=== PATIENT | male | born 1945 | race Caucasian/White ===

== ENCOUNTER 2021-10-07 08:59 | Outpatient (CLI) | payer MEDICARE, BC, SELFPAY | END 2021-10-07 09:00 | disposition home or self-care (01) | PROVIDERS: PCP Family Medicine; Visit Provider Nurse Practitioner Family | DX: I89.0 Lymphedema, not elsewhere classified (principal); I87.2 Venous insufficiency (chronic) (peripheral); L97.812 Non-pressure chronic ulcer of other part of right lower leg with fat layer exposed | CPT/HCPCS: 97597; 97598 ==

== ENCOUNTER 2021-10-12 11:20 | Inpatient (IN) | payer MEDICARE, BC, SELFPAY ==
[2021-10-12] VITALS (26 sets, daily range): BP systolic 94–127; BP diastolic 51–90; PULSE 60–156; RESP 20–31; TEMP 36.2–36.9; O2SAT 87–97; BMI 40.8; BMI 42.2
--- NOTE | 2021-10-12 11:59 | ED.NURSE ---
patient denies having left wrist pain, jaw, or chest pain like did before. stated is pain free now. did EKG and started a saline lock in the RAC #20. able to draw the labs at that time also ([id number])running a ED POC Trop with results pending. Dr. Landaverde is in talking with patient and who is at the bedside.
--- NOTE | 2021-10-12 12:01 | CRLHL7_ITS ---
For Patients: As a result of the Century Cures Act, medical imaging exams and procedure reports are released immediately into your electronic medical record. You may view this report before your referring provider. If you have questions, please contact your health care provider. INDICATION: Chest pain TECHNIQUE: Chest 1 view. COMPARISON: 01/14/2018 FINDINGS: Cardiovascular and mediastinum: Heart size and vasculature are normal in caliber and appearance. Mediastinum is within normal limits. Lungs and pleural space: Lungs are clear. No sign of infiltrate or mass. No sign of pleural effusion. No pneumothorax. Bones and soft tissues: No significant findings. IMPRESSION: Unremarkable chest. Dictated by Stoney Carroll MD @ 10/12/2021 12:57:54 PM Dictated by: Stoney Carroll MD @ 10/12/2021 12:57:59 (Electronically Signed)
--- NOTE | 2021-10-12 12:04 | ED.GENADULT ---
HPI - General Adult General Time Seen by Provider: 12:03 Date Seen: 10/12/21 Chief complaint: Chest Pain Stated complaint: Headache, numb left arm Time Seen by Provider: 10/12/21 11:43 Source: patient and family Mode of arrival: ambulatory Limitations: no limitations History of Present Illness HPI narrative: Patient is a 75-year-old white male who has been attending the wound care clinic for a nonhealing ulcer in his leg, he has got poor peripheral perfusion, stasis changes in his legs, and is scheduled to see vascular workup at a tertiary care center presents with onset of chest discomfort this morning that lasted about half an hour he had some left arm symptoms and pain, he also had a headache. His reports he had a stroke in the past. He sees Dr. Christoph [facility] for primary care. He has no chest pain currently, but he is noted to be in atrial fib with rapid ventricular rate of 136 beats per minute he appears to have an AFib flutter pattern by my reading of his EKG with variable ventricular response. He denies headache further at this point, he does take baby aspirin daily, he denies shortness of breath diet denies diaphoresis, denies sweating denies as I mentioned continuation of any chest pain. He presents to ER with his ambulatory for evaluation Related Data Home Medications Medication Instructions Recorded Confirmed albuterol sulfate 90 mcg/actuation INHALATION 10/12/21 aerosol inhaler atorvastatin 40 mg tablet mg 10/12/21 furosemide 20 mg tablet mg 10/12/21 potassium chloride 20 mEq meq PO 10/12/21 tablet,extended release Allergies Allergy/AdvReac Type Severity Reaction Status Date / Time codeine Allergy Mild Verified 10/12/21 11:39 Penicillins Allergy Rash Verified 10/12/21 11:39 dust Allergy Mild Uncoded 10/12/21 11:39 Review of Systems Status of ROS: Reports: 10 or more systems reviewed and unremarkable except as noted in History and below [facility] Medical History (Updated 10/12/21 @ 12:40 by Tanya Baldwin RN) Cellulitis Chronic respiratory failure COPD (chronic obstructive pulmonary disease) CVA (cerebral vascular accident) Lung nodule Obesity Obstructive sleep apnea Pneumonia Venous stasis dermatitis of both lower extremities Venous stasis ulcer Social History Smoking Status: Current every day smoker What tobacco products do you use: cigarettes Smoking packs per day: 15 Smoking cigarettes per day: 300.0 Years smoked: 60 Smoking pack-years: 900.00 Do you use any of these nicotine containing products: None Second hand tobacco smoke exposure: No How often do you have a drink containing alcohol: 4 or more times a week How many standard drinks containing alcohol do you have on a typical day: 3 or 4 How often do you have six or more drinks on one occasion: Daily or almost daily AUDIT-C Alcohol total score: 9 Non-prescribed substance use: marijuana (any form) Non-prescribed substance use details: pot occassionally service: Yes Exam Narrative: Exam Narrative: Objective: Patient is alert orient x3 HEENT is unremarkable no facial asymmetry, neck supple Chest is clear Heart irregular regular rhythm this tachycardic 2/6 systolic ejection murmur Abdomen is obese benign nontender Extremities show stasis changes in the legs Peripheral perfusion is poor in the lower extremities Marc delayed cap refill , neurologic exam is nonfocal. Skin as mentioned stasis changes in the lower extremities, did not examine his ulcer Const: Vital Signs, click to edit/add: Vital Signs - 24 hr 10/12/21 11:26 10/12/21 11:55 10/12/21 12:00 Temperature 98.4 F Pulse Rate [Right Radial] 136 H 134 H 134 H Respiratory Rate 26 H 26 H 31 H Blood Pressure [Ri ght Upper Arm] 95/64 102/71 103/65 Pulse Oximetry 92 92 93 10/12/21 12:15 10/12/21 12:30 Temperature Pulse Rate [Right Radial] 135 H 135 H Respiratory Rate 21 Blood Pressure [Ri ght Upper Arm] 103/65 103/66 Pulse Oximetry 93 94 Course Course Hospital Course: Patient has slightly low blood pressure 95/64, I think slowing his heart rate might actually help his perfusion and his blood pressure. Will try adenosine 6 mg 1st depending on clinical response would give him diltiazem IV. Will give some IV fluids, check labs, check troponin. He did have a episode of chest pain earlier today. Addendum: The patient will get IV diltiazem bolus and then drip to control his rate, subQ Lovenox. Discussed with hospitalist will follow in hospital on diltiazem drip and control rate trying to get an echocardiogram serial cardiac troponins Vital Signs Vital signs: Initial Vital Signs Temperature 98.4 F 10/12/21 11:26 Temperature Source Temporal Artery Scan 10/12/21 11:26 Pulse Rate 136 H 10/12/21 11:26 Pulse Rhythm 10/12/21 11:26 Pulse Strength 0+ Absent 10/12/21 11:26 Respiratory Rate 26 H 10/12/21 11:26 Blood Pressure 95/64 10/12/21 11:26 Blood Pressure Mean 74 10/12/21 11:26 Blood Pressure Position Sitting 10/12/21 11:26 Pulse Oximetry 92 10/12/21 11:26 Oxygen Delivery Method 10/12/21 11:26 Vital Signs Temperature 98.4 F 10/12/21 11:26 Pulse Rate 136 H 10/12/21 11:26 Respiratory Rate 26 H 10/12/21 11:26 Blood Pressure 95/64 10/12/21 11:26 Pulse Oximetry 92 10/12/21 11:26 Temperature 98.4 F 10/12/21 11:26 Pulse Rate 135 H 10/12/21 12:30 Respiratory Rate 21 10/12/21 12:30 Blood Pressure 103/66 10/12/21 12:30 Pulse Oximetry 94 10/12/21 12:30 Medical Decision Making MDM Narrative Medical decision making narrative: The patient presents with chest pain left arm symptoms and atrial fibrillation/flutter. He said it could have some demand ischemia, but will slow his heart rate, see how he progresses, check his troponins. Addendum: The patient got adenosine 6 mg IV and went into a 2-1 a flutter there was no marked change in his heart rhythm still remained at a ventricular rate 135. His followup EKG by my read shows the ventricular rate 135 with 2-1 a flutter. The patient will get diltiazem, will not give him a bolus that is consistent with his weight will do more of an ideal body weight at about 25 mg IV, then start an IV diltiazem drip to continue to control his rate. When his CT scan is negative he may benefit from medic coagulation. He did report having had a stroke before, and that is why repeat a CT given his headache this morning. He does have peripheral vascular disease, he has had a stroke and with his chest pain this morning in AFib he certainly could have coronary artery disease. Will see how his rate is controlled on the diltiazem bolus and drip, disposition planning at that time. Lab Data Labs: Lab Results 10/12/21 10/12/21 10/12/21 Range/Units 11:54 11:54 11:54 WBC 6.36 (4.50-11.00) K/uL RBC 3.80 L (4.30-5.90) m/uL Hgb 12.5 L (13.5-17.5) gm/dL Hct 37.9 (37.0-53.0) % MCV 100 (80-100) fL MCH 33 (26-34) pg MCHC 33 (32-36) gm/dL RDW Coeff of Alejandra 16.8 H (11.5-15.5) % Plt Count 193 (140-440) K/uL Neut % (Auto) 48.6 (42.0-72.0) % Lymph % (Auto) 35.8 (20-44) % [place] % (Auto) 12.4 H (0.0-11.0) % Eos % (Auto) 1.3 (0.0-7.0) % Baso % (Auto) 0.6 (0.0-3.0) % Neut # (Auto) 3.09 (1.7-7.0) K/uL Lymph # (Auto) 2.28 (0.90-2.90) K/uL [place] # (Auto) 0.80 (0.00-0.90) K/UL Eos # (Auto) 0.08 (0.00-0.50) K/uL Baso # (Auto) 0.04 (0.00-0.30) K/uL Abs Immat Gran (auto) 0.08 (0.00-0.30) K/uL Diff Slide Review Acceptable Review (Acceptable) INR 0.99 (0.91-1.10) Sodium 139 (135-149) mmol/L Potassium 4.0 (3.6-5.1) mmol/L Chloride 106 (96-114) mmol/L Carbon Dioxide 27 (20-32) mmol/L BUN 13 (7-30) mg/dL Creatinine 0.9 (0.5-1.5) mg/dL Estimated Creat Clear 72.13 Glucose 134 H (60-115) mg/dL Calcium 9.1 (8.4-10.6) mg/dL Total Bilirubin (0.1-1.5) mg/dL Direct Bilirubin (0.0-0.5) mg/dL AST (12-35) U/L ALT (4-50) U/L Alkaline Phosphatase (40-150) U/L C-Reactive Protein 1.0 (0.5-1.0) mg/dL Total Protein (6.0-8.3) g/dL Albumin (3.3-5.0) g/dL SARS-CoV-2 (PCR) (Negative) 10/12/21 10/12/21 Range/Units 11:54 12:02 WBC (4.50-11.00) K/uL RBC (4.30-5.90) m/uL Hgb (13.5-17.5) gm/dL Hct (37.0-53.0) % MCV (80-100) fL MCH (26-34) pg MCHC (32-36) gm/dL RDW Coeff of Alejandra (11.5-15.5) % Plt Count (140-440) K/uL Neut % (Auto) (42.0-72.0) % Lymph % (Auto) (20-44) % [place] % (Auto) (0.0-11.0) % Eos % (Auto) (0.0-7.0) % Baso % (Auto) (0.0-3.0) % Neut # (Auto) (1.7-7.0) K/uL Lymph # (Auto) (0.90-2.90) K/uL [place] # (Auto) (0.00-0.90) K/UL Eos # (Auto) (0.00-0.50) K/uL Baso # (Auto) (0.00-0.30) K/uL Abs Immat Gran (auto) (0.00-0.30) K/uL Diff Slide Review (Acceptable) INR (0.91-1.10) Sodium (135-149) mmol/L Potassium (3.6-5.1) mmol/L Chloride (96-114) mmol/L Carbon Dioxide (20-32) mmol/L BUN (7-30) mg/dL Creatinine (0.5-1.5) mg/dL Estimated Creat Clear Glucose (60-115) mg/dL Calcium (8.4-10.6) mg/dL Total Bilirubin 0.6 (0.1-1.5) mg/dL Direct Bilirubin 0.3 (0.0-0.5) mg/dL AST 27 (12-35) U/L ALT 25 (4-50) U/L Alkaline Phosphatase 128 (40-150) U/L C-Reactive Protein (0.5-1.0) mg/dL Total Protein 6.8 (6.0-8.3) g/dL Albumin 3.8 (3.3-5.0) g/dL SARS-CoV-2 (PCR) Negative SARS-CoV-2 (Negative) Critical Care Time Critical Care Time Critical Care Time: Yes Attestation: The patient required my highest level preparedness to intervene emergently and I personally spent this critical care time directly and personally managing the patient. This critical care time included: Obtaining a history; Examining the patient; Pulse oximetry; Ordering and reviewing of studies; Arranging urgent treatment with development of a management plan; Evaluation of patients response to treatment; Frequent reassessment discussions with other providers. This critical care time was performed to assess and manage the high probability of imminent life-threatening deterioration that could result in multiorgan failure. It was exclusive of separate billable procedures and treating other patients and teaching time. Total Critical Care Time in Minutes: 80 Discharge Plan Discharge Clinical Impression: Atrial fibrillation and flutter, Chest pain Patient Disposition: Admitted As Inpatient Condition: Stable
[2021-10-12 12:20] LABS: Basophils Absolute Auto 0.04 K/uL (0.00-0.30); Basophils Percent Auto 0.6 % (0.0-3.0); Eosinophils Absolute Auto 0.08 K/uL (0.00-0.50); Eosinophils Percent Auto 1.3 % (0.0-7.0); Hematocrit 37.9 % (37.0-53.0); Hemoglobin* 12.5 gm/dL (13.5-17.5); Immature Granulocytes Abs Auto 0.08 K/uL (0.00-0.30); Lymphocytes Absolute Auto 2.28 K/uL (0.90-2.90); Lymphocytes Percent Auto 35.8 % (20-44); Mean Corpuscular HGB Conc 33 gm/dL (32-36); Mean Corpuscular Hemoglobin 33 pg (26-34); Mean Corpuscular Volume 100 fL (80-100); Monocytes Percent Auto 12.4 % (0.0-11.0); Neutrophils Absolute Auto 3.09 K/uL (1.7-7.0); Neutrophils Percent Auto 48.6 % (42.0-72.0); Platelet Count* 193 K/uL (140-440); RDW Coefficient of Variation % 16.8 % (11.5-15.5); White Blood Count* 6.36 K/uL (4.50-11.00)
[2021-10-12] MEDS: ADENOSINE 6 MG/2ML INJ IVP (12:25)
[2021-10-12] MEDS: ASPIRIN 81 MG TAB.CHEW 324 MG PO (12:25)
[2021-10-12] MEDS: 0.9 % SODIUM CHLORIDE 500 ML 500 ML IV ×2 (12:26→13:54)
[2021-10-12 12:27] LABS: Slide Review Reflex Yes
--- NOTE | 2021-10-12 12:29 | ED.NURSE ---
Given adenosine 6 mg ivp with no change in the heart rate, remained at 136. patient is wanting a change in position as has a bad back. repeated a second EKG and given to . Portable CXR done in the room
[2021-10-12 12:34] LABS: Chloride* 106 mmol/L (96-114)
[2021-10-12 12:35] LABS: Sodium* 139 mmol/L (135-149)
[2021-10-12 12:36] LABS: Albumin* 3.8 g/dL (3.3-5.0)
[2021-10-12 12:37] LABS: Creatinine* 0.9 mg/dL (0.5-1.5); Est. Creatinine Clearance* 72.13; Estimated Glomerular Filt Rate 89.07
[2021-10-12 12:38] LABS: Blood Urea Nitrogen* 13 mg/dL (7-30); Carbon Dioxide* 27 mmol/L (20-32)
[2021-10-12 12:39] LABS: Alkaline Phosphatase* 128 U/L (40-150); Aspartate Amino Transferase* 27 U/L (12-35); Bilirubin Direct* 0.3 mg/dL (0.0-0.5); Bilirubin Total* 0.6 mg/dL (0.1-1.5); Calcium* 9.1 mg/dL (8.4-10.6); Glucose* 134 mg/dL (60-115); Total Protein* 6.8 g/dL (6.0-8.3)
[2021-10-12 12:40] LABS: Alanine Aminotransferase* 25 U/L (4-50)
[2021-10-12 12:41] LABS: INR 0.99 (0.91-1.10); Prothrombin Time 13.5 Seconds
[2021-10-12 12:47] LABS: Slide Review Acceptable Review (Acceptable)
--- NOTE | 2021-10-12 12:56 | ED.NURSE ---
Unable to tolerate the ct and returned as patient was unable to lay flat. Informed Dr. Landaverde of this and may need to give medication for this issue.
[2021-10-12 13:07] LABS: SARS PCR* Negative SARS-CoV-2 (Negative)
[2021-10-12] MEDS: dilTIAZem 5 MG/ML inj 25 MG IVP (13:14)
--- NOTE | 2021-10-12 13:25 | ED.NURSE ---
Per MD, administer Lovenox 120 mg. - not 125 mg.
[2021-10-12 13:28] LABS: Troponin, Point-of-Care* 0.03 ng/ml (0.01-0.04)
[2021-10-12 13:33] LABS: Troponin I* < 0.01 ng/mL (0.01-0.04)
[2021-10-12] MEDS: ENOXAPARIN 120 MG/0.8 ML INJ 125 MG SUBCUT (13:37)
[2021-10-12] MEDS: dilTIAZem HCL 125 MG in 0.9 % SODIUM CHLORIDE 100 ml 100 ML IVPB (13:37)
--- NOTE | 2021-10-12 14:00 | ED.NURSE ---
Pt requesting food. Okayed with MD. Durbin ordered.
--- NOTE | 2021-10-12 15:10 | P.IMHP_ITS ---
Hospitalist- H&P: HPI History of Present Illness Time Seen by Provider: 15:10 Date Seen: 10/12/21 Chief complaint: Headache, numb left arm Narrative: Andrew Shields is a 75 year old male with past medical history noted below including COPD, BRITNEY (on CPAP), active tobacco use (1ppd), peripheral vascular disease presenting for evaluation of headache and dizziness. He endorsed palpitations earlier today along with headache and dizziness. He denied chest pain, chest pressure, fever and cough. He endorses chronic lower extremity edema. He follows with wound care for lower extremity wounds. He presented to ED where he was noted to be in Afib w/RVR. He was started on diltiazem, given IVF, aspirin, lovenox and admitted for further evaluation. Review of Systems Status of ROS: Reports: 10 or more systems reviewed and unremarkable except as noted in History and below [facility] Medical History Cellulitis Chronic respiratory failure COPD (chronic obstructive pulmonary disease) CVA (cerebral vascular accident) Lung nodule Obesity Obstructive sleep apnea Pneumonia Venous stasis dermatitis of both lower extremities Venous stasis ulcer Social History Highest level of school completed/degree received: 12th grade, no diploma Smoking Status: Current every day smoker What tobacco products do you use: cigarettes Smoking packs per day: 1 Smoking cigarettes per day: 20.0 Years smoked: 60 Smoking pack-years: 60.00 Do you use any of these nicotine containing products: None Second hand tobacco smoke exposure: No How often do you have a drink containing alcohol: 4 or more times a week Alcohol type: hard liquor How many standard drinks containing alcohol do you have on a typical day: 3 or 4 How often do you have six or more drinks on one occasion: Daily or almost daily AUDIT-C Alcohol total score: 9 Non-prescribed substance use: marijuana (any form) Non-prescribed substance use details: pot occassionally Caffeine: Yes Gender Identity: male service: Yes Meds Home Medications and Allergies Home Medications Medication Instructions Recorded Confirmed Type acetaminophen 500 mg capsule 500 - 1,000 mg PO Q6H PRN 10/12/21 10/12/21 History albuterol sulfate 90 mcg/actuation 2 puff INHALATION QID PRN 10/12/21 10/12/21 History aerosol inhaler aspirin 81 mg chewable tablet 81 mg PO DAILY 10/12/21 10/12/21 History atenolol 25 mg tablet 25 mg PO DAILY 10/12/21 10/12/21 History atorvastatin 40 mg tablet 40 mg PO HS 10/12/21 10/12/21 History fluticasone fur. 100 mcg-umeclid 1 inh INHALATION DAILY 10/12/21 10/12/21 History 62.5 mcg-vilant 25 mcg inhalat.powder (Trelegy Ellipta) furosemide 20 mg tablet 20 mg PO BID@09,16 10/12/21 10/12/21 History omega 6-bdi-cua-fish oil 1,000 mg 1 cap PO DAILY 10/12/21 10/12/21 History (120 mg-180 mg) capsule (Fish Oil) potassium chloride 20 mEq 20 meq PO BIDWM 10/12/21 10/12/21 History tablet,extended release tramadol 50 mg tablet 50 mg PO Q12H PRN 10/12/21 10/12/21 History Allergies Allergy/AdvReac Type Severity Reaction Status Date / Time codeine Allergy Mild Verified 10/12/21 11:39 Penicillins Allergy Rash Verified 10/12/21 11:39 dust Allergy Mild Uncoded 10/12/21 11:39 Exam Narrative: Exam Narrative: Skin: venous stasis/purpura of extremities chronic venous ulcer right lower extremity Ext: 2+ bilateral lower extremity edema Const: Vital Signs, click to edit/add: Vital Signs - 24 hr 10/12/21 11:26 10/12/21 11:55 10/12/21 12:00 Temperature 98.4 F Pulse Rate [Right Radial] 136 H 134 H 134 H Respiratory Rate 26 H 26 H 31 H Blood Pressure [Ri ght Upper Arm] 95/64 102/71 103/65 Pulse Oximetry 92 92 93 10/12/21 12:15 10/12/21 12:30 10/12/21 12:54 Temperature Pulse Rate [Right Radial] 135 H 135 H 133 H Respiratory Rate 21 24 Blood Pressure [Ri ght Upper Arm] 103/65 103/66 117/78 Pulse Oximetry 93 94 94 10/12/21 13:00 10/12/21 13:30 10/12/21 13:49 Temperature Pulse Rate [Right Radial] 135 H 135 H 133 H Respiratory Rate 26 H 24 24 Blood Pressure [Ri ght Upper Arm] 111/90 H 94/70 114/78 Pulse Oximetry 94 93 94 10/12/21 14:00 10/12/21 14:10 10/12/21 14:20 Temperature 98.4 F Pulse Rate [Right Radial] 136 H 136 H 156 H Respiratory Rate 24 22 24 Blood Pressure [Ri ght Upper Arm] 117/78 105/81 122/77 Pulse Oximetry 97 95 90 10/12/21 14:30 10/12/21 14:40 Temperature Pulse Rate [Right Radial] 135 H 151 H Respiratory Rate 26 H Blood Pressure [Ri ght Upper Arm] 127/77 112/84 Pulse Oximetry 94 95 Common normals: no apparent distress and oriented x3 General appearance: cooperative HENMT: Common normals: normocephalic Head and scalp: normocephalic Eye: Common normals: EOMs intact bilaterally Neck & C-Spine: Common normals: supple Chest: Common normals: inspection of chest normal Resp: Common normals: clear to auscultation bilaterally Auscultation: clear to auscultation bilaterally Cardio: Other: Tachycardic; IRIR GI: Common normals: soft to palpation and non-tender Palpation: soft Neuro: Common normals: oriented x3 and CN's II-XII intact bilaterally Speech: speech normal Psych: Other: poor insight Hospitalist - H&P: Result Labs Labs: Short CBC 10/12/21 Range/Units 11:54 WBC 6.36 (4.50-11.00) K/uL Hgb 12.5 L (13.5-17.5) gm/dL Hct 37.9 (37.0-53.0) % Plt Count 193 (140-440) K/uL BMP 10/12/21 11:54 Sodium 139 Potassium 4.0 Chloride 106 Carbon Dioxide 27 BUN 13 Creatinine 0.9 Glucose 134 H Calcium 9.1 Cardiac Enzymes 10/12/21 Range/Units 11:54 Troponin I < 0.01 L (0.01-0.04) ng/mL Liver Function 10/12/21 Range/Units 11:54 Total Bilirubin 0.6 (0.1-1.5) mg/dL Direct Bilirubin 0.3 (0.0-0.5) mg/dL AST 27 (12-35) U/L ALT 25 (4-50) U/L Alkaline Phosphatase 128 (40-150) U/L Albumin 3.8 (3.3-5.0) g/dL Assessment and Plan Assessment and plan (1) Atrial fibrillation and flutter: Status: Acute Plan Assessment: Andrew Shields is a 75 year old male with past medical history noted below including COPD, BRITNEY (on CPAP), active tobacco use (1ppd), peripheral vascular disease presenting for evaluation of headache and dizziness. He endorsed palpitations earlier today along with headache and dizziness. He denied chest pain, chest pressure, fever and cough. He endorses chronic lower extremity edema. He follows with wound care for lower extremity wounds. He presented to ED where he was noted to be in Afib w/RVR. He was started on diltiazem, given IVF, aspirin, lovenox and admitted for further evaluation. 1. Afib/flutter with RVR 2. Hx of COPD 3. Hx of severe peripheral vascular disease 4. Hx of Depression 5. Hx of Fatty liver 6. Hx of ischemic cva 7. Hx of chronic back pain 8. Hx of chronic tremor; on atenolol 9. Active tobacco use disorder 10. Hx of BRITNEY 11. Hx of venous stasis/chronic lower extremity wound; follows with wound clinic 12. Rule out CHF Plan -admit to inpatient -echo -tele -IV lasix -scheduled duonebs -tobacco cessation counseling; nicotin patch -start PO metoprolol -prn IV metoprolol -start eliquis tomorrow; given lovenox in the ED -check TSh, BNP, BMP, CBC; follow/replace electrolytes Code-full DVT ppx-on lovenox; then eliquis
[2021-10-12] MEDS: FUROSEMIDE 10 MG/ML inj 20 MG IV ×2 (16:34→21:10)
[2021-10-12] MEDS: IPRAT-ALBUT 0.5-2.5 MG/3 ML NEB 1 NEB IH ×2 (16:35→21:10)
[2021-10-12] MEDS: NICOTINE 21 MG PATCH 1 PATCH TRANSDERMA (16:35)
[2021-10-12] MEDS: LORazepam 2 MG/ML inj 0.5 MG IVP (16:38)
[2021-10-12] MEDS: POTASSIUM CHLORIDE 10 MEQ CAPSULE ER 20 MEQ PO (17:08)
[2021-10-12] MEDS: METOPROLOL TARTRATE 25 MG TABLET PO ×2 (17:08→21:10)
--- NOTE | 2021-10-12 19:33 | PC.NURSE ---
End of shift. pt was admitted to room cc3 from ED via w/c, unit pt. tele is on, Dilt drip @ 15 and 02 0n @ 2L nc. he was A-fib with RVR. when doing admission VS, noticed he was in a regular rate. md was notified, and EKG was done with NSR. drips was turned to 10 then 5 then off per md. Pt is still sob at times. @l NC on pt. he has a Bipap/CPAP he bleeds o2 in to it. he is up with SBA to the BR. he is eating, drinking and voiding. he has a chronic ulcer on his right lower leg that he has a Mepilex dressing on and he sees the wound clinic for this. Pt has said he is leaving 30 times since his admission. he had a stroke 3 years ago and has a bad left hip and back. he usually sleeps in the recliner. he has a nicotine path on his right upper arm. he smokes approx 1 pack a day. he has hard alcohol 3-4 a day he says usually 3-4 finger of vodka in each drink. he has not gone thur withdrawals. Echo was done and md has been updated. he has +3 pitting edema in his lower legs. leg have caty status changes.
[2021-10-12] MEDS: ATORVASTATIN CALCIUM 40 MG TABLET PO (21:09)
[2021-10-13 03:00] VITALS: BP 139/69; O2SAT 93
[2021-10-13 03:30] VITALS: O2SAT 93
--- NOTE | 2021-10-13 06:08 | PC.NURSE ---
Pt pleasant and cooperative. He slept well for 3hrs once his CPAP was brought in by family. He is up with SBA and his walker that family brought in. He did get up during the noc and took a walk aroung the unit. TELE remained showing NSR. VSS. He cont to want to go home today.
[2021-10-13 07:14] LABS: Basophils Absolute Auto 0.05 K/uL (0.00-0.30); Basophils Percent Auto 0.7 % (0.0-3.0); Eosinophils Absolute Auto 0.07 K/uL (0.00-0.50); Eosinophils Percent Auto 0.9 % (0.0-7.0); Hematocrit 34.2 % (37.0-53.0); Immature Granulocytes Abs Auto 0.08 K/uL (0.00-0.30); Lymphocytes Absolute Auto 2.32 K/uL (0.90-2.90); Mean Corpuscular HGB Conc 32 gm/dL (32-36); Mean Corpuscular Hemoglobin 32 pg (26-34); Mean Corpuscular Volume 101 fL (80-100); Monocytes Percent Auto 14.3 % (0.0-11.0); Neutrophils Absolute Auto 3.89 K/uL (1.7-7.0); Platelet Count* 163 K/uL (140-440); RDW Coefficient of Variation % 16.9 % (11.5-15.5); Red Blood Count 3.39 m/uL (4.30-5.90); White Blood Count* 7.48 K/uL (4.50-11.00)
[2021-10-13 07:17] LABS: Slide Review Reflex No
[2021-10-13 07:29] VITALS: PULSE 65
[2021-10-13 07:35] LABS: Magnesium* 1.8 mg/dL (1.5-2.6)
[2021-10-13 08:43] VITALS: BP 112/57; PULSE 70; RESP 20; TEMP 36.1; O2SAT 90; O2SAT 93
[2021-10-13] MEDS: METOPROLOL TARTRATE 25 MG TABLET PO (09:32)
[2021-10-13] MEDS: APIXABAN 5 MG TABLET PO (09:33)
[2021-10-13] MEDS: POTASSIUM CHLORIDE 10 MEQ CAPSULE ER 20 MEQ PO (09:33)
[2021-10-13] MEDS: FUROSEMIDE 10 MG/ML inj 20 MG IV (09:34)
[2021-10-13] MEDS: ASPIRIN 81 MG TAB.CHEW PO (09:34)
[2021-10-13] MEDS: IPRAT-ALBUT 0.5-2.5 MG/3 ML NEB 1 NEB IH (09:37)
[2021-10-13 10:07] VITALS: PULSE 70; RESP 20
[2021-10-13 11:04] VITALS: BP 111/56; PULSE 84; RESP 20; TEMP 36.2; O2SAT 90
--- NOTE | 2021-10-13 14:00 | PC.NURSE ---
Discharge. pt has been pleasant at times. he is alert. he has chronic back and left hip pain and did not want anything for it. tele was NSR and it was d/c. he was made floor pt. cpap was on when pt was napping. he has been on RA all day. SL was d/c intact. he is up with sba, walker and GB. he had a shower. PT worked with him. he is eating, drinking and voiding. ? he has a chronic ulcer on his right lower leg that he has a Mepilex dressing on and he sees the wound clinic for this.?? he usually sleeps in the recliner.? he has a nicotine patch on pt said he took it off in the shower. ? he has +3 pitting edema in his lower legs.? leg have caty status changes.?went over discharge packet with pt, went over medication, appt, instructions and education. pt went over and signed personal belonging sheet. he got a w.c ride to his car and was helped in to his car. all belongings and paperwork where sent with pt.
--- NOTE | 2021-10-17 11:53 | PM.DS1 ---
DS: Providers Provider Time Seen by Provider: 10:00 Date Seen: 10/13/21 Date of admission: 10/12/21 14:44 Primary care physician: Marcio Gonzalez MD Admitting Clinician: MD Jose Medina MD Consults: 10/12/21 14:57 Consult to Physical Therapy [CONS] Routine Comment: Reason(s) for PT Consult:: Balance Assessment Any Restrictions?:: No Restrictions Attending Physician on discharge: Jose Turcios MD Date of Discharge: 10/13/21 DS: Diagnosis Discharge Diagnosis (1) Paroxysmal atrial fibrillation with rapid ventricular response: Status: Acute (2) Atrial fibrillation and flutter: Status: Acute (3) COPD (chronic obstructive pulmonary disease): Status: Acute (4) Chronic respiratory failure: Status: Acute (5) Chest pain: Status: Acute (6) Obstructive sleep apnea: Status: Acute (7) Obesity: Status: Acute (8) Lung nodule: Status: Acute (9) Venous stasis dermatitis of both lower extremities: Status: Acute (10) Venous stasis ulcer: Status: Acute DS: Summary Hospital Course Hospital Course: 75-year-old man with known advanced lung disease including COPD, obstructive sleep apnea, tobacco use, chronic hypoxemic respiratory failure, presented with increased dyspnea and chest discomfort and found to have atrial fib with RVR. Adenosine administered in the emergency department without affect. Started on diltiazem. Admitted to the hospital. In a relatively short period of time he converted back to normal sinus rhythm. Remained in a normal sinus rhythm throughout the remainder of hospital stay. No ischemic changes by telemetry, EKG, or biochemical testing. Echocardiogram revealed normal appearing atria. Normal ejection fraction. Also on presentation patient was started on anticoagulation. Given that this is the 1st time that we have documented atrial fibrillation and he converted back to sinus rhythm in a relatively short period of time, the decision was made to not continue him on anticoagulation at the time of discharge. We did recommend that he have continuous monitoring of his heart rhythm. We were unable to arrange for him to have a Zio patch applied. Thus I did arrange for 48 hours of Holter monitoring and follow-up with his primary care of care physician for decision about additional testing and referral to Cardiology. Discussed with patient and family measures he can take to try to avoid recurrence of paroxysmal atrial fibrillation. Included in discussion I specifically admonished him to decrease his consumption of alcohol considerably. Answered his questions and his family's questions to their satisfaction. Patient was not very receptive to the discussion about means of decreasing his risk for recurrence of paroxysmal atrial fib with RVR. He acted put out and angry that we are discussing this. Time spent discussing smoking cessation with patient: 3 to 10 minutes Status at Discharge Cognitive/behavioral status at discharge: Awake, alert, oriented to self, place, time, situation. Somewhat hard of hearing. Not receptive to discussion about means of lowering his risk for recurrent paroxysmal atrial fibrillation with RVR, specifically with discussion about decreasing his alcohol consumption. Functional status at discharge: independent ambulation Overall status at discharge: patient is back to baseline Time Spent with Patient Time attestation: Total time spent providing and/or coordinating discharge services: Time spent: Greater than 30 minutes Exam Narrative: Exam Narrative: Lungs with the chronic wheezing, not new. Scattered rhonchi that clear with coughing, not new. No rales. Barrel-shaped chest. Heart tones with regular rhythm, normal S1-S2. Abdomen is obese with active bowel sounds, soft, nontender. Extremities with trace edema pretibially bilaterally. Independent in transfer, station, and gait. Skin is warm, dry, intact. Const: Documenting provider has reviewed patient's vital signs: yes Discharge Plan Discharge Disposition: Home, Self-Care Date of Admission: 10/12/21 14:44 Attending Provider on Discharge: Jose Turcios Primary Care Provider: Marcio Gonzalez Condition: Stable Anticipated Discharge Date/Time: 10/13/21 13:00 Discharge Medications: New atenolol 25 mg tablet 25 mg PO BID Qty: 60 2RF Continued atorvastatin 40 mg tablet 40 mg PO HS 0RF Label Comments: TAKE 1 TABLET BY MOUTH EVERY DAY AT BEDTIME furosemide 20 mg tablet 20 mg PO BID@09,16 0RF Label Comments: TAKE 1 TABLET BY MOUTH TWICE A DAY albuterol sulfate 90 mcg/actuation HFA aerosol inhaler 2 puff INHALATION QID PRN (Reason: shortness of breath or wheezing) 0RF Label Comments: INHALE 2 PUFFS 4 TIMES DAILY IF NEEDED FOR SHORTNESS OF BREATH 1ST CHOICE OR WHEEZING 2ND CHOICE potassium chloride 20 mEq tablet extended release 20 meq PO BIDWM 0RF Label Comments: TAKE 1 TABLET BY MOUTH TWICE A DAY WITH MEALS tramadol 50 mg tablet 50 mg PO Q12H PRN (Reason: pain) 0RF Label Comments: takes prior to dressing change Trelegy Ellipta 100-62.5-25 mcg blister with device 1 inh INHALATION DAILY 0RF aspirin 81 mg tablet,chewable 81 mg PO DAILY 0RF omega 1-dgl-zdk-fish oil [Fish Oil] 1,000 mg (120 mg-180 mg) capsule 1 cap PO DAILY 0RF acetaminophen 500 mg capsule 500 - 1,000 mg PO Q6H PRN0RF Discontinued atenolol 25 mg tablet 25 mg PO DAILY 0RF Label Comments: TAKE 1 TABLET BY MOUTH EVERY DAY Discharge Orders: Discharge Order (Routine); Ordered 10/13/21 Ordered By: Jose Turcios Patient Education: Atenolol (By mouth), A-fib (Atrial Fibrillation) (GEN) Activity Restrictions/Additional Instructions: 1. Holter monitor, 48 hours, results to Dr. Marcio Gonzalez, [facility], [place], [place]. 2. Avoid tobacco smoke exposure of any kind. Activity Level: Activity as Tolerated Discharge Diet: Heart Healthy (2 gm sodium, low fat) Diet Detail: 1. Minimal alcohol consumption at the most, preferably no alcohol consumption, to minimize risk of complications, including heart rhythm problems. Follow Up Appointments: Marcio Gonzalez MD [Primary Care Provider] - 10/21/21 11:15 am (Consider Zio Patch for heart rhythm monitoring) Forms: MyHealth Info Instructions
[2021-10-18 12:41] LABS: Chloride* 108 mmol/L (96-114); Potassium* 4.5 mmol/L (3.6-5.1); Sodium* 139 mmol/L (135-149)
[2021-10-18 12:44] LABS: Blood Urea Nitrogen* 14 mg/dL (7-30); Calcium* 8.5 mg/dL (8.4-10.6); Carbon Dioxide* 21 mmol/L (20-32); Creatinine* 0.9 mg/dL (0.5-1.5); Est. Creatinine Clearance* 72.13; Estimated Glomerular Filt Rate 89.07; Glucose* 100 mg/dL (60-115)
== END 2021-10-13 13:35 | disposition home or self-care (01) | DRG 309 ==
LOC: ED 13:13 → MEDSURG 14:45
PROVIDERS: Admitting Provider Hospitalist; Emergency Provider Family Medicine; PCP Family Medicine; Visit Provider Hospitalist
DX: I48.0 Paroxysmal atrial fibrillation (principal); J96.11 Chronic respiratory failure with hypoxia; L97.819 Non-pressure chronic ulcer of other part of right lower leg with unspecified severity; I48.92 Unspecified atrial flutter; R07.9 Chest pain, unspecified; J44.9 Chronic obstructive pulmonary disease, unspecified; G47.33 Obstructive sleep apnea (adult) (pediatric); E66.9 Obesity, unspecified; F17.210 Nicotine dependence, cigarettes, uncomplicated; I73.9 Peripheral vascular disease, unspecified; F32.A Depression, unspecified; R91.1 Solitary pulmonary nodule; I87.2 Venous insufficiency (chronic) (peripheral)
CPT/HCPCS: 36415; 71045; 80048; 80076; 83735; 84443; 84484; 85025; 85610; 86140; 87635; 93005; 93225; 93226; 93306; 94640; 97116; 97161; 97530; 99285; 99291; A9270; J0153; J1650; J1940; J2060; J3490; J7120; S4990

== ENCOUNTER 2021-10-14 08:57 | Outpatient (CLI) | payer MEDICARE, BC, SELFPAY | END 2021-10-14 08:58 | disposition home or self-care (01) | LOC: WOUND 08:58 | PROVIDERS: PCP Family Medicine; Visit Provider Physician Assistant Surgical | DX: I70.232 Atherosclerosis of native arteries of right leg with ulceration of calf (principal); L97.812 Non-pressure chronic ulcer of other part of right lower leg with fat layer exposed; I87.2 Venous insufficiency (chronic) (peripheral); I89.0 Lymphedema, not elsewhere classified | CPT/HCPCS: 97597; 97598 ==

== ENCOUNTER 2021-10-28 09:32 | Outpatient (CLI) | payer MEDICARE, BC, SELFPAY | END 2021-10-28 09:33 | disposition home or self-care (01) | LOC: WOUND 09:33 | PROVIDERS: PCP Family Medicine; Visit Provider Physician Assistant Surgical | DX: I70.232 Atherosclerosis of native arteries of right leg with ulceration of calf (principal); I87.2 Venous insufficiency (chronic) (peripheral); I89.0 Lymphedema, not elsewhere classified; L97.911 Non-pressure chronic ulcer of unspecified part of right lower leg limited to breakdown of skin | CPT/HCPCS: 99213 ==

== ENCOUNTER 2022-05-03 09:28 | Outpatient (CLI) | payer MEDICARE, BC, SELFPAY | END 2022-05-03 09:29 | disposition home or self-care (01) | LOC: WOUND 09:29 | PROVIDERS: PCP Family Medicine; Visit Provider Surgery | DX: I70.232 Atherosclerosis of native arteries of right leg with ulceration of calf (principal); L97.211 Non-pressure chronic ulcer of right calf limited to breakdown of skin | CPT/HCPCS: 97597; 97598; 99213 ==

== ENCOUNTER 2022-05-10 09:33 | Outpatient (CLI) | payer MEDICARE, BC, SELFPAY | END 2022-05-10 09:34 | disposition home or self-care (01) | LOC: WOUND 09:34 | PROVIDERS: PCP Family Medicine; Visit Provider Surgery | DX: I70.232 Atherosclerosis of native arteries of right leg with ulceration of calf (principal); L97.212 Non-pressure chronic ulcer of right calf with fat layer exposed | CPT/HCPCS: 99213 ==

== ENCOUNTER 2022-05-17 09:35 | Outpatient (CLI) | payer MEDICARE, BC, SELFPAY | END 2022-05-17 09:36 | disposition home or self-care (01) | LOC: WOUND 09:35 | PROVIDERS: PCP Family Medicine; Visit Provider Physician Assistant Surgical | DX: I70.232 Atherosclerosis of native arteries of right leg with ulceration of calf (principal); L97.211 Non-pressure chronic ulcer of right calf limited to breakdown of skin; I73.9 Peripheral vascular disease, unspecified | CPT/HCPCS: 99212 ==

== ENCOUNTER 2022-10-19 08:02 | Outpatient (CLI) | payer MEDICARE, BC, SELFPAY | END 2022-10-19 08:03 | disposition home or self-care (01) | PROVIDERS: PCP Family Medicine; Visit Provider Nurse Practitioner Family | DX: I87.311 Chronic venous hypertension (idiopathic) with ulcer of right lower extremity (principal); L97.212 Non-pressure chronic ulcer of right calf with fat layer exposed; I89.0 Lymphedema, not elsewhere classified; Z72.0 Tobacco use | CPT/HCPCS: 11042; 99213 ==

== ENCOUNTER 2022-10-26 08:33 | Outpatient (CLI) | payer MEDICARE, BC, SELFPAY | END 2022-10-26 08:34 | disposition home or self-care (01) | LOC: WOUND 08:33 | PROVIDERS: PCP Family Medicine; Visit Provider Nurse Practitioner Family | DX: I87.311 Chronic venous hypertension (idiopathic) with ulcer of right lower extremity (principal); L97.212 Non-pressure chronic ulcer of right calf with fat layer exposed; I89.0 Lymphedema, not elsewhere classified; Z72.0 Tobacco use | CPT/HCPCS: 11042; 11045 ==

== ENCOUNTER 2022-11-02 10:02 | Outpatient (CLI) | payer MEDICARE, BC, SELFPAY | END 2022-11-02 10:03 | disposition home or self-care (01) | LOC: WOUND 10:02 | PROVIDERS: PCP Family Medicine; Visit Provider Nurse Practitioner Family | DX: I87.311 Chronic venous hypertension (idiopathic) with ulcer of right lower extremity (principal); L97.212 Non-pressure chronic ulcer of right calf with fat layer exposed; I89.0 Lymphedema, not elsewhere classified | CPT/HCPCS: 11042 ==

== ENCOUNTER 2022-11-08 10:14 | Outpatient (CLI) | payer MEDICARE, BC, SELFPAY | END 2022-11-08 10:15 | disposition home or self-care (01) | LOC: AMB 11-11 20:24 | PROVIDERS: PCP Family Medicine; Visit Provider Family Medicine | DX: I49.9 Cardiac arrhythmia, unspecified (principal); R06.09 Other forms of dyspnea | CPT/HCPCS: A0425; A0429 ==

== ENCOUNTER 2022-11-08 10:42 | Inpatient (IN) | payer MEDICARE, BC, SELFPAY ==
[2022-11-08] VITALS (53 sets, daily range): BP systolic 84–120; BP diastolic 54–81; PULSE 138–146; RESP 18–22; TEMP 36.8–37.1; O2SAT 83–96; BMI 39.8; BMI 39.9
--- NOTE | 2022-11-08 11:15 | ED_ITS ---
HPI - Arrhythmia/Palpitations General Chief Complaint: Arrhythmia/Palpitations Stated Complaint: COPD Time Seen by Provider: 11/08/22 10:54 History of Present Illness HPI narrative: This 76-year-old male came in for a lung scan today and was noted to have increased heart rate and was sent here for further evaluation. He does have a history of paroxysmal atrial fibrillation. He arrives with atrial flutter and heart rate at 144 beats per minute. He states that he overslept this morning and did not take his medications. His medication list does include baby aspirin, Plavix, and atenolol among other medications. He states that he does not have any chest pain, shortness of breath, nausea, vomiting, lightheadedness. He was not aware that his heart was going fast. He thinks that this may have started this morning. He states that he does everything wrong in that he smokes and drinks alcohol. Related Data Home Medications Medication Instructions Recorded Confirmed acetaminophen 500 mg capsule 500 - 1,000 mg PO Q6H PRN 10/12/21 11/08/22 albuterol sulfate 90 mcg/actuation 2 puff inhalation QID PRN 10/12/21 11/08/22 aerosol inhaler shortness of breath or wheezing aspirin 81 mg chewable tablet 81 mg PO DAILY 10/12/21 11/08/22 atorvastatin 40 mg tablet 40 mg PO HS 10/12/21 11/08/22 fluticasone fur. 100 mcg-umeclid 1 inh inhalation DAILY 10/12/21 10/12/21 62.5 mcg-vilant 25 mcg inhalat.powder (Trelegy Ellipta) furosemide 20 mg tablet 20 mg PO BID@09,16 10/12/21 11/08/22 omega 1-jzt-esn-fish oil 1,000 mg 1 cap PO DAILY 10/12/21 10/12/21 (120 mg-180 mg) capsule (Fish Oil) potassium chloride 20 mEq 20 meq PO BIDWM 10/12/21 11/08/22 tablet,extended release tramadol 50 mg tablet 50 mg PO Q12H PRN pain 10/12/21 11/08/22 Previous Rx's Medication Instructions Recorded atenolol 25 mg tablet 25 mg PO BID #60 tabs 10/13/21 Allergies Allergy/AdvReac Type Severity Reaction Status Date / Time codeine Allergy Mild Verified 10/12/21 11:39 Penicillins Allergy Rash Verified 10/12/21 11:39 dust Allergy Mild Uncoded 10/12/21 11:39 Review of Systems Status of ROS: Reports: 10 or more systems reviewed and unremarkable except as noted in History and below Narrative: Constitutional: No fevers, no weight gain or loss. Eyes: No discharge. No vision changes. HENT: No congestion, no sore throat, no ear pain. Cardiovascular: No chest pain, no palpitations. Respiratory: No shortness of breath, no wheezes, no cough. Gastrointestinal: No abdominal pain, no vomiting, no diarrhea. Genitourinary: No dysuria, no hematuria. Musculoskeletal: Normal range of motion. Chronic back pain. Skin: No rashes, no pruritis. Chronic wound in his right leg that he goes to the wound clinic for treatment. Neurological: No dizziness, weakness, sensory change, speech change. Endo/Heme/Allergies: No bruising or bleeding. No polydipsia. Pysch: no suicidality, no anxiety, no insomnia. All other systems reviewed and are negative. [facility] Medical History (Updated 11/08/22 @ 14:25 by Bobby Butt MD) Venous stasis ulcer ?I83.009 - Varicose veins of unspecified lower extremity with ulcer of unspecified site (ICD-10) ?L97.909 - Non-pressure chronic ulcer of unspecified part of unspecified lower leg with unspecified severity (ICD-10) Cellulitis ?L03.90 - Cellulitis, unspecified (ICD-10) Venous stasis dermatitis of both lower extremities ?I87.2 - Venous insufficiency (chronic) (peripheral) (ICD-10) CVA (cerebral vascular accident) ?I63.9 - Cerebral infarction, unspecified (ICD-10) Obesity ?E66.9 - Obesity, unspecified (ICD-10) Obstructive sleep apnea ?G47.33 - Obstructive sleep apnea (adult) (pediatric) (ICD-10) Lung nodule ?R91.1 - Solitary pulmonary nodule (ICD-10) Chronic respiratory failure ?J96.10 - Chronic respiratory failure, unspecified whether with hypoxia or hypercapnia (ICD-10) Pneumonia ?J18.9 - Pneumonia, unspecified organism (ICD-10) COPD (chronic obstructive pulmonary disease) ?J44.9 - Chronic obstructive pulmonary disease, unspecified (ICD-10) Social History Highest level of school completed/degree received: 12th grade, no diploma Smoking Status: Current every day smoker What tobacco products do you use: cigarettes Smoking packs per day: 1 Smoking cigarettes per day: 20.0 Years smoked: 60 Smoking pack-years: 60.00 Do you use any of these nicotine containing products: None Second hand tobacco smoke exposure: No How often do you have a drink containing alcohol: 4 or more times a week Alcohol type: hard liquor How many standard drinks containing alcohol do you have on a typical day: 3 or 4 How often do you have six or more drinks on one occasion: Daily or almost daily AUDIT-C Alcohol total score: 9 Non-prescribed substance use: marijuana (any form) Non-prescribed substance use details: pot occassionally Caffeine: Yes Gender Identity: male service: Yes Exam Narrative: Exam Narrative: Constitutional: Well-developed, well-nourished, no acute distress. HEENT: Normocephalic, atraumatic. Neck: Normal range of motion. Nontender. Supple. Heart: Tachycardia. Intact distal pulses. Lungs: Clear to auscultation. No chest discomfort. No wheezes, rhonchi, or rales. Abdomen: Normal bowel sounds. Nontender. No rebound tenderness. Genitalia: Deferred. Back: No midline tenderness. Normal range of motion. Extremities: Normal range of motion. Pedal edema. He is wearing compression stockings. Skin: Intact. No rash. Warm. No erythema or pallor. Neurologic: No altered sensation. No weakness. Alert and oriented. Psychiatric: No suicidality. No anxiety or depression. No insomnia. Nursing notes and vitals signs are reviewed. Const: Vital Signs, click to edit/add: Vital Signs - 24 hr 11/08/22 10:57 11/08/22 11:00 11/08/22 11:00 Temperature 98.8 F Pulse Rate Pulse Rate [Left P ulse Oximeter] 144 H 144 H Respiratory Rate 20 22 Blood Pressure Blood Pressure [Ri ght Upper Arm] 114/79 120/74 Pulse Oximetry 96 90 83 L Oxygen Delivery Me thod Room Air Nasal Cannula Room Air Oxygen Flow Rate 3 11/08/22 11:33 11/08/22 11:34 11/08/22 11:46 Temperature Pulse Rate 144 H 144 H 146 H Pulse Rate [Left P ulse Oximeter] Respiratory Rate Blood Pressure 97/75 101/66 Blood Pressure [Ri ght Upper Arm] Pulse Oximetry 90 91 86 L Oxygen Delivery Me thod Oxygen Flow Rate 11/08/22 11:47 11/08/22 11:55 11/08/22 12:00 Temperature Pulse Rate 144 H 145 H 144 H Pulse Rate [Left P ulse Oximeter] Respiratory Rate Blood Pressure 109/69 Blood Pressure [Ri ght Upper Arm] Pulse Oximetry 91 91 91 Oxygen Delivery Me thod Oxygen Flow Rate 11/08/22 12:01 11/08/22 12:02 11/08/22 12:30 Temperature Pulse Rate 144 H 143 H 143 H Pulse Rate [Left P ulse Oximeter] Respiratory Rate Blood Pressure 106/80 Blood Pressure [Ri ght Upper Arm] Pulse Oximetry 91 91 92 Oxygen Delivery Me thod Oxygen Flow Rate 11/08/22 12:31 11/08/22 12:32 11/08/22 13:00 Temperature Pulse Rate 143 H 143 H 143 H Pulse Rate [Left P ulse Oximeter] Respiratory Rate Blood Pressure 105/65 Blood Pressure [Ri ght Upper Arm] Pulse Oximetry 91 91 93 Oxygen Delivery Me thod Oxygen Flow Rate 11/08/22 13:01 11/08/22 13:02 11/08/22 13:30 Temperature Pulse Rate 143 H 142 H 142 H Pulse Rate [Left P ulse Oximeter] Respiratory Rate Blood Pressure 97/65 Blood Pressure [Ri ght Upper Arm] Pulse Oximetry 93 94 93 Oxygen Delivery Me thod Oxygen Flow Rate 11/08/22 13:31 11/08/22 13:32 11/08/22 14:00 Temperature Pulse Rate 142 H 143 H 142 H Pulse Rate [Left P ulse Oximeter] Respiratory Rate Blood Pressure 96/67 Blood Pressure [Ri ght Upper Arm] Pulse Oximetry 93 95 90 Oxygen Delivery Me thod Oxygen Flow Rate 11/08/22 14:01 Temperature Pulse Rate 143 H Pulse Rate [Left P ulse Oximeter] Respiratory Rate Blood Pressure 96/69 Blood Pressure [Ri ght Upper Arm] Pulse Oximetry 90 Oxygen Delivery Me thod Oxygen Flow Rate Course Vital Signs Vital signs: Initial Vital Signs Temperature 98.8 F 11/08/22 10:57 Temperature Source Temporal Artery Scan 11/08/22 10:57 Pulse Rate 144 H 11/08/22 10:57 Respiratory Rate 20 11/08/22 10:57 Blood Pressure 114/79 11/08/22 10:57 Blood Pressure Mean 90 11/08/22 10:57 Blood Pressure Position Sitting 11/08/22 10:57 Pulse Oximetry 96 11/08/22 10:57 Oxygen Delivery Method Room Air 11/08/22 10:57 Vital Signs Temperature 98.8 F 11/08/22 10:57 Pulse Rate 144 H 11/08/22 10:57 Respiratory Rate 20 11/08/22 10:57 Blood Pressure 114/79 11/08/22 10:57 Pulse Oximetry 96 11/08/22 10:57 Oxygen Delivery Method Room Air 11/08/22 10:57 Temperature 98.8 F 11/08/22 10:57 Pulse Rate 143 H 11/08/22 14:01 Respiratory Rate 22 11/08/22 11:00 Blood Pressure 96/69 11/08/22 14:01 Pulse Oximetry 90 11/08/22 14:01 Oxygen Delivery Method Room Air 11/08/22 11:00 Oxygen Flow Rate 3 11/08/22 11:00 MDM - Arrhythmia/Palpitations MDM Narrative Medical decision making narrative: This patient comes in with atrial flutter and rapid ventricular response. His heart rate is at 144 beats per minute. He denies having any symptoms related to his heart rate and rhythm. He states that he did not take his medicines this morning which include atenolol 25 mg. An IV was established where he received 20 mg of diltiazem along side of 500 mL of normal saline. He did have some drop in his blood pressure but is heart rate continued at 144 beats per minute. He was then given his atenolol tablet. This was 25 mg. This did not significantly reduce his heart rate either. The patient is unsure when his symptoms began so he is not a good candidate for cardioversion. I did give him a tablet of Eliquis 10 mg. He typically takes baby aspirin and Plavix. I spoke with the hospitalist control panel operator, Dr. Kendrick, who stated that he should come into the hospital and agrees to admit him. Actually Dr. Turcios is the admitting physician. Lab results returned with reassuring findings. His troponin is in normal range and his magnesium also is normal. He does have a slight anemia. Lab Data Labs: Lab Results 11/08/22 Range/Units 11:15 WBC 7.64 (4.50-11.00) K/uL RBC 3.42 L (4.30-5.90) m/uL Hgb 11.2 L (13.5-17.5) gm/dL Hct 35.0 L (37.0-53.0) % MCV 102 H (80-100) fL MCH 33 (26-34) pg MCHC 32 (32-36) gm/dL RDW Coeff of Alejandra 15.9 H (11.5-15.5) % Plt Count 148 (140-440) K/uL Neut % (Auto) 59.8 (42.0-72.0) % Lymph % (Auto) 16.9 L (20-44) % [place] % (Auto) 16.8 H (0.0-11.0) % Eos % (Auto) 1.4 (0.0-7.0) % Baso % (Auto) 1.6 (0.0-3.0) % Neut # (Auto) 4.57 (1.7-7.0) K/uL Lymph # (Auto) 1.30 (0.90-2.90) K/uL [place] # (Auto) 1.30 H (0.00-0.90) K/UL Eos # (Auto) 0.11 (0.00-0.50) K/uL Baso # (Auto) 0.12 (0.00-0.30) K/uL Abs Immat Gran (auto) 0.27 (0.00-0.30) K/uL Imm/Tot Granulo (auto) 3.5 % Diff Slide Review Acceptable Review (Acceptable) Sodium 138 (135-149) mmol/L Potassium 4.0 (3.6-5.1) mmol/L Chloride 103 (96-114) mmol/L Carbon Dioxide 29 (20-32) mmol/L BUN 17 (7-30) mg/dL Creatinine 1.1 (0.5-1.5) mg/dL Estimated Creat Clear 66.42 Estimated GFR 70 ml/min Glucose 123 H (60-115) mg/dL Calcium 8.7 (8.4-10.6) mg/dL Magnesium 1.6 (1.5-2.6) mg/dL POC Troponin I 0.01 (0.01-0.04) ng/ml ECG Data Attestation: I personally reviewed and interpreted this ECG as follows: Interpretation: Atrial flutter with 2-1 av conduction. Rate is 144 beats per minute. Incomplete left bundle branch block. Discharge Plan Discharge Clinical Impression: Paroxysmal atrial fibrillation with rapid ventricular response Patient Disposition: Admitted As Inpatient Condition: Unchanged Prescriptions: No Action atorvastatin 40 mg tablet 40 mg PO HS Patient Comments: TAKE 1 TABLET BY MOUTH EVERY DAY AT BEDTIME furosemide 20 mg tablet 20 mg PO BID@,16 Patient Comments: TAKE 1 TABLET BY MOUTH TWICE A DAY albuterol sulfate 90 mcg/actuation HFA aerosol inhaler 2 puff INHALATION QID PRN (Reason: shortness of breath or wheezing) Patient Comments: INHALE 2 PUFFS 4 TIMES DAILY IF NEEDED FOR SHORTNESS OF BREATH 1ST CHOICE OR WHEEZING 2ND CHOICE potassium chloride 20 mEq tablet extended release 20 meq PO BIDWM Patient Comments: TAKE 1 TABLET BY MOUTH TWICE A DAY WITH MEALS tramadol 50 mg tablet 50 mg PO Q12H PRN (Reason: pain) Patient Comments: takes prior to dressing change Trelegy Ellipta 100-62.5-25 mcg blister with device 1 inh INHALATION DAILY aspirin 81 mg tablet,chewable 81 mg PO DAILY omega 8-uko-unp-fish oil [Fish Oil] 1,000 mg (120 mg-180 mg) capsule 1 cap PO DAILY acetaminophen 500 mg capsule 500 - 1,000 mg PO Q6H PRN atenolol 25 mg tablet 25 mg PO BID Qty: 60 2RF Follow Up/Referrals: Marcio Gonzalez MD [Primary Care Provider] -
[2022-11-08 11:43] LABS: Basophils Absolute Auto 0.12 K/uL (0.00-0.30); Basophils Percent Auto 1.6 % (0.0-3.0); Eosinophils Absolute Auto 0.11 K/uL (0.00-0.50); Eosinophils Percent Auto 1.4 % (0.0-7.0); Hemoglobin* 11.2 gm/dL (13.5-17.5); Immature Granulocytes Abs Auto 0.27 K/uL (0.00-0.30); Immature Granulocytes Pct Auto 3.5 %; Lymphocytes Percent Auto 16.9 % (20-44); Mean Corpuscular HGB Conc 32 gm/dL (32-36); Mean Corpuscular Hemoglobin 33 pg (26-34); Mean Corpuscular Volume 102 fL (80-100); Monocytes Percent Auto 16.8 % (0.0-11.0); Neutrophils Absolute Auto 4.57 K/uL (1.7-7.0); Neutrophils Percent Auto 59.8 % (42.0-72.0); Platelet Count* 148 K/uL (140-440); RDW Coefficient of Variation % 15.9 % (11.5-15.5); Red Blood Count 3.42 m/uL (4.30-5.90); White Blood Count* 7.64 K/uL (4.50-11.00)
[2022-11-08] MEDS: dilTIAZem 5 MG/ML inj 20 MG IVP (11:46)
[2022-11-08] MEDS: 0.9 % SODIUM CHLORIDE 500 ML 500 ML IV (11:46)
[2022-11-08 11:53] LABS: Chloride* 103 mmol/L (96-114); Sodium* 138 mmol/L (135-149)
[2022-11-08 11:56] LABS: Creatinine* 1.1 mg/dL (0.5-1.5); Est. Creatinine Clearance* 66.42; Estimated Glomerular Filt Rate 70 ml/min
[2022-11-08 11:57] LABS: Blood Urea Nitrogen* 17 mg/dL (7-30); Calcium* 8.7 mg/dL (8.4-10.6); Carbon Dioxide* 29 mmol/L (20-32); Glucose* 123 mg/dL (60-115)
[2022-11-08 12:07] LABS: Troponin, Point-of-Care* 0.01 ng/ml (0.01-0.04)
[2022-11-08 12:12] LABS: Magnesium* 1.6 mg/dL (1.5-2.6)
[2022-11-08 12:20] LABS: Slide Review Acceptable Review (Acceptable); Slide Review Reflex Yes
[2022-11-08] MEDS: TRAMADOL HCL 50 MG TABLET PO ×2 (12:29→22:41)
[2022-11-08] MEDS: APIXABAN 5 MG TABLET 10 MG PO (12:34)
[2022-11-08] MEDS: atenoloL 25 MG TABLET PO ×2 (12:34→21:03)
--- NOTE | 2022-11-08 12:35 | ED.NURSE ---
pt c/o chronic back pain. can't lay in bed. sitting on edge of bed. recliner brought into room. pt resting in that, tramadol given.
--- NOTE | 2022-11-08 14:54 | ED.NURSE ---
dr. bledsoe in seeing pt
--- NOTE | 2022-11-08 15:04 | ED.NURSE ---
report given to zulema PAYNE, pt will transfer to CCU1 when dr. bledsoe done seeing pt.
[2022-11-08] MEDS: dilTIAZem 5 MG/ML inj 10 MG IVP (16:25)
[2022-11-08] MEDS: DIGOXIN 250 MCG TABLET PO (16:26)
[2022-11-08] MEDS: FUROSEMIDE 20 MG TABLET PO (16:26)
[2022-11-08] MEDS: SODIUM CHLORIDE 0.9 % (FLUSH) 10 ML SYRINGE 5 ML IVF ×4 (16:26→22:35)
[2022-11-08] MEDS: dilTIAZem HCL 125 MG in 0.9 % SODIUM CHLORIDE 100 ml 100 ML IVPB (17:16)
--- NOTE | 2022-11-08 17:32 | PM.IMHP1 ---
Hospitalist- H&P: MADHURI History of Present Illness Time Seen by Provider: 15:00 Date Seen: 11/08/22 Chief complaint: COPD Narrative: Andrew Shields is a 76 year old man who was in his usual state of health this morning when he went to the clinic for a wellness appointment. He tells me he was running late for his clinic appointment so he rushed. He had his usual dyspnea with exertion in consequence of his being rushed and trying to hurry. Seemed to resolve as it normally does. No other associated symptoms. In the process of initiating their assessment in the clinic for his wellness exam they notice that his heart rate was in the 140s. He had no symptoms in association with this. They performed a rhythm assessment and determined he was in a flutter with RVR. They performed an electrocardiogram and demonstrated atrial flutter with a 2-1 AV conduction again with rate of about 144. No ischemic changes. At this juncture they recommended he come to the hospital emergency department for further assessment stabilization and thus he presented to the [facility] Department. Had a very similar presentation 1 year ago. To his knowledge he has not had a recurrence of the atrial flutter with RVR since 1 year ago. He was totally unaware that he had a recurrence of this and denies any change in his awareness of his body, no change in symptoms, no change in physical limitations, except for when he was told today that he was in this heart rhythm with this rapid rate. Review of Systems Status of ROS: Reports: 10 or more systems reviewed and unremarkable except as noted in History and below Narrative: Lives with his in their home. Continues to smoke at least 1 pack of cigarettes per day. Longstanding smoker with advanced COPD. Continues to drink at least 2, if not more, servings of vodka daily. Denies alcohol withdrawal. states that he has never off of alcohol enough to know if he would have alcohol withdrawal. Not physically active. Spends most of his time in his home and does not leave the home much. While at home he spends much of his time in his recliner. Denies chest heaviness, pressure, tightness, or pain. Denies palpitations or chest fluttering. He has no idea how long he has been in this rhythm and rate. Has known history of paroxysmal atrial fibrillation. Tells me he has baseline dyspnea with exertion. Denies dyspnea at rest. Denies cough. On the 1 hand he denies paroxysmal nocturnal dyspnea or orthopnea. On the other hand he tells me he sleeps in a recliner chair in his home and has done so for years. Has chronic bilateral lower extremity edema. Denies fevers, rigors, diaphoresis. Denies any recent trauma or injury. No recent major travel. No recent illness. Denies diarrhea or constipation. Denies dysuria, urgency, frequency, hematuria. Denies blood loss of any sort. No focal motor neurologic deficits. [facility] Medical History (Updated 11/08/22 @ 18:21 by Jose Turcios MD) Alcohol use disorder ?F10.90 - Alcohol use, unspecified, uncomplicated (ICD-10) Aneurysm of right internal iliac artery ?I72.3 - Aneurysm of iliac artery (ICD-10) Recurrent major depressive disorder ?F33.9 - Major depressive disorder, recurrent, unspecified (ICD-10) Hepatic steatosis ?K76.0 - Fatty (change of) liver, not elsewhere classified (ICD-10) Chronic left-sided low back pain ?M54.50 - Low back pain, unspecified (ICD-10) ?G89.29 - Other chronic pain (ICD-10) Erectile dysfunction ?N52.9 - Male erectile dysfunction, unspecified (ICD-10) Degenerative joint disease (DJD) of lumbar spine ?M47.816 - Spondylosis without myelopathy or radiculopathy, lumbar region (ICD-10) Adenomatous colon polyp ?D12.6 - Benign neoplasm of colon, unspecified (ICD-10) Chronic heart failure with preserved ejection fraction (HFpEF) ?I50.32 - Chronic diastolic (congestive) heart failure (ICD-10) Tobacco abuse disorder ?Z72.0 - Tobacco use (ICD-10) Paroxysmal atrial fibrillation with rapid ventricular response ?I48.0 - Paroxysmal atrial fibrillation (ICD-10) Venous stasis ulcer ?I83.009 - Varicose veins of unspecified lower extremity with ulcer of unspecified site (ICD-10) ?L97.909 - Non-pressure chronic ulcer of unspecified part of unspecified lower leg with unspecified severity (ICD-10) Venous stasis dermatitis of both lower extremities ?I87.2 - Venous insufficiency (chronic) (peripheral) (ICD-10) Obesity ?E66.9 - Obesity, unspecified (ICD-10) Lung nodule ?R91.1 - Solitary pulmonary nodule (ICD-10) Chest pain ?R07.9 - Chest pain, unspecified (ICD-10) Cellulitis ?L03.90 - Cellulitis, unspecified (ICD-10) CVA (cerebral vascular accident) ?I63.9 - Cerebral infarction, unspecified (ICD-10) Obstructive sleep apnea ?G47.33 - Obstructive sleep apnea (adult) (pediatric) (ICD-10) Chronic respiratory failure ?J96.10 - Chronic respiratory failure, unspecified whether with hypoxia or hypercapnia (ICD-10) Pneumonia ?J18.9 - Pneumonia, unspecified organism (ICD-10) COPD (chronic obstructive pulmonary disease) ?J44.9 - Chronic obstructive pulmonary disease, unspecified (ICD-10) Surgical History (Updated 11/08/22 @ 18:01 by Jose Turcios MD) Status post left knee replacement ?Z96.652 - Presence of left artificial knee joint (ICD-10) Status post right knee replacement ?Z96.651 - Presence of right artificial knee joint (ICD-10) History of colonoscopy ?Z98.890 - Other specified postprocedural states (ICD-10) Family History (Updated 11/08/22 @ 18:08 by Jose Turcios MD) Sister Breast cancer Brain cancer Father Skin cancer Brother Heart disease Mother Heart disease Other Diabetes Social History (Updated 11/08/22 @ 18:06 by Jose Turcios MD) Narrative: . Lives with . Continues to smoke a minimum 1 pack per day of cigarettes. At least a 60 pack-year history of smoking. Drinks a minimal of 2-3 servings of vodka daily. Denies alcohol withdrawal symptoms. Denies any other street or recreational drugs. Does not want to be kept alive as a vegetable. On 11/08/2022 he tells me he wants a DNR DNI resuscitation status, which is and son support. Primary care physician is Dr. Marcio Gonzalez. What is your current living situation?: I presently have a place to live Problems where you live: no known problems Problems where you live details: N/A In the past 12 months, utilities in danger of being shut off: no In the past 12 mos, have been you worried that your food would run out before you had money to buy more?: never true In the past 12 mos, the food you bought just didn't last and you didn't have money to buy more?: never true Highest level of school completed/degree received: 12th grade, no diploma Smoking Status: Current every day smoker What tobacco products do you use: cigarettes Smoking packs per day: 1 Smoking cigarettes per day: 20.0 Years smoked: 60 Smoking pack-years: 60.00 Do you use any of these nicotine containing products: None Second hand tobacco smoke exposure: No How often do you have a drink containing alcohol: 4 or more times a week Alcohol type: hard liquor Alcohol type details: 2-3 drinks/day How many standard drinks containing alcohol do you have on a typical day: 3 or 4 How often do you have six or more drinks on one occasion: Daily or almost daily AUDIT-C Alcohol total score: 9 Non-prescribed substance use: denies use Non-prescribed substance use details: pot occassionally Caffeine: Yes How often does anyone, including family, friends and others, physically hurt you: never How often does anyone, including family, friends and others, insult or talk down to you: never How often does anyone, including family, friends and others, threaten you with harm: never How often does anyone, including family, friends and others, scream or curse at you: never Gender Identity: male service: Yes Meds Home Medications and Allergies Home Medications Medication Instructions Recorded Confirmed Type acetaminophen 500 mg capsule 500 - 1,000 mg PO Q6H PRN 10/12/21 11/08/22 History albuterol sulfate 90 mcg/actuation 2 puff inhalation QID PRN 10/12/21 11/08/22 History aerosol inhaler shortness of breath or wheezing aspirin 81 mg chewable tablet 81 mg PO DAILY 10/12/21 11/08/22 History atorvastatin 40 mg tablet 40 mg PO HS 10/12/21 11/08/22 History fluticasone fur. 100 mcg-umeclid 1 inh inhalation DAILY 10/12/21 11/08/22 History 62.5 mcg-vilant 25 mcg inhalat.powder (Trelegy Ellipta) furosemide 20 mg tablet 20 mg PO BID@09,16 07/06/22 08/02/23 History omega 0-ixn-jft-fish oil 1,000 mg 1 cap PO DAILY 10/12/21 11/08/22 History (120 mg-180 mg) capsule (Fish Oil) potassium chloride 20 mEq 20 meq PO BIDWM 10/12/21 11/08/22 History tablet,extended release tramadol 50 mg tablet 50 mg PO Q12H PRN pain 10/12/21 11/08/22 History clopidogrel 75 mg tablet 75 mg PO DAILY 11/08/22 11/08/22 History Allergies Allergy/AdvReac Type Severity Reaction Status Date / Time codeine Allergy Mild Verified 10/12/21 11:39 Penicillins Allergy Rash Verified 10/12/21 11:39 dust Allergy Mild Uncoded 10/12/21 11:39 Exam Narrative: Exam Narrative: I examine him in the emergency department as he is laying in a semi recumbent position on examining table. Appears comfortable at rest in no acute distress. Pasty colored skin. No jaundice, cyanosis. Alert and oriented to self, place, time, and seemingly to situation as well. Does not seem all that concerned about his a flutter with RVR but indicates he is willing to remain in the hospital for now. Minimally hard of hearing. Vision grossly normal. Gruff disposition, nevertheless his friendly, articulate, cooperative. Tachypnea at rest with respirations of 20 to 24. Has oxygen on at 2 liters/minute maintaining saturations 88-92% at rest. Tympanic membranes are normal. Midline nasal septum. Mallampati class 4 airway. No icterus or conjunctival injection. Pupils equally round and reactive to light and accommodation. Extraocular muscles are intact. Full neck. Midline trachea. Neck supple. Sitting upright he has no JVD or inducible hepatojugular reflux. No carotid bruits. No head and neck lymphadenopathy. Scattered rhonchi with minimal expiratory wheezes on auscultation of his lungs. Prolonged expiratory phase. No rales. Does not take deep breaths. No CVA tenderness. Heart tones tachycardic, regular rhythm, without obvious murmur, gallop, or rub. PMI is not laterally displaced. Abdomen is obese with active bowel sounds, soft, nontender. Pitting edema bilateral lower extremities. Has dressing on his legs it due to venous stasis ulcer for which he is being assessed and treated in the [facility]. No focal motor neurologic deficits. Const: Vital Signs, click to edit/add: Vital Signs - 24 hr 11/08/22 10:57 11/08/22 11:00 11/08/22 11:00 Temperature 98.8 F Pulse Rate Pulse Rate [Left A pical] Pulse Rate [Left P ulse Oximeter] 144 H 144 H Respiratory Rate 20 22 Blood Pressure Blood Pressure [Le ft Arm] Blood Pressure [Ri ght Upper Arm] 114/79 120/74 Pulse Oximetry 96 90 83 L Oxygen Delivery Me thod Room Air Nasal Cannula Room Air Oxygen Flow Rate 3 11/08/22 11:33 11/08/22 11:34 11/08/22 11:46 Temperature Pulse Rate 144 H 144 H 146 H Pulse Rate [Left A pical] Pulse Rate [Left P ulse Oximeter] Respiratory Rate Blood Pressure 97/75 101/66 Blood Pressure [Le ft Arm] Blood Pressure [Ri ght Upper Arm] Pulse Oximetry 90 91 86 L Oxygen Delivery Me thod Oxygen Flow Rate 11/08/22 11:47 11/08/22 11:55 11/08/22 12:00 Temperature Pulse Rate 144 H 145 H 144 H Pulse Rate [Left A pical] Pulse Rate [Left P ulse Oximeter] Respiratory Rate Blood Pressure 109/69 Blood Pressure [Le ft Arm] Blood Pressure [Ri ght Upper Arm] Pulse Oximetry 91 91 91 Oxygen Delivery Me thod Oxygen Flow Rate 11/08/22 12:01 11/08/22 12:02 11/08/22 12:30 Temperature Pulse Rate 144 H 143 H 143 H Pulse Rate [Left A pical] Pulse Rate [Left P ulse Oximeter] Respiratory Rate Blood Pressure 106/80 Blood Pressure [Le ft Arm] Blood Pressure [Ri ght Upper Arm] Pulse Oximetry 91 91 92 Oxygen Delivery Me thod Oxygen Flow Rate 11/08/22 12:31 11/08/22 12:32 11/08/22 13:00 Temperature Pulse Rate 143 H 143 H 143 H Pulse Rate [Left A pical] Pulse Rate [Left P ulse Oximeter] Respiratory Rate Blood Pressure 105/65 Blood Pressure [Le ft Arm] Blood Pressure [Ri ght Upper Arm] Pulse Oximetry 91 91 93 Oxygen Delivery Me thod Oxygen Flow Rate 11/08/22 13:01 11/08/22 13:02 11/08/22 13:30 Temperature Pulse Rate 143 H 142 H 142 H Pulse Rate [Left A pical] Pulse Rate [Left P ulse Oximeter] Respiratory Rate Blood Pressure 97/65 Blood Pressure [Le ft Arm] Blood Pressure [Ri ght Upper Arm] Pulse Oximetry 93 94 93 Oxygen Delivery Me thod Oxygen Flow Rate 11/08/22 13:31 11/08/22 13:32 11/08/22 14:00 Temperature Pulse Rate 142 H 143 H 142 H Pulse Rate [Left A pical] Pulse Rate [Left P ulse Oximeter] Respiratory Rate Blood Pressure 96/67 Blood Pressure [Le ft Arm] Blood Pressure [Ri ght Upper Arm] Pulse Oximetry 93 95 90 Oxygen Delivery Me thod Oxygen Flow Rate 11/08/22 14:01 11/08/22 14:02 11/08/22 14:30 Temperature Pulse Rate 143 H 142 H 143 H Pulse Rate [Left A pical] Pulse Rate [Left P ulse Oximeter] Respiratory Rate Blood Pressure 96/69 Blood Pressure [Le ft Arm] Blood Pressure [Ri ght Upper Arm] Pulse Oximetry 90 90 89 Oxygen Delivery Me thod Oxygen Flow Rate 11/08/22 14:31 11/08/22 16:24 11/08/22 16:24 Temperature 98.2 F Pulse Rate 143 H Pulse Rate [Left A pical] 143 H 143 H Pulse Rate [Left P ulse Oximeter] Respiratory Rate 20 Blood Pressure 96/67 Blood Pressure [Le ft Arm] 95/66 94/69 Blood Pressure [Ri ght Upper Arm] Pulse Oximetry 90 91 Oxygen Delivery Me thod Nasal Cannula Oxygen Flow Rate 3 11/08/22 16:26 Temperature Pulse Rate 143 H Pulse Rate [Left A pical] Pulse Rate [Left P ulse Oximeter] Respiratory Rate Blood Pressure Blood Pressure [Le ft Arm] Blood Pressure [Ri ght Upper Arm] Pulse Oximetry Oxygen Delivery Me thod Oxygen Flow Rate Hospitalist - H&P: Result Labs Labs: Short CBC 11/08/22 Range/Units 11:15 WBC 7.64 (4.50-11.00) K/uL Hgb 11.2 L (13.5-17.5) gm/dL Hct 35.0 L (37.0-53.0) % Plt Count 148 (140-440) K/uL BMP 11/08/22 11:15 Sodium 138 Potassium 4.0 Chloride 103 Carbon Dioxide 29 BUN 17 Creatinine 1.1 Glucose 123 H Calcium 8.7 ECG Attestation: I personally reviewed and interpreted this ECG as follows: ECG interpretation date: 11/08/22 ECG interpretation time: 13:00 Prior ECG tracings: available for review Interpretation: Atrial flutter with 2-[address] segment depression inferiorly. Assessment and Plan Assessment and plan (1) Paroxysmal atrial fibrillation with rapid ventricular response: Problem comment: Hospitalized for the same in October of 2021. Status: Acute (2) Atrial fibrillation and flutter: Problem comment: Last hospitalized for AFib and a flutter with RVR in October of 2021. Status: Acute (3) Atrial flutter with rapid ventricular response: Problem comment: To November 2022 with 2:1 AV conduction Status: Acute (4) Acute on chronic respiratory failure with hypoxemia: Status: Acute (5) Chronic respiratory failure: Problem comment: Hypoxic Status: Acute (6) COPD (chronic obstructive pulmonary disease): Problem comment: Advanced. Refuses quit smoking. Status: Acute (7) Obstructive sleep apnea: Problem comment: Uses CPAP at home. Status: Acute (8) Tobacco abuse disorder: Problem comment: Currently smokes a minimum of 1 pack per day. Pre contemplative about quitting. Greater than 60 pack-year history. Status: Acute (9) Alcohol use disorder: Problem comment: Drinks alcoholic beverages daily, minimal of 2 servings of vodka daily, not infrequently 3-4 servings per day. Status: Acute Plan 1. Admit to critical care. Initiate diltiazem IV drip and intermittent metoprolol IV to try to lower heart rate and maintain mean arterial pressure greater than 70 mmHg. Will also initiate scheduled digoxin, 250 mcg single dose today than 125 mcg daily thereafter. 2. Serial troponin I's. Telemetry. Serial ECGs. Recheck echocardiogram, last checked 1 year ago. I am concerned that he may be developing a tachycardia induced cardiomyopathy given his paucity of symptoms with this presentation, we have no idea when this rate and rhythm was started. Clearly not a candidate for elective cardioversion at this juncture. 3. Initiate apixaban 5 mg p.o. b.i.d.. Consider cardioversion only after he has been appropriately anticoagulated for a minimum of 30 days. Consider additional cardiology consultation including for possible ablation therapy. 4. Oxygen supplementation. Continue with current treatments for COPD. Consider additional treatments if warranted. 5. Nicotine supplementation. Patient agreeable to start patch. 6. Will initiate CIWA monitoring and lorazepam therapy as warranted. 7. Continue with other supportive efforts. 8. Answered patient's questions as well as his 's and son's questions to their satisfaction. 9. They are all agreeable with above stated plans and recommendations.
[2022-11-08] MEDS: POTASSIUM CHLORIDE 10 MEQ CAPSULE ER 20 MEQ PO (18:12)
[2022-11-08 19:35] LABS: Troponin I* 0.02 ng/mL (0.01-0.04)
[2022-11-08] MEDS: NICOTINE 21 MG PATCH 1 PATCH TRANSDERMA (19:51)
[2022-11-08] MEDS: MAGNESIUM IV 4 GM/100 ML PIGGYBACK IVPB (20:44)
[2022-11-08] MEDS: ATORVASTATIN CALCIUM 40 MG TABLET PO (21:02)
[2022-11-08] MEDS: THIAMINE 100 MG TABLET PO (21:02)
[2022-11-08] MEDS: METOPROLOL TARTRATE 1 MG/ML inj 2.5 MG IVP ×2 (22:11→22:35)
--- NOTE | 2022-11-08 23:24 | PC.NURSE ---
Addendum entered by Isa Galaviz RN 11/08/22 23:37: Diltiazem drip titrated up to 15 mg/hr, see eMAR and frequent vital signs. Original Note: End of Shift: Patient admitted to U1. Heart rate 135-145. IV push Diltiazem given and Diltiazem drip started. Heart rate continues to be in the 130s-140s, PRN Metoprolol given, MD updated. 1-2L NC to keep O2 sats greater than 87%. Patient up to bathroom with 1 assist and walker. Tolerating regular diet with no nausea. CIWA 4. Dressing to chronic right leg wound C/D/I, per patient dressing is due to be changed tomorrow. PRN Ultram x1 for chronic pain.
[2022-11-09] VITALS (27 sets, daily range): BP systolic 93–115; BP diastolic 57–78; PULSE 71–144; RESP 18–22; TEMP 36.4–36.9; O2SAT 86–95; BMI 39.8
[2022-11-09] MEDS: dilTIAZem HCL 125 MG in 0.9 % SODIUM CHLORIDE 100 ml 100 ML 15 MG IVPB (02:45)
[2022-11-09] MEDS: METOPROLOL TARTRATE 1 MG/ML inj 5 MG IVP (04:16)
--- NOTE | 2022-11-09 05:51 | P.DS_ITS ---
DS: Providers Provider Date of admission: 11/08/22 15:31 Primary care physician: Marcio Gonzalez MD Admitting Clinician: Jose Turcios MD Consults: 11/08/22 15:36 Consult to Nutrition [CONS] Routine Comment: Reason for consult:: Miscellaneous Comment: alcohol use disorder... Consult to Physical Therapy [CONS] Routine Comment: Reason(s) for PT Consult:: Evaluate and Treat Any Restrictions?:: No Restrictions Consult to Respiratory Therapy [CONS] Routine Comment: Reason(s) for RT Consult:: Consult Comment: severe COPD, ? smoking cessation, ? pulm rehab 11/08/22 15:38 Consult to Occupational Therapy [CONS] Routine Comment: Reason(s) for OT Consult:: Evaluate and Treat Any Restrictions?:: No Restrictions Attending Physician on discharge: Jose Turcios MD DS: Summary Time Spent with Patient Time attestation: Total time spent providing and/or coordinating discharge services: Exam Const: Vital Signs, click to edit/add: Vital Signs - 24 hr 11/08/22 10:57 11/08/22 11:00 11/08/22 11:00 Temperature 98.8 F Pulse Rate Pulse Rate [Left A pical] Pulse Rate [Left P ulse Oximeter] 144 H 144 H Respiratory Rate 20 22 Blood Pressure Blood Pressure [Le ft Arm] Blood Pressure [Ri ght Upper Arm] 114/79 120/74 Pulse Oximetry 96 90 83 L Oxygen Delivery Me thod Room Air Nasal Cannula Room Air Oxygen Flow Rate 3 11/08/22 11:33 11/08/22 11:34 11/08/22 11:46 Temperature Pulse Rate 144 H 144 H 146 H Pulse Rate [Left A pical] Pulse Rate [Left P ulse Oximeter] Respiratory Rate Blood Pressure 97/75 101/66 Blood Pressure [Le ft Arm] Blood Pressure [Ri ght Upper Arm] Pulse Oximetry 90 91 86 L Oxygen Delivery Me thod Oxygen Flow Rate 11/08/22 11:47 11/08/22 11:55 11/08/22 12:00 Temperature Pulse Rate 144 H 145 H 144 H Pulse Rate [Left A pical] Pulse Rate [Left P ulse Oximeter] Respiratory Rate Blood Pressure 109/69 Blood Pressure [Le ft Arm] Blood Pressure [Ri ght Upper Arm] Pulse Oximetry 91 91 91 Oxygen Delivery Me thod Oxygen Flow Rate 11/08/22 12:01 11/08/22 12:02 11/08/22 12:30 Temperature Pulse Rate 144 H 143 H 143 H Pulse Rate [Left A pical] Pulse Rate [Left P ulse Oximeter] Respiratory Rate Blood Pressure 106/80 Blood Pressure [Le ft Arm] Blood Pressure [Ri ght Upper Arm] Pulse Oximetry 91 91 92 Oxygen Delivery Me thod Oxygen Flow Rate 11/08/22 12:31 11/08/22 12:32 11/08/22 13:00 Temperature Pulse Rate 143 H 143 H 143 H Pulse Rate [Left A pical] Pulse Rate [Left P ulse Oximeter] Respiratory Rate Blood Pressure 105/65 Blood Pressure [Le ft Arm] Blood Pressure [Ri ght Upper Arm] Pulse Oximetry 91 91 93 Oxygen Delivery Me thod Oxygen Flow Rate 11/08/22 13:01 11/08/22 13:02 11/08/22 13:30 Temperature Pulse Rate 143 H 142 H 142 H Pulse Rate [Left A pical] Pulse Rate [Left P ulse Oximeter] Respiratory Rate Blood Pressure 97/65 Blood Pressure [Le ft Arm] Blood Pressure [Ri ght Upper Arm] Pulse Oximetry 93 94 93 Oxygen Delivery Me thod Oxygen Flow Rate 11/08/22 13:31 11/08/22 13:32 11/08/22 14:00 Temperature Pulse Rate 142 H 143 H 142 H Pulse Rate [Left A pical] Pulse Rate [Left P ulse Oximeter] Respiratory Rate Blood Pressure 96/67 Blood Pressure [Le ft Arm] Blood Pressure [Ri ght Upper Arm] Pulse Oximetry 93 95 90 Oxygen Delivery Me thod Oxygen Flow Rate 11/08/22 14:01 11/08/22 14:02 11/08/22 14:30 Temperature Pulse Rate 143 H 142 H 143 H Pulse Rate [Left A pical] Pulse Rate [Left P ulse Oximeter] Respiratory Rate Blood Pressure 96/69 Blood Pressure [Le ft Arm] Blood Pressure [Ri ght Upper Arm] Pulse Oximetry 90 90 89 Oxygen Delivery Me thod Oxygen Flow Rate 11/08/22 14:31 11/08/22 15:31 11/08/22 16:24 Temperature Pulse Rate 143 H 144 H Pulse Rate [Left A pical] 143 H Pulse Rate [Left P ulse Oximeter] Respiratory Rate Blood Pressure 96/67 Blood Pressure [Le ft Arm] 95/66 Blood Pressure [Ri ght Upper Arm] Pulse Oximetry 90 Oxygen Delivery Me thod Oxygen Flow Rate 11/08/22 16:24 11/08/22 16:24 11/08/22 16:26 Temperature 98.2 F Pulse Rate 143 H Pulse Rate [Left A pical] 143 H Pulse Rate [Left P ulse Oximeter] Respiratory Rate 20 20 Blood Pressure Blood Pressure [Le ft Arm] 94/69 Blood Pressure [Ri ght Upper Arm] Pulse Oximetry 91 91 Oxygen Delivery Me thod Nasal Cannula Nasal Cannula Oxygen Flow Rate 3 2 11/08/22 17:10 11/08/22 17:20 11/08/22 17:30 Temperature Pulse Rate Pulse Rate [Left A pical] 144 H 144 H 141 H Pulse Rate [Left P ulse Oximeter] Respiratory Rate Blood Pressure Blood Pressure [Le ft Arm] 105/66 91/70 100/68 Blood Pressure [Ri ght Upper Arm] Pulse Oximetry Oxygen Delivery Me thod Oxygen Flow Rate 11/08/22 17:40 11/08/22 17:50 11/08/22 18:00 Temperature Pulse Rate Pulse Rate [Left A pical] 144 H 144 H 144 H Pulse Rate [Left P ulse Oximeter] Respiratory Rate Blood Pressure Blood Pressure [Le ft Arm] 100/72 104/66 103/77 Blood Pressure [Ri ght Upper Arm] Pulse Oximetry Oxygen Delivery Me thod Oxygen Flow Rate 11/08/22 18:10 11/08/22 18:20 11/08/22 18:30 Temperature Pulse Rate Pulse Rate [Left A pical] 144 H 140 H 140 H Pulse Rate [Left P ulse Oximeter] Respiratory Rate Blood Pressure Blood Pressure [Le ft Arm] 109/79 114/57 L 100/78 Blood Pressure [Ri ght Upper Arm] Pulse Oximetry Oxygen Delivery Me thod Oxygen Flow Rate 11/08/22 18:40 11/08/22 19:00 11/08/22 19:00 Temperature 98.5 F 98.5 F Pulse Rate Pulse Rate [Left A pical] 138 H 146 H 146 H Pulse Rate [Left P ulse Oximeter] Respiratory Rate 20 20 Blood Pressure Blood Pressure [Le ft Arm] 93/67 84/67 L 84/76 L Blood Pressure [Ri ght Upper Arm] Pulse Oximetry 92 92 Oxygen Delivery Me thod Nasal Cannula Nasal Cannula Oxygen Flow Rate 2 1 11/08/22 19:30 11/08/22 20:00 11/08/22 20:15 Temperature Pulse Rate Pulse Rate [Left A pical] 144 H 144 H 144 H Pulse Rate [Left P ulse Oximeter] Respiratory Rate 20 Blood Pressure Blood Pressure [Le ft Arm] 101/68 120/74 112/76 Blood Pressure [Ri ght Upper Arm] Pulse Oximetry 89 Oxygen Delivery Me thod Nasal Cannula Oxygen Flow Rate 1 11/08/22 20:30 11/08/22 20:45 11/08/22 21:00 Temperature Pulse Rate Pulse Rate [Left A pical] 144 H 139 H 141 H Pulse Rate [Left P ulse Oximeter] Respiratory Rate 20 Blood Pressure Blood Pressure [Le ft Arm] 101/81 109/78 94/76 Blood Pressure [Ri ght Upper Arm] Pulse Oximetry 89 Oxygen Delivery Me thod Nasal Cannula Oxygen Flow Rate 1 11/08/22 21:00 11/08/22 21:15 11/08/22 21:28 Temperature Pulse Rate Pulse Rate [Left A pical] 141 H 144 H 144 H Pulse Rate [Left P ulse Oximeter] Respiratory Rate Blood Pressure Blood Pressure [Le ft Arm] 94/76 108/61 108/61 Blood Pressure [Ri ght Upper Arm] Pulse Oximetry Oxygen Delivery Me thod Oxygen Flow Rate 11/08/22 21:45 11/08/22 22:00 11/08/22 22:15 Temperature Pulse Rate Pulse Rate [Left A pical] 138 H 141 H 141 H Pulse Rate [Left P ulse Oximeter] Respiratory Rate 22 Blood Pressure Blood Pressure [Le ft Arm] 98/65 104/54 L 106/74 Blood Pressure [Ri ght Upper Arm] Pulse Oximetry 89 Oxygen Delivery Me thod Nasal Cannula Oxygen Flow Rate 2 11/08/22 22:30 11/08/22 22:45 11/08/22 23:31 Temperature Pulse Rate Pulse Rate [Left A pical] 141 H 141 H Pulse Rate [Left P ulse Oximeter] Respiratory Rate 18 Blood Pressure Blood Pressure [Le ft Arm] 113/65 109/71 Blood Pressure [Ri ght Upper Arm] Pulse Oximetry 87 L Oxygen Delivery Me thod CPAP Oxygen Flow Rate 3 11/08/22 23:32 11/09/22 00:00 11/09/22 00:58 Temperature 98.5 F Pulse Rate 71 Pulse Rate [Left A pical] 141 H 138 H Pulse Rate [Left P ulse Oximeter] Respiratory Rate 18 18 Blood Pressure Blood Pressure [Le ft Arm] 104/72 115/78 Blood Pressure [Ri ght Upper Arm] Pulse Oximetry 87 L 86 L Oxygen Delivery Me thod CPAP CPAP Oxygen Flow Rate 3 3 11/09/22 01:00 11/09/22 01:06 11/09/22 01:37 Temperature 98.5 F Pulse Rate Pulse Rate [Left A pical] 71 82 138 H Pulse Rate [Left P ulse Oximeter] Respiratory Rate 18 Blood Pressure Blood Pressure [Le ft Arm] 96/62 94/65 Blood Pressure [Ri ght Upper Arm] Pulse Oximetry 86 L Oxygen Delivery Me thod CPAP Oxygen Flow Rate 1 11/09/22 02:35 11/09/22 03:07 11/09/22 04:00 Temperature Pulse Rate Pulse Rate [Left A pical] 141 H 138 H 140 H Pulse Rate [Left P ulse Oximeter] Respiratory Rate Blood Pressure Blood Pressure [Le ft Arm] 97/67 94/66 95/66 Blood Pressure [Ri ght Upper Arm] Pulse Oximetry Oxygen Delivery Me thod Oxygen Flow Rate 11/09/22 05:19 11/09/22 05:20 11/09/22 05:20 Temperature 98.5 F Pulse Rate 138 H Pulse Rate [Left A pical] 138 H 138 H Pulse Rate [Left P ulse Oximeter] Respiratory Rate 18 Blood Pressure Blood Pressure [Le ft Arm] 97/67 97/67 Blood Pressure [Ri ght Upper Arm] Pulse Oximetry 86 L Oxygen Delivery Me thod CPAP Oxygen Flow Rate 1 DS: Data Data Completed and Pending Labs on day of discharge: Labs from last 24 hours 11/08/22 11/08/22 18:59 11:15 WBC 7.64 RBC 3.42 L Hgb 11.2 L Hct 35.0 L MCV 102 H MCH 33 MCHC 32 RDW Coeff of Alejandra 15.9 H Plt Count 148 Neut % (Auto) 59.8 Lymph % (Auto) 16.9 L [place] % (Auto) 16.8 H Eos % (Auto) 1.4 Baso % (Auto) 1.6 Neut # (Auto) 4.57 Lymph # (Auto) 1.30 [place] # (Auto) 1.30 H Eos # (Auto) 0.11 Baso # (Auto) 0.12 Abs Immat Gran (auto) 0.27 Imm/Tot Granulo (auto) 3.5 Diff Slide Review Acceptable Review Sodium 138 Potassium 4.0 Chloride 103 Carbon Dioxide 29 BUN 17 Creatinine 1.1 Estimated Creat Clear 66.42 Estimated GFR 70 Glucose 123 H Calcium 8.7 Magnesium 1.6 Troponin I 0.02 POC Troponin I 0.01 Discharge Plan Discharge Date of Admission: 11/08/22 15:31 Attending Physician on Admission: Jose Turcios Primary Care Provider: Marcio Gonzalez Condition: Unchanged Discharge Medications: No Action atorvastatin 40 mg tablet 40 mg PO HS Patient Comments: TAKE 1 TABLET BY MOUTH EVERY DAY AT BEDTIME furosemide 20 mg tablet 20 mg PO BID@,16 Patient Comments: TAKE 1 TABLET BY MOUTH TWICE A DAY albuterol sulfate 90 mcg/actuation HFA aerosol inhaler 2 puff INHALATION QID PRN (Reason: shortness of breath or wheezing) Patient Comments: INHALE 2 PUFFS 4 TIMES DAILY IF NEEDED FOR SHORTNESS OF BREATH 1ST CHOICE OR WHEEZING 2ND CHOICE potassium chloride 20 mEq tablet extended release 20 meq PO BIDWM Patient Comments: TAKE 1 TABLET BY MOUTH TWICE A DAY WITH MEALS tramadol 50 mg tablet 50 mg PO Q12H PRN (Reason: pain) Patient Comments: takes prior to dressing change Trelegy Ellipta 100-62.5-25 mcg blister with device 1 inh INHALATION DAILY aspirin 81 mg tablet,chewable 81 mg PO DAILY omega [id number] oil [Fish Oil] 1,000 mg (120 mg-180 mg) capsule 1 cap PO DAILY acetaminophen 500 mg capsule 500 - 1,000 mg PO Q6H PRN atenolol 25 mg tablet 25 mg PO BID Qty: 60 2RF clopidogrel 75 mg tablet 75 mg PO DAILY Follow Up Appointments: Marcio Gonzalez MD [Primary Care Provider] -
--- NOTE | 2022-11-09 06:28 | PC.NURSE ---
: Pt tele has been a flutter 138-142, it did come down to 70s variable rate for about 20 minutes after 0100, but has since been 138-142, diltiazem drip 15-20mg/hr with metoprolol q6h prn given, bp remains 9x/6x, pt asymptomatic, up to br with sba and cane, sob noted which he states is normal with his smoking, was on cpap 1lpm oxygen 86-88%, room air 80% initially but had tcdb up to 86-88%.
[2022-11-09 06:48] LABS: HCO3 VBG 30 mmol/L (21-28); Lactate* 1.5 mmol/L (0.5-1.9); PCO2 VBG 51 mmHG (40-50); PO2 VBG 25.4 mmHG (25-47); pH VBG 7.375 (7.32-7.43)
[2022-11-09 06:52] LABS: Hematocrit 33.6 % (37.0-53.0); Hemoglobin* 10.7 gm/dL (13.5-17.5); Mean Corpuscular HGB Conc 32 gm/dL (32-36); Mean Corpuscular Hemoglobin 33 pg (26-34); Mean Corpuscular Volume 104 fL (80-100); Platelet Count* 155 K/uL (140-440); Red Blood Count 3.24 m/uL (4.30-5.90); White Blood Count* 7.62 K/uL (4.50-11.00)
[2022-11-09] MEDS: DIGOXIN 250 MCG TABLET 500 MCG PO (06:56)
[2022-11-09] MEDS: METOPROLOL TARTRATE 50 MG TABLET PO ×2 (06:57→20:24)
[2022-11-09 06:58] LABS: Slide Review Reflex No
[2022-11-09 07:09] LABS: Chloride* 102 mmol/L (96-114)
[2022-11-09 07:10] LABS: Sodium* 137 mmol/L (135-149)
[2022-11-09 07:12] LABS: Est. Creatinine Clearance* 73.07; Estimated Glomerular Filt Rate 78 ml/min
[2022-11-09 07:13] LABS: Blood Urea Nitrogen* 16 mg/dL (7-30); Carbon Dioxide* 31 mmol/L (20-32)
[2022-11-09 07:14] LABS: Calcium* 8.5 mg/dL (8.4-10.6); Glucose* 121 mg/dL (60-115); Magnesium* 2.5 mg/dL (1.5-2.6); Phosphorus* 3.4 mg/dL (2.5-4.5)
[2022-11-09 07:16] LABS: C Reactive Protein* 3.3 mg/dL (0.5-1.0)
[2022-11-09 07:25] LABS: NT Pro B Type NatriureticPept* 2160 pg/mL; Troponin I* 0.02 ng/mL (0.01-0.04)
[2022-11-09] MEDS: APIXABAN 5 MG TABLET PO ×2 (08:42→20:24)
[2022-11-09] MEDS: TRAMADOL HCL 50 MG TABLET PO (08:42)
[2022-11-09] MEDS: FUROSEMIDE 20 MG TABLET PO ×2 (08:43→16:15)
[2022-11-09] MEDS: FOLIC ACID 1 MG TABLET PO (08:43)
[2022-11-09] MEDS: POTASSIUM CHLORIDE 10 MEQ CAPSULE ER 20 MEQ PO ×2 (08:43→18:37)
[2022-11-09] MEDS: SODIUM CHLORIDE 0.9 % (FLUSH) 10 ML SYRINGE 5 ML IVF ×2 (08:55→20:26)
[2022-11-09] MEDS: ALBUTEROL INHALER 2 PUFF IH (08:55)
--- NOTE | 2022-11-09 10:31 | PM.IMPN1 ---
Progress Note: A&P Assessment and plan (1) Atrial flutter with rapid ventricular response: Problem details: Rate control with metoprolol and digoxin. Second episode. With history of stroke start anticoagulation as well. Status: Acute (2) Acute on chronic respiratory failure with hypoxemia: Problem details: May have mild heart failure. Trial of diuretic. Treat COPD. Status: Acute (3) Alcohol use disorder: Problem details: Drinks alcoholic beverages daily, minimal of 2 servings of vodka daily, not infrequently 3-4 servings per day. Patient reports no problems with alcohol withdrawal and he also indicates he a intention to quit drinking. Status: Acute (4) Tobacco abuse disorder: Problem details: Currently smokes a minimum of 1 pack per day. Pre contemplative about quitting. Greater than 60 pack-year history. Status: Acute (5) Obstructive sleep apnea: Problem details: Uses CPAP at home. Status: Acute (6) Chronic respiratory failure: Problem details: Hypoxic Status: Acute (7) COPD (chronic obstructive pulmonary disease): Problem details: Advanced. Refuses quit smoking. Status: Acute (8) CVA (cerebral vascular accident): Problem details: 11/09/2018 presented with word-finding difficulties. Also affected dominant right upper extremity with difficulty writing. Now with atrial fibrillation and atrial flutter is at high risk for recurrent stroke so needs anticoagulation Status: Acute Plan Continue in hospital for rate control and management of hypoxia and heart failure. Obtain echo. If echocardiogram shows reduced ejection fraction would benefit from transfer for NAKUL and cardioversion. 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 Patient reports that he has had longstanding dyspnea but has not reported any change in his dyspnea recently. He does report he has had a cold for the last 2 weeks with some cough and congestion but no fever. He has not had any chest pain he is not aware of his heart beating fast or irregular. He has not had any syncope or lightheadedness. In the emergency department he is found to be in and atrial flutter with rapid ventricular response. He has had this problem in the past. A year ago he had this and spontaneously converted back to sinus rhythm. He has not been on anticoagulation. He does take clopidogrel and aspirin for previous history of stroke. He is on atorvastatin 40 mg daily as well. He takes atenolol 25 mg b.i.d.. Since admission he was given IV diltiazem and also started on digoxin because his blood pressure was relatively low with his rapid heart rate. He is now rate controlled with a 4-1 block of atrial flutter and heart rate in the low 70s. He reports having no new symptoms today. Exam Narrative: Exam Narrative: He is alert and appears in no distress. He is oriented to his circumstances. Respirations with occasional coarse expiratory crackles. No wheezing. Somewhat decreased breath sounds in all lung jacome. Cardiovascular: S1, S2, relatively regular rhythm. Initially tachycardic and now rate controlled. Abdomen: Bowel sounds active. Abdomen is soft without tenderness. Extremities with marked chronic venous stasis skin changes. Mild lower extremity edema. Large chronic ulcer on the lateral right leg without obvious infection Const: Vital Signs, click to edit/add: Vital Signs - 24 hr 11/08/22 10:57 11/08/22 11:00 11/08/22 11:00 Temperature 98.8 F Pulse Rate Pulse Rate [Left A pical] Pulse Rate [Left P ulse Oximeter] 144 H 144 H Respiratory Rate 20 22 Blood Pressure Blood Pressure [Le ft Arm] Blood Pressure [Ri ght Upper Arm] 114/79 120/74 Pulse Oximetry 96 90 83 L Oxygen Delivery Me thod Room Air Nasal Cannula Room Air Oxygen Flow Rate 3 11/08/22 11:33 11/08/22 11:34 11/08/22 11:46 Temperature Pulse Rate 144 H 144 H 146 H Pulse Rate [Left A pical] Pulse Rate [Left P ulse Oximeter] Respiratory Rate Blood Pressure 97/75 101/66 Blood Pressure [Le ft Arm] Blood Pressure [Ri ght Upper Arm] Pulse Oximetry 90 91 86 L Oxygen Delivery Me thod Oxygen Flow Rate 11/08/22 11:47 11/08/22 11:55 11/08/22 12:00 Temperature Pulse Rate 144 H 145 H 144 H Pulse Rate [Left A pical] Pulse Rate [Left P ulse Oximeter] Respiratory Rate Blood Pressure 109/69 Blood Pressure [Le ft Arm] Blood Pressure [Ri ght Upper Arm] Pulse Oximetry 91 91 91 Oxygen Delivery Me thod Oxygen Flow Rate 11/08/22 12:01 11/08/22 12:02 11/08/22 12:30 Temperature Pulse Rate 144 H 143 H 143 H Pulse Rate [Left A pical] Pulse Rate [Left P ulse Oximeter] Respiratory Rate Blood Pressure 106/80 Blood Pressure [Le ft Arm] Blood Pressure [Ri ght Upper Arm] Pulse Oximetry 91 91 92 Oxygen Delivery Me thod Oxygen Flow Rate 11/08/22 12:31 11/08/22 12:32 11/08/22 13:00 Temperature Pulse Rate 143 H 143 H 143 H Pulse Rate [Left A pical] Pulse Rate [Left P ulse Oximeter] Respiratory Rate Blood Pressure 105/65 Blood Pressure [Le ft Arm] Blood Pressure [Ri ght Upper Arm] Pulse Oximetry 91 91 93 Oxygen Delivery Me thod Oxygen Flow Rate 11/08/22 13:01 11/08/22 13:02 11/08/22 13:30 Temperature Pulse Rate 143 H 142 H 142 H Pulse Rate [Left A pical] Pulse Rate [Left P ulse Oximeter] Respiratory Rate Blood Pressure 97/65 Blood Pressure [Le ft Arm] Blood Pressure [Ri ght Upper Arm] Pulse Oximetry 93 94 93 Oxygen Delivery Me thod Oxygen Flow Rate 11/08/22 13:31 11/08/22 13:32 11/08/22 14:00 Temperature Pulse Rate 142 H 143 H 142 H Pulse Rate [Left A pical] Pulse Rate [Left P ulse Oximeter] Respiratory Rate Blood Pressure 96/67 Blood Pressure [Le ft Arm] Blood Pressure [Ri ght Upper Arm] Pulse Oximetry 93 95 90 Oxygen Delivery Me thod Oxygen Flow Rate 11/08/22 14:01 11/08/22 14:02 11/08/22 14:30 Temperature Pulse Rate 143 H 142 H 143 H Pulse Rate [Left A pical] Pulse Rate [Left P ulse Oximeter] Respiratory Rate Blood Pressure 96/69 Blood Pressure [Le ft Arm] Blood Pressure [Ri ght Upper Arm] Pulse Oximetry 90 90 89 Oxygen Delivery Me thod Oxygen Flow Rate 11/08/22 14:31 11/08/22 15:31 11/08/22 16:24 Temperature Pulse Rate 143 H 144 H Pulse Rate [Left A pical] 143 H Pulse Rate [Left P ulse Oximeter] Respiratory Rate Blood Pressure 96/67 Blood Pressure [Le ft Arm] 95/66 Blood Pressure [Ri ght Upper Arm] Pulse Oximetry 90 Oxygen Delivery Me thod Oxygen Flow Rate 11/08/22 16:24 11/08/22 16:24 11/08/22 16:26 Temperature 98.2 F Pulse Rate 143 H Pulse Rate [Left A pical] 143 H Pulse Rate [Left P ulse Oximeter] Respiratory Rate 20 20 Blood Pressure Blood Pressure [Le ft Arm] 94/69 Blood Pressure [Ri ght Upper Arm] Pulse Oximetry 91 91 Oxygen Delivery Me thod Nasal Cannula Nasal Cannula Oxygen Flow Rate 3 2 11/08/22 17:10 11/08/22 17:20 11/08/22 17:30 Temperature Pulse Rate Pulse Rate [Left A pical] 144 H 144 H 141 H Pulse Rate [Left P ulse Oximeter] Respiratory Rate Blood Pressure Blood Pressure [Le ft Arm] 105/66 91/70 100/68 Blood Pressure [Ri ght Upper Arm] Pulse Oximetry Oxygen Delivery Me thod Oxygen Flow Rate 11/08/22 17:40 11/08/22 17:50 11/08/22 18:00 Temperature Pulse Rate Pulse Rate [Left A pical] 144 H 144 H 144 H Pulse Rate [Left P ulse Oximeter] Respiratory Rate Blood Pressure Blood Pressure [Le ft Arm] 100/72 104/66 103/77 Blood Pressure [Ri ght Upper Arm] Pulse Oximetry Oxygen Delivery Me thod Oxygen Flow Rate 11/08/22 18:10 11/08/22 18:20 11/08/22 18:30 Temperature Pulse Rate Pulse Rate [Left A pical] 144 H 140 H 140 H Pulse Rate [Left P ulse Oximeter] Respiratory Rate Blood Pressure Blood Pressure [Le ft Arm] 109/79 114/57 L 100/78 Blood Pressure [Ri ght Upper Arm] Pulse Oximetry Oxygen Delivery Me thod Oxygen Flow Rate 11/08/22 18:40 11/08/22 19:00 11/08/22 19:00 Temperature 98.5 F 98.5 F Pulse Rate Pulse Rate [Left A pical] 138 H 146 H 146 H Pulse Rate [Left P ulse Oximeter] Respiratory Rate 20 20 Blood Pressure Blood Pressure [Le ft Arm] 93/67 84/67 L 84/76 L Blood Pressure [Ri ght Upper Arm] Pulse Oximetry 92 92 Oxygen Delivery Me thod Nasal Cannula Nasal Cannula Oxygen Flow Rate 2 1 11/08/22 19:30 11/08/22 20:00 11/08/22 20:15 Temperature Pulse Rate Pulse Rate [Left A pical] 144 H 144 H 144 H Pulse Rate [Left P ulse Oximeter] Respiratory Rate 20 Blood Pressure Blood Pressure [Le ft Arm] 101/68 120/74 112/76 Blood Pressure [Ri ght Upper Arm] Pulse Oximetry 89 Oxygen Delivery Me thod Nasal Cannula Oxygen Flow Rate 1 11/08/22 20:30 11/08/22 20:45 11/08/22 21:00 Temperature Pulse Rate Pulse Rate [Left A pical] 144 H 139 H 141 H Pulse Rate [Left P ulse Oximeter] Respiratory Rate 20 Blood Pressure Blood Pressure [Le ft Arm] 101/81 109/78 94/76 Blood Pressure [Ri ght Upper Arm] Pulse Oximetry 89 Oxygen Delivery Me thod Nasal Cannula Oxygen Flow Rate 1 11/08/22 21:00 11/08/22 21:15 11/08/22 21:28 Temperature Pulse Rate Pulse Rate [Left A pical] 141 H 144 H 144 H Pulse Rate [Left P ulse Oximeter] Respiratory Rate Blood Pressure Blood Pressure [Le ft Arm] 94/76 108/61 108/61 Blood Pressure [Ri ght Upper Arm] Pulse Oximetry Oxygen Delivery Me thod Oxygen Flow Rate 11/08/22 21:45 11/08/22 22:00 11/08/22 22:15 Temperature Pulse Rate Pulse Rate [Left A pical] 138 H 141 H 141 H Pulse Rate [Left P ulse Oximeter] Respiratory Rate 22 Blood Pressure Blood Pressure [Le ft Arm] 98/65 104/54 L 106/74 Blood Pressure [Ri ght Upper Arm] Pulse Oximetry 89 Oxygen Delivery Me thod Nasal Cannula Oxygen Flow Rate 2 11/08/22 22:30 11/08/22 22:45 11/08/22 23:31 Temperature Pulse Rate Pulse Rate [Left A pical] 141 H 141 H Pulse Rate [Left P ulse Oximeter] Respiratory Rate 18 Blood Pressure Blood Pressure [Le ft Arm] 113/65 109/71 Blood Pressure [Ri ght Upper Arm] Pulse Oximetry 87 L Oxygen Delivery Me thod CPAP Oxygen Flow Rate 3 11/08/22 23:32 11/09/22 00:00 11/09/22 00:58 Temperature 98.5 F Pulse Rate 71 Pulse Rate [Left A pical] 141 H 138 H Pulse Rate [Left P ulse Oximeter] Respiratory Rate 18 18 Blood Pressure Blood Pressure [Le ft Arm] 104/72 115/78 Blood Pressure [Ri ght Upper Arm] Pulse Oximetry 87 L 86 L Oxygen Delivery Me thod CPAP CPAP Oxygen Flow Rate 3 3 11/09/22 01:00 11/09/22 01:06 11/09/22 01:37 Temperature 98.5 F Pulse Rate Pulse Rate [Left A pical] 71 82 138 H Pulse Rate [Left P ulse Oximeter] Respiratory Rate 18 Blood Pressure Blood Pressure [Le ft Arm] 96/62 94/65 Blood Pressure [Ri ght Upper Arm] Pulse Oximetry 86 L Oxygen Delivery Me thod CPAP Oxygen Flow Rate 1 11/09/22 02:35 11/09/22 03:07 11/09/22 04:00 Temperature Pulse Rate Pulse Rate [Left A pical] 141 H 138 H 140 H Pulse Rate [Left P ulse Oximeter] Respiratory Rate Blood Pressure Blood Pressure [Le ft Arm] 97/67 94/66 95/66 Blood Pressure [Ri ght Upper Arm] Pulse Oximetry Oxygen Delivery Me thod Oxygen Flow Rate 11/09/22 05:19 11/09/22 05:20 11/09/22 05:20 Temperature 98.5 F Pulse Rate 138 H Pulse Rate [Left A pical] 138 H 138 H Pulse Rate [Left P ulse Oximeter] Respiratory Rate 18 Blood Pressure Blood Pressure [Le ft Arm] 97/67 97/67 Blood Pressure [Ri ght Upper Arm] Pulse Oximetry 86 L Oxygen Delivery Me thod CPAP Oxygen Flow Rate 1 11/09/22 06:01 11/09/22 06:56 11/09/22 07:00 Temperature 97.9 F Pulse Rate 138 H Pulse Rate [Left A pical] 141 H 138 H Pulse Rate [Left P ulse Oximeter] Respiratory Rate 20 Blood Pressure Blood Pressure [Le ft Arm] 97/69 93/67 Blood Pressure [Ri ght Upper Arm] Pulse Oximetry 88 Oxygen Delivery Me thod Nasal Cannula Oxygen Flow Rate 2 11/09/22 07:12 11/09/22 07:58 11/09/22 08:00 Temperature Pulse Rate 141 H Pulse Rate [Left A pical] 138 H Pulse Rate [Left P ulse Oximeter] Respiratory Rate 20 22 Blood Pressure Blood Pressure [Le ft Arm] 96/70 Blood Pressure [Ri ght Upper Arm] Pulse Oximetry 88 88 Oxygen Delivery Me thod Nasal Cannula Nasal Cannula Oxygen Flow Rate 2 2 11/09/22 09:00 11/09/22 09:00 11/09/22 10:06 Temperature 97.9 F Pulse Rate Pulse Rate [Left A pical] 72 72 72 Pulse Rate [Left P ulse Oximeter] Respiratory Rate 20 20 Blood Pressure Blood Pressure [Le ft Arm] 105/62 105/63 Blood Pressure [Ri ght Upper Arm] Pulse Oximetry 95 88 Oxygen Delivery Me thod Nasal Cannula Nasal Cannula Oxygen Flow Rate 1 1 Documenting provider has reviewed patient's vital signs: yes Labs Labs: Laboratory Results - last 24 hr 11/08/22 11/08/22 11/09/22 11:15 18:59 06:30 WBC 7.64 7.62 RBC 3.42 L 3.24 L Hgb 11.2 L 10.7 L Hct 35.0 L 33.6 L MCV 102 H 104 H MCH 33 33 MCHC 32 32 RDW Coeff of Alejandra 15.9 H Plt Count 148 155 Neut % (Auto) 59.8 Lymph % (Auto) 16.9 L [place] % (Auto) 16.8 H Eos % (Auto) 1.4 Baso % (Auto) 1.6 Neut # (Auto) 4.57 Lymph # (Auto) 1.30 [place] # (Auto) 1.30 H Eos # (Auto) 0.11 Baso # (Auto) 0.12 Abs Immat Gran (auto) 0.27 Imm/Tot Granulo (auto) 3.5 Diff Slide Review Acceptable Review VBG pH 7.375 VBG pCO2 51 H VBG pO2 25.4 VBG HCO3 30 H Sodium 138 137 Potassium 4.0 4.0 Chloride 103 102 Carbon Dioxide 29 31 BUN 17 16 Creatinine 1.1 1.0 Estimated Creat Clear 66.42 73.07 Estimated GFR 70 78 Glucose 123 H 121 H Lactate 1.5 Calcium 8.7 8.5 Phosphorus 3.4 Magnesium 1.6 2.5 Troponin I 0.02 0.02 C-Reactive Protein 3.3 H NT-Pro-B Natriuret Pep 2160 POC Troponin I 0.01
[2022-11-09] MEDS: FUROSEMIDE 10 MG/ML inj 20 MG IVP (10:53)
[2022-11-09] MEDS: Fluticasone-Umeclidin-Vilanter [Trelegy Ellipta] 100-62.5-25 mcg IH (11:05)
[2022-11-09] MEDS: ACETAMINOPHEN 325 MG TABLET 650 MG PO ×2 (11:41→18:37)
[2022-11-09] MEDS: DIGOXIN 250 MCG TABLET PO (11:43)
[2022-11-09] MEDS: METOPROLOL TARTRATE 25 MG TABLET PO ×2 (16:15→23:52)
[2022-11-09] MEDS: dilTIAZem 120 MG CAP.ER.24H PO (17:00)
--- NOTE | 2022-11-09 18:28 | PC.NURSE ---
Shift Summary: Patient pleasant and cooperative. Up with SBA, gait belt and walker. HR 140s this morning however resolved around 0830, Dilt drip has since been discontinued. Vitals have been stable today up until this afternoon following Echo. HR now 140s and Dr. Turcios updated, given PRN metoprolol and MD ordered dose of PO Diltiazem. Per dressing on right calf changed following orders from wound clinic.
[2022-11-09] MEDS: NICOTINE 21 MG PATCH 1 PATCH TRANSDERMA (18:37)
[2022-11-09] MEDS: THIAMINE 100 MG TABLET PO (18:37)
[2022-11-09] MEDS: ATORVASTATIN CALCIUM 40 MG TABLET PO (20:24)
[2022-11-10 03:00] VITALS: BP 106/79; PULSE 144; RESP 20; TEMP 36.6; O2SAT 89
[2022-11-10 06:39] LABS: Chloride* 103 mmol/L (96-114)
[2022-11-10 06:40] LABS: Potassium* 3.8 mmol/L (3.6-5.1); Sodium* 139 mmol/L (135-149)
[2022-11-10 06:42] LABS: Est. Creatinine Clearance* 73.07; Estimated Glomerular Filt Rate 78 ml/min
[2022-11-10 06:43] LABS: Blood Urea Nitrogen* 16 mg/dL (7-30); Calcium* 8.8 mg/dL (8.4-10.6); Carbon Dioxide* 32 mmol/L (20-32); Glucose* 149 mg/dL (60-115)
[2022-11-10 06:44] LABS: Basophils Absolute Auto 0.06 K/uL (0.00-0.30); Basophils Percent Auto 0.9 % (0.0-3.0); Eosinophils Absolute Auto 0.06 K/uL (0.00-0.50); Eosinophils Percent Auto 0.9 % (0.0-7.0); Hematocrit 34.3 % (37.0-53.0); Hemoglobin* 10.9 gm/dL (13.5-17.5); Immature Granulocytes Abs Auto 0.09 K/uL (0.00-0.30); Immature Granulocytes Pct Auto 1.4 %; Lymphocytes Absolute Auto 1.43 K/uL (0.90-2.90); Lymphocytes Percent Auto 22.6 % (20-44); Mean Corpuscular HGB Conc 32 gm/dL (32-36); Mean Corpuscular Hemoglobin 33 pg (26-34); Mean Corpuscular Volume 103 fL (80-100); Monocytes Percent Auto 18.3 % (0.0-11.0); Neutrophils Absolute Auto 3.54 K/uL (1.7-7.0); Neutrophils Percent Auto 55.9 % (42.0-72.0); Platelet Count* 160 K/uL (140-440); RDW Coefficient of Variation % 16.2 % (11.5-15.5); Red Blood Count 3.34 m/uL (4.30-5.90); White Blood Count* 6.34 K/uL (4.50-11.00)
[2022-11-10 06:47] LABS: Slide Review Reflex Yes
--- NOTE | 2022-11-10 06:50 | PC.NURSE ---
END OF SHIFT NOTE: PT PLEASANT AND COOPERATIVE. A&Ox3 WITH SLIGHT CONFUSION UPON BEING WOKE UP. DENIES CP, SOB, N/V. AMBULATES WITH 4WW OR CANE AND SBA. VSS; BP 100'S/70'S, HR 138-144. PRN METOPROLOL ADMINISTERED WITH NO EFFECT; AFEBRILE. PT ON 2.5L OXYGEN BLED INTO CPAP NOC. PT SLEEPS IN RECLINER. CALL LIGHT WITHIN PT?S REACH.?TELE READS AFLUTTER. PT HAS CHRONIC HAND TREMORS; CIWA'S SCORES 0.
[2022-11-10 07:00] VITALS: BP 109/76; PULSE 144; RESP 20; RESP 22; TEMP 36.6; O2SAT 86
[2022-11-10 07:30] VITALS: PULSE 144
[2022-11-10] MEDS: DIGOXIN 250 MCG TABLET 500 MCG PO (07:30)
[2022-11-10 08:25] LABS: Slide Review Acceptable Review (Acceptable)
[2022-11-10] MEDS: POTASSIUM CHLORIDE 10 MEQ CAPSULE ER 20 MEQ PO (08:26)
[2022-11-10] MEDS: dilTIAZem 120 MG CAP.ER.24H PO (08:29)
[2022-11-10] MEDS: FOLIC ACID 1 MG TABLET PO (08:29)
[2022-11-10] MEDS: Fluticasone-Umeclidin-Vilanter [Trelegy Ellipta] 100-62.5-25 mcg IH (08:29)
[2022-11-10] MEDS: METOPROLOL TARTRATE 50 MG TABLET PO (08:29)
[2022-11-10] MEDS: FUROSEMIDE 20 MG TABLET PO (08:29)
[2022-11-10] MEDS: APIXABAN 5 MG TABLET PO (08:29)
[2022-11-10] MEDS: SODIUM CHLORIDE 0.9 % (FLUSH) 10 ML SYRINGE 5 ML IVF (08:32)
--- NOTE | 2022-11-10 10:55 | P.DS_ITS ---
DS: Providers Provider Date Seen: 11/10/22 Date of admission: 11/08/22 15:31 Primary care physician: Marcio Gonzalez MD Admitting Clinician: Jose Turcios MD Attending Physician on discharge: Russ Kendrick MD Date of Discharge: 11/10/22 DS: Diagnosis Discharge Diagnosis (1) Atrial flutter with rapid ventricular response: Status: Acute Problem details: During hospitalization patient had IV then oral diltiazem, metoprolol and digoxin. Digoxin was used because patient had relatively low blood pressure. Despite this he continued to have episodes of atrial flutter with RVR with heart rate in the low 140s. He was encouraged to stay in the hospital another day to optimize his rate control but he is anxious to go home. Echocardiogram was obtained and shows preserved ejection fraction. 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 (2) Acute on chronic respiratory failure with hypoxemia: Status: Acute Problem details: Hypoxia on admission. Now better on room air. Did receive some extra diuresis during his hospital stay for volume overload (3) Alcohol use disorder: Status: Acute Problem details: Drinks alcoholic beverages daily, minimal of 2 servings of vodka daily, not infrequently 3-4 servings per day. He was advised to stop drinking due to the toxic effects of alcohol on his heart and heart rhythm and he reports he intends to be abstinent from alcohol. (4) COPD (chronic obstructive pulmonary disease): Status: Acute Problem details: Advanced. Refuses quit smoking. (5) Chronic respiratory failure: Status: Acute Problem details: Hypoxic (6) Obstructive sleep apnea: Status: Acute Problem details: Uses CPAP at home. (7) CVA (cerebral vascular accident): Status: Acute Problem details: 11/09/2018 presented with word-finding difficulties. Also affected dominant right upper extremity with difficulty writing. Now with atrial fibrillation and atrial flutter is at high risk for recurrent stroke so needs anticoagulation. DS: Summary Hospital Course Hospital Course: 76-year-old male admitted to the hospital for tachycardia. Patient reported no new symptoms prior to admission. He was at a routine clinic visit when he was found to have a heart rate in the 140s. This was determined to be atrial flutter with 2-1 block. At time admission he was felt to have mild heart failure exacerbation as well. He was hypoxic at the time. He was started on diltiazem IV. He has and switched over to metoprolol with digoxin. He had some problems with low blood pressure on admission and so digoxin was used for rate control. Rate control led to atrial flutter with a 4-1 block and her heart rate in the low 70s. But intermittently he would go back to a 2-1 block with heart rate in the 140s. He was asymptomatic with this. Diltiazem orally was added and with a combination of digoxin, metoprolol, diltiazem he was able to maintain heart rate control at rest. Patient was very anxious to go home. I had requested that he stay 1 more day so weak and optimize his heart rate management in light of his blood pressure issues. He indicated that he would prefer to go home. I have asked him to obtain a blood pressure cuff and monitor his blood pressure and pulse twice a day at home, record the readings and bring them to his doctor to help titrate medications for heart rate and blood pressure control Status at Discharge Functional status at discharge: uses cane/walker Overall status at discharge: patient is progressing back to baseline Time Spent with Patient Time attestation: Total time spent providing and/or coordinating discharge services: Time spent: Greater than 30 minutes (45 minutes) Exam Narrative: Exam Narrative: He is alert and appears in no distress. Respirations are clear to auscultation. He has diminished breath sounds but no wheezing. Cardiovascular: S1, S2, regular rate and rhythm. Abdomen is soft without tenderness. Abdomen is soft without tenderness. Const: Vital Signs, click to edit/add: Vital Signs - 24 hr 11/09/22 11:00 11/09/22 11:00 11/09/22 11:00 Temperature 98.2 F 98.2 F Pulse Rate 73 Pulse Rate [Left A pical] 72 72 Respiratory Rate 22 22 Blood Pressure [Le ft Arm] 111/60 111/60 Pulse Oximetry 88 88 Oxygen Delivery Me thod Nasal Cannula Nasal Cannula Oxygen Flow Rate 1 1 11/09/22 11:43 11/09/22 15:00 11/09/22 15:03 Temperature 98.2 F Pulse Rate 73 73 Pulse Rate [Left A pical] 73 Respiratory Rate 22 Blood Pressure [Le ft Arm] 105/57 L Pulse Oximetry 90 Oxygen Delivery Me thod Nasal Cannula Oxygen Flow Rate 1 11/09/22 15:12 11/09/22 15:14 11/09/22 16:16 Temperature 98.2 F Pulse Rate Pulse Rate [Left A pical] 73 141 H Respiratory Rate 22 22 Blood Pressure [Le ft Arm] 105/57 L 96/70 Pulse Oximetry 88 90 Oxygen Delivery Me thod Nasal Cannula Nasal Cannula Oxygen Flow Rate 1 1 11/09/22 19:00 11/09/22 19:00 11/09/22 23:35 Temperature 98.4 F 98.4 F Pulse Rate 141 H Pulse Rate [Left A pical] 144 H 144 H Respiratory Rate 20 20 Blood Pressure [Le ft Arm] 95/58 L 95/58 L Pulse Oximetry 90 90 Oxygen Delivery Me thod Nasal Cannula Nasal Cannula Oxygen Flow Rate 1 1 11/09/22 23:35 11/09/22 23:35 11/09/22 23:35 Temperature 97.5 F L Pulse Rate Pulse Rate [Left A pical] 141 H 141 H Respiratory Rate 22 22 20 Blood Pressure [Le ft Arm] 109/78 Pulse Oximetry 88 90 Oxygen Delivery Me thod Nasal Cannula CPAP Nasal Cannula Oxygen Flow Rate 2.5 1 11/10/22 03:00 11/10/22 07:00 11/10/22 07:00 Temperature 97.8 F 97.8 F Pulse Rate Pulse Rate [Left A pical] 144 H 144 H 144 H Respiratory Rate 20 22 22 Blood Pressure [Le ft Arm] 106/79 109/76 Pulse Oximetry 89 86 L Oxygen Delivery Me thod CPAP CPAP Oxygen Flow Rate 2.5 2.5 11/10/22 07:00 11/10/22 07:00 11/10/22 07:30 Temperature Pulse Rate 144 H 144 H Pulse Rate [Left A pical] Respiratory Rate 20 Blood Pressure [Le ft Arm] Pulse Oximetry 86 L Oxygen Delivery Me thod CPAP Oxygen Flow Rate 2.5 Documenting provider has reviewed patient's vital signs: yes DS: Data Data Completed and Pending Labs on day of discharge: Labs from last 24 hours 11/10/22 05:59 WBC 6.34 RBC 3.34 L Hgb 10.9 L Hct 34.3 L MCV 103 H MCH 33 MCHC 32 RDW Coeff of Alejandra 16.2 H Plt Count 160 Neut % (Auto) 55.9 Lymph % (Auto) 22.6 Cass % (Auto) 18.3 H Eos % (Auto) 0.9 Baso % (Auto) 0.9 Neut # (Auto) 3.54 Lymph # (Auto) 1.43 Cass # (Auto) 1.20 H Eos # (Auto) 0.06 Baso # (Auto) 0.06 Abs Immat Gran (auto) 0.09 Imm/Tot Granulo (auto) 1.4 Diff Slide Review Acceptable Review Sodium 139 Potassium 3.8 Chloride 103 Carbon Dioxide 32 BUN 16 Creatinine 1.0 Estimated Creat Clear 73.07 Estimated GFR 78 Glucose 149 H Calcium 8.8 Discharge Plan Discharge Disposition: Home, Self-Care Date of Admission: 11/08/22 15:31 Attending Physician on Admission: Jose Turcios Attending Provider on Discharge: Pee Kendrick Primary Care Provider: Marcio Gonzalez Condition: Unchanged Anticipated Discharge Date/Time: 11/10/22 10:30 Discharge Medications: New metoprolol tartrate 50 mg Tablet 50 mg PO BID Qty: 60 0RF Eliquis 5 mg Tablet 5 mg PO BID Qty: 60 0RF digoxin 250 mcg (0.25 mg) tablet 250 mcg PO DAILY Qty: 30 0RF diltiazem HCl [DILT-XR] 180 mg capsule,ext.rel 24h degradable 180 mg PO DAILY Qty: 30 0RF magnesium oxide 400 mg magnesium capsule 400 mg PO DAILY Qty: 30 0RF Continued atorvastatin 40 mg tablet 40 mg PO HS Patient Comments: TAKE 1 TABLET BY MOUTH EVERY DAY AT BEDTIME furosemide 20 mg tablet 20 mg PO BID@,16 Patient Comments: TAKE 1 TABLET BY MOUTH TWICE A DAY albuterol sulfate 90 mcg/actuation HFA aerosol inhaler 2 puff INHALATION QID PRN (Reason: shortness of breath or wheezing) Patient Comments: INHALE 2 PUFFS 4 TIMES DAILY IF NEEDED FOR SHORTNESS OF BREATH 1ST CHOICE OR WHEEZING 2ND CHOICE potassium chloride 20 mEq tablet extended release 20 meq PO BIDWM Patient Comments: TAKE 1 TABLET BY MOUTH TWICE A DAY WITH MEALS tramadol 50 mg tablet 50 mg PO Q12H PRN (Reason: pain) Patient Comments: takes prior to dressing change Trelegy Ellipta 100-62.5-25 mcg blister with device 1 inh INHALATION DAILY omega 8-eqn-fov-fish oil [Fish Oil] 1,000 mg (120 mg-180 mg) capsule 1 cap PO DAILY acetaminophen 500 mg capsule 500 - 1,000 mg PO Q6H PRN Discontinued aspirin 81 mg tablet,chewable 81 mg PO DAILY atenolol 25 mg tablet 25 mg PO BID Qty: 60 2RF clopidogrel 75 mg tablet 75 mg PO DAILY Discharge Orders: Discharge Order (Routine); Ordered 11/10/22 Ordered By: Pee Kendrick Additional Instructions: Obtain a blood pressure cuff. Measure your blood pressure and pulse twice a day and record the readings on a piece of paper to take to your doctor. You can check your blood pressure and pulse if you do not feel well. The goal is for your resting pulse is to be less than 100 and your resting blood pressure to be above 90/60. Avoid alcohol as it causes heart problems including heart rhythm problems. Activity Level: Activity as Tolerated Discharge Diet: Heart Healthy (2 gm sodium, low fat) Follow Up Appointments: Marcio Gonzalez MD [Primary Care Provider] - None (Follow-up in 3-4 days.) Espinoza Price MD [Referring] - 11/13/22 1:45 pm ([facility] for follow-up.) Forms: [employer] Info Instructions Hospital Course: 76-year-old male admitted to the hospital for tachycardia. Patient reported no new symptoms prior to admission. He was at a routine clinic visit when he was found to have a heart rate in the 140s. This was determined to be atrial flutter with 2-1 block. At time admission he was felt to have mild heart failure exacerbation as well. He was hypoxic at the time. He was started on diltiazem IV. He has and switched over to metoprolol with digoxin. He had some problems with low blood pressure on admission and so digoxin was used for rate control. Rate control led to atrial flutter with a 4-1 block and her heart rate in the low 70s. But intermittently he would go back to a 2-1 block with heart rate in the 140s. He was asymptomatic with this. Diltiazem orally was added an d with a combination of digoxin, metoprolol, diltiazem he was able to maintain heart rate control at rest. Patient was very anxious to go home. I had requested that he stay 1 more day so weak and optimize his heart rate management in light of his blood pressure issues. He indicated that he would prefer to go home. I have asked him to obtain a blood pressure cuff and monitor his blood pressure and pulse twice a day at home, record the readings and bring them to his doctor to help titrate medications for heart rate and blood pressure control
--- NOTE | 2022-11-10 13:55 | PC.NURSE ---
Discharge: Patient discharged at 1306 to home with . Education given on how to use BP cuff to monitor pulse and BP prior to taking metoprolol. Patient was alert and oriented x4, VSS, on RA. IV removed intact, discharge instructions signed and patient verbalized understanding of instructions. Belongings sheet signed.
== END 2022-11-10 13:06 | disposition home or self-care (01) | DRG 308 ==
LOC: ED 14:25 → MEDSURG 15:10
PROVIDERS: Family Medicine; Admitting Provider Internal Medicine; Emergency Provider Emergency Medicine Emergency Medical Services; PCP Family Medicine; Visit Provider Internal Medicine
DX: I48.92 Unspecified atrial flutter (principal); I50.33 Acute on chronic diastolic (congestive) heart failure; J96.21 Acute and chronic respiratory failure with hypoxia; I87.331 Chronic venous hypertension (idiopathic) with ulcer and inflammation of right lower extremity; L97.212 Non-pressure chronic ulcer of right calf with fat layer exposed; I48.0 Paroxysmal atrial fibrillation; G47.33 Obstructive sleep apnea (adult) (pediatric); E66.9 Obesity, unspecified; J44.9 Chronic obstructive pulmonary disease, unspecified; Z79.01 Long term (current) use of anticoagulants; I44.7 Left bundle-branch block, unspecified; I72.3 Aneurysm of iliac artery; F10.10 Alcohol abuse, uncomplicated; K76.0 Fatty (change of) liver, not elsewhere classified; F17.210 Nicotine dependence, cigarettes, uncomplicated; Z86.73 Personal history of transient ischemic attack (TIA), and cerebral infarction without residual deficits; I77.819 Aortic ectasia, unspecified site; I87.2 Venous insufficiency (chronic) (peripheral); Z68.39 Body mass index [BMI] 39.0-39.9, adult
CPT/HCPCS: 36415; 80048; 82803; 83605; 83735; 83880; 84100; 84484; 85025; 85027; 86140; 93005; 93306; 94664; 97110; 97116; 97161; 97165; 97530; 99285; A9270; J1940; J3475; J3490; J7120; S4990

== ENCOUNTER 2022-11-16 10:03 | Outpatient (CLI) | payer MEDICARE, BC, SELFPAY | END 2022-11-16 10:04 | disposition home or self-care (01) | LOC: WOUND 10:03 | PROVIDERS: PCP Family Medicine; Visit Provider Nurse Practitioner Family | DX: I87.311 Chronic venous hypertension (idiopathic) with ulcer of right lower extremity (principal); L97.212 Non-pressure chronic ulcer of right calf with fat layer exposed; I89.0 Lymphedema, not elsewhere classified; Z72.0 Tobacco use | CPT/HCPCS: 97597 ==

== ENCOUNTER 2022-11-23 09:57 | Outpatient (CLI) | payer MEDICARE, BC, SELFPAY | END 2022-11-23 09:58 | disposition home or self-care (01) | LOC: WOUND 09:57 | PROVIDERS: PCP Family Medicine; Visit Provider Nurse Practitioner Family | DX: I87.311 Chronic venous hypertension (idiopathic) with ulcer of right lower extremity (principal); L97.212 Non-pressure chronic ulcer of right calf with fat layer exposed; I89.0 Lymphedema, not elsewhere classified; Z72.0 Tobacco use | CPT/HCPCS: 11042 ==

== ENCOUNTER 2022-11-30 10:27 | Outpatient (CLI) | payer MEDICARE, BC, SELFPAY | END 2022-11-30 10:28 | disposition home or self-care (01) | LOC: WOUND 10:27 | PROVIDERS: PCP Family Medicine; Visit Provider Nurse Practitioner Family | DX: I87.311 Chronic venous hypertension (idiopathic) with ulcer of right lower extremity (principal); L97.212 Non-pressure chronic ulcer of right calf with fat layer exposed; I89.0 Lymphedema, not elsewhere classified; Z72.0 Tobacco use | CPT/HCPCS: 11042 ==

== ENCOUNTER 2022-12-07 10:29 | Outpatient (CLI) | payer MEDICARE, BC, SELFPAY | END 2022-12-07 10:30 | disposition home or self-care (01) | LOC: WOUND 10:29 | PROVIDERS: PCP Family Medicine; Visit Provider Nurse Practitioner Family | DX: I87.311 Chronic venous hypertension (idiopathic) with ulcer of right lower extremity (principal); L97.212 Non-pressure chronic ulcer of right calf with fat layer exposed | CPT/HCPCS: 11042 ==

== ENCOUNTER 2022-12-21 10:29 | Outpatient (CLI) | payer MEDICARE, BC, SELFPAY | END 2022-12-21 10:30 | disposition home or self-care (01) | LOC: WOUND 10:29 | PROVIDERS: PCP Family Medicine; Visit Provider Nurse Practitioner Family | DX: I87.311 Chronic venous hypertension (idiopathic) with ulcer of right lower extremity (principal); L97.212 Non-pressure chronic ulcer of right calf with fat layer exposed; I89.0 Lymphedema, not elsewhere classified; Z72.0 Tobacco use | CPT/HCPCS: 11042 ==

== ENCOUNTER 2023-01-04 09:31 | Outpatient (CLI) | payer MEDICARE, BC, SELFPAY | END 2023-01-04 09:32 | disposition home or self-care (01) | LOC: WOUND 09:32 | PROVIDERS: PCP Family Medicine; Visit Provider Nurse Practitioner Family | DX: I87.311 Chronic venous hypertension (idiopathic) with ulcer of right lower extremity (principal); L97.212 Non-pressure chronic ulcer of right calf with fat layer exposed; I89.0 Lymphedema, not elsewhere classified | CPT/HCPCS: 11042 ==

== ENCOUNTER 2023-01-18 10:31 | Outpatient (CLI) | payer MEDICARE, BC, SELFPAY | END 2023-01-18 10:32 | disposition home or self-care (01) | LOC: WOUND 10:32 | PROVIDERS: PCP Family Medicine; Visit Provider Nurse Practitioner Family | DX: I87.311 Chronic venous hypertension (idiopathic) with ulcer of right lower extremity (principal); L97.212 Non-pressure chronic ulcer of right calf with fat layer exposed; I89.0 Lymphedema, not elsewhere classified | CPT/HCPCS: 11042 ==

== ENCOUNTER 2023-01-31 10:16 | Day surgery (SDC) | payer MEDICARE, BC, SELFPAY ==
[2023-01-31] VITALS (14 sets, daily range): BP systolic 109–129; BP diastolic 45–61; PULSE 46–49; RESP 12–16; TEMP 36.5–36.9; O2SAT 88–93; BMI 40.4
[2023-01-31] MEDS: TETRACAINE 0.5% OPHTH 1 DROP EYE-LEFT (10:43)
[2023-01-31] MEDS: KETOROLAC OPHTH 0.5% 1 DROP EYE-LEFT ×3 (10:49→11:10)
[2023-01-31] MEDS: SODIUM CHLORIDE 0.9 % (FLUSH) 10 ML SYRINGE IVF (11:19)
[2023-01-31] MEDS: TETRACAINE 0.5% OPHTH 2 DROP EYE-LEFT (11:51)
[2023-01-31] MEDS: BALANCED SALT IRRIG SOLN 15 ML EYE-LEFT (12:01)
[2023-01-31] MEDS: BRIMONIDINE TARTRATE 0.2% OPHTH 1 DROP EYE-LEFT (12:14)
--- NOTE | 2023-01-31 12:19 | PM.PROC ---
Procedure Note Date Seen: 01/31/[address] [facility] bill your pro fee for this procedure?: No Pre-op diagnosis: combined form o f cataract left eye Procedure: kpe with pc iol os Procedure Description: NAME OF PROCEDURE Kelman phacoemulsification, left eye, with posterior chamber lens implant. PREOPERATIVE DIAGNOSIS Nuclear sclerotic cortical combined cataract, left eye. POSTOPERATIVE DIAGNOSIS Nuclear sclerotic cortical combined cataract, left eye. INDICATIONS FOR PROCEDURE The patient has noted that his vision in the left eye is failing. Severity 7/10. Unable to correct with glasses/contact lenses; has disabling night glare when driving, difficulty reading. Because of this, the patient elected to proceed with surgical repair. I have explained the risks, benefits, alternative treatments to the patient including possible loss of the eye under correction, over correction, need for more surgery. The patient understands, accepts, and elects to proceed with surgical repair. PROCEDURE The left eye was dilated with a combination 1% Mydriacyl, 2.5% phenylephrine with topical Ocufen and Vigamox applied to the corneal surface. The patient was brought to the main operating room where under general anesthesia, after pausing to identify the correct patient, correct intraoperative lens, power disease zB OO 21.0 diopters, the left eye was prepped and draped in usual sterile fashion for intraocular surgery. A lid speculum was placed and a paracentesis created at 6 o'clock. The chamber was filled with OVD and entered temporally with a keratome. A continuous tear capsulotomy was performed. The nucleus was hydrodissected and emulsified with local anesthetic and emulsified in a chop technique in the capsular bag. Residual cortex was cleaned. The capsule was clear. At this point, ZCBOO 21.0 diopter posterior chamber lens implant was injected into the capsular bag and was well centered. Residual OVD was cleaned from behind the implant from the capsular bag. The incision hydrated and noted to be leak free. Topical Alphagan, pilocarpine, and Vigamox were applied to the corneal surface and the patient returned to recovery in good condition having tolerated the procedure well. CONDITION ON DISCHARGE Satisfactory.
--- NOTE | 2023-01-31 12:23 | W.ANESCHARGE ---
Anesthesia Charges Start Date/Time Anesthesia Start Date: 01/31/23 Anesthesia Start Time: 11:46 Stop Date/Time Anesthesia Stop Date: 01/31/23 Anesthesia Stop Time: 12:23 Summary Extremes of Age - Over 70 or under 1: [employer]
--- NOTE | 2023-01-31 12:49 | W.ANESCHARGE ---
Anesthesia Charges Start Date/Time Anesthesia Start Date: 01/31/23 Anesthesia Start Time: 11:46 Stop Date/Time Anesthesia Stop Date: 01/31/23 Anesthesia Stop Time: 12:23 Summary Extremes of Age - Over 70 or under 1: MDA
--- NOTE | 2023-01-31 13:57 | SUR.PHASEII ---
pt had 400cc LR fluids wasted. used 600 cc
== END 2023-01-31 13:58 | disposition home or self-care (01) ==
PROVIDERS: PCP Family Medicine; Visit Provider Ophthalmology
PROC: (CPT 66984; principal; 2023-01-31 11:30)
DX: H25.812 Combined forms of age-related cataract, left eye (principal)
CPT/HCPCS: 66984; 00142; 99100; A9270; J1120; J2250; J2704; J3010; S0020; V2632

== ENCOUNTER 2023-02-08 10:25 | Outpatient (CLI) | payer MEDICARE, BC, SELFPAY | END 2023-02-08 10:26 | disposition home or self-care (01) | LOC: WOUND 10:25 | PROVIDERS: PCP Family Medicine; Visit Provider Nurse Practitioner Family | DX: I87.311 Chronic venous hypertension (idiopathic) with ulcer of right lower extremity (principal); L97.212 Non-pressure chronic ulcer of right calf with fat layer exposed | CPT/HCPCS: 97597 ==

== ENCOUNTER 2023-03-15 10:04 | Outpatient (CLI) | payer MEDICARE, BC, SELFPAY | END 2023-03-15 10:05 | disposition home or self-care (01) | LOC: WOUND 10:04 | PROVIDERS: PCP Family Medicine; Visit Provider Nurse Practitioner Family | DX: I87.311 Chronic venous hypertension (idiopathic) with ulcer of right lower extremity (principal); L97.212 Non-pressure chronic ulcer of right calf with fat layer exposed; I89.0 Lymphedema, not elsewhere classified | CPT/HCPCS: 11042 ==

== ENCOUNTER 2023-03-29 10:29 | Outpatient (CLI) | payer MEDICARE, BC, SELFPAY | END 2023-03-29 10:30 | disposition home or self-care (01) | LOC: WOUND 10:30 | PROVIDERS: PCP Family Medicine; Visit Provider Nurse Practitioner Family | DX: I87.311 Chronic venous hypertension (idiopathic) with ulcer of right lower extremity (principal); L97.212 Non-pressure chronic ulcer of right calf with fat layer exposed | CPT/HCPCS: 97597 ==

== ENCOUNTER 2023-04-12 10:00 | Outpatient (CLI) | payer MEDICARE, BC, SELFPAY | END 2023-04-12 10:01 | disposition home or self-care (01) | LOC: WOUND 10:01 | PROVIDERS: PCP Family Medicine; Visit Provider Family Medicine | DX: I87.311 Chronic venous hypertension (idiopathic) with ulcer of right lower extremity (principal); L97.212 Non-pressure chronic ulcer of right calf with fat layer exposed; I89.0 Lymphedema, not elsewhere classified | CPT/HCPCS: 11042 ==

== ENCOUNTER 2023-04-26 09:56 | Outpatient (CLI) | payer MEDICARE, BC, SELFPAY ==
--- OUTSIDE RECORDS SUMMARY | 2023-04-26 09:58 | XMS_ITS | Clinical Summary ---
Author Name Unknown Organization [facility] Address [place], [place] [address] Care Team Providers Care House Wrecker Name Role Phone Marcio Gonzalez MD Primary Care Provider [phone] Allergies Active Allergy Reactions Criticality Noted Date Comments Codeine Other - Describe In Comment Field Medium 07/04/2006 doesn't tolerate Oxycodone Hallucinations High 02/13/2022 Penicillins Rash Medium 07/04/2006 Medications Medication Sig Dispensed Refills Start Date End Date Status acetaminophen (TYLENOL) 325 mg tablet Take 2 Tablets (650 mg) by mouth every 6 hours. Max acetaminophen dose: 4000mg in 24 hrs. 0 2 Active albuterol HFA (PRO-AIR; VENTOLIN; PROVENTIL) 90 mcg/actuation inhalerIndications :Other emphysema (HC) Inhale 2 Puffs by mouth every 4 hours if needed for Shortness of Breath 1st choice or Wheezing 2nd choice. 18 Each 5 3 Active potassium chloride (KLOR-CON) 20 mEq extended-release tablet (part/cryst)Indica tions:Edema of right lower extremity Take 1 Tablet (20 mEq) by mouth two times daily with meals. 180 Tablet 3 3 Active furosemide (LASIX) 20 mg tabletIndications: Edema of right lower extremity Take 1 Tablet (20 mg) by mouth two times daily. 180 Tablet 3 3 Active atorvastatin (LIPITOR) 40 mg tabletIndications: Other hyperlipidemia Take 1 Tablet (40 mg) by mouth at bedtime. 90 Tablet 3 3 Active fluticasone rpz-vbmfjhhvoarv-r ilanterol (Trelegy Ellipta) 100-62.5-25 mcg inhalerIndications :Panlobular emphysema (HC) Inhale 1 Puff by mouth once daily. 180 Each 1 3 Active acetic acid 0.25% 0.25 % irrigation APPLY 5 MINUTE SOAK TO WOUND EVERY OTHER DAY AND NEEDED FOLLOWING WOUND CARE ORDERS. 0 3 Active ammonium lactate 12% topical (LACHYDRIN) 12 % lotion APPLY TO LEGS AND FEET ONCE DAILY. 0 3 Active dilTIAZem (DILACOR XR; DILTIA XT) 180 mg Extended-Release capsuleIndications :Paroxysmal atrial fibrillation (HC) Take 1 Capsule (180 mg) by mouth once daily. 90 Capsule 2 3 Active apixaban (ELIQUIS) 5 mg tabletIndications: Paroxysmal atrial fibrillation (HC) Take 1 Tablet (5 mg) by mouth two times daily. 180 Tablet 2 3 Active metoprolol tartrate (LOPRESSOR) 50 mg tabletIndications: Paroxysmal atrial fibrillation (HC) Take 1 Tablet (50 mg) by mouth two times daily. 180 Tablet 2 3 Active magnesium oxide (MAG-OX 400) 400 mg tabletIndications: Low magnesium level TAKE 1 TABLET BY MOUTH EVERY DAY 90 Tablet 1 3 Active BiPapIndications:O bstructive sleep apnea bPAP machine for home use at pressure: I: 14 E: 10 cmw , Heated humidifier x 1 q 5 yr, Humidifier chamber x 1 q 6 mo, Full face mask x1 q 3mos, with cushion x 1 q mo, Heated tubing x 1 q 3 mo, Headgear x 1 q 6 mo, Filters: Disposable x 2 q mo non-disposable filters x1 q 6mo, Length of Need: 99 months, Frequency of use: Daily 1 Each 11 3 Active mirtazapine (REMERON) 7.5 mg tabletIndications: Chronic insomnia Take 1 Tablet (7.5 mg) by mouth at bedtime. Please take at 7PM 90 Tablet 2 3 Active traMADoL (ULTRAM) 50 mg tabletIndications: Right leg pain TAKE 1 TABLET BY MOUTH DAILY NEEDED FOR WOUND PAIN OR BACK PAIN 30 Tablet 0 4 Active traMADoL (ULTRAM) 50 mg tabletIndications: Right leg pain TAKE 1 TABLET BY MOUTH DAILY NEEDED FOR WOUND PAIN OR BACK PAIN 30 Tablet 0 3 024 Discontinued Active Problems Problem Noted Date Diagnosed Date Venous stasis ulcer of other part of lower leg with other ulcer severity with varicose veins, unspecified laterality 10/26/2022 Chronic respiratory failure with hypoxia 023 Paroxysmal atrial fibrillation 10/26/2022 Right leg pain due to wound 05/08/2022 Overview: Tramadol and Gabapentin are to treat neuropathic pain associated with leg wound. He is limited to 20 Tramadol pills per month and he and his agreed to this on 05/08/2022. His wounds take about 3 months to heal and they have been treating this wound for a month at the wound clinic. Aneurysm of right internal iliac artery 02/14/20 22 Depression, recurrent 08/08/2021 Acute ischemic stroke 11/18/2018 Overview: Date of stroke was 11/09/18 Word Finding Difficulties Recommended [place] [facility]. Speech therapy, OT, and PHYSICAL THERAPY It was recommended he stay on Plavix for 90 days and aspirin 81 mg for life. Morbid obesity with BMI of 40.0-44.9, adult 09/07 Fatty liver 09/23/2018 Lung nodule 05/02/2018 Overview: Due for a follow up CT of lung in 10/[address] of lung in 10/2021 was negative for any lung nodules so follow up will be a low dose CT for lung cancer screening given he continues to smoke. Marcio Gonzalez MD signed electronically .................... 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 07/07/2009 09/21/2010 Overview: INR Goal Range: 1.8 - 2.5 Encounters Date Type Department Care Team Description 04/20/2023 Refill [facility] [address] [place] [address] Marcio Gonzalez MD Refill Request (Tramadol) 03/28/2023 Telephone [facility] [place] [address] [place] [phone] Dave Maya MD Medication Management 03/27/2023 2:40 PM OFFICE MAIL CLERK Orders Only [facility] [address] [place] [address] Lab, [facility]; Outside Order (Graciela Watts/) 03/27/2023 Travel 03/27/2023 Orders Only [facility] [address] [place] [address] Marcio Gonzalez MD Outside Order (Ordered by Graciela Watts) 03/27/2023 Telephone [facility] [address] [place] [address] Marcio Gonzalez MD Questions (Dr. Graciela Giron wants to discuss patients eye issues and request labwork) 03/20/2023 Refill [facility] [address] [place] [address] Marcio Gonzalez MD Refill Request (Tramadol) 02/27/2023 10:00 AM OFFICE MAIL CLERK Office Visit [facility] [address] [place] [phone] Dave Maya MD CV General Cardiology Est (3 MO F/U /DX: Paroxysmal atrial fibrillation (HC) [I48.0] ///PCP: Marcio Gonzalez MD/) 02/27/2023 Travel 02/18/2023 Refill [facility] [address] [place] [address] Marcio Gonzalez MD Refill Request (Tramadol) 02/02/2023 Refill [facility] [address] [place] [address] Marcio Gonzalez MD Refill Request (Atorvastatin) 01/31/2023 Orders Only [facility] Scanner 1 scan: (1-Ord) [facility] WITH POSTERIOR CHAMBER LENS IMPLANT, 01/31/2023 01/24/2023 Telephone [facility] [address] [place] [address] Dorian Draper MD Refill Request (mirtazapine (REMERON) 7.5 mg tablet /) from Last 3 Months Immunizations Name Administration Dates Next Due COVID-19 Vaccine Spikevax (M oderna 50mcg/0.5mL) 12YO+ [id number] Formula PF 01/17/2023 COVID-19 vaccine ([employer] 30mcg/0.3mL) P F, MDV 06/22/2020,06/01/2020 Influenza, High-dose Inactivated 06/06/2019,12/09 Influenza, High-dose Quadrivalent Inactivated ,02/04/2020 Influenza, IIV3 (Age >=3 years) 06/05/2013,03/16 Influenza, Inactivated AIIV4 (Age 65+ Years) Preserv Free 01/17/2023,02/22/2021 Influenza, Inactivated IIV3 (Age 65+ Years) Preserv Free 12/07/2017,12/13/2016 Pneumococcal Poly,23-Valent (Pneumovax) 06/05/19 14,03/14/2000 Pneumococcal conj 13-Valent (Prevnar 13) 016 Td (Age >=7 Years) 05/22/1996 Tdap 03/16/2008,07/04/2006 Family History Medical History Relation Name Comments Heart Disease Brother 2 CABG at age 72 Cancer Father facial cancer a t 82. Heart Disease Mother at age 86; ali ve at 98 in 2010 Diabetes Other none Cancer Sister 3 brain; age 69 Cancer-breast Sister 4 Relation Name Status Comments Brother 1 Alive Brother 2 Father Mother Other Sister 1 Sister 2 Alive Sister 3 Sister 4 Social History Tobacco Use Types Packs/Day Years Used Date Smoking Tobacco: Every Day Cigarettes 1 60 Smokeless Tobacco: Never Tobacco Cessation:Ready to Q uit: No; Counseling Given: No Alcohol Use Standard Drinks/Week Comments Yes 0 (1 standard drink = 0.6 oz pur e alcohol) 2 beers a day PHQ-2 Answer Date Recorded PHQ-2 TOTAL SCORE 0 11/08/2022 Social Connections Answer Date Recorded Frequency of Communication with Friends and Fami ly Not on file 08/22/2022 Alcohol Use Answer Date Recorded How often do you have a drink containing alcohol ? 4 10/25/2022 How many drinks containing a lcohol do you have on a typical day when you are drinking? 1 10/25/2022 How often do you have five or more drinks on one occasion? 0 10/25/2022 Financial Resource Strain Answer Date R ecorded Difficulty of Paying Living Expenses 3 08/08/2021 Difficulty of Paying Living Expenses Not on file 08/08/2021 Food Insecurity Answer Date Recorded Worried About Running Out of Food in the Last Ye ar 1 08/08/2021 Transportation Needs Answer Date Record ed Lack of Transportation (Medical) 1 08/08/2021 Housing Stability Answer Date Recorded Unable to Pay for Housing in the Last Year 1 08/08/2021 Sex and Gender Information Value Date Recorded Sex Assigned at Not on file Gender Identity Not on file Sexual Orientation Not on file Obstetrics History Last Filed Vital Signs Vital Sign Reading Time Taken Comments Blood Pressure 143/68 02/27/2023 10:01 AM OFFICE MAIL CLERK Pulse 50 02/27/2023 10:01 AM OFFICE MAIL CLERK Temperature 36.7 ??C (98.1 ??F) 01/17/2023 10:35 AM C DT Respiratory Rate 24 11/13/2022 2:01 PM CDT Oxygen Saturation 85% 02/27/2023 10:01 AM OFFICE MAIL CLERK Inhaled Oxygen Concentration - - Weight 132 kg (291 lb) 02/27/2023 10:01 AM OFFICE MAIL CLERK Height 185.4 cm (6' 1) 02/27/2023 10:01 AM OFFICE MAIL CLERK Body Mass Index 38.39 02/27/2023 10:01 AM OFFICE MAIL CLERK Plan of Treatment Upcoming Encounters Date Type Department Care Team (Late st Contact Info) Description 05/02/2023 9:00 AM OFFICE MAIL CLERK Appointment [facility] [address] [place] [address] 05/02/2023 11:00 AM OFFICE MAIL CLERK Office Visit [facility] [address] [place] [phone] Ricarda Bautista MD [address] [place] [address] 05/22/2023 10:00 AM OFFICE MAIL CLERK Office Visit [facility] [place] [address] [facility] [address] [place] [phone] Dave Maya MD [address] [facility] [address] [place] [address] Health Maintenance Due Date Last Done Comments Zoster (shingles) series for age 50+ (1 of 2) 12/15/1995 Tetanus booster 03/16/2018 03/16/2008, 06/08, 05/22/[address] (for lung CA) ag e 50-80 11/01/2022 11/01/2021, 04/23/2018 Medicare Wellness for age 65+ 11/08/2023, 02/22/2021, 10/29/2019, Additional history exists Depression screening for age 12+ 11/10/2023 11/09/2022, 11/08/2022, 02/22/2021, Additional history exists BMI (ht and wt on same day) for age 18+ 02/28/2024 02/27/2023, 01/17/2023, 12/28/2022, Additional history exists Tdap Completed 03/16/2008, 07/04/2006 Pneumococcal series for age 65+ Completed 05/19/2015, 06/05/2013, 03/14/2000 Hepatitis C screening for ag e 18-79 Completed 02/08/2022 COVID-19 vaccine series Completed 01/18/20, 01/10/2022, 08/23/2021, Additional history exists Influenza for age 65+ Completed 01/17/2023 , 01/10/2022, 02/22/2021, Additional history exists Medical Devices Implanted Type Area Web Development Intern Device Identifier Shelf Expiration Date Model / Serial / Lot Tissue Pericardium 0.8x8cm Phot[employer]ix Bovine - [id number] Implanted:Qty: 1 on 02/13/2022 by Kael Hernandez MD at [facility] Cv Implants Right: Groin [employer] 02/27/2022 PFP 0.8X8 / / [id number] Stent Aaa [id number] Excluder Ibc - [id number] Implanted:Qty: 1 on 02/13/2022 by Kael Hernandez MD at [facility] Right: Iliac Artery [employer] 2024 [id number] / [id number] / Stent Aaa [id number] Excluder Iic - [id number] Implanted:Qty: 1 on 02/13/2022 by Kael Hernandez MD at [facility] Right: Iliac Artery [employer] 04/20/2024 [id number] / [id number] / Procedures Procedure Name Priority Date/Time Associated Diagnosis Comments C-REACTIVE PROTEIN Routine 03/27/2023 3: 07 PM OFFICE MAIL CLERK Giant cell arteritis (HC) SEDIMENTATION RATE Routine 03/27/2023 3: 07 PM OFFICE MAIL CLERK Giant cell arteritis (HC) MAGNESIUM Routine 03/27/2023 3:07 PM OFFICE MAIL CLERK Low magnesium level BASIC METABOLIC PANEL Routine 03/27/2023 3:07 PM OFFICE MAIL CLERK Edema of right lower extremity SCAN-OPERATIVE/PROCEDU RE REPORT 01/31/2023 12:00 AM CDT from Last 3 Months Results * SEDIMENTATION RATE (03/27/2023 3:07 PM OFFICE MAIL CLERK) SEDIMENTATION RATE 15 <20 mm/hr 2022 10:18 PM OFFICE MAIL CLERK [facility] Blood BLOOD SPECIMEN / Unknown Venipuncture / Unknown 03/27/2023 3:07 PM OFFICE MAIL CLERK 03/27/2023 3:08 PM OFFICE MAIL CLERK Marcio Gonzalez MD HEMATOLOGY Performing Organization Address City/[facility]/ZIP Co de Phone Number [facility] [address] [place] [address], * (ABNORMAL) C-REACTIVE PROTEIN (03/27/2023 3:07 PM OFFICE MAIL CLERK) C-REACTIVE PROTEIN 1.0(H) <0.5 mg/dL 03/27/2023 9:11 PM OFFICE MAIL CLERK [facility] Blood BLOOD SPECIMEN / Unknown Venipuncture / Unknown 03/27/2023 3:07 PM OFFICE MAIL CLERK 03/27/2023 3:08 PM OFFICE MAIL CLERK Marcio Gonzalez MD CHEMISTRY Performing Organization Address City/[facility] Co de Phone Number [facility] [address] [place] [address], * MAGNESIUM (03/27/2023 3:07 PM OFFICE MAIL CLERK) MAGNESIUM 2.0 1.6 - 2.4 mg/dL 03/27/2023 9:11 PM OFFICE MAIL CLERK [facility] Blood BLOOD SPECIMEN / Unknown Venipuncture / Unknown 03/27/2023 3:07 PM OFFICE MAIL CLERK 03/27/2023 3:08 PM OFFICE MAIL CLERK Marcio Gonzalez MD CHEMISTRY Performing Organization Address City/[facility]/ZIP Co de Phone Number [facility] [address] [place] [address], * (ABNORMAL) BASIC METABOLIC PANEL (03/27/2023 3:07 PM OFFICE MAIL CLERK) SODIUM 139 136 - 145 mmol/L 03/27/2023 9:11 PM OFFICE MAIL CLERK [facility] POTASSIUM 4.4 3.5 - 5.1 mmol/L 03/27/2023 9:11 PM [facility] CHLORIDE 103 98 - 107 mmol/L 03/27/2023 9:11 PM [facility] CO2,TOTAL 29 22 - 29 mmol/L 03/27/2023 9:11 PM [facility] ANION GAP 7 5 - 18 03/27/2023 9:11 PM [facility] GLUCOSE 108(H) 70 - 99 mg/dL 03/27/2023 9:11 PM [facility] CALCIUM 8.8 8.8 - 10.2 mg/dL 03/27/2023 9:11 PM [facility] BUN 13 8 - 23 mg/dL 03/27/2023 9:11 PM [facility] CREATININE 0.97 0.70 - 1.20 mg/dL 03/27/2023 9:11 PM [facility] BUN/CREAT RATIO 13 10 - 20 3 9:11 PM [facility] eGFR 80(L) >90 mL/min/1.7 3m2 03/27/2023 9:11 PM [facility] Comment:As of 2021, eG FR is calculated by the CKD-EPI creatinine equation without race adjustment. ??eGFR can be influenced by muscle mass, exercise, and diet. ??The reported eGFR is an estimation only and is only applicable if the renal function is stable. Blood BLOOD SPECIMEN / Unknown Venipuncture / Unknown 03/27/2023 3:07 PM OFFICE MAIL CLERK 03/27/2023 3:08 PM OFFICE MAIL CLERK Marcio Gonzalez MD [facility] [address] [place] [address], * SCAN-OPERATIVE/PROCEDURE REPORT (01/31/2023 12:00 AM CDT) Scanner OTHER from Last 3 Months Advance Directives Documents on File Type Date Recorded Patient Commercial Artist Lettering Expl anation Treatment Guidelines 02/11/2022 Latest Code Status on File Code Status Date Activated Date Inactivated Comments Full Code 02/13/2022 1:00 PM 02/14/2022 5:39 PM Question Answer Comments Code Status Discussion: Reviewed Preferences Code Status History Code Status Date Activated Date Inactivated Comments Full Code 02/13/2022 6:05 AM 02/13/2022 12:59 PM Question Answer Comments Code Status Discussion: Unable to Assess Preferences, Provider to review later Care Teams House Wrecker Relationship Specialty Start Date End Date Marcio Gonzalez MD [address] [place] [address] PCP - General Family Practice 12/20/15
== END 2023-04-26 09:57 | disposition home or self-care (01) ==
PROVIDERS: PCP Family Medicine; Visit Provider Nurse Practitioner Family
DX: I87.311 Chronic venous hypertension (idiopathic) with ulcer of right lower extremity (principal); L97.212 Non-pressure chronic ulcer of right calf with fat layer exposed
CPT/HCPCS: 97597

== ENCOUNTER 2023-05-10 10:02 | Outpatient (CLI) | payer MEDICARE, BC, SELFPAY ==
--- OUTSIDE RECORDS SUMMARY | 2023-05-10 10:04 | XMS_ITS | Clinical Summary ---
Author Name Unknown Organization [facility] Address [place], [place] [address] Care Team Providers Care Sales And Marketing Director Name Role Phone Marcio Gonzalez MD Primary Care Provider [phone]- [phone] Allergies Active Allergy Reactions Criticality Noted Date [...] bedtime. 90 Tablet 3 3 Active fluticasone gvj-ndqinkclphvl-l ilanterol (Trelegy Ellipta) 100-62.5-25 mcg inhalerIndications :Panlobular [...] BACK PAIN 30 Tablet 0 4 Active aspirin chewable 81 mg chewable tablet Chew 81 mg by mouth once daily with a meal. 0 Active traMADoL (ULTRAM) 50 mg tabletIndications: Right [...] Word Finding Difficulties Recommended follow up at [facility]. 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 [place] [id number] [place] [address] Dave Maya MD Medication Management 03/27/2023 2:40 PM SENIOR CONTRACT SPECIALIST Orders Only [facility] [address] [place] [address] Lab, [facility]; Outside Order (Graciela Watts/) 03/27/2023 Travel 03/27/2023 Orders Only [facility] [address] [place] [address] Marcio Gonzalez MD Outside Order (Ordered by Graciela Watts) 03/27/2023 Telephone [facility] [address] [place] [address] Marcio Gonzalez MD Questions (Dr. Graciela Giron wants to discuss patients eye issues and request labwork) 03/20/2023 Refill [facility] [address] [place] [address] Marcio Gonzalez MD Refill Request (Tramadol) 02/27/2023 10:00 AM SENIOR CONTRACT SPECIALIST Office Visit [facility] [place] [address] [place] [phone] Dave Maya MD CV General Cardiology Est (3 MO F/U /DX: Paroxysmal atrial fibrillation (HC) [I48.0] ///PCP: Marcio Gonzalez MD/) 02/27/2023 Travel 02/18/2023 Refill [facility] [address] [place] [address] Marcio Gonzalez MD Refill Request (Tramadol) from Last 3 Months Immunizations Name Administration Dates Next Due COVID-19 Vaccine Spikevax (M oderna 50mcg/0.5mL) 12YO+ [id number] Formula PF 01/17/2023 COVID-19 vaccine ([employer] 30mcg/0.3mL) P F, MDV 06/22/2020,06/01/2020 Influenza, High-dose [...] Sign Reading Time Taken Comments Blood Pressure 118/54 05/02/2023 10:57 AM SENIOR CONTRACT SPECIALIST Pulse 57 05/02/2023 10:57 AM SENIOR CONTRACT SPECIALIST Temperature 36.7 ??C (98.1 ??F) 01/17/2023 1 0:35 AM CDT Respiratory Rate 18 05/02/2023 10:5 7 AM SENIOR CONTRACT SPECIALIST Oxygen Saturation 91% 05/02/2023 10: 57 AM SENIOR CONTRACT SPECIALIST Inhaled Oxygen Concentration - - Weight 130.7 kg (288 lb 1.6 oz) 024 10:57 AM SENIOR CONTRACT SPECIALIST Height 185.4 cm (6' 1) 02/27/2023 10:0 1 AM SENIOR CONTRACT SPECIALIST Body Mass Index 38.01 02/27/2023 10:01 AM SENIOR CONTRACT SPECIALIST Plan of Treatment Upcoming Encounters Date Type Department Care Team (Late st Contact Info) Description 05/22/2023 10:00 AM SENIOR CONTRACT SPECIALIST Office Visit [facility] [place] [address] [place] [phone] Dave Maya MD [address] [facility] [address] [place] [address] Health Maintenance Due Date Last Done Comments [...] 18-79 Completed 02/08/2022 COVID-19 vaccine series Completed 01/18/20 23, 01/10/2022, 08/23/2021, Additional history exists Influenza for age 65+ Completed 01/17/2023 , 01/10/2022, 02/22/2021, Additional history exists Medical Devices Implanted Type Area Hot Tar Roofer Device Identifier Shelf Expiration Date Model / Serial / Lot Tissue Pericardium 0.8x8cm [employer] - [id number] Implanted:Qty: 1 on 02/13/2022 by Kael Hernandez MD at [facility] Cv Implants Right: Groin [employer] 02/27/2022 PFP 0.8X8 / / [id number] Stent Aaa [id number] Excluder [facility] - [id number] Implanted:Qty: 1 on 02/13/2022 by Kael Hernandez MD at [facility] Right: Iliac Artery [employer] 2024 [id number] / [id number] / Stent Aaa [id number] Excluder [facility] - [id number] Implanted:Qty: 1 on 02/13/2022 by Kael Hernandez MD at [facility] Right: Iliac Artery [employer] 04/20/2024 [id number] / [id number] / Procedures Procedure Name Priority Date/Time Associated Diagnosis Comments CT ANGIO ABDOMEN PELVIS Routine 05/02/2023 9:29 AM SENIOR CONTRACT SPECIALIST 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) C-REACTIVE PROTEIN Routine 03/27/2023 3: 07 PM SENIOR CONTRACT SPECIALIST Giant cell arteritis (HC) SEDIMENTATION RATE Routine 03/27/2023 3: 07 PM SENIOR CONTRACT SPECIALIST Giant cell arteritis (HC) MAGNESIUM Routine 03/27/2023 3:07 PM SENIOR CONTRACT SPECIALIST Low magnesium level BASIC METABOLIC PANEL Routine 03/27/2023 3:07 PM SENIOR CONTRACT SPECIALIST Edema of right lower extremity from Last 3 Months Results * CT ANGIO ABDOMEN PELVIS (05/02/2023 9:29 AM SENIOR CONTRACT SPECIALIST) Anatomical Region Laterality Modality Abdomen, Pelvis Computed Tomogra phy 05/04/2023 11:3 0 AM SENIOR CONTRACT SPECIALIST Impressions 05/04/2023 11:30 AM SENIOR CONTRACT SPECIALIST 1. Reduced size of the left internal iliac artery aneurysm sac status post endovascular repair, without evidence of type 2 endoleak. 2. Chronic non-CV findings as above including AVN left hip, with degenerative changes and collapse of the femoral acetabular surface with femoral head depression. Please note that all CT scans at this facility use dose modulation, iterative reconstruction, and/or weight-based dosing when appropriate to reduce radiation dose to as low as reasonably achievable. Dictated by Nahid Parr MD @ 05/04/2023 10:43:12 AM (Electronically Signed) Narrative 05/04/2023 11:30 AM SENIOR CONTRACT SPECIALIST For Patients: ??As a result of the Cures Act, medical imaging exams and procedure reports are released immediately into your electronic medical record. ??You may view this report before your referring provider. ??If you have questions, please contact your health care provider. INDICATION: Aneurysm of right iliac artery. COMPARISON: 04/05/2022. TECHNIQUE: CT of the abdomen and pelvis without and with contrast. FINDINGS: The patient is status post endovascular repair of a right internal iliac artery aneurysm within iliac branch endograft, coiling of the anterior division, and stent grafting into the posterior division/gluteal artery. The aneurysm sac measures approximately 4.4 cm in maximum dimension, decreased from 5 cm previously. No arterial phase exam obtained. No type 2 endoleak seen. Atherosclerotic changes. 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 Small liver cyst in segment . Mildly prominent hepatic veins and mild hypertrophy of the left hepatic lobe. No splenomegaly. No suspicious pancreatic abnormality. No gallbladder distention. No intra or extrahepatic biliary ductal dilatation. The adrenal glands appear unremarkable. Moderate diffuse urinary bladder distention. Moderate prostate enlargement. Postoperative changes right groin without fluid collection. No dilated loops of bowel. No suspicious adenopathy in the abdomen or pelvis. The IVC, renal veins, portal veins, hepatic veins, splenic veins appear patent. Iliac veins inadequately opacified but appear patent. End-stage degenerative changes left hip with AVN. Degenerative changes in the spine. No evidence of hydronephrosis. ?? Procedure Note Nahid Parr MD - 05/04/2023 For Patients: As a result of the Cures Act, medical imagingexams and procedure reports are released immediately into your electronicmedical record. You may view this report before your referring provider.If you have questions, please contact your health care provider. INDICATION: Aneurysm of right iliac artery. COMPARISON: 04/05/2022. TECHNIQUE: CT of the abdomen and pelvis without and with contrast. FINDINGS: The patient is status post endovascular repair of a right internal iliacartery aneurysm within iliac branch endograft, coiling of the anteriordivision, and stent grafting into the posterior division/gluteal artery.The aneurysm sac measures approximately 4.4 cm in maximum dimension,decreased from 5 cm previously. No arterial phase exam obtained. No type 2endoleak seen. Atherosclerotic changes. Chronic appearing collapse of theright middle lobe, potentially due to chronic mucoid impaction of theright middle lobe airways stable since at least 11/01/2021, but onlypartially visualized. Small liver cyst in segment . Mildly prominent hepatic veins and mildhypertrophy of the left hepatic lobe. No splenomegaly. No suspiciouspancreatic abnormality. No gallbladder distention. No intra orextrahepatic biliary ductal dilatation. The adrenal glands appearunremarkable. Moderate diffuse urinary bladder distention. Moderateprostate enlargement. Postoperative changes right groin without fluidcollection. No dilated loops of bowel. No suspicious adenopathy in theabdomen or pelvis. The IVC, renal veins, portal veins, hepatic veins,splenic veins appear patent. Iliac veins inadequately opacified but appearpatent. End-stage degenerative changes left hip with AVN. Degenerativechanges in the spine. No evidence of hydronephrosis. IMPRESSION: 1. Reduced size of the left internal iliac artery aneurysm sac status postendovascular repair, without evidence of type 2 endoleak. 2. Chronic non-CV findings as above including AVN left hip, withdegenerative changes and collapse of the femoral acetabular surface withfemoral head depression. Please note that all CT scans at this facility use dose modulation,iterative reconstruction, and/or weight-based dosing when appropriate toreduce radiation dose to as low as reasonably achievable. Dictated by Nahid Parr MD @ 05/04/2023 10:43:12 AM (Electronically Signed) Kael Hernandez MD CT * SEDIMENTATION RATE (03/27/2023 3:07 PM SENIOR CONTRACT SPECIALIST) SEDIMENTATION RATE 15 <20 mm/hr 2022 10:18 PM SENIOR CONTRACT SPECIALIST [facility] Blood BLOOD SPECIMEN / Unknown Venipuncture / Unknown 03/27/2023 3:07 PM SENIOR CONTRACT SPECIALIST 03/27/2023 3:08 PM SENIOR CONTRACT SPECIALIST Marcio Gonzalez MD HEMATOLOGY Performing Organization Address [facility]/ZIP Co de Phone Number [facility] [address] [place] [address], * (ABNORMAL) C-REACTIVE PROTEIN (03/27/2023 3:07 PM SENIOR CONTRACT SPECIALIST) C-REACTIVE PROTEIN 1.0(H) <0.5 mg/dL 03/27/2023 9:11 PM SENIOR CONTRACT SPECIALIST [facility] Blood BLOOD SPECIMEN / Unknown Venipuncture / Unknown 03/27/2023 3:07 PM SENIOR CONTRACT SPECIALIST 03/27/2023 3:08 PM SENIOR CONTRACT SPECIALIST Marcio Gonzalez MD CHEMISTRY Performing Organization Address [facility] Co de Phone Number [facility] [address] [place] [address], [place] * MAGNESIUM (03/27/2023 3:07 PM SENIOR CONTRACT SPECIALIST) MAGNESIUM 2.0 1.6 - 2.4 mg/dL 03/27/2023 9:11 PM SENIOR CONTRACT SPECIALIST [facility] Blood BLOOD SPECIMEN / Unknown Venipuncture / Unknown 03/27/2023 3:07 PM SENIOR CONTRACT SPECIALIST 03/27/2023 3:08 PM SENIOR CONTRACT SPECIALIST Marcio Gonzalez MD CHEMISTRY Performing Organization Address [facility] Co de Phone Number [facility] [address] [place] [address], [place] * (ABNORMAL) BASIC METABOLIC PANEL (03/27/2023 3:07 PM SENIOR CONTRACT SPECIALIST) SODIUM 139 136 - 145 mmol/L 03/27/2023 9:11 PM SENIOR CONTRACT SPECIALIST [facility] POTASSIUM 4.4 3.5 - 5.1 mmol/L 03/27/2023 9:11 PM [facility] CHLORIDE 103 98 - 107 mmol/L 03/27/2023 9:11 PM [facility] CO2,TOTAL 29 22 - 29 mmol/L 03/27/2023 9:11 PM [facility] ANION GAP 7 5 - 18 03/27/2023 9:11 PM [facility] GLUCOSE 108(H) 70 - 99 mg/dL 03/27/2023 9:11 PM [facility] CALCIUM 8.8 8.8 - 10.2 mg/dL 03/27/2023 9:11 PM [facility] BUN 13 8 - 23 mg/dL 03/27/2023 9:11 PM [facility] CREATININE 0.97 0.70 - 1.20 mg/dL 03/27/2023 9:11 PM [facility] BUN/CREAT RATIO 13 10 - 20 9:11 PM [facility] eGFR 80(L) >90 mL/min/1.7 3m2 03/27/2023 9:11 PM [facility] Comment:As of 2021, eG FR is calculated by the CKD-EPI creatinine equation without race adjustment. ??eGFR can be influenced by muscle mass, exercise, and diet. ??The reported eGFR is an estimation only and is only applicable if the renal function is stable. Blood BLOOD SPECIMEN / Unknown Venipuncture / Unknown 03/27/2023 3:07 PM SENIOR CONTRACT SPECIALIST 03/27/2023 3:08 PM SENIOR CONTRACT SPECIALIST Marcio Gonzalez MD CHEMISTRY [facility] [address] [place] [address], from Last 3 Months Advance Directives Documents on File Type Date Recorded Patient Director [employer] Expl anation Treatment Guidelines 02/11/2022 Latest Code [...] Preferences, Provider to review later Care Teams Sales And Marketing Director Relationship Specialty Start Date End Date Marcio Gonzalez MD [address] [place] [address] PCP - General Family Practice 12/20/15
== END 2023-05-10 10:03 | disposition home or self-care (01) ==
LOC: WOUND 10:02
PROVIDERS: PCP Family Medicine; Visit Provider Nurse Practitioner Family
DX: I87.311 Chronic venous hypertension (idiopathic) with ulcer of right lower extremity (principal); L97.212 Non-pressure chronic ulcer of right calf with fat layer exposed; I89.0 Lymphedema, not elsewhere classified
CPT/HCPCS: 97602; G0463

== ENCOUNTER 2023-05-24 09:56 | Outpatient (CLI) | payer MEDICARE, BC, SELFPAY ==
--- OUTSIDE RECORDS SUMMARY | 2023-05-24 09:59 | XMS_ITS | Clinical Summary ---
Author Name Unknown Organization [facility] Address [place], [place] [address] Care Team Providers Care Fruit Tester Name Role Phone Marcio Gonzalez MD Primary Care Provider [phone] Allergies Active Allergy Reactions Criticality Noted Date Comments Codeine Other - Describe In Comment Field Medium 07/04/2006 doesn't tolerate Oxycodone Hallucinations High 02/13/2022 Penicillins Rash Medium 07/04/2006 Medications Medication Sig Dispensed Refills Start Date End Date Status acetaminophen (TYLENOL) 325 mg tablet Take 2 Tablets (650 mg) by mouth every 6 hours. Max acetaminophen dose: 4000mg in 24 hrs. 0 02/15/20 22 Active albuterol HFA (PRO-AIR; VENTOLIN; PROVENTIL) 90 mcg/actuation inhalerIndications :Other emphysema (HC) Inhale 2 Puffs by mouth every 4 hours if needed for Shortness of Breath 1st choice or Wheezing 2nd choice. 18 Each 5 11/09/19 23 Active potassium chloride (KLOR-CON) 20 mEq extended-release tablet (part/cryst)Indica tions:Edema of right lower extremity Take 1 Tablet (20 mEq) by mouth two times daily with meals. 180 Tablet 3 11/09/19 23 Active furosemide (LASIX) 20 mg tabletIndications: Edema of right lower extremity Take 1 Tablet (20 mg) by mouth two times daily. 180 Tablet 3 11/09/19 23 Active atorvastatin (LIPITOR) 40 mg tabletIndications: Other hyperlipidemia Take 1 Tablet (40 mg) by mouth at bedtime. 90 Tablet 3 11/09/19 23 Active fluticasone cag-dwpybxctcnnh-g ilanterol (Trelegy Ellipta) 100-62.5-25 mcg inhalerIndications :Panlobular emphysema (HC) Inhale 1 Puff by mouth once daily. 180 Each 1 11/09/19 23 Active acetic acid 0.25% 0.25 % irrigation APPLY 5 MINUTE SOAK TO WOUND EVERY OTHER DAY AND NEEDED FOLLOWING WOUND CARE ORDERS. 0 10/20/19 23 Active ammonium lactate 12% topical (LACHYDRIN) 12 % lotion APPLY TO LEGS AND FEET ONCE DAILY. 0 10/20/19 23 Active dilTIAZem (DILACOR XR; DILTIA XT) 180 mg Extended-Release capsuleIndications :Paroxysmal atrial fibrillation (HC) Take 1 Capsule (180 mg) by mouth once daily. 90 Capsule 2 11/28/19 23 Active apixaban (ELIQUIS) 5 mg tabletIndications: Paroxysmal atrial fibrillation (HC) Take 1 Tablet (5 mg) by mouth two times daily. 180 Tablet 2 11/28/19 23 Active magnesium oxide (MAG-OX 400) 400 mg tabletIndications: Low magnesium level TAKE 1 TABLET BY MOUTH EVERY DAY 90 Tablet 1 12/12/19 23 Active BiPapIndications:O bstructive sleep apnea bPAP machine [...] Frequency of use: Daily 1 Each 11 12/29/19 23 Active mirtazapine (REMERON) 7.5 mg tabletIndications: Chronic insomnia Take 1 Tablet (7.5 mg) by mouth at bedtime. Please take at 7PM 90 Tablet 2 01/25/20 23 Active aspirin chewable 81 mg chewable tablet Chew 81 mg by mouth once daily with a meal. 0 Active traMADoL (ULTRAM) 50 mg tabletIndications: Right leg pain TAKE 1 TABLET BY MOUTH DAILY NEEDED FOR WOUND PAIN OR BACK PAIN 30 Tablet 0 05/18/19 24 Active metoprolol tartrate (LOPRESSOR) 50 mg tabletIndications: Paroxysmal atrial fibrillation (HC) Take 1 Tablet (50 mg) by mouth two times daily. 180 Tablet 2 11/28/19 23 024 Discontinued(*M ed complete/Regime n complete/Level of care change) traMADoL (ULTRAM) 50 mg tabletIndications: Right leg pain TAKE 1 TABLET BY MOUTH DAILY NEEDED FOR WOUND PAIN OR BACK PAIN 30 Tablet 0 04/20/19 24 024 Discontinued Active Problems Problem Noted Date [...] Word Finding Difficulties Recommended follow up at [facility] [place] [place] St[facility]. Speech therapy, OT, and PHYSICAL [...] Problem Noted Date Diagnosed Date Resolved Date [facility] (current) use of anticoagulants 07/07/2009 09/21/2010 Overview: INR Goal Range: 1.8 - 2.5 Encounters Date Type Department Care Team Description 05/22/2023 10:00 AM QUALITY LEAD Office Visit [facility] [address] [place] [address] Dave Maya MD CV General Cardiology Est (3 mo f/u per Dr Maya /DX:I48.0 (ICD-10-CM) - Paroxysmal atrial fibrillation (HC) //PCP: Marcio Gonzalez MD/) 05/22/2023 Travel 05/18/2023 Refill [facility] [address] [place] [address] Marcio Gonzalez MD Refill Request (Tramadol) 05/02/2023 11:00 AM QUALITY LEAD Office Visit [facility] [address] [place] [address] Ricarda Bautista MD Follow Up (Yearly; Aneurysm of right internal iliac artery) 05/02/2023 8:52 AM QUALITY LEAD - 05/02/2023 11:59 PM QUALITY LEAD Hospital Encounter [facility] [address] [place] [address] Kael Hernandez MD 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) 05/02/2023 Travel 04/20/2023 Refill [facility] [address] [place] [address] Marcio Gonzalez MD Refill Request (Tramadol) 03/28/2023 Telephone [facility] [address] [place] [address] Dave Maya MD Medication Management 03/27/2023 2:40 PM QUALITY LEAD Orders Only [facility] [address] [facility] [id number] [place], [place] [facility]; Outside Order (Graciela Watts/) 03/27/2023 Travel 03/27/2023 Orders Only [facility] [address] [facility] [id number] Marcio Gonzalez MD Outside Order (Ordered by Graciela Watts) 03/27/2023 Telephone [facility] [address] [facility] [address] Marcio Gonzalez MD Questions (Dr. Graciela Giron wants to discuss patients eye issues and request labwork) 03/20/2023 Refill [facility] [address] [facility] [address] Marcio Gonzalez MD Refill Request (Tramadol) 02/27/2023 10:00 AM QUALITY LEAD Office Visit [facility] [address] [place] [address] Dave Maya MD CV General Cardiology Est (3 MO F/U /DX: Paroxysmal atrial fibrillation (HC) [I48.0] ///PCP: Marcio Gonzalez MD/) 02/27/2023 Travel from Last 3 Months Immunizations Name Administration Dates Next Due COVID-19 Vaccine Spikevax (M oderna 50mcg/0.5mL) 12YO+ [id number] Formula PF 01/17/2023 COVID-19 vaccine (Pfizer-BioNTech 30mcg/0.3mL) Yousuf Krishna MDV 06/22/2020,06/01/2020 Influenza, High-dose Inactivated 06/06/2019,12/09 Influenza, [...] age 86; ali ve at 89 in 2009 Diabetes Other none Cancer Sister 3 brain; age 69 Cancer-breast Sister 4 Relation Name Status Comments Brother 1 Alive Brother 2 Father Mother Other Sister 1 Sister 2 Alive Sister 3 Sister 4 Social History Tobacco Use Types Packs/Day Years Used Date Smoking Tobacco: Every Day Cigarettes 1 60 Smokeless Tobacco: Never Tobacco Cessation:Ready to Q uit: Not Asked; Counseling Given: Not Answered Comments:1.5 ppd 05/22/23 Alcohol Use Standard Drinks/Week Comments Yes 0 [...] Sign Reading Time Taken Comments Blood Pressure 115/58 05/22/2023 9:53 AM QUALITY LEAD Pulse 63 05/22/2023 9:53 AM QUALITY LEAD Temperature 36.7 ??C (98.1 ??F) 01/17/2023 10:35 AM C DT Respiratory Rate 18 05/02/2023 10:57 AM QUALITY LEAD Oxygen Saturation 86% 05/22/2023 9:53 AM QUALITY LEAD Inhaled Oxygen Concentration - - Weight 132 kg (291 lb) 05/22/2023 9:53 AM QUALITY LEAD Height 185.4 cm (6' 1) 05/22/2023 9:53 AM QUALITY LEAD Body Mass Index 38.39 05/22/2023 9:53 AM QUALITY LEAD Plan of Treatment Health Maintenance Due Date Last Done Comments Zoster (shingles) series for age 50+ (1 of 2) 12/15/1995 Tetanus booster 03/16/2018 03/16/2008, 06/08, 05/22/[address] (for lung CA) ag e 50-80 11/01/2022 11/01/2021, 04/23/2018 Medicare Wellness for age 65+ 11/09/2023, 02/22/2021, 10/29/2019, Additional history exists Depression screening for age 12+ 11/10/2023 11/09/2022, 11/08/2022, 02/22/2021, Additional history exists BMI (ht and wt on same day) for age 18+ 05/22/2024 05/22/2023, 02/27/2023, 01/17/2023, Additional history exists Tdap Completed 03/16/2008, 07/04/2006 Pneumococcal series for age 65+ Completed 05/19/2015, 06/05/2013, 03/14/2000 Hepatitis C screening for ag e 18-79 Completed 02/08/2022 COVID-19 vaccine series Completed 01/18/20, 01/10/2022, 08/23/2021, Additional history exists Influenza for age 65+ Completed 01/17/2023 , 01/10/2022, 02/22/2021, Additional history exists Medical Devices Implanted Type Area Embalmer/Funeral Director Device Identifier Shelf Expiration Date Model / Serial / Lot Tissue Pericardium 0.8x8cm [employer] Bovine - [id number] Implanted:Qty: 1 on 02/13/2022 by Kael Hernandez MD at [facility] Cv Implants Right: Groin [employer] 02/27/2022 PFP 0.8X8 / / [id number] Stent Aaa [id number] Excluder Ibc - [id number] Implanted:Qty: 1 on 02/13/2022 by Kael Hernandez MD at [facility] Right: Iliac Artery [employer] 2024 [id number] / [id number] / Stent Aaa [id number] Excluder Iic - [id number] Implanted:Qty: 1 on 02/13/2022 by Kael Hernandez MD at [facility] Right: Iliac Artery [employer] 04/20/2024 [id number] / [id number] / Procedures Procedure Name Priority Date/Time Associated Diagnosis Comments CT ANGIO ABDOMEN PELVIS Routine 05/02/2023 9:29 AM QUALITY LEAD 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 Reduced size of the left internal [...] AM (Electronically Signed) Narrative 05/04/2023 11:30 AM QUALITY LEAD For Patients: ??As a result of the [...] For Patients: As a result of the 21st Century Cures Act, medical imagingexams and procedure reports [...] CT * SEDIMENTATION RATE (03/27/2023 3:07 PM QUALITY LEAD) SEDIMENTATION RATE 15 <20 mm/hr 2022 10:18 PM QUALITY LEAD [facility] Blood BLOOD SPECIMEN / Unknown Venipuncture / Unknown 03/27/2023 3:07 PM QUALITY LEAD 03/27/2023 3:08 PM QUALITY LEAD Marcio Gonzalez MD HEMATOLOGY Performing Organization Address City/[facility]/ZIP Co de Phone Number [facility] [address] [place] [address], * (ABNORMAL) C-REACTIVE PROTEIN (03/27/2023 3:07 PM QUALITY LEAD) Pathologist [facility] C-REACTIVE PROTEIN 1.0(H) <0.5 mg/dL 03/27/2023 9:11 PM QUALITY LEAD [facility] Blood BLOOD SPECIMEN / Unknown Venipuncture / Unknown 03/27/2023 3:07 PM QUALITY LEAD 03/27/2023 3:08 PM QUALITY LEAD Marcio Gonzalez MD CHEMISTRY Performing Organization Address City/[facility] Co de Phone Number [facility] [address] [place] [address], * MAGNESIUM (03/27/2023 3:07 PM QUALITY LEAD) MAGNESIUM 2.0 1.6 - 2.4 mg/dL 03/27/2023 9:11 PM QUALITY LEAD [facility] Blood BLOOD SPECIMEN / Unknown Venipuncture / Unknown 03/27/2023 3:07 PM QUALITY LEAD 03/27/2023 3:08 PM QUALITY LEAD Marcio Gonzalez MD CHEMISTRY Performing Organization Address City/[facility] Co de Phone Number [facility] [address] [place] [address], * (ABNORMAL) BASIC METABOLIC PANEL (03/27/2023 3:07 PM QUALITY LEAD) SODIUM 139 136 - 145 mmol/L 03/27/2023 9:11 PM QUALITY LEAD [facility] POTASSIUM 4.4 3.5 - 5.1 mmol/L 03/27/2023 9:11 PM [facility] CHLORIDE 103 98 - 107 mmol/L 03/27/2023 9:11 PM [facility] CO2,TOTAL 29 22 - 29 mmol/L 03/27/2023 9:11 PM QUALITY LEAD [facility] ANION GAP 7 5 - 18 03/27/2023 9:11 PM QUALITY LEAD [facility] GLUCOSE 108(H) 70 - 99 mg/dL 03/27/2023 9:11 PM QUALITY LEAD [facility] CALCIUM 8.8 8.8 - 10.2 mg/dL 03/27/2023 9:11 PM [facility] BUN 13 8 - 23 mg/dL 03/27/2023 9:11 PM [facility] CREATININE 0.97 0.70 - 1.20 mg/dL 03/27/2023 9:11 PM [facility] BUN/CREAT RATIO 13 10 - 20 9:11 PM [facility] eGFR 80(L) >90 mL/min/1.7 3m2 03/27/2023 9:11 PM [facility] Comment:As of 2021, eG FR is calculated by the CKD-EPI creatinine equation without race adjustment. ??eGFR can be influenced by muscle mass, exercise, and diet. ??The reported eGFR is an estimation only and is only applicable if the renal function is stable. Blood BLOOD SPECIMEN / Unknown Venipuncture / Unknown 03/27/2023 3:07 PM QUALITY LEAD 03/27/2023 3:08 PM QUALITY LEAD Marcio Gonzalez MD [facility] [address] [place] [address], [place] from Last 3 Months Advance Directives Documents on File Type Date Recorded Patient Dental Patient Coordinator Expl anation Treatment Guidelines 02/11/2022 Latest Code [...] Preferences, Provider to review later Care Teams Fruit Tester Relationship Specialty Start Date End Date Marc[place] Gonzalez [place] [address] PCP - General Family Practice 12/20/15
== END 2023-05-24 09:57 | disposition home or self-care (01) ==
LOC: WOUND 09:56
PROVIDERS: PCP Family Medicine; Visit Provider Family Medicine
DX: I87.311 Chronic venous hypertension (idiopathic) with ulcer of right lower extremity (principal); L97.212 Non-pressure chronic ulcer of right calf with fat layer exposed; Z72.0 Tobacco use
CPT/HCPCS: 11042

== ENCOUNTER 2023-06-07 09:56 | Outpatient (CLI) | payer MEDICARE, BC, SELFPAY | END 2023-06-07 09:57 | disposition home or self-care (01) | LOC: WOUND 09:56 | PROVIDERS: PCP Family Medicine; Visit Provider Family Medicine | DX: I87.311 Chronic venous hypertension (idiopathic) with ulcer of right lower extremity (principal); L97.212 Non-pressure chronic ulcer of right calf with fat layer exposed; I89.0 Lymphedema, not elsewhere classified; Z72.0 Tobacco use | CPT/HCPCS: 11042 ==

== ENCOUNTER 2023-06-21 09:56 | Outpatient (CLI) | payer MEDICARE, BC, SELFPAY | END 2023-06-21 09:57 | disposition home or self-care (01) | LOC: WOUND 09:56 | PROVIDERS: PCP Family Medicine; Visit Provider Nurse Practitioner Family | DX: I87.311 Chronic venous hypertension (idiopathic) with ulcer of right lower extremity (principal); L97.212 Non-pressure chronic ulcer of right calf with fat layer exposed; I89.0 Lymphedema, not elsewhere classified | CPT/HCPCS: 97597 ==

== ENCOUNTER 2023-07-05 09:54 | Outpatient (CLI) | payer MEDICARE, BC, SELFPAY | END 2023-07-05 09:55 | disposition home or self-care (01) | LOC: WOUND 09:54 | PROVIDERS: PCP Family Medicine; Visit Provider Physician Assistant | DX: I87.311 Chronic venous hypertension (idiopathic) with ulcer of right lower extremity (principal); L97.212 Non-pressure chronic ulcer of right calf with fat layer exposed; I89.0 Lymphedema, not elsewhere classified; Z72.0 Tobacco use | CPT/HCPCS: 11042 ==

== ENCOUNTER 2023-07-19 09:58 | Outpatient (CLI) | payer MEDICARE, BC, SELFPAY ==
--- OUTSIDE RECORDS SUMMARY | 2023-07-19 10:01 | XMS_ITS | Clinical Summary ---
Author Name Unknown Organization [facility] Address [place], [place] [address] Care Team Providers Care Geothermal Electrical Engineer Name Role Phone Marcio Gonzalez MD Primary Care Provider [phone] Allergies Active Allergy Reactions Criticality Noted Date Comments Codeine Other - Describe In Comment Field Medium 07/04/2006 doesn't tolerate Oxycodone Hallucinations High 02/13/2022 Penicillins Rash Medium 07/04/2006 Medications Medication Sig Dispensed Refills Start Date End Date Status acetaminophen (TYLENOL) 325 mg tablet Take 2 Tablets (650 mg) by mouth every 6 hours. Max acetaminophen dose: 4000mg in 24 hrs. 0 02/14/2022 Active albuterol HFA (PRO-AIR; VENTOLIN; PROVENTIL) 90 mcg/actuation inhalerIndications:O ther emphysema (HC) Inhale 2 Puffs by mouth every 4 hours if needed for Shortness of Breath 1st choice or Wheezing 2nd choice. 18 Each 5 11/08/2022 Active potassium chloride (KLOR-CON) 20 mEq extended-release tablet (part/cryst)Indicati ons:Edema of right lower extremity Take 1 Tablet (20 mEq) by mouth two times daily with meals. 180 Tablet 3 11/08/2022 Active furosemide (LASIX) 20 mg tabletIndications:Ed rosa elena of right lower extremity Take 1 Tablet (20 mg) by mouth two times daily. 180 Tablet 3 11/08/2022 Active atorvastatin (LIPITOR) 40 mg tabletIndications:Ot her hyperlipidemia Take 1 Tablet (40 mg) by mouth at bedtime. 90 Tablet 3 11/08/2022 Active fluticasone uty-slnyscfrvqny-wpt anterol (Trelegy Ellipta) 100-62.5-25 mcg inhalerIndications:P anlobular emphysema (HC) Inhale 1 Puff by mouth once daily. 180 Each 1 11/08/2022 Active acetic acid 0.25% 0.25 % irrigation APPLY 5 MINUTE SOAK TO WOUND EVERY OTHER DAY AND NEEDED FOLLOWING WOUND CARE ORDERS. 10/19/2022 Active ammonium lactate 12% topical (LACHYDRIN) 12 % lotion APPLY TO LEGS AND FEET ONCE DAILY. 10/19/2022 Active apixaban (ELIQUIS) 5 mg tabletIndications:Pa roxysmal atrial fibrillation (HC) Take 1 Tablet (5 mg) by mouth two times daily. 180 Tablet 2 11/27/2022 Active magnesium oxide (MAG-OX 400) 400 mg tabletIndications:Lo w magnesium level TAKE 1 TABLET BY MOUTH EVERY DAY 90 Tablet 1 12/11/2022 Active BiPapIndications:Obs tructive sleep apnea bPAP machine for home use [...] Frequency of use: Daily 1 Each 11 12/28/2022 Active mirtazapine (REMERON) 7.5 mg tabletIndications:Ch ronic insomnia Take 1 Tablet (7.5 mg) by mouth at bedtime. Please take at 7PM 90 Tablet 2 01/24/2023 Active aspirin chewable 81 mg chewable tablet Chew 81 mg by mouth once daily with a meal. Active traMADoL (ULTRAM) 50 mg tabletIndications:Ri ght leg pain TAKE 1 TABLET BY MOUTH DAILY NEEDED FOR WOUND PAIN OR BACK PAIN 30 Tablet 06/18/2023 Active dilTIAZem (DILACOR XR; DILTIA XT) 180 mg Extended-Release capsuleIndications:P aroxysmal atrial fibrillation (HC) Take 1 Capsule (180 mg) by mouth once daily. 90 Capsule 06/19/2023 Active Active Problems Problem Noted Date Diagnosed Date [...] Word Finding Difficulties Recommended follow up at [facility] St[facility]. Speech therapy, OT, and PHYSICAL [...] Problem Noted Date Diagnosed Date Resolved Date long-term (current) use of anticoagulants 07/07/2009 09/21/2010 Overview: INR Goal Range: 1.8 - 2.5 Encounters Date Type Department Care Team Description 06/19/2023 Telephone [facility] [address] [facility] [address] [place] [phone] Dave Maya MD Refill Request (Diltiazem/) 06/17/2023 Telephone [facility] [address] [place] [address] Marcio Gonzalez MD Refill Request (Tramadol) 05/22/2023 10:00 AM MAINFRAME ARCHITECT Office Visit [facility] [address] [facility] [address] [place] [phone] Dave Maya MD CV General Cardiology Est (3 mo f/u per Dr Maya /DX:I48.0 (ICD-10-CM) - Paroxysmal atrial fibrillation (HC) //PCP: Marcio Gonzalez MD/) 05/22/2023 Travel 05/18/2023 Refill [facility] [address] [place] [address] Marcio Gonzalez MD Refill Request (Tramadol) 05/02/2023 11:00 AM MAINFRAME ARCHITECT Office Visit [facility] [address] [place] [phone] Ricarda Bautista MD Follow Up (Yearly; Aneurysm of right internal iliac artery) 05/02/2023 8:52 AM MAINFRAME ARCHITECT - 05/02/2023 11:59 PM MAINFRAME ARCHITECT Hospital Encounter [facility] [address] [place] [address] Kael Hernandez MD 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) 05/02/2023 Travel 04/20/2023 Refill [facility] [address] [place] [address] Marcio Gonzalez MD Refill Request (Tramadol) from Last 3 Months Immunizations Name Administration Dates Next Due COVID-19 Vaccine Spikevax (M oderna 50mcg/0.5mL) 12YO+ [id number] Formula PF 01/17/2023 COVID-19 vaccine (Kisstixx 30mcg/0.3mL) P F, MDV 06/22/2020,06/01/2020 Influenza, High-dose [...] Comments Blood Pressure 115/58 05/22/2023 9:53 AM MAINFRAME ARCHITECT Pulse 63 05/22/2023 9:53 AM MAINFRAME ARCHITECT Temperature 36.7 ??C (98.1 ??F) 01/17/2023 10:35 AM C DT Respiratory Rate 18 05/02/2023 10:57 AM MAINFRAME ARCHITECT Oxygen Saturation 86% 05/22/2023 9:53 AM MAINFRAME ARCHITECT Inhaled Oxygen Concentration - - Weight 132 kg (291 lb) 05/22/2023 9:53 AM MAINFRAME ARCHITECT Height 185.4 cm (6' 1) 05/22/2023 9:53 AM MAINFRAME ARCHITECT Body Mass Index 38.39 05/22/2023 9:53 AM MAINFRAME ARCHITECT Plan of Treatment Upcoming Encounters Date Type Department Care Team (Late st Contact Info) Description 07/27/2023 10:30 AM CDT Office Visit [facility] [address] [place] [address] Marcio Gonzalez MD [address] [place] [address] Health Maintenance Due Date Last Done Comments Zoster (shingles) series for age 50+ (1 of 2) 12/15/1995 Tetanus booster 03/16/2018 03/16/2008, 06/08, 05/22/[address] (for lung CA) ag e 50-80 11/01/2022 11/01/2021, 04/23/2018 Medicare Wellness for age 65+ 11/09/2023, 02/22/2021, 10/29/2019, Additional history exists Depression screening for age 12+ 11/10/2023 11/09/2022, 11/08/2022, 02/22/2021, Additional history exists Influenza for age 65+ 12/09/2023 01/17/2023 , 01/10/2022, 02/22/2021, Additional history exists BMI (ht and wt on same day) for age 18+ 05/22/2024 05/22/2023, 02/27/2023, 01/17/2023, Additional history exists Tdap Completed 03/16/2008, 07/04/2006 Pneumococcal series for age 65+ Completed 05/19/2015, 06/05/2013, 03/14/2000 Hepatitis C screening for ag e 18-79 Completed 02/08/2022 COVID-19 vaccine series Completed 01/18/20, 01/10/2022, 08/23/2021, Additional history exists Medical Devices Implanted Type Area Coastal Tug Mate Device Identifier Shelf Expiration Date Model / Serial / Lot Tissue Pericardium 0.8x8cm Phot[employer]ix Bovine - [id number] Implanted:Qty: 1 on 02/13/2022 by Kael Hernandez MD at [facility] Cv Implants Right: Groin [employer] 02/27/2022 PFP 0.8X8 / / [id number] Stent Aaa [id number] Excluder Ibc - [id number] Implanted:Qty: 1 on 02/13/2022 by Kael Hernandez MD at [facility] Right: Iliac Artery [employer] 2024 [id number] / [id number] / Stent Aaa [id number] Excluder Iic - [id number] Implanted:Qty: 1 on 02/13/2022 by Kael Hernandez MD at [facility] Right: Iliac Artery [employer] 04/20/2024 [id number] / [id number] / Procedures Procedure Name Priority Date/Time Associated Diagnosis Comments CT ANGIO ABDOMEN PELVIS Routine 05/02/2023 9:29 AM MAINFRAME ARCHITECT 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) ANTI HCV Routine 02/08/2022 11:20 AM CDT Need for hepatitis C screening test CT CHEST SCREENING LOW DOSE WO CONTRAST Routine 11/01/2021 2:40 PM CDT Encounter for screening for malignant neoplasm of lung in current smoker with 30 pack year history or greater Personal history of nicotine dependence from Last 3 Months or Most Recently Relevant to Health Maintenance Results * CT ANGIO ABDOMEN PELVIS (05/02/2023 9:29 AM MAINFRAME ARCHITECT) Anatomical Region Laterality Modality Abdomen, Pelvis Computed Tomogra phy 05/04/2023 11:3 0 AM MAINFRAME ARCHITECT Impressions 05/04/2023 11:30 AM MAINFRAME ARCHITECT 1. Reduced size of the left internal [...] AM (Electronically Signed) Narrative 05/04/2023 11:30 AM MAINFRAME ARCHITECT For Patients: ??As a result of the [...] (Electronically Signed) Kael Hernandez MD CT * ANTI HCV (02/08/2022 11:20 AM CDT) HEPATITIS C ANTIBODY Non-React mandie Non-React mandie 02/09/2022 2:56 PM CDT [facility] Comment:Antibodies to HCV no t detected; does not exclude the possibility of exposure to HCV. Blood BLOOD SPECIMEN / Unknown Venipuncture / Unknown 02/08/2022 11:20 AM CDT 02/08/2022 11:27 AM CDT Marcio Gonzalez MD SEND OUTS [facility] [address] [place] [address], * CT CHEST SCREENING LOW DOSE WO CONTRAST (11/01/2021 2:40 PM CDT) Anatomical Region Laterality Modality Computed Tomogra phy Impressions 11/02/2021 9:43 AM CDT 1. No significant lung nodules. 2. There is segmental progressive of volume loss in the medial segment right middle lobe which is likely of a chronic infectious or inflammatory nature. Stable lingular scarring. 3. Coronary artery small calcified plaques and mitral anulus calcification. Lung-RADS Category 1: Negative Management: LD CT chest 12 months. Please note that all CT scans at this facility use dose modulation, iterative reconstruction and/or weight-based dosing when appropriate to reduce radiation dose to as low as reasonably achievable. ?? Dictated by: Gamaliel Linares MD @11/02/2021 8:56:18 AM [email or web address] Narrative 11/02/2021 9:43 AM CDT For Patients: As a result of the Century Cures Act, medical imaging exams and procedure reports are released immediately into your electronic medical record. ??You may view this report before your referring provider. ?? If you have questions, please contact your health care provider. CT CHEST SCREENING LOW-DOSE WITHOUT CONTRAST, 11/01/2021 INDICATION: Lung cancer screening. TECHNIQUE: ?? Low-dose chest CT. COMPARISON: 04/23/2018. FINDINGS: Lung Nodules: No new suspicious lung nodules. No discrete lung nodules. Miscellaneous Lungs and Pleura: Wedge-shaped area of segmental volume loss right middle lobe medial segment. No pleural effusions. Linear scarring in the lingula. Mediastinum and Coronary Arteries: No change. There small coronary plaques in the LAD. No adenopathy. Calcification in the mitral anulus. Upper Abdomen: Unremarkable with calcified plaque in the abdominal aorta. Skeletal: No new suspicious abnormalities. Janae Ny NP CT from Last 3 Months or Most Recently Relevant to Health Maintenance Advance Directives Documents on File Type Date Recorded Patient Twisting Operator Expl anation Treatment Guidelines 02/11/2022 * Full Code (Latest Code Status on File) Date Activated Date Inactivated Comments 02/13/2022 1:00 PM 02/14/2022 5:39 PM Question Answer Comments Code Status Discussion: Reviewed Preferences * Full Code Date Activated Date Inactivated Comments 02/13/2022 6:05 AM 02/13/2022 12:59 PM Question Answer Comments Code Status Discussion: Unable to Assess Preferences, Provider to review later Care Teams Geothermal Electrical Engineer Relationship Specialty Start Date End Date [place] [address] PCP - General Family Practice 12/20/15
== END 2023-07-19 09:59 | disposition home or self-care (01) ==
LOC: WOUND 09:59
PROVIDERS: PCP Family Medicine; Visit Provider Nurse Practitioner Family
DX: I87.311 Chronic venous hypertension (idiopathic) with ulcer of right lower extremity (principal); L97.218 Non-pressure chronic ulcer of right calf with other specified severity; I89.0 Lymphedema, not elsewhere classified
CPT/HCPCS: 97602; G0463

== ENCOUNTER 2023-07-30 22:13 | Inpatient (IN) | payer MEDICARE, BC, SELFPAY ==
[2023-07-30 22:20] VITALS: BP 115/68; PULSE 80; RESP 24; TEMP 37.1; O2SAT 89
[2023-07-30] MEDS: IPRAT-ALBUT 0.5-2.5 MG/3 ML NEB 1 NEB IH (23:00)
[2023-07-30 23:02] VITALS: RESP 20
--- NOTE | 2023-07-30 23:05 | XR_ITS ---
Patient: HORACIO ALONSO Facility:?[facility] Patient ID:?[id number] Site Patient ID:?[id number]. Site :?[id number] Study:?XRay-Chest -07/30/2023 11:27:29 PM Ordering Physician:RENÉ Final Report: INDICATION: Shortness of breath. TECHNIQUE: Chest 1 view. COMPARISON: 10/12/2021. FINDINGS: Lines and tubes: None. Cardiovascular and mediastinum: Heart size and vasculature are normal in caliber and appearance. Lungs and pleural spaces: Bibasilar atelectasis. Superimposed patchy airspace opacity in the right lung base. No pleural effusion or pneumothorax. Bones and soft tissues: Unremarkable for age. IMPRESSION: Bibasilar atelectasis with superimposed patchy airspace opacity in the right lung, compatible with pneumonia in the correct clinical setting. Recommend follow-up imaging to resolution after appropriate treatment. Dictated by Ky Pierre MD @ 07/30/2023 11:51:28 PM Signed by:?Ky Pierre MD @07/30/2023 11:51:28 PM (Electronic Signature)
--- NOTE | 2023-07-30 23:09 | ED.WEAKNESS ---
HPI - Weakness General Time Seen by Provider: 22:45 Date Seen: 07/30/23 Chief complaint: Weakness Stated complaint: weakness Time Seen by Provider: 07/30/23 22:51 Source: patient, family and EMS Mode of arrival: ambulatory Limitations: no limitations History of Present Illness HPI Narrative: Patient is a 77-year-old male with a past medical history of COPD, obstructive sleep apnea, chronic respiratory failure, atrial fib/flutter with rapid ventricular response on chronic anticoagulation with Eliquis, CVA, CHF, venous stasis of bilateral lower extremities,, alcohol use disorder who presents the emergency department from home by EMS for evaluation of generalized weakness. Patient reports generalized weakness. reports that they were up early today around 5:30 a.m. and spent the day at [facility] for multiple appointments for his eye. reports they finally got home around 1700 this evening and since that time he has been very weak, fatigued, and dozing off. states that he does typically take a nap during the day today he did not nap. This evening when trying to move from a chair to his recliner where he sleeps patient was very weak, and unable to walk. Patient did slide down to the o[place] and was not able to get up. Patient did not hit his head, no loss of consciousness. Patient denies any recent illnesses however notes fever tonight. Denies any recent cough or cold-like symptoms. Patient denies any chest pain, shortness of breath, abdominal pain, nausea, vomiting, diarrhea. Patient denies any dysuria, hematuria, back pain. No lower extremity edema or calf tenderness. Patient does normally wear CPAP at bedtime and during naps. Patient typically does not wear oxygen during the day however his oxygen saturations are usually between 88-92%. Related Data Home Medications Medication Instructions Recorded Confirmed acetaminophen 500 mg capsule 500 - 1,000 mg PO Q6H PRN 10/12/21 01/31/23 albuterol sulfate 90 mcg/actuation 2 puff inhalation QID PRN 10/12/21 01/31/23 aerosol inhaler shortness of breath or wheezing atorvastatin 40 mg tablet 40 mg PO HS 10/12/21 01/31/23 fluticasone fur. 100 mcg-umeclid 1 inh inhalation DAILY 10/12/21 01/31/23 62.5 mcg-vilant 25 mcg inhalat.powder (Trelegy Ellipta) furosemide 20 mg tablet 20 mg PO BID@09,16 10/12/21 01/31/23 potassium chloride 20 mEq 20 meq PO BIDWM 10/12/21 01/31/23 tablet,extended release tramadol 50 mg tablet 50 mg PO Q12H PRN pain 10/12/21 01/31/23 Previous Rx's Medication Instructions Recorded apixaban 5 mg tablet (Eliquis) 5 mg PO BID #60 tabs 11/10/22 digoxin 250 mcg (0.25 mg) tablet 250 mcg PO DAILY #30 tabs 11/10/22 diltiazem HCl 180 mg 180 mg PO DAILY #30 caps 11/10/22 capsule,extended release 24 hr, controlled (DILT-XR) magnesium oxide 400 mg PO DAILY #30 caps 11/10/22 metoprolol tartrate 50 mg tablet 50 mg PO BID #60 tabs 11/10/22 Allergies Allergy/AdvReac Type Severity Reaction Status Date / Time codeine Allergy Mild Verified 10/12/21 11:39 oxycodone Allergy Hallucinati Verified 01/29/23 12:33 ng Penicillins Allergy Rash Verified 10/12/21 11:39 dust Allergy Mild Uncoded 10/12/21 11:39 Review of Systems Narrative: General: No fevers or chills, +generalized we Skin: No rash or diaphoresis Ears/Nose/Throat: No rhinorrhea or nasal congestion Respiratory: No cough or shortness of breath Cardiovascular: No chest pain or palpitations Gastrointestinal: No abdominal pain, nausea, vomiting, or diarrhea Genitourinary: No urinary frequency, hematuria, or dysuria Musculoskeletal: No arthralgias or myalgias Neurologic: No numbness or focal weakness Hematologic/Lymphatic/Immunologic: No leg swelling, no easy bruising/bleeding Endocrine: No polyuria/polydipsia [facility] Medical History (Updated 07/31/23 @ 01:11 by Yesy Carlos MD) Atrial fibrillation and flutter ?I48.91 - Unspecified atrial fibrillation (ICD-10) ?I48.92 - Unspecified atrial flutter (ICD-10) Alcohol use disorder ?F10.90 - Alcohol use, unspecified, uncomplicated (ICD-10) Aneurysm of right internal iliac artery ?I72.3 - Aneurysm of iliac artery (ICD-10) Recurrent major depressive disorder ?F33.9 - Major depressive disorder, recurrent, unspecified (ICD-10) Hepatic steatosis ?K76.0 - Fatty (change of) liver, not elsewhere classified (ICD-10) Chronic left-sided low back pain ?M54.50 - Low back pain, unspecified (ICD-10) ?G89.29 - Other chronic pain (ICD-10) Erectile dysfunction ?N52.9 - Male erectile dysfunction, unspecified (ICD-10) Degenerative joint disease (DJD) of lumbar spine ?M47.816 - Spondylosis without myelopathy or radiculopathy, lumbar region (ICD-10) Adenomatous colon polyp ?D12.6 - Benign neoplasm of colon, unspecified (ICD-10) Chronic heart failure with preserved ejection fraction (HFpEF) ?I50.32 - Chronic diastolic (congestive) heart failure (ICD-10) Tobacco abuse disorder ?Z72.0 - Tobacco use (ICD-10) Venous stasis ulcer ?I83.009 - Varicose veins of unspecified lower extremity with ulcer of unspecified site (ICD-10) ?L97.909 - Non-pressure chronic ulcer of unspecified part of unspecified lower leg with unspecified severity (ICD-10) Venous stasis dermatitis of both lower extremities ?I87.2 - Venous insufficiency (chronic) (peripheral) (ICD-10) Obesity ?E66.9 - Obesity, unspecified (ICD-10) Lung nodule ?R91.1 - Solitary pulmonary nodule (ICD-10) Chest pain ?R07.9 - Chest pain, unspecified (ICD-10) Cellulitis ?L03.90 - Cellulitis, unspecified (ICD-10) CVA (cerebral vascular accident) ?I63.9 - Cerebral infarction, unspecified (ICD-10) Obstructive sleep apnea ?G47.33 - Obstructive sleep apnea (adult) (pediatric) (ICD-10) Chronic respiratory failure ?J96.10 - Chronic respiratory failure, unspecified whether with hypoxia or hypercapnia (ICD-10) Pneumonia ?J18.9 - Pneumonia, unspecified organism (ICD-10) COPD (chronic obstructive pulmonary disease) ?J44.9 - Chronic obstructive pulmonary disease, unspecified (ICD-10) Surgical History (Updated 11/08/22 @ 18:01 by Jose Turcios MD) Status post left knee replacement ?Z96.652 - Presence of left artificial knee joint (ICD-10) Status post right knee replacement ?Z96.651 - Presence of right artificial knee joint (ICD-10) History of colonoscopy ?Z98.890 - Other specified postprocedural states (ICD-10) Family History (Updated 11/08/22 @ 18:08 by Jose Turcios MD) Sister Breast cancer Brain cancer Father Skin cancer Brother Heart disease Mother Heart disease Other Diabetes Social History (Updated 11/08/22 @ 18:06 by Jose Turcios MD) Narrative: . Lives with . Continues to smoke a minimum 1 pack per day of cigarettes. At least a 60 pack-year history of smoking. Drinks a minimal of 2-3 servings of vodka daily. Denies alcohol withdrawal symptoms. Denies any other street or recreational drugs. Does not want to be kept alive as a vegetable. On 11/08/2022 he tells me he wants a DNR DNI resuscitation status, which is and son support. Primary care physician is Dr. Marcio Gonzalez. What is your current living situation?: I presently have a place to live Problems where you live: no known problems Problems where you live details: N/A In the past 12 months, utilities in danger of being shut off: no In past 12 months, lack of transportation kept you from medical appts, meetings, work, or getting things needed for daily living: no In the past 12 mos, have been you worried that your food would run out before you had money to buy more?: never true In the past 12 mos, the food you bought just didn't last and you didn't have money to buy more?: never true Highest level of school completed/degree received: 12th grade, no diploma Smoking Status: Current every day smoker What tobacco products do you use: cigarettes Smoking packs per day: 1 Smoking cigarettes per day: 20.0 Years smoked: 60 Smoking pack-years: 60.00 Do you use any of these nicotine containing products: None Second hand tobacco smoke exposure: No How often do you have a drink containing alcohol: 4 or more times a week Alcohol type: hard liquor Alcohol type details: 2-3 drinks/day How many standard drinks containing alcohol do you have on a typical day: 3 or 4 How often do you have six or more drinks on one occasion: Daily or almost daily AUDIT-C Alcohol total score: 9 Non-prescribed substance use: marijuana (any form) Non-prescribed substance use details: pot occassionally Caffeine: Yes How often does anyone, including family, friends and others, physically hurt you: never How often does anyone, including family, friends and others, insult or talk down to you: never How often does anyone, including family, friends and others, threaten you with harm: never How often does anyone, including family, friends and others, scream or curse at you: never Gender Identity: male service: Yes Exam Narrative: Exam Narrative: General: Afebrile, appears weak, mild distress HEENT: Normocephalic, atraumatic, conjunctiva normal. MMM Neck: non-tender, supple Cardio: regular rate. regular rhythm Resp: Normal work of breathing, no respiratory distress, lungs with coarse breath sounds throughout Chest/Back: no visual signs of trauma, no CVA tenderness Abdomen: soft, non distension, no tenderness, no peritoneal signs Neuro: alert and fully oriented. CN II-XII grossly intact. Grossly normal strength and sensation in all extremities. MSK: no deformities. Normal range of motion, b/l lower extremities with chronic venous stasis Integumentary/Skin: no rash visualized, normal color Psych: normal affect, normal behavior Const: Vital Signs, click to edit/add: Vital Signs - 24 hr 07/30/23 22:20 07/30/23 23:02 Temperature 98.8 F Pulse Rate [Pulse Oximeter] 80 Respiratory Rate 24 20 Blood Pressure [Le ft Upper Arm] 115/68 Pulse Oximetry 89 Oxygen Delivery Me thod OxyMask Oxygen Flow Rate 5 Course Course ED Course: Patient is a 77-year-old male with a past medical history of COPD, obstructive sleep apnea, chronic respiratory failure, atrial fib/flutter with rapid ventricular response on chronic anticoagulation with Eliquis, CVA, CHF, venous stasis of bilateral lower extremities,, alcohol use disorder who presents the emergency department from home by EMS for evaluation of generalized weakness. Upon arrival patient appears ill, weak, nontoxic appearing, afebrile, no distress. Patient hypoxic upon arrival however improvement of oxygen saturations once placed on 5 L OxyMask. Per patient normally wears CPAP during naps and at bedtime. Patient has normal oxygen saturation 88-92% on room air. Differential diagnosis includes but is not limited to infectious (pneumonia versus UTI) versus sepsis versus CHF exacerbation versus pleural effusion versus ACS among others. Upon arrival patient was placed on cardiac monitoring, EKG performed. I reviewed EKG which demonstrates normal sinus rhythm with a ventricular rate of 93 beats per minute, normal axis, QTC 445, with no acute ischemic change. Patient currently denies any chest pain, shortness of breath. Lungs with coarse breath sounds bilaterally. Patient was treated with DuoNeb upon arrival to the ED. I reviewed comprehensive labs which are remarkable for leukocytosis with white blood cell count 14.36, hemoglobin 10.4, initial VBG with a pH is 7.38, pCO2 of 51.3, lactic 1.0. No acute metabolic or electrolyte abnormality, creatinine 1, no transaminitis. Viral testing negative for flu, COVID, RSV. I personally reviewed and interpreted CXR which demonstrates patchy airspace opacity in right lung. Given patients coarse breath sounds, leukocytosis, hypoxia, concern for pneumonia. I discussed results with patient will treat with ceftriaxone, doxycycline. I Reviewed urinalysis which demonstrates cloudy brown appearance with protein, blood, nitrate and leukocyte esterase positive. Patient on antibiotics for pneumonia, will continue to follow up urine culture the and adjust antibiotics if needed. On re-evaluation patient continues to be resting comfortably, sleeping, no distress. I discussed results with patient, and given patient's generalized weakness, fatigue, pneumonia, and hypoxia will plan on admission. I discussed patient management with the hospitalist team who agrees with the plan. FINDINGS: Lines and tubes: None. Cardiovascular and mediastinum: Heart size and vasculature are normal in caliber and appearance. Lungs and pleural spaces: Bibasilar atelectasis. Superimposed patchy airspace opacity in the right lung base. No pleural effusion or pneumothorax. Bones and soft tissues: Unremarkable for age. IMPRESSION: Bibasilar atelectasis with superimposed patchy airspace opacity in the right lung, compatible with pneumonia in the correct clinical setting. Recommend follow-up imaging to resolution after appropriate treatment. Vital Signs Vital signs: Initial Vital Signs Temperature 98.8 F 07/30/23 22:20 Temperature Source Temporal Artery Scan 07/30/23 22:20 Pulse Rate 80 07/30/23 22:20 Pulse Rhythm Regular 07/30/23 22:20 Respiratory Rate 07/30/23 22:20 Blood Pressure 115/68 07/30/23 22:20 Blood Pressure Mean 83 07/30/23 22:20 Blood Pressure Position Supine 07/30/23 22:20 Pulse Oximetry 89 07/30/23 22:20 Oxygen Delivery Method OxyMask 07/30/23 22:20 Oxygen Flow Rate 5 07/30/23 22:20 Vital Signs Temperature 98.8 F 07/30/23 22:20 Pulse Rate 80 07/30/23 22:20 Respiratory Rate 24 07/30/23 22:20 Blood Pressure 115/68 07/30/23 22:20 Pulse Oximetry 89 07/30/23 22:20 Oxygen Delivery Method OxyMask 07/30/23 22:20 Oxygen Flow Rate 5 07/30/23 22:20 Temperature 98.8 F 07/30/23 22:20 Pulse Rate 80 07/30/23 22:20 Respiratory Rate 20 07/30/23 23:02 Blood Pressure 115/68 07/30/23 22:20 Pulse Oximetry 89 07/30/23 22:20 Oxygen Delivery Method OxyMask 07/30/23 22:20 Oxygen Flow Rate 5 07/30/23 22:20 Medications Administered Medications: Generic Name Dose Route Start Last Admin Trade Name Kayleen PRN Reason Stop Dose Admin Albuterol/Ipratropium 1 neb 07/31/23 00:15 07/30/23 23:00 Iprat-Albut 0.5-2.5 Mg/3 Ml Neb IH 07/31/23 00:16 1 neb ONCE ONE Administration Doxycycline Hyclate 100 mg 07/31/23 09:00 07/31/23 00:49 Doxycycline Hyclate 100 Mg PO 100 mg BID BROOKE Administration Ceftriaxone Sodium 1 gm/ 100 mls @ 200 mls/hr 07/31/23 00:17 07/31/23 00:48 Sodium Chloride IVPB 07/31/23 00:18 200 mls/hr ONCE ONE Administration MDM - Weakness Lab Data Labs: Lab Results 07/30/23 07/30/23 07/30/23 Range/Units 22:21 23:04 23:44 WBC 14.36 H (4.50-11.00) K/uL RBC 3.36 L (4.30-5.90) m/uL Hgb 10.4 L (13.5-17.5) gm/dL Hct 32.7 L (37.0-53.0) % MCV 97 (80-100) fL MCH 31 (26-34) pg MCHC 32 (32-36) gm/dL RDW Coeff of Alejandra 15.3 (11.5-15.5) % Plt Count 193 (140-440) K/uL Neut % (Auto) 74.5 H (42.0-72.0) % Lymph % (Auto) 10.9 L (20-44) % [place] % (Auto) 11.8 H (0.0-11.0) % Eos % (Auto) 0.3 (0.0-7.0) % Baso % (Auto) 0.7 (0.0-3.0) % Neut # (Auto) 10.70 H (1.7-7.0) K/uL Lymph # (Auto) 1.60 (0.90-2.90) K/uL [place] # (Auto) 1.70 H (0.00-0.90) K/UL Eos # (Auto) 0.00 (0.00-0.50) K/uL Baso # (Auto) 0.10 (0.00-0.30) K/uL Abs Immat Gran (auto) 0.30 (0.00-0.30) K/uL Imm/Tot Granulo (auto) 1.8 % VBG pH 7.38 (7.32-7.43) VBG pCO2 51 H (40-50) mmHG VBG pO2 61.5 H (25-47) mmHG VBG HCO3 31 H (21-28) mmol/L Sodium 137 (135-149) mmol/L Potassium 4.4 (3.6-5.1) mmol/L Chloride 104 (96-114) mmol/L Carbon Dioxide 30 (20-32) mmol/L Anion Gap 3 L (7-15) mEq/L BUN 19 (7-30) mg/dL Creatinine 1.0 (0.5-1.5) mg/dL Estimated GFR 78 ml/min Glucose 139 H (60-115) mg/dL Lactate 1.0 (0.5-1.9) mmol/L Calcium 8.5 (8.4-10.6) mg/dL Total Bilirubin 0.7 (0.1-1.5) mg/dL AST 23 (12-35) U/L ALT 14 (4-50) U/L Alkaline Phosphatase 113 (40-150) U/L Troponin I 0.02 (0.01-0.04) ng/mL NT-Pro-B Natriuret Pep 418 pg/mL Total Protein 8.0 (6.0-8.3) g/dL Albumin 4.0 (3.3-5.0) g/dL Urine Color Brown A (Yellow) Urine Appearance Cloudy A (Clear) Urine pH 5.5 (5.0-8.5) Ur Specific [place] 1.025 (1.000-1.030) Urine Protein 3+ A (Negative) Urine Glucose (UA) Negative (Negative) Urine Ketones Negative (Negative) Urine Blood 1+ A (Negative) Urine Nitrite Positive A (Negative) Urine Bilirubin Negative (Negative) Urine Urobilinogen 0.2 (0.2-1.0) Ur Leukocyte Esterase 1+ A (Negative) Urine RBC 0-2 (0-2) Urine WBC 2-5 (0-5) Ur Squamous Epith Cells Few (None-Few) Urine Bacteria Moderate A (None) SARS-CoV-2 (PCR) Negative SARS-CoV-2 (Negative) Influenza Type A (PCR) Negative PCR FLU A (Negative) Influenza Type B (PCR) Negative PCR FLU B (Negative) RSV (PCR) Negative PCR RSV (Negative) Discharge Plan Discharge Clinical Impression: Weakness, Acute on chronic respiratory failure with hypoxemia, Pneumonia Patient Disposition: Admitted As Inpatient
--- OUTSIDE RECORDS SUMMARY | 2023-07-30 23:24 | XMS_ITS | Clinical Summary ---
Author Name Unknown Organization [facility] Address [address] [place] [address] Care Team Providers Care Motor Vehicle Examiner Name Role Phone Unavailable Primary Care Provider Unavailabl e Source Comments Patient records contain information from all sites at [facility]. For routine questions regarding patient records, call [phone] during business hours, M-F 8:00 AM - 5:00 PM Central Time. Record requests for emergency care only can be directed to [phone] at any time.[facility] Allergies Active Allergy Reactions Criticality Noted Date Comments Codeine GI intolerance Medium 07/04/2006 rash doesn't ??tolerate Hydrocodone-Acetaminop hen Hallucinations 10/18/2011 Mold Other (see comments) 09/03/2014 Breathing Morphine GI intolerance 10/16/2011 ineffective for pain control Oxycodone Hallucinations High 02/13/2022 Penicillins Rash Medium 07/04/2006 Medications Medication Sig Dispensed Refills Start Date End Date Status traMADoL (ULTRAM) 50 mg tablet Take 50 mg by mouth daily. 07/27/2023 Active acetaminophen (TYLENOL) 325 mg tablet Take 650 mg by mouth every 6 (six) hours. 02/14/2022 Active acetic acid 0.25 % irrigation (sterile) Apply 1 Application topically daily. 10/19/2022 Active albuterol 90 mcg/actuation inhaler Inhale 2 puffs every 4 (four) hours as needed. 11/08/2022 Active ammonium lactate (LAC-HYDRIN) 12 % lotion Apply 1 Application topically daily. Active Eliquis 5 mg tablet Take 5 mg by mouth 2 (two) times a day. Active aspirin 81 mg chewable tablet Chew 81 mg daily. Ac tive atorvastatin (LIPITOR) 40 mg tablet Take 40 mg by mouth at bedtime. Active brimonidine (ALPHAGAN) 0.2 % ophthalmic solution Administer 1 drop into both eyes 2 (two) times a day. Active Trelegy Ellipta 100-62.5-25 mcg inhaler 1 puff daily. Active furosemide (LASIX) 20 mg tablet Take 20 mg by mouth 2 (two) times a day. Active latanoprost (XALATAN) 0.005 % ophthalmic solution Administer 1 drop into both eyes at bedtime. 07/07/2023 Active predniSONE (DELTASONE) 20 mg tablet Take 3 tablets (60 mg total) by mouth daily. 90 tablet 07/30/2023 08/29/2023 Active Hospital, Clinic, or Other Facility Administered Medication Ordered Dose Route Frequency Start Date End Date Status sodium chloride 0.9 % injection 10 mL 10 mL IV As needed 07/25/2023 Active fluorescein 100 mg/mL (10 %) injection 500 mg (AK-FLUOR/FLUORESCEIN) 500 mg IV Once in imaging 07/25/2023 Active Active Problems Problem Noted Date Diagnosed Date Arteritis Temporal 07/30/2023 Encounters Date Type Department Care Team Description 07/30/2023 3:20 PM CDT Ancillary Procedure Department of Ophthalmology Arrived 07/30/2023 3:15 PM CDT Comprehensive Visit Department of Ophthalmology in [place], [place] [address] [place] [phone] Red Gallego M.D. Ischemia Retina (Primary Dx); Arteritis Temporal (HCC); Glaucoma Neovascular; Intraocular Lens Implant Status Post; Occlusion Carotid Artery Left 07/30/2023 2:10 PM CDT Ancillary Procedure Department of Ophthalmology in [place], [place] [address] [place] [phone] Red Gallego M.D. 07/30/2023 1:25 PM CDT Ancillary Procedure Department of Ophthalmology Arrived 07/30/2023 12:00 PM CDT Ancillary Procedure Department of Ophthalmology in [place], [place] [address] [place] [phone] Red Gallego M.D. Neuropathy Optic 07/30/2023 11:15 AM CDT Ancillary Procedure Department of Ophthalmology in [place], [place] [address] [place] [phone] Red Gallego M.D. Neuropathy Optic 07/30/2023 10:45 AM CDT Ancillary Procedure Department of Ophthalmology Arrived 07/30/2023 9:40 AM CDT Ancillary Procedure Department of Ophthalmology Arrived 07/30/2023 9:30 AM CDT Ancillary Procedure Department of Ophthalmology in [place], [place] [address] [place] [phone] Red Gallego M.D. Neuropathy Optic 07/30/2023 7:50 AM CDT Hospital Encounter Department of Laboratory Medicine and Pathology, [facility] in [place], [place] [address] [place] [phone] Red Gallego M.D. Loss Visual; Defect Visual Field 07/30/2023 Clinical Communication Department of Ophthalmology in [address] [phone] Provider, Unknown Appt Request 07/30/2023 Ancillary Procedure Department of Ophthalmology Arrived 07/30/2023 Episode Changes Department of Ophthalmology in [place], [place] [address] [place] [phone] Giana Mancilla 07/29/2023 1:27 PM CDT - 07/29/2023 11:59 PM CDT [facility] [place] [place] [address] [place] [phone] Red Gallego M.D. Loss Visual Discharge Disposition: Home or Self Care 07/25/2023 Orders Only Department of Ophthalmology in [address] [phone] Red Gallego M.D. Loss Visual (Primary Dx); Defect Visual Field 07/25/2023 Clinical Communication Department of Ophthalmology in [address] [phone] Red Gallego M.D. Appt Request 07/24/2023 2:40 PM CDT - 07/24/2023 11:59 PM CDT [facility] [place] [place] [address] [place] [phone] Red Gallego M.D. Neuropathy Optic Discharge Disposition: Home or Self Care 07/03/2023 Orders Only Department of Ophthalmology in [place], [place] [address] [place] [address] Red Gallego M.D. 05/18/2023 Clinical Communication Department of Ophthalmology in [place], [place] [address] [place] [address] Red Gallego M.D. Pre-visit Testing Orders from Last 3 Months Social History Tobacco Use Types Packs/Day Years Used Date Smoking Tobacco: Unknown [facility] Utilities Answer Date Recorded In the past 12 months has th e electric, gas, oil, or water company threatened to shut off services in your home? No 07/25/2023 Exercise Vital Sign Answer Date Recorde d On average, how many days pe r week do you engage in moderate to strenuous exercise (like a brisk walk)? 1 day 07/25/2023 On average, how many minutes do you engage in exercise at this level? 20 min 07/25/2023 Hunger Vital Sign Answer Date Recorded Within the past 12 months, y ou worried that your food would run out before you got the money to buy more. Never true 07/25/19 24 Within the past 12 months, t he food you bought just didn't last and you didn't have money to get more. Never true 07/25/2023 PRAPARE - Transportation Answer Date Re corded In the past 12 months, has l ack of transportation kept you from medical appointments or from getting medications? No 07/25/2023 In the past 12 months, has l ack of transportation kept you from meetings, work, or from getting things needed for daily living? Patient declined 07/25/2023 Nutrition Answer Date Recorded Nutrition: EVOO Fat Source Unknown 07/24 On average, how many serving s of fruits and vegetables do you eat per day (serving size is equal to 1 cup or approximately the size of a tennis ball)? 3-5 07/25/2023 Dental Answer Date Recorded Dental: Regular Dentist No 07/25/19 Employment Answer Date Recorded Employment status Retired 07/25/2023 Housing Stability Answer Date Recorded What is your living situation today? I have [facility] place to live 07/25/2023 Sex and Gender Information Value Date Recorded Sex Assigned at Male 07/25/2023 8:23 PM CDT Gender Identity Male 07/25/2023 8:23 PM CDT Sexual Orientation Straight 07/25/2023 8: 23 PM CDT Last Filed Vital Signs Vital Sign Reading Time Taken Comments Blood Pressure 121/75 10/26/2011 7:39 AM CDT NIBP - Value from [employer]. Pulse 68 07/24/2023 4:11 PM CDT Temperature - - Respiratory Rate 16 07/24/2023 4:11 PM CDT Oxygen Saturation 93% 07/24/2023 4:1 1 PM CDT Inhaled Oxygen Concentration - - Weight 118 kg (261 lb 3.9 oz) 10/23/2011 9:02 AM CDT Height 189 cm (6' 2.41) 10/23/2011 9:0 2 AM CDT Body Mass Index 33.17 10/23/2011 9:02 AM CDT Plan of Treatment Upcoming Encounters Date Type Department Care Team (Late st Contact Info) Description 08/03/2023 Hospital Encounter [facility] [address] [place] [phone] Andi Harmon M.D., D.D.S. [address] [place] [address] Scheduled Procedures Name Priority Associated Diagnoses Date/Ti me BIOPSY ARTERY TEMPORAL Arteritis Temporal (HCC) Health Maintenance Due Date Last Done Comments Hepatitis C Screening 1945 Zoster Vaccines (1 of 2) 12/15/1995 DTaP,Tdap,and Td Vaccines (3 - Td or Tdap) 03/16/2018 03/16/2008, 07/04/2006 Depression Screening (Annual PHQ-2) 04/09/2023 Fall Risk Screen (Annual) 04/09/2023 COVID-19 Vaccine (2022-2 4 season) 2023 01/17/2023, 01/10/2022, 08/23/2021, Additional history exists Potassium Level 03/27/2024 03/27/2023, 11/2021, 02/13/2022, Additional history exists Sodium Level 03/27/2024 03/27/2023, 11/2021, 02/13/2022, Additional history exists Creatinine Level (Kidney Fun ction Test) 07/29/2024 07/30/2023, 03/27/2023, 02/14/2022, Additional history exists Pneumococcal vaccine (65+ years) Completed 05/19/2015, 06/05/2013, 03/14/2000 Abdominal Aortic Aneurysm (A AA) Screen Discontinued 07/30/2018, 01/11/2016 Influenza Vaccine Completed 01/17/2023, , 02/22/2021, Additional history exists Medical Devices Implanted Type Area Clinical Care Manager Device Identifier Shelf Expiration Date Model / Serial / Lot J J Sig Patella Oval 41 - [id number] [id number] Implanted:Qty: 1 on 10/23/2011 Knee Implant Other/Legacy - See Implant Description [employer] Description:Device Manufactu rer - [employer]. Body Location - Other. Left. Device Status Text - [id number] [id number]. Depuy-Insert Stabilized Sz 5 12.5mm - Briones [id number] Implanted:Qty: 1 on 10/23/2011 Knee Implant Other/Legacy - See Implant Description [employer] Description:Device Manufactu rer - [employer]. Body Location - Other. Left. Device Status Text - [id number] [id number]. Depuy-Tib Tray Mod Cement Cocr Sz5 - Briones [id number] Implanted:Qty: 1 on 10/23/2011 Knee Implant Other/Legacy - See Implant Description [employer] Description:Device Manufactu rer - [employer]. Body Location - Other. Left. Device Status Text - [id number] [id number]. Sigma Post Stab.W Lug Fem Sz 6 Lt - Briones [id number] Implanted:Qty: 1 on 10/23/2011 Knee Implant Other/Legacy - See Implant Description [employer] Description:Device Manufactu rer - [employer]. Body Location - Other. Left. Device Status Text - KNEE [id number]. Cement Bone Large - Briones [id number] Implanted:Qty: 2 on 10/23/2011 Misc Other [place] Description:Device Manufactu rer - Beverly Amarilis.. Device Status Text - [id number]. Procedures Procedure Name Priority Date/Time Associated Diagnosis Comments OPHTHALMOLOGY IMAGE EXAM Routine 07/30/2023 3:20 PM CDT OPTICAL COHERENCE TOMOGRAPHY (OCT) - OPTIC NERVE - OU - BOTH EYES Routine 07/30/2023 1:36 PM CDT Neuropathy Optic OPHTHALMOLOGY IMAGE EXAM Routine 07/30/2023 1:25 PM CDT FUNDUS PHOTOS - OU - BOTH EYES Routine 07/30/2023 12:42 PM CDT Neuropathy Optic OPHTHALMOLOGY IMAGE EXAM Routine 07/30/2023 10:45 AM CDT AUTOMATED VF - EXTENDED - OU - BOTH EYES Routine 07/30/2023 10:04 AM CDT Neuropathy Optic OPHTHALMOLOGY IMAGE EXAM Routine 07/30/2023 9:40 AM CDT CBC WITH DIFFERENTIAL, B Routine 07/30/2023 8:13 AM CDT Loss Visual Defect Visual Field C-REACTIVE PROTEIN (CRP), S/P Routine 07/30/2023 8:13 AM CDT Loss Visual SEDIMENTATION RATE, B Routine 07/30/2023 8:13 AM CDT Loss Visual CREATININE WITH EGFR, S/P Routine 07/30/2023 8:13 AM CDT Loss Visual OPHTHALMOLOGY IMAGE EXAM Routine 07/30/2023 12:[address] HEAD NECK ANGIOGRAM WITH IV CONTRAST RAD - Routine (most inpatients and all outpatients) 07/29/2023 2:33 PM CDT Loss Visual MR EXAMINATION NOT PERFORMED RAD - Routine (most inpatients and all outpatients) 07/24/2023 4:10 PM CDT Neuropathy Optic MR EXAMINATION NOT PERFORMED RAD - Routine (most inpatients and all outpatients) 07/24/2023 4:10 PM CDT Neuropathy Optic EXTI BASIC METABOLIC PANEL, S/P Routine 03/27/2023 3:07 PM ANIMAL CRUELTY INVESTIGATOR CT ABDOMEN PELVIS WITH IV CONTRAST RAD - Routine (most inpatients and all outpatients) 07/30/2018 11:17 AM CDT from Last 3 Months or Most Recently Relevant to Health Maintenance Results * Optical Coherence Tomography (OCT)-Ophthalmology Image Exam (07/30/2023 3:20 PM CDT) Only the most recent of5 resultswithin the time period is included. 07/30/2023 3:16 PM CDT Narrative IIMS - 07/30/2023 3:20 PM CDT This order has been created and auto-finalized to support the import of images acquired without order. The clinical documentation to support these images can be found on the encounter that produced images. Provider Not In System IMG NON RAD IMAGI NG PROCEDURES Performing Organization Address [facility] Co de Phone Number IICA NA * Optical Coherence Tomography - Optic Nerve - OU - Both Eyes (07/30/2023 1:36 PM CDT) Narrative OPHTHALMOLOGY IMAGING EXAM - 07/30/2023 1:41 PM CDT OCT device used was [employer] . Notes MJC - Patient would not allow us to complete exam. Managed to get most scans done on the right eye. No left eye scans. The interpretation report for this test can be found in the Testing section of the chart note dated 07/30/2023 Red Gallego M.D. OPHTH TOMOGRAPHY Performing Organization Address [facility]/ZIP Co de Phone Number OPHTHALMOLOGY IMAGING EXAM * Fundus Photos - OU - Both Eyes (07/30/2023 12:42 PM CDT) Narrative OPHTHALMOLOGY IMAGING EXAM - 07/30/2023 1:16 PM CDT Right Eye Fundus photo type obtained is Color. Left Eye Fundus photo type obtained is Color. Notes The interpretation report for this test can be found in the Testing section of the chart note dated 07/30/2023 Rde Gallego M.D. OPHTH PHOTOGRAPHY Performing Organization Address [facility] de Phone Number OPHTHALMOLOGY IMAGING EXAM * Automated VF - Extended - OU - Both Eyes (07/30/2023 10:04 AM CDT) Narrative OPHTHALMOLOGY IMAGING EXAM - 07/30/2023 11:43 AM CDT Right Eye Automated visual field device used was [employer]iss. Strategy was ELIER. Threshold was 24-2. Eyelid was untaped. Left Eye Eyelid was untaped. Notes Patient struggled to stay in place and keep eye open during testing. He refused to test the left and said it's a waste of time'. I tried to talk him into doing the Castro on the left eye, but he refused and said he had a headache and did not want anymore testing The interpretation report for this test can be found in the Testing section of the chart note dated 07/30/2023 Red Gallego M.D. OPHTH VISUAL FIEL D Performing Organization Address [facility] de Phone Number OPHTHALMOLOGY IMAGING EXAM * (ABNORMAL) Sedimentation Rate (07/30/2023 8:13 AM CDT) Sedimentation Rate, B 42(H) 3 - 28 mm/h 07/30/2023 10:11 AM CDT DTL Blood (Blood, Venous) 07/30/2023 8:13 AM CDT 07/30/2023 8:41 AM CDT Red Gallego M.D. LAB BLOOD ADD-ON Performing Organization Address [facility] Co de Phone Number [facility] [address] [place], [place] [address] DTL [address] [address] * (ABNORMAL) CBC with Differential, Blood (07/30/2023 8:13 AM CDT) Hemoglobin 10.9(L) 13.2 - 16.6 g/dL 07/30/2023 9:29 AM CDT DTL Hematocrit 35.0(L) 38.3 - 48.6 % 07/30/2023 9:29 AM CDT DTL Erythrocytes 3.54(L) 4.35 - 5.65 x10(12)/L 07/30/2023 9:29 AM CDT DTL MCV 98.9(H) 78.2 - 97.9 fL 07/30/2023 9:29 AM CDT DTL RBC Distrib Width 15.4(H) 11.8 - 14.5 % 07/30/2023 9:29 AM CDT DTL Platelet Count 207 135 - 317 x10(9)/L 07/30/2023 9:29 AM CDT DTL Leukocytes 12.8(H) 3.4 - 9.6 x10(9)/L 07/30/2023 9:29 AM CDT DTL Neutrophils 8.92(H) 1.56 - 6.45 x10(9)/L 07/30/2023 9:29 AM CDT DHPM Lymphocytes 2.02 0.95 - 3.07 x10(9)/L 07/30/2023 9:29 AM CDT DTL Monocytes 1.60(H) 0.26 - 0.81 x10(9)/L 07/30/2023 9:29 AM CDT DTL Eosinophils 0.14 0.03 - 0.48 x10(9)/L 07/30/2023 9:29 AM CDT DTL Basophils 0.07 0.01 - 0.08 x10(9)/L 07/30/2023 9:29 AM CDT DTL Blood (Blood, Venous) 07/30/2023 8:13 AM CDT 07/30/2023 8:41 AM CDT Red Gallego M.D. LAB BLOOD ADD-ON [facility] [address] [place] [address], [facility] [address] [place] [address] [facility] [address] [place] [address] * (ABNORMAL) CRP (C-Reactive Protein) (07/30/2023 8:13 AM CDT) C-Reactive Protein (CRP), S 33.6(H) <5.0 mg/L 07/30/2023 9:14 AM CDT DTL Blood (Blood, Venous) 07/30/2023 8:13 AM CDT 07/30/2023 8:52 AM CDT Red Gallego M.D. LAB BLOOD ADD-ON Performing Organization Address [facility]/ZIP Co de Phone Number [facility] [address] [place] [address], [facility] [address] [place] [address] * Creatinine with Estimated GFR (07/30/2023 8:13 AM CDT) Pathologist [facility] Creatinine 1.15 0.74 - 1.35 mg/dL 07/30/2023 9:14 AM CDT DTL Estimated GFR (eGFR) 66 >=60 mL/min/BSA 07/30/2023 9:14 AM CDT DTL Comment: Estimated GFR calculated using the 2020 CKD_EPI creatinine equation. Blood (Blood, Venous) 07/30/2023 8:13 AM CDT 07/30/2023 8:52 AM CDT Red Gallego M.D. LAB BLOOD ADD-ON [facility] [address] [place] [address], [facility] [address] [place] [address] * CT Head Neck Angiogram with IV Contrast (07/29/2023 2:33 PM CDT) Anatomical Region Laterality Modality Head and Neck, Neuroradiolog y RST LOS, Neuroradiology NOLVIA PERDOMO, Neuroradiology KYLIE LOS N/A Computed Tomography, Compute d Tomography 07/29/2023 2:33 PM CDT Impressions 07/30/2023 10:32 AM CDT 1. 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 The left internal carotid artery is reconstituted intracranially at the level of the cavernous segment, where there is multifocal moderate stenosis. 2. 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 Narrative 07/30/2023 10:32 AM CDT EXAM: CT HEAD NECK ANGIOGRAM WITH IV CONTRAST Including 3D image post-processing with or without AI assistance. COMPARISON: None FINDINGS: Common origin of the brachiocephalic and left common carotid arteries, an anatomic variant. Multifocal atherosclerotic changes including calcifications. On the left, partially calcified atherosclerotic plaque causes occlusion of the left internal carotid artery, just distal to its origin. On the right, partially calcified atherosclerotic plaque at the carotid bulb does not cause significant proximal ICA stenosis. Tortuosity of the mid cervical right ICA. Patent codominant vertebral arteries, with the right slightly larger than the left. Intracranially, atherosclerotic changes at both carotid siphons, including calcifications. The left internal carotid artery is reconstituted in the cavernous segment where there is moderate multifocal narrowing. Fusiform prominence of the left greater than right A2 segments, distal left A1 segment, and perhaps the anterior communicating artery, with robust right A1 segment and hypoplastic proximal left A1 segment. No convincing aneurysm here or elsewhere. Widely patent basilar artery with both vertebral arteries contributing to it. Hypoplastic/not visualized bilateral intracranial aneurysm posterior communicating arteries. Inflammatory changes in the paranasal sinuses, greatest in the right maxillary sinuses, where they include mucosal thickening, frothy secretions, and osteitis, the latter reflecting chronic sinusitis. Focal defect in the posterior aspect of the inferior wall of the maxillary sinus/maxillary alveolus, may reflect an antral oral fistula. Procedure Note Gaetano Lin M.D. - 07/30/2023 EXAM: CT HEAD NECK ANGIOGRAM WITH IV CONTRAST Including 3D image post-processing with or without AI assistance. COMPARISON: None FINDINGS: Common origin of the brachiocephalic and left common carotidarteries, an anatomic variant. Multifocal atherosclerotic changesincluding calcifications. On the left, partially calcified atheroscleroticplaque causes occlusion of the left internal carotid artery, just distal to its origin. On the right,partially calcified atherosclerotic plaque at the carotid bulb does notcause significant proximal ICA stenosis. Tortuosity of the mid cervicalright ICA. Patent codominant vertebral arteries, with the right slightly larger than the left. Intracranially, atherosclerotic changes at both carotid siphons, includingcalcifications. The left internal carotid artery is reconstituted in thecavernous segment where there is moderate multifocal narrowing. Fusiformprominence of the left greater than right A2 segments, distal left A1 segment, and perhaps the anteriorcommunicating artery, with robust right A1 segment and hypoplasticproximal left A1 segment. No convincing aneurysm here or elsewhere. Widely patent basilar artery with both vertebral arteries contributing toit. Hypoplastic/not visualized bilateral intracranial aneurysm posteriorcommunicating arteries. Inflammatory changes in the paranasal sinuses, greatest in the rightmaxillary sinuses, where they include mucosal thickening, frothysecretions, and osteitis, the latter reflecting chronic sinusitis. Focaldefect in the posterior aspect of the inferior wall of the maxillary sinus/maxillary alveolus, may reflect an antral oralfistula. IMPRESSION: 1. Chronic occlusion of the left internal carotid artery, just distal toits origin. The left internal carotid artery is reconstitutedintracranially at the level of the cavernous segment, where there ismultifocal moderate stenosis. 2. 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 Red LOGAN CT PROCEDURES * MR Examination Not Performed (07/24/2023 4:10 PM CDT) Only the most recent of2 resultswithin the time period is included. Anatomical Region Laterality Modality N/A Magnetic Resonan ce Impressions 07/24/2023 5:53 PM CDT MRI exam not performed due to patient discomfort and claustrophobia. Narrative 07/24/2023 5:53 PM CDT EXAM: ??MR EXAMINATION NOT PERFORMED, MR EXAMINATION NOT PERFORMED Procedure Note Randal Gage M.D. - 07/24/2023 EXAM: MR EXAMINATION NOT PERFORMED, MR EXAMINATION NOT PERFORMED IMPRESSION: MRI exam not performed due to patient discomfort and claustrophobia. Red Gallego M.D. IMG MRI PROCEDURE S from Last 3 Months or Most Recently Relevant to Health Maintenance
--- OUTSIDE RECORDS SUMMARY | 2023-07-30 23:24 | XMS_ITS | Encounter Summary ---
Author Name Unknown Organization [facility] Address [address] [place] [address] Care Team Providers Care Natural Resource Economist Name Role Phone Unavailable Primary Care Provider Unavailabl e Encounter Details Date Type Department Care Team (Late st Contact Info) Description 07/30/2023 1:25 PM CDT Ancillary Procedure Department of Ophthalmology Arrived Social History Tobacco Use Types Packs/Day Years Used Date Smoking Tobacco: Unknown [facility] Utilities Answer Date Recorded In the past 12 months has th e electric, gas, oil, or water [employer] threatened to shut off services in your [...] Date Recorded Dental: Regular Dentist No 07/25/19 24 Employment Answer Date Recorded Employment status Retired 07/25/2023 Housing Stability Answer Date Recorded What is your living situation today? I have a [facility] place to live 07/25/2023 Sex and Gender Information Value Date Recorded Sex Assigned at Male 07/25/2023 8:23 PM CDT Gender Identity Male 07/25/2023 8:23 PM CDT Sexual Orientation Straight 07/25/2023 8: 23 PM CDT documented as of this encounter Plan of Treatment Upcoming Encounters Date Type Department Care Team (Late st Contact Info) Description 08/03/2023 Hospital Encounter [facility] OR [address] [place] [address] Andi Harmon M.D., D.D.S. [address] [place] [address] Scheduled Procedures Name Priority Associated Diagnoses Date/Ti me BIOPSY ARTERY TEMPORAL Arteritis Temporal (HCC) documented as of this encounter Procedures Procedure Name Priority Date/Time Associated Diagnosis Comments OPHTHALMOLOGY IMAGE EXAM Routine 07/30/2023 1:25 PM CDT documented in this encounter Results * Optical Coherence Tomography (OCT)-Ophthalmology Image Exam (07/30/2023 1:25 PM CDT) 07/30/2023 1:21 PM CDT Narrative IIMS - 07/30/2023 1:35 PM CDT This order has been created and auto-finalized to support the import of images acquired without order. The clinical documentation to support these images can be found on the encounter that produced images. Provider Not In System IMG NON RAD IMAGI NG PROCEDURES IIMS NA documented in this encounter Visit Diagnoses Not on filedocumented in this encounter
--- OUTSIDE RECORDS SUMMARY | 2023-07-30 23:24 | XMS_ITS | Encounter Summary ---
Author Name Unknown Organization [facility] Address [address] [place] [address] Care Team Providers Care Staff Radiation Therapist Name Role Phone Unavailable Primary Care Provider Unavailabl e Encounter Details Date Type Department Care Team (Late st Contact Info) Description 07/30/2023 Ancillary Procedure Department of Ophthalmology Arrived Social History Tobacco Use Types Packs/Day Years Used Date Smoking Tobacco: Unknown [facility] Utilities Answer Date Recorded In the [...] your living situation today? I have a [facility] place to live 07/25/2023 Sex and Gender Information Value Date Recorded Sex Assigned at Male 07/25/2023 8:23 PM CDT Gender Identity Male 07/25/2023 8:23 PM CDT Sexual Orientation Straight 07/25/2023 8: 23 PM CDT documented as of this encounter Plan of Treatment Upcoming Encounters Date Type Department Care Team (Late st Contact Info) Description 08/03/2023 Hospital Encounter [facility] MAIN OR [address] [place] [address] Andi Harmon M.D., D.D.S. [address] [place] [address] Scheduled Procedures Name Priority Associated Diagnoses Date/Ti me BIOPSY ARTERY TEMPORAL Arteritis Temporal (HCC) documented as of this encounter Procedures Procedure Name Priority Date/Time Associated Diagnosis Comments OPHTHALMOLOGY IMAGE EXAM Routine 07/30/2023 12:00 AM CDT documented in this encounter Results * Eyes Color-Ophthalmology Image Exam (07/30/2023 12:00 AM CDT) Narrative IIMS - 07/30/2023 12:43 PM CDT This order has been created [...]
--- OUTSIDE RECORDS SUMMARY | 2023-07-30 23:24 | XMS_ITS ---
Author Name Unknown Organization [facility] Address [address] [place] [address] Care Team Providers Care Senior Climate Advisor Name Role Phone Unavailable Unavailable Unavailable Surgery Details Not on file Complications Check Surgery Details section. Procedure Estimated Blood Loss Check Surgery Details section. Procedure Findings Check Surgery Details section. Procedure Specimens Taken Check Surgery Details section.
--- OUTSIDE RECORDS SUMMARY | 2023-07-30 23:24 | XMS_ITS | Encounter Summary ---
Author Name Unknown Organization [facility] Address [address] [place] [address] Care Team Providers Care Oil Burner Repairer Name Role Phone Unavailable Primary Care Provider Unavailabl e Reason for Visit * Reason Onset Date Comments Appt Request 07/30/2023 Encounter Details Date Type Department Care Team (Latest Contact Info) Description 07/30/2023 Clinical Communication Department of Ophthalmology in [place], [place] [address] [place] [address] Provider, Unknown Appt Request Social History Tobacco Use Types Packs/Day Years Used Date Smoking Tobacco: Unknown [facility] Utilities Answer Date Recorded In [...] your living situation today? I have a [facility] place to live 07/25/2023 Sex and Gender Information Value Date Recorded Sex Assigned at Male 07/25/2023 8:23 PM CDT Gender Identity Male 07/25/2023 8:23 PM CDT Sexual Orientation Straight 07/25/2023 8: 23 PM CDT documented as of this encounter Plan of Treatment Upcoming Encounters Date Type Department Care Team (Late st Contact Info) Description 08/03/2023 Hospital Encounter [facility] MAIN OR [address] [place] [address] Andi Harmon M.D., D.D.S. [address] [place] [address] Scheduled Procedures Name Priority Associated Diagnoses Date/Ti me BIOPSY ARTERY TEMPORAL Arteritis Temporal (HCC) documented as of this encounter Visit Diagnoses Not on filedocumented in this encounter
--- OUTSIDE RECORDS SUMMARY | 2023-07-30 23:24 | XMS_ITS | Referral Summary ---
Author Name Unknown Organization [facility] Address [address] [place] [address] Care Team Providers Care Protector Plate Attacher Name Role Phone Unavailable Primary Care Provider Unavailabl e Source Comments Patient records contain information from all sites at [facility]. For routine questions regarding patient records, call [phone] during business hours, M-F 8:00 AM - 5:00 PM Central Time. Record requests for emergency care only can be directed to [phone] at any time.[facility] Encounters Date Type Department Care Team Description 07/30/2023 3:20 PM CDT Ancillary Procedure Department of Ophthalmology Arrived 07/30/2023 Clinical Communication Department of Ophthalmology in [place], [place] [address] [place] [address] Provider, Unknown Appt Request 07/30/2023 1:25 PM CDT Ancillary Procedure Department of Ophthalmology Arrived 07/30/2023 Ancillary Procedure Department of Ophthalmology Arrived 07/30/2023 Episode Changes Department of Ophthalmology in [place], [place] [address] [place] [address] Giana Mancilla 07/30/2023 10:45 AM CDT Ancillary Procedure Department of Ophthalmology Arrived 07/30/2023 9:40 AM CDT Ancillary Procedure Department of Ophthalmology Arrived 07/30/2023 7:50 AM CDT Hospital Encounter Department of Laboratory Medicine and Pathology, [facility], in [place], [place] [address] [place] [address] Red Gallego M.D. Loss Visual; Defect Visual Field 07/30/2023 2:10 PM CDT Ancillary Procedure Department of Ophthalmology in [place], [place] [address] [place] [phone] Red Gallego M.D. 07/30/2023 12:00 PM CDT Ancillary Procedure Department of Ophthalmology in [place], [place] [address] [place] [phone] Red Gallego M.D. Neuropathy Optic 07/30/2023 9:30 AM CDT Ancillary Procedure Department of Ophthalmology in [place], [place] [address] [place] [phone] Red Gallego M.D. Neuropathy Optic 07/30/2023 11:15 AM CDT Ancillary Procedure Department of Ophthalmology in [place], [place] [address] [place] [phone] Red Gallego M.D. Neuropathy Optic 07/30/2023 3:15 PM CDT Comprehensive Visit Department of Ophthalmology in [place], [place] [address] [place] [phone] Red Gallego M.D. Ischemia Retina (Primary Dx); Arteritis Temporal (HCC); Glaucoma Neovascular; Intraocular Lens Implant Status Post; Occlusion Carotid Artery Left 07/29/2023 1:27 PM CDT - 07/29/2023 11:59 PM CDT [facility] [place] [place] [address] [place] [phone] Red Gallego M.D. Loss Visual Discharge Disposition: Home or Self Care 07/25/2023 Orders Only Department of Ophthalmology in [address] [address] Red Gallego M.D. Loss Visual (Primary Dx); Defect Visual Field 07/25/2023 Clinical Communication Department of Ophthalmology in [address] [address] Red Gallego M.D. Appt Request 07/24/2023 2:40 PM CDT - 07/24/2023 11:59 PM CDT [facility] [place] [place] [address] [place] [phone] Red Gallego M.D. Neuropathy Optic Discharge Disposition: Home or Self Care 07/03/2023 Orders Only Department of Ophthalmology in [place], [place] [address] [place] [address] Red Gallego M.D. 05/18/2023 Clinical Communication Department of Ophthalmology in [place], [place] [address] [place] [address] Red Gallego M.D. Pre-visit Testing Orders from Last 3 Months Allergies Active Allergy Reactions Criticality Noted Date [...] Noted Date Diagnosed Date Arteritis Temporal 07/30/2023 Social History Tobacco Use Types Packs/Day Years Used Date Smoking Tobacco: Unknown [facility] Utilities Answer Date Recorded In the past 12 months has th e [employer], gas, oil, or water company threatened to [...] money to buy more. Never true 07/25/19 Within the past 12 months, t he [...] your living situation today? I have a [facility] place to live 07/25/2023 Sex and [...] Hospital Encounter [facility] MAIN OR [address] [place] [phone] Andi Harmon M.D., D.D.S. [address] [place] [address] Scheduled Procedures Name Priority Associated Diagnoses Date/Ti me BIOPSY ARTERY TEMPORAL Arteritis Temporal (HCC) Medical Devices Implanted Type Area Delivery Motorcycle Driver Device Identifier Shelf Expiration Date Model / Serial / Lot J J Sig Patella Oval 41 - Briones [id number] Implanted:Qty: 1 on 10/23/2011 Knee Implant Other/Legacy - See Implant Description [employer] Description:Device Manufactu rer - [employer]. Body Location - Other. Left. Device Status Text - [id number] [id number]. Depuy-Insert Stabilized Sz 5 12.5mm - Briones [id number] Implanted:Qty: 1 on 10/23/2011 Knee Implant Other/Legacy - See Implant Description [employer] Description:Device Manufactu rer - [employer]. Body Location - Other. Left. Device Status Text - [id number] [id number]. Depuy-Tib Tray Mod Cement Cocr Sz5 - Briones [id number] Implanted:Qty: 1 on 10/23/2011 Knee Implant Other/Legacy - See Implant Description [employer] Description:Device Manufactu rer - [employer]. Body Location - Other. Left. Device Status Text - [id number] [id number]. Sigma Post Stab.W Lug Fem Sz 6 Lt - Briones [id number] Implanted:Qty: 1 on 10/23/2011 Knee Implant Other/Legacy - See Implant Description [employer] Description:Device Manufactu rer - [employer]. Body Location - Other. Left. Device Status Text - [id number] [id number]. Cement Bone Large - Briones [id number] Implanted:Qty: 2 on 10/23/2011 Misc Other [place] Description:Device Manufactu rer - Beverly Amarilis.. Device [...] METABOLIC PANEL, S/P Routine 03/27/2023 3:[address] ABDOMEN PELVIS WITH IV CONTRAST RAD [...] NON RAD IMAGI NG PROCEDURES IIMS NA * Optical Coherence Tomography - Optic Nerve - OU - Both Eyes (07/30/2023 1:36 PM CDT) Narrative OPHTHALMOLOGY IMAGING EXAM - 07/30/2023 1:41 PM CDT OCT device used was [employer]rus . Notes [facility] - Patient would not allow us to complete exam. Managed to get most scans done on the right eye. No left eye scans. The interpretation report for this test can be found in the Testing section of the chart note dated 07/30/2023 Red Gallego M.D. OPHTH TOMOGRAPHY Performing Organization Address [facility]/[place] de Phone Number OPHTHALMOLOGY IMAGING EXAM * [...] note dated 07/30/2023 Red Gallego M.D. OPHTH PHOTOGRAPHY Performing Organization Address [facility] de Phone Number OPHTHALMOLOGY IMAGING EXAM * [...] Red Gallego M.D. OPHTH VISUAL FIEL D OPHTHALMOLOGY IMAGING EXAM * (ABNORMAL) Sedimentation Rate (07/30/2023 8:13 AM CDT) [facility] Sedimentation Rate, B 42(H) 3 - 28 mm/h 07/30/2023 10:11 AM CDT DTL Blood (Blood, Venous) 07/30/2023 8:13 AM CDT 07/30/2023 8:41 AM CDT Red Gallego M.D. LAB BLOOD ADD-ON Performing Organization Address City/[facility]/ZIP Co de Phone Number [facility] [address] [place], [place] [phone] [place] [address] [facility] [address] [place] [address] * (ABNORMAL) CBC with Differential, Blood (07/30/2023 8:13 AM CDT) [facility] Hemoglobin 10.9(L) 13.2 - 16.6 g/dL 07/30/2023 [...] M.D. LAB BLOOD ADD-ON Performing Organization Address City/[facility] Co de Phone Number [facility] [address] [place] [address] * (ABNORMAL) CRP (C-Reactive Protein) (07/30/2023 8:13 AM CDT) [facility] C-Reactive Protein (CRP), S 33.6(H) <5.0 mg/L 07/30/2023 9:14 AM CDT DTL Blood (Blood, Venous) 07/30/2023 8:13 AM CDT 07/30/2023 8:52 AM CDT Red Gallego M.D. LAB BLOOD ADD-ON Performing Organization Address City/[facility]/ZIP Co de Phone Number [facility] [address] [place] [address] * Creatinine with Estimated GFR (07/30/2023 8:13 AM CDT) [facility] Creatinine 1.15 0.74 - 1.35 mg/dL 07/30/2023 9:14 AM CDT DTL Estimated GFR (eGFR) 66 >=60 mL/min/BSA 07/30/2023 9:14 AM CDT DTL Comment: Estimated GFR calculated using the 2020 CKD_EPI creatinine equation. Blood (Blood, Venous) 07/30/2023 8:13 AM CDT 07/30/2023 8:52 AM CDT Red Gallego M.D. LAB BLOOD ADD-ON [facility] [address] [place] [address], [place] DTL [facility] [address] [place] [address] * CT Head Neck Angiogram with IV Contrast (07/29/2023 2:33 PM CDT) Anatomical Region Laterality Modality Head and Neck, Neuroradiolog y RST LOS, Neuroradiology ARKassandra [facility], Neuroradiology [facility] N/A Computed Tomography, Compute d Tomography 07/29/2023 [...] right maxillary sinusitis, active on chronic. Red Gallego M.D. IMG CT PROCEDURES * MR Examination Not Performed [...]
--- OUTSIDE RECORDS SUMMARY | 2023-07-30 23:24 | XMS_ITS | Encounter Summary ---
Author Name Unknown Organization [facility] Address [address] [place] [address] Care Team Providers Care Electrician Third Name Role Phone Unavailable Primary Care Provider Unavailabl e Encounter Details Date Type Department Care Team (Late st Contact Info) Description 07/30/2023 3:20 PM CDT Ancillary Procedure Department of Ophthalmology Arrived Social History Tobacco Use Types Packs/Day Years Used Date Smoking Tobacco: Unknown [facility] Utilities Answer Date Recorded In the past 12 months has th e electric, gas, oil, or water [employer] threatened to shut off services in your [...] Encounter [facility] MAIN OR [address] [place] [address] Andi Harmon M.D., D.D.S. [address] [place] [address] Scheduled Procedures Name Priority Associated Diagnoses Date/Ti me BIOPSY ARTERY TEMPORAL Arteritis Temporal (HCC) documented as of this encounter Procedures Procedure Name Priority Date/Time Associated Diagnosis Comments OPHTHALMOLOGY IMAGE EXAM Routine 07/30/2023 3:20 PM CDT documented in this encounter Results * Optical Coherence Tomography (OCT)-Ophthalmology Image Exam (07/30/2023 3:20 PM CDT) 07/30/2023 3:16 PM CDT Narrative IIMS - [...]
--- OUTSIDE RECORDS SUMMARY | 2023-07-30 23:25 | XMS_ITS | Encounter Summary ---
Author Name Unknown Organization [facility] Address [address] [place] [address] Care Team Providers Care Equipment Operator/Laborer Name Role Phone Unavailable Primary Care Provider Unavailabl e Reason for Visit * Reason Onset Date Comments Pre-visit Testing Orders 05/18/2023 Encounter Details Date Type Department Care Team (Latest Contact Info) Description 05/18/2023 Clinical Communication Department of Ophthalmology in [place], [place] [address] [place] [address] Red Gallego M.D. [address] [place] [address] Pre-visit Testing Orders Social History Tobacco Use Types Packs/Day Years Used Date Smoking Tobacco: Unknown Nutrition Answer Date Recorded Nutrition: EVOO Fat Source Unknown 06/16 Nutrition: Servings of Fruits/Vegetables per Day Not on file 06/16/2020 Dental Answer Date Recorded Dental: Regular Dentist Unknown 06/17/19 21 Sex and Gender Information Value Date Recorded Sex Assigned at Male 07/25/2023 8:23 PM CDT Gender Identity Male 07/25/2023 8:23 PM CDT Sexual Orientation Straight 07/25/2023 8: 23 PM CDT documented as of this encounter Miscellaneous Notes * Addendum Note - Mitesh Jacobs, C.O.A. - 07/04/2023 3:53 PM CDTAddended by: MITESH JACOBS on: 07/04/2023 03:53 PM Modules accepted: Orders * Telephone Encounter - Mitesh Jacobs C.O.A. - 07/04/2023 3:53 PM CDT Orders placed documented in this encounter Plan of Treatment Upcoming Encounters Date Type Department Care Team (Late st Contact Info) Description 08/03/2023 Hospital Encounter [facility] MAIN OR [address] [place] [phone] Andi Harmon M.D., D.D.S. [address] [place] [address] Scheduled Procedures Name Priority Associated Diagnoses Date/Ti me BIOPSY ARTERY TEMPORAL Arteritis Temporal (HCC) documented as of this encounter Results * Optical Coherence Tomography - Optic Nerve - OU - Both Eyes (07/30/2023 1:36 PM CDT) Narrative OPHTHALMOLOGY IMAGING EXAM - 07/30/2023 1:41 PM CDT OCT device used was [employer]rus . Notes [facility] - Patient would not allow us to complete exam. Managed to get most scans done on the right eye. No left eye scans. The interpretation report for this test can be found in the Testing section of the chart note dated 07/30/2023 Red Gallego M.D. OPHTH TOMOGRAPHY OPHTHALMOLOGY IMAGING EXAM * Fundus Photos - [...] Gallego M.D. OPHTH PHOTOGRAPHY Performing Organization Address [facility] de Phone Number OPHTHALMOLOGY IMAGING EXAM * [...] chart note dated 07/30/2023 Red Gallego M.D. 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
--- OUTSIDE RECORDS SUMMARY | 2023-07-30 23:25 | XMS_ITS | Encounter Summary ---
Author Name Unknown Organization [facility] Address [address] [place] [address] Care Team Providers Care Roofing Superintendent Name Role Phone Unavailable Primary Care Provider Unavailabl e Reason for Referral * MRI/CAT/PET Scan (Routine) - Closed Specialty Diagnoses / Procedures Referred By Avelinaac alan Referred To Contact Radiology Diagnoses Loss Visual Procedures CT Head Neck Angiogram with IV Contrast Red Gallego M.D. [address] [place] [address] [facility] Referral ID Status Reason Start Date Expiration Date Visits Re quested Visits Authorized [id number] Closed 07/25/2023 07/24/2024 1 1 Reason for Visit * MRI/CAT/PET Scan (Routine) - Closed Specialty Diagnoses / Procedures Referred By Janeth phillips Referred To Contact Radiology Diagnoses Loss Visual Procedures CT Head Neck Angiogram with IV Contrast Red Gallego M.D. [address] [place] [address] [facility] Referral ID Status Reason Start Date Expiration Date Visits Re quested Visits Authorized [id number] Closed 07/25/2023 07/24/2024 1 1 Encounter Details Date Type Department Care Team (Latest Contact Info) Description 07/29/2023 1:27 PM CDT - 07/29/2023 11:59 PM CDT Hospital Encounter Department of Radiology, [facility], in [place], [place] [address] [place] [address] Red Gallego M.D. [address] [place] [address] Loss Visual Discharge Disposition: Home or Self Care Social History Tobacco Use Types Packs/Day Years Used Date Smoking Tobacco: Unknown [facility] Utilities Answer Date Recorded In the past 12 months has e electric, gas, oil, or water company [...] your living situation today? I have a [facility] place to live 07/25/2023 Sex and Gender Information Value Date Recorded Sex Assigned at Male 07/25/2023 8:23 PM CDT Gender Identity Male 07/25/2023 8:23 PM CDT Sexual Orientation Straight 07/25/2023 8: 23 PM CDT documented as of this encounter Medications at Time of Discharge Medication Sig Dispensed Refills Start Date End Date acetaminophen (TYLENOL) 325 mg tablet Take 650 mg by mouth every 6 (six) hours. 02/14/2022 acetic acid 0.25 % irrigation (sterile) Apply 1 Application topically daily. 10/19/2022 albuterol 90 mcg/actuation inhaler Inhale 2 puffs every 4 (four) hours as needed. 11/08/2022 latanoprost (XALATAN) 0.005 % ophthalmic solution Administer 1 drop into both eyes at bedtime. 07/07/2023 traMADoL (ULTRAM) 50 mg tablet Take 50 mg by mouth daily. 07/27/2023 documented as of this encounter Plan of Treatment Upcoming Encounters Date Type Department Care Team (Late st Contact Info) Description 08/03/2023 Hospital Encounter [facility] [address] [place] [address] Andi Harmon M.D., D.D.S. [address] [place] [address] Scheduled Procedures Name Priority Associated Diagnoses Date/Ti me BIOPSY ARTERY TEMPORAL Arteritis Temporal (HCC) documented as of this encounter Procedures Procedure Name Priority Date/Time Associated Diagnosis Comments CT HEAD NECK ANGIOGRAM WITH IV CONTRAST RAD - Routine (most inpatients and all outpatients) 07/29/2023 2:33 PM CDT Loss Visual documented in this encounter Results * CT Head Neck Angiogram with IV Contrast (07/29/2023 2:33 PM CDT) Anatomical Region Laterality Modality Head and Neck, Neuroradiolog y RST LOS, Neuroradiology [facility] LOS, Neuroradiology [place] N/A Computed Tomography, Compute d Tomography [...] active on chronic. Red LOGAN CT PROCEDURES documented in this encounter Visit Diagnoses Diagnosis Loss Visual documented in this encounter Administered Medications Inactive Administered Medications - up to 3 most recent administrations Medication Order MAR Action Action Date Dose Rate Site iohexoL 350 mg iodine/mL solution 1-200 mL (OMNIPAQUE) 1-200 mL, intravenous, Once in imaging, contrast, Starting on 07/29/23 at 1331, For 1 dose, Imaging Protocol Orders, Dose per Radiant Medication Guidelines Given 07/29/2023 2:10 PM CDT 98 mL sodium chloride (PF) 0.9 % injection 1-100 mL 1-100 mL, intravenous, Once, On 07/29/23 at 1400, For 1 dose, Imaging Protocol Orders, Dose per Radiant Medication Guidelines Given 07/29/2023 2:10 PM CDT 35 mL documented in this encounter
--- OUTSIDE RECORDS SUMMARY | 2023-07-30 23:25 | XMS_ITS | Encounter Summary ---
Author Name Unknown Organization [facility] Address [address] [place] [address] Care Team Providers Care Access Consultant Name Role Phone Unavailable Primary Care Provider Unavailabl e Encounter Details Date Type Department Care Team (Late st Contact Info) Description 07/30/2023 9:40 AM CDT Ancillary Procedure Department of Ophthalmology Arrived Social History Tobacco Use Types Packs/Day Years Used Date Smoking Tobacco: Unknown [facility] Utilities Answer Date Recorded In the past 12 months has th e electric, gas, oil, or water [employer] threatened to shut off services in your [...] Encounter RST [facility] MAIN OR [address] [place] [address] Andi Harmon M.D., D.D.S. [address] [place] [address] Scheduled Procedures Name Priority Associated Diagnoses Date/Ti me BIOPSY ARTERY TEMPORAL Arteritis Temporal (HCC) documented as of this encounter Procedures Procedure Name Priority Date/Time Associated Diagnosis Comments OPHTHALMOLOGY IMAGE EXAM Routine 07/30/2023 9:40 AM CDT documented in this encounter Results * Visual Al (VF)-Ophthalmology Image Exam (07/30/2023 9:40 AM CDT) 07/30/2023 9:40 AM CDT Narrative IIMS - 07/30/2023 9:58 AM CDT This order has been created and [...]
--- OUTSIDE RECORDS SUMMARY | 2023-07-30 23:25 | XMS_ITS | Encounter Summary ---
Author Name Unknown Organization [facility] Address [address] [place] [address] Care Team Providers Care Steam Gigger Name Role Phone Unavailable Primary Care Provider Unavailabl e Encounter Details Date Type Department Care Team (Late st Contact Info) Description 07/30/2023 10:45 AM CDT Ancillary Procedure Department of Ophthalmology Arrived Social History Tobacco Use Types Packs/Day Years Used Date Smoking Tobacco: Unknown [facility] Utilities Answer Date Recorded In the past 12 months has th e electric, gas, oil, or water [employer] threatened to shut off services in your [...] Encounter [facility] [place] [address] [place] [address] Andi Harmon M.D., D.D.S. [address] [place] [address] Scheduled Procedures Name Priority Associated Diagnoses Date/Ti me BIOPSY ARTERY TEMPORAL Arteritis Temporal (HCC) documented as of this encounter Procedures Procedure Name Priority Date/Time Associated Diagnosis Comments OPHTHALMOLOGY IMAGE EXAM Routine 07/30/2023 10:45 AM CDT documented in this encounter Results * Eyes 508-Ophthalmology Image Exam (07/30/2023 10:45 AM CDT) 07/30/2023 10:4 3 AM CDT Narrative IIMS - 07/30/2023 10:50 AM CDT This order has been created [...]
--- OUTSIDE RECORDS SUMMARY | 2023-07-30 23:25 | XMS_ITS | Encounter Summary ---
Author Name Unknown Organization [facility] Address [address] [place] [address] Care Team Providers Care Hat Mender Name Role Phone Unavailable Primary Care Provider Unavailabl e Reason for Visit * Reason Onset Date Comments Appt Request 07/25/2023 Encounter Details Date Type Department Care Team (Latest Contact Info) Description 07/25/2023 Clinical Communication Department of Ophthalmology in [place], [place] [address] [place] [address] Red Gallego M.D. [address] [place] [phone] Appt Request Social History Tobacco Use Types Packs/Day Years Used Date Smoking Tobacco: Unknown [facility] Utilities Answer Date Recorded In the past [...] your living situation today? I have a [facility] place to live 07/25/2023 Sex and [...] Encounter [facility] [address] [place] [address] Andi Harmon M.D., D.D.S. [address] [place] [address] Scheduled Procedures Name Priority Associated Diagnoses Date/Ti me BIOPSY ARTERY TEMPORAL Arteritis Temporal (HCC) documented as of this encounter Visit Diagnoses Not on filedocumented in this encounter
--- OUTSIDE RECORDS SUMMARY | 2023-07-30 23:25 | XMS_ITS | Encounter Summary ---
Author Name Unknown Organization [facility] Address [address] [place] [address] Care Team Providers Care Cnc Service Engineer Name Role Phone Unavailable Primary Care Provider Unavailabl e Encounter Details Date Type Department Care Team (Latest Contact Info) Description 07/30/2023 12:00 PM CDT Ancillary Procedure Department of Ophthalmology in [place], [place] [address] [place] [address] Red Gallego M.D. [address] [place] [address] Neuropathy Optic Social History Tobacco Use Types Packs/Day Years Used Date Smoking Tobacco: Unknown [facility] Utilities Answer Date Recorded In the [...] your living situation today? I have a [facility] place to live 07/25/2023 Sex and Gender Information Value Date Recorded Sex Assigned at Male 07/25/2023 8:23 PM CDT Gender Identity Male 07/25/2023 8:23 PM CDT Sexual Orientation Straight 07/25/2023 8: 23 PM CDT documented as of this encounter Plan of Treatment Upcoming Encounters Date Type Department Care Team (Late st Contact Info) Description 08/03/2023 Hospital Encounter [facility] OR [address] [place] [phone] Andi Harmon M.D., D.D.S. [address] [place] [phone] Scheduled Procedures Name Priority Associated Diagnoses Date/Ti me BIOPSY ARTERY TEMPORAL Arteritis Temporal (HCC) documented as of this encounter Procedures Procedure Name Priority Date/Time Associated Diagnosis Comments OPTICAL COHERENCE TOMOGRAPHY (OCT) - OPTIC NERVE - OU - BOTH EYES Routine 07/30/2023 1:36 PM CDT Neuropathy Optic documented in this encounter Results * Optical [...] Gallego M.D. OPHTH TOMOGRAPHY OPHTHALMOLOGY IMAGING EXAM documented in this encounter Visit Diagnoses Diagnosis Neuropathy Optic Arteritis Temporal (HCC)- Primary documented in this encounter
--- OUTSIDE RECORDS SUMMARY | 2023-07-30 23:25 | XMS_ITS | Encounter Summary ---
Author Name Unknown Organization [facility] Address [address] [place] [address] Care Team Providers Care Information Resources Director Name Role Phone Unavailable Primary Care Provider Unavailabl e Encounter Details Date Type Department Care Team (Latest Contact Info) Description 07/30/2023 7:50 AM CDT Hospital Encounter Department of Laboratory Medicine and Pathology, [facility], in [place], [place] [address] [place] [address] Red Gallego M.D. [address] [place] [address] Loss Visual; Defect Visual Field Social History Tobacco Use Types Packs/Day Years Used Date Smoking Tobacco: Unknown [facility] Utilities Answer Date Recorded In the [...] your living situation today? I have a [facility] place to live 07/25/2023 Sex and Gender Information Value Date Recorded Sex Assigned at Male 07/25/2023 8:23 PM CDT Gender Identity Male 07/25/2023 8:23 PM CDT Sexual Orientation Straight 07/25/2023 8: 23 PM CDT documented as of this encounter Plan of Treatment Upcoming Encounters Date Type Department Care Team (Late st Contact Info) Description 08/03/2023 Hospital Encounter RST [facility] MAIN OR [address] [place] [address] Andi Harmon M.D., D.D.S. [address] [place] [address] Scheduled Procedures Name Priority Associated Diagnoses Date/Ti me BIOPSY ARTERY TEMPORAL Arteritis Temporal (HCC) documented as of this encounter Procedures Procedure Name Priority Date/Time Associated Diagnosis Comments SEDIMENTATION RATE, B Routine 07/30/2023 8:13 AM CDT Loss Visual CBC WITH DIFFERENTIAL, B Routine 07/30/2023 8:13 AM CDT Loss Visual Defect Visual Field C-REACTIVE PROTEIN (CRP), S/P Routine 07/30/2023 8:13 AM CDT Loss Visual CREATININE WITH EGFR, S/P Routine 07/30/2023 8:13 AM CDT Loss Visual documented in this encounter Results * (ABNORMAL) CBC with Differential, Blood (07/30/2023 [...] CDT Red Gallego M.D. LAB BLOOD ADD-ON [facility] [address] [place] [address], [facility] [address] [place] [address] [facility] [address] [place] [address] * (ABNORMAL) CRP (C-Reactive Protein) (07/30/2023 8:13 AM CDT) C-Reactive Protein (CRP), S 33.6(H) <5.0 mg/L 07/30/2023 9:14 AM CDT DTL Blood (Blood, Venous) 07/30/2023 8:13 AM CDT 07/30/2023 8:52 AM CDT Red Gallego M.D. LAB BLOOD ADD-ON Performing Organization Address City/[facility]/ZIP Co de Phone Number [facility] [address] [place] [address], [facility] [address] [place] [address] * (ABNORMAL) Sedimentation Rate (07/30/2023 8:13 AM CDT) Sedimentation Rate, B 42(H) 3 - 28 mm/h 07/30/2023 10:11 AM CDT DTL Blood (Blood, Venous) 07/30/2023 8:13 AM CDT 07/30/2023 8:41 AM CDT Red Gallego M.D. LAB BLOOD ADD-ON [facility] [address] [place], [place] [address] [address] [place] [address] * Creatinine with Estimated GFR (07/30/2023 8:13 AM CDT) Creatinine 1.15 0.74 - 1.35 mg/dL 07/30/2023 9:14 AM CDT DTL Estimated GFR (eGFR) 66 >=60 mL/min/BSA 07/30/2023 9:14 AM CDT DTL Comment: Estimated GFR calculated using the 2020 CKD_EPI creatinine equation. Blood (Blood, Venous) 07/30/2023 8:13 AM CDT 07/30/2023 8:52 AM CDT Red Gallego M.D. LAB BLOOD ADD-ON [place] [address] [place] [address], [facility] DTL Formerly named [facility] [address] [place] [address] documented in this encounter Visit Diagnoses Diagnosis Loss Visual Defect Visual Field Arteritis Temporal (HCC)- Primary documented in this encounter
--- OUTSIDE RECORDS SUMMARY | 2023-07-30 23:25 | XMS_ITS | Encounter Summary ---
Author Name Unknown Organization [facility] Address [address] [place] [address] Care Team Providers Care Claims Consultant Name Role Phone Unavailable Primary Care Provider Unavailabl e Encounter Details Date Type Department Care Team (Late st Contact Info) Description 07/30/2023 Episode Changes Department of Ophthalmology in [place], [place] [address] [place] [address] Giana Mancilla Social History Tobacco Use Types Packs/Day Years Used Date Smoking Tobacco: Unknown [facility] Utilities Answer Date Recorded In the past [...] your living situation today? I have a [facility] place to live 07/25/2023 Sex and Gender Information Value Date Recorded Sex Assigned at Male 07/25/2023 8:23 PM CDT Gender Identity Male 07/25/2023 8:23 PM CDT Sexual Orientation Straight 07/25/2023 8: 23 PM CDT documented as of this encounter Plan of Treatment Upcoming Encounters Date Type Department Care Team (Late st Contact Info) Description 08/03/2023 [facility] [address] [place] [address] Andi Harmon M.D., D.D.S. [address] [place] [address] Scheduled Procedures Name Priority Associated Diagnoses Date/Ti me BIOPSY ARTERY TEMPORAL Arteritis Temporal (HCC) documented as of this encounter Visit Diagnoses Not on filedocumented in this encounter
--- OUTSIDE RECORDS SUMMARY | 2023-07-30 23:25 | XMS_ITS | Clinical Summary ---
Author Name Unknown Organization [email or web address] Address [place], [place] [address] Care Team Providers Care Care Services Manager Name Role Phone Marcio Gonzalez MD Primary Care Provider [phone] Allergies Active Allergy Reactions Criticality Noted Date [...] albuterol HFA (PRO-AIR; VENTOLIN; PROVENTIL) 90 mcg/actuation inhalerIndications: Other emphysema (HC) Inhale 2 Puffs by mouth every 4 hours if needed for Shortness of Breath 1st choice or Wheezing 2nd choice. 18 Each 5 3 Active potassium chloride (KLOR-CON) 20 mEq extended-release tablet (part/cryst)Indicat ions:Edema of right lower extremity Take 1 Tablet (20 mEq) by mouth two times daily with meals. 180 Tablet 3 3 Active furosemide (LASIX) 20 mg tabletIndications:E jeannie of right lower extremity Take 1 Tablet (20 mg) by mouth two times daily. 180 Tablet 3 3 Active atorvastatin (LIPITOR) 40 mg tabletIndications:O ther hyperlipidemia Take 1 Tablet (40 mg) by mouth at bedtime. 90 Tablet 3 3 Active fluticasone xzp-xbpibllpdlyx-kr lanterol (Trelegy Ellipta) 100-62.5-25 mcg inhalerIndications: Panlobular emphysema (HC) Inhale 1 Puff by mouth once daily. 180 Each 1 3 Active acetic acid 0.25% 0.25 % irrigation APPLY 5 MINUTE SOAK TO WOUND EVERY OTHER DAY AND NEEDED FOLLOWING WOUND CARE ORDERS. 3 Active ammonium lactate 12% topical (LACHYDRIN) 12 % lotion APPLY TO LEGS AND FEET ONCE DAILY. 3 Active apixaban (ELIQUIS) 5 mg tabletIndications:P aroxysmal atrial fibrillation (HC) Take 1 Tablet (5 mg) by mouth two times daily. 180 Tablet 2 3 Active magnesium oxide (MAG-OX 400) 400 mg tabletIndications:L ow magnesium level TAKE 1 TABLET BY MOUTH EVERY DAY 90 Tablet 1 3 Active BiPapIndications:Ob structive sleep apnea bPAP machine for home use [...] 11 3 Active mirtazapine (REMERON) 7.5 mg tabletIndications:C hronic insomnia Take 1 Tablet (7.5 mg) by mouth at bedtime. Please take at 7PM 90 Tablet 2 3 Active aspirin chewable 81 mg chewable tablet Chew 81 mg by mouth once daily with a meal. Active dilTIAZem (DILACOR XR; DILTIA XT) 180 mg Extended-Release capsuleIndications: Paroxysmal atrial fibrillation (HC) Take 1 Capsule (180 mg) by mouth once daily. 90 Capsule 4 Active brimonidine (ALPHAGAN) 0.2 % ophthalmic solution Place 1 Drop into left eye two times daily. Active traMADoL (ULTRAM) 50 mg tabletIndications:R ight leg pain TAKE 1 TABLET BY MOUTH DAILY NEEDED FOR WOUND PAIN OR BACK PAIN 30 Tablet 1 4 Active traMADoL (ULTRAM) 50 mg tabletIndications:R ight leg pain TAKE 1 TABLET BY MOUTH DAILY NEEDED FOR WOUND PAIN OR BACK PAIN 30 Tablet 4 07/27/19 24 Discontinu ed(Reorder (E-cancel not sent)) Active Problems Problem Noted Date Diagnosed Date History of stroke 07/27/2023 Overview: left MCA territory ischemic stroke, pmh of HLD, tobacco use, morbid obesity, COPD, BRITNEY and chronic back pain who is following up in stroke clinic today. He had presented [place] [facility] [place] with difficulty finding words and was found to have left frontal and temporal lobe ischemic stroke. CTA showed complete occlusion of left ICA with reconstitution at carotid siphon which was thought to be chronic and left A2 segment moderate stenosis. Stroke etiology was thought to be atheroembolic. HgbA1c was 6.3, LDL was 74. TTE showed normal EF, no WMA, no PFO and left atrial enlargement. Venous stasis ulcer of other part of [...] Word Finding Difficulties Recommended follow up at [facility]. Speech therapy, OT, and PHYSICAL [...] DDD (degenerative disc disease), lumbar 05/19/19 16 Overview: He has chronic low back pain due to this. 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 07/07/2009 09/21/2010 Overview: INR Goal Range: 1.8 - 2.5 Encounters Date Type Department Care Team Description 07/27/2023 10:30 AM CDT Office Visit [facility] [address] [place] [address] Marcio Gonzalez MD Medication Management (Tramadol follow up//Spouse has questions about atenolol - not a current medication) 07/27/2023 Travel 06/19/2023 Telephone [facility] [address] [place] [phone] Dave Maya MD Refill Request (Diltiazem/) 06/17/2023 Telephone [facility] [address] [place] [address] Marcio Gonzalez MD Refill Request (Tramadol) 05/22/2023 10:00 AM EXTRACTOR PULLER Office Visit [facility] [address] [place] [phone] Dave Maya MD CV General Cardiology Est (3 mo f/u per Dr Maya /DX:I48.0 (ICD-10-CM) - Paroxysmal atrial fibrillation (HC) //PCP: Marcio Gonzalez MD/) 05/22/2023 Travel 05/18/2023 Refill [facility] [address] [place] [address] Marcio Gonzalez MD Refill Request (Tramadol) 05/02/2023 11:00 AM EXTRACTOR PULLER Office Visit [facility] [address] [place] [address] Ricarda Bautista MD Follow Up (Yearly; Aneurysm of right internal iliac artery) 05/02/2023 8:52 AM EXTRACTOR PULLER - 05/02/2023 11:59 PM EXTRACTOR PULLER Hospital Encounter [facility] [address] [place] [address] Kael Hernandez MD 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) 05/02/2023 Travel from Last 3 Months Immunizations Name Administration Dates Next Due COVID-19 Vaccine Spikevax (M oderna 50mcg/0.5mL) 12YO+ [id number] Formula PF 01/17/2023 COVID-19 vaccine (Qualgenix-BioNTech 30mcg/0.3mL) P F, MDV 06/22/2020,06/01/2020 Influenza, High-dose [...] Date Smoking Tobacco: Every Day Cigarettes 1 60.3 Started: 1963 Smokeless Tobacco: Never Tobacco Cessation:Ready to Q uit: No; Counseling Given: No Comments:1.5 ppd 05/22/23 Alcohol Use Standard Drinks/Week Comments Yes 14 (1 standard drink = 0.6 oz pu re alcohol) 2 beers a day PHQ-2 Answer Date Recorded PHQ-2 TOTAL SCORE 0 11/08/2022 Social Connections Answer Date Recorded Frequency of Communication with Friends and Fami ly 0 07/27/2023 Alcohol Use Answer Date Recorded How often do you have a drink containing alcohol ? 4 07/27/2023 How many drinks containing a lcohol do you have on a typical day when you are drinking? 0 07/27/2023 How often do you have five or more drinks on one occasion? 0 07/27/2023 Financial Resource Strain Answer Date R ecorded Difficulty of Paying Living Expenses 3 07/27/2023 Difficulty of Paying Living Expenses Not on file 07/27/2023 Food Insecurity Answer Date Recorded Worried About Running Out of Food in the Last Ye ar 1 07/27/2023 Transportation Needs Answer Date Record ed Lack of Transportation (Medical) 1 07/27/2023 Housing Stability Answer Date Recorded Unable to Pay for Housing in the Last Year 1 07/27/2023 Sex and Gender Information Value Date Recorded Sex Assigned at Not on file Gender Identity Not on file Sexual Orientation Not on file Obstetrics History Last Filed Vital Signs Vital Sign Reading Time Taken Comments Blood Pressure 131/76 07/27/2023 10:38 AM CDT Pulse 97 07/27/2023 10:38 AM CDT Temperature 37 ??C (98.6 ??F) 07/27/2023 10: 38 AM CDT Respiratory Rate 18 05/02/2023 10:5 7 AM EXTRACTOR PULLER Oxygen Saturation 93% 07/27/2023 10: 38 AM CDT Inhaled Oxygen Concentration - - Weight 134.9 kg (297 lb 4.8 oz) 024 10:38 AM CDT Height 185.4 cm (6' 1) 05/22/2023 9:53 AM EXTRACTOR PULLER Body Mass Index 39.22 05/22/2023 9:53 AM EXTRACTOR PULLER Plan of Treatment Health Maintenance Due Date [...] history exists Medical Devices Implanted Type Area Outreach Rep Device Identifier Shelf Expiration Date Model / Serial / Lot Tissue Pericardium 0.8x8cm [employer] Bovine - [id number] Implanted:Qty: 1 on 02/13/2022 by Kael Hernandez MD at [facility] Cv Implants Right: Groin [employer] 02/27/2022 PFP 0.8X8 / / [id number] Stent Aaa [id number] Excluder Ibc - [id number] Implanted:Qty: 1 on 02/13/2022 by Kael Hernandez MD at [facility] Right: Iliac Artery [employer] 2024 [id number] / [id number] / Stent Aaa [id number] Excluder Iic - [id number] Implanted:Qty: 1 on 02/13/2022 by Kael Hernandez MD at [facility] Right: Iliac Artery [employer] 04/20/2024 [id number] / [id number] / Procedures Procedure Name Priority Date/Time Associated Diagnosis Comments CT ANGIO ABDOMEN PELVIS Routine 05/02/2023 9:29 AM EXTRACTOR PULLER 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 Reduced size of the left internal [...] AM (Electronically Signed) Narrative 05/04/2023 11:30 AM EXTRACTOR PULLER For Patients: ??As a result of the [...] mandie Non-React mandie 02/09/2022 2:56 PM CDT [facility] Comment:Antibodies to HCV no t detected; does not exclude the possibility of exposure to HCV. Blood BLOOD SPECIMEN / Unknown Venipuncture / Unknown 02/08/2022 11:20 AM CDT 02/08/2022 11:27 AM CDT Marcio Gonzalez MD SEND OUTS [facility] [address] [place] [address], [place] * CT CHEST SCREENING LOW DOSE WO [...] @11/02/2021 8:56:18 AM Pediatric and Body Radiology [email or web address] Narrative 11/02/2021 9:43 AM CDT For Patients: [...] aorta. Skeletal: No new suspicious abnormalities. Janae Johnsonkaleigh GAMING FLOOR SUPERVISOR CT from Last 3 Months or Most Recently Relevant to Health Maintenance Advance Directives Documents on File Type Date Recorded Patient Radio Station Manager Expl anation Treatment Guidelines 02/11/2022 * Full Code (Latest Code Status on File) Date Activated Date Inactivated Comments 02/13/2022 1:00 PM 02/14/2022 5:39 PM Question Answer Comments Code Status Discussion: Reviewed Preferences * Full Code Date Activated Date Inactivated Comments 02/13/2022 6:05 AM 02/13/2022 12:59 PM Question Answer Comments Code Status Discussion: Unable to Assess Preferences, Provider to review later Care Teams Care Services Manager Relationship Specialty Start Date End Date Marcio Gonzalez MD [address] [place] [address] PCP - General Family Practice 12/20/15
--- OUTSIDE RECORDS SUMMARY | 2023-07-30 23:25 | XMS_ITS | Encounter Summary ---
Author Name Unknown Organization [facility] Address [address] [place] [address] Care Team Providers Care Plate Finisher Name Role Phone Unavailable Primary Care Provider Unavailabl e Encounter Details Date Type Department Care Team (Latest Contact Info) Description 07/30/2023 11:15 AM CDT Ancillary Procedure Department of Ophthalmology in [place], [place] [address] [place] [address] Red Gallego M.D. [address] [place] [address] Neuropathy Optic Social History Tobacco Use Types Packs/Day Years Used Date Smoking Tobacco: Unknown [facility] Utilities Answer Date Recorded In the past [...] your living situation today? I have a [facility] place to live 07/25/2023 Sex and Gender Information Value Date Recorded Sex Assigned at Male 07/25/2023 8:23 PM CDT Gender Identity Male 07/25/2023 8:23 PM CDT Sexual Orientation Straight 07/25/2023 8: 23 PM CDT documented as of this encounter Plan of Treatment Upcoming Encounters Date Type Department Care Team (Late st Contact Info) Description 08/03/2023 Hospital Encounter [facility] MAIN OR [address] [place] [phone] Andi Harmon M.D., D.D.S. [address] [place] [phone] Scheduled Procedures Name Priority Associated Diagnoses Date/Ti me BIOPSY ARTERY TEMPORAL Arteritis Temporal (HCC) documented as of this encounter Procedures Procedure Name Priority Date/Time Associated Diagnosis Comments FUNDUS PHOTOS - OU - BOTH EYES Routine 07/30/2023 12:42 PM CDT Neuropathy Optic documented in this encounter Results * Fundus Photos - OU - Both Eyes (07/30/2023 12:42 PM CDT) Narrative OPHTHALMOLOGY IMAGING EXAM - 07/30/2023 1:16 PM CDT Right Eye Fundus photo type obtained is Color. Left Eye Fundus photo type obtained is Color. Notes The interpretation report for this test can be found in the Testing section of the chart note dated 07/30/2023 Red Gallego M.D. OPHTH PHOTOGRAPHY OPHTHALMOLOGY IMAGING EXAM documented in this encounter Visit Diagnoses Diagnosis Neuropathy Optic Arteritis Temporal (HCC)- Primary documented in this encounter
--- OUTSIDE RECORDS SUMMARY | 2023-07-30 23:25 | XMS_ITS | Encounter Summary ---
Author Name Unknown Organization [facility] Address [address] [place] [address] Care Team Providers Care Mangle Roller Name Role Phone Unavailable Primary Care Provider Unavailabl e Encounter Details Date Type Department Care Team (Latest Contact Info) Description 07/30/2023 9:30 AM CDT Ancillary Procedure Department of Ophthalmology in [place], [place] [address] [place] [address] Red Gallego M.D. [address] [place] [address] Neuropathy Optic Social History Tobacco Use Types Packs/Day Years Used Date Smoking Tobacco: Unknown [facility] Utilities Answer Date Recorded In the [...] your living situation today? [facility] 07/25/2023 Sex and Gender Information Value Date Recorded Sex Assigned at Male 07/25/2023 8:23 PM CDT Gender Identity Male 07/25/2023 8:23 PM CDT Sexual Orientation Straight 07/25/2023 8: 23 PM CDT documented as of this encounter Plan of Treatment Upcoming Encounters Date Type Department Care Team (Late st Contact Info) Description 08/03/2023 Hospital Encounter [facility] [address] [place] [phone] Andi Harmon M.D., D.D.S. [address] [place] [phone] Scheduled Procedures Name Priority Associated Diagnoses Date/Ti me BIOPSY ARTERY TEMPORAL Arteritis Temporal (HCC) documented as of this encounter Procedures Procedure Name Priority Date/Time Associated Diagnosis Comments AUTOMATED VF - EXTENDED - OU - BOTH EYES Routine 07/30/2023 10:04 AM CDT Neuropathy Optic documented in this encounter Results * Automated VF - Extended - OU - Both Eyes (07/30/2023 10:04 AM CDT) Narrative OPHTHALMOLOGY IMAGING EXAM - 07/30/2023 11:43 AM CDT Right Eye Automated visual field device used was Zeiss. Strategy was ELEIR. Threshold was 24-2. Eyelid was untaped. Left [...] dated 07/30/2023 Red Gallego M.D. OPH VISUAL AMPARO [facility] Organization Address City/State/ZIP Co de Phone Number OPHTHALMOLOGY IMAGING EXAM documented in this encounter Visit Diagnoses Diagnosis Neuropathy Optic Arteritis Temporal (HCC)- Primary documented in this encounter
--- OUTSIDE RECORDS SUMMARY | 2023-07-30 23:25 | XMS_ITS | Encounter Summary ---
Author Name Unknown Organization [facility] Address [address] [place] [address] Care Team Providers Care Utility Porter Name Role Phone Unavailable Primary Care Provider Unavailabl e Reason for Visit * MRI/CAT/PET Scan (Routine) - Closed Specialty Diagnoses / Procedures Referred By Janeth t Referred To Contact Radiology Diagnoses Neuropathy Optic Procedures MR Examination Not Performed MR Orbits without and with IV Contrast Red Gallego M.D. [address] [place] [address] [facility] Referral ID Status Reason Start Date Expiration Date Visits Re quested Visits Authorized [id number] Closed 07/04/2023 07/03/2024 1 1 Encounter Details Date Type Department Care Team (Latest Contact Info) Description 07/24/2023 2:40 PM CDT - 07/24/2023 11:59 PM CDT Hospital Encounter Department of Radiology, [facility] in [place], [place] [address] [place] [address] Red Gallego M.D. [address] [place] [phone] Neuropathy Optic Discharge Disposition: Home or Self Care Social History Tobacco Use Types Packs/Day Years Used Date Smoking Tobacco: Unknown [facility] Utilities Answer Date Recorded In the [...] PM CDT documented as of this encounter Last Filed Vital Signs Vital Sign Reading Time Taken Comments Blood Pressure - - Pulse 68 07/24/2023 4:11 PM CDT Temperature - - Respiratory Rate 16 07/24/2023 4:11 PM CDT Oxygen Saturation 93% 07/24/2023 4:11 PM CDT Inhaled Oxygen Concentration - - Weight - - Height - - Body Mass Index - - documented in this encounter Medications at Time of Discharge [...] drop into both eyes at bedtime. 07/07/2023 documented as of this encounter Nursing Notes * Tosha Cao R.N. - 07/24/2023 3:45 PM CDT Radiology Minimal Sedation Screening (Ativan) Is the patient 18 and older: YES if yes, continue. If no, did Radiologists approve administration and was verbal consent obtained from parents? Able to take oral meds? YES if yes, continue. Does the patient have a responsible adult accompanying them? YES - If yes: Name of accompanying adult John and pt's son Phone number of accompanying adult wait in [facility] Does patient have an allergy to lorazepam or other benzodiazepines? NO If no, continue. Does patient have active respiratory issues? YES If no, continue.COPD controlled If yes notify radiologist for direction prior to continuing. Has the patient taken any other benzodiazepines, antidepressants, or sedating medications today? NOIf no, continue. If yes, ask how long they have been taking the medication(s) and notify radiologist for direction prior to continuing. Does patient have a hx of narrow angle glaucoma or gaging or choking? NO If no, continue. If yes notify radiologist for direction prior to continuing. Is patient scheduled for a MR proctogram or neuro functional MR? NO If no, continue. Is the patient scheduled for a MR guided breast biopsy? NO - if yes, obtain consent prior to administration. Is patient or ? NO If no, continue. Does patient have other appointments today that may require attention to detail or informed consent? NO If no, continue. If yes, call other area to determine if administration is ???ok?? . * Mati Reyes R.N. - 07/24/2023 3:45 PM CDT HR 64, SpO2 94 % RA, RR 16, A+O x 3, pt OK to leave department to family in waiting room. Will escort out documented in this encounter Plan of Treatment Upcoming Encounters Date Type Department Care Team (Late st Contact Info) Description 08/03/2023 Hospital Encounter [facility] [address] [place] [phone] Andi Harmon M.D., D.D.S. [address] [place] [address] Scheduled Procedures Name Priority Associated Diagnoses Date/Ti me BIOPSY ARTERY TEMPORAL Arteritis Temporal (HCC) documented as of this encounter Procedures Procedure Name Priority Date/Time Associated Diagnosis Comments MR EXAMINATION NOT PERFORMED RAD - Routine (most inpatients and all outpatients) 07/24/2023 4:10 PM CDT Neuropathy Optic MR EXAMINATION NOT PERFORMED RAD - Routine (most inpatients and all outpatients) 07/24/2023 4:10 PM CDT Neuropathy Optic documented in this encounter Results * MR Examination Not Performed (07/24/2023 4:10 PM CDT) Anatomical Region Laterality Modality N/A Magnetic Resonan [...] due to patient discomfort and claustrophobia. Red LOGAN MRI PROCEDURE S * MR Examination Not Performed (07/24/2023 4:10 PM CDT) Anatomical Region Laterality Modality N/A Magnetic Resonan [...] due to patient discomfort and claustrophobia. Red LOGAN MRI PROCEDURE S documented in this encounter Visit Diagnoses Diagnosis Neuropathy Optic documented in this encounter Administered Medications Inactive Administered Medications - up to 3 most recent administrations Medication Order MAR Action Action Date Dose Rate Site LORazepam tablet 0.5 mg (ATIVAN) 0.5 mg, sublingual, As needed, anxiety, Starting on Sun07/24/23 at 1457, For 4 doses, Imaging Protocol Orders, 1 mg by mouth once as needed for anxiety related to radiology study. May administer 0.5 mg dose if patient prefers. May repeat every 15 minutes if anxiety persists (2 mg maximum dose). Given 07/24/2023 3:17 PM CDT 1 mg documented in this encounter
--- OUTSIDE RECORDS SUMMARY | 2023-07-30 23:25 | XMS_ITS | Encounter Summary ---
Author Name Unknown Organization [facility] Address [address] [place] [address] Care Team Providers Care Disintegrator Feeder Name Role Phone Unavailable Primary Care Provider Unavailabl e Reason for Referral * Outpatient (Routine) - Authorized Specialty Diagnoses / Procedures Referred By Janeth phill[place] Referred To Contact Ophthalmology Diagnoses Ischemia Retina Glaucoma Neovascular Red Gallego M.D. [address] [place] [address] [facility] Referral ID Status Reason Start Date Expiration Date V isits Requested Visits Authorized [id number] Authorized 07/30/2023 01/28/2025 1 1 Scheduling Instructions Please try to schedule within 1-2 weeks * Outpatient (Routine) - Authorized Specialty Diagnoses / Procedures Referred By Janeth phill[place] Referred To Contact Diagnoses Arteritis Temporal (HCC) Ischemia Retina Glaucoma Neovascular Procedures OMS Temporal artery biopsy Red Gallego M.D. [address] [place] [address] [facility] Referral ID Status Reason Start Date Expiration Date V isits Requested Visits Authorized [id number] Authorized 07/30/2023 07/29/2024 1 1 Reason for Visit * Reason Comments Decreased Visual Acuity * Appointment Request (Routine) - Closed Specialty Diagnoses / Procedures Referred By Contac t Referred To Contact Ophthalmology Diagnoses Neuropathy Optic Ischemic Graciela Giron O.D. [address], [place] [address] Referral ID Status Reason Start Date Expiration Date Visits Re quested Visits Authorized [id number] Closed 04/27/2023 04/26/2024 1 1 Encounter Details Date Type Department Care Team (Latest Contact Info) Description 07/30/2023 3:15 PM CDT Comprehensive Visit Department of Ophthalmology in [place], [place] [address] [place] [phone] Red Gallego M.D. [address] [place] [phone] Ischemia Retina (Primary Dx); Arteritis Temporal (HCC); Glaucoma Neovascular; Intraocular Lens Implant Status Post; Occlusion Carotid Artery Left Social History Tobacco Use Types Packs/Day Years Used Date Smoking Tobacco: Unknown [facility] Utilities Answer Date Recorded In the past 12 months has [employer], gas, oil, or water [email or web address] threatened to shut off services in your [...] living situation today? I have a [facility] place to live 07/25/2023 Sex and Gender Information Value Date Recorded Sex Assigned at Male 07/25/2023 8:23 PM CDT Gender Identity Male 07/25/2023 8:23 PM CDT Sexual Orientation Straight 07/25/2023 8: 23 PM CDT documented as of this encounter Progress Notes * Red Gallego M.D. - 07/30/2023 3:15 PM CDT Images from the original note were not included. ASSESSMENT / PLAN #1 Ocular ischemic syndrome, left eye #2 Neovascular glaucoma, left eye #3 Left ICA occlusion #4 Pseudophakia, both eyes (Right: Feb-2018; Left: Jan-2022) Testing 07/30/2023: Mcmahan visual field: Right: 02/23 fixation losses, 22% false pos, 15% false neg, temporal and inferior depression Left: patient refused testing OCT: Right: rNFL thinning (sup and inf quadrant), GCC thinning (sparing superonasal) Left: rNFL thinning (poor nerve registration); patient refused additional testing Fundus photo: Right: sharp disc margins, mild nerve pallor, mild arteriolar tortuosity Left: sharp disc margins, general nerve pallor, macular dot hemorrhages, arteriolar attenuation including intermittent dropout of superotemporal arcade Overall Impression 07/30/2023: The patient was referred for evaluation in the context of vision loss in the left eye. The exam today showed central acuity of 20/25 right eye and count fingers left eye with 14/14 colorplates right eye and 0/14 left eye and a left rAPD. The anterior segment examination was notable for neovascularization of the iris and angle with hemorrhage in the angle in the left eye. The dilatedfundus exam showed trace pallor without edema of the right optic nerve; the left optic nerve showedmoderate pallor without edema. Scattered dot hemorrhages were present in the macula in the left eyeand there was significant left arterial attenuation with drop out of the superotemporal arcade. Visual field testing was unreliable in the right eye and showed temporal and inferior depression; the patient refused visual field testing on his left eye. OCT showed rNFL thinning with ganglion cell thinning in the right eye; the left eye showed rNFL thinning with poor nerve registration (the patient refused additional images). The patient reported having left eye and periorbital pain starting in late March 2023. At this time the left eye vision also started to worsen. The vision gradually progressed to its current levelwhich the patient indicates has been present for 1-2 months. MRI brain/orbits was attempted 07/24/2023 but the patient was not able to lie still to complete the exam. A CT/CTA head and neck 07/29/2023 showed left ICA occlusion (has been present at least since December 2021). The patient's history and exam is concerning for left ocular ischemic syndrome with a secondary neovascular glaucoma. While the time course of his symptoms would not clearly match with GCA, he did have a mildly elevated CRP outside 03/27/2023 and an elevated CRP and ESR today, which necessitates further evaluation. We will request a temporal artery biopsy with [facility] as the patient would not be able to tolerate the procedure with local sedation only. We will also start prednisone as below until biopsy results are available. If GCA is ruled out, I am concerned that with the patient's history of left ICA occlusion that his collateral circulation may be failing, leading to the symptomatic ocular ischemic syndrome. The patient follows with a vascular surgeon locally and we will forward our records from today to see if they can evaluate him for any medical/surgical options to optimize his vasculopathy. With the neovascular glaucoma, we will request retina evaluation to see if laser or anti-VEGF therapy is indicated. The patient was planned for additional retina imaging today with OCT and fluorescein angiogram, but he refused these tests. We discussed the importance of this testing and I am hopeful he will remain agreeable when he returns for retina evaluation. Plan 07/30/2023: Continue drops (latanoprost QHS OU, brimonidine 2x/day left eye) Start 60mg PO prednisone (continue until TAB result available) Referral for TAB with [facility] Retina referral (ocular ischemic syndrome with neovascular glaucoma) Will send records to patient's vascular specialist HPI The patient was referred by Graciela Giron O.D. who saw the patient 04/23/2023. At this time the patient reported having terrible headaches around his left eye along with his leftnostril running. Notes indicate he initially presented 03/27/2023 with complaints of decreased vision and pain in the left eye. Visual acuity is 20/30 right eye and 20/200+2 (pinhole 20/70) left eye with normal pupils. IOP was 16/19. Mild macular RPE changes were documented in each eye with few scattered MAs in the left eye. The optic nerve on the right was described as pink with distinct margins; the left was reported as ' slight pallor, inferior notching, no edema or hemes'. OCT nerve reportedly showed bilateral rNFL and ganglion cell thinning stable from previous. Visual jacome were reported showing a general reduction in the right with a dense superior arc and beginning of inferior arc in the left eye. Overall was thought this was consistent with open- angle glaucoma in the plan was toreassess in 3 months. Neuro-Ophthalmology evaluation was planned. ESR and CRP were checked and reportedly negative. The patient was seen again 07/23/2023 and reported worse vision in the left eye. Central acuity was20/25-1 right eye and light perception left eye with a left rAPD. IOP was 19/27. In the left eye the posterior exam was now reported showing mild dot blot hemes in the periphery with severe dot blot heme in the posterior pole including a boat shaped hemorrhage inferior; severe arterial attenuation w as documented. The left optic nerve was reported as showing 'superior notching, slight pallor, no edema or hemes, question of collateral vessel nasal'. He was started on brimonidine 2x/day OS (in addition to continuing latanoprost QHS OU). MRI brain/orbit 07/24/2023 was not able to be completed due to patient being unable to lie still despite oral sedation. Today the patient reports that he started to have pain above the left eye in late March-2022. Around this same time he started to notice the left eye vision was more blurred. He thinks the pain over the left eye has improved over the last few months. He thinks the vision has been at its present level for a few months. It affects the whole visual field. The right eye has seemed normal to this point. He does not recall any transient vision loss or diplopia leading up to his symptoms. He reports headaches described as the pain he feels around the left eye. 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 He takes Eliquis for Afib. He does not recall stopping it for any procedures. He denies other eye history; he is taking latanoprost QHS OU and brimonidine 2x/day left eye. He denies history of diabetes. Lab testin03/27/23 outside: Negative/WNL: ESR (15) Positive: CRP (1.0mg/dL) 07/30/23: Negative/WNL: Cr, platelets (207) Positive: CRP (33.6 mg/L), ESR (42) Carotid US 12/13/21 outside: IMPRESSION: 1. Based on the ICA velocities, ICA/CCA ratio, and 2D images there is plaque causing <50% stenosis in the right internal carotid artery and there is total occlusion in the left internal carotid artery. 2. Normal antegrade flow within bilateral vertebral arteries. 3. Multiphasic flow within bilateral subclavian arteries. MRI brain/orbit 07/24/23: Not performed - patient unable to lie still. CT/CTA head neck 07/29/23: IMPRESSION: 1. 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 The left internal carotid artery is reconstituted intracranially at the level of the cavernous segment, where there is multifocal moderate stenosis. 2. 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 Outside testin03/27/23: 04/23/23: documented in this encounter Plan of Treatment Upcoming Encounters Date Type Department Care Team (Late st Contact Info) Description 08/03/2023 Hospital Encounter [facility] [address] [place] [phone] Andi Harmon M.D., D.D.S. [address] [place] [address] Scheduled Orders Name Type Priority Associated Diagnoses Orde r Schedule OMS Temporal artery biopsy Procedures Routine Arteritis Temporal (HCC) Ischemia Retina Glaucoma Neovascular Expected: 07/30/2023, Expires: 10/28/2024 Scheduled Procedures Name Priority Associated Diagnoses Date/Ti me BIOPSY ARTERY TEMPORAL Arteritis Temporal (HCC) Scheduled Referrals Name Type Priority Associated Diagnoses Order Schedule Ophthalmology - Retina consult (clinic) Outpatient Referral Routine Ischemia Retina Glaucoma Neovascular Expected: 07/30/2023, Expires: 10/28/2024 documented as of this encounter Visit Diagnoses Diagnosis Ischemia Retina- Primary Arteritis Temporal (HCC) Glaucoma Neovascular Intraocular Lens Implant Status Post Occlusion Carotid Artery Left Arteritis Temporal (HCC)- Primary documented in this encounter
--- OUTSIDE RECORDS SUMMARY | 2023-07-30 23:25 | XMS_ITS | Encounter Summary ---
Author Name Unknown Organization [facility] Address [address] [place] [address] Care Team Providers Care Brazer Production Line Name Role Phone Unavailable Primary Care Provider Unavailabl e Reason for Referral * MRI/CAT/PET Scan (Routine) - Authorized Specialty Diagnoses / Procedures Referred By Contac t Referred To Contact Radiology Diagnoses Loss Visual Procedures CT Head with IV Contrast Red Gallego M.D. [address] [place] [address] [facility] Referral ID Status Reason Start Date Expiration Date V isits Requested Visits Authorized [id number] Authorized 07/25/2023 07/24/2024 1 1 * MRI/CAT/PET Scan (Routine) - Closed Specialty Diagnoses / Procedures Referred By Janeth phillips Referred To Contact Radiology Diagnoses Loss Visual Procedures CT Head Neck Angiogram with IV Contrast Red Gallego M.D. [address] [place] [address] [facility] Referral ID Status Reason Start Date Expiration Date Visits Re quested Visits Authorized [id number] Closed 07/25/2023 07/24/2024 1 1 Encounter Details Date Type Department Care Team (Late st Contact Info) Description 07/25/2023 Orders Only Department of Ophthalmology in [place], [place] [address] [place] [address] Red Gallego M.D. [address] [place] [address] Loss Visual (Primary Dx); Defect Visual Field Social History Tobacco Use Types Packs/Day Years Used Date Smoking Tobacco: Unknown [facility] Utilities Answer Date Recorded In the [...] your living situation today? I have a [facility] place to live 07/25/2023 Sex and Gender Information Value Date Recorded Sex Assigned at Male 07/25/2023 8:23 PM CDT Gender Identity Male 07/25/2023 8:23 PM CDT Sexual Orientation Straight 07/25/2023 8: 23 PM CDT documented as of this encounter Plan of Treatment Upcoming Encounters Date Type Department Care Team (Late st Contact Info) Description 08/03/2023 Hospital Encounter [facility] [address] [place] [phone] Andi Harmon M.D., D.D.S. [address] [place] [address] Scheduled Orders Name Type Priority Associated Diagnoses Orde r Schedule CT Head with IV Contrast Imaging RAD - Routine (most inpatients and all outpatients) Loss Visual Expected: 07/25/2023, Expires: 10/23/2024 Scheduled Procedures Name Priority Associated Diagnoses Date/Ti me BIOPSY ARTERY TEMPORAL Arteritis Temporal (HCC) documented as of this encounter Results * (ABNORMAL) CBC with [...] Red Gallego M.D. LAB BLOOD ADD-ON [facility] [address] [place] [address], [facility] [address] [place], [place] [phone] [place] [address] [address] [place] [address] * (ABNORMAL) CRP (C-Reactive Protein) (07/30/2023 8:13 AM CDT) C-Reactive Protein (CRP), S 33.6(H) <5.0 mg/L 07/30/2023 9:14 AM CDT DTL Blood (Blood, Venous) 07/30/2023 8:13 AM CDT 07/30/2023 8:52 AM CDT Red Gallego M.D. LAB BLOOD ADD-ON [facility] [address] [place], [place] [phone] [place] [address] [address] [place] [address] * (ABNORMAL) Sedimentation Rate (07/30/2023 8:13 AM CDT) Sedimentation Rate, B 42(H) 3 - 28 mm/h 07/30/2023 10:11 AM CDT DTL Blood (Blood, Venous) 07/30/2023 8:13 AM CDT 07/30/2023 8:41 AM CDT Red Gallego M.D. LAB BLOOD ADD-ON Performing Organization Address City/State/[facility] Co de Phone Number [facility] [address] [place] [address], [facility] [address] [place] [address] * Creatinine with Estimated GFR (07/30/2023 8:13 AM CDT) Creatinine 1.15 0.74 - 1.35 mg/dL 07/30/2023 9:14 AM CDT DTL Estimated GFR (eGFR) 66 >=60 mL/min/BSA 07/30/2023 9:14 AM CDT DTL Comment: Estimated GFR calculated using the 2020 CKD_EPI creatinine equation. Blood (Blood, Venous) 07/30/2023 8:13 AM CDT 07/30/2023 8:52 AM CDT Red Gallego M.D. LAB BLOOD ADD-ON Performing Organization Address City/[facility]/ZIP Co de Phone Number [facility] [address] [place] [address], [facility] [address] [place] [address] * CT Head Neck Angiogram with IV Contrast (07/29/2023 2:33 PM CDT) Anatomical Region Laterality Modality Head and Neck, Neuroradiolog y RST LOS, Neuroradiology ARZ LOS, Neuroradiology FL LOS N/A Computed Tomography, Compute d Tomography [...] in this encounter Visit Diagnoses Diagnosis Loss Visual- Primary Defect Visual Field Loss Visual documented in this encounter
--- OUTSIDE RECORDS SUMMARY | 2023-07-30 23:25 | XMS_ITS | Encounter Summary ---
Author Name Unknown Organization [facility] Address [address] [place] [address] Care Team Providers Care Manager Field Investigations Name Role Phone Unavailable Primary Care Provider Unavailabl e Encounter Details Date Type Department Care Team (Late st Contact Info) Description 07/30/2023 2:10 PM CDT Ancillary Procedure Department of Ophthalmology in [place], [place] [address] [place] [phone] Red Gallego M.D. [address] [place] [phone] Social History Tobacco Use Types Packs/Day Years Used Date Smoking Tobacco: Unknown [facility] Utilities Answer Date Recorded In the [...] your living situation today? I have a [facility] place to live 07/25/2023 Sex and Gender Information Value Date Recorded Sex Assigned at Male 07/25/2023 8:23 PM CDT Gender Identity Male 07/25/2023 8:23 PM CDT Sexual Orientation Straight 07/25/2023 8: 23 PM CDT documented as of this encounter Plan of Treatment Upcoming Encounters Date Type Department Care Team (Late st Contact Info) Description 08/03/2023 Hospital Encounter [facility] [address] [place] [phone] Andi Harmon M.D., D.D.S. [address] [place] [address] Scheduled Procedures Name Priority Associated Diagnoses Date/Ti me BIOPSY ARTERY TEMPORAL Arteritis Temporal (HCC) documented as of this encounter Visit Diagnoses Not on filedocumented in this encounter
--- OUTSIDE RECORDS SUMMARY | 2023-07-30 23:25 | XMS_ITS | Encounter Summary ---
Author Name Unknown Organization [facility] Address [address] [place] [id number] Care Team Providers Care Weather Strip Installer Name Role Phone Unavailable Primary Care Provider Unavailabl e Encounter Details Date Type Department Care Team (Late Contact Info) Description 07/03/2023 Orders Only Department of Ophthalmology in [place], [place] [address] [place] [phone] Red Gallego M.D. [address] [place] [phone] Social History Tobacco Use Types Packs/Day Years [...] Encounters Date Type Department Care Team (Late Contact Info) Description 08/03/2023 Hospital Encounter [facility] [address] [place] [phone] Andi Harmon M.D., D.D.S. [address] [place] [phone] Scheduled Procedures Name Priority Associated Diagnoses Date/Ti me BIOPSY ARTERY TEMPORAL Arteritis Temporal (HCC) documented as of this encounter Visit Diagnoses Not on filedocumented in this encounter
[2023-07-30 23:27] LABS: Basophils Percent Auto 0.7 % (0.0-3.0); Eosinophils Percent Auto 0.3 % (0.0-7.0); Hematocrit 32.7 % (37.0-53.0); Hemoglobin* 10.4 gm/dL (13.5-17.5); Immature Granulocytes Pct Auto 1.8 %; Lymphocytes Percent Auto 10.9 % (20-44); Mean Corpuscular HGB Conc 32 gm/dL (32-36); Mean Corpuscular Hemoglobin 31 pg (26-34); Mean Corpuscular Volume 97 fL (80-100); Monocytes Percent Auto 11.8 % (0.0-11.0); Neutrophils Percent Auto 74.5 % (42.0-72.0); Platelet Count* 193 K/uL (140-440); RDW Coefficient of Variation % 15.3 % (11.5-15.5); Red Blood Count 3.36 m/uL (4.30-5.90); White Blood Count* 14.36 K/uL (4.50-11.00)
[2023-07-30 23:28] LABS: PCR FLU A Negative PCR FLU A (Negative); PCR FLU B Negative PCR FLU B (Negative); PCR RSV Negative PCR RSV (Negative); SARS PCR* Negative SARS-CoV-2 (Negative)
[2023-07-30 23:29] LABS: Chloride* 104 mmol/L (96-114); Sodium* 137 mmol/L (135-149)
[2023-07-30 23:30] LABS: Potassium* 4.4 mmol/L (3.6-5.1)
--- NOTE | 2023-07-30 23:30 | PC.NURSE ---
pt up at bedside to use urinal. sba, pt able to stand independently. oxygen sats down to 80% while up and RR30s, once back in bed pt returned to baseline.
[2023-07-30 23:32] LABS: Alanine Aminotransferase* 14 U/L (4-50); Alkaline Phosphatase* 113 U/L (40-150); Anion Gap 3 mEq/L (7-15); Aspartate Amino Transferase* 23 U/L (12-35); Bilirubin Total* 0.7 mg/dL (0.1-1.5); Blood Urea Nitrogen* 19 mg/dL (7-30); Carbon Dioxide* 30 mmol/L (20-32); Estimated Glomerular Filt Rate 78 ml/min; Glucose* 139 mg/dL (60-115)
[2023-07-30 23:33] LABS: Calcium* 8.5 mg/dL (8.4-10.6)
--- NOTE | 2023-07-30 23:36 | PC.NURSE ---
Duoneb started at 2310. Pt awake, talking with and falling asleep intermittently.
[2023-07-30 23:37] LABS: Slide Review Reflex No
[2023-07-30 23:44] LABS: Troponin I* 0.02 ng/mL (0.01-0.04)
[2023-07-30 23:46] LABS: NT Pro B Type NatriureticPept* 418 pg/mL
[2023-07-30 23:49] LABS: HCO3 VBG 31 mmol/L (21-28); PCO2 VBG 51 mmHG (40-50); PO2 VBG 61.5 mmHG (25-47); pH VBG 7.38 (7.32-7.43)
[2023-07-30 23:58] LABS: Appearance Urine Cloudy (Clear); Bilirubin Urine Negative (Negative); Blood Urine 1+ (Negative); Color Urine Brown (Yellow); Glucose Urine Negative (Negative); Ketones Urine Negative (Negative); Leukocyte Esterase Urine 1+ (Negative); Nitrite Urine Positive (Negative); Protein Urine 3+ (Negative); Specific Gravity Urine 1.025 (1.000-1.030); Urobilinogen Urine 0.2 (0.2-1.0); pH Urine 5.5 (5.0-8.5)
[2023-07-31] VITALS (12 sets, daily range): BP systolic 118–136; BP diastolic 49–66; PULSE 75–83; RESP 18–24; TEMP 36.6–37.5; O2SAT 88–95; BMI 36.5; BMI 36.3
[2023-07-31 00:07] LABS: Bacteria Urine Moderate; RBC Urine 0-2 (0-2); Squamous Epithelial Cell Urine Few (None-Few)
[2023-07-31] MEDS: cefTRIAXone 1 GM in 0.9 % SODIUM CHLORIDE Mini-bag 100 ML IVPB (00:48)
[2023-07-31] MEDS: DOXYCYCLINE HYCLATE 100 MG PO ×2 (00:49→21:48)
--- NOTE | 2023-07-31 03:04 | W.PM.TELEH&P ---
Telehealth- H&P: HPI History of Present Illness Date Seen: 07/31/23 Chief complaint: weakness Narrative: Andrew Shields is seen as an Interactive Telehealth visit. Andrew Shields is a 77 year old male who presented to the emergency room with increased weakness and shortness of breath. Gen has a significant past medical history of atrial fibrillation currently anticoagulated on Eliquis, depression, chronic low back pain, tobacco abuse, obesity, peripheral vascular disease with chronic lower extremity stasis ulcerations, COPD and obstructive sleep apnea on home CPAP. Gen states that he spent most of the day in [place] as he was there to have his vision checked. Apparently he had some cataract surgery and continues to have some difficulty with his vision. He is somewhat poor most of the history is achieved through the emergency room provider. Apparently, over the last few days Gen has been having some increased weakness. I believe his called the ambulance today as he was unable to get up and do his ADLs. Gen seems to be a somewhat poor historian, but denies any recent cough or cold type symptoms. He denies any fever or chills. Upon presentation the emergency room, he was noted to be quite hypoxic with low oxygen saturations in the 70s. He was also noted to have a leukocytosis and possible infiltrate noted on chest x-ray. He does admit to continuing to smoke at least 24 cigarettes/day. He does go to wound clinic regularly to tend to his bilateral lower extremity stasis ulcer wounds. With his increased demand for oxygen supplementation with his acute hypoxic respiratory failure, he is currently being admitted to the medical service for further evaluation and treatment. Review of Systems Status of ROS: Reports: 10 or more systems reviewed and unremarkable except as noted in History and below [facility] Medical History (Updated 07/31/23 @ 03:21 by Gregory Encarnacion MD) Atrial fibrillation and flutter ?I48.91 - Unspecified atrial fibrillation (ICD-10) ?I48.92 - Unspecified atrial flutter (ICD-10) Alcohol use disorder ?F10.90 - Alcohol use, unspecified, uncomplicated (ICD-10) Aneurysm of right internal iliac artery ?I72.3 - Aneurysm of iliac artery (ICD-10) Recurrent major depressive disorder ?F33.9 - Major depressive disorder, recurrent, unspecified (ICD-10) Hepatic steatosis ?K76.0 - Fatty (change of) liver, not elsewhere classified (ICD-10) Chronic left-sided low back pain ?M54.50 - Low back pain, unspecified (ICD-10) ?G89.29 - Other chronic pain (ICD-10) Erectile dysfunction ?N52.9 - Male erectile dysfunction, unspecified (ICD-10) Degenerative joint disease (DJD) of lumbar spine ?M47.816 - Spondylosis without myelopathy or radiculopathy, lumbar region (ICD-10) Adenomatous colon polyp ?D12.6 - Benign neoplasm of colon, unspecified (ICD-10) Chronic heart failure with preserved ejection fraction (HFpEF) ?I50.32 - Chronic diastolic (congestive) heart failure (ICD-10) Tobacco abuse disorder ?Z72.0 - Tobacco use (ICD-10) Venous stasis ulcer ?I83.009 - Varicose veins of unspecified lower extremity with ulcer of unspecified site (ICD-10) ?L97.909 - Non-pressure chronic ulcer of unspecified part of unspecified lower leg with unspecified severity (ICD-10) Venous stasis dermatitis of both lower extremities ?I87.2 - Venous insufficiency (chronic) (peripheral) (ICD-10) Obesity ?E66.9 - Obesity, unspecified (ICD-10) Lung nodule ?R91.1 - Solitary pulmonary nodule (ICD-10) Chest pain ?R07.9 - Chest pain, unspecified (ICD-10) Cellulitis ?L03.90 - Cellulitis, unspecified (ICD-10) CVA (cerebral vascular accident) ?I63.9 - Cerebral infarction, unspecified (ICD-10) Obstructive sleep apnea ?G47.33 - Obstructive sleep apnea (adult) (pediatric) (ICD-10) Chronic respiratory failure ?J96.10 - Chronic respiratory failure, unspecified whether with hypoxia or hypercapnia (ICD-10) Pneumonia ?J18.9 - Pneumonia, unspecified organism (ICD-10) COPD (chronic obstructive pulmonary disease) ?J44.9 - Chronic obstructive pulmonary disease, unspecified (ICD-10) Surgical History Status post left knee replacement ?Z96.652 - Presence of left artificial knee joint (ICD-10) Status post right knee replacement ?Z96.651 - Presence of right artificial knee joint (ICD-10) History of colonoscopy ?Z98.890 - Other specified postprocedural states (ICD-10) Family History Sister Breast cancer Brain cancer Father Skin cancer Brother Heart disease Mother Heart disease Other Diabetes Social History Narrative: . Lives with . Continues to smoke a minimum 1 pack per day of cigarettes. At least a 60 pack-year history of smoking. Drinks a minimal of 2-3 servings of vodka daily. Denies alcohol withdrawal symptoms. Denies any other street or recreational drugs. Does not want to be kept alive as a vegetable. On 11/08/2022 he tells me he wants a DNR DNI resuscitation status, which is and son support. Primary care physician is Dr. Marcio Gonzalez. What is your current living situation?: I presently have a place to live Problems where you live: no known problems Problems where you live details: N/A In the past 12 months, utilities in danger of being shut off: no In past 12 months, lack of transportation kept you from medical appts, meetings, work, or getting things needed for daily living: no In the past 12 mos, have been you worried that your food would run out before you had money to buy more?: never true In the past 12 mos, the food you bought just didn't last and you didn't have money to buy more?: never true Highest level of school completed/degree received: 12th grade, no diploma Smoking Status: Current every day smoker What tobacco products do you use: cigarettes Smoking packs per day: 1 Smoking cigarettes per day: 20.0 Years smoked: 60 Smoking pack-years: 60.00 Do you use any of these nicotine containing products: None Second hand tobacco smoke exposure: No How often do you have a drink containing alcohol: 4 or more times a week Alcohol type: hard liquor Alcohol type details: 2-3 drinks/day How many standard drinks containing alcohol do you have on a typical day: 3 or 4 How often do you have six or more drinks on one occasion: Daily or almost daily AUDIT-C Alcohol total score: 9 Non-prescribed substance use: marijuana (any form) Non-prescribed substance use details: pot occassionally Caffeine: Yes How often does anyone, including family, friends and others, physically hurt you: never How often does anyone, including family, friends and others, insult or talk down to you: never How often does anyone, including family, friends and others, threaten you with harm: never How often does anyone, including family, friends and others, scream or curse at you: never Gender Identity: male service: Yes Meds Home Medications and Allergies Home Medications Medication Instructions Recorded Confirmed Type acetaminophen 500 mg capsule 500 - 1,000 mg PO Q6H PRN 10/12/21 01/31/23 History albuterol sulfate 90 mcg/actuation 2 puff inhalation QID PRN 10/12/21 01/31/23 History aerosol inhaler shortness of breath or wheezing atorvastatin 40 mg tablet 40 mg PO HS 10/12/21 01/31/23 History fluticasone fur. 100 mcg-umeclid 1 inh inhalation DAILY 10/12/21 01/31/23 History 62.5 mcg-vilant 25 mcg inhalat.powder (Trelegy Ellipta) furosemide 20 mg tablet 20 mg PO BID@09,16 10/12/21 01/31/23 History potassium chloride 20 mEq 20 meq PO BIDWM 10/12/21 01/31/23 History tablet,extended release tramadol 50 mg tablet 50 mg PO Q12H PRN pain 10/12/21 01/31/23 History Allergies Allergy/AdvReac Type Severity Reaction Status Date / Time codeine Allergy Mild Verified 10/12/21 11:39 oxycodone Allergy Hallucinati Verified 01/29/23 12:33 ng Penicillins Allergy Rash Verified 10/12/21 11:39 dust Allergy Mild Uncoded 10/12/21 11:39 Exam Narrative Exam Narrative: GENERAL: vital signs reviewed, well developed and nourished, in no distress HEENT: pupils are round and reactive to light. Right pupil is slightly larger than the left which I believe is chronic. extraocular movements are grossly within normal limits and oral mucosa is moist. NECK: Supple without lymphadenopathy or thyromegaly according to nursing staff examination observation HEART: Irregularly irregular rate and rhythm consistent with atrial fibrillation with a controlled ventricular response LUNGS: Decreased breath sounds at the bases with wheezes noted throughout ABDOMEN: Observation from nurse assisted exam, abdomen appears soft, nontender, and nondistended with Positive bowel sounds noted. Obesity is noted EXTREMITIES: Strength and sensation is observed to be grossly within normal limits in the upper and lower extremities. No focal strength deficit is observed. He does have chronic bilateral stasis ulcerations which currently are dressed and do not look to be acutely infected. Minimal drainage is noted. SKIN: Observed warm and dry with color normal NEURO: Alert, awake and oriented ?3. Answers all questions appropriately. No focal neuro deficits are noted. PSYCH: Affect constricted. Const Vital Signs, click to edit/add: Vital Signs - 24 hr 07/30/23 22:20 07/30/23 23:02 07/31/23 01:23 Temperature 98.8 F 97.8 F Pulse Rate [Pulse Oximeter] 80 75 Pulse Rate [Right Pulse Oximeter] Respiratory Rate 24 20 24 Blood Pressure [Left Upper Arm] 115/68 119/62 Blood Pressure [Right Arm] Pulse Oximetry 89 92 Oxygen Delivery Method OxyMask OxyMask Oxygen Flow Rate 5 6 07/31/23 01:57 Temperature 97.8 F Pulse Rate [Pulse Oximeter] Pulse Rate [Right Pulse Oximeter] 80 Respiratory Rate 18 Blood Pressure [Left Upper Arm] Blood Pressure [Right Arm] 118/63 Pulse Oximetry 91 Oxygen Delivery Method OxyMask Oxygen Flow Rate 4 Documenting provider has reviewed patient's vital signs: yes Hospitalist - H&P: Result Labs Labs: Short CBC 07/30/23 Range/Units 22:21 WBC 14.36 H (4.50-11.00) K/uL Hgb 10.4 L (13.5-17.5) gm/dL Hct 32.7 L (37.0-53.0) % Plt Count 193 (140-440) K/uL BMP 07/30/23 22:21 Sodium 137 Potassium 4.4 Chloride 104 Carbon Dioxide 30 BUN 19 Creatinine 1.0 Glucose 139 H Calcium 8.5 Cardiac Enzymes 07/30/23 Range/Units 22:21 Troponin I 0.02 (0.01-0.04) ng/mL Liver Function 07/30/23 Range/Units 22:21 Total Bilirubin 0.7 (0.1-1.5) mg/dL AST 23 (12-35) U/L ALT 14 (4-50) U/L Alkaline Phosphatase 113 (40-150) U/L Albumin 4.0 (3.3-5.0) g/dL Urine 07/30/23 Range/Units 23:44 Urine Color Brown A (Yellow) Urine Appearance Cloudy A (Clear) Urine pH 5.5 (5.0-8.5) Ur Specific [facility] 1.025 (1.000-1.030) Urine Protein 3+ A (Negative) Urine Glucose (UA) Negative (Negative) Imaging Chest x-ray: Attestation: I have reviewed the pertinent imaging results. Assessment and Plan Assessment and plan (1) Pneumonia: Status: Acute (2) Acute hypoxemic respiratory failure: Status: Acute Plan Assessment: 1. Weakness with shortness of breath 2. Acute hypoxic respiratory failure requiring oxygen supplementation 3. Leukocytosis and hypoxia consistent with acute community-acquired pneumonia resulting in #1 and #2 above 4. Generalized weakness and deconditioning most likely from #2 and #3 above 5. Ongoing tobacco abuse 6. COPD 7. Obesity with obstructive sleep apnea 8. History of alcohol use disorder 9. Chronic anemia currently at baseline with no sign of acute active bleeding?likely due to chronic disease 10. Chronic atrial fibrillation anticoagulated on Eliquis 11. Recurrent major depressive disorder currently at baseline 12. Bilateral lower extremity stasis ulcers with no sign of acute active infection Plan: At this time, Gen is currently being admitted to the medical service with acute hypoxic respiratory failure. We will continue to supply supplementation as needed to maintain adequate oxygen saturations. It does appear that with his leukocytosis and possible abnormal chest x-ray that he does have signs and symptoms of acute community-acquired pneumonia and I will treat with continued IV Rocephin and oral doxycycline. Will continue to watch his respiratory status closely and hopefully with the IV antibiotics his respiratory status will quickly improve. I will ask for physical therapy and Occupational Therapy to see Gen for evaluation and treatment of his significant weakness and deconditioning with his acute illness. I have counseled him to consider smoking cessation with his COPD and current respiratory status. I will follow-up on chemistries and hematology labs for the a.m. Will ask pharmacy to reconcile his home medications for reinitiation in the a.m. as needed. I have discussed this plan with Gen and he is agreeable to proceed. Will continue to follow closely from medical standpoint. I have discussed CODE STATUS with Gen and he does wish to be a full code. This will be ordered in his chart. Telehealth: Statement Statement Telehealth Visit: Today's History and Physical is provided via interactive telehealth by Gregory Encarnacion MD.? Patient is located at [facility].? Provider is located at [facility].? Nursing staff assisted with the patient's exam. The visit being done today meets criteria for a telehealth visit and the patient or patient?s parent/guardian is aware the visit is a telehealth visit. Camera Start Time: 02:37 Camera End Time: 02:53
[2023-07-31 06:16] LABS: Basophils Percent Auto 0.7 % (0.0-3.0); Eosinophils Percent Auto 0.2 % (0.0-7.0); Hematocrit 32.9 % (37.0-53.0); Hemoglobin* 10.3 gm/dL (13.5-17.5); Immature Granulocytes Pct Auto 1.7 %; Lymphocytes Percent Auto 11.5 % (20-44); Mean Corpuscular HGB Conc 31 gm/dL (32-36); Mean Corpuscular Hemoglobin 31 pg (26-34); Mean Corpuscular Volume 99 fL (80-100); Monocytes Percent Auto 14.7 % (0.0-11.0); Neutrophils Percent Auto 71.2 % (42.0-72.0); Platelet Count* 183 K/uL (140-440); RDW Coefficient of Variation % 15.4 % (11.5-15.5); Red Blood Count 3.32 m/uL (4.30-5.90); White Blood Count* 14.61 K/uL (4.50-11.00)
[2023-07-31 06:22] LABS: Slide Review Reflex No
--- NOTE | 2023-07-31 06:22 | PC.NURSE ---
Patient admitted to floor at 0135. Oriented x 2, confusion to date and time. Patient sleepy this shift but rouses to verbal stimuli. Patient declining medications and oxygen, adjusto writer operator educated on risks vs benefits of medications and oxygen. Patient allowing oxygen and continuous pulse ox. Lung sounds with inspiratory and expiratory wheezing throughout. Per patient he does not use oxygen at home but does use a CPAP at HS. Right lateral ankle dressing intact, no drainage noted. BLE [place] in appearance with non pitting edema.
[2023-07-31] MEDS: ALBUTEROL SULFATE 2.5 MG/3 ML VIAL.NEB NEB ×5 (06:32→21:54)
[2023-07-31 06:35] LABS: Chloride* 106 mmol/L (96-114); Sodium* 139 mmol/L (135-149)
[2023-07-31] MEDS: TRAMADOL HCL 50 MG TABLET PO ×2 (06:35→19:52)
[2023-07-31 06:38] LABS: Anion Gap 2 mEq/L (7-15); Blood Urea Nitrogen* 18 mg/dL (7-30); Calcium* 8.4 mg/dL (8.4-10.6); Carbon Dioxide* 31 mmol/L (20-32); Creatinine* 0.8 mg/dL (0.5-1.5); Est. Creatinine Clearance* 73.94; Estimated Glomerular Filt Rate 91 ml/min; Glucose* 120 mg/dL (60-115)
[2023-07-31 07:45] LABS: HCO3 VBG 33 mmol/L (21-28); PCO2 VBG 59 mmHG (40-50); PO2 VBG 54.2 mmHG (25-47); pH VBG 7.355 (7.32-7.43)
[2023-07-31] MEDS: APIXABAN 5 MG TABLET PO ×2 (09:53→21:48)
[2023-07-31] MEDS: dilTIAZem 180 MG CAP (CD) PO (09:53)
[2023-07-31] MEDS: FUROSEMIDE 20 MG TABLET PO ×2 (09:53→15:30)
[2023-07-31] MEDS: SODIUM CHLORIDE 0.9 % (FLUSH) 10 ML SYRINGE 5 ML IVF ×2 (09:54→21:49)
[2023-07-31] MEDS: cefTRIAXone 2 GM in 0.9 % SODIUM CHLORIDE Mini-bag 100 ML IVPB (13:08)
[2023-07-31] MEDS: ACETIC ACID 1,000 ML IRR 0.25% 1 APPLIC IRRIGATION (15:18)
--- NOTE | 2023-07-31 15:20 | PM.IMHP1 ---
Hospitalist- H&P: HPI History of Present Illness Date Seen: 07/31/23 Chief complaint: weakness Narrative: Andrew Shields is a 77 year old male [facility] Medical History (Updated 07/31/23 @ 03:21 by Gregory Encarnacion MD) Atrial fibrillation and flutter ?I48.91 - Unspecified atrial fibrillation (ICD-10) ?I48.92 - Unspecified atrial flutter (ICD-10) Alcohol use disorder ?F10.90 - Alcohol use, unspecified, uncomplicated (ICD-10) Aneurysm of right internal iliac artery ?I72.3 - Aneurysm of iliac artery (ICD-10) Recurrent major depressive disorder ?F33.9 - Major depressive disorder, recurrent, unspecified (ICD-10) Hepatic steatosis ?K76.0 - Fatty (change of) liver, not elsewhere classified (ICD-10) Chronic left-sided low back pain ?M54.50 - Low back pain, unspecified (ICD-10) ?G89.29 - Other chronic pain (ICD-10) Erectile dysfunction ?N52.9 - Male erectile dysfunction, unspecified (ICD-10) Degenerative joint disease (DJD) of lumbar spine ?M47.816 - Spondylosis without myelopathy or radiculopathy, lumbar region (ICD-10) Adenomatous colon polyp ?D12.6 - Benign neoplasm of colon, unspecified (ICD-10) Chronic heart failure with preserved ejection fraction (HFpEF) ?I50.32 - Chronic diastolic (congestive) heart failure (ICD-10) Tobacco abuse disorder ?Z72.0 - Tobacco use (ICD-10) Venous stasis ulcer ?I83.009 - Varicose veins of unspecified lower extremity with ulcer of unspecified site (ICD-10) ?L97.909 - Non-pressure chronic ulcer of unspecified part of unspecified lower leg with unspecified severity (ICD-10) Venous stasis dermatitis of both lower extremities ?I87.2 - Venous insufficiency (chronic) (peripheral) (ICD-10) Obesity ?E66.9 - Obesity, unspecified (ICD-10) Lung nodule ?R91.1 - Solitary pulmonary nodule (ICD-10) Chest pain ?R07.9 - Chest pain, unspecified (ICD-10) Cellulitis ?L03.90 - Cellulitis, unspecified (ICD-10) CVA (cerebral vascular accident) ?I63.9 - Cerebral infarction, unspecified (ICD-10) Obstructive sleep apnea ?G47.33 - Obstructive sleep apnea (adult) (pediatric) (ICD-10) Chronic respiratory failure ?J96.10 - Chronic respiratory failure, unspecified whether with hypoxia or hypercapnia (ICD-10) Pneumonia ?J18.9 - Pneumonia, unspecified organism (ICD-10) COPD (chronic obstructive pulmonary disease) ?J44.9 - Chronic obstructive pulmonary disease, unspecified (ICD-10) Surgical History Status post left knee replacement ?Z96.652 - Presence of left artificial knee joint (ICD-10) Status post right knee replacement ?Z96.651 - Presence of right artificial knee joint (ICD-10) History of colonoscopy ?Z98.890 - Other specified postprocedural states (ICD-10) Family History Sister Breast cancer Brain cancer Father Skin cancer Brother Heart disease Mother Heart disease Other Diabetes Social History Narrative: . Lives with . Continues to smoke a minimum 1 pack per day of cigarettes. At least a 60 pack-year history of smoking. Drinks a minimal of 2-3 servings of vodka daily. Denies alcohol withdrawal symptoms. Denies any other street or recreational drugs. Does not want to be kept alive as a vegetable. On 11/08/2022 he tells me he wants a DNR DNI resuscitation status, which is and son support. Primary care physician is Dr. Marcio Gonzalez. What is your current living situation?: I presently have a place to live Problems where you live: no known problems Problems where you live details: NA In the past 12 months, utilities in danger of being shut off: no In past 12 months, lack of transportation kept you from medical appts, meetings, work, or getting things needed for daily living: no In the past 12 mos, have been you worried that your food would run out before you had money to buy more?: never true In the past 12 mos, the food you bought just didn't last and you didn't have money to buy more?: never true Highest level of school completed/degree received: 12th grade, no diploma Smoking Status: Current every day smoker What tobacco products do you use: cigarettes Smoking packs per day: 1 Smoking cigarettes per day: 20.0 Years smoked: 60 Smoking pack-years: 60.00 Do you use any of these nicotine containing products: None Second hand tobacco smoke exposure: No How often do you have a drink containing alcohol: 4 or more times a week Alcohol type: beer Alcohol type details: 2-3 drinks/day How many standard drinks containing alcohol do you have on a typical day: 1 or 2 How often do you have six or more drinks on one occasion: Never AUDIT-C Alcohol total score: 4 Non-prescribed substance use: denies use Non-prescribed substance use details: pot occassionally Caffeine: Yes How often does anyone, including family, friends and others, physically hurt you: never How often does anyone, including family, friends and others, insult or talk down to you: never How often does anyone, including family, friends and others, threaten you with harm: never How often does anyone, including family, friends and others, scream or curse at you: never Gender Identity: male service: Yes Meds Home Medications and Allergies Home Medications Medication Instructions Recorded Confirmed Type acetaminophen 500 mg capsule 500 - 1,000 mg PO Q6H PRN 10/12/21 07/31/23 History atorvastatin 40 mg tablet 40 mg PO HS 10/12/21 07/31/23 History fluticasone fur. 100 mcg-umeclid 1 inh inhalation DAILY 10/12/21 07/31/23 History 62.5 mcg-vilant 25 mcg inhalat.powder (Trelegy Ellipta) furosemide 20 mg tablet 20 mg PO BID@09,16 10/12/21 07/31/23 History tramadol 50 mg tablet 50 mg PO Q12H PRN pain 10/12/21 07/31/23 History aspirin 81 mg tablet,delayed 81 mg PO HS 07/31/23 07/31/23 History release (Adult Low Dose Aspirin) brimonidine 0.2 % eye drops 1 drp ophthalmic (eye-left) BID 07/31/23 07/31/23 History latanoprost 0.005 % eye drops 1 drp ophthalmic (eye) QPM 07/31/23 07/31/23 History mirtazapine 7.5 mg tablet 7.5 mg PO QPM 07/31/23 07/31/23 History potassium chloride 20 mEq 20 meq PO BID 07/31/23 07/31/23 History tablet,extended release(part/cryst) (Robor-Con M) Allergies Allergy/AdvReac Type Severity Reaction Status Date / Time codeine Allergy Mild Verified 10/12/21 11:39 oxycodone Allergy Hallucinati Verified 01/29/23 12:33 ng Penicillins Allergy Rash Verified 10/12/21 11:39 dust Allergy Mild Uncoded 10/12/21 11:39 Exam Const: Vital Signs, click to edit/add: Vital Signs - 24 hr 07/30/23 22:20 07/30/23 23:02 07/31/23 01:23 Temperature 98.8 F 97.8 F Pulse Rate [Pulse Oximeter] 80 75 Pulse Rate [Right Pulse Oximeter] Respiratory Rate 24 20 24 Blood Pressure [Le ft Upper Arm] 115/68 119/62 Blood Pressure [Ri ght Arm] Pulse Oximetry 89 92 Oxygen Delivery Me thod OxyMask OxyMask Oxygen Flow Rate 5 6 07/31/23 01:57 07/31/23 01:57 07/31/23 02:59 Temperature 97.8 F Pulse Rate [Pulse Oximeter] Pulse Rate [Right Pulse Oximeter] 80 Respiratory Rate 18 18 Blood Pressure [Le ft Upper Arm] Blood Pressure [Ri ght Arm] 118/63 Pulse Oximetry 91 89 89 Oxygen Delivery Me thod OxyMask Nasal Cannula Oxygen Flow Rate 4 5 07/31/23 03:00 07/31/23 07:49 07/31/23 07:50 Temperature 98.5 F 99.5 F Pulse Rate [Pulse Oximeter] Pulse Rate [Right Pulse Oximeter] 77 80 Respiratory Rate 22 20 20 Blood Pressure [Le ft Upper Arm] Blood Pressure [Ri ght Arm] 124/64 136/66 Pulse Oximetry 88 95 95 Oxygen Delivery Me thod Nasal Cannula OxyMask OxyMask Oxygen Flow Rate 5 4 4 07/31/23 11:53 07/31/23 15:05 Temperature 98.7 F 98.9 F Pulse Rate [Pulse Oximeter] Pulse Rate [Right Pulse Oximeter] 83 78 Respiratory Rate 20 18 Blood Pressure [Le ft Upper Arm] Blood Pressure [Ri ght Arm] 125/61 126/58 L Pulse Oximetry 91 91 Oxygen Delivery Me thod OxyMask OxyMask Oxygen Flow Rate 4 4 Hospitalist - H&P: Result Labs Labs: Short CBC 07/30/23 07/31/23 Range/Units 22:21 05:45 WBC 14.36 H 14.61 H (4.50-11.00) K/uL Hgb 10.4 L 10.3 L (13.5-17.5) gm/dL Hct 32.7 L 32.9 L (37.0-53.0) % Plt Count 193 183 (140-440) K/uL BMP 07/30/23 07/31/23 22:21 05:45 Sodium 137 139 Potassium 4.4 4.0 Chloride 104 106 Carbon Dioxide 30 31 BUN 19 18 Creatinine 1.0 0.8 Glucose 139 H 120 H Calcium 8.5 8.4 Cardiac Enzymes 07/30/23 Range/Units 22:21 Troponin I 0.02 (0.01-0.04) ng/mL Liver Function 07/30/23 Range/Units 22:21 Total Bilirubin 0.7 (0.1-1.5) mg/dL AST 23 (12-35) U/L ALT 14 (4-50) U/L Alkaline Phosphatase 113 (40-150) U/L Albumin 4.0 (3.3-5.0) g/dL Urine 07/30/23 Range/Units 23:44 Urine Color Brown A (Yellow) Urine Appearance Cloudy A (Clear) Urine pH 5.5 (5.0-8.5) Ur Specific [place] 1.025 (1.000-1.030) Urine Protein 3+ A (Negative) Urine Glucose (UA) Negative (Negative)
--- NOTE | 2023-07-31 15:21 | P.IMPN_ITS ---
Progress Note: A&P Assessment and plan (1) Acute hypoxemic respiratory failure: Problem details: - I suspect he has acute on chronic hypoxic respiratory failure and with the pneumonia it is quite exacerbated Status: Acute (2) Pneumonia: Problem details: - continue with ceftriaxone IV and doxycycline orally Status: Acute (3) Weakness: Problem details: - treat the pneumonia. - work with physical and occupational therapy Status: Acute (4) Acute on chronic respiratory failure with hypoxemia: Problem details: - Hypoxia on admission. Likely multifactorial from underlying COPD, pneumonia, and heart failure Status: Acute (5) Tobacco abuse disorder: Problem details: Currently smokes a minimum of 1 pack per day. Pre contemplative about quitting. Greater than 60 pack-year history. Status: Acute (6) COPD (chronic obstructive pulmonary disease): Problem details: Advanced. Refuses quit smoking. Consider COPD exacerbation treatment if condition is not improving. Status: Acute (7) Obstructive sleep apnea: Problem details: Uses CPAP at home. Asked to bring in his CPAP machine, which she agreed to do. Status: Acute (8) Alcohol use disorder: Problem details: Drinks alcoholic beverages daily, minimal of 2 servings of vodka daily, not infrequently 3-4 servings per day. He was advised to stop drinking due to the toxic effects of alcohol on his heart and heart rhythm and he reports he intends to be abstinent from alcohol. Status: Acute (9) Chronic heart failure with preserved ejection fraction (HFpEF): Problem details: - Transthoracic echocardiogram 10/12/2021: Normal LV size, moderate LVH, normal systolic function, EF 63%. Mild bi-atrial enlargement. Sclerotic aortic valve without stenosis or regurgitation. Borderline dilated ascending aorta with maximal diameter of 3.8 cm. Borderline dilated aortic sinus with maximal diameter of 4 cm. - continue with usual dose of diuretic, furosemide 20 mg twice daily, for now. Consider increasing dose. Status: Acute (10) Venous stasis dermatitis of both lower extremities: Problem details: - Chronic. - continue with wound care orders Status: Acute Plan 1. Reviewed impression with patient and his son. 2. Answered their questions. 3. They are agreeable to above stated plans and recommendations Time Spent With Patient Total time spent: 45 minutes Subjective Date Seen: 07/31/23 Interval history: Hospital day 1. History of present illness: ?...77 year old male who presented to the emergency room with increased weakness and shortness of breath. Gen has a significant past medical history of atrial fibrillation currently anticoagulated on Eliquis, depression, chronic low back pain, tobacco abuse, obesity, peripheral vascular disease with chronic lower extremity stasis ulcerations, COPD and obstructive sleep apnea on home CPAP. Gen states that he spent most of the day in [place] as he was there to have his vision checked. Apparently he had some cataract surgery and continues to have some difficulty with his vision. He is somewhat poor most of the history is achieved through the emergency room provider. Apparently, over the last few days Gen has been having some increased weakness. I believe his called the ambulance today as he was unable to get up and do his ADLs. Gen seems to be a somewhat poor historian, but denies any recent cough or cold type symptoms. He denies any fever or chills. Upon presentation the emergency room, he was noted to be quite hypoxic with low oxygen saturations in the 70s. He was also noted to have a leukocytosis and possible infiltrate noted on chest x-ray. He does admit to continuing to smoke at least 24 cigarettes/day. He does go to wound clinic regularly to tend to his bilateral lower extremity stasis ulcer wou nds. With his increased demand for oxygen supplementation with his acute hypoxic respiratory failure, he is currently being admitted to the medical service for further evaluation and treatment. As I visit him later in the morning he indicates his breathing feels improved. Is requiring oxygen supplementation with 4-6 liters/minute via nasal cannula continuously to maintain oxygen saturations greater than or equal to 85%. Cough is persistent. Denies fevers, rigors, diaphoresis. Denies chest pain, heaviness, pressure, or tightness. Denies syncope or near-syncope. Denies chest palpitations or fluttering. Exam Narrative: Exam Narrative: Examine him in his hospital room. Appears comfortable. No acute distress. Oxygen at 4 liters/minute via nasal cannula continuously. Saturations 86%. Vision and hearing are adequate. Lungs with scattered rhonchi and wheezing. Heart tones with normal S1-S2. Abdomen with active bowel sounds, soft, nontender. Extremities with chronic edema, stasis dermatitis, dressing over wound. Const: Vital Signs, click to edit/add: Vital Signs - 24 hr 07/30/23 22:20 07/30/23 23:02 07/31/23 01:23 Temperature 98.8 F 97.8 F Pulse Rate [Pulse Oximeter] 80 75 Pulse Rate [Right Pulse Oximeter] Respiratory Rate 24 20 24 Blood Pressure [Le ft Upper Arm] 115/68 119/62 Blood Pressure [Ri ght Arm] Pulse Oximetry 89 92 Oxygen Delivery Me thod OxyMask OxyMask Oxygen Flow Rate 5 6 07/31/23 01:57 07/31/23 01:57 07/31/23 02:59 Temperature 97.8 F Pulse Rate [Pulse Oximeter] Pulse Rate [Right Pulse Oximeter] 80 Respiratory Rate 18 18 Blood Pressure [Le ft Upper Arm] Blood Pressure [Ri ght Arm] 118/63 Pulse Oximetry 91 89 89 Oxygen Delivery Me thod OxyMask Nasal Cannula Oxygen Flow Rate 4 5 07/31/23 03:00 07/31/23 07:49 07/31/23 07:50 Temperature 98.5 F 99.5 F Pulse Rate [Pulse Oximeter] Pulse Rate [Right Pulse Oximeter] 77 80 Respiratory Rate 22 20 20 Blood Pressure [Le ft Upper Arm] Blood Pressure [Ri ght Arm] 124/64 136/66 Pulse Oximetry 88 95 95 Oxygen Delivery Me thod Nasal Cannula OxyMask OxyMask Oxygen Flow Rate 5 4 4 07/31/23 11:53 07/31/23 15:05 Temperature 98.7 F 98.9 F Pulse Rate [Pulse Oximeter] Pulse Rate [Right Pulse Oximeter] 83 78 Respiratory Rate 20 18 Blood Pressure [Le ft Upper Arm] Blood Pressure [Ri ght Arm] 125/61 126/58 L Pulse Oximetry 91 91 Oxygen Delivery Me thod OxyMask OxyMask Oxygen Flow Rate 4 4 Labs Labs: Laboratory Results - last 24 hr 07/30/23 07/30/23 07/30/23 22:21 23:04 23:44 WBC 14.36 H RBC 3.36 L Hgb 10.4 L Hct 32.7 L MCV 97 MCH 31 MCHC 32 RDW Coeff of Alejandra 15.3 Plt Count 193 Neut % (Auto) 74.5 H Lymph % (Auto) 10.9 L [place] % (Auto) 11.8 H Eos % (Auto) 0.3 Baso % (Auto) 0.7 Neut # (Auto) 10.70 H Lymph # (Auto) 1.60 [place] # (Auto) 1.70 H Eos # (Auto) 0.00 Baso # (Auto) 0.10 Abs Immat Gran (auto) 0.30 Imm/Tot Granulo (auto) 1.8 VBG pH 7.38 VBG pCO2 51 H VBG pO2 61.5 H VBG HCO3 31 H Sodium 137 Potassium 4.4 Chloride 104 Carbon Dioxide 30 Anion Gap 3 L BUN 19 Creatinine 1.0 Estimated Creat Clear Estimated GFR 78 Glucose 139 H Lactate 1.0 Calcium 8.5 Total Bilirubin 0.7 AST 23 ALT 14 Alkaline Phosphatase 113 Troponin I 0.02 NT-Pro-B Natriuret Pep 418 Total Protein 8.0 Albumin 4.0 Urine Color Brown A Urine Appearance Cloudy A Urine pH 5.5 Ur Specific [place] 1.025 Urine Protein 3+ A Urine Glucose (UA) Negative Urine Ketones Negative Urine Blood 1+ A Urine Nitrite Positive A Urine Bilirubin Negative Urine Urobilinogen 0.2 Ur Leukocyte Esterase 1+ A Urine RBC 0-2 Urine WBC 2-5 Ur Squamous Epith Cells Few Urine Bacteria Moderate A SARS-CoV-2 (PCR) Negative SARS-CoV-2 Influenza Type A (PCR) Negative PCR FLU A Influenza Type B (PCR) Negative PCR FLU B RSV (PCR) Negative PCR RSV 07/31/23 07/31/23 05:45 07:40 WBC 14.61 H RBC 3.32 L Hgb 10.3 L Hct 32.9 L MCV 99 MCH 31 MCHC 31 L RDW Coeff of Alejandra 15.4 Plt Count 183 Neut % (Auto) 71.2 Lymph % (Auto) 11.5 L [place] % (Auto) 14.7 H Eos % (Auto) 0.2 Baso % (Auto) 0.7 Neut # (Auto) 10.40 H Lymph # (Auto) 1.70 [place] # (Auto) 2.10 H Eos # (Auto) 0.00 Baso # (Auto) 0.10 Abs Immat Gran (auto) 0.20 Imm/Tot Granulo (auto) 1.7 VBG pH 7.355 VBG pCO2 59 H VBG pO2 54.2 H VBG HCO3 33 H Sodium 139 Potassium 4.0 Chloride 106 Carbon Dioxide 31 Anion Gap 2 L BUN 18 Creatinine 0.8 Estimated Creat Clear 73.94 Estimated GFR 91 Glucose 120 H Lactate Calcium 8.4 Total Bilirubin AST ALT Alkaline Phosphatase Troponin I NT-Pro-B Natriuret Pep Total Protein Albumin Urine Color Urine Appearance Urine pH Ur Specific [place] Urine Protein Urine Glucose (UA) Urine Ketones Urine Blood Urine Nitrite Urine Bilirubin Urine Urobilinogen Ur Leukocyte Esterase Urine RBC Urine WBC Ur Squamous Epith Cells Urine Bacteria SARS-CoV-2 (PCR) Influenza Type A (PCR) Influenza Type B (PCR) RSV (PCR)
--- NOTE | 2023-07-31 19:24 | PC.NURSE ---
Pt alert and oriented. Pt had no complaints of a pain. Pt?s saturation goal is 85-90% per MD; maintained with 3-5 Liter?s via oxymask. Wound care completed around 15 with RN and business planning analyst. Per business planning analyst if Pt is still admitted on 08/01/22 staff are to consult with Shyann ALMARAZ from wound care as that is the Pt?s next appointment. Pt is an assist of 1-2 with walker and gait belt.?
--- NOTE | 2023-07-31 20:50 | PC.NURSE ---
Home CPAP brought in by . I have looked at the machine and it is intact and clean.
[2023-07-31] MEDS: BRIMONIDINE TARTRATE 0.2% OPHTH 1 DROP EYE-LEFT (21:48)
[2023-07-31] MEDS: LATANOPROST 0.005% OPHTH 1 DROP EYE-BOTH (21:48)
[2023-08-01] VITALS (7 sets, daily range): BP systolic 119–135; BP diastolic 54–63; PULSE 66–79; RESP 18–24; TEMP 36.6–36.8; O2SAT 87–92
[2023-08-01] MEDS: cefTRIAXone 2 GM in 0.9 % SODIUM CHLORIDE Mini-bag 100 ML IVPB ×2 (00:44→20:31)
[2023-08-01] MEDS: ALBUTEROL SULFATE 2.5 MG/3 ML VIAL.NEB NEB ×4 (06:00→22:59)
--- NOTE | 2023-08-01 06:34 | PC.NURSE ---
[id number]: Patient irritated and resistant to cares, frequently using foul language toward staff. A1/walker/GB. SOB w/activity. 4 Lt NC while awake and CPAP w/4-6 Lt overnight to maintain O2>85%. Afebrile. Patient expressed not wanting to be awakened during noc. Nurse honored patients wishes checking in frequently, monitoring continuos pulse ox and respirations.
[2023-08-01] MEDS: FUROSEMIDE 20 MG TABLET PO ×2 (08:48→16:17)
[2023-08-01] MEDS: APIXABAN 5 MG TABLET PO ×2 (08:48→20:31)
[2023-08-01] MEDS: dilTIAZem 180 MG CAP (CD) PO (08:48)
[2023-08-01] MEDS: DOXYCYCLINE HYCLATE 100 MG PO ×2 (08:48→20:31)
[2023-08-01] MEDS: SODIUM CHLORIDE 0.9 % (FLUSH) 10 ML SYRINGE 5 ML IVF ×2 (08:49→20:33)
[2023-08-01] MEDS: Fluticasone-Umeclidin-Vilanter [Trelegy Ellipta] 100-62.5-25 mcg IH (08:49)
[2023-08-01] MEDS: BRIMONIDINE TARTRATE 0.2% OPHTH 1 DROP EYE-LEFT ×2 (08:50→20:31)
[2023-08-01] MEDS: TRAMADOL HCL 50 MG TABLET PO ×2 (08:54→22:59)
[2023-08-01 09:20] LABS: HCO3 VBG 35 mmol/L (21-28); PCO2 VBG 60 mmHG (40-50); pH VBG 7.368 (7.32-7.43)
[2023-08-01 09:21] LABS: Hematocrit 31.7 % (37.0-53.0); Hemoglobin* 9.8 gm/dL (13.5-17.5); Mean Corpuscular HGB Conc 31 gm/dL (32-36); Mean Corpuscular Hemoglobin 31 pg (26-34); Mean Corpuscular Volume 100 fL (80-100); Platelet Count* 165 K/uL (140-440); Red Blood Count 3.18 m/uL (4.30-5.90); Slide Review Reflex No; White Blood Count* 10.08 K/uL (4.50-11.00)
--- NOTE | 2023-08-01 09:34 | RESP.RT ---
Patient spo2 81% on room air, 15 lpm oxymizer to keep spo2 86-88% with activity. Patient states he has a home oxygen concentrator. He uses his cpap frequently during the day and night. Updated RN and MD.
[2023-08-01 09:36] LABS: Albumin* 3.8 g/dL (3.3-5.0); Chloride* 103 mmol/L (96-114); Potassium* 4.2 mmol/L (3.6-5.1); Sodium* 141 mmol/L (135-149)
[2023-08-01 09:38] LABS: Creatinine* 0.9 mg/dL (0.5-1.5); Est. Creatinine Clearance* 73.94; Estimated Glomerular Filt Rate 88 ml/min
[2023-08-01 09:39] LABS: Anion Gap 3 mEq/L (7-15); Blood Urea Nitrogen* 17 mg/dL (7-30); Carbon Dioxide* 35 mmol/L (20-32); Glucose* 119 mg/dL (60-115); Phosphorus* 3.2 mg/dL (2.5-4.5)
[2023-08-01 09:40] LABS: Calcium* 8.6 mg/dL (8.4-10.6)
[2023-08-01 09:42] LABS: C Reactive Protein* 7.6 mg/dL (0.5-1.0)
--- NOTE | 2023-08-01 15:09 | PM.IMPN1 ---
Progress Note: A&P Assessment and plan (1) Acute hypoxemic respiratory failure: Problem details: - I suspect he has acute on chronic hypoxic respiratory failure and with the pneumonia it is quite exacerbated - working with respiratory therapy to consider various options for home oxygen prescription when the time does come for him to be able to safely leave the hospital. Status: Acute (2) Pneumonia: Problem details: - continue with ceftriaxone IV and doxycycline orally Status: Acute (3) Weakness: Problem details: - treat the pneumonia. - work with physical and occupational therapy Status: Acute (4) Acute on chronic respiratory failure with hypoxemia: Problem details: - Hypoxia on admission. Likely multifactorial from underlying COPD, pneumonia, and heart failure Status: Acute (5) Tobacco abuse disorder: Problem details: Currently smokes a minimum of 1 pack per day. Pre contemplative about quitting. Greater than 60 pack-year history. Status: Acute (6) COPD (chronic obstructive pulmonary disease): Problem details: Advanced. Refuses quit smoking. Consider COPD exacerbation treatment if condition is not improving. Status: Acute (7) Obstructive sleep apnea: Problem details: Uses CPAP at home. Asked to bring in his CPAP machine, which she agreed to do. Status: Acute (8) Alcohol use disorder: Problem details: Drinks alcoholic beverages daily, minimal of 2 servings of vodka daily, not infrequently 3-4 servings per day. He was advised to stop drinking due to the toxic effects of alcohol on his heart and heart rhythm and he reports he intends to be abstinent from alcohol. Status: Acute (9) Chronic heart failure with preserved ejection fraction (HFpEF): Problem details: - Transthoracic echocardiogram 10/12/2021: Normal LV size, moderate LVH, normal systolic function, EF 63%. Mild bi-atrial enlargement. Sclerotic aortic valve without stenosis or regurgitation. Borderline dilated ascending aorta with maximal diameter of 3.8 cm. Borderline dilated aortic sinus with maximal diameter of 4 cm. - continue with usual dose of diuretic, furosemide 20 mg twice daily, for now. Consider increasing dose. Status: Acute (10) Venous stasis dermatitis of both lower extremities: Problem details: - Chronic. 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 Status: Acute Plan 1. Visited with the patient. 2. Visited with his . 3. Continue with current efforts. 4. will try to obtain information about his CPAP prescription and oxygen prescription and provide that information to us. 5. Continue to work with respiratory therapy. Time Spent With Patient Total time spent: 50 min Subjective Date Seen: 08/01/23 Interval history: Hospital day to. History of present illness: ?...77 year old male who presented to the emergency room with increased weakness and shortness of breath. Gen has a significant past medical history of atrial fibrillation currently anticoagulated on Eliquis, depression, chronic low back pain, tobacco abuse, obesity, peripheral vascular disease with chronic lower extremity stasis ulcerations, COPD and obstructive sleep apnea on home CPAP. Gen states that he spent most of the day in [place] as he was there to have his vision checked. Apparently he had some cataract surgery and continues to have some difficulty with his vision. He is somewhat poor most of the history is achieved through the emergency room provider. Apparently, over the last few days Gen has been having some increased weakness. I believe his called the ambulance today as he was unable to get up and do his ADLs. Gen seems to be a somewhat poor historian, but denies any recent cough or cold type symptoms. He denies any fever or chills. Upon presentation the emergency room, he was noted to be quite hypoxic with low oxygen saturations in the 70s. He was also noted to have a leukocytosis and possible infiltrate noted on chest x-ray. He does admit to continuing to smoke at least 24 cigarettes/day. He does go to wound clinic regularly to tend to his bilateral lower extremity stasis ulcer wounds. With his increased demand for oxygen supplementation with his acute hypoxic respiratory failure, he is currently being admitted to the medical service for further evaluation and treatment. Patient continues to require half the amount of oxygen supplementation. This morning he is on his CPAP with oxygen bleed in at 5 liters/minute to maintain oxygen saturations of 85% or greater. We take him off of the CPAP and oxygen and within a minute his saturations dropped to 80%. In order to stabilize his oxygen saturations at 85% or higher we placed him on a non-rebreather mask with oxygen supplementation at 15 liters/minute via nasal cannula continuously. He expresses desire to leave the hospital as soon as possible. He makes statements such as he had just wants to go outside for a little bit and maybe smoke a cigarette. Cough is less productive although still present. On the 1 hand he denies dyspnea on the other he certainly has tachypnea. Exam Narrative: Exam Narrative: Examined in his room. Appears to be in no acute distress. Vision and hearing are adequate. Alert and oriented to self, place, time, and in part to situation. Neck is full. Midline trachea. No head neck lymphadenopathy. Lungs with less rhonchi and wheezing. Dije-bw-zxscviyo rales right base. No CVA tenderness. Chest wall excursions are full. Heart tones with chaotic rhythm, normal S1-S2. No obvious murmur, gallop, rub. Extremities with trace edema bilaterally. Moves all 4 extremities. No focal motor neurologic deficit. Const: Vital Signs, click to edit/add: Vital Signs - 24 hr 07/31/23 15:45 07/31/23 19:56 07/31/23 21:56 Temperature 98.9 F 98.9 F Pulse Rate [Right Pulse Oximeter] 79 77 Respiratory Rate 18 22 20 Blood Pressure [Ri ght Arm] 126/49 L 133/64 Pulse Oximetry 91 90 90 Oxygen Delivery Me thod OxyMask Nasal Cannula Nasal Cannula Oxygen Flow Rate 4 4.0 4.0 07/31/23 23:00 08/01/23 01:58 08/01/23 03:00 Temperature Pulse Rate [Right Pulse Oximeter] 66 Respiratory Rate 20 20 Blood Pressure [Ri ght Arm] Pulse Oximetry 90 87 L 87 L Oxygen Delivery Me thod CPAP CPAP Oxygen Flow Rate 4.0 4.0 08/01/23 08:45 08/01/23 08:45 08/01/23 11:32 Temperature 98.1 F 97.9 F Pulse Rate [Right Pulse Oximeter] 73 79 Respiratory Rate 20 20 18 Blood Pressure [Ri ght Arm] 121/57 L 119/54 L Pulse Oximetry 90 90 92 Oxygen Delivery Me thod CPAP CPAP Nasal Cannula Oxygen Flow Rate Labs Labs: Laboratory Results - last 24 hr 08/01/23 09:12 WBC 10.08 RBC 3.18 L Hgb 9.8 L Hct 31.7 L MCV 100 MCH 31 MCHC 31 L Plt Count 165 VBG pH 7.368 VBG pCO2 60 H VBG pO2 35.0 VBG HCO3 35 H Sodium 141 Potassium 4.2 Chloride 103 Carbon Dioxide 35 H Anion Gap 3 L BUN 17 Creatinine 0.9 Estimated Creat Clear 73.94 Estimated GFR 88 Glucose 119 H Calcium 8.6 Phosphorus 3.2 C-Reactive Protein 7.6 H Albumin 3.8
[2023-08-01] MEDS: MIRTAZAPINE 15 MG TABLET 7.5 MG PO (19:45)
[2023-08-01] MEDS: LATANOPROST 0.005% OPHTH 1 DROP EYE-BOTH (20:31)
[2023-08-02 02:00] VITALS: O2SAT 89
[2023-08-02 02:50] VITALS: BP 115/57; PULSE 72; RESP 22; TEMP 36.8; O2SAT 89
[2023-08-02] MEDS: ACETAMINOPHEN 500 MG TABLET 1000 MG PO (06:16)
[2023-08-02] MEDS: ALBUTEROL SULFATE 2.5 MG/3 ML VIAL.NEB NEB ×2 (06:16→11:06)
[2023-08-02 06:36] LABS: HCO3 VBG 35 mmol/L (21-28); PO2 VBG 41.6 mmHG (25-47); pH VBG 7.364 (7.32-7.43)
--- NOTE | 2023-08-02 06:36 | PC.NURSE ---
End of shift report [id number]:Patient cooperative with cares, did refuse 2 nebulizer treatments. O2 bleed into CPAP at 5L overnight and sats maintained between 87-91%, at 0300 patient up in chair and Oxymizer mask placed on at 5L and patient continued to maintain sats >87% throughout the night. Intermittent cough, denies coughing up any sputum. Continues with inspiratory and expiratory wheezing and coarse crackles in the bases. Up with stand by assist with walker. present at beside at HS and information given regarding home CPAP company, [employer] with Dr. Gonzalez signing orders for settings. Information given to charge nurse.
[2023-08-02 06:41] LABS: PCO2 VBG 61 mmHG (40-50)
[2023-08-02 06:47] LABS: Hemoglobin* 9.3 gm/dL (13.5-17.5)
[2023-08-02 07:57] VITALS: BP 123/60; PULSE 73; RESP 16; TEMP 37.2; O2SAT 87
[2023-08-02] MEDS: DOXYCYCLINE HYCLATE 100 MG PO (09:08)
[2023-08-02] MEDS: dilTIAZem 180 MG CAP (CD) PO (09:08)
[2023-08-02] MEDS: FUROSEMIDE 20 MG TABLET PO ×2 (09:09→16:31)
[2023-08-02] MEDS: BRIMONIDINE TARTRATE 0.2% OPHTH 1 DROP EYE-LEFT (09:09)
[2023-08-02] MEDS: APIXABAN 5 MG TABLET PO (09:09)
[2023-08-02] MEDS: Fluticasone-Umeclidin-Vilanter [Trelegy Ellipta] 100-62.5-25 mcg IH (09:09)
[2023-08-02] MEDS: SODIUM CHLORIDE 0.9 % (FLUSH) 10 ML SYRINGE 5 ML IVF (09:11)
[2023-08-02 11:03] VITALS: BP 127/57; PULSE 69; RESP 24; TEMP 36.9; O2SAT 88
--- NOTE | 2023-08-02 12:53 | PM.WSCN ---
Date of Consult Consult date: 08/02/23 Requesting Physician: Hospitalist Primary Care Provider: Marcio Gonzalez MD Consult Narrative Reason for consult: wound center patient admitted with chronic RLE VLU Narrative: Andrew Shields is a 77 year old male known to Wound Services currently hospitalized undergoing treatment of pneumonia. Plan for patient to discharge today home on oxygen. Patient has chronic venous ulceration to right lower extremity lateral aspect. Wound has improved over time. Patient had a fall prior to his hospitalization for pneumonia, nursing concern that trauma to the wound may have occurred. Patient was scheduled in the wound center today for his wound care f/u. Review of Systems Status of ROS: Reports: 6 or more systems reviewed and unremarkable except as noted in History and below [facility] Medical History (Updated 08/02/23 @ 13:59 by Fatuma Tamez [facility]) Acute on chronic respiratory failure with hypoxia and hypercapnia ?J96.21 - Acute and chronic respiratory failure with hypoxia (ICD-10) ?J96.22 - Acute and chronic respiratory failure with hypercapnia (ICD-10) Venous stasis dermatitis of both lower extremities ?I87.2 - Venous insufficiency (chronic) (peripheral) (ICD-10) Atrial fibrillation and flutter ?I48.91 - Unspecified atrial fibrillation (ICD-10) ?I48.92 - Unspecified atrial flutter (ICD-10) Alcohol use disorder ?F10.90 - Alcohol use, unspecified, uncomplicated (ICD-10) Aneurysm of right internal iliac artery ?I72.3 - Aneurysm of iliac artery (ICD-10) Recurrent major depressive disorder ?F33.9 - Major depressive disorder, recurrent, unspecified (ICD-10) Hepatic steatosis ?K76.0 - Fatty (change of) liver, not elsewhere classified (ICD-10) Chronic left-sided low back pain ?M54.50 - Low back pain, unspecified (ICD-10) ?G89.29 - Other chronic pain (ICD-10) Erectile dysfunction ?N52.9 - Male erectile dysfunction, unspecified (ICD-10) Degenerative joint disease (DJD) of lumbar spine ?M47.816 - Spondylosis without myelopathy or radiculopathy, lumbar region (ICD-10) Adenomatous colon polyp ?D12.6 - Benign neoplasm of colon, unspecified (ICD-10) Chronic heart failure with preserved ejection fraction (HFpEF) ?I50.32 - Chronic diastolic (congestive) heart failure (ICD-10) Tobacco abuse disorder ?Z72.0 - Tobacco use (ICD-10) Venous stasis ulcer ?I83.009 - Varicose veins of unspecified lower extremity with ulcer of unspecified site (ICD-10) ?L97.909 - Non-pressure chronic ulcer of unspecified part of unspecified lower leg with unspecified severity (ICD-10) Obesity ?E66.9 - Obesity, unspecified (ICD-10) Lung nodule ?R91.1 - Solitary pulmonary nodule (ICD-10) Chest pain ?R07.9 - Chest pain, unspecified (ICD-10) Cellulitis ?L03.90 - Cellulitis, unspecified (ICD-10) CVA (cerebral vascular accident) ?I63.9 - Cerebral infarction, unspecified (ICD-10) Obstructive sleep apnea ?G47.33 - Obstructive sleep apnea (adult) (pediatric) (ICD-10) Chronic respiratory failure ?J96.10 - Chronic respiratory failure, unspecified whether with hypoxia or hypercapnia (ICD-10) Pneumonia ?J18.9 - Pneumonia, unspecified organism (ICD-10) COPD (chronic obstructive pulmonary disease) ?J44.9 - Chronic obstructive pulmonary disease, unspecified (ICD-10) Surgical History Status post left knee replacement ?Z96.652 - Presence of left artificial knee joint (ICD-10) Status post right knee replacement ?Z96.651 - Presence of right artificial knee joint (ICD-10) History of colonoscopy ?Z98.890 - Other specified postprocedural states (ICD-10) Family History Sister Breast cancer Brain cancer Father Skin cancer Brother Heart disease Mother Heart disease Other Diabetes Social History Narrative: . Lives with . Continues to smoke a minimum 1 pack per day of cigarettes. At least a 60 pack-year history of smoking. Drinks a minimal of 2-3 servings of vodka daily. Denies alcohol withdrawal symptoms. Denies any other street or recreational drugs. Does not want to be kept alive as a vegetable. On 11/08/2022 he tells me he wants a DNR DNI resuscitation status, which is and son support. Primary care physician is Dr. Marcio Gonzalez. What is your current living situation?: I presently have a place to live Problems where you live: no known problems Problems where you live details: NA In the past 12 months, utilities in danger of being shut off: no In past 12 months, lack of transportation kept you from medical appts, meetings, work, or getting things needed for daily living: no In the past 12 mos, have been you worried that your food would run out before you had money to buy more?: never true In the past 12 mos, the food you bought just didn't last and you didn't have money to buy more?: never true Highest level of school completed/degree received: 12th grade, no diploma Smoking Status: Current every day smoker What tobacco products do you use: cigarettes Smoking packs per day: 1 Smoking cigarettes per day: 20.0 Years smoked: 60 Smoking pack-years: 60.00 Do you use any of these nicotine containing products: None Second hand tobacco smoke exposure: No How often do you have a drink containing alcohol: 4 or more times a week Alcohol type: beer Alcohol type details: 2-3 drinks/day How many standard drinks containing alcohol do you have on a typical day: 1 or 2 How often do you have six or more drinks on one occasion: Never AUDIT-C Alcohol total score: 4 Non-prescribed substance use: denies use Non-prescribed substance use details: pot occassionally Caffeine: Yes How often does anyone, including family, friends and others, physically hurt you: never How often does anyone, including family, friends and others, insult or talk down to you: never How often does anyone, including family, friends and others, threaten you with harm: never How often does anyone, including family, friends and others, scream or curse at you: never Gender Identity: male service: Yes Meds Home Medications and Allergies Home Medications Medication Instructions Recorded Confirmed Type acetaminophen 500 mg capsule 500 - 1,000 mg PO Q6H PRN 10/12/21 07/31/23 History atorvastatin 40 mg tablet 40 mg PO HS 10/12/21 07/31/23 History fluticasone fur. 100 mcg-umeclid 1 inh inhalation DAILY 10/12/21 07/31/23 History 62.5 mcg-vilant 25 mcg inhalat.powder (Trelegy Ellipta) furosemide 20 mg tablet 20 mg PO BID@09,16 10/12/21 07/31/23 History tramadol 50 mg tablet 50 mg PO Q12H PRN pain 10/12/21 07/31/23 History aspirin 81 mg tablet,delayed 81 mg PO HS 07/31/23 07/31/23 History release (Adult Low Dose Aspirin) brimonidine 0.2 % eye drops 1 drp ophthalmic (eye-left) BID 07/31/23 07/31/23 History latanoprost 0.005 % eye drops 1 drp ophthalmic (eye) QPM 07/31/23 07/31/23 History mirtazapine 7.5 mg tablet 7.5 mg PO QPM 07/31/23 07/31/23 History potassium chloride 20 mEq 20 meq PO BID 07/31/23 07/31/23 History tablet,extended release(part/cryst) (Klor-Con M) Allergies Allergy/AdvReac Type Severity Reaction Status Date / Time codeine Allergy Mild Verified 10/12/21 11:39 oxycodone Allergy Hallucinati Verified 01/29/23 12:33 ng Penicillins Allergy Rash Verified 10/12/21 11:39 dust Allergy Mild Uncoded 10/12/21 11:39 Exam Narrative: Exam Narrative: General: NAD, alert Pulmonary: Symmetrical rise, on nasal cannula BLE: Cutaneous manifestations consistent with chronic venous insufficiency. 2+ edema bilaterally. RLE venous ulcer: 0.6X0.8X0.2cm, 75% granulation, 25% biofilm & sough, small serosang drainage, lucila-wound WNL Psych: normal affect Const: Vital Signs, click to edit/add: Vital Signs - 24 hr 08/01/23 16:13 08/01/23 16:13 08/01/23 19:00 Temperature 98.3 F 98.2 F Pulse Rate [Right Pulse Oximeter] 75 79 Respiratory Rate 20 24 Blood Pressure [Ri ght Arm] 135/57 L 131/54 L Pulse Oximetry 91 91 91 Oxygen Delivery Me thod CPAP CPAP CPAP Oxygen Flow Rate 5 08/01/23 23:00 08/01/23 23:00 08/01/23 23:00 Temperature 98.1 F Pulse Rate [Right Pulse Oximeter] 75 75 Respiratory Rate 18 18 18 Blood Pressure [Ri ght Arm] 126/63 Pulse Oximetry 89 89 Oxygen Delivery Me thod CPAP CPAP Oxygen Flow Rate 5 5 08/02/23 02:00 08/02/23 02:50 08/02/23 07:57 Temperature 98.3 F Pulse Rate [Right Pulse Oximeter] 72 73 Respiratory Rate 22 16 Blood Pressure [Ri ght Arm] 115/57 L Pulse Oximetry 89 89 Oxygen Delivery Me thod Oxygen Flow Rate 5 08/02/23 07:57 08/02/23 07:57 08/02/23 11:03 Temperature 99 F 98.5 F Pulse Rate [Right Pulse Oximeter] 73 69 Respiratory Rate 16 16 24 Blood Pressure [Ri ght Arm] 123/60 127/57 L Pulse Oximetry 87 L 87 L 88 Oxygen Delivery Me thod Oxygen Flow Rate 5 5 5 Documenting provider has reviewed patient's vital signs: yes Labs Labs: Short CBC 08/02/23 Range/Units 06:06 Hgb 9.3 L (13.5-17.5) gm/dL Assessment and Plan Assessment and plan (1) Non-pressure chronic ulcer of right calf with fat layer exposed: Status: Acute (2) Venous stasis dermatitis of both lower extremities: Problem comment: - Chronic. - continue with wound care orders Status: Acute (3) Venous insufficiency (chronic) (peripheral): Status: Acute Plan stable chronic wound. cleansed and dressed by this financial writer with Iodosorb and border foam. at bed, updated on wound care orders at home to resume as previously ordered by the wound center. Next wound center appt. 08/16/23 @1000am Total Time Spent Total Time Spent: 35
[2023-08-02] MEDS: ACETIC ACID 1,000 ML IRR 0.25% 1 APPLIC IRRIGATION (13:45)
--- NOTE | 2023-08-02 14:10 | P.DS_ITS ---
DS: Providers Provider Date Seen: 08/02/23 Date of admission: 07/31/23 02:47 Primary care physician: Marcio Gonzalez MD Admitting Clinician: Yesy Carlos MD Consults: 07/31/23 02:57 Consult to Physical Therapy [CONS] Routine Comment: Reason(s) for PT Consult:: Evaluate and Treat Any Restrictions?:: No Restrictions 07/31/23 03:00 Consult to Occupational Therapy [CONS] Routine Comment: Reason(s) for OT Consult:: Evaluate and Treat Any Restrictions?:: No Restrictions Attending Physician on discharge: Jose Turcios MD Date of Discharge: 08/02/23 DS: Diagnosis Discharge Diagnosis (1) Pneumonia: Status: Acute Problem details: - continue with ceftriaxone IV and doxycycline orally (2) Acute hypoxemic respiratory failure: Status: Acute Problem details: - I suspect he has acute on chronic hypoxic respiratory failure and with the pneumonia it is quite exacerbated - working with respiratory therapy to consider various options for home oxygen prescription when the time does come for him to be able to safely leave the hospital. (3) Acute on chronic respiratory failure with hypoxia and hypercapnia: Status: Acute (4) COPD (chronic obstructive pulmonary disease): Status: Acute Problem details: Advanced. Refuses quit smoking. Consider COPD exacerbation treatment if condition is not improving. (5) Tobacco abuse disorder: Status: Acute Problem details: Currently smokes a minimum of 1 pack per day. Pre contemplative about quitting. Greater than 60 pack-year history. (6) Acute on chronic respiratory failure with hypoxemia: Status: Acute Problem details: - Hypoxia on admission. Likely multifactorial from underlying COPD, pneumonia, and heart failure (7) Chronic heart failure with preserved ejection fraction (HFpEF): Status: Acute Problem details: - Transthoracic echocardiogram 10/12/2021: Normal LV size, moderate LVH, normal systolic function, EF 63%. Mild bi-atrial enlargement. Sclerotic aortic valve without stenosis or regurgitation. Borderline dilated ascending aorta with maximal diameter of 3.8 cm. Borderline dilated aortic sinus with maximal diameter of 4 cm. - continue with usual dose of diuretic, furosemide 20 mg twice daily, for now. Consider increasing dose. (8) Venous stasis dermatitis of both lower extremities: Status: Acute Problem details: - Chronic. - continue with wound care orders (9) Hypothalamic disinhibition syndrome: Status: Acute Problem details: - notes that after his stroke he lost all filters and speaks his mind, sometimes in a not so kind way. (10) Weakness: Status: Acute Problem details: - treat the pneumonia. - work with physical and occupational therapy (11) Alcohol use disorder: Status: Acute Problem details: Drinks alcoholic beverages daily, minimal of 2 servings of vodka daily, not infrequently 3-4 servings per day. He was advised to stop drinking due to the toxic effects of alcohol on his heart and heart rhythm and he reports he intends to be abstinent from alcohol. (12) Obstructive sleep apnea: Status: Acute Problem details: - Uses home BiPap 20/01. Works with sleep specialist. Has order for 24 hour oxygen supplementation 4 LPM, including bleed-in to BiPap when utilizing BiPap. (13) Non-pressure chronic ulcer of right calf with fat layer exposed: Status: Acute (14) Venous insufficiency (chronic) (peripheral): Status: Acute DS: Summary Hospital Course Hospital Course: History of present illness: ?...77 year old male who presented to the emergency room with increased weakness and shortness of breath. Gen has a significant past medical history of atrial fibrillation currently anticoagulated on Eliquis, depression, chronic low back pain, tobacco abuse, obesity, peripheral vascular disease with chronic lower extremity stasis ulcerations, COPD and obstructive sleep apnea on home CPAP. Gen states that he spent most of the day in [place] as he was there to have his vision checked. Apparently he had some cataract surgery and continues to have some difficulty with his vision. He is somewhat poor most of the history is achieved through the emergency room provider. Apparently, over the last few days Gen has been having some increased weakness. I believe his called the ambulance today as he was unable to get up and do his ADLs. Gen seems to be a somewhat poor historian, but denies any recent cough or cold type symptoms. He denies any fever or chills. Upon presentation the emergency room, he was noted to be quite hypoxic with low oxygen saturations in the 70s. He was also noted to have a leukocytosis and possible infiltrate noted on chest x- ray. He does admit to continuing to smoke at least 24 cigarettes/day. He does go to wound clinic regularly to tend to his bilateral lower extremity stasis ulcer wounds. With his increased demand for oxygen supplementation with his acute hypoxic respiratory failure, he is currently being admitted to the medical service for further evaluation and treatment. Patient continues to require continue oxygen supplementation, either bleed-in to BiPAP or via nasal cannula to maintain oxygen saturations greater than or equal to 85% at rest. Initially he made it very clear he is not willing to use oxygen at home. During the course of a family conference today articulated that he will adhere to the recommendation to utilizes oxygen as prescribed 24 hours daily, 4 liters/minute either via nasal cannula or bleed in to BiPAP. His cough is seemingly back to baseline according to him. Nonproductive. Dry and hacky. Has dyspnea with exertion which is not new. He indicates he is ready to be discharged home. Held a family care conference today prior to discharge with patient, , son, Zoltan, granddaughter, Alysa, and daughter, Janae, who was present via phone. Care conference lasted 15 minutes. Patient agreeable to 24 hour per day use of oxygen safely including no more smoking and no smoking in the home or in the car when he is present with use of his oxygen. Family agreeable to support him in this. Time Spent with Patient Time attestation: Total time spent providing and/or coordinating discharge services: Exam Narrative: Exam Narrative: Examined in his room. Appears to be in no acute distress. Vision and hearing are adequate. Alert and oriented to self, place, time, and in part to situation. Neck is full. Midline trachea. No head neck lymphadenopathy. Lungs with less rhonchi and wheezing. Aohy-tm-tpcgidtw rales right base. No CVA tenderness. Chest wall excursions are full. Heart tones with chaotic rhythm, normal S1-S2. No obvious murmur, gallop, rub. Extremities with trace edema bilaterally. Moves all 4 extremities. No focal motor neurologic deficit. Continues to exhibit disinhibition, which he has had since a prior stroke Const: Vital Signs, click to edit/add: Vital Signs - 24 hr 08/01/23 16:13 08/01/23 16:13 08/01/23 19:00 Temperature 98.3 F 98.2 F Pulse Rate [Right Pulse Oximeter] 75 79 Respiratory Rate 20 24 Blood Pressure [Ri ght Arm] 135/57 L 131/54 L Pulse Oximetry 91 91 91 Oxygen Delivery Me thod CPAP CPAP CPAP Oxygen Flow Rate 5 08/01/23 23:00 08/01/23 23:00 08/01/23 23:00 Temperature 98.1 F Pulse Rate [Right Pulse Oximeter] 75 75 Respiratory Rate 18 18 18 Blood Pressure [Ri ght Arm] 126/63 Pulse Oximetry 89 89 Oxygen Delivery Me thod CPAP CPAP Oxygen Flow Rate 5 5 08/02/23 02:00 08/02/23 02:50 08/02/23 07:57 Temperature 98.3 F Pulse Rate [Right Pulse Oximeter] 72 73 Respiratory Rate 22 16 Blood Pressure [Ri ght Arm] 115/57 L Pulse Oximetry 89 89 Oxygen Delivery Me thod Oxygen Flow Rate 5 08/02/23 07:57 08/02/23 07:57 08/02/23 11:03 Temperature 99 F 98.5 F Pulse Rate [Right Pulse Oximeter] 73 69 Respiratory Rate 16 16 24 Blood Pressure [Ri ght Arm] 123/60 127/57 L Pulse Oximetry 87 L 87 L 88 Oxygen Delivery Me thod Oxygen Flow Rate 5 5 5 DS: Data Data Completed and Pending Completed studies during hospitalization: Procedures Introduction of Other Therapeutic Substance into Respiratory Tract, Via Natural or Artificial Opening (11/08/22) Labs on day of discharge: Labs from last 24 hours 08/02/23 06:06 Hgb 9.3 L VBG pH 7.364 VBG pCO2 61 H* VBG pO2 41.6 VBG HCO3 35 H Discharge Plan Discharge Disposition: Home, Self-Care Date of Admission: 07/31/23 02:47 Attending Provider on Discharge: Jose Turcios Primary Care Provider: Marcio Gonzalez Condition: Improved Anticipated Discharge Date/Time: 08/02/23 13:00 Discharge Medications: New albuterol sulfate [Ventolin HFA] 90 mcg/actuation Hfa Aerosol Inhaler 2 puff inhalation QID PRN (Reason: shortness of breath or wheezing) 30 Days Qty: 1 1RF doxycycline hyclate 100 mg Tablet 100 mg PO BID 2 Days Qty: 4 0RF cefpodoxime 200 mg tablet 200 mg PO BID Qty: 10 0RF Rx Instructions: must administer with a meal/food Continued potassium chloride [Klor-Con M20] 20 mEq tablet,ER particles/crystals 20 meq PO BID brimonidine 0.2 % drops 1 drp ophthalmic (eye-left) BID mirtazapine 7.5 mg tablet 7.5 mg PO QPM latanoprost 0.005 % drops 1 drp ophthalmic (eye) QPM aspirin [Adult Low Dose Aspirin] 81 mg tablet,delayed release (DR/EC) 81 mg PO HS atorvastatin 40 mg tablet 40 mg PO HS Patient Comments: TAKE 1 TABLET BY MOUTH EVERY DAY AT BEDTIME furosemide 20 mg tablet 20 mg PO BID@09,16 Patient Comments: TAKE 1 TABLET BY MOUTH TWICE A DAY tramadol 50 mg tablet 50 mg PO Q12H PRN (Reason: pain) Patient Comments: takes prior to dressing change Trelegy Ellipta 100-62.5-25 mcg blister with device 1 inh INHALATION DAILY acetaminophen 500 mg capsule 500 - 1,000 mg PO Q6H PRN Eliquis 5 mg Tablet 5 mg PO BID Qty: 60 0RF diltiazem HCl [DILT-XR] 180 mg capsule,ext.rel 24h degradable 180 mg PO DAILY Qty: 30 0RF magnesium oxide 400 mg magnesium capsule 400 mg PO DAILY Qty: 30 0RF Discharge Orders: Discharge Order (Routine); Ordered 08/02/23 Ordered By: Jose Turcios Patient Education: Doxycycline (By mouth), Albuterol (By mouth), Cefpodoxime Proxetil (By mouth), Sleep Apnea (GEN), How to Stop Smoking (DC), Using Oxygen at Home (DC), Hypoxia (ED), Alcohol Use Disorder (DC), Chronic Respiratory Failure (GEN), Acute Respiratory Failure (GEN) Additional Instructions: 1. Oxygen 4 liters per minute continuously, either via nasal canula or bleed-in to BiPap machine, inside your house, outside your house, while traveling, and so forth; 2. 100% smoking cessation. Also no one else is to smoke in your house or car while you are in the house and car; 3. Minimize alcohol consumption, maximum of 1 drink per day; 4. Continue to work with your sleep doctor; 5. Continue to work with your lung doctor; 6. Continue to work with you primary care doctor; 7. Continue to work with your ingredient specialist. Activity Level: Activity as Tolerated Discharge Diet: 2 gm Sodium Follow Up Appointments: Marcio Gonzalez MD [Primary Care Provider] - Fabienne Dumont DO [Staff Physician] - 08/08/23 2:00 pm ([facility] for follow up. Dr. Gonzalez was not available ) Forms: [employer] Info Instructions
[2023-08-02 14:39] VITALS: BP 131/60; PULSE 73; RESP 26; TEMP 37.5; O2SAT 88
[2023-08-02 14:51] VITALS: O2SAT 75; O2SAT 80; O2SAT 90
--- NOTE | 2023-08-02 17:01 | PC.NURSE ---
Discharge Note: Patient calm, cooperative, and pleasant. Patient vitally stable, lung sounds clear but diminished, BS active. Patient tolerated regular diet, urinating, but no BM this shift, patient up in chair all shift. Patient standby assist/walker. Patient reported no pain. IV removed, catheter intact. Patient was on 5L oxymizer, but was later changed to 4L NC. BOTTLE BLOWER performed wound care, right lateral leg mepilex c/d/i. Patient was given discharge teaching, patient had no further questions to ask. Patient left the floor by wheelchair with spouse at [phone].
== END 2023-08-02 16:39 | disposition home or self-care (01) | DRG 193 ==
LOC: ED 07-31 01:11 → MEDSURG 07-31 01:32
PROVIDERS: Internal Medicine; Admitting Provider Internal Medicine; Emergency Provider Family Medicine; PCP Family Medicine; Visit Provider Emergency Medicine
DX: J18.9 Pneumonia, unspecified organism (principal); J96.21 Acute and chronic respiratory failure with hypoxia; J96.22 Acute and chronic respiratory failure with hypercapnia; J44.0 Chronic obstructive pulmonary disease with (acute) lower respiratory infection; I50.32 Chronic diastolic (congestive) heart failure; L97.212 Non-pressure chronic ulcer of right calf with fat layer exposed; F33.9 Major depressive disorder, recurrent, unspecified; I48.92 Unspecified atrial flutter; I48.20 Chronic atrial fibrillation, unspecified; J44.1 Chronic obstructive pulmonary disease with (acute) exacerbation; I11.0 Hypertensive heart disease with heart failure; I87.2 Venous insufficiency (chronic) (peripheral); Z79.01 Long term (current) use of anticoagulants; E66.9 Obesity, unspecified; G47.33 Obstructive sleep apnea (adult) (pediatric); F17.210 Nicotine dependence, cigarettes, uncomplicated; F10.10 Alcohol abuse, uncomplicated; E23.3 Hypothalamic dysfunction, not elsewhere classified
CPT/HCPCS: 36415; 71045; 80048; 80053; 80069; 81001; 82803; 83605; 83880; 84484; 85018; 85025; 85027; 86140; 87086; 87186; 87631; 94640; 94761; 97110; 97116; 97162; 97165; 97535; 99285; A9270; J0696

== ENCOUNTER 2023-08-16 09:57 | Outpatient (CLI) | payer MEDICARE, BC, SELFPAY ==
--- OUTSIDE RECORDS SUMMARY | 2023-08-16 09:59 | XMS_ITS | Clinical Summary ---
Author Name Unknown Organization [facility] Address [address] [place] [address] Care Team Providers Care Rug Cleaner Hand Name Role Phone Unavailable Primary Care Provider Unavailabl e Source Comments Patient records contain information from all sites at [facility]. For routine questions regarding patient records, call [phone] during business hours, M-F 8:00 AM - 5:00 PM Central Time. Record requests for emergency care only can be directed to [phone] at any time.[facility] Allergies Active Allergy Reactions Criticality Noted Date [...] Encounters Date Type Department Care Team Description 08/01/2023 Clinical Communication Division of oven worker in [place], [place] [address] [place] [phone] Prescheduling, Provider 07/31/2023 Clinical Communication Department of Ophthalmology in [place], [place] [address] [place] [phone] Rachel Collins M.D., Ph.D. 07/30/2023 3:20 PM CDT Ancillary Procedure Department of Ophthalmology 07/30/2023 3:15 PM CDT Comprehensive Visit Department of Ophthalmology in [place], [place] [address] [place] [phone] Red Gallego M.D. Ischemia Retina (Primary Dx); Arteritis Temporal (HCC); Glaucoma Neovascular; Intraocular Lens Implant Status Post; Occlusion Carotid Artery Left 07/30/2023 2:10 PM CDT Ancillary Procedure Department of Ophthalmology in [place], [place] [address] [place] [phone] Red Gallego M.D. 07/30/2023 1:25 PM CDT Ancillary Procedure Department of Ophthalmology 07/30/2023 12:00 PM CDT Ancillary Procedure Department of Ophthalmology in [place], [place] [address] [place] [phone] Red Gallego M.D. Neuropathy Optic 07/30/2023 11:15 AM CDT Ancillary Procedure Department of Ophthalmology in [place], [place] [address] [place] [phone] Red Gallego M.D. Neuropathy Optic 07/30/2023 10:45 AM CDT Ancillary Procedure Department of Ophthalmology 07/30/2023 9:40 AM CDT Ancillary Procedure Department of Ophthalmology 07/30/2023 9:30 AM CDT Ancillary Procedure Department of Ophthalmology in [place], [place] [address] [place] [phone] Red Gallego M.D. Neuropathy Optic 07/30/2023 7:50 AM CDT - 07/30/2023 11:59 PM CDT Hospital Encounter Department of Laboratory Medicine and Pathology, [facility] in [place], [place] [address] [place] [phone] Red Gallego M.D. Loss Visual; Defect Visual Field Discharge Disposition: Home or Self Care 07/30/2023 Clinical Communication Department of Ophthalmology in [address] [phone] Provider, Unknown Appt Request 07/30/2023 Ancillary Procedure Department of Ophthalmology 07/30/2023 Episode Changes Department of Ophthalmology in [place], [place] [address] [place] [phone] Giana Mancilla 07/29/2023 1:27 PM CDT - 07/29/2023 11:59 PM CDT Hospital Encounter Department of Radiology, [facility], in [place], [place] [address] [place] [phone] Red Gallego M.D. Loss Visual Discharge Disposition: Home or Self Care 07/25/2023 Orders Only Department of Ophthalmology in [place], [place] [address] [place] [phone] Red Gallego M.D. Loss Visual (Primary Dx); Defect Visual Field 07/25/2023 Clinical Communication Department of Ophthalmology in [place], [place] [address] [place] [phone] Red Gallego M.D. Appt Request 07/24/2023 2:40 PM CDT - 07/24/2023 11:59 PM CDT Hospital Encounter Department of Radiology, [facility] in [place], [place] [address] [place] [address] Red Gallego M.D. Neuropathy Optic Discharge Disposition: Home or Self Care 07/03/2023 Orders Only Department of Ophthalmology in [place], [place] [address] [place] [address] Red Gallego M.D. 05/18/2023 Clinical Communication Department of Ophthalmology in [place], [place] [address] [place] [phone] Red Gallego M.D. Pre-visit Testing Orders from Last 3 Months Social History Tobacco Use Types Packs/Day Years Used Date Smoking Tobacco: Unknown [facility] Utilities Answer Date Recorded In the past 12 months has [facility] electric, gas, oil, or water [employer] threatened to shut off services in your [...] your living situation today? I have a [facility] place to live 07/25/2023 Sex and [...] 10/23/2011 9:02 AM CDT Plan of Treatment Health Maintenance Due Date [...] history exists Medical Devices Implanted Type Area Mushroom Grower Device Identifier Shelf Expiration Date Model / Serial / Lot J J Sig Patella Oval 41 - [id number] [id number] Implanted:Qty: 1 on 10/23/2011 Knee Implant Other/Legacy - See Implant Description [employer] Description:Device Manufactu rer - [employer]. Body Location - Other. Left. Device Status Text - [id number] [id number]. Depuy-Insert Stabilized Sz 5 12.5mm - Briones [id number] Implanted:Qty: 1 on 10/23/2011 Knee Implant Other/Legacy - See Implant Description [employer] Description:Device Manufactu rer - [employer]. Body Location - Other. Left. Device Status Text - [id number] [id number]. Depuy-Tib Tray Mod Cement Cocr Sz5 - Briones [id number] Implanted:Qty: 1 on 10/23/2011 Knee Implant Other/Legacy - See Implant Description [employer] Description:Device Manufactu rer - [employer]. Body Location - Other. Left. Device Status Text - KNEE [id number]. Sigma Post Stab.W Lug Fem Sz 6 Lt - [id number] [id number] Implanted:Qty: 1 on 10/23/2011 Knee Implant Other/Legacy - See Implant Description [employer] Description:Device Manufactu rer - [employer]. Body Location - Other. Left. Device Status Text - KNEE [id number]. Cement Bone Large - Briones [id number] Implanted:Qty: 2 on 10/23/2011 Misc Other [place] Description:Device Manufactu rer - [place] [employer].. Device Status Text - [id number]. Procedures [...] METABOLIC PANEL, S/P Routine 03/27/2023 3:07 PM [address] CT ABDOMEN PELVIS WITH IV CONTRAST RAD [...] RAD IMAGI NG PROCEDURES Performing Organization Address [facility]/ZIP Co de Phone Number IIMS NA * Optical Coherence Tomography - [...] Gallego M.D. OPHTH TOMOGRAPHY Performing Organization Address City/[facility]/ZIP Co de Phone Number OPHTHALMOLOGY IMAGING EXAM [...] Gallego M.D. OPHTH PHOTOGRAPHY Performing Organization Address [facility] de Phone Number OPHTHALMOLOGY IMAGING EXAM * [...] OPHTH VISUAL FIEL D Performing Organization Address [facility] de Phone Number OPHTHALMOLOGY IMAGING EXAM * (ABNORMAL) Sedimentation Rate (07/30/2023 8:13 AM CDT) Sedimentation Rate, B 42(H) 3 - 28 mm/h 07/30/2023 10:11 AM CDT DTL Blood (Blood, Venous) 07/30/2023 8:13 AM CDT 07/30/2023 8:41 AM CDT Red Gallego M.D. LAB BLOOD ADD-ON Performing Organization Address [facility] de Phone Number [facility] [address] [place] [address], [facility] DTL [facility] [address] [address] * (ABNORMAL) CBC with Differential, Blood (07/30/2023 [...] CDT Red Gallego M.D. LAB BLOOD ADD-ON [facility] [address] [place] [address], [facility] [address] [place] [address] [facility] [address] [place] [address] * (ABNORMAL) CRP (C-Reactive Protein) (07/30/2023 8:13 AM CDT) C-Reactive Protein (CRP), S 33.6(H) <5.0 mg/L 07/30/2023 9:14 AM CDT DTL Blood (Blood, Venous) 07/30/2023 8:13 AM CDT 07/30/2023 8:52 AM CDT Red Gallego M.D. LAB BLOOD ADD-ON Performing Organization Address [facility] Co de Phone Number [facility] [address] [place] [address], [facility] [address] [place] [address] * Creatinine with Estimated GFR (07/30/2023 8:13 AM CDT) Creatinine 1.15 0.74 - 1.35 mg/dL 07/30/2023 9:14 AM CDT DTL Estimated GFR (eGFR) 66 >=60 mL/min/BSA 07/30/2023 9:14 AM CDT DTL Comment: Estimated GFR calculated using the 2020 CKD_EPI creatinine equation. Blood (Blood, Venous) 07/30/2023 8:13 AM CDT 07/30/2023 8:52 AM CDT Red Gallego M.D. LAB BLOOD ADD-ON Performing Organization Address City/[facility]/ZIP Co de Phone Number [facility] [address] [place] [address], [facility] [address] [place] [address] * CT Head Neck Angiogram with IV [...] sinusitis, active on chronic. Red Gallego M.D. [facility] CT PROCEDURES * MR Examination Not Performed [...]
--- OUTSIDE RECORDS SUMMARY | 2023-08-16 09:59 | XMS_ITS | Encounter Summary ---
Author Name Unknown Organization [facility] Address [address] [place] [address] Care Team Providers Care Photographic Machine Operator Name Role Phone Unavailable Primary Care Provider Unavailabl e Encounter Details Date Type Department Care Team (Late st Contact Info) Description 07/30/2023 Ancillary Procedure Department of Ophthalmology Social History Tobacco Use Types Packs/Day Years Used Date Smoking Tobacco: Unknown [facility] Utilities Answer Date Recorded In the past 12 months has th e electric, gas, oil, or water [employer] threatened to shut off services in your [...] living situation today? I have a [facility] place to live 07/25/2023 Sex and Gender Information Value Date Recorded Sex Assigned at Male 07/25/2023 8:23 PM CDT Gender Identity Male 07/25/2023 8:23 PM CDT Sexual Orientation Straight 07/25/2023 8: 23 PM CDT documented as of this encounter Plan of Treatment Not on file documented as of this encounter Procedures Procedure [...]
--- OUTSIDE RECORDS SUMMARY | 2023-08-16 09:59 | XMS_ITS | Referral Summary ---
Author Name Unknown Organization [facility] Address [address] [place] [address] Care Team Providers Care Layboy Operator Name Role Phone Unavailable Primary Care Provider Unavailabl e Source Comments Patient records contain information from all sites at [facility]. For routine questions regarding patient records, call [phone] during business hours, M-F 8:00 AM - 5:00 PM Central Time. Record requests for emergency care only can be directed to [phone] at any time.[facility] Encounters Date Type Department Care Team Description 08/01/2023 Clinical Communication Division of schedule planning manager in [place], [place] [address] [place] [address] Prescheduling, Provider 07/31/2023 Clinical Communication Department of Ophthalmology in [place], [place] [address] [place] [phone] Rachel Collins M.D., Ph.D. 07/30/2023 3:20 PM CDT Ancillary Procedure Department of Ophthalmology 07/30/2023 Clinical Communication Department of Ophthalmology in [place], [place] [address] [place] [address] Provider, Unknown Appt Request 07/30/2023 1:25 PM CDT Ancillary Procedure Department of Ophthalmology 07/30/2023 Ancillary Procedure Department of Ophthalmology 07/30/2023 Episode Changes Department of Ophthalmology in [place], [place] [address] [place] [address] Giana Mancilla 07/30/2023 10:45 AM CDT Ancillary Procedure Department of Ophthalmology 07/30/2023 9:40 AM CDT Ancillary Procedure Department of Ophthalmology 07/30/2023 7:50 AM CDT - 07/30/2023 11:59 PM CDT Hospital Encounter Department of Laboratory Medicine and Pathology, [facility], in [place], [place] [address] [place] [phone] Red Gallego M.D. Loss Visual; Defect Visual Field Discharge Disposition: Home or Self Care 07/30/2023 2:10 PM CDT Ancillary Procedure Department of Ophthalmology in [place], [place] [address] [place] [phone] Red Gallego M.D. 07/30/2023 12:00 PM CDT Ancillary Procedure Department of Ophthalmology in [place], [place] [address] [place] [phone] Red Gallego M.D. Neuropathy Optic 07/30/2023 9:30 AM CDT Ancillary Procedure Department of Ophthalmology in [place], [place] [address] [place] [phone] Red Gallego M.D. Neuropathy Optic 07/30/2023 11:15 AM CDT Ancillary Procedure Department of Ophthalmology in [place], [place] [address] [place] [address] Red Gallego M.D. Neuropathy Optic 07/30/2023 3:15 PM CDT Comprehensive Visit Department of Ophthalmology in [place], [place] [address] [place] [phone] Red Gallego M.D. Ischemia Retina (Primary Dx); Arteritis Temporal (HCC); Glaucoma Neovascular; Intraocular Lens Implant Status Post; Occlusion Carotid Artery Left 07/29/2023 1:27 PM CDT - 07/29/2023 11:59 PM CDT Hospital Encounter Department of Radiology, [facility], in [place], [place] [address] [place] [phone] Red Gallego M.D. Loss Visual Discharge Disposition: Home or Self Care 07/25/2023 Orders Only Department of Ophthalmology in [place], [place] [address] [place] [address] Red Gallego M.D. Loss Visual (Primary Dx); Defect Visual Field 07/25/2023 Clinical Communication Department of Ophthalmology in [place], [place] [address] [place] [address] Red Gallego M.D. Appt Request 07/24/2023 2:40 PM CDT - 07/24/2023 11:59 PM CDT Hospital Encounter Department of Radiology, [facility] in [place], [place] [address] [place] [address] Red Gallego M.D. Neuropathy Optic Discharge Disposition: Home or Self Care 07/03/2023 Orders Only Department of Ophthalmology in [place], [place] [address] [place] [address] Red Gallego M.D. 05/18/2023 Clinical Communication Department of Ophthalmology in [place], [place] [address] [place] [address] Red Gallego M.D. Pre-visit Testing Orders from [...] Packs/Day Years Used Date Smoking Tobacco: Unknown [facility] Utilities Answer Date Recorded In the past 12 months has e [employer], gas, oil, or water [employer] threatened to shut off services in your [...] your living situation today? I have a [facility] place to live 07/25/2023 Sex and [...] 10/23/2011 9:02 AM CDT Plan of Treatment Not on file Medical Devices Implanted Type Area Ssis Architect Device Identifier Shelf Expiration Date Model / Serial / Lot J J Sig Patella Oval 41 - [id number] [id number] Implanted:Qty: 1 on 10/23/2011 Knee Implant Other/Legacy - See Implant Description [employer] Description:Device Manufactu rer - [employer]. Body Location - Other. Left. Device Status Text - [id number] [id number]. Depuy-Insert Stabilized Sz 5 12.5mm - Briones [id number] Implanted:Qty: 1 on 10/23/2011 Knee Implant Other/Legacy - See Implant Description [employer] Description:Device Manufactu rer - [employer]. Body Location - Other. Left. Device Status Text - [id number] [id number]. Depuy-Tib Tray Mod Cement Cocr Sz5 - Briones [id number] Implanted:Qty: 1 on 10/23/2011 Knee Implant Other/Legacy - See Implant Description [employer] Description:Device Manufactu rer - [employer]. Body Location - Other. Left. Device Status Text - [id number] [id number]. Sigma Post Stab.W Lug Fem Sz 6 Lt - Briones [id number] Implanted:Qty: 1 on 10/23/2011 Knee Implant Other/Legacy - See Implant Description [employer] Description:Device Manufactu rer - [employer]. Body Location - Other. Left. Device Status Text - [id number] [id number]. Cement Bone Large - Briones [id number] Implanted:Qty: 2 on 10/23/2011 Misc Other [place] Description:Device Manufactu rer - [employer].. Device Status Text - [id number]. Procedures [...] METABOLIC PANEL, S/P Routine 03/27/2023 3:07 PM RAIL MAINTENANCE WORKER CT ABDOMEN PELVIS WITH IV CONTRAST RAD [...] OCT device used was Cirrus . Notes [facility] - Patient would not allow us to complete exam. Managed to get most scans done on the right eye. No left eye scans. The interpretation report for this test can be found in the Testing section of the chart note dated 07/30/2023 Red Gallego M.D. OPHTH TOMOGRAPHY Performing Organization Address [facility] de Phone Number OPHTHALMOLOGY IMAGING EXAM [...] Gallego M.D. OPHTH PHOTOGRAPHY Performing Organization Address [facility] de Phone Number OPHTHALMOLOGY IMAGING EXAM [...] (ABNORMAL) Sedimentation Rate (07/30/2023 8:13 AM CDT) [facility] Sedimentation Rate, B 42(H) 3 - 28 mm/h 07/30/2023 10:11 AM CDT DTL Blood (Blood, Venous) 07/30/2023 8:13 AM CDT 07/30/2023 8:41 AM CDT Red Gallego M.D. LAB BLOOD ADD-ON Performing Organization Address City/[facility]/ZIP Co de Phone Number [facility] [address] [place] [address], [facility] 200 [place] [address] * (ABNORMAL) CBC with Differential, Blood (07/30/2023 8:13 AM CDT) [facility] Hemoglobin 10.9(L) 13.2 - 16.6 g/dL 07/30/2023 [...] M.D. LAB BLOOD ADD-ON Performing Organization Address City/[facility]/ZIP Co de Phone Number [facility] [address] 200 [place] [address] * (ABNORMAL) CRP (C-Reactive Protein) (07/30/2023 8:13 AM CDT) [facility] C-Reactive Protein (CRP), S 33.6(H) <5.0 mg/L 07/30/2023 9:14 AM CDT DTL Blood (Blood, Venous) 07/30/2023 8:13 AM CDT 07/30/2023 8:52 AM CDT Red Gallego M.D. LAB BLOOD ADD-ON [facility] 200 [place] [address] * Creatinine with Estimated GFR (07/30/2023 8:13 AM CDT) [facility] Creatinine 1.15 0.74 - 1.35 mg/dL 07/30/2023 9:14 AM CDT DTL Estimated GFR (eGFR) 66 >=60 mL/min/BSA 07/30/2023 9:14 AM CDT DTL Comment: Estimated GFR calculated using the 2020 CKD_EPI creatinine equation. Blood (Blood, Venous) 07/30/2023 8:13 AM CDT 07/30/2023 8:52 AM CDT Red Gallego M.D. LAB BLOOD ADD-ON [facility] [address] [place] [address], [place] DTL [facility] [address] [place] [address] * CT Head Neck Angiogram with IV Contrast (07/29/2023 2:33 PM CDT) Anatomical Region Laterality Modality Head and Neck, Neuroradiolog y RST LOS, Neuroradiology ARKassandra LOS, Neuroradiology FL LOS N/A Computed Tomography, [...]
--- OUTSIDE RECORDS SUMMARY | 2023-08-16 09:59 | XMS_ITS | Encounter Summary ---
Author Name Unknown Organization [facility] Address [address] [place] [address] Care Team Providers Care Shredding Floor Equipment Operator Name Role Phone Unavailable Primary Care Provider Unavailabl e Encounter Details Date Type Department Care Team (Late st Contact Info) Description 07/30/2023 Episode Changes Department of Ophthalmology in [place], [place] [address] [place] [address] Giana Mancilla Social History Tobacco Use Types Packs/Day Years Used Date Smoking Tobacco: Unknown [facility] Utilities Answer Date Recorded In the past [...] your living situation today? I have a [facility] place to live 07/25/2023 Sex and Gender Information Value Date Recorded Sex Assigned at Male 07/25/2023 8:23 PM CDT Gender Identity Male 07/25/2023 8:23 PM CDT Sexual Orientation Straight 07/25/2023 8: 23 PM CDT documented as of this encounter Plan of Treatment Not on file documented as of this encounter Visit Diagnoses Not on filedocumented in this encounter
--- OUTSIDE RECORDS SUMMARY | 2023-08-16 09:59 | XMS_ITS | Encounter Summary ---
Author Name Unknown Organization [facility] Address [address] [place] [address] Care Team Providers Care Technical Support Associate Name Role Phone Unavailable Primary Care Provider Unavailabl e Encounter Details Date Type Department Care Team (Late st Contact Info) Description 07/30/2023 1:25 PM CDT Ancillary Procedure Department of Ophthalmology Social History Tobacco Use Types Packs/Day Years Used Date Smoking Tobacco: Unknown [facility] Utilities Answer Date Recorded In the past 12 months has th e electric, gas, oil, or water [employer] threatened to shut off services in your [...] your living situation today? I have a [facility] place to live 07/25/2023 Sex and [...]
--- OUTSIDE RECORDS SUMMARY | 2023-08-16 09:59 | XMS_ITS | Encounter Summary ---
Author Name Unknown Organization [facility] Address [address] [place] [address] Care Team Providers Care Advertising Sales Representative Name Role Phone Unavailable Primary Care Provider Unavailabl e Encounter Details Date Type Department Care Team (Latest Contact Info) Description 07/31/2023 Clinical Communication Department of Ophthalmology in [place], [place] [address] [place] [address] Rachel Collins M.D., Ph.D. [address] [place] [phone] Social History Tobacco Use Types Packs/Day Years Used Date Smoking Tobacco: Unknown [facility] Utilities Answer Date Recorded In the past 12 months has th electric, gas, oil, or water company threatened [...] your living situation today? I have a [facility] place to live 07/25/2023 Sex [...]
--- OUTSIDE RECORDS SUMMARY | 2023-08-16 09:59 | XMS_ITS | Encounter Summary ---
Author Name Unknown Organization [facility] Address [address] [place] [address] Care Team Providers Care Lawn Mower Name Role Phone Unavailable Primary Care Provider Unavailabl e Reason for Visit * Reason Onset Date Comments Appt Request 07/30/2023 Encounter Details Date Type Department Care Team (Latest Contact Info) Description 07/30/2023 Clinical Communication Department of Ophthalmology in [place], [place] [address] [place] [address] Provider, Unknown Appt Request Social History Tobacco Use Types Packs/Day Years Used Date Smoking Tobacco: Unknown [facility] Utilities Answer Date Recorded In [...] your living situation today? I have a [facility] place to live 07/25/2023 Sex and [...]
--- OUTSIDE RECORDS SUMMARY | 2023-08-16 09:59 | XMS_ITS | Encounter Summary ---
Author Name Unknown Organization [facility] Address [address] [place] [address] Care Team Providers Care Contact Centre Supervisor Name Role Phone Unavailable Primary Care Provider Unavailabl e Encounter Details Date Type Department Care Team (Late st Contact Info) Description 08/01/2023 Clinical Communication Division of mercury cell cleaner in [place], [place] [address] [place] [address] Prescheduling, Provider Social History Tobacco Use Types Packs/Day Years Used Date Smoking Tobacco: Unknown [facility] Utilities Answer Date Recorded In the past [...] your living situation today? I have a [facility] place to live 07/25/2023 Sex and [...]
--- OUTSIDE RECORDS SUMMARY | 2023-08-16 09:59 | XMS_ITS | Encounter Summary ---
Author Name Unknown Organization [facility] Address [address] [place] [address] Care Team Providers Care Emergency Worker Name Role Phone Unavailable Primary Care Provider Unavailabl e Encounter Details Date Type Department Care Team (Late st Contact Info) Description 07/30/2023 3:20 PM CDT Ancillary Procedure Department of Ophthalmology Social History Tobacco Use Types Packs/Day Years Used Date Smoking Tobacco: Unknown [facility] Utilities Answer Date Recorded In the past 12 months has th e electric, gas, oil, or water [employer] threatened to shut off services in your [...] your living situation today? I have a [facility] place to live 07/25/2023 Sex and [...]
--- OUTSIDE RECORDS SUMMARY | 2023-08-16 09:59 | XMS_ITS ---
Author Name Unknown Organization [facility] Address [address] [place] [address] Care Team Providers Care Tying In Machine Operator Name Role Phone Unavailable Unavailable Unavailable Surgery Details Not on file Complications Check Surgery Details section. Procedure Estimated Blood Loss Check Surgery Details section. Procedure Findings Check Surgery Details section. Procedure Specimens Taken Check Surgery Details section.
--- OUTSIDE RECORDS SUMMARY | 2023-08-16 10:00 | XMS_ITS | Encounter Summary ---
Author Name Unknown Organization [facility] Address [address] [place] [address] Care Team Providers Care Nut Threader Name Role Phone Unavailable Primary Care Provider Unavailabl e Reason for Referral * MRI/CAT/PET Scan (Routine) - Authorized Specialty Diagnoses / Procedures Referred By Contac t Referred To Contact Radiology Diagnoses Loss Visual Procedures CT Head with IV Contrast Red Gallego M.D. [address] [place] [address] [facility] Referral ID Status Reason Start Date Expiration Date V isits Requested Visits Authorized [id number] Authorized 07/25/2023 07/24/2024 1 1 * MRI/CAT/PET Scan (Routine) - Closed Specialty Diagnoses / Procedures Referred By Janeth phillips Referred To Contact Radiology Diagnoses Loss Visual Procedures CT Head Neck Angiogram with IV Contrast Red Gallego M.D. [address] [place] [address] [facility] Referral ID Status Reason Start Date Expiration Date Visits Re quested Visits Authorized [id number] Closed 07/25/2023 07/24/2024 1 1 Encounter Details Date Type Department Care Team (Late st Contact Info) Description 07/25/2023 Orders Only Department of Ophthalmology in [place], [place] [address] [place] [address] Red Gallego M.D. [address] [place] [address] Loss Visual (Primary Dx); Defect Visual Field Social History Tobacco Use Types Packs/Day Years Used Date Smoking Tobacco: Unknown [facility] Utilities Answer Date Recorded In the [...] your living situation today? I have a [facility] place to live 07/25/2023 Sex and Gender Information Value Date Recorded Sex Assigned at Male 07/25/2023 8:23 PM CDT Gender Identity Male 07/25/2023 8:23 PM CDT Sexual Orientation Straight 07/25/2023 8: 23 PM CDT documented as of this encounter Plan of Treatment Scheduled Orders Name Type Priority Associated Diagnoses Orde r Schedule CT Head with IV Contrast Imaging RAD - Routine (most inpatients and all outpatients) Loss Visual Expected: 07/25/2023, Expires: 10/23/2024 documented as of this encounter Results * [...] 8:13 AM CDT 07/30/2023 8:41 AM CDT Narrative Authorizing Provider Result Celina Gallego M.D. LAB BLOOD ADD-ON [facility] [address] [place] [address], [facility] [address] [place] [address] [facility] [address] [place] [address] * (ABNORMAL) CRP (C-Reactive Protein) (07/30/2023 8:13 AM CDT) C-Reactive Protein (CRP), S 33.6(H) <5.0 mg/L 07/30/2023 9:14 AM CDT DTL Blood (Blood, Venous) 07/30/2023 8:13 AM CDT 07/30/2023 8:52 AM CDT Red Gallego M.D. LAB BLOOD ADD-ON Performing Organization Address City/[facility]/ZIP Co de Phone Number [facility] [address] [place] [address], [facility] [address] [place] [address] * (ABNORMAL) Sedimentation Rate (07/30/2023 8:13 AM CDT) Sedimentation Rate, B 42(H) 3 - 28 mm/h 07/30/2023 10:11 AM CDT DTL Blood (Blood, Venous) 07/30/2023 8:13 AM CDT 07/30/2023 8:41 AM CDT Narrative Authorizing Provider Result Celina Gallego M.D. LAB BLOOD ADD-ON [facility] [address] [place] [address], [facility] [address] [place] [address] * Creatinine with Estimated GFR (07/30/2023 8:13 AM CDT) Creatinine 1.15 0.74 - 1.35 mg/dL 07/30/2023 9:14 AM CDT DTL Estimated GFR (eGFR) 66 >=60 mL/min/BSA 07/30/2023 9:14 AM CDT DTL Comment: Estimated GFR calculated using the 2020 CKD_EPI creatinine equation. Blood (Blood, Venous) 07/30/2023 8:13 AM CDT 07/30/2023 8:52 AM CDT Red Gallego M.D. LAB BLOOD ADD-ON [facility] [address] [place] [address], [facility] [address] [place] [address] * CT Head Neck Angiogram with IV Contrast (07/29/2023 2:33 PM CDT) Anatomical Region Laterality Modality Head and Neck, Neuroradiolog y RST LOS, Neuroradiology ARZ LOS, Neuroradiology FLA LOS N/A Computed Tomography, Compute d Tomography [...]
--- OUTSIDE RECORDS SUMMARY | 2023-08-16 10:00 | XMS_ITS | Encounter Summary ---
Author Name Unknown Organization [facility] Address [address] [place] [address] Care Team Providers Care Guest Relations Associate Name Role Phone Unavailable Primary Care Provider Unavailabl e Encounter Details Date Type Department Care Team (Latest Contact Info) Description 07/30/2023 11:15 AM CDT Ancillary Procedure Department of Ophthalmology in [place], [place] [address] [place] [address] Red Gallego M.D. [address] [place] [address] Neuropathy Optic Social History Tobacco Use Types Packs/Day Years Used Date Smoking Tobacco: Unknown [facility] Utilities Answer Date Recorded In the [...]
--- OUTSIDE RECORDS SUMMARY | 2023-08-16 10:00 | XMS_ITS | Encounter Summary ---
Author Name Unknown Organization [facility] Address [address] [place] [address] Care Team Providers Care Assistant Associate Full Professor Name Role Phone Unavailable Primary Care Provider Unavailabl e Reason for Visit * Reason Onset Date Comments Pre-visit Testing Orders 05/18/2023 Encounter Details Date Type Department Care Team (Latest Contact Info) Description 05/18/2023 Clinical Communication Department of Ophthalmology in [place], [place] [address] [place] [address] Red Gallego M.D. [address] [place] [address] Pre-visit Testing Orders Social History Tobacco Use [...] documented in this encounter Plan of Treatment Not on file documented as of this encounter Results * Optical Coherence Tomography - Optic Nerve - OU - Both Eyes (07/30/2023 1:36 PM CDT) Narrative OPHTHALMOLOGY IMAGING EXAM - 07/30/2023 1:41 PM CDT OCT device used was [employer] . Notes [facility] - Patient would not allow us to complete exam. Managed to get most scans done on the right eye. No left eye scans. The interpretation report for this test can be found in the Testing section of the chart note dated 07/30/2023 Red Gallego M.D. OPHTH TOMOGRAPHY Performing Organization Address [facility] de Phone Number OPHTHALMOLOGY IMAGING [...] Gallego M.D. OPHTH PHOTOGRAPHY Performing Organization Address [facility] Co de Phone Number OPHTHALMOLOGY IMAGING EXAM [...] dated 07/30/2023 Red Gallego M.D. 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
--- OUTSIDE RECORDS SUMMARY | 2023-08-16 10:00 | XMS_ITS | Encounter Summary ---
Author Name Unknown Organization [facility] Address [address] [place] [address] Care Team Providers Care Wharfinger Chief Name Role Phone Unavailable Primary Care Provider Unavailabl e Encounter Details Date Type Department Care Team (Latest Contact Info) Description 07/30/2023 12:00 PM CDT Ancillary Procedure Department of Ophthalmology in [place], [place] [address] [place] [address] Red Gallego M.D. [address] [place] [address] Neuropathy Optic Social History Tobacco Use Types Packs/Day Years Used Date Smoking Tobacco: Unknown [facility] Utilities Answer Date Recorded In the [...] OCT device used was Cirrus . Notes [facility] - Patient would not allow us to [...]
--- OUTSIDE RECORDS SUMMARY | 2023-08-16 10:00 | XMS_ITS | Encounter Summary ---
Author Name Unknown Organization [facility] Address [address] [place] [address] Care Team Providers Care Shirt Folding Machine Operator Name Role Phone Unavailable Primary Care Provider Unavailabl e Reason for Visit * Reason Onset Date Comments Appt Request 07/25/2023 Encounter Details Date Type Department Care Team (Latest Contact Info) Description 07/25/2023 Clinical Communication Department of Ophthalmology in [place], [place] [address] [place] [address] Red Gallego M.D. [address] [place] [phone] Appt Request Social History Tobacco Use Types Packs/Day Years Used Date Smoking Tobacco: Unknown [facility] Utilities Answer Date Recorded In [...] your living situation today? I have a [facility] place to live 07/25/2023 Sex [...]
--- OUTSIDE RECORDS SUMMARY | 2023-08-16 10:00 | XMS_ITS | Encounter Summary ---
Author Name Unknown Organization [facility] Address [address] [place] [address] Care Team Providers Care Shaper Hand Name Role Phone Unavailable Primary Care Provider Unavailabl e Reason for Referral * Outpatient (Routine) - Authorized Specialty Diagnoses / Procedures Referred By Janeth phillips Referred To Contact Ophthalmology Diagnoses Ischemia Retina Glaucoma Neovascular Red Gallego M.D. 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 [address] [place] [address] [facility] Referral ID Status Reason Start Date Expiration Date V isits Requested Visits Authorized [id number] Authorized 07/30/2023 07/29/2024 1 1 Reason for Visit * Reason Comments Decreased Visual Acuity * Appointment Request (Routine) - Closed Specialty Diagnoses / Procedures Referred By Contac t Referred To Contact Ophthalmology Diagnoses Neuropathy Optic Ischemic Graciela Giron O.D. [address], [place] [address] Referral ID Status Reason Start Date Expiration Date Visits Re quested Visits Authorized [id number] Closed 04/27/2023 04/26/2024 1 1 Encounter Details Date Type Department Care Team (Latest Contact Info) Description 07/30/2023 3:15 PM CDT Comprehensive Visit Department of Ophthalmology in [place], [place] [address] [place] [phone] Red Gallego M.D. [address] [place] [phone] Ischemia Retina (Primary Dx); Arteritis Temporal (HCC); Glaucoma Neovascular; Intraocular Lens Implant Status Post; Occlusion Carotid Artery Left Social History Tobacco Use Types Packs/Day Years Used Date Smoking Tobacco: Unknown [facility] Utilities Answer Date Recorded In the past 12 months has [employer], gas, oil, or water [email or web address] threatened to shut off services in your [...] living situation today? 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 He was diagnosed with pneumonia; there was reportedly some evidence of UTI as well. This is the likely reason his ESR and CRP were elevated 07/29. In the setting of acute infection elevating his inflammatory markers we can defer steroid initiation until deemed safe from his treating doctors. I still think a temporal artery biopsy should be obtained out of an abundance of caution. I asked the patient/ to reschedule the visit with [facility] for biopsy when they know when the patient will be out ofthe hospital. 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
--- OUTSIDE RECORDS SUMMARY | 2023-08-16 10:00 | XMS_ITS | Encounter Summary ---
Author Name Unknown Organization [facility] Address [address] [place] [address] Care Team Providers Care Gear Inspector Name Role Phone Unavailable Primary Care Provider Unavailabl e Reason for Visit * MRI/CAT/PET Scan (Routine) - Closed Specialty Diagnoses / Procedures Referred By Janeth t Referred To Contact Radiology Diagnoses Neuropathy Optic Procedures MR Examination Not Performed MR Orbits without and with IV Contrast Red Gallego M.D. [address] [place] [address] [facility] Referral ID Status Reason Start Date Expiration Date Visits Re quested Visits Authorized [id number] Closed 07/04/2023 07/03/2024 1 1 Encounter Details Date Type Department Care Team (Latest Contact Info) Description 07/24/2023 2:40 PM CDT - 07/24/2023 11:59 PM CDT Hospital Encounter Department of Radiology, [facility] in [place], [place] [address] [place] [address] Red Gallego M.D. [address] [place] [phone] Neuropathy Optic Discharge Disposition: Home or Self Care Social History Tobacco Use Types Packs/Day Years Used Date Smoking Tobacco: Unknown [facility] Utilities Answer Date Recorded In [...] your living situation today? I have a [facility] place to live 07/25/2023 Sex and [...] Phone number of accompanying adult wait in [facility] Does patient have an allergy [...] patient discomfort and claustrophobia. Red Gallego M.D. Sujey MRI PROCEDURE S * MR Examination Not [...]
--- OUTSIDE RECORDS SUMMARY | 2023-08-16 10:00 | XMS_ITS | Clinical Summary ---
Author Name Unknown Organization [facility] Address [place], [place] [address] Care Team Providers Care Accuracy Expert Name Role Phone Marcio Gonzalez MD Primary Care Provider [phone] Allergies Active Allergy Reactions Criticality Noted Date [...] bedtime. 90 Tablet 3 11/09/19 23 Active acetic acid 0.25% 0.25 % irrigation APPLY 5 MINUTE SOAK TO WOUND EVERY OTHER DAY AND NEEDED FOLLOWING WOUND CARE ORDERS. 10/20/19 23 Active ammonium lactate 12% topical (LACHYDRIN) 12 % lotion APPLY TO LEGS AND FEET ONCE DAILY. 10/20/19 23 Active apixaban (ELIQUIS) 5 mg tabletIndications: [...] mg) by mouth once daily. 90 Capsule 06/19/19 24 Active brimonidine (ALPHAGAN) 0.2 % ophthalmic solution Place 1 Drop into left eye two times daily. Active traMADoL (ULTRAM) 50 mg tabletIndications: Right leg pain TAKE 1 TABLET BY MOUTH DAILY NEEDED FOR WOUND PAIN OR BACK PAIN 30 Tablet 1 07/27/19 24 Active fluticasone crj-pegevjizmnem-n ilanterol (Trelegy Ellipta) 100-62.5-25 mcg inhalerIndications :Panlobular emphysema (HC) INHALE 1 PUFF BY MOUTH EVERY DAY 180 Each 08/11/19 24 Active fluticasone nqc-npirkjpcrlns-m ilanterol (Trelegy Ellipta) 100-62.5-25 mcg inhalerIndications :Panlobular emphysema (HC) Inhale 1 Puff by mouth once daily. 180 Each 1 11/09/19 23 024 Discontinued traMADoL (ULTRAM) 50 mg tabletIndications: Right leg pain TAKE 1 TABLET BY MOUTH DAILY NEEDED FOR WOUND PAIN OR BACK PAIN 30 Tablet 06/18/19 24 024 Discontinued(Re order (E-cancel not sent)) Active Problems Problem Noted Date Diagnosed Date History of stroke 07/27/2023 Overview: left MCA territory ischemic stroke, pmh of HLD, tobacco use, morbid obesity, COPD, BRITNEY and chronic back pain who is following up in stroke clinic today. He had presented to [facility]2018 with difficulty finding words and [...] Word Finding Difficulties Recommended follow up at [facility] Stroke [facility]. Speech therapy, OT, and PHYSICAL [...] Problem Noted Date Diagnosed Date Resolved Date detention (current) use of anticoagulants 07/07/2009 09/21/2010 Overview: INR Goal Range: 1.8 - 2.5 Encounters Date Type Department Care Team Description 08/10/2023 Refill [facility] [address] [place] [address] Marcio Gonzalez MD Refill Request (Trelegy Ellipta) 08/08/2023 2:00 PM CDT Office Visit [facility] [address] [place] [address] Marcio Gonzalez MD Hospital F/U (Pneumonia /[facility] 07/29 - 08/01/Patient reports doing better) 08/08/2023 Travel 07/30/2023 Orders Only [facility] Scanner 1 scan: [facility]-Ord[facility] PORT[facility], 07/30/2023 07/27/2023 10:30 AM CDT Office Visit [facility] [address] [place] [address] Marcio Gonzalez MD Medication Management (Tramadol follow up//Spouse has questions about atenolol - not a current medication) 07/27/2023 Travel 06/19/2023 Telephone [facility] [address] [facility] [address] [place] [phone] Dave Maya MD Refill Request (Diltiazem/) 06/17/2023 Telephone [facility] [address] [place] [address] Marcio Gonzalez MD Refill Request (Tramadol) 05/22/2023 10:00 AM RAILWAY SWITCHMAN Office Visit [facility] [address] [phone] Dave Maya MD CV General Cardiology Est (3 mo f/u per Dr Maya /DX:I48.0 (ICD-10-CM) - Paroxysmal atrial fibrillation (HC) //PCP: Marcio Gonzalez MD/) 05/22/2023 Travel 05/18/2023 Refill [facility] [address] [place] [address] Marcio Gonzalez MD Refill Request (Tramadol) from Last 3 Months Immunizations Name Administration Dates Next Due COVID-19 Vaccine Spikevax (M oderna 50mcg/0.5mL) 12YO+ [id number] Formula PF 01/17/2023 COVID-19 vaccine (Pfizer-BioNTech 30mcg/0.3mL) P FMDV 06/22/2020,06/01/2020 Influenza, High-dose Inactivated 06/06/2019,12/09 Influenza, High-dose [...] Types Packs/Day Years Used Date Smoking Tobacco: Former Cigarettes 1 60.3 1 964 - 07/30/2023 Smokeless Tobacco: Never Tobacco Cessation:Counseling Given: Not Answered Comments:1.5 ppd 05/22/23 Alcohol [...] Sign Reading Time Taken Comments Blood Pressure 112/65 08/08/2023 2:12 PM CDT Pulse 78 08/08/2023 2:12 PM CDT Temperature 37 ??C (98.6 ??F) 07/27/2023 10: 38 AM CDT Respiratory Rate 18 05/02/2023 10:5 7 AM RAILWAY SWITCHMAN Oxygen Saturation 92% 08/08/2023 2:12 PM CDT Inhaled Oxygen Concentration - - Weight 134.9 kg (297 lb 4.8 oz) 024 10:38 AM CDT Height 185.4 cm (6' 1) 05/22/2023 9:53 AM RAILWAY SWITCHMAN Body Mass Index 39.22 05/22/2023 9:53 AM RAILWAY SWITCHMAN Plan of Treatment Health Maintenance Due Date [...] history exists Medical Devices Implanted Type Area Freight Associate Device Identifier Shelf Expiration Date Model / Serial / Lot Tissue Pericardium 0.8x8cm [employer] Bovine - [id number] Implanted:Qty: 1 on 02/13/2022 by Kael Hernandez MD at [facility] Cv Implants Right: Groin [employer] 02/27/2022 PFP 0.8X8 / / [id number] Stent Aaa [id number] Excluder Ibc - [id number] Implanted:Qty: 1 on 02/13/2022 by Kael Hernandez MD at [facility] Right: Iliac Artery [employer] 2024 [id number] / [id number] / Stent Aaa [id number] Excluder Iic - [id number] Implanted:Qty: 1 on 02/13/2022 by Kael Hernandez MD at [facility] Right: Iliac Artery [employer] 04/20/2024 [id number] / [id number] / Procedures Procedure Name Priority Date/Time Associated Diagnosis Comments SCAN-RADIOLOGY REPORT 07/30/2023 12:00 AM CDT ANTI HCV Routine 02/08/2022 11:20 AM CDT Need for hepatitis C screening test CT CHEST SCREENING LOW DOSE WO CONTRAST Routine 11/01/2021 2:40 PM CDT Encounter for screening for malignant neoplasm of lung in current smoker with 30 pack year history or greater Personal history of nicotine dependence from Last 3 Months or Most Recently Relevant to Health Maintenance Results * SCAN-RADIOLOGY REPORT (07/30/2023 12:00 AM CDT) Anatomical Region Laterality Modality Other Scanner OTHER * ANTI HCV (02/08/2022 11:20 AM CDT) HEPATITIS C ANTIBODY Non-React mandie Non-React mandie 02/09/2022 2:56 PM CDT [facility] Comment:Antibodies to HCV no t detected; does not exclude the possibility of exposure to HCV. Blood BLOOD SPECIMEN / Unknown Venipuncture / Unknown 02/08/2022 11:20 AM CDT 02/08/2022 11:27 AM CDT Marcio Gonzalez MD SEND OUTS [facility] [address] [place] [address], [place] * CT CHEST SCREENING LOW DOSE [...] @11/02/2021 8:56:18 AM Pediatric and Body Radiology [email or web address] Narrative 11/02/2021 9:43 AM CDT For Patients: [...] Skeletal: No new suspicious abnormalities. Janae Ny STRESS TEST TECHNICIAN CT from Last 3 Months or Most Recently Relevant to Health Maintenance Advance Directives Documents on File Type Date Recorded Patient Salvage Winder Expl anation Treatment Guidelines 02/11/2022 * Full Code (Latest Code Status on File) Date Activated Date Inactivated Comments 02/13/2022 1:00 PM 02/14/2022 5:39 PM Question Answer Comments Code Status Discussion: Reviewed Preferences * Full Code Date Activated Date Inactivated Comments 02/13/2022 6:05 AM 02/13/2022 12:59 PM Question Answer Comments Code Status Discussion: Unable to Assess Preferences, Provider to review later Care Teams Accuracy Expert Relationship Specialty Start Date End Date [place] [address] PCP - General Family Practice 12/20/15
--- OUTSIDE RECORDS SUMMARY | 2023-08-16 10:00 | XMS_ITS | Encounter Summary ---
Author Name Unknown Organization [facility] Address [address] [place] [address] Care Team Providers Care Hand I Thermal Cutter Name Role Phone Unavailable Primary Care Provider Unavailabl e Encounter Details Date Type Department Care Team (Late st Contact Info) Description 07/30/2023 2:10 PM CDT Ancillary Procedure Department of Ophthalmology in [place], [place] [address] [place] [address] Red Gallego M.D. [address] [place] [address] Social History Tobacco Use Types Packs/Day Years Used Date Smoking Tobacco: Unknown [facility] Utilities Answer Date Recorded In the [...] your living situation today? I have a [facility] place to live 07/25/2023 Sex and [...]
--- OUTSIDE RECORDS SUMMARY | 2023-08-16 10:00 | XMS_ITS | Encounter Summary ---
Author Name Unknown Organization [facility] Address [address] [place] [address] Care Team Providers Care Driver Manager Name Role Phone Unavailable Primary Care Provider Unavailabl e Encounter Details Date Type Department Care Team (Latest Contact Info) Description 07/30/2023 9:30 AM CDT Ancillary Procedure Department of Ophthalmology in [place], [place] [address] [place] [address] Red Gallego M.D. [address] [place] [address] Neuropathy Optic Social History Tobacco Use Types [...] your living situation today? I have a [facility] place to live 07/25/2023 Sex and [...] dated 07/30/2023 Red Gallego M.D. OPHTH VISUAL FIELMER D OPHTHALMOLOGY IMAGING EXAM documented in this encounter Visit Diagnoses Diagnosis Neuropathy Optic documented in this encounter
--- OUTSIDE RECORDS SUMMARY | 2023-08-16 10:00 | XMS_ITS | Encounter Summary ---
Author Name Unknown Organization [facility] Address [address] [place] [address] Care Team Providers Care Medical Driver Name Role Phone Unavailable Primary Care Provider Unavailabl e Reason for Referral * MRI/CAT/PET Scan (Routine) - Closed Specialty Diagnoses / Procedures Referred By Avelinaac alan Referred To Contact Radiology Diagnoses Loss Visual Procedures CT Head Neck Angiogram with IV Contrast Red Gallego M.D. [address] [place] [address] [facility] Referral ID Status Reason Start Date Expiration Date Visits Re quested Visits Authorized [id number] Closed 07/25/2023 07/24/2024 1 1 Reason for Visit * MRI/CAT/PET Scan (Routine) - Closed Specialty Diagnoses / Procedures Referred By Janeth phillips Referred To Contact Radiology Diagnoses Loss Visual Procedures CT Head Neck Angiogram with IV Contrast Red Gallego M.D. [address] [place] [address] [facility] Referral ID Status Reason Start Date Expiration Date Visits Re quested Visits Authorized [id number] Closed 07/25/2023 07/24/2024 1 1 Encounter Details Date Type Department Care Team (Latest Contact Info) Description 07/29/2023 1:27 PM CDT - 07/29/2023 11:59 PM CDT Hospital Encounter Department of Radiology, [facility], in [place], [place] [address] [place] [address] Red Gallego M.D. [address] [place] [address] Loss Visual Discharge Disposition: Home or Self Care Social History Tobacco Use Types Packs/Day Years Used Date Smoking Tobacco: Unknown [facility] Utilities Answer Date Recorded In [...] your living situation today? I have a [facility] place to live 07/25/2023 [...]
--- OUTSIDE RECORDS SUMMARY | 2023-08-16 10:00 | XMS_ITS | Encounter Summary ---
Author Name Unknown Organization [facility] Address [address] [place] [address] Care Team Providers Care Deliverer Pharmacy Name Role Phone Unavailable Primary Care Provider Unavailabl e Encounter Details Date Type Department Care Team (Late st Contact Info) Description 07/30/2023 10:45 AM CDT Ancillary Procedure Department of Ophthalmology Social History Tobacco Use Types Packs/Day Years Used Date Smoking Tobacco: Unknown [facility] Utilities Answer Date Recorded In the past 12 months has th e electric, gas, oil, or water [employer] threatened to shut off services in your [...] living situation today? I have a [facility] place to live 07/25/2023 Sex and Gender [...]
--- OUTSIDE RECORDS SUMMARY | 2023-08-16 10:00 | XMS_ITS | Encounter Summary ---
Author Name Unknown Organization [facility] Address [address] [place] [address] Care Team Providers Care Pediatric Clinical Nurse Specialist Name Role Phone Unavailable Primary Care Provider Unavailabl e Encounter Details Date Type Department Care Team (Late st Contact Info) Description 07/30/2023 9:40 AM CDT Ancillary Procedure Department of Ophthalmology Social History Tobacco Use Types Packs/Day Years Used Date Smoking Tobacco: Unknown [facility] Utilities Answer Date Recorded In the past 12 months has th e electric, gas, oil, or water [employer] threatened to shut off services in your [...] your living situation today? I have a [facility] place to live 07/25/2023 Sex and [...]
--- OUTSIDE RECORDS SUMMARY | 2023-08-16 10:00 | XMS_ITS | Encounter Summary ---
Author Name Unknown Organization [facility] Address [address] [place] [address] Care Team Providers Care Heat Seal Operator Name Role Phone Unavailable Primary Care Provider Unavailabl e Encounter Details Date Type Department Care Team (Latest Contact Info) Description 07/30/2023 7:50 AM CDT - 07/30/2023 11:59 PM CDT Hospital Encounter Department of Laboratory Medicine and Pathology, [facility], in [place], [place] [address] [place] [address] Red Gallego M.D. [address] [place] [address] Loss Visual; Defect Visual Field Discharge Disposition: Home or Self Care Social History Tobacco Use Types Packs/Day Years Used Date Smoking Tobacco: Unknown [facility] Utilities Answer Date Recorded In the past 12 months has [facility] electric, gas, oil, or water company threatened [...] every 4 (four) hours as needed. 11/08/2022 ammonium lactate (LAC-HYDRIN) 12 % lotion Apply 1 Application topically daily. aspirin 81 mg chewable tablet Chew 81 mg daily. atorvastatin (LIPITOR) 40 mg tablet Take 40 mg by mouth at bedtime. brimonidine (ALPHAGAN) 0.2 % ophthalmic solution Administer 1 drop into both eyes 2 (two) times a day. Eliquis 5 mg tablet Take 5 mg by mouth 2 (two) times a day. furosemide (LASIX) 20 mg tablet Take 20 mg by mouth 2 (two) times a day. latanoprost (XALATAN) 0.005 % ophthalmic solution Administer 1 drop into both eyes at bedtime. 07/07/2023 predniSONE (DELTASONE) 20 mg tablet Take 3 tablets (60 mg total) by mouth daily. 90 tablet 07/30/2023 08/29/2023 traMADoL (ULTRAM) 50 mg tablet Take 50 mg by mouth daily. 07/27/2023 Trelegy Ellipta 100-62.5-25 mcg inhaler 1 puff daily. documented as of this encounter Plan of [...] M.D. LAB BLOOD ADD-ON Performing Organization Address City/[facility]/ZIP Co de Phone Number [facility] [address] [facility] [address] [place] [address] * (ABNORMAL) CRP (C-Reactive Protein) (07/30/2023 8:13 AM CDT) C-Reactive Protein (CRP), S 33.6(H) <5.0 mg/L 07/30/2023 9:14 AM CDT DTL Blood (Blood, Venous) 07/30/2023 8:13 AM CDT 07/30/2023 8:52 AM CDT Rde Gallego M.D. LAB BLOOD ADD-ON [facility] [address] [facility] [address] [place] [address] * (ABNORMAL) Sedimentation Rate (07/30/2023 8:13 AM CDT) Sedimentation Rate, B 42(H) 3 - 28 mm/h 07/30/2023 10:11 AM CDT DTL Blood (Blood, Venous) 07/30/2023 8:13 AM CDT 07/30/2023 8:41 AM CDT Red Gallego M.D. LAB BLOOD ADD-ON Performing Organization Address City/[facility] Co de Phone Number [facility] [address] [place] [address], [facility] [address] [place] [address] * Creatinine with Estimated GFR (07/30/2023 8:13 AM CDT) Creatinine 1.15 0.74 - 1.35 mg/dL 07/30/2023 9:14 AM CDT DTL Estimated GFR (eGFR) 66 >=60 mL/min/BSA 07/30/2023 9:14 AM CDT DTL Comment: Estimated GFR calculated using the 2020 CKD_EPI creatinine equation. Blood (Blood, Venous) 07/30/2023 8:13 AM CDT 07/30/2023 8:52 AM CDT Red Gallego M.D. LAB BLOOD ADD-ON Performing Organization Address City/[facility]/ZIP Co de Phone Number [facility] [address] [place] [address], [facility] [address] [place] [address] documented in this encounter Visit Diagnoses Diagnosis Loss Visual Defect Visual Field documented in this encounter
--- OUTSIDE RECORDS SUMMARY | 2023-08-16 10:00 | XMS_ITS | Encounter Summary ---
Author Name Unknown Organization [facility] Address [address] [place] [address] Care Team Providers Care Drying Machine Operator Name Role Phone Unavailable Primary Care Provider Unavailabl e Encounter Details Date Type Department Care Team (Late st Contact Info) Description 07/03/2023 Orders Only Department of Ophthalmology in [place], [place] [address] [place] [address] Red Gallego M.D. [address] [place] [phone] Social History Tobacco Use Types Packs/Day Years Used Date Smoking Tobacco: Unknown [facility] Utilities Answer Date Recorded In the past 12 months has [facility] electric, gas, oil, or water company [...] your living situation today? I have a [facility] place to live 07/25/2023 Sex and [...]
== END 2023-08-16 09:58 | disposition home or self-care (01) ==
LOC: WOUND 09:57
PROVIDERS: PCP Family Medicine; Visit Provider Nurse Practitioner Family
DX: I87.311 Chronic venous hypertension (idiopathic) with ulcer of right lower extremity (principal); L97.212 Non-pressure chronic ulcer of right calf with fat layer exposed; I89.0 Lymphedema, not elsewhere classified; Z72.0 Tobacco use
CPT/HCPCS: 11042

== ENCOUNTER 2023-08-30 09:52 | Outpatient (CLI) | payer MEDICARE, BC, SELFPAY ==
--- OUTSIDE RECORDS SUMMARY | 2023-08-30 10:01 | XMS_ITS | Encounter Summary ---
Author Organization [facility] Address [address] [place] [address] Care Team Providers Care Councilperson Name Role Phone Unavailable Primary Care Provider Unavailabl e Encounter Details Date Type Department Care Team (Late st Contact Info) Description 07/30/2023 Episode Changes Department of Ophthalmology in [place], [place] [address] [place] [address] Giana Mancilla Social History Tobacco Use Types Packs/Day Years Used Date Smoking Tobacco: Unknown [facility] Utilities Answer Date Recorded In [...] your living situation today? I have a [facility] place to live 07/25/2023 Sex [...]
--- OUTSIDE RECORDS SUMMARY | 2023-08-30 10:01 | XMS_ITS | Encounter Summary ---
Author Organization [facility] Address [address] [place] [address] Care Team Providers Care Youth Leader Name Role Phone Unavailable Primary Care Provider Unavailabl e Encounter Details Date Type Department Care Team (Late st Contact Info) Description 07/30/2023 Ancillary Procedure Department of Ophthalmology Social History Tobacco Use Types Packs/Day Years Used Date Smoking Tobacco: Unknown [facility] Utilities Answer Date Recorded In [...]
--- OUTSIDE RECORDS SUMMARY | 2023-08-30 10:01 | XMS_ITS | Encounter Summary ---
Author Organization [facility] Address [address] [place] [address] Care Team Providers Care Yard Spotter Name Role Phone Unavailable Primary Care Provider Unavailabl e Encounter Details Date Type Department Care Team (Late st Contact Info) Description 08/01/2023 Clinical Communication Division of roof mechanic in [place], [place] [address] [place] [address] Prescheduling, Provider Social History Tobacco Use Types Packs/Day Years Used Date Smoking Tobacco: Unknown [facility] Utilities Answer Date Recorded In the past 12 months has [facility], gas, oil, or water [employer] threatened to shut off services in your [...] your living situation today? I have a [facility] place to live 07/25/2023 Sex and [...]
--- OUTSIDE RECORDS SUMMARY | 2023-08-30 10:01 | XMS_ITS | Clinical Summary ---
Author Organization [facility] Address [address] [place] [address] Care Team Providers Care Tool Lathe Operator Name Role Phone Unavailable Primary Care Provider Unavailabl e Source Comments Patient records contain information from all sites at [facility]. For routine questions regarding patient records, call [phone] during business hours, M-F 8:00 AM - 5:00 PM Central Time. Record requests for emergency care only can be directed to [phone] at any time.[facility] Allergies Active Allergy Reactions Criticality Noted Date [...] total) by mouth daily. 90 tablet 07/30/2023 Discontinued Hospital, Clinic, or Other Facility Administered Medication [...] Team Description 08/01/2023 Clinical Communication Division of potato inspector in [address] [address] Prescheduling, Provider 07/31/2023 Clinical Communication Department of Ophthalmology in [place], [place] [address] [place] [phone] Rachel Collins M.D., Ph.D. 07/30/2023 3:20 PM CDT Ancillary Procedure Department of Ophthalmology 07/30/2023 3:15 PM CDT Comprehensive Visit Department of Ophthalmology in [place], [place] [address] [place] [phone] Red Gallego M.D. Ischemia Retina (Primary Dx); Arteritis Temporal (HCC); Glaucoma Neovascular; Intraocular Lens Implant Status Post; Occlusion Carotid Artery Left 07/30/2023 2:10 PM CDT Ancillary Procedure Department of Ophthalmology in [place], [place] [address] [place] [phone] Red Gallego M.D. 07/30/2023 1:25 PM CDT Ancillary Procedure Department of Ophthalmology 07/30/2023 12:00 PM CDT Ancillary Procedure Department of Ophthalmology in [place], [place] [address] [place] [address] Red Gallego M.D. Neuropathy Optic 07/30/2023 11:15 AM CDT Ancillary Procedure Department of Ophthalmology in [place], [place] [address] [place] [address] Red Gallego M.D. Neuropathy Optic 07/30/2023 10:45 AM CDT Ancillary Procedure Department of Ophthalmology 07/30/2023 9:40 AM CDT Ancillary Procedure Department of Ophthalmology 07/30/2023 9:30 AM CDT Ancillary Procedure Department of Ophthalmology in [place], [place] [address] [place] [phone] Red Gallego M.D. Neuropathy Optic 07/30/2023 7:50 AM CDT - 07/30/2023 11:59 PM CDT Hospital Encounter Department of Laboratory Medicine and Pathology, [facility] in [place], [place] [address] [place] [phone] Red Gallego M.D. Loss Visual; Defect Visual Field Discharge Disposition: Home or Self Care 07/30/2023 Clinical Communication Department of Ophthalmology in [address] [address] Provider, Unknown Appt Request 07/30/2023 Ancillary Procedure Department of Ophthalmology 07/30/2023 Episode Changes Department of Ophthalmology in [place], [place] [address] [place] [phone] Giana Mancilla 07/29/2023 1:27 PM CDT - 07/29/2023 11:59 PM CDT Hospital Encounter Department of Radiology, [facility] in [place], [place] [address] [place] [phone] Red Gallego M.D. Loss Visual Discharge Disposition: Home or Self Care 07/25/2023 Orders Only Department of Ophthalmology in [place], [place] [address] [place] [phone] Red Gallego M.D. Loss Visual (Primary Dx); Defect Visual Field 07/25/2023 Clinical Communication Department of Ophthalmology in [place], [place] [address] [place] [address] Red Gallego M.D. Appt Request 07/24/2023 2:40 PM CDT - 07/24/2023 11:59 PM CDT Hospital Encounter Department of Radiology, [facility] in [place], [place] [address] [place] [address] Red Gallego M.D. Neuropathy Optic Discharge Disposition: Home or Self Care 07/03/2023 Orders Only Department of Ophthalmology in [place], [place] [address] [place] [address] Red Gallego M.D. from Last 3 Months Social History Tobacco Use Types Packs/Day Years Used Date Smoking Tobacco: Unknown [facility] Utilities Answer Date Recorded In the past 12 months has [employer], gas, oil, or water [employer] threatened to shut off services in your [...] your living situation today? I have a [facility] place to live 07/25/2023 Sex [...] Fall Risk Screen (Annual) 04/09/2023 COVID-19 Vaccine (7 2022-2 4 season) 2023 01/17/2023, 01/10/2022, 08/23/2021, Additional history exists Potassium Level 03/27/2024 03/27/2023, 0 11/2021, 02/13/2022, Additional history exists Sodium Level 03/27/2024 03/27/2023, 0 11/2021, 02/13/2022, Additional history exists Creatinine Level (Kidney Fun ction Test) 07/29/2024 07/30/2023, 03/27/2023, 02/14/2022, Additional history exists Pneumococcal vaccine (65+ years) Completed 05/19/2015, 06/05/2013, 03/14/2000 Abdominal Aortic Aneurysm (A AA) Screen Discontinued 07/30/2018, 01/11/2016 Influenza Vaccine Completed 01/17/2023, , 02/22/2021, Additional history exists Medical Devices Implanted Type Area Tooth Inspector Device Identifier Shelf Expiration Date Model / Serial / Lot J J Sig Patella Oval 41 - [id number] [id number] Implanted:Qty: 1 on 10/23/2011 Knee Implant Other/Legacy - See Implant Description [employer] Description:Device Manufactu rer - [employer]. Body Location - Other. Left. Device Status Text - [id number] [id number]. Depuy-Insert Stabilized Sz 5 12.5mm - Briones [id number] Implanted:Qty: 1 on 10/23/2011 Knee Implant Other/Legacy - See Implant Description [employer] Description:Device Manufactu rer - [employer] J [employer]. Body Location - Other. Left. Device Status Text - KNEE [id number]. Depuy-Tib Tray Mod Cement Cocr Sz5 - Briones [id number] Implanted:Qty: 1 on 10/23/2011 Knee Implant Other/Legacy - See Implant Description [employer] Description:Device Manufactu rer - J [employer] J [employer]. Body Location - Other. Left. Device Status Text - KNEE [id number]. Sigma Post Stab.W Lug Fem Sz 6 Lt - Briones [id number] Implanted:Qty: 1 on 10/23/2011 Knee Implant Other/Legacy - See Implant Description [employer] Description:Device Manufactu rer - [employer]. Body Location - Other. Left. Device Status Text - KNEE [id number]. Cement Bone Large - Briones [id number] Implanted:Qty: 2 on 10/23/2011 Misc Other [place] Description:Device Manufactu rer - [place] Amarilis.. Device [...] METABOLIC PANEL, S/P Routine 03/27/2023 3:[address] ABDOMEN PELVIS WITH IV CONTRAST RAD [...] RAD IMAGI NG PROCEDURES Performing Organization Address [facility] de Phone Number IIMS NA * Optical [...] Gallego M.D. OPHTH TOMOGRAPHY Performing Organization Address [facility] Co de Phone Number OPHTHALMOLOGY [...] Gallego M.D. OPHTH PHOTOGRAPHY Performing Organization Address [facility] de Phone Number OPHTHALMOLOGY [...] OPHTH VISUAL FIEL D Performing Organization Address [facility] de Phone Number OPHTHALMOLOGY IMAGING EXAM * (ABNORMAL) Sedimentation Rate (07/30/2023 8:13 AM CDT) Sedimentation Rate, B 42(H) 3 - 28 mm/h 07/30/2023 10:11 AM CDT DTL Blood (Blood, Venous) 07/30/2023 8:13 AM CDT 07/30/2023 8:41 AM CDT Red Gallego M.D. LAB BLOOD ADD-ON Performing Organization Address [facility] Co de Phone Number [facility] [address] [place] [address], [facility] [address] [place] [address] * (ABNORMAL) CBC with Differential, Blood (07/30/2023 [...] CDT Red Gallego M.D. LAB BLOOD ADD-ON [facility] [address] [place] [address], [facility] DTL [facility] [address] [place] [address] [facility] [address] [place] [address] * (ABNORMAL) CRP (C-Reactive Protein) (07/30/2023 8:13 AM CDT) C-Reactive Protein (CRP), S 33.6(H) <5.0 mg/L 07/30/2023 9:14 AM CDT DTL Blood (Blood, Venous) 07/30/2023 8:13 AM CDT 07/30/2023 8:52 AM CDT Red Gallego M.D. LAB BLOOD ADD-ON [facility] [address] [place] [address], [facility] [address] [place] [address] * Creatinine with Estimated GFR (07/30/2023 8:13 AM CDT) Pathologist [facility] Creatinine 1.15 0.74 - 1.35 mg/dL 07/30/2023 9:14 AM CDT DTL Estimated GFR (eGFR) 66 >=60 mL/min/BSA 07/30/2023 9:14 AM CDT DTL Comment: Estimated GFR calculated using the 2020 CKD_EPI creatinine equation. Blood (Blood, Venous) 07/30/2023 8:13 AM CDT 07/30/2023 8:52 AM CDT Red Gallego M.D. LAB BLOOD ADD-ON [facility] [address] [place] [address], [facility] [address] [place] [address] * CT Head Neck Angiogram with IV [...]
--- OUTSIDE RECORDS SUMMARY | 2023-08-30 10:01 | XMS_ITS | Encounter Summary ---
Author Organization [facility] Address [address] [place] [address] Care Team Providers Care Telephoto Engineer Name Role Phone Unavailable Primary Care Provider Unavailabl e Encounter Details Date Type Department Care Team (Latest Contact Info) Description 07/30/2023 9:30 AM CDT Ancillary Procedure Department of Ophthalmology in [place], [place] [address] [place] [address] Red Gallego M.D. [address] [place] [phone] Neuropathy Optic Social History Tobacco Use Types Packs/Day Years Used Date Smoking Tobacco: Unknown [facility] Utilities Answer Date Recorded In the past [...] chart note dated 07/30/2023 Red Gallego M.D. OPHUDAY RIOS FIEL D OPHTHALMOLOGY IMAGING EXAM documented in this encounter Visit Diagnoses Diagnosis Neuropathy Optic documented in this encounter
--- OUTSIDE RECORDS SUMMARY | 2023-08-30 10:01 | XMS_ITS | Encounter Summary ---
Author Organization [facility] Address [address] [place] [address] Care Team Providers Care Reel Repairer Name Role Phone Unavailable Primary Care Provider Unavailabl e Encounter Details Date Type Department Care Team (Late st Contact Info) Description 07/30/2023 10:45 AM CDT Ancillary Procedure Department of Ophthalmology Social History Tobacco Use Types Packs/Day Years Used Date Smoking Tobacco: Unknown [facility] Utilities Answer Date Recorded In the past 12 months has th e [employer], gas, oil, or water [employer] threatened to shut off services in your [...] living situation today? I have a [facility] place to live 07/25/2023 Sex [...]
--- OUTSIDE RECORDS SUMMARY | 2023-08-30 10:01 | XMS_ITS ---
Author Organization [facility] Address [address] [place] [address] Care Team Providers Care Procedures Nurse Name Role Phone Unavailable Unavailable Unavailable Surgery Details Not on file Complications Check Surgery Details section. Procedure Estimated Blood Loss Check Surgery Details section. Procedure Findings Check Surgery Details section. Procedure Specimens Taken Check Surgery Details section.
--- OUTSIDE RECORDS SUMMARY | 2023-08-30 10:01 | XMS_ITS | Referral Summary ---
Author Organization [facility] Address [address] [place] [address] Care Team Providers Care Biodiesel Plant Manager Name Role Phone Unavailable Primary Care Provider Unavailabl e Source Comments Patient records contain information from all sites at [facility]. For routine questions regarding patient records, call [phone] during business hours, M-F 8:00 AM - 5:00 PM Central Time. Record requests for emergency care only can be directed to [phone] at any time.[facility] Encounters Date Type Department Care Team Description 08/01/2023 Clinical Communication Division of oil heater installer in [place], [place] [address] [place] [address] Prescheduling, Provider 07/31/2023 Clinical Communication Department of Ophthalmology in [place], [place] [address] [place] [address] Rachel Collins M.D., Ph.D. 07/30/2023 3:20 PM CDT Ancillary Procedure Department of Ophthalmology 07/30/2023 Clinical Communication Department of Ophthalmology in [place], [place] [address] [place] [phone] Provider, Unknown Appt Request 07/30/2023 1:25 PM CDT Ancillary Procedure Department of Ophthalmology 07/30/2023 Ancillary Procedure Department of Ophthalmology 07/30/2023 Episode Changes Department of Ophthalmology in [place], [place] [address] [place] [address] Giana Mancilla 07/30/2023 10:45 AM CDT Ancillary Procedure Department of Ophthalmology 07/30/2023 9:40 AM CDT Ancillary Procedure Department of Ophthalmology 07/30/2023 7:50 AM CDT - 07/30/2023 11:59 PM CDT Hospital Encounter Department of Laboratory Medicine and Pathology, [facility], in [place], [place] [address] [place] [address] Red Gallego M.D. Loss Visual; Defect Visual Field Discharge Disposition: Home or Self Care 07/30/2023 2:10 PM CDT Ancillary Procedure Department of Ophthalmology in [place], [place] [address] [place] [phone] Red Gallego M.D. 07/30/2023 12:00 PM CDT Ancillary Procedure Department of Ophthalmology in [place], [place] [address] [place] [phone] Red Gallego M.D. Neuropathy Optic 07/30/2023 9:30 AM CDT Ancillary Procedure Department of Ophthalmology in [place], [place] [address] [place] [address] Red Gallego M.D. Neuropathy Optic 07/30/2023 11:15 AM CDT Ancillary Procedure Department of Ophthalmology in [place], [place] [address] [place] [address] Red Gallego M.D. Neuropathy Optic 07/30/2023 3:15 PM CDT Comprehensive Visit Department of Ophthalmology in [place], [place] [address] [place] [address] Red Gallego M.D. Ischemia Retina (Primary Dx); Arteritis Temporal (HCC); Glaucoma Neovascular; Intraocular Lens Implant Status Post; Occlusion Carotid Artery Left 07/29/2023 1:27 PM CDT - 07/29/2023 11:59 PM CDT Hospital Encounter Department of Radiology, [facility], in [place], [place] [address] [place] [phone] Red Gallego M.D. Loss Visual Discharge Disposition: Home or Self Care 07/25/2023 Orders Only Department of Ophthalmology in [place], [place] [address] [place] [address] Red Gallego M.D. Loss Visual (Primary Dx); Defect Visual Field 07/25/2023 Clinical Communication Department of Ophthalmology in [place], [place] [address] [place] [address] Red Gallego M.D. Appt Request 07/24/2023 2:40 PM CDT - 07/24/2023 11:59 PM CDT Hospital Encounter Department of Radiology, [facility] in [place], [place] [address] [place] [address] Red Gallego M.D. Neuropathy Optic Discharge Disposition: Home or Self Care 07/03/2023 Orders Only Department of Ophthalmology in [place], [place] [address] [place] [address] Red Gallego M.D. from Last 3 Months Allergies Active Allergy [...] Packs/Day Years Used Date Smoking Tobacco: Unknown [facility] Utilities Answer Date Recorded In the past 12 months has [employer], [employer], or water [employer] threatened to shut off services in your [...] living situation today? I have a [facility] place to live 07/25/2023 Sex and [...] on file Medical Devices Implanted Type Area Eligibility Counselor Device Identifier Shelf Expiration Date Model / Serial / Lot J J Sig Patella Oval 41 - Briones [id number] Implanted:Qty: 1 on 10/23/2011 Knee Implant Other/Legacy - See Implant Description [employer] Description:Device Manufactu rer - [employer]. Body Location - Other. Left. Device Status Text - [id number] [id number]. Depuy-Insert Stabilized Sz 5 12.5mm - Briones [id number] Implanted:Qty: 1 on 10/23/2011 Knee Implant Other/Legacy - See Implant Description [employer] Description:Device Manufactu rer - J [employer] J [employer]. Body Location - Other. Left. Device Status Text - KNEE [id number]. Depuy-Tib Tray Mod Cement Cocr Sz5 - Briones [id number] Implanted:Qty: 1 on 10/23/2011 Knee Implant Other/Legacy - See Implant Description [employer] Description:Device Manufactu rer - J [employer] J [employer]o. Body Location - Other. Left. Device Status Text - [id number] [id number]. Sigma Post Stab.W Lug Fem Sz 6 Lt - Briones [id number] Implanted:Qty: 1 on 10/23/2011 Knee Implant Other/Legacy - See Implant Description [employer] Description:Device Manufactu rer - [employer]. Body Location - Other. Left. Device Status Text - [id number] [id number]. Cement Bone Large - Briones [id number] Implanted:Qty: 2 on 10/23/2011 Misc Other [place] Description:Device Manufactu rer - [place] Am[employer]ilis.. Device Status Text - [id number]. Procedures [...] METABOLIC PANEL, S/P Routine 03/27/2023 3:[address] ABDOMEN PELVIS WITH IV CONTRAST RAD [...] OCT device used was [employer] . Notes [facility] - Patient would not allow us to complete exam. Managed to get most scans done on the right eye. No left eye scans. The interpretation report for this test can be found in the Testing section of the chart note dated 07/30/2023 Red Gallego M.D. OPHTH TOMOGRAPHY Performing Organization Address [facility] de Phone Number OPHTHALMOLOGY IMAGING EXAM * [...] Gallego M.D. OPHTH PHOTOGRAPHY Performing Organization Address [facility] de Phone Number OPHTHALMOLOGY IMAGING EXAM [...] OPHTH VISUAL FIEL D Performing Organization Address [facility] de Phone Number OPHTHALMOLOGY IMAGING EXAM * (ABNORMAL) Sedimentation Rate (07/30/2023 8:13 AM CDT) Sedimentation Rate, B 42(H) 3 - 28 mm/h 07/30/2023 10:11 AM CDT DTL Blood (Blood, Venous) 07/30/2023 8:13 AM CDT 07/30/2023 8:41 AM CDT Red Gallego M.D. LAB BLOOD ADD-ON [facility] [address] [place] [address], [facility] DTL [facility] [address] [place] [address] * (ABNORMAL) CBC with Differential, Blood (07/30/2023 8:13 AM CDT) Pathologist [facility] Hemoglobin 10.9(L) 13.2 - 16.6 g/dL 07/30/2023 [...] M.D. LAB BLOOD ADD-ON Performing Organization Address City/[facility] Co de Phone Number [facility] [address] [place], [place] [phone] [place] [address] [address] [place], [place] [phone] [place] [address] [address] [place] [address] * (ABNORMAL) CRP (C-Reactive Protein) (07/30/2023 8:13 AM CDT) C-Reactive Protein (CRP), S 33.6(H) <5.0 mg/L 07/30/2023 9:14 AM CDT DTL Blood (Blood, Venous) 07/30/2023 8:13 AM CDT 07/30/2023 8:52 AM CDT Red Gallego M.D. LAB BLOOD ADD-ON Performing Organization Address City/[facility]/ZIP Co de Phone Number [facility] [address] [place], [place] [address] [address] [place] [address] * Creatinine with Estimated GFR (07/30/2023 8:13 AM CDT) Creatinine 1.15 0.74 - 1.35 mg/dL 07/30/2023 9:14 AM CDT DTL Estimated GFR (eGFR) 66 >=60 mL/min/BSA 07/30/2023 9:14 AM CDT DTL Comment: Estimated GFR calculated using the 2021 CKD_EPI creatinine equation. Blood (Blood, Venous) 07/30/2023 8:13 AM CDT 07/30/2023 8:52 AM CDT Red Gallego M.D. LAB BLOOD ADD-ON [facility] [address] [place] [address], [facility] [address] [place] [address] * CT Head Neck Angiogram with IV [...] right maxillary sinusitis, active on chronic. Red D Chodnicki M.D. IMG CT PROCEDURES * MR Examination [...]
--- OUTSIDE RECORDS SUMMARY | 2023-08-30 10:01 | XMS_ITS | Encounter Summary ---
Author Organization [facility] Address [address] [place] [address] Care Team Providers Care Roller Skates Assembler Name Role Phone Unavailable Primary Care Provider Unavailabl e Encounter Details Date Type Department Care Team (Late st Contact Info) Description 07/30/2023 2:10 PM CDT Ancillary Procedure Department of Ophthalmology in [place], [place] [address] [place] [address] Red Gallego M.D. [address] [place] [phone] Social History Tobacco Use Types Packs/Day Years Used Date Smoking Tobacco: Unknown [facility] Utilities Answer Date Recorded In the past [...] your living situation today? [facility] place [facility] live 07/25/2023 Sex and [...]
--- OUTSIDE RECORDS SUMMARY | 2023-08-30 10:01 | XMS_ITS | Encounter Summary ---
Author Organization [facility] Address [address] [place] [address] Care Team Providers Care Dry House Attendant Name Role Phone Unavailable Primary Care Provider Unavailabl e Encounter Details Date Type Department Care Team (Late st Contact Info) Description 07/30/2023 3:20 PM CDT Ancillary Procedure Department of Ophthalmology Social History Tobacco Use Types Packs/Day Years Used Date Smoking Tobacco: Unknown [facility] Utilities Answer Date Recorded In the past 12 months has th e [employer], gas, oil, or water [email or web address] threatened to shut off services in your [...]
--- OUTSIDE RECORDS SUMMARY | 2023-08-30 10:01 | XMS_ITS | Encounter Summary ---
Author Organization [facility] Address [address] [place] [address] Care Team Providers Care Dungeon Master Name Role Phone Unavailable Primary Care Provider Unavailabl e Encounter Details Date Type Department Care Team (Late st Contact Info) Description 07/30/2023 9:40 AM CDT Ancillary Procedure Department of Ophthalmology Social History Tobacco Use Types Packs/Day Years Used Date Smoking Tobacco: Unknown [facility] Utilities Answer Date Recorded In the past 12 months has th e [employer], gas, oil, or water [employer] threatened to shut off services in your [...] living situation today? I have a [facility] place to live 07/25/2023 Sex and [...]
--- OUTSIDE RECORDS SUMMARY | 2023-08-30 10:01 | XMS_ITS | Encounter Summary ---
Author Organization [facility] Address [address] [place] [address] Care Team Providers Care Food And Beverage Manager Name Role Phone Unavailable Primary Care Provider Unavailabl e Reason for Visit * Reason Onset Date Comments Appt Request 07/30/2023 Encounter Details Date Type Department Care Team (Latest Contact Info) Description 07/30/2023 Clinical Communication Department of Ophthalmology in [place], [place] [address] [place] [address] Provider, Unknown Appt Request Social History Tobacco Use Types Packs/Day Years Used Date Smoking Tobacco: Unknown [facility] Utilities Answer Date Recorded In the [...] your living situation today? [facility] 07/25/2023 Sex [...]
--- OUTSIDE RECORDS SUMMARY | 2023-08-30 10:01 | XMS_ITS | Encounter Summary ---
Author Organization [facility] Address [address] [place] [address] Care Team Providers Care Leaf Coverer Name Role Phone Unavailable Primary Care Provider Unavailabl e Encounter Details Date Type Department Care Team (Latest Contact Info) Description 07/31/2023 Clinical Communication Department of Ophthalmology in [place], [place] [address] [place] [address] Rachel Collins M.D., Ph.D. [address] [place] [phone] Social History Tobacco Use Types Packs/Day Years Used Date Smoking Tobacco: Unknown [facility] Utilities Answer Date Recorded In the past 12 months has [facility] electric, gas, oil, or water company [...] your living situation today? I have a [facility] place to live 07/25/2023 Sex [...]
--- OUTSIDE RECORDS SUMMARY | 2023-08-30 10:01 | XMS_ITS | Encounter Summary ---
Author Organization [facility] Address [address] [place] [address] Care Team Providers Care Sharepoint Designer Developer Name Role Phone Unavailable Primary Care Provider Unavailabl e Encounter Details Date Type Department Care Team (Late st Contact Info) Description 07/30/2023 1:25 PM CDT Ancillary Procedure Department of Ophthalmology Social History Tobacco Use Types Packs/Day Years Used Date Smoking Tobacco: Unknown [facility] Utilities Answer Date Recorded In the past 12 months has th e [employer], gas, oil, or water [employer] threatened to shut off services in your [...] living situation today? I have a [facility] place to live 07/25/2023 Sex [...]
--- OUTSIDE RECORDS SUMMARY | 2023-08-30 10:01 | XMS_ITS | Encounter Summary ---
Author Organization [facility] Address [address] [place] [address] Care Team Providers Care .Net Architect Name Role Phone Unavailable Primary Care Provider Unavailabl e Encounter Details Date Type Department Care Team (Latest Contact Info) Description 07/30/2023 7:50 AM CDT - 07/30/2023 11:59 PM CDT Hospital Encounter Department of Laboratory Medicine and Pathology, [facility], in [place], [place] [address] [place] [address] Red Gallego M.D. [address] [place] [address] Loss Visual; Defect Visual Field Discharge Disposition: Home or Self Care Social History Tobacco Use Types Packs/Day Years Used Date Smoking Tobacco: Unknown [facility] Utilities Answer Date Recorded In the past 12 months has [facility] electric, gas, oil, or water company threatened [...] Ellipta 100-62.5-25 mcg inhaler 1 puff daily. predniSONE (DELTASONE) 20 mg tablet Take 3 tablets (60 mg total) by mouth daily. 90 tablet 07/30/2023 08/17/2023 documented as of this encounter Plan of [...] [facility]/ZIP Co de Phone Number [facility] [address] [facility] 200 [place], [place] [phone] [place] [address] [address] [place] [address] * (ABNORMAL) CRP (C-Reactive Protein) (07/30/2023 8:13 AM CDT) C-Reactive Protein (CRP), S 33.6(H) <5.0 mg/L 07/30/2023 9:14 AM CDT DTL Blood (Blood, Venous) 07/30/2023 8:13 AM CDT 07/30/2023 8:52 AM CDT Red Gallego M.D. LAB BLOOD ADD-ON Performing Organization Address City/[facility]/ZIP Co de Phone Number [facility] [address] [facility] 200 [place] [address] * (ABNORMAL) Sedimentation Rate (07/30/2023 8:13 AM CDT) Sedimentation Rate, B 42(H) 3 - 28 mm/h 07/30/2023 10:11 AM CDT DTL Blood (Blood, Venous) 07/30/2023 8:13 AM CDT 07/30/2023 8:41 AM CDT Red Gallego M.D. LAB BLOOD ADD-ON Performing Organization Address City/[facility]/ZIP Co de Phone Number [facility] 200 [place] [address], [facility]ly [facility] 200 [place] [address] * Creatinine with Estimated GFR (07/30/2023 8:13 [...] [facility]/ZIP Co de Phone Number [facility] 200 [place] [address], [facility] DTFormerly [facility] 200 [place] [address] documented in this encounter Visit Diagnoses Diagnosis Loss Visual Defect Visual Field documented in this encounter
--- OUTSIDE RECORDS SUMMARY | 2023-08-30 10:01 | XMS_ITS | Encounter Summary ---
Author Organization [facility] Address [address] [place] [address] Care Team Providers Care Senior Systems Software Engineer Name Role Phone Unavailable Primary Care Provider Unavailabl e Encounter Details Date Type Department Care Team (Latest Contact Info) Description 07/30/2023 12:00 PM CDT Ancillary Procedure Department of Ophthalmology in [place], [place] [address] [place] [address] Red Gallego M.D. [address] [place] [phone] Neuropathy Optic Social History Tobacco Use Types Packs/Day Years Used Date Smoking Tobacco: Unknown [facility] Utilities Answer Date Recorded In [...] your living situation today? I have a [facility] place to live 07/25/2023 Sex and Gender [...] OCT device used was [employer] . Notes [facility] - Patient would not allow us [...]
--- OUTSIDE RECORDS SUMMARY | 2023-08-30 10:02 | XMS_ITS | Encounter Summary ---
Author Organization [facility] Address [address] [place] [address] Care Team Providers Care Beauty Shop Manager Name Role Phone Unavailable Primary Care Provider Unavailabl e Reason for Referral * MRI/CAT/PET Scan (Routine) - Closed Specialty Diagnoses / Procedures Referred By Janeth phillips Referred To Contact Radiology Diagnoses Loss Visual Procedures CT Head Neck Angiogram with IV Contrast Red Gallego M.D. [address] [place] [phone] [facility] Referral ID Status Reason Start Date Expiration Date Visits Re quested Visits Authorized [id number] Closed 07/25/2023 07/24/2024 1 1 Reason for Visit * MRI/CAT/PET Scan (Routine) - Closed Specialty Diagnoses / Procedures Referred By Janeth phillips Referred To Contact Radiology Diagnoses Loss Visual Procedures CT Head Neck Angiogram with IV Contrast Red Gallego M.D. 200 [place] [address] [facility] Referral ID Status Reason Start Date Expiration Date Visits Re quested Visits Authorized [id number] Closed 07/25/2023 07/24/2024 1 1 Encounter Details Date Type Department Care Team (Latest Contact Info) Description 07/29/2023 1:27 PM CDT - 07/29/2023 11:59 PM CDT Hospital Encounter Department of Radiology, [facility], in [place], [place] [address] [place] [address] Red Gallego M.D. [address] [place] [address] Loss Visual Discharge Disposition: Home or Self Care Social History Tobacco Use Types Packs/Day Years Used Date Smoking Tobacco: Unknown [facility] Utilities Answer Date Recorded In the past [...] your living situation today? I have a [facility] place to live 07/25/2023 Sex and [...]
--- OUTSIDE RECORDS SUMMARY | 2023-08-30 10:02 | XMS_ITS | Encounter Summary ---
Author Organization [facility] Address [address] [place] [address] Care Team Providers Care Security Assessor Name Role Phone Unavailable Primary Care Provider Unavailabl e Encounter Details Date Type Department Care Team (Latest Contact Info) Description 07/30/2023 11:15 AM CDT Ancillary Procedure Department of Ophthalmology in [place], [place] [address] [place] [address] Red Gallego M.D. [address] [place] [phone] Neuropathy Optic Social History Tobacco Use Types [...] your living situation today? I have a [facility] place to live 07/25/2023 Sex [...]
--- OUTSIDE RECORDS SUMMARY | 2023-08-30 10:02 | XMS_ITS | Clinical Summary ---
Author Organization [employer] [facility] Address [place], [place] [address] Care Team Providers Care Manager Organizational Name Role Phone Marcio Gonzalez MD Primary Care Provider [phone] Allergies Active Allergy Reactions Criticality Noted Date [...] at bedtime. 90 Tablet 3 3 Active acetic acid 0.25% 0.25 % irrigation APPLY 5 MINUTE SOAK TO WOUND EVERY OTHER DAY AND NEEDED FOLLOWING WOUND CARE ORDERS. 3 Active ammonium lactate 12% topical (LACHYDRIN) 12 % lotion APPLY TO LEGS AND FEET ONCE DAILY. 3 Active apixaban (ELIQUIS) 5 mg tabletIndications: [...] BACK PAIN 30 Tablet 1 4 Active fluticasone rjk-aukvoudnssrm-r ilanterol (Trelegy Ellipta) 100-62.5-25 mcg inhalerIndications :Panlobular emphysema (HC) INHALE 1 PUFF BY MOUTH EVERY DAY 180 Each 4 Active fluticasone znw-iujiiiuscqza-e ilanterol (Trelegy Ellipta) 100-62.5-25 mcg inhalerIndications :Panlobular emphysema (HC) Inhale 1 Puff by mouth once daily. 180 Each 1 3 024 Discontinued Active Problems Problem Noted Date Diagnosed Date History of stroke 07/27/2023 Overview: left MCA territory ischemic stroke, pmh of HLD, tobacco use, morbid obesity, COPD, BRITNEY and chronic back pain who is following up in stroke clinic today. He [place] [facility] [place] with difficulty finding words and [...] Word Finding Difficulties Recommended follow up at [facility] [place]. Speech therapy, [...] Problem Noted Date Diagnosed Date Resolved Date meterman (current) use of anticoagulants 07/07/2009 09/21/2010 Overview: INR Goal Range: 1.8 - 2.5 Encounters Date Type Department Care Team Description 08/10/2023 Refill [facility] [address] [place] [address] Marcio Gonzalez MD Refill Request (Trelegy Ellipta) 08/08/2023 2:00 PM CDT Office Visit [facility] [address] [place] [address] [address] Marcio Gonzalez MD Hospital F/U (Pneumonia /[facility] 07/29 - 08/01/Patient reports doing better) 08/08/2023 Travel 07/30/2023 Orders Only [facility] Scanner 1 scan: (1-Ord) POP, XR CHEST 1V PORTABLE, 07/30/2023 07/27/2023 10:30 AM CDT Office Visit [facility] [address] [place] [address] [address] Marcio Gonzalez MD Medication Management (Tramadol follow up//Spouse has questions about atenolol - not a current medication) 07/27/2023 Travel 06/19/2023 Telephone [facility] [address] [place] [address] Dave Maya MD Refill Request (Diltiazem/) 06/17/2023 Telephone [facility] [address] [place] [address] Marcio Gonzalez MD Refill Request (Tramadol) from Last 3 Months Immunizations Name Administration Dates Next Due COVID-19 Vaccine Spikevax (M oderna 50mcg/0.5mL) 12YO+ [id number] Formula PF 01/17/2023 COVID-19 vaccine (Pfizer-BioNTech 30mcg/0.3mL) P F, MDV 06/22/2020,06/01/2020 Influenza, High-dose [...] Respiratory Rate 18 05/02/2023 10:5 7 AM TRAVEL MANAGER Oxygen Saturation 92% 08/08/2023 2:12 PM CDT Inhaled Oxygen Concentration - - Weight 134.9 kg (297 lb 4.8 oz) 024 10:38 AM CDT Height 185.4 cm (6' 1) 05/22/2023 9:53 AM TRAVEL MANAGER Body Mass Index 39.22 05/22/2023 9:53 AM TRAVEL MANAGER Plan of Treatment Health Maintenance Due Date [...] history exists Medical Devices Implanted Type Area Home Health Clinician Device Identifier Shelf Expiration Date Model / Serial / Lot Tissue Pericardium 0.8x8cm Phot[employer]ix Bovine - [id number] Implanted:Qty: 1 on 02/13/2022 by Kael Hernandez MD at [facility] Cv Implants Right: Groin [employer] 02/27/2022 PFP 0.8X8 / / [id number] Stent Aaa [id number] Excluder Ibc - [id number] Implanted:Qty: 1 on 02/13/2022 by Kael Hernandez MD at [facility] Right: Iliac Artery [employer] 2024 [id number] / [id number] / Stent Aaa [id number] Excluder Iic - [id number] Implanted:Qty: 1 on 02/13/2022 by Kael Hernandez MD at [facility] Right: Iliac Artery [employer] 04/20/2024 [id number] / [id number] / Procedures Procedure Name Priority Date/Time Associated [...] mandie Non-React mandie 02/09/2022 2:56 PM CDT [facility] Comment:Antibodies to HCV no t detected; does not exclude the possibility of exposure to HCV. Blood BLOOD SPECIMEN / Unknown Venipuncture / Unknown 02/08/2022 11:20 AM CDT 02/08/2022 11:27 AM CDT Marcio Gonzalez MD SEND OUTS [facility] [address] [place] [address], * CT CHEST SCREENING LOW DOSE WO [...] @11/02/2021 8:56:18 AM Pediatric and Body Radiology [email or web address] Narrative 11/02/2021 9:43 AM CDT For Patients: [...] Documents on File Type Date Recorded Patient Scrummaster Expl anation Treatment Guidelines 02/11/2022 * Full Code (Latest Code Status on File) Date Activated Date Inactivated Comments 02/13/2022 1:00 PM 02/14/2022 5:39 PM Question Answer Comments Code Status Discussion: Reviewed Preferences * Full Code Date Activated Date Inactivated Comments 02/13/2022 6:05 AM 02/13/2022 12:59 PM Question Answer Comments Code Status Discussion: Unable to Assess Preferences, Provider to review later Care Teams Manager Organizational Relationship Specialty Start Date End Date Marcio Gonzalez MD [address] [place] [address] PCP - General Family Practice 12/20/15
--- OUTSIDE RECORDS SUMMARY | 2023-08-30 10:02 | XMS_ITS | Encounter Summary ---
Author Organization [facility] Address [address] [place] [address] Care Team Providers Care Sterilisation Technician Name Role Phone Unavailable Primary Care Provider Unavailabl e Reason for Visit * MRI/CAT/PET Scan (Routine) - Closed Specialty Diagnoses / Procedures Referred By Janeth t Referred To Contact Radiology Diagnoses Neuropathy Optic Procedures MR Examination Not Performed MR Orbits without and with IV Contrast Red Gallego M.D. [address] [place] [phone] [facility] Referral ID Status Reason Start Date Expiration Date Visits Re quested Visits Authorized [id number] Closed 07/04/2023 07/03/2024 1 1 Encounter Details Date Type Department Care Team (Latest Contact Info) Description 07/24/2023 2:40 PM CDT - 07/24/2023 11:59 PM CDT Hospital Encounter Department of Radiology, [facility] in [place], [place] [address] [place] [address] Red Gallego M.D. [address] [place] [phone] Neuropathy Optic Discharge Disposition: Home or Self Care Social History Tobacco Use Types Packs/Day Years Used Date Smoking Tobacco: Unknown [facility] Utilities Answer Date Recorded In the [...] Phone number of accompanying adult wait in [facility] Does patient have an allergy to lorazepam [...] patient discomfort and claustrophobia. Red Gallego M.D. [facility] MRI PROCEDURE S * MR Examination Not [...]
--- OUTSIDE RECORDS SUMMARY | 2023-08-30 10:02 | XMS_ITS | Encounter Summary ---
Author Organization [facility] Address [address] [place] [address] Care Team Providers Care Materials Analyst Name Role Phone Unavailable Primary Care Provider Unavailabl e Reason for Visit * Reason Onset Date Comments Pre-visit Testing Orders 05/18/2023 Encounter Details Date Type Department Care Team (Latest Contact Info) Description 05/18/2023 Clinical Communication Department of Ophthalmology in [place], [place] [address] [place] [address] Red Gallego M.D. [address] [place] [address] Pre-visit Testing Orders Social History Tobacco Use [...] 1:41 PM CDT OCT device used was [employer] . Notes [facility] - Patient would not allow us to complete exam. Managed to get most scans done on the right eye. No left eye scans. The interpretation report for this test can be found in the Testing section of the chart note dated 07/30/2023 Red Gallego M.D. OPHTH TOMOGRAPHY Performing Organization Address [facility] de Phone Number OPHTHALMOLOGY IMAGING [...] Gallego M.D. OPHTH PHOTOGRAPHY Performing Organization Address [facility] Co de Phone Number OPHTHALMOLOGY IMAGING EXAM * Automated VF - Extended - OU - Both Eyes (07/30/2023 10:04 AM CDT) [facility] OPHTHALMOLOGY IMAGING EXAM - 07/30/2023 11:43 AM [...] Red Gallego M.D. 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
--- OUTSIDE RECORDS SUMMARY | 2023-08-30 10:02 | XMS_ITS | Encounter Summary ---
Author Organization [facility] Address [address] [place] [address] Care Team Providers Care Advertising Clerk Name Role Phone Unavailable Primary Care Provider Unavailabl e Encounter Details Date Type Department Care Team (Late st Contact Info) Description 07/03/2023 Orders Only Department of Ophthalmology in [place], [place] [address] [place] [address] Red Gallego M.D. [address] [place] [phone] Social History Tobacco Use Types Packs/Day Years Used Date Smoking Tobacco: Unknown [facility] Utilities Answer Date Recorded In the past 12 months has [facility] electric, gas, oil, or water [...] your living situation today? I have a [facility] place to live 07/25/2023 Sex and [...]
--- OUTSIDE RECORDS SUMMARY | 2023-08-30 10:02 | XMS_ITS | Encounter Summary ---
Author Organization [facility] Address [address] [place] [address] Care Team Providers Care Traffic Analysis Technician Name Role Phone Unavailable Primary Care Provider Unavailabl e Reason for Referral * Outpatient (Routine) - Authorized Specialty Diagnoses / Procedures Referred By Janeth phillips Referred To Contact Ophthalmology Diagnoses Ischemia Retina Glaucoma Neovascular Jerica Gallego M.D. [address] [place] [address] [facility] Referral ID Status Reason Start Date Expiration Date V isits Requested Visits Authorized [id number] Authorized 07/30/2023 01/28/2025 1 1 Scheduling Instructions Please try to schedule within 1-2 weeks Reason for Visit * Reason Comments Decreased Visual Acuity * Appointment Request (Routine) - Closed Specialty Diagnoses / Procedures Referred By Janeth phillips Referred To Contact Ophthalmology Diagnoses Neuropathy Optic Ischemic Graciela Giron O.D. [address], [place] [address] Referral ID Status Reason Start Date Expiration Date Visits Re quested Visits Authorized [id number] Closed 04/27/2023 04/26/2024 1 1 Encounter Details Date Type Department Care Team (Latest Contact Info) Description 07/30/2023 3:15 PM CDT Comprehensive Visit Department of Ophthalmology in [place], [place] [address] [place] [phone] Jerica Gallego M.D. [address] [place] [address] Ischemia Retina (Primary Dx); Arteritis Temporal (HCC); Glaucoma Neovascular; Intraocular Lens Implant Status Post; Occlusion Carotid Artery Left Social History Tobacco Use Types Packs/Day Years Used Date Smoking Tobacco: Unknown [facility] Utilities Answer Date Recorded In the [...] your living situation today? I have a [facility] place to live 07/25/2023 Sex and Gender Information Value Date Recorded Sex Assigned at Male 07/25/2023 8:23 PM CDT Gender Identity Male 07/25/2023 8:23 PM CDT Sexual Orientation Straight 07/25/2023 8: 23 PM CDT documented as of this encounter Progress Notes * Jerica Gallego M.D. 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 Addendum 08/17/2023: Case reviewed with neuro-radiology. Overall thought that there was no anterograde blood flow to theleft ophthalmic artery. 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 Discussing with neuro-ophth service, GCA would be very unlikely. The elevated inflammatory markers were driving the recommendation for temporal artery biopsy. With the alternate explanation for elevated ESR/CRP with hispneumonia, I recommended not starting steroids and canceling the TAB. Called patient/ to discuss. 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 I also recommended evaluation with a vascular specialist. Records were previously forwarded to his local vascular surgeon and the patient will inquire if they can see him for his present condition. If not, I asked them to let me know and we can refer him for vascular evaluation here. HPI The patient was referred by Graciela [...] Outside testin03/27/23: 04/23/23: documented in this encounter Miscellaneous Notes * Addendum Note - Jerica Gallego M.D. 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
--- OUTSIDE RECORDS SUMMARY | 2023-08-30 10:02 | XMS_ITS | Encounter Summary ---
Author Organization [facility] Address [address] [place] [address] Care Team Providers Care Meeting Facilitator Name Role Phone Unavailable Primary Care Provider Unavailabl e Reason for Visit * Reason Onset Date Comments Appt Request 07/25/2023 Encounter Details Date Type Department Care Team (Latest Contact Info) Description 07/25/2023 Clinical Communication Department of Ophthalmology in [place], [place] [address] [place] [address] Red Gallego M.D. [address] [place] [phone] Appt Request Social History Tobacco Use Types Packs/Day Years Used Date Smoking Tobacco: Unknown [facility] Utilities Answer Date Recorded In [...] your living situation today? I have a [facility] place to live 07/25/2023 Sex [...]
--- OUTSIDE RECORDS SUMMARY | 2023-08-30 10:02 | XMS_ITS | Encounter Summary ---
Author Organization [facility] Address [address] [place] [address] Care Team Providers Care German Instructor Name Role Phone Unavailable Primary Care Provider Unavailabl e Reason for Referral * MRI/CAT/PET Scan (Routine) - Closed Specialty Diagnoses / Procedures Referred By Janeth t Referred To Contact Radiology Diagnoses Loss Visual Procedures CT Head Neck Angiogram with IV Contrast Red Gallego M.D. [address] [place] [phone] [facility] Referral ID Status Reason Start Date Expiration Date Visits Re quested Visits Authorized [id number] Closed 07/25/2023 07/24/2024 1 1 Encounter Details Date Type Department Care Team (Late st Contact Info) Description 07/25/2023 Orders Only Department of Ophthalmology in [place], [place] [address] [place] [phone] Red Gallego M.D. [address] [place] [phone] Loss Visual (Primary Dx); Defect Visual Field Social History Tobacco Use Types Packs/Day Years Used Date Smoking Tobacco: Unknown [facility] Utilities Answer Date Recorded In the [...] your living situation today? I have a [facility] place to live 07/25/2023 Sex [...] - 6.45 x10(9)/L 07/30/2023 9:29 AM CDT [facility] Lymphocytes 2.02 0.95 - 3.07 x10(9)/L 07/30/2023 9:29 AM CDT DTL Monocytes 1.60(H) 0.26 - 0.81 x10(9)/L 07/30/2023 9:29 AM CDT DTL Eosinophils 0.14 0.03 - 0.48 x10(9)/L 07/30/2023 9:29 AM CDT DTL Basophils 0.07 0.01 - 0.08 x10(9)/L 07/30/2023 9:29 AM CDT DTL Blood (Blood, Venous) 07/30/2023 8:13 AM CDT 07/30/2023 8:41 AM CDT Red Gallego M.D. LAB BLOOD ADD-ON [facility] [address] [place] [address], [facility] DTL [facility] [address] [place], [place] [phone] [place] [address] [place] [address] * (ABNORMAL) CRP (C-Reactive Protein) (07/30/2023 8:13 AM CDT) C-Reactive Protein (CRP), S 33.6(H) <5.0 mg/L 07/30/2023 9:14 AM CDT DTL Blood (Blood, Venous) 07/30/2023 8:13 AM CDT 07/30/2023 8:52 AM CDT Red Gallego M.D. LAB BLOOD ADD-ON [facility] [address] [place] [address] * (ABNORMAL) Sedimentation Rate (07/30/2023 8:13 AM CDT) Sedimentation Rate, B 42(H) 3 - 28 mm/h 07/30/2023 10:11 AM CDT DTL Blood (Blood, Venous) 07/30/2023 8:13 AM CDT 07/30/2023 8:41 AM CDT Red Gallego M.D. LAB BLOOD ADD-ON Performing Organization Address [facility] Co de Phone Number [facility] [address] [place] [address] * Creatinine with Estimated GFR (07/30/2023 8:13 AM CDT) Creatinine 1.15 0.74 - 1.35 mg/dL 07/30/2023 9:14 AM CDT DTL Estimated GFR (eGFR) 66 >=60 mL/min/BSA 07/30/2023 9:14 AM CDT DTL Comment: Estimated GFR calculated using the 2020 CKD_EPI creatinine equation. Blood (Blood, Venous) 07/30/2023 8:13 AM CDT 07/30/2023 8:52 AM CDT Red Gallego M.D. LAB BLOOD ADD-ON [facility] 200 [place] [address], [facility] DTL [facility] 200 [place] [address] * CT Head Neck Angiogram with IV Contrast (07/29/2023 2:33 PM CDT) Anatomical Region Laterality Modality Head and Neck, Neuroradiolog y RST LOS, Neuroradiology ARKassandra PERDOMO, Neuroradiology FLA LOS N/A Computed Tomography, Compute [...]
== END 2023-08-30 09:53 | disposition home or self-care (01) ==
LOC: WOUND 09:59
PROVIDERS: PCP Family Medicine; Visit Provider Nurse Practitioner Family
DX: I87.311 Chronic venous hypertension (idiopathic) with ulcer of right lower extremity (principal); L97.212 Non-pressure chronic ulcer of right calf with fat layer exposed; I89.0 Lymphedema, not elsewhere classified
CPT/HCPCS: 11042

== ENCOUNTER 2023-09-13 10:03 | Outpatient (CLI) | payer MEDICARE, BC, SELFPAY ==
--- OUTSIDE RECORDS SUMMARY | 2023-09-13 10:04 | XMS_ITS | Clinical Summary ---
Author Organization [facility] Address [address] [place] [address] Care Team Providers Care Cushion Builder Name Role Phone Unavailable Primary Care Provider Unavailabl e Source Comments Patient records contain information from all sites at [facility]. For routine questions regarding patient records, call [phone] during business hours, M-F 8:00 AM - 5:00 PM Central Time. Record requests for emergency care only can be directed to [phone] at any time.[facility] Allergies Active Allergy Reactions Criticality Noted Date [...] mg IV Once in imaging 07/25/2023 Active fluorescein 100 mg/mL (10 %) injection 500 mg (AK-FLUOR/FLUORESCEIN) 500 mg IV Once in imaging 09/11/2023 Active sodium chloride 0.9 % injection 3 mL 3 mL IV As needed 09/11/2023 Active Active Problems Problem Noted Date Diagnosed Date Arteritis Temporal 07/30/2023 Encounters Date Type Department Care Team Description 09/11/2023 Orders Only Department of Ophthalmology in [place], [place] [address] [place] [address] Anabel Lang C.O.A. Ischemia Retina (Primary Dx) 09/11/2023 Clinical Communication Department of Ophthalmology in [place], [place] [address] [place] [address] Rachel Collins M.D., Ph.D. 08/01/2023 Clinical Communication Division of gift wrapper in [place], [place] [address] [place] [address] Prescheduling, Provider 07/31/2023 Clinical Communication Department of Ophthalmology in [place], [place] [address] [place] [address] Rachel Collins M.D., Ph.D. 07/30/2023 3:20 PM CDT Ancillary Procedure Department of Ophthalmology 07/30/2023 3:15 PM CDT Comprehensive Visit Department of Ophthalmology in [place], [place] [address] [place] [address] Red Gallego M.D. Ischemia Retina (Primary Dx); Arteritis Temporal (HCC); Glaucoma Neovascular; Intraocular Lens Implant Status Post; Occlusion Carotid Artery Left 07/30/2023 2:10 PM CDT Ancillary Procedure Department of Ophthalmology in [place], [place] [address] [place] [address] Red Gallego M.D. 07/30/2023 1:25 PM CDT Ancillary Procedure Department of Ophthalmology 07/30/2023 12:00 PM CDT Ancillary Procedure Department of Ophthalmology in [place], [place] [address] [place] [phone] Red Gallego M.D. Neuropathy Optic 07/30/2023 11:15 AM CDT Ancillary Procedure Department of Ophthalmology in [place], [place] [address] [place] [address] Red Gallego M.D. Neuropathy Optic 07/30/2023 10:45 AM CDT Ancillary Procedure Department of Ophthalmology 07/30/2023 9:40 AM CDT Ancillary Procedure Department of Ophthalmology 07/30/2023 9:30 AM CDT Ancillary Procedure Department of Ophthalmology in [place], [place] [address] [place] [address] Red Gallego M.D. Neuropathy Optic 07/30/2023 7:50 AM CDT - 07/30/2023 11:59 PM CDT Hospital Encounter Department of Laboratory Medicine and Pathology, [facility], in [place], [place] [address] [place] [address] Red Gallego M.D. Loss Visual; Defect Visual Field Discharge Disposition: Home or Self Care 07/30/2023 Clinical Communication Department of Ophthalmology in [place], [place] [address] [place] [address] Provider, Unknown Appt Request 07/30/2023 Ancillary Procedure Department of Ophthalmology 07/30/2023 Episode Changes Department of Ophthalmology in [place], [place] [address] [place] [address] Giana Mancilla 07/29/2023 1:27 PM CDT - 07/29/2023 11:59 PM CDT [facility] [place] [place] [address] [place] [address] Red Gallego M.D. Loss Visual Discharge Disposition: Home or Self Care 07/25/2023 Orders Only Department of Ophthalmology in [place], [place] [address] [place] [address] Red Gallego M.D. Loss Visual (Primary Dx); Defect Visual Field 07/25/2023 Clinical Communication Department of Ophthalmology in [place], [place] [address] [place] [address] Red Gallego M.D. Appt Request 07/24/2023 2:40 PM CDT - 07/24/2023 11:59 PM CDT [facility] [place] [place] [address] [place] [address] Red Gallego M.D. Neuropathy Optic Discharge Disposition: Home or Self Care 07/03/2023 Orders Only Department of Ophthalmology in [place], [place] [address] [place] [address] Red Gallego M.D. from Last 3 Months Social History Tobacco Use Types Packs/Day Years Used Date Smoking Tobacco: Unknown [facility] Utilities Answer Date Recorded In the past 12 months has [employer], gas, oil, or water [employer] threatened to shut off services in your [...] your living situation today? I have a [facility] place to live 07/25/2023 Sex and [...] history exists Medical Devices Implanted Type Area Director Of Religious Life Device Identifier Shelf Expiration Date Model / Serial / Lot J J Sig Patella Oval 41 - Briones [id number] Implanted:Qty: 1 on 10/23/2011 Knee Implant Other/Legacy - See Implant Description [employer] Description:Device Manufactu rer - [employer]. Body Location - Other. Left. Device Status Text - [id number] [id number]. Depuy-Insert Stabilized Sz 5 12.5mm - Briones [id number] Implanted:Qty: 1 on 10/23/2011 Knee Implant Other/Legacy - See Implant Description [employer] Description:Device Manufactu rer - [employer]. Body Location - Other. Left. Device Status Text - KNEE [id number]. Depuy-Tib Tray Mod Cement Cocr Sz5 - Briones [id number] Implanted:Qty: 1 on 10/23/2011 Knee Implant Other/Legacy - See Implant Description [employer] Description:Device Manufactu rer - J [employer] J [employer]o. Body Location - Other. Left. Device Status Text - KNEE [id number]. Sigma Post Stab.W Lug Fem Sz 6 Lt - Briones [id number] Implanted:Qty: 1 on 10/23/2011 Knee Implant Other/Legacy - See Implant Description [employer] Description:Device Manufactu rer - [employer]. Body Location - Other. Left. Device Status Text - KNEE [id number]. Cement Bone Large - Briones [id number] Implanted:Qty: 2 on 10/23/2011 Misc Other [place] Description:Device Manufactu rer - [place] [employer].. Device Status Text - [id number]-[id number]. Procedures [...] METABOLIC PANEL, S/P Routine 03/27/2023 3:07 PM YARN WEIGHT AND STRENGTH TESTER CT ABDOMEN PELVIS WITH IV CONTRAST RAD [...] 1:41 PM CDT OCT device used was 480 [employer] . Notes MJC - Patient would not allow us to complete exam. Managed to get most scans done on the right eye. No left eye scans. The interpretation report for this test can be found in the Testing section of the chart note dated 07/30/2023 Red Gallego M.D. OPHTH TOMOGRAPHY Performing Organization Address [facility] de Phone Number OPHTHALMOLOGY IMAGING EXAM * [...] Gallego M.D. OPHTH PHOTOGRAPHY Performing Organization Address [facility] de Phone Number OPHTHALMOLOGY IMAGING EXAM [...] OPH VISUAL FIEL D Performing Organization Address [facility] de Phone Number OPHTHALMOLOGY IMAGING EXAM * (ABNORMAL) Sedimentation Rate (07/30/2023 8:13 AM CDT) Sedimentation Rate, B 42(H) 3 - 28 mm/h 07/30/2023 10:11 AM CDT DTL Blood (Blood, Venous) 07/30/2023 8:13 AM CDT 07/30/2023 8:41 AM CDT Red Gallego M.D. LAB BLOOD ADD-ON [facility] [address] [place] [address], [facility] DTL [facility] [address] [place] [address] * (ABNORMAL) CBC with Differential, Blood (07/30/2023 [...] M.D. LAB BLOOD ADD-ON Performing Organization Address City/[facility] Co de Phone Number [facility] [address] [place] [address] * (ABNORMAL) CRP (C-Reactive Protein) (07/30/2023 8:13 AM CDT) C-Reactive Protein (CRP), S 33.6(H) <5.0 mg/L 07/30/2023 9:14 AM CDT DTL Blood (Blood, Venous) 07/30/2023 8:13 AM CDT 07/30/2023 8:52 AM CDT Red Gallego M.D. LAB BLOOD ADD-ON Performing Organization Address [facility] Co de Phone Number [facility] [address] [place] [address] * Creatinine with Estimated GFR (07/30/2023 8:13 AM CDT) Creatinine 1.15 0.74 - 1.35 mg/dL 07/30/2023 9:14 AM CDT DTL Estimated GFR (eGFR) 66 >=60 mL/min/BSA 07/30/2023 9:14 AM CDT DTL Comment: Estimated GFR calculated using the 2020 CKD_EPI creatinine equation. Blood (Blood, Venous) 07/30/2023 8:13 AM CDT 07/30/2023 8:52 AM CDT Red Gallego M.D. LAB BLOOD ADD-ON [facility] [address] [place] [address], [place] DTL [facility] [address] [place] [address] * CT Head Neck Angiogram with IV [...] sinusitis, active on chronic. Red Gallego M.D. [facility] PROCEDURES * MR Examination Not Performed [...] patient discomfort and claustrophobia. Red Gallego M.D. IMSujey MRI PROCEDURE S from Last 3 Months or Most Recently Relevant to Health Maintenance
--- OUTSIDE RECORDS SUMMARY | 2023-09-13 10:05 | XMS_ITS | Encounter Summary ---
Author Organization [facility] Address [address] [place] [address] Care Team Providers Care Plisse Machine Operator Name Role Phone Unavailable Primary Care Provider Unavailabl e Reason for Visit * Reason Onset Date Comments Appt Request 07/30/2023 Encounter Details Date Type Department Care Team (Latest Contact Info) Description 07/30/2023 Clinical Communication Department of Ophthalmology in [place], [place] [address] [place] [address] Provider, Unknown Appt Request Social History Tobacco Use Types Packs/Day Years Used Date Smoking Tobacco: Unknown [facility] Utilities Answer Date Recorded In the past [...]
--- OUTSIDE RECORDS SUMMARY | 2023-09-13 10:05 | XMS_ITS | Encounter Summary ---
Author Organization [facility] Address [address] [place] [address] Care Team Providers Care Doughnut Icer Machine Name Role Phone Unavailable Primary Care Provider Unavailabl e Encounter Details Date Type Department Care Team (Late st Contact Info) Description 07/30/2023 Episode Changes Department of Ophthalmology in [place], [place] [address] [place] [address] Giana Mancilla Social History Tobacco Use Types Packs/Day Years Used Date Smoking Tobacco: Unknown [facility] Utilities Answer Date Recorded In the [...] living situation today? I have a [facility] place to live 07/25/2023 Sex and Gender [...]
--- OUTSIDE RECORDS SUMMARY | 2023-09-13 10:05 | XMS_ITS | Encounter Summary ---
Author Organization [facility] Address [address] [place] [address] Care Team Providers Care Tumbling Barrel Painter Name Role Phone Unavailable Primary Care Provider Unavailabl e Reason for Referral * Outpatient (Routine) - Authorized Specialty Diagnoses / Procedures Referred By Janeth phillips Referred To Contact Diagnoses Ischemia Retina Procedures Tamayo Retinal Photocoagulation - OS - Left Eye Rachel Collins M.D., Ph.D. [address] [place] [phone] [facility] Referral ID Status Reason Start Date Expiration Date V isits Requested Visits Authorized [id number] Authorized 09/11/2023 09/10/2024 1 1 * Outpatient (Routine) - Authorized Specialty Diagnoses / Procedures Referred By Janeth phillips Referred To Contact Diagnoses Ischemia Retina Procedures Intravitreal Injection Gonda Appt Order - OS - Left Eye Rachel Collins M.D., Ph.D. [address] [place] [phone] [facility] Referral ID Status Reason Start Date Expiration Date V isits Requested Visits Authorized [id number] Authorized 09/11/2023 09/10/2024 1 1 Encounter Details Date Type Department Care Team (Late st Contact Info) Description 09/11/2023 Orders Only Department of Ophthalmology in [place], [place] [address] [place] [address] Anabel Lang C.O.A. [address] [place] [address] Ischemia Retina (Primary Dx) Social History Tobacco Use Types Packs/Day Years Used Date Smoking Tobacco: Unknown [facility] Utilities Answer Date Recorded In [...] your living situation today? I have a [facility] place to live 07/25/2023 Sex and Gender Information Value Date Recorded Sex Assigned at Male 07/25/2023 8:23 PM CDT Gender Identity Male 07/25/2023 8:23 PM CDT Sexual Orientation Straight 07/25/2023 8: 23 PM CDT documented as of this encounter Plan of Treatment Scheduled Orders Name Type Priority Associated Diagnoses Order Schedule Fluorescein Angiography - OU - Both Eyes Ophthalmology Routine Ischemia Retina Expected: 09/11/2023, Expires: 12/11/2024 Intravitreal Injection Gonda Appt Order - OS - Left Eye Ophthalmology Routine Ischemia Retina 1 Occurrences starting 09/11/2023 until 12/11/2024 Tamayo Retinal Photocoagulation - OS - Left Eye Ophthalmology Routine Ischemia Retina Expected: 09/11/2023, Expires: 12/11/2024 documented as of this encounter Visit Diagnoses Diagnosis Ischemia Retina- Primary documented in this encounter
--- OUTSIDE RECORDS SUMMARY | 2023-09-13 10:05 | XMS_ITS | Encounter Summary ---
Author Organization [facility] Address [address] [place] [address] Care Team Providers Care Roping Machine Tender Name Role Phone Unavailable Primary Care Provider Unavailabl e Encounter Details Date Type Department Care Team (Late st Contact Info) Description 07/30/2023 Ancillary Procedure Department of Ophthalmology Social History Tobacco Use Types Packs/Day Years Used Date Smoking Tobacco: Unknown [facility] Utilities Answer Date Recorded In [...]
--- OUTSIDE RECORDS SUMMARY | 2023-09-13 10:05 | XMS_ITS | Referral Summary ---
Author Organization [facility] Address [address] [place] [address] Care Team Providers Care Senior Quality Engineer Name Role Phone Unavailable Primary Care Provider Unavailabl e Source Comments Patient records contain information from all sites at [facility]. For routine questions regarding patient records, call [phone] during business hours, M-F 8:00 AM - 5:00 PM Central Time. Record requests for emergency care only can be directed to [phone] at any time.[facility] Encounters Date Type Department Care Team Description 09/11/2023 Orders Only Department of Ophthalmology in [place], [place] [address] [place] [address] Anabel Lang C.O.A. Ischemia Retina (Primary Dx) 09/11/2023 Clinical Communication Department of Ophthalmology in [place], [place] [address] [place] [address] Rachel Collins M.D., Ph.D. 08/01/2023 Clinical Communication Division of shot bagger in [place], [place] [address] [place] [address] Prescheduling, Provider 07/31/2023 Clinical Communication Department of Ophthalmology in [place], [place] [address] [place] [phone] Rachel Collins M.D., Ph.D. 07/30/2023 3:20 PM CDT Ancillary Procedure Department of Ophthalmology 07/30/2023 Clinical Communication Department of Ophthalmology in [place], [place] [address] [place] [address] Provider, Unknown Appt Request 07/30/2023 1:25 PM CDT Ancillary Procedure Department of Ophthalmology 07/30/2023 Ancillary Procedure Department of Ophthalmology 07/30/2023 Episode Changes Department of Ophthalmology in [place], [place] [address] [place] [phone] Giana Mancilla Johnny 07/30/2023 10:45 AM CDT Ancillary Procedure Department of Ophthalmology 07/30/2023 9:40 AM CDT Ancillary Procedure Department of Ophthalmology 07/30/2023 7:50 AM CDT - 07/30/2023 11:59 PM CDT Hospital Encounter [facility] [place], [place] [address] [place] [phone] Red Gallego M.D. Loss Visual; Defect Visual Field Discharge Disposition: Home or Self Care 07/30/2023 2:10 PM CDT Ancillary Procedure Department of Ophthalmology in [address] [address] Red Gallego M.D. 07/30/2023 12:00 PM CDT Ancillary Procedure Department of Ophthalmology in [address] [address] Red Gallego M.D. Neuropathy Optic 07/30/2023 9:30 AM CDT Ancillary Procedure Department of Ophthalmology in [address] [address] Red Gallego M.D. Neuropathy Optic 07/30/2023 11:15 AM CDT Ancillary Procedure Department of Ophthalmology in [address] [address] Red Gallego M.D. Neuropathy Optic 07/30/2023 3:15 PM CDT Comprehensive Visit Department of Ophthalmology in [address] [address] Red Gallego M.D. Ischemia Retina (Primary Dx); Arteritis Temporal (HCC); Glaucoma Neovascular; Intraocular Lens Implant Status Post; Occlusion Carotid Artery Left 07/29/2023 1:27 PM CDT - 07/29/2023 11:59 PM CDT Hospital Encounter Department of Radiology, [facility], in [place], [place] [address] [place] [address] Red Gallego M.D. Loss Visual Discharge Disposition: Home or Self Care 07/25/2023 Orders Only Department of Ophthalmology in [place], [place] [address] [place] [address] Red Gallego M.D. Loss Visual (Primary Dx); Defect Visual Field 07/25/2023 Clinical Communication Department of Ophthalmology in [place], [place] [address] [place] [address] Red Gallego M.D. Appt Request 07/24/2023 2:40 PM CDT - 07/24/2023 11:59 PM CDT Hospital Encounter Department of Radiology, [facility] in [place], [place] [address] [place] [address] Red Gallego M.D. Neuropathy Optic Discharge Disposition: Home or Self Care 07/03/2023 Orders Only Department of Ophthalmology in [place], [place] [address] [place] [address] Red Gallego M.D. from Last 3 Months [...] Date Smoking Tobacco: Unknown [facility] Utilities Answer Date Recorded In the past 12 months has [employer], gas, oil, or water [employer] threatened to shut off services in your [...] your living situation today? I have a [facility] place to live 07/25/2023 Sex and Gender [...] on file Medical Devices Implanted Type Area Code Official Device Identifier Shelf Expiration Date Model / Serial / Lot J J Sig Patella Oval 41 - Briones [id number] Implanted:Qty: 1 on 10/23/2011 Knee Implant Other/Legacy - See Implant Description [employer] Description:Device Manufactu rer - [employer]. Body Location - Other. Left. Device Status Text - KNEE [id number]. Depuy-Insert Stabilized Sz 5 12.5mm - Briones [id number] Implanted:Qty: 1 on 10/23/2011 Knee Implant Other/Legacy - See Implant Description [employer] Description:Device Manufactu rer - [employer]. Body Location - Other. Left. Device Status Text - [id number] [id number]. Depuy-Tib Tray Mod Cement Cocr Sz5 - Briones [id number] Implanted:Qty: 1 on 10/23/2011 Knee Implant Other/Legacy - See Implant Description [employer] Description:Device Manufactu rer - [employer]. Body Location - Other. Left. Device Status Text - KNEE [id number]. Sigma Post Stab.W Lug Fem Sz 6 Lt - Briones [id number] Implanted:Qty: 1 on 10/23/2011 Knee Implant Other/Legacy - See Implant Description [employer] Description:Device Manufactu rer - [employer]. Body Location - Other. Left. Device Status Text - KNEE [id number]. Cement Bone Large - Briones [id number] Implanted:Qty: 2 on 10/23/2011 Misc Other [place] Description:Device Manufactu rer - [employer]ar[employer].. Device Status Text - [id number]. Procedures [...] METABOLIC PANEL, S/P Routine 03/27/2023 3:[address] ABDOMEN PELVIS WITH IV CONTRAST RAD [...] RAD IMAGI NG PROCEDURES Performing Organization Address [facility] de Phone Number IIMS NA * Optical [...] Performing Organization Address [facility] de Phone Number OPHTHALMOLOGY IMAGING EXAM * [...] Performing Organization Address [facility] de Phone Number OPHTHALMOLOGY IMAGING EXAM * Automated VF - Extended - OU - Both Eyes (07/30/2023 10:04 AM CDT) [facility] OPHTHALMOLOGY IMAGING EXAM - 07/30/2023 11:43 AM [...] OPHTH VISUAL FIEL D Performing Organization Address City/[facility]/ZIP Co de Phone Number OPHTHALMOLOGY IMAGING EXAM * (ABNORMAL) Sedimentation Rate (07/30/2023 8:13 AM CDT) Pathologist [facility] Sedimentation Rate, B 42(H) 3 - 28 mm/h 07/30/2023 10:11 AM CDT DTL Blood (Blood, Venous) 07/30/2023 8:13 AM CDT 07/30/2023 8:41 AM CDT Red Gallego M.D. LAB BLOOD ADD-ON Performing Organization Address [facility] Co de Phone Number [facility] [address] [facility] 200 [place] [address] * (ABNORMAL) CBC with Differential, Blood (07/30/2023 [...] CDT Red Gallego M.D. LAB BLOOD ADD-ON [facility] 200 [place] [address], [facility] [address] [place] [address] [facility] 200 [place] [address] * (ABNORMAL) CRP (C-Reactive Protein) (07/30/2023 8:13 AM CDT) C-Reactive Protein (CRP), S 33.6(H) <5.0 mg/L 07/30/2023 9:14 AM CDT DTL Blood (Blood, Venous) 07/30/2023 8:13 AM CDT 07/30/2023 8:52 AM CDT Red Gallego M.D. LAB BLOOD ADD-ON Performing Organization Address [facility] Co de Phone Number [facility] 200 [place] [address], [facility] 200 [place] [address] * Creatinine with Estimated GFR (07/30/2023 8:13 AM CDT) Creatinine 1.15 0.74 - 1.35 mg/dL 07/30/2023 9:14 AM CDT DTL Estimated GFR (eGFR) 66 >=60 mL/min/BSA 07/30/2023 9:14 AM CDT DT Comment: Estimated GFR calculated using the 2020 CKD_EPI creatinine equation. Blood (Blood, Venous) 07/30/2023 8:13 AM CDT 07/30/2023 8:52 AM CDT Red Gallego M.D. LAB BLOOD ADD-ON Performing Organization Address [facility] Co de Phone Number [facility] 200 [place], [place] [address] 200 [place] [address] * CT Head Neck Angiogram with IV Contrast (07/29/2023 2:33 PM CDT) Anatomical Region Laterality Modality Head and Neck, Neuroradiolog y RST LOS, Neuroradiology [facility], Neuroradiology [place] LOS N/A Computed Tomography, Compute [...]
--- OUTSIDE RECORDS SUMMARY | 2023-09-13 10:05 | XMS_ITS | Encounter Summary ---
Author Organization [facility] Address [address] [place] [address] Care Team Providers Care Cigarette Making Machine Catcher Name Role Phone Unavailable Primary Care Provider Unavailabl e Encounter Details Date Type Department Care Team (Latest Contact Info) Description 07/30/2023 11:15 AM CDT Ancillary Procedure Department of Ophthalmology in [place], [place] [address] [place] [address] Red Gallego M.D. [address] [place] [phone] Neuropathy Optic Social History Tobacco Use Types Packs/Day Years Used Date Smoking Tobacco: Unknown [facility] Utilities Answer Date Recorded In [...] your living situation today? I have a [facility] place to live 07/25/2023 Sex and Gender [...]
--- OUTSIDE RECORDS SUMMARY | 2023-09-13 10:05 | XMS_ITS | Encounter Summary ---
Author Organization [facility] Address [address] [place] [address] Care Team Providers Care Crimp Setter Name Role Phone Unavailable Primary Care Provider Unavailabl e Reason for Referral * MRI/CAT/PET Scan (Routine) - Closed Specialty Diagnoses / Procedures Referred By Janeth phillips Referred To Contact Radiology Diagnoses Loss Visual Procedures CT Head Neck Angiogram with IV Contrast Red Gallego M.D. [address] [place] [phone] [facility] Referral ID Status Reason Start Date Expiration Date Visits Re quested Visits Authorized [id number] Closed 07/25/2023 07/24/2024 1 1 Reason for Visit * MRI/CAT/PET Scan (Routine) - Closed Specialty Diagnoses / Procedures Referred By Janeth phillips Referred To Contact Radiology Diagnoses Loss Visual Procedures CT Head Neck Angiogram with IV Contrast Red Gallego M.D. 200 [place] [address] [facility] Referral ID Status Reason Start Date Expiration Date Visits Re quested Visits Authorized [id number] Closed 07/25/2023 07/24/2024 1 1 Encounter Details Date Type Department Care Team (Latest Contact Info) Description 07/29/2023 1:27 PM CDT - 07/29/2023 11:59 PM CDT Hospital Encounter Department of Radiology, [facility], in [place], [place] [address] [place] [address] Red Gallego M.D. [address] [place] [address] Loss Visual Discharge Disposition: Home or Self Care Social History Tobacco Use Types Packs/Day Years Used Date Smoking Tobacco: Unknown [facility] Utilities Answer Date Recorded In the [...] your living situation today? I have a [facility] place to live 07/25/2023 Sex and Gender [...]
--- OUTSIDE RECORDS SUMMARY | 2023-09-13 10:05 | XMS_ITS | Encounter Summary ---
Author Organization [facility] Address [address] [place] [address] Care Team Providers Care Batch Operator Name Role Phone Unavailable Primary Care Provider Unavailabl e Encounter Details Date Type Department Care Team (Late st Contact Info) Description 07/30/2023 1:25 PM CDT Ancillary Procedure Department of Ophthalmology Social History Tobacco Use Types Packs/Day Years Used Date Smoking Tobacco: Unknown [facility] Utilities Answer Date Recorded In the past 12 months has th e [employer], gas, oil, or water [employer] threatened to shut off services in your [...] living situation today? I have a [facility] place to live 07/25/2023 Sex [...]
--- OUTSIDE RECORDS SUMMARY | 2023-09-13 10:05 | XMS_ITS | Encounter Summary ---
Author Organization [facility] Address [address] [place] [address] Care Team Providers Care Test Deck Supervisor Name Role Phone Unavailable Primary Care Provider Unavailabl e Encounter Details Date Type Department Care Team (Latest Contact Info) Description 09/11/2023 Clinical Communication Department of Ophthalmology in [place], [place] [address] [place] [address] Rcahel Collins M.D., Ph.D. [address] [place] [phone] Social History Tobacco Use Types Packs/Day Years Used Date Smoking Tobacco: Unknown [facility] Utilities Answer Date Recorded In the past 12 months has [facility] electric, gas, oil, or water company threatened [...] your living situation today? I have a [facility] place to live 07/25/2023 Sex and Gender [...]
--- OUTSIDE RECORDS SUMMARY | 2023-09-13 10:05 | XMS_ITS ---
Author Organization [facility] Address [address] [place] [address] Care Team Providers Care Machine Stripper Name Role Phone Unavailable Unavailable Unavailable Surgery Details Not on file Complications Check Surgery Details section. Procedure Estimated Blood Loss Check Surgery Details section. Procedure Findings Check Surgery Details section. Procedure Specimens Taken Check Surgery Details section.
--- OUTSIDE RECORDS SUMMARY | 2023-09-13 10:05 | XMS_ITS | Encounter Summary ---
Author Organization [facility] Address [address] [place] [address] Care Team Providers Care Ct Mri Technologist Name Role Phone Unavailable Primary Care Provider Unavailabl e Encounter Details Date Type Department Care Team (Late st Contact Info) Description 07/30/2023 3:20 PM CDT Ancillary Procedure Department of Ophthalmology Social History Tobacco Use Types Packs/Day Years Used Date Smoking Tobacco: Unknown [facility] Utilities Answer Date Recorded In the past 12 months has th e [employer], gas, oil, or water [employer] threatened to shut off services in your [...]
--- OUTSIDE RECORDS SUMMARY | 2023-09-13 10:05 | XMS_ITS | Encounter Summary ---
Author Organization [facility] Address [address] [place] [address] Care Team Providers Care Candy Maker Name Role Phone Unavailable Primary Care Provider Unavailabl e Reason for Referral * Outpatient (Routine) - Authorized Specialty Diagnoses / Procedures Referred By Janeth phillips Referred To Contact Ophthalmology Diagnoses Ischemia Retina Glaucoma Neovascular Jerica Gallego M.D. [address] [place] [address] [facility] Referral ID Status Reason Start Date Expiration Date V isits Requested Visits Authorized [id number] Authorized 07/30/2023 01/28/2025 1 1 Scheduling Instructions Please try to schedule within 1-2 weeks Reason for Visit * Reason Comments Decreased Visual Acuity * Appointment Request (Routine) - Closed Specialty Diagnoses / Procedures Referred By Janeth phillips Referred To Contact Ophthalmology Diagnoses Neuropathy Optic Ischemic Graciela Giron O.D. [address], [place] [address] Referral ID Status Reason Start Date Expiration Date Visits Re quested Visits Authorized [id number] Closed 04/27/2023 04/26/2024 1 1 Encounter Details Date Type Department Care Team (Latest Contact Info) Description 07/30/2023 3:15 PM CDT Comprehensive Visit Department of Ophthalmology in [place], [place] [address] [place] [phone] Jerica Gallego M.D. [address] [place] [address] Ischemia Retina (Primary Dx); Arteritis Temporal (HCC); Glaucoma Neovascular; Intraocular Lens Implant Status Post; Occlusion Carotid Artery Left Social History Tobacco Use Types Packs/Day Years Used Date Smoking Tobacco: Unknown [facility] Utilities Answer Date Recorded In [...] your living situation today? I have a [facility] place to live 07/25/2023 Sex and [...] the patient/ to reschedule the visit with [facility] for biopsy when they know when the [...]
--- OUTSIDE RECORDS SUMMARY | 2023-09-13 10:05 | XMS_ITS | Encounter Summary ---
Author Organization [facility] Address [address] [place] [address] Care Team Providers Care Measurement Department Chief Clerk Name Role Phone Unavailable Primary Care Provider Unavailabl e Encounter Details Date Type Department Care Team (Latest Contact Info) Description 07/30/2023 12:00 PM CDT Ancillary Procedure Department of Ophthalmology in [place], [place] [address] [place] [address] Red Gallego M.D. [address] [place] [phone] Neuropathy Optic Social History Tobacco Use Types Packs/Day Years Used Date Smoking Tobacco: Unknown [facility] Utilities Answer Date Recorded In the [...] your living situation today? I have a [facility] place to live 07/25/2023 Sex and Gender [...] OCT device used was [employer] . Notes [facility] - Patient would not allow us to [...]
--- OUTSIDE RECORDS SUMMARY | 2023-09-13 10:05 | XMS_ITS | Encounter Summary ---
Author Organization [facility] Address [address] [place] [address] Care Team Providers Care Assistant Designer Name Role Phone Unavailable Primary Care Provider Unavailabl e Reason for Visit * MRI/CAT/PET Scan (Routine) - Closed Specialty Diagnoses / Procedures Referred By Janeth t Referred To Contact Radiology Diagnoses Neuropathy Optic Procedures MR Examination Not Performed MR Orbits without and with IV Contrast Rde Gallego M.D. [address] [place] [phone] [facility] Referral ID Status Reason Start Date Expiration Date Visits Re quested Visits Authorized [id number] Closed 07/04/2023 07/03/2024 1 1 Encounter Details Date Type Department Care Team (Latest Contact Info) Description 07/24/2023 2:40 PM CDT - 07/24/2023 11:59 PM CDT Hospital Encounter Department of Radiology, [facility] in [place], [place] [address] [place] [address] Red Gallego M.D. [address] [place] [phone] Neuropathy Optic Discharge Disposition: Home or Self Care Social History Tobacco Use Types Packs/Day Years Used Date Smoking Tobacco: Unknown [facility] Utilities Answer Date Recorded [...] your living situation today? I have a [facility] place to live 07/25/2023 Sex and Gender [...] Phone number of accompanying adult wait in [facility] Does patient have an allergy to [...] patient discomfort and claustrophobia. Red Gallego M.D. [facility] MRI PROCEDURE S * MR Examination Not [...]
--- OUTSIDE RECORDS SUMMARY | 2023-09-13 10:05 | XMS_ITS | Encounter Summary ---
Author Organization [facility] Address [address] [place] [address] Care Team Providers Care Software Programmer Name Role Phone Unavailable Primary Care Provider Unavailabl e Encounter Details Date Type Department Care Team (Latest Contact Info) Description 07/30/2023 7:50 AM CDT - 07/30/2023 11:59 PM CDT Hospital Encounter Department of Laboratory Medicine and Pathology, [facility], in [place], [place] [address] [place] [address] Red Gallego M.D. [address] [place] [address] Loss Visual; Defect Visual Field Discharge Disposition: Home or Self Care Social History Tobacco Use Types Packs/Day Years Used Date Smoking Tobacco: Unknown [facility] Utilities Answer Date Recorded In the [...] M.D. LAB BLOOD ADD-ON Performing Organization Address City/[facility]/ZIP Co de Phone Number [facility] [address] [facility] 200 [place], [place] [phone] [place] [address] [address] [place] [address] * (ABNORMAL) CRP (C-Reactive Protein) (07/30/2023 8:13 AM CDT) C-Reactive Protein (CRP), S 33.6(H) <5.0 mg/L 07/30/2023 9:14 AM CDT DTL Blood (Blood, Venous) 07/30/2023 8:13 AM CDT 07/30/2023 8:52 AM CDT Red Gallego M.D. LAB BLOOD ADD-ON Performing Organization Address City/[facility]/ZIP Co de Phone Number [facility] [address] [facility] 200 [place] [address] * (ABNORMAL) Sedimentation Rate (07/30/2023 8:13 AM CDT) Sedimentation Rate, B 42(H) 3 - 28 mm/h 07/30/2023 10:11 AM CDT DTL Blood (Blood, Venous) 07/30/2023 8:13 AM CDT 07/30/2023 8:41 AM CDT Red Gallego M.D. LAB BLOOD ADD-ON Performing Organization Address City/[facility]/ZIP Co de Phone Number [facility] [address] [place] [address], [facility] [address] [place] [address] * Creatinine with Estimated GFR (07/30/2023 8:13 AM CDT) Creatinine 1.15 0.74 - 1.35 mg/dL 07/30/2023 9:14 AM CDT DTL Estimated GFR (eGFR) 66 >=60 mL/min/BSA 07/30/2023 9:14 AM CDT DTL Comment: Estimated GFR calculated using the 2020 CKD_EPI creatinine equation. Blood (Blood, Venous) 07/30/2023 8:13 AM CDT 07/30/2023 8:52 AM CDT Red Gallego M.D. LAB BLOOD ADD-ON Performing Organization Address City/[facility]/ZIP Co de Phone Number [facility] [address] [place] [address], [facility] [address] [place] [address] documented in this encounter Visit Diagnoses Diagnosis Loss Visual Defect Visual Field documented in this encounter
--- OUTSIDE RECORDS SUMMARY | 2023-09-13 10:05 | XMS_ITS | Encounter Summary ---
Author Organization [facility] Address [address] [place] [address] Care Team Providers Care Dirt Supervisor Name Role Phone Unavailable Primary Care Provider Unavailabl e Encounter Details Date Type Department Care Team (Late st Contact Info) Description 07/30/2023 9:40 AM CDT Ancillary Procedure Department of Ophthalmology Social History Tobacco Use Types Packs/Day Years Used Date Smoking Tobacco: Unknown [facility] Utilities Answer Date Recorded In the past 12 months has th e [employer], gas, oil, or water [facility] threatened to shut off services in your [...] living situation today? I have a [facility] place to live 07/25/2023 [...]
--- OUTSIDE RECORDS SUMMARY | 2023-09-13 10:05 | XMS_ITS | Encounter Summary ---
Author Organization [facility] Address [address] [place] [address] Care Team Providers Care Computer Numerical Control Machinist Name Role Phone Unavailable Primary Care Provider Unavailabl e Encounter Details Date Type Department Care Team (Latest Contact Info) Description 07/31/2023 Clinical Communication Department of Ophthalmology in [place], [place] [address] [place] [address] Rachel Collins M.D., Ph.D. [address] [place] [phone] Social History Tobacco Use Types Packs/Day Years Used Date Smoking Tobacco: Unknown [facility] Utilities Answer Date Recorded In the past 12 months has [facility] electric, gas, oil, or water company [...] your living situation today? I have a [facility] place to live 07/25/2023 Sex [...]
--- OUTSIDE RECORDS SUMMARY | 2023-09-13 10:05 | XMS_ITS | Encounter Summary ---
Author Organization [facility] Address [address] [place] [address] Care Team Providers Care Rangelands Conservation Laborer Name Role Phone Unavailable Primary Care Provider Unavailabl e Reason for Visit * Reason Onset Date Comments Appt Request 07/25/2023 Encounter Details Date Type Department Care Team (Latest Contact Info) Description 07/25/2023 Clinical Communication Department of Ophthalmology in [place], [place] [address] [place] [address] Red Gallego M.D. [address] [place] [phone] Appt Request Social History Tobacco Use Types Packs/Day Years Used Date Smoking Tobacco: Unknown [facility] Utilities Answer Date Recorded In the past [...] your living situation today? I have a [facility] place to live 07/25/2023 Sex and [...]
--- OUTSIDE RECORDS SUMMARY | 2023-09-13 10:05 | XMS_ITS | Encounter Summary ---
Author Organization [facility] Address [address] [place] [address] Care Team Providers Care Braided Band Assembler Name Role Phone Unavailable Primary Care Provider Unavailabl e Reason for Referral * MRI/CAT/PET Scan (Routine) - Closed Specialty Diagnoses / Procedures Referred By Janeth t Referred To Contact Radiology Diagnoses Loss Visual Procedures CT Head Neck Angiogram with IV Contrast Red Gallego M.D. [address] [place] [phone] [facility] Referral ID Status Reason Start Date Expiration Date Visits Re quested Visits Authorized [id number] Closed 07/25/2023 07/24/2024 1 1 Encounter Details Date Type Department Care Team (Late st Contact Info) Description 07/25/2023 Orders Only Department of Ophthalmology in [place], [place] [address] [place] [phone] Red Gallego M.D. [address] [place] [phone] Loss Visual (Primary Dx); Defect Visual Field [...] your living situation today? I have a [facility] place to live 07/25/2023 Sex and [...] - 6.45 x10(9)/L 07/30/2023 9:29 AM CDT [facility] Lymphocytes 2.02 0.95 - 3.07 x10(9)/L 07/30/2023 9:29 AM CDT DTL Monocytes 1.60(H) 0.26 - 0.81 x10(9)/L 07/30/2023 9:29 AM CDT DTL Eosinophils 0.14 0.03 - 0.48 x10(9)/L 07/30/2023 9:29 AM CDT DTL Basophils 0.07 0.01 - 0.08 x10(9)/L 07/30/2023 9:29 AM CDT DTL Blood (Blood, Venous) 07/30/2023 8:13 AM CDT 07/30/2023 8:41 AM CDT Red Gallego M.D. LAB BLOOD ADD-ON [facility] [address] [place] [address], [facility] DTL [facility] [address] [place], [place] [phone] [place] [address] [place] [address] * (ABNORMAL) CRP (C-Reactive Protein) (07/30/2023 8:13 AM CDT) C-Reactive Protein (CRP), S 33.6(H) <5.0 mg/L 07/30/2023 9:14 AM CDT DTL Blood (Blood, Venous) 07/30/2023 8:13 AM CDT 07/30/2023 8:52 AM CDT Red Gallego M.D. LAB BLOOD ADD-ON [facility] [address] [place] [address] * (ABNORMAL) Sedimentation Rate (07/30/2023 8:13 AM CDT) Sedimentation Rate, B 42(H) 3 - 28 mm/h 07/30/2023 10:11 AM CDT DTL Blood (Blood, Venous) 07/30/2023 8:13 AM CDT 07/30/2023 8:41 AM CDT Red Gallego M.D. LAB BLOOD ADD-ON Performing Organization Address [facility] Co de Phone Number [facility] [address] [place] [address] * Creatinine with Estimated GFR (07/30/2023 8:13 AM CDT) Creatinine 1.15 0.74 - 1.35 mg/dL 07/30/2023 9:14 AM CDT DTL Estimated GFR (eGFR) 66 >=60 mL/min/BSA 07/30/2023 9:14 AM CDT DTL Comment: Estimated GFR calculated using the 2020 CKD_EPI creatinine equation. Blood (Blood, Venous) 07/30/2023 8:13 AM CDT 07/30/2023 8:52 AM CDT Red Gallego M.D. LAB BLOOD ADD-ON [facility] 200 [place] [address], [facility] DTL [facility] [address] [place] [address] * CT Head Neck Angiogram with IV [...]
--- OUTSIDE RECORDS SUMMARY | 2023-09-13 10:05 | XMS_ITS | Encounter Summary ---
Author Organization [facility] Address [address] [place] [address] Care Team Providers Care Bridal Consultant Name Role Phone Unavailable Primary Care Provider Unavailabl e Encounter Details Date Type Department Care Team (Late st Contact Info) Description 08/01/2023 Clinical Communication Division of transplant surgeon in [place], [place] [address] [place] [address] Prescheduling, Provider Social History Tobacco Use Types Packs/Day Years Used Date Smoking Tobacco: Unknown [facility] Utilities Answer Date Recorded In the past 12 months has [facility] electric, gas, oil, or water [employer] threatened to shut off services in your [...] your living situation today? I have a [facility] place to live 07/25/2023 Sex [...]
--- OUTSIDE RECORDS SUMMARY | 2023-09-13 10:05 | XMS_ITS | Encounter Summary ---
Author Organization [facility] Address [address] [place] [address] Care Team Providers Care Courtroom Deputy Name Role Phone Unavailable Primary Care Provider Unavailabl e Encounter Details Date Type Department Care Team (Late st Contact Info) Description 07/30/2023 10:45 AM CDT Ancillary Procedure Department of Ophthalmology Social History Tobacco Use Types Packs/Day Years Used Date Smoking Tobacco: Unknown [facility] Utilities Answer Date Recorded In the past 12 months has th e [employer], gas, oil, or water [employer] threatened to shut off services in your [...] your living situation today? I have a [facility] place to live 07/25/2023 Sex [...]
--- OUTSIDE RECORDS SUMMARY | 2023-09-13 10:05 | XMS_ITS | Encounter Summary ---
Author Organization [facility] Address [address] [place] [address] Care Team Providers Care Vulcanizing Machine Operator Name Role Phone Unavailable Primary Care Provider Unavailabl e Encounter Details Date Type Department Care Team (Late st Contact Info) Description 07/03/2023 Orders Only Department of Ophthalmology in [place], [place] [address] [place] [address] Red Gallego M.D. [address] [place] [phone] Social History Tobacco Use Types Packs/Day Years Used Date Smoking Tobacco: Unknown [facility] Utilities Answer Date Recorded In the past 12 months has [facility] electric, gas, oil, or water company [...] your living situation today? I have a [facility] place to live 07/25/2023 Sex and [...]
--- OUTSIDE RECORDS SUMMARY | 2023-09-13 10:05 | XMS_ITS | Encounter Summary ---
Author Organization [facility] Address [address] [place] [address] Care Team Providers Care Hospice Music Therapist Name Role Phone Unavailable Primary Care Provider Unavailabl e Encounter Details Date Type Department Care Team (Late st Contact Info) Description 07/30/2023 2:10 PM CDT Ancillary Procedure Department of Ophthalmology in [place], [place] [address] [place] [address] Red Gallego M.D. [address] [place] [phone] Social History Tobacco Use Types Packs/Day Years Used Date Smoking Tobacco: Unknown [facility] Utilities Answer Date Recorded [...] your living situation today? I have [facility] place [facility] 07/25/2023 Sex and Gender [...]
--- OUTSIDE RECORDS SUMMARY | 2023-09-13 10:05 | XMS_ITS | Encounter Summary ---
Author Organization [facility] Address [address] [place] [address] Care Team Providers Care Manager Of Financial Planning Name Role Phone Unavailable Primary Care Provider Unavailabl e Encounter Details Date Type Department Care Team (Latest Contact Info) Description 07/30/2023 9:30 AM CDT Ancillary Procedure Department of Ophthalmology in [place], [place] [address] [place] [address] Red Gallego M.D. [address] [place] [phone] Neuropathy Optic Social History Tobacco Use Types Packs/Day Years Used Date Smoking Tobacco: Unknown [facility] Utilities Answer Date Recorded In [...] chart note dated 07/30/2023 Rde Gallego M.D. OPHUDAY RIOS FIEL D OPHTHALMOLOGY IMAGING EXAM documented in this encounter Visit Diagnoses Diagnosis Neuropathy Optic documented in this encounter
--- OUTSIDE RECORDS SUMMARY | 2023-09-13 10:06 | XMS_ITS | Encounter Summary ---
Author Organization [facility] Address [address] [place] [address] Care Team Providers Care Fountain Pen Turner Name Role Phone Unavailable Primary Care Provider Unavailabl e Reason for Visit * Reason Onset Date Comments Pre-visit Testing Orders 05/18/2023 Encounter Details Date Type Department Care Team (Latest Contact Info) Description 05/18/2023 Clinical Communication Department of Ophthalmology in [place], [place] [address] [place] [address] Red Gallego M.D. [address] [place] [address] Pre-visit Testing Orders Social History Tobacco Use [...] 1:41 PM CDT OCT device used was [employer] . Notes [facility] - Patient would not allow us to complete exam. Managed to get most scans done on the right eye. No left eye scans. The interpretation report for this test can be found in the Testing section of the chart note dated 07/30/2023 Red Gallego M.D. OPHTH TOMOGRAPHY Performing Organization Address [facility] [place] [facility] de Phone Number OPHTHALMOLOGY IMAGING EXAM [...] Gallego M.D. OPHTH PHOTOGRAPHY Performing Organization Address [facility] [place] [facility] Co de Phone Number OPHTHALMOLOGY IMAGING EXAM * Automated VF - Extended - OU - Both Eyes (07/30/2023 10:04 AM CDT) [facility] OPHTHALMOLOGY IMAGING EXAM - 07/30/2023 [...] Red Gallego M.D. 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
--- OUTSIDE RECORDS SUMMARY | 2023-09-13 10:06 | XMS_ITS | Clinical Summary ---
Author Organization [facility] Address [place], [place] [address] Care Team Providers Care Equine Science Instructor Name Role Phone Marcio Gonzalez MD Primary Care Provider [phone] Allergies Active Allergy Reactions Criticality Noted Date [...] at bedtime. 90 Tablet 3 11/08/2022 Active acetic acid 0.25% 0.25 % [...] mouth once daily. 90 Capsule 06/19/2023 Active brimonidine (ALPHAGAN) 0.2 % ophthalmic solution Place 1 Drop into left eye two times daily. Active traMADoL (ULTRAM) 50 mg tabletIndications:Ri ght leg pain TAKE 1 TABLET BY MOUTH DAILY NEEDED FOR WOUND PAIN OR BACK PAIN 30 Tablet 1 07/27/2023 Active fluticasone lha-yhlmpqhprgpb-sem anterol (Trelegy Ellipta) 100-62.5-25 mcg inhalerIndications:P anlobular emphysema (HC) INHALE 1 PUFF BY MOUTH EVERY DAY 180 Each 08/11/2023 Active Active Problems Problem Noted Date Diagnosed Date History of stroke 07/27/2023 Overview: left MCA territory ischemic stroke, pmh of HLD, tobacco use, morbid obesity, COPD, BRITNEY and chronic back pain who is following up in stroke clinic today. He had presented to [facility] on 11/09/2018 with difficulty finding words and [...] Word Finding Difficulties Recommended follow up at [facility] Stroke Clinic. 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 [address] [place] [address] Marcio Gonzalez MD Refill Request (Trelegy Ellipta) 08/08/2023 2:00 PM CDT Office Visit [facility] [address] [place] [address] Marcio Gonzalez MD Hospital F/U (Pneumonia /[facility] 07/29 - 08/01/Patient reports doing better) 08/08/2023 Travel 07/31/2023 Orders Only [facility] Scanner 1 scan: (1-Ord) [facility] 07/30/2023 Orders Only [facility] Scanner 1 scan: (1-Ord) [facility], XR CHEST 1V PORTABLE, 07/30/2023 07/27/2023 10:30 AM CDT Office Visit [facility] [address] [place] [address] Marcio Gonzalez MD Medication Management (Tramadol follow up//Spouse has questions about atenolol - not a current medication) 07/27/2023 Travel 06/19/2023 Telephone [facility] [address] [place] [phone] Dave Maya MD Refill Request (Diltiazem/) 06/17/[address] [facility] [address] [place] [address] Marcio Gonzalez MD Refill Request (Tramadol) from Last 3 Months Immunizations Name Administration Dates Next Due COVID-19 Vaccine Spikevax (M oderna 50mcg/0.5mL) 12YO+ [id number] Formula PF 01/17/2023 COVID-19 vaccine (Pfizer-BioNTech 30mcg/0.3mL) P F, V 06/22/2020,06/01/2020 Influenza, High-dose Inactivated 06/06/2019,12/09 Influenza, High-dose [...] Respiratory Rate 18 05/02/2023 10:5 7 AM ELECTRIC UTILITY LINEWORKER Oxygen Saturation 92% 08/08/2023 2:12 PM CDT Inhaled Oxygen Concentration - - Weight 134.9 kg (297 lb 4.8 oz) 024 10:38 AM CDT Height 185.4 cm (6' 1) 05/22/2023 9:53 AM ELECTRIC UTILITY LINEWORKER Body Mass Index 39.22 05/22/2023 9:53 AM ELECTRIC UTILITY LINEWORKER Plan of Treatment Health Maintenance Due Date [...] history exists Medical Devices Implanted Type Area Parts Classifier Device Identifier Shelf Expiration Date Model / Serial / Lot Tissue Pericardium 0.8x8cm Phot[employer]ix Bovine - [id number] Implanted:Qty: 1 on 02/13/2022 by Kael Hernandez MD at [facility] Cv Implants Right: Groin [employer] 02/27/2022 PFP 0.8X8 / / [id number] Stent Aaa [id number] Excluder Ibc - [id number] Implanted:Qty: 1 on 02/13/2022 by Kael Hernandez MD at [facility] Right: Iliac Artery [employer] 2024 [id number] / [id number] / Stent Aaa [id number] Excluder Iic - [id number] Implanted:Qty: 1 on 02/13/2022 by Kael Hernandez MD at [facility] Right: Iliac Artery [employer] 04/20/2024 [id number] / [id number] / Procedures Procedure Name Priority Date/Time Associated Diagnosis Comments SCAN-EYE EXAM 07/31/2023 12:00 AM CDT SCAN-RADIOLOGY REPORT 07/30/2023 12:00 AM CDT ANTI [...] Recently Relevant to Health Maintenance Results * SCAN-EYE EXAM (07/31/2023 12:00 AM CDT) Scanner OTHER * SCAN-RADIOLOGY REPORT (07/30/2023 12:00 AM CDT) Anatomical Region Laterality Modality Other Scanner OTHER * ANTI HCV (02/08/2022 11:20 AM CDT) HEPATITIS C ANTIBODY Non-React mandie Non-React mandie 02/09/2022 2:56 PM CDT [facility] Comment:Antibodies to HCV no t detected; does not exclude the possibility of exposure to HCV. Blood BLOOD SPECIMEN / Unknown Venipuncture / Unknown 02/08/2022 11:20 AM CDT 02/08/2022 11:27 AM CDT Marcio Gonzalez MD SEND OUTS [facility] [address] [place] [address], [place] * CT CHEST SCREENING LOW DOSE [...] @11/02/2021 8:56:18 AM Pediatric and Body Radiology [email or web address] Narrative 11/02/2021 9:43 AM CDT For [...] Documents on File Type Date Recorded Patient Slot Machine Repairer Expl anation Treatment Guidelines 02/11/2022 * Full Code (Latest Code Status on File) Date Activated Date Inactivated Comments 02/13/2022 1:00 PM 02/14/2022 5:39 PM Question Answer Comments Code Status Discussion: Reviewed Preferences * Full Code Date Activated Date Inactivated Comments 02/13/2022 6:05 AM 02/13/2022 12:59 PM Question Answer Comments Code Status Discussion: Unable to Assess Preferences, Provider to review later Care Teams Equine Science Instructor Relationship Specialty Start Date End Date Marc[place] [address] PCP - General Family Practice 12/20/15
== END 2023-09-13 10:04 | disposition home or self-care (01) ==
LOC: WOUND 10:03
PROVIDERS: PCP Family Medicine; Visit Provider Nurse Practitioner Family
DX: I87.311 Chronic venous hypertension (idiopathic) with ulcer of right lower extremity (principal); I89.0 Lymphedema, not elsewhere classified; L97.212 Non-pressure chronic ulcer of right calf with fat layer exposed
CPT/HCPCS: 11042

== ENCOUNTER 2023-09-27 09:58 | Outpatient (CLI) | payer MEDICARE, BC, SELFPAY ==
--- OUTSIDE RECORDS SUMMARY | 2023-09-27 10:00 | XMS_ITS ---
Author Organization [facility] Address [address] [place] [address] Care Team Providers Care Air Boatswain Name Role Phone Unavailable Unavailable Unavailable Surgery Details Not on file Complications Check Surgery Details section. Procedure Estimated Blood Loss Check Surgery Details section. Procedure Findings Check Surgery Details section. Procedure Specimens Taken Check Surgery Details section.
--- OUTSIDE RECORDS SUMMARY | 2023-09-27 10:00 | XMS_ITS | Clinical Summary ---
Author Organization [facility] Address [address] [place] [address] Care Team Providers Care Orthotist/Prosthetist Name Role Phone Unavailable Primary Care Provider Unavailabl e Source Comments Patient records contain information from all sites at [facility]. For routine questions regarding patient records, call [phone] during business hours, M-F 8:00 AM - 5:00 PM Central Time. Record requests for emergency care only can be directed to [phone] at any time.[facility] Allergies Active Allergy Reactions Criticality Noted Date [...] into both eyes at bedtime. 07/07/2023 Active Hospital, Clinic, or Other Facility Administered [...] 09/11/2023 Orders Only Department of Ophthalmology in [place], [place] [address] [place] [phone] Anabel Lang C.O.A. Ischemia Retina (Primary Dx) 09/11/2023 Clinical Communication Department of Ophthalmology in [place], [place] [address] [place] [phone] Rachel Collins M.D., Ph.D. 08/01/2023 Clinical Communication Division of night assistant in [place], [place] [address] [place] [phone] Prescheduling, Provider 07/31/2023 Clinical Communication Department of Ophthalmology in [place], [place] [address] [place] [phone] Rachel Collins M.D., Ph.D. 07/30/2023 3:20 PM CDT Ancillary Procedure Department of Ophthalmology 07/30/2023 3:15 PM CDT Comprehensive Visit Department of Ophthalmology in [place], [place] [address] [place] [phone] Red Gallego M.D. Ischemia Retina (Primary Dx); Arteritis Temporal (HCC); Glaucoma Neovascular; Intraocular Lens Implant Status Post; Occlusion Carotid Artery Left 07/30/2023 2:10 PM CDT Ancillary Procedure Department of Ophthalmology in [place], [place] [address] [place] [address] Red Gallego M.D. 07/30/2023 1:25 PM CDT Ancillary Procedure Department of Ophthalmology 07/30/2023 12:00 PM CDT Ancillary Procedure Department of Ophthalmology in [place], [place] [address] [place] [phone] Red Gallego M.D. Neuropathy Optic 07/30/2023 11:15 AM CDT Ancillary Procedure Department of Ophthalmology in [place], [place] [address] [place] [phone] Red Gallego M.D. Neuropathy Optic 07/30/2023 10:45 AM CDT Ancillary Procedure Department of Ophthalmology 07/30/2023 9:40 AM CDT Ancillary Procedure Department of Ophthalmology 07/30/2023 9:30 AM CDT Ancillary Procedure Department of Ophthalmology in [place], [place] [address] [place] [phone] Red Gallego M.D. Neuropathy Optic 07/30/2023 7:50 AM CDT - 07/30/2023 11:59 PM CDT Hospital Encounter Department of Laboratory Medicine and Pathology, [facility], in [place], [place] [address] [place] [phone] Red Gallego M.D. Loss Visual; Defect Visual Field Discharge Disposition: Home or Self Care 07/30/2023 Clinical Communication Department of Ophthalmology in [place], [place] [address] [place] [phone] Provider, Unknown Appt Request 07/30/2023 Ancillary Procedure Department of Ophthalmology 07/30/2023 Episode Changes Department of Ophthalmology in [place], [place] [address] [place] [phone] Giana Mancilla 07/29/2023 1:27 PM CDT - 07/29/2023 11:59 PM CDT Hospital Encounter Department of Radiology, [facility], in [place], [place] [address] [place] [address] Red Gallego M.D. Loss Visual Discharge Disposition: Home or Self Care 07/25/2023 Orders Only Department of Ophthalmology in [place], [place] [address] [place] [address] Red Gallego M.D. Loss Visual (Primary Dx); Defect Visual Field 07/25/2023 Clinical Communication Department of Ophthalmology in [place], [place] [address] [place] [address] Red Gallego M.D. Appt Request 07/24/2023 2:40 PM CDT - 07/24/2023 11:59 PM CDT Hospital Encounter Department of Radiology, [facility] in [place], [place] [address] [place] [address] Red Gallego M.D. Neuropathy Optic Discharge Disposition: Home or Self Care 07/03/2023 Orders Only Department of Ophthalmology in [place], [place] [address] [place] [address] Red Gallego M.D. from Last 3 Months Social History Tobacco Use Types Packs/Day Years Used Date Smoking Tobacco: Unknown [facility] Utilities Answer Date Recorded In the past 12 months has [employer], gas, oil, or water [employer] threatened to shut off services in your [...] history exists Medical Devices Implanted Type Area Post Tronic Machine Operator Device Identifier Shelf Expiration Date Model / Serial / Lot J J Sig Patella Oval 41 - [id number] [id number] Implanted:Qty: 1 on 10/23/2011 Knee Implant Other/Legacy - See Implant Description [employer] Description:Device Manufactu rer - J [employer] J Healthcare. Body Location - Other. Left. Device Status Text - [id number] [id number]. Depuy-Insert Stabilized Sz 5 12.5mm - Briones [id number] Implanted:Qty: 1 on 10/23/2011 Knee Implant Other/Legacy - See Implant Description [employer] Description:Device Manufactu rer - J & J Ortho. Body Location - Other. Left. Device Status Text - [id number] [id number]. Depuy-Tib Tray Mod Cement Cocr Sz5 - Briones [id number] Implanted:Qty: 1 on 10/23/2011 Knee Implant Other/Legacy - See Implant Description [employer] Description:Device Manufactu rer - J & J Ortho. Body Location - Other. Left. Device Status Text - KNEE [id number]. Sigma Post Stab.W Lug Fem Sz 6 Lt - Briones [id number] Implanted:Qty: 1 on 10/23/2011 Knee Implant Other/Legacy - See Implant Description [employer] Description:Device Manufactu rer - [employer]. Body Location - Other. Left. Device Status Text - KNEE [id number]. Cement Bone Large - Briones [id number] Implanted:Qty: 2 on 10/23/2011 Mis Other [place] Description:Device Manufactu rer - [place] [employer].. Device Status Text - [id number]-[id number]. Procedures Procedure [...] METABOLIC PANEL, S/P Routine 03/27/2023 3:[address] ABDOMEN PELVIS WITH IV CONTRAST [...] 1:41 PM CDT OCT device used was [employer] . Notes [facility] - Patient would not allow us to complete exam. Managed to get most scans done on the right eye. No left eye scans. The interpretation report for this test can be found in the Testing section of the chart note dated 07/30/2023 Red Gallego M.D. OPHTH TOMOGRAPHY Performing Organization Address [facility] de Phone Number OPHTHALMOLOGY IMAGING EXAM * [...] Gallego M.D. OPHTH PHOTOGRAPHY Performing Organization Address [facility] de Phone Number OPHTHALMOLOGY IMAGING EXAM * [...] OPHTH VISUAL FIEL D Performing Organization Address [facility] de Phone Number OPHTHALMOLOGY IMAGING EXAM * (ABNORMAL) Sedimentation Rate (07/30/2023 8:13 AM CDT) Sedimentation Rate, B 42(H) 3 - 28 mm/h 07/30/2023 10:11 AM CDT DTL Blood (Blood, Venous) 07/30/2023 8:13 AM CDT 07/30/2023 8:41 AM CDT Red Gallego M.D. LAB BLOOD ADD-ON [facility] [address] [place] [address], [facility] DTL [facility] [address] [place] [address] * (ABNORMAL) CBC with Differential, Blood (07/30/2023 [...] CDT Red Gallego M.D. LAB BLOOD ADD-ON [facility] [address] [place] [address], [facility] [address] [place], [place] [phone] [place] [address] [address] [place] [address] * (ABNORMAL) CRP (C-Reactive Protein) (07/30/2023 8:13 AM CDT) C-Reactive Protein (CRP), S 33.6(H) <5.0 mg/L 07/30/2023 9:14 AM CDT DTL Blood (Blood, Venous) 07/30/2023 8:13 AM CDT 07/30/2023 8:52 AM CDT Narrative Authorizing Provider Result Celina Gallego M.D. LAB BLOOD ADD-ON Performing Organization Address [facility] Co de Phone Number [facility] [address] [place] [address], [facility] [address] [place] [address] * Creatinine with Estimated GFR (07/30/2023 8:13 AM CDT) Creatinine 1.15 0.74 - 1.35 mg/dL 07/30/2023 9:14 AM CDT DTL Estimated GFR (eGFR) 66 >=60 mL/min/BSA 07/30/2023 9:14 AM CDT DTL Comment: Estimated GFR calculated using the 2020 CKD_EPI creatinine equation. Blood (Blood, Venous) 07/30/2023 8:13 AM CDT 07/30/2023 8:52 AM CDT Red Gallego M.D. LAB BLOOD ADD-ON [facility] [address] [place] [address], [place] DTL [facility] [address] [place] [address] * CT Head Neck Angiogram with IV [...]
--- OUTSIDE RECORDS SUMMARY | 2023-09-27 10:00 | XMS_ITS | Referral Summary ---
Author Organization [facility] Address [address] [place] [address] Care Team Providers Care Journeyman Sheet Metal Worker Name Role Phone Unavailable Primary Care Provider Unavailabl e Source Comments Patient records contain information from all sites at [facility]. For routine questions regarding patient records, call [phone] during business hours, M-F 8:00 AM - 5:00 PM Central Time. Record requests for emergency care only can be directed to [phone] at any time.[facility] Encounters Date Type Department Care Team Description 09/11/2023 Orders Only Department of Ophthalmology in [place], [place] [address] [place] [address] Anabel Lang C.O.A. Ischemia Retina (Primary Dx) 09/11/2023 Clinical Communication Department of Ophthalmology in [place], [place] [address] [place] [address] Rachel Collins M.D., Ph.D. 08/01/2023 Clinical Communication Division of plastic joint maker in [place], [place] [address] [place] [address] Prescheduling, Provider 07/31/2023 Clinical Communication Department of Ophthalmology in [place], [place] [address] [place] [phone] Rachel Collins M.D., Ph.D. 07/30/2023 3:20 PM CDT Ancillary Procedure Department of Ophthalmology 07/30/2023 Clinical Communication Department of Ophthalmology in [place], [place] [address] [place] [address] Provider, Unknown Appt Request 07/30/2023 1:25 PM CDT Ancillary Procedure Department of Ophthalmology 07/30/2023 Ancillary Procedure Department of Ophthalmology 07/30/2023 Episode Changes Department of Ophthalmology in [place], [place] [address] [place] [phone] Giana Mancilla Johnny 07/30/2023 10:45 AM CDT Ancillary Procedure Department of Ophthalmology 07/30/2023 9:40 AM CDT Ancillary Procedure Department of Ophthalmology 07/30/2023 7:50 AM CDT - 07/30/2023 11:59 PM CDT Hospital Encounter Department of Laboratory Medicine and Pathology, [facility] in [place], [place] [address] [place] [phone] Red Gallego M.D. Loss Visual; Defect Visual Field Discharge Disposition: Home or Self Care 07/30/2023 2:10 PM CDT Ancillary Procedure Department of Ophthalmology in [address] [phone] Red Gallego M.D. 07/30/2023 12:00 PM CDT Ancillary Procedure Department of Ophthalmology in [address] [address] Red Gallego M.D. Neuropathy Optic 07/30/2023 9:30 AM CDT Ancillary Procedure Department of Ophthalmology in [address] [address] Red Gallego M.D. Neuropathy Optic 07/30/2023 11:15 AM CDT Ancillary Procedure Department of Ophthalmology in [address] [address] Red Gallego M.D. Neuropathy Optic 07/30/2023 3:15 PM CDT Comprehensive Visit Department of Ophthalmology in [address] [address] Red Gallego M.D. Ischemia Retina (Primary Dx); Arteritis Temporal (HCC); Glaucoma Neovascular; Intraocular Lens Implant Status Post; Occlusion Carotid Artery Left 07/29/2023 1:27 PM CDT - 07/29/2023 11:59 PM CDT Hospital Encounter Department of Radiology, [facility], in [place], [place] [address] [place] [address] Red Gallego M.D. Loss Visual Discharge Disposition: Home or Self Care 07/25/2023 Orders Only Department of Ophthalmology in [place], [place] [address] [place] [address] Red Gallego M.D. Loss Visual (Primary Dx); Defect Visual Field 07/25/2023 Clinical Communication Department of Ophthalmology in [place], [place] [address] [place] [address] Red Gallego M.D. Appt Request 07/24/2023 2:40 PM CDT - 07/24/2023 11:59 PM CDT Hospital Encounter Department of Radiology, [facility] in [place], [place] [address] [place] [address] Red Gallego M.D. Neuropathy Optic Discharge Disposition: Home or Self Care 07/03/2023 Orders Only Department of Ophthalmology in [place], [place] [address] [place] [address] Red Gallego M.D. from Last 3 Months [...] Packs/Day Years Used Date Smoking Tobacco: Unknown [facility] Utilities Answer Date Recorded In the past 12 months has [facility] [email or web address], oil, or water [employer] threatened to shut off services in your [...] on file Medical Devices Implanted Type Area Superintendent Job Device Identifier Shelf Expiration Date Model / Serial / Lot J J Sig Patella Oval 41 - Briones [id number] Implanted:Qty: 1 on 10/23/2011 Knee Implant Other/Legacy - See Implant Description [employer] Description:Device Manufactu [facility] - J & J Healthcare. Body Location - Other. Left. Device Status Text - KNEE [id number]. Depuy-Insert Stabilized Sz 5 12.5mm - Briones [id number] Implanted:Qty: 1 on 10/23/2011 Knee Implant Other/Legacy - See Implant Description [employer] Description:Device Manufactu rer - J & J Ortho. Body Location - Other. Left. Device Status Text - KNEE [id number]. Depuy-Tib Tray Mod Cement Cocr Sz5 - Briones [id number] Implanted:Qty: 1 on 10/23/2011 Knee Implant Other/Legacy - See Implant Description [employer] Description:Device Manufactu rer - J & J Ortho. Body Location - Other. Left. Device Status Text - KNEE [id number]. Sigma Post Stab.W Lug Fem Sz 6 Lt - Briones [id number] Implanted:Qty: 1 on 10/23/2011 Knee Implant Other/Legacy - See Implant Description [employer] Description:Device Manufactu rer - J & J Healthcare. Body Location - Other. Left. Device Status Text - KNEE [id number]. Cement Bone Large - Briones [id number] Implanted:Qty: 2 on 10/23/2011 Misc Other [place] Description:Device Manufactu rer - [place] [employer]ar[employer].. Device [...] METABOLIC PANEL, S/P Routine 03/27/2023 3:[address] ABDOMEN PELVIS WITH IV CONTRAST RAD [...] PROCEDURES Performing Organization Address [facility] de Phone Number IIMS NA * Optical Coherence Tomography - Optic Nerve - OU - Both Eyes (07/30/2023 1:36 PM CDT) Narrative OPHTHALMOLOGY IMAGING EXAM - 07/30/2023 1:41 PM CDT OCT device used was [employer] . Notes [facility] - Patient would not allow us to complete exam. Managed to get most scans done on the right eye. No left eye scans. The interpretation report for this test can be found in the Testing section of the chart note dated 07/30/2023 Red Gallego M.D. OPHTH TOMOGRAPHY Performing Organization Address [facility] de Phone Number OPHTHALMOLOGY IMAGING [...] Gallego M.D. OPHTH PHOTOGRAPHY Performing Organization Address [facility] de Phone Number OPHTHALMOLOGY IMAGING [...] OPHTH VISUAL FIEL D Performing Organization Address [facility]/ZIP Co de Phone Number OPHTHALMOLOGY IMAGING EXAM * (ABNORMAL) Sedimentation Rate (07/30/2023 8:13 AM CDT) Pathologist [facility] Sedimentation Rate, B 42(H) 3 - 28 mm/h 07/30/2023 10:11 AM CDT DTL Blood (Blood, Venous) 07/30/2023 8:13 AM CDT 07/30/2023 8:41 AM CDT Red Gallego M.D. LAB BLOOD ADD-ON Performing Organization Address [facility] de Phone Number [facility] [address] [facility] [address] [place] [address] * (ABNORMAL) CBC with Differential, Blood (07/30/2023 8:13 AM CDT) [facility] Hemoglobin 10.9(L) 13.2 - 16.6 g/dL 07/30/2023 [...] - 6.45 x10(9)/L 07/30/2023 9:29 AM CDT PM Lymphocytes 2.02 0.95 - 3.07 x10(9)/L 07/30/2023 [...] LAB BLOOD ADD-ON [facility] [address] [place] [address], [facility] [address] [place], [place] [address] [place] [address] [address] [place] [address] * (ABNORMAL) CRP (C-Reactive Protein) (07/30/2023 8:13 AM CDT) C-Reactive Protein (CRP), S 33.6(H) <5.0 mg/L 07/30/2023 9:14 AM CDT DTL Blood (Blood, Venous) 07/30/2023 8:13 AM CDT 07/30/2023 8:52 AM CDT Red Gallego M.D. LAB BLOOD ADD-ON [facility] [address] [place] [address], [facility] [address] [place] [address] * Creatinine with Estimated GFR (07/30/2023 8:13 AM CDT) Creatinine 1.15 0.74 - 1.35 mg/dL 07/30/2023 9:14 AM CDT DTL Estimated GFR (eGFR) 66 >=60 mL/min/BSA 07/30/2023 9:14 AM CDT DTL Comment: Estimated GFR calculated using the 2020 CKD_EPI creatinine equation. Blood (Blood, Venous) 07/30/2023 8:13 AM CDT 07/30/2023 8:52 AM CDT Red Gallego M.D. LAB BLOOD ADD-ON [facility] [address] [place] [address], [facility] [address] [place] [address] * CT Head Neck Angiogram with IV [...]
--- OUTSIDE RECORDS SUMMARY | 2023-09-27 10:01 | XMS_ITS | Encounter Summary ---
Author Organization [facility] Address [address] [place] [address] Care Team Providers Care Cra Officer Name Role Phone Unavailable Primary Care Provider Unavailabl e Reason for Visit * MRI/CAT/PET Scan (Routine) - Closed Specialty Diagnoses / Procedures Referred By Janeth t Referred To Contact Radiology Diagnoses Neuropathy Optic Procedures MR Examination Not Performed MR Orbits without and with IV Contrast Red Gallego M.D. [address] [place] [phone] [facility] Referral ID Status Reason Start Date Expiration Date Visits Re quested Visits Authorized [id number] Closed 07/04/2023 07/03/2024 1 1 Encounter Details Date Type Department Care Team (Latest Contact Info) Description 07/24/2023 2:40 PM CDT - 07/24/2023 11:59 PM CDT Hospital Encounter Department of Radiology, [facility] in [place], [place] [address] [place] [address] Red Gallego M.D. [address] [place] [phone] Neuropathy Optic Discharge Disposition: Home or Self Care Social History Tobacco Use Types Packs/Day Years Used Date Smoking Tobacco: Unknown [facility] Utilities Answer Date Recorded [...] your living situation today? I have a [facility] place to live 07/25/2023 Sex [...] Phone number of accompanying adult wait [facility] Does patient have an allergy [...] patient discomfort and claustrophobia. Red Gallego M.D. [facility] MRI PROCEDURE S * MR Examination Not [...]
--- OUTSIDE RECORDS SUMMARY | 2023-09-27 10:01 | XMS_ITS | Encounter Summary ---
Author Organization [facility] Address [address] [place] [address] Care Team Providers Care Senior Oracle Soa Developer Name Role Phone Unavailable Primary Care Provider Unavailabl e Encounter Details Date Type Department Care Team (Latest Contact Info) Description 07/30/2023 11:15 AM CDT Ancillary Procedure Department of Ophthalmology in [place], [place] [address] [place] [address] Red Gallego M.D. [address] [place] [phone] Neuropathy Optic Social History Tobacco Use Types Packs/Day Years Used Date Smoking Tobacco: Unknown [facility] Utilities Answer Date Recorded In the [...] your living situation today? I have a [facility] place to live 07/25/2023 Sex and [...]
--- OUTSIDE RECORDS SUMMARY | 2023-09-27 10:01 | XMS_ITS | Encounter Summary ---
Author Organization [facility] Address [address] [place] [address] Care Team Providers Care Bag Liner Name Role Phone Unavailable Primary Care Provider Unavailabl e Encounter Details Date Type Department Care Team (Late st Contact Info) Description 07/30/2023 3:20 PM CDT Ancillary Procedure Department of Ophthalmology Social History Tobacco Use Types Packs/Day Years Used Date Smoking Tobacco: Unknown [facility] Utilities Answer Date Recorded In the past 12 months has th e [employer], gas, oil, or water [email or web address] threatened to shut off services in your [...]
--- OUTSIDE RECORDS SUMMARY | 2023-09-27 10:01 | XMS_ITS | Encounter Summary ---
Author Organization [facility] Address [address] [place] [address] Care Team Providers Care Certified Personal Trainer Name Role Phone Unavailable Primary Care Provider Unavailabl e Encounter Details Date Type Department Care Team (Late st Contact Info) Description 07/03/2023 Orders Only Department of Ophthalmology in [place], [place] [address] [place] [address] Red Gallego M.D. [address] [place] [phone] Social History Tobacco Use Types Packs/Day Years Used Date Smoking Tobacco: Unknown [facility] Utilities Answer Date Recorded In the past 12 months has [facility], gas, oil, or water company [...] your living situation today? I have a [facility] place to live 07/25/2023 Sex [...]
--- OUTSIDE RECORDS SUMMARY | 2023-09-27 10:01 | XMS_ITS | Encounter Summary ---
Author Organization [facility] Address [address] [place] [address] Care Team Providers Care Targeting Acquisition Officer Name Role Phone Unavailable Primary Care Provider Unavailabl e Encounter Details Date Type Department Care Team (Late st Contact Info) Description 08/01/2023 Clinical Communication Division of press shop supervisor in [place], [place] [address] [place] [address] Prescheduling, Provider Social History Tobacco Use Types Packs/Day Years Used Date Smoking Tobacco: Unknown [facility] Utilities Answer Date Recorded In the past 12 months has [facility] electric, gas, oil, or water [employer] threatened to shut off services in [...] your living situation today? I have a [facility] place to live 07/25/2023 Sex [...]
--- OUTSIDE RECORDS SUMMARY | 2023-09-27 10:01 | XMS_ITS | Encounter Summary ---
Author Organization [facility] Address [address] [place] [address] Care Team Providers Care Dryer And Washer Mechanic Name Role Phone Unavailable Primary Care Provider Unavailabl e Reason for Referral * Outpatient (Routine) - Authorized Specialty Diagnoses / Procedures Referred By Janeth phillips Referred To Contact Diagnoses Ischemia Retina Procedures Tamayo Retinal Photocoagulation - OS - Left Eye Rachel Collins M.D., Ph.D. [address] [place] [phone] [facility] Referral ID Status Reason Start Date Expiration Date V isits Requested Visits Authorized [id number] Authorized 09/11/2023 09/10/2024 1 1 * Outpatient (Routine) - Authorized Specialty Diagnoses / Procedures Referred By Janeth phillips Referred To Contact Diagnoses Ischemia Retina Procedures Intravitreal Injection Gonda Appt Order - OS - Left Eye Rachel Collins M.D., Ph.D. [address] [place] [address] [facility] Referral ID Status Reason Start Date Expiration Date V isits Requested Visits Authorized [id number] Authorized 09/11/2023 09/10/2024 1 1 Encounter Details Date Type Department Care Team (Late st Contact Info) Description 09/11/2023 Orders Only Department of Ophthalmology in [place], [place] [address] [place] [address] Anabel Lang C.O.A. [address] [place] [address] Ischemia Retina (Primary Dx) Social History Tobacco Use Types Packs/Day Years Used Date Smoking Tobacco: Unknown [facility] Utilities Answer Date Recorded In the [...] living situation today? I have a [facility] place to live 07/25/2023 Sex [...]
--- OUTSIDE RECORDS SUMMARY | 2023-09-27 10:01 | XMS_ITS | Encounter Summary ---
Author Organization [facility] Address [address] [place] [address] Care Team Providers Care Dial Painter Name Role Phone Unavailable Primary Care Provider Unavailabl e Reason for Visit * Reason Onset Date Comments Pre-visit Testing Orders 05/18/2023 Encounter Details Date Type Department Care Team (Latest Contact Info) Description 05/18/2023 Clinical Communication Department of Ophthalmology in [place], [place] [address] [place] [address] Red Gallego M.D. [address] [place] [address] Pre-visit Testing Orders Social History Tobacco Use [...] 1:41 PM CDT OCT device used was [employer] . Notes [facility] - Patient would not allow us to complete exam. Managed to get most scans done on the right eye. No left eye scans. The interpretation report for this test can be found in the Testing section of the chart note dated 07/30/2023 Red Gallego M.D. OPHTH TOMOGRAPHY Performing Organization Address [facility] de Phone Number OPHTHALMOLOGY IMAGING EXAM [...] Gallego M.D. OPHTH PHOTOGRAPHY Performing Organization Address [facility] Co de Phone Number OPHTHALMOLOGY IMAGING EXAM * Automated VF - Extended - OU - Both Eyes (07/30/2023 10:04 AM CDT) [facility] OPHTHALMOLOGY IMAGING EXAM - 07/30/2023 11:43 AM [...] Red Gallego M.D. 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
--- OUTSIDE RECORDS SUMMARY | 2023-09-27 10:01 | XMS_ITS | Encounter Summary ---
Author Organization [facility] Address [address] [place] [address] Care Team Providers Care Dye Weigher Helper Name Role Phone Unavailable Primary Care Provider Unavailabl e Reason for Referral * Outpatient (Routine) - Authorized Specialty Diagnoses / Procedures Referred By Janeth phillips Referred To Contact Ophthalmology Diagnoses Ischemia Retina Glaucoma Neovascular Jerica Gallego M.D. [address] [place] [address] [facility] Referral ID Status Reason Start Date Expiration Date V isits Requested Visits Authorized [id number] Authorized 07/30/2023 01/28/2025 1 1 Scheduling Instructions Please try to schedule within 1-2 weeks Reason for Visit * Reason Comments Decreased Visual Acuity * Appointment Request (Routine) - Closed Specialty Diagnoses / Procedures Referred By Janeth phillips Referred To Contact Ophthalmology Diagnoses Neuropathy Optic Ischemic Graciela Giron O.D. [address], [place] [address] Referral ID Status Reason Start Date Expiration Date Visits Re quested Visits Authorized [id number] Closed 04/27/2023 04/26/2024 1 1 Encounter Details Date Type Department Care Team (Latest Contact Info) Description 07/30/2023 3:15 PM CDT Comprehensive Visit Department of Ophthalmology in [place], [place] [address] [place] [phone] Jerica Gallego M.D. [address] [place] [address] Ischemia Retina (Primary Dx); Arteritis Temporal (HCC); Glaucoma Neovascular; Intraocular Lens Implant Status Post; Occlusion Carotid Artery Left Social History Tobacco Use Types Packs/Day Years Used Date Smoking Tobacco: Unknown [facility] Utilities Answer Date Recorded In the [...] your living situation today? I have a [facility] place to live 07/25/2023 Sex [...] the patient/ to reschedule the [place] [facility] for [place] when they know when [...]
--- OUTSIDE RECORDS SUMMARY | 2023-09-27 10:01 | XMS_ITS | Encounter Summary ---
Author Organization [facility] Address [address] [place] [address] Care Team Providers Care Quality Control Expert Name Role Phone Unavailable Primary Care Provider Unavailabl e Encounter Details Date Type Department Care Team (Late st Contact Info) Description 07/30/2023 1:25 PM CDT Ancillary Procedure Department of Ophthalmology Social History Tobacco Use Types Packs/Day Years Used Date Smoking Tobacco: Unknown [facility] Utilities Answer Date Recorded In the past 12 months has th e [employer], gas, oil, or water [employer] threatened to shut off services in [...] living situation today? I have a [facility] place to live 07/25/2023 Sex and [...]
--- OUTSIDE RECORDS SUMMARY | 2023-09-27 10:01 | XMS_ITS | Encounter Summary ---
Author Organization [facility] Address [address] [place] [address] Care Team Providers Care Shuttle Buggy Operator Name Role Phone Unavailable Primary Care Provider Unavailabl e Encounter Details Date Type Department Care Team (Latest Contact Info) Description 07/31/2023 Clinical Communication Department of Ophthalmology in [place], [place] [address] [place] [address] Rachel Collins M.D., Ph.D. [address] [place] [phone] Social History Tobacco Use Types Packs/Day Years Used Date Smoking Tobacco: Unknown [facility] Utilities Answer Date Recorded In the past 12 months has [facility] electric, gas, oil, or water [...] your living situation today? I have a [facility] place to live 07/25/2023 Sex [...]
--- OUTSIDE RECORDS SUMMARY | 2023-09-27 10:01 | XMS_ITS | Encounter Summary ---
Author Organization [facility] Address [address] [place] [address] Care Team Providers Care Bus Company Manager Name Role Phone Unavailable Primary Care Provider Unavailabl e Encounter Details Date Type Department Care Team (Latest Contact Info) Description 07/30/2023 7:50 AM CDT - 07/30/2023 11:59 PM CDT Hospital Encounter Department of Laboratory Medicine and Pathology, [facility], in [place], [place] [address] [place] [address] Red Gallego M.D. [address] [place] [address] Loss Visual; Defect Visual Field Discharge Disposition: Home or Self Care Social History Tobacco Use Types Packs/Day Years Used Date Smoking Tobacco: Unknown [facility] Utilities Answer Date Recorded In the past 12 months has [facility] electric, gas, oil, or water company [...] living situation today? I have a [facility] place to live 07/25/2023 Sex and [...] M.D. LAB BLOOD ADD-ON Performing Organization Address City/[facility]/ZIP Co de Phone Number [facility] [place] [address] [facility] [facility] [facility] 200 [place], [place] [phone] [place] [address] [address] [place] [address] * (ABNORMAL) CRP (C-Reactive Protein) (07/30/2023 8:13 AM CDT) C-Reactive Protein (CRP), S 33.6(H) <5.0 mg/L 07/30/2023 9:14 AM CDT DTL Blood (Blood, Venous) 07/30/2023 8:13 AM CDT 07/30/2023 8:52 AM CDT Red Gallego M.D. LAB BLOOD ADD-ON Performing Organization Address City/[facility]/ZIP Co de Phone Number [facility] [place] [address] [facility] 200 [place] [address] * (ABNORMAL) Sedimentation Rate (07/30/2023 8:13 AM CDT) Sedimentation Rate, B 42(H) 3 - 28 mm/h 07/30/2023 10:11 AM CDT DTL Blood (Blood, Venous) 07/30/2023 8:13 AM CDT 07/30/2023 8:41 AM CDT Red Gallego M.D. LAB BLOOD ADD-ON Performing Organization Address City/[facility]/ZIP Co de Phone Number [facility] [place] 200 [place] [address], [facility] [place] [facility] 200 [place] [address] * Creatinine with Estimated GFR (07/30/2023 8:13 AM CDT) Creatinine 1.15 0.74 - 1.35 mg/dL 07/30/2023 9:14 AM CDT DTL Estimated GFR (eGFR) 66 >=60 mL/min/BSA 07/30/2023 9:14 AM CDT DTL Comment: Estimated GFR calculated using the 2020 CKD_EPI creatinine equation. Blood (Blood, Venous) 07/30/2023 8:13 AM CDT 07/30/2023 8:52 AM CDT Red Gallego M.D. LAB BLOOD ADD-ON Performing Organization Address City/[facility]/ZIP Co de Phone Number [facility] [place] 200 [place] [address], [facility] [place] [facility] 200 [place] [address] documented in this encounter Visit Diagnoses Diagnosis Loss Visual Defect Visual Field documented in this encounter
--- OUTSIDE RECORDS SUMMARY | 2023-09-27 10:01 | XMS_ITS | Encounter Summary ---
Author Organization [facility] Address [address] [place] [address] Care Team Providers Care Office Rep Name Role Phone Unavailable Primary Care Provider Unavailabl e Reason for Visit * Reason Onset Date Comments Appt Request 07/30/2023 Encounter Details Date Type Department Care Team (Latest Contact Info) Description 07/30/2023 Clinical Communication Department of Ophthalmology in [place], [place] [address] [place] [address] Provider, Unknown Appt Request Social History Tobacco Use Types Packs/Day Years Used Date Smoking Tobacco: Unknown [facility] Utilities Answer Date Recorded In the [...]
--- OUTSIDE RECORDS SUMMARY | 2023-09-27 10:01 | XMS_ITS | Encounter Summary ---
Author Organization [facility] Address [address] [place] [address] Care Team Providers Care Fly Maker Name Role Phone Unavailable Primary Care Provider Unavailabl e Reason for Referral * MRI/CAT/PET Scan (Routine) - Closed Specialty Diagnoses / Procedures Referred By Janeth t Referred To Contact Radiology Diagnoses Loss Visual Procedures CT Head Neck Angiogram with IV Contrast Red Gallego M.D. [address] [place] [phone] [facility] Referral ID Status Reason Start Date Expiration Date Visits Re quested Visits Authorized [id number] Closed 07/25/2023 07/24/2024 1 1 Encounter Details Date Type Department Care Team (Late st Contact Info) Description 07/25/2023 Orders Only Department of Ophthalmology in [place], [place] [address] [place] [phone] Red Gallego M.D. [address] [place] [phone] Loss Visual (Primary Dx); Defect Visual Field Social History Tobacco Use Types Packs/Day Years Used Date Smoking Tobacco: Unknown [facility] Utilities Answer Date Recorded In the past [...] your living situation today? I have a [facility] place to live 07/25/2023 Sex and [...] - 6.45 x10(9)/L 07/30/2023 9:29 AM CDT [facility] Lymphocytes 2.02 0.95 - 3.07 x10(9)/L 07/30/2023 9:29 AM CDT DTL Monocytes 1.60(H) 0.26 - 0.81 x10(9)/L 07/30/2023 9:29 AM CDT DTL Eosinophils 0.14 0.03 - 0.48 x10(9)/L 07/30/2023 9:29 AM CDT DTL Basophils 0.07 0.01 - 0.08 x10(9)/L 07/30/2023 9:29 AM CDT DTL Blood (Blood, Venous) 07/30/2023 8:13 AM CDT 07/30/2023 8:41 AM CDT Red Gallego M.D. LAB BLOOD ADD-ON [facility] [address] [place] [address], [facility] DTL [facility] [address] [place], [place] [phone] [place] [address] [place] [address] * (ABNORMAL) CRP (C-Reactive Protein) (07/30/2023 8:13 AM CDT) C-Reactive Protein (CRP), S 33.6(H) <5.0 mg/L 07/30/2023 9:14 AM CDT DTL Blood (Blood, Venous) 07/30/2023 8:13 AM CDT 07/30/2023 8:52 AM CDT Red Gallego M.D. LAB BLOOD ADD-ON [facility] [address] [place] [address] * (ABNORMAL) Sedimentation Rate (07/30/2023 8:13 AM CDT) Sedimentation Rate, B 42(H) 3 - 28 mm/h 07/30/2023 10:11 AM CDT DTL Blood (Blood, Venous) 07/30/2023 8:13 AM CDT 07/30/2023 8:41 AM CDT Red Gallego M.D. LAB BLOOD ADD-ON Performing Organization Address [facility] Co de Phone Number [facility] [address] 200 [place] [address] * Creatinine with Estimated GFR (07/30/2023 8:13 AM CDT) Creatinine 1.15 0.74 - 1.35 mg/dL 07/30/2023 9:14 AM CDT DTL Estimated GFR (eGFR) 66 >=60 mL/min/BSA 07/30/2023 9:14 AM CDT DTL Comment: Estimated GFR calculated using the 2020 CKD_EPI creatinine equation. Blood (Blood, Venous) 07/30/2023 8:13 AM CDT 07/30/2023 8:52 AM CDT Red Gallego M.D. LAB BLOOD ADD-ON [facility] 200 [place] [address], [facility] DTL [facility] [address] [place] [address] * CT Head Neck Angiogram with IV [...]
--- OUTSIDE RECORDS SUMMARY | 2023-09-27 10:01 | XMS_ITS | Encounter Summary ---
Author Organization [facility] Address [address] [place] [address] Care Team Providers Care Music Librarian Name Role Phone Unavailable Primary Care Provider Unavailabl e Encounter Details Date Type Department Care Team (Late st Contact Info) Description 07/30/2023 9:40 AM CDT Ancillary Procedure Department of Ophthalmology Social History Tobacco Use Types Packs/Day Years Used Date Smoking Tobacco: Unknown [facility] Utilities Answer Date Recorded In the past 12 months has th e [employer], gas, oil, or water [employer] threatened to shut off services in your [...] living situation today? I have a [facility] place to live 07/25/2023 Sex and [...]
--- OUTSIDE RECORDS SUMMARY | 2023-09-27 10:01 | XMS_ITS | Encounter Summary ---
Author Organization [facility] Address [address] [place] [address] Care Team Providers Care Lead Assistant Manager Name Role Phone Unavailable Primary Care Provider Unavailabl e Encounter Details Date Type Department Care Team (Latest Contact Info) Description 09/11/2023 Clinical Communication Department of Ophthalmology in [place], [place] [address] [place] [address] Rachel Collins M.D., Ph.D. [address] [place] [phone] Social History Tobacco Use Types Packs/Day Years Used Date Smoking Tobacco: Unknown [facility] Utilities Answer Date Recorded In the past [address] [facility] electric, gas, oil, or water company [...] your living situation today? I have a [facility] place to live 07/25/2023 Sex [...]
--- OUTSIDE RECORDS SUMMARY | 2023-09-27 10:01 | XMS_ITS | Encounter Summary ---
Author Organization [facility] Address [address] [place] [address] Care Team Providers Care Senior Chemical Engineer Name Role Phone Unavailable Primary Care Provider Unavailabl e Encounter Details Date Type Department Care Team (Latest Contact Info) Description 07/30/2023 12:00 PM CDT Ancillary Procedure Department of Ophthalmology in [place], [place] [address] [place] [address] Red Gallego M.D. [address] [place] [phone] Neuropathy Optic Social History Tobacco Use Types [...] your living situation today? I have a [facility] place to live 07/25/2023 Sex and [...] OCT device used was [employer] . Notes [facility] - Patient would [...]
--- OUTSIDE RECORDS SUMMARY | 2023-09-27 10:01 | XMS_ITS | Encounter Summary ---
Author Organization [facility] Address [address] [place] [address] Care Team Providers Care Box Stapler Name Role Phone Unavailable Primary Care Provider Unavailabl e Encounter Details Date Type Department Care Team (Late st Contact Info) Description 07/30/2023 10:45 AM CDT Ancillary Procedure Department of Ophthalmology Social History Tobacco Use Types Packs/Day Years Used Date Smoking Tobacco: Unknown [facility] Utilities Answer Date Recorded In the past 12 months has th e [employer], gas, oil, or water [employer] threatened to shut off services in your [...] living situation today? I have a [facility] place to live 07/25/2023 Sex and [...]
--- OUTSIDE RECORDS SUMMARY | 2023-09-27 10:01 | XMS_ITS | Encounter Summary ---
Author Organization [facility] Address [address] [place] [address] Care Team Providers Care Welder First Class Name Role Phone Unavailable Primary Care Provider Unavailabl e Encounter Details Date Type Department Care Team (Late st Contact Info) Description 07/30/2023 Episode Changes Department of Ophthalmology in [place], [place] [address] [place] [address] Giana Mancilla Social History Tobacco Use Types Packs/Day Years Used Date Smoking Tobacco: Unknown [facility] Utilities Answer Date Recorded In [...]
--- OUTSIDE RECORDS SUMMARY | 2023-09-27 10:01 | XMS_ITS | Encounter Summary ---
Author Organization [facility] Address [address] [place] [address] Care Team Providers Care Seasonal Customer Service Associate Name Role Phone Unavailable Primary Care Provider Unavailabl e Reason for Visit * Reason Onset Date Comments Appt Request 07/25/2023 Encounter Details Date Type Department Care Team (Latest Contact Info) Description 07/25/2023 Clinical Communication Department of Ophthalmology in [place], [place] [address] [place] [address] Red Gallego M.D. [address] [place] [phone] Appt Request Social History Tobacco Use Types Packs/Day Years Used Date Smoking Tobacco: Unknown [facility] Utilities Answer Date Recorded In the past [...] your living situation today? I have a [facility] place to live 07/25/2023 Sex and [...]
--- OUTSIDE RECORDS SUMMARY | 2023-09-27 10:01 | XMS_ITS | Encounter Summary ---
Author Organization [facility] Address [address] [place] [address] Care Team Providers Care Photographic Machine Operator Name Role Phone Unavailable Primary Care Provider Unavailabl e Reason for Referral * MRI/CAT/PET Scan (Routine) - Closed Specialty Diagnoses / Procedures Referred By Janeth phillips Referred To Contact Radiology Diagnoses Loss Visual Procedures CT Head Neck Angiogram with IV Contrast Red Gallego M.D. [address] [place] [phone] [facility] Referral ID Status Reason Start Date Expiration Date Visits Re quested Visits Authorized [id number] Closed 07/25/2023 07/24/2024 1 1 Reason for Visit * MRI/CAT/PET Scan (Routine) - Closed Specialty Diagnoses / Procedures Referred By Janeth phillips Referred To Contact Radiology Diagnoses Loss Visual Procedures CT Head Neck Angiogram with IV Contrast Red Gallego M.D. [address] [place] [address] [facility] Referral ID Status Reason Start Date Expiration Date Visits Re quested Visits Authorized [id number] Closed 07/25/2023 07/24/2024 1 1 Encounter Details Date Type Department Care Team (Latest Contact Info) Description 07/29/2023 1:27 PM CDT - 07/29/2023 11:59 PM CDT Hospital Encounter Department of Radiology, [facility], in [place], [place] [address] [place] [address] Red Gallego M.D. [address] [place] [address] Loss Visual Discharge Disposition: Home or Self Care Social History Tobacco Use Types Packs/Day Years Used Date Smoking Tobacco: Unknown [facility] Utilities Answer Date Recorded In the [...]
--- OUTSIDE RECORDS SUMMARY | 2023-09-27 10:01 | XMS_ITS | Encounter Summary ---
Author Organization [facility] Address [address] [place] [address] Care Team Providers Care Competitive Intelligence Manager Name Role Phone Unavailable Primary Care Provider Unavailabl e Encounter Details Date Type Department Care Team (Latest Contact Info) Description 07/30/2023 9:30 AM CDT Ancillary Procedure Department of Ophthalmology in [place], [place] [address] [place] [address] Red Gallego M.D. [address] [place] [phone] Neuropathy Optic Social History Tobacco Use Types [...] your living situation today? I have a [facility] place to live 07/25/2023 [...]
--- OUTSIDE RECORDS SUMMARY | 2023-09-27 10:01 | XMS_ITS | Encounter Summary ---
Author Organization [facility] Address [address] [place] [address] Care Team Providers Care Licensed Plumber Name Role Phone Unavailable Primary Care Provider Unavailabl e Encounter Details Date Type Department Care Team (Late st Contact Info) Description 07/30/2023 2:10 PM CDT Ancillary Procedure Department of Ophthalmology in [place], [place] [address] [place] [address] Red Gallego M.D. [address] [place] [phone] Social History Tobacco Use Types Packs/Day Years Used Date Smoking Tobacco: Unknown [facility] Utilities Answer Date Recorded In [...] your living situation today? I have a [facility] place to live 07/25/2023 Sex and [...]
--- OUTSIDE RECORDS SUMMARY | 2023-09-27 10:01 | XMS_ITS | Encounter Summary ---
Author Organization [facility] Address [address] [place] [address] Care Team Providers Care Head Of Measurement & Insights Name Role Phone Unavailable Primary Care Provider [...]
--- OUTSIDE RECORDS SUMMARY | 2023-09-27 10:02 | XMS_ITS | Clinical Summary ---
Author Organization [employer] [facility] [employer] [facility] Address [place], [place] [address] Care Team Providers Care Barratte Operator Name Role Phone Marcio Gonzalez MD Primary Care Provider [phone] Allergies Active Allergy Reactions Criticality Noted Date [...] AND FEET ONCE DAILY. 10/20/19 23 Active magnesium oxide (MAG-OX 400) 400 [...] into left eye two times daily. Active fluticasone pbs-jlzdwfsltvex-z ilanterol (Trelegy Ellipta) 100-62.5-25 mcg inhalerIndications :Panlobular emphysema (HC) INHALE 1 PUFF BY MOUTH EVERY DAY 180 Each 08/11/19 24 Active apixaban (ELIQUIS) 5 mg tabletIndications: Paroxysmal atrial fibrillation (HC) Take 1 Tablet (5 mg) by mouth two times daily. 180 Tablet 2 09/18/19 24 Active traMADoL (ULTRAM) 50 mg tabletIndications: Right leg pain TAKE 1 TABLET BY MOUTH DAILY NEEDED FOR WOUND PAIN OR BACK PAIN 30 Tablet 09/21/19 24 Active apixaban (ELIQUIS) 5 mg tabletIndications: Paroxysmal atrial fibrillation (HC) Take 1 Tablet (5 mg) by mouth two times daily. 180 Tablet 2 11/28/19 23 024 Discontinued(Re order (E-cancel not sent)) traMADoL (ULTRAM) 50 mg tabletIndications: Right leg pain TAKE 1 TABLET BY MOUTH DAILY NEEDED FOR WOUND PAIN OR BACK PAIN 30 Tablet 1 07/27/19 24 024 Discontinued Active Problems Problem Noted Date Diagnosed Date History of stroke 07/27/2023 Overview: left MCA territory ischemic stroke, pmh of HLD, tobacco use, morbid obesity, COPD, BRITNEY and chronic back pain who is following up in stroke clinic today. He had presented to [facility] [place] with difficulty finding words and [...] Word Finding Difficulties Recommended follow up at [facility] St[place] [facility]. Speech therapy, OT, and PHYSICAL [...] Problem Noted Date Diagnosed Date Resolved Date intermission coordinator (current) use of anticoagulants 07/07/2009 09/21/2010 Overview: INR Goal Range: 1.8 - 2.5 Encounters Date Type Department Care Team Description 09/20/2023 Refill [facility] [address] [place] [address] Marcio Gonzalez MD Refill Request (Tramadol) 09/18/2023 Telephone [facility] [address] [place] [address] Dave Maya MD Medication Management (eliquis) 08/10/2023 Refill [facility] [address] [facility] [place] [address] Marcio Gonzalez MD Refill Request (Trelegy Ellipta) 08/08/2023 2:00 PM CDT Office Visit [facility] [address] [place] [address] Marcio Gonzalez MD Hospital F/U (Pneumonia /[facility] 07/29 - 08/01/Patient reports doing better) 08/08/2023 Travel 07/31/2023 Orders Only [facility] Scanner 1 scan: (1-Ord) [facility] 07/30/2023 Orders Only [facility] Scanner 1 scan: (1-Ord) [place], XR CHEST 1V PORTABLE, 07/30/2023 07/27/2023 10:30 AM CDT Office Visit [facility] [address] [place] [address] Marcio Gonzalez MD Medication Management (Tramadol follow up//Spouse has questions about atenolol - not a current medication) 07/27/2023 Travel from Last 3 Months Immunizations Name Administration Dates Next Due COVID-19 Vaccine Spikevax (M oderna 50mcg/0.5mL) 12YO+ [id number] Formula PF 01/17/2023 COVID-19 vaccine ([employer] 30mcg/0.3mL) P F, MDV 06/22/2020,06/01/2020 Influenza, [...] Respiratory Rate 18 05/02/2023 10:5 7 AM FLOORING MACHINE FEEDER Oxygen Saturation 92% 08/08/2023 2:12 PM CDT Inhaled Oxygen Concentration - - Weight 134.9 kg (297 lb 4.8 oz) 024 10:38 AM CDT Height 185.4 cm (6' 1) 05/22/2023 9:53 AM FLOORING MACHINE FEEDER Body Mass Index 39.22 05/22/2023 9:53 AM FLOORING MACHINE FEEDER Plan of Treatment Upcoming Encounters Date Type Department Care Team (Late st Contact Info) Description 11/13/2023 10:00 AM CDT Office Visit [facility] [address] [facility] [address] [place] [phone] Dave Maya MD [address] [facility] [address] [place], [place] [id number] Health Maintenance Due Date Last Done Comments Zoster (shingles) series for age 50+ (1 of 2) 12/15/1995 Tetanus booster 03/16/2018 03/16/2008, 06/08, 05/22/[address] (for lung CA) ag e 50-80 11/01/2022 11/01/2021, 04/23/2018 COVID-19 vaccine series ( season) 2023 01/17/2023, 01/10/2022, 08/23/2021, Additional history exists Medicare Wellness for age 65+ 11/09/2023, 02/22/2021, [...] screening for ag e 18-79 Completed 02/08/2022 Medical Devices Implanted Type Area Cloth Measurer Device Identifier Shelf Expiration Date Model / Serial / Lot Tissue Pericardium 0.8x8cm [employer] - [id number] Implanted:Qty: 1 on 02/13/2022 by Kael Hernandez MD at [facility] Cv Implants Right: Groin [employer] 02/27/2022 PFP 0.8X8 / / [id number] Stent Aaa [id number] Excluder [facility] - [id number] Implanted:Qty: 1 on 02/13/2022 by Kael Hernandez MD at [facility] Right: Iliac Artery [employer] 2024 [id number] / [id number] / Stent Aaa [id number] Excluder Ii - [id number] Implanted:Qty: 1 on 02/13/2022 by Kael Hernandez MD at [facility] Right: Iliac Artery [employer] 04/20/2024 [id number] / [id number] / Procedures Procedure Name Priority Date/Time Associated [...] mandie Non-React mandie 02/09/2022 2:56 PM CDT [facility] Comment:Antibodies to HCV no t detected; does not exclude the possibility of exposure to HCV. Blood BLOOD SPECIMEN / Unknown Venipuncture / Unknown 02/08/2022 11:20 AM CDT 02/08/2022 11:27 AM CDT Marcio Gonzalez MD SEND OUTS [facility] [address] [place] [address], [place] * CT CHEST SCREENING LOW DOSE [...] @11/02/2021 8:56:18 AM Pediatric and Body Radiology [email or web address] Narrative 11/02/2021 9:43 AM CDT For Patients: As a result of the 21st Century Cures Act, medical imaging exams and [...] Documents on File Type Date Recorded Patient Plate Keeper Expl anation Treatment Guidelines 02/11/2022 * Full Code (Latest Code Status on File) Date Activated Date Inactivated Comments 02/13/2022 1:00 PM 02/14/2022 5:39 PM Question Answer Comments Code Status Discussion: Reviewed Preferences * Full Code Date Activated Date Inactivated Comments 02/13/2022 6:05 AM 02/13/2022 12:59 PM Question Answer Comments Code Status Discussion: Unable to Assess Preferences, Provider to review later Care Teams Barratte Operator Relationship Specialty Start Date End Date Marc[place] [address] PCP - General Family Practice 12/20/15
== END 2023-09-27 09:59 | disposition home or self-care (01) ==
LOC: WOUND 09:58
PROVIDERS: PCP Family Medicine; Visit Provider Physician Assistant
DX: I87.311 Chronic venous hypertension (idiopathic) with ulcer of right lower extremity (principal); L97.212 Non-pressure chronic ulcer of right calf with fat layer exposed; I89.0 Lymphedema, not elsewhere classified; Z72.0 Tobacco use
CPT/HCPCS: 97597

== ENCOUNTER 2023-10-25 10:00 | Outpatient (CLI) | payer MEDICARE, BC, SELFPAY ==
--- OUTSIDE RECORDS SUMMARY | 2023-10-25 10:02 | XMS_ITS | Clinical Summary ---
Author Organization [facility] Address [address] [place] [address] Care Team Providers Care Stock Analyst Name Role Phone Unavailable Primary Care Provider Unavailabl e Source Comments Patient records contain information from all sites at [facility]. For routine questions regarding patient records, call [phone] during business hours, M-F 8:00 AM - 5:00 PM Central Time. Record requests for emergency care only can be directed to [phone] at any time.[facility] Allergies Active Allergy Reactions Criticality Noted Date [...] 40 mg by mouth at bedtime. Active Trelegy Ellipta 100-62.5-25 mcg inhaler 1 puff daily. Active furosemide (LASIX) 20 mg tablet Take 20 mg by mouth 2 (two) times a day. Active latanoprost (XALATAN) 0.005 % ophthalmic solution Administer 1 drop into both eyes at bedtime. 07/07/2023 Active brimonidine (Alphagan) 0.2 % ophthalmic solution Administer 1 drop into the left eye 3 (three) times a day. 5 mL 3 10/19/2023 Active atropine (Isopto Atropine) 1 % ophthalmic solution Administer 1 drop into the left eye 2 (two) times a day. 2 mL 12 10/19/2023 Active dorzolamide (Trusopt) 2 % ophthalmic solution Administer 1 drop into the left eye 2 (two) times a day. 10 mL 12 10/19/2023 Active brimonidine (ALPHAGAN) 0.2 % ophthalmic solution Administer 1 drop into both eyes 2 (two) times a day. 10/19/2023 Discontinued (Reorder) Hospital, Clinic, or Other Facility Administered Medication Ordered Dose Route Frequency Start Date End Date Status sodium chloride 0.9 % injection 10 mL 10 mL IV As needed 07/25/2023 Active fluorescein 100 mg/mL (10 %) injection 500 mg (AK-FLUOR/FLUORESCE IN) 500 mg IV Once in imaging 07/25/2023 Active fluorescein 100 mg/mL (10 %) injection 500 mg (AK-FLUOR/FLUORESCE IN) 500 mg IV Once in imaging 09/11/2023 Active sodium chloride 0.9 % injection 3 mL 3 mL IV As needed 09/11/2023 Active proparacaine 0.5 % ophthalmic solution 1 drop (Alcaine)Indication s:Glaucoma Neovascular 1 drop left eye As needed 10/23/2023 10/21/2024 Active povidone-iodine 5 % ophthalmic solution 1 drop (Betadine)Indicatio ns:Glaucoma Neovascular 1 drop left eye As needed 10/23/2023 10/21/2024 Active carboxymethylcellul ose 1 % ophthalmic solution 1 drop (TheraTears)Indicat ions:Glaucoma Neovascular 1 drop left eye As needed 10/23/2023 10/21/2024 Active white petrolatum-mineral oil ophthalmic ointment 0.25 inchIndications:Gla ucoma Neovascular 0.25 inch left eye As needed 10/23/2023 10/21/2024 Active balanced salt solution ophthalmic irrigation 30 mL (BSS)Indications:Gl aucoma Neovascular 30 mL left eye As needed 10/23/2023 10/21/2024 Active tetracaine (PF) 0.5 % ophthalmic solution 1 drop (Altacaine)Indicati ons:Glaucoma Neovascular 1 drop left eye As needed 10/23/2023 10/21/2024 Active bevacizumab intraocular injection 1.25 mg (Avastin)Indication s:Glaucoma Neovascular 1.25 mg vtre As needed 10/23/2023 10/23/2023 Ended Active Problems Problem Noted Date Diagnosed Date 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 Arrived Discharge Disposition: Home or Self Care 10/23/2023 2:20 PM CDT Ancillary Procedure Department of Ophthalmology in [place], [place] [address] [place] [address] 10/23/2023 1:51 PM CDT - 10/23/2023 2:53 PM CDT Hospital Encounter Outpatient Procedure Center in [place], [place] [address] [place] [address] Suri Izquierdo M.D. Glaucoma Neovascular Discharge Disposition: Home or Self Care 10/23/2023 12:30 PM CDT Office Visit Department of Ophthalmology in [place], [place] [address] [place] [address] Suri Izquierdo M.D. Occlusion Carotid Artery Left (Primary Dx); Ischemia Retina; Glaucoma Neovascular; Neuropathy Optic Ischemic Bilateral 10/23/2023 Orders Only Department of Ophthalmology in [place], [place] [address] [place] [address] Anabel Lang C.O.A. Glaucoma Neovascular (Primary Dx) 10/19/2023 2:00 PM CDT Ancillary Procedure Department of Ophthalmology in [place], [place] [address] [place] [phone] Suri Izquierdo M.D. Glaucoma Neovascular; Hemorrhage Vitreous Left (HCC) 10/19/2023 10:30 AM CDT Comprehensive Visit Department of Ophthalmology in [place], [place] [address] [place] [phone] Suri Izquierdo M.D. Glaucoma Neovascular (Primary Dx); Hemorrhage Vitreous Left (HCC) 10/19/2023 Orders Only Department of Ophthalmology in [place], [place] [address] [place] [phone] Juan David Cabrales M.D. Glaucoma Neovascular (Primary Dx); Hemorrhage Vitreous Left (HCC) 10/19/2023 Clinical Communication Department of Ophthalmology in [place], [place] [address] [place] [phone] Suri Izquierdo M.D. 10/19/2023 Ancillary Procedure Department of Ophthalmology 10/18/2023 Clinical Communication Department of Ophthalmology in [place], [place] [address] [place] [phone] Provider, Unknown 10/16/2023 Clinical Communication Department of Ophthalmology in [place] [address] [place] [address] Red Gallego M.D. 09/11/2023 Orders Only Department of Ophthalmology in [place], [place] [address] [place] [phone] Anabel Lang C.O.A. Ischemia Retina (Primary Dx) 09/11/2023 Clinical Communication Department of Ophthalmology in [place], [place] [address] [place] [phone] Rachel Collins M.D., Ph.D. 08/01/2023 Clinical Communication Division of elementary secretary in [address] [phone] Prescheduling, Provider 07/31/2023 Clinical Communication Department of Ophthalmology in [place], [place] [address] [place] [phone] Rachel Collins M.D., Ph.D. 07/30/2023 3:20 PM CDT Ancillary Procedure Department of Ophthalmology 07/30/2023 3:15 PM CDT Comprehensive Visit Department of Ophthalmology in [place], [place] [address] [place] [phone] Red Gallego M.D. Ischemia Retina (Primary Dx); Arteritis Temporal (HCC); Glaucoma Neovascular; Intraocular Lens Implant Status Post; Occlusion Carotid Artery Left 07/30/2023 2:10 PM CDT Ancillary Procedure Department of Ophthalmology in [place], [place] [address] [place] [phone] Red Gallego M.D. 07/30/2023 1:25 PM CDT Ancillary Procedure Department of Ophthalmology 07/30/2023 12:00 PM CDT Ancillary Procedure Department of Ophthalmology in [place], [place] [address] [place] [phone] Red Gallego M.D. Neuropathy Optic 07/30/2023 11:15 AM CDT Ancillary Procedure Department of Ophthalmology in [place], [place] [address] [place] [phone] Red Gallego M.D. Neuropathy Optic 07/30/2023 10:45 AM CDT Ancillary Procedure Department of Ophthalmology 07/30/2023 9:40 AM CDT Ancillary Procedure Department of Ophthalmology 07/30/2023 9:30 AM CDT Ancillary Procedure Department of Ophthalmology in [place], [place] [address] [place] [phone] Red Gallego M.D. Neuropathy Optic 07/30/2023 7:50 AM CDT - 07/30/2023 11:59 PM CDT Hospital Encounter Department of Laboratory Medicine and Pathology, [facility], in [place], [place] [address] [place] [phone] Red Gallego M.D. Loss Visual; Defect Visual Field Discharge Disposition: Home or Self Care 07/30/2023 Clinical Communication Department of Ophthalmology in [address] [phone] Provider, Unknown Appt Request 07/30/2023 Ancillary Procedure Department of Ophthalmology 07/30/2023 Episode Changes Department of Ophthalmology in [place], [place] [address] [place] [address] Giana Mancilla 07/29/2023 1:27 PM CDT - 07/29/2023 11:59 PM CDT Hospital Encounter Department of Radiology, [facility], in [place], [place] [address] [place] [address] Red Gallego M.D. Loss Visual Discharge Disposition: Home or Self Care from Last 3 Months Social History Tobacco [...] your living situation today? I have a [facility] place to live 07/25/2023 Sex [...] Upcoming Encounters Date Type Department Care Team (Latest Contact Info) Description 2023 12:15 PM CDT Clinical Communication Virtual Review in [place], [place] 200 [place] [address] 12/17/2023 2:30 PM CDT Ancillary Procedure Department of Ophthalmology in [address] [phone] Red Gallego M.D. [address] [place] [phone] 12/17/2023 3:00 PM CDT Procedure visit Department of Ophthalmology in [address] [address] Rachel Collins M.D., Ph.D. [address] [place] [phone] 12/17/2023 3:15 PM CDT Ancillary Procedure Department of Ophthalmology in [place], [place] [address] [place] [phone] Rachel Collins M.D., Ph.D. [address] [place] [phone] 12/17/2023 3:45 PM CDT Comprehensive Visit Department of Ophthalmology in [place], [place] [address] [place] [phone] Rachel Collins M.D., Ph.D. [address] [place] [phone] 12/18/2023 2:00 PM CDT Ancillary Procedure Department of Ophthalmology in [address] [address] 12/18/2023 2:20 PM CDT Appointment Outpatient Procedure Center in [address] [phone] Rachel Collins M.D., Ph.D. [address] [place] [phone] 12/19/2023 10:00 AM CDT Comprehensive Visit Department of Neurology in [address] [phone] Jojo Barrientos M.D. [address] [place] [phone] 12/21/2023 9:00 AM CDT Ancillary Procedure Department of Ophthalmology in [address] [address] 12/21/2023 9:30 AM CDT Procedure visit Department of Ophthalmology in [address] [phone] Rachel Collins M.D., Ph.D. [address] [place] [phone] Health Maintenance Due Date Last Done Comments Hepatitis C Screening 1945 Zoster Vaccines (1 of 2) 12/15/1995 DTaP,Tdap,and Td Vaccines (3 - Td or Tdap) 03/16/2018 03/16/2008, 07/04/2006 Depression Screening (Annual PHQ-2) 04/09/2023 COVID-19 Vaccine (7 - 2022-2 4 season) 2023 01/17/2023, 01/10/2022, 08/23/2021, Additional history exists Influenza Vaccine (#1) 2024 , 01/10/2022, 02/22/2021, Additional history exists Potassium Level 03/27/2024 03/27/2023, 11/0 11/2021, 02/13/2022, Additional history exists Sodium Level 03/27/2024 03/27/2023, 11/0 11/2021, 02/13/2022, Additional history exists Creatinine Level (Kidney Fun ction Test) 07/29/2024 07/30/2023, 03/27/2023, 02/14/2022, Additional history exists Pneumococcal vaccine (65+ years) Completed 05/19/2015, 06/05/2013, 03/14/2000 Abdominal Aortic Aneurysm (A AA) Screen Discontinued 07/30/2018, 01/11/2016 Fall Risk Screen (Annual) Completed 10/23/2023 Medical Devices Implanted Type Area Stitch Bonding Machine Tender Device Identifier Shelf Expiration Date Model / Serial / Lot J J Sig Patella Oval 41 - Briones [id number] Implanted:Qty: 1 on 10/23/2011 Knee Implant Other/Legacy - See Implant Description [employer] Description:Device Manufactu rer - [employer]. Body Location - Other. Left. Device Status Text - [id number] [id number]. Depuy-Insert Stabilized Sz 5 12.5mm - Briones [id number] Implanted:Qty: 1 on 10/23/2011 Knee Implant Other/Legacy - See Implant Description [employer] Description:Device Manufactu rer - [employer]. Body Location - Other. Left. Device Status Text - [id number] [id number]. Depuy-Tib Tray Mod Cement Cocr Sz5 - Briones [id number] Implanted:Qty: 1 on 10/23/2011 Knee Implant Other/Legacy - See Implant Description [employer] Description:Device Manufactu rer - [employer]. Body Location - Other. Left. Device Status Text - [id number] [id number]. Sigma Post Stab.W Lug Fem Sz 6 Lt - Briones [id number] Implanted:Qty: 1 on 10/23/2011 Knee Implant Other/Legacy - See Implant Description [employer] Description:Device Manufactu rer - [employer]. Body Location - Other. Left. Device Status Text - KNEE [id number]. Cement Bone Large - Briones [id number] Implanted:Qty: 2 on 10/23/2011 Misc Other [employer] Description:Device Manufactu rer - Beverly Amarilis.. Device Status Text - [id number]. Procedures Procedure Name Priority Date/Time Associated Diagnosis Comments INTRAVITREAL INJECTION, PHARMACOLOGIC AGENT - OS - LEFT EYE Routine 10/23/2023 2:54 PM CDT Glaucoma Neovascular INTRAVITREAL INJECTION, PHARMACOLOGIC AGENT - OS - LEFT EYE Routine 10/23/2023 1:51 PM CDT Glaucoma Neovascular B SCAN - OS - LEFT EYE Routine 10/19/2023 3:27 PM CDT Glaucoma Neovascular Hemorrhage Vitreous Left (HCC) OPHTHALMOLOGY IMAGE EXAM Routine 10/19/2023 12:00 AM CDT OPHTHALMOLOGY IMAGE EXAM Routine 07/30/2023 3:20 PM [...] outpatients) 07/29/2023 2:33 PM CDT Loss Visual EXTI BASIC METABOLIC PANEL, S/P Routine 03/27/2023 3:[address] ABDOMEN PELVIS WITH IV CONTRAST RAD - Routine (most inpatients and all outpatients) 07/30/2018 11:17 AM CDT from Last 3 Months or Most Recently Relevant to Health Maintenance Results * Intravitreal Injection, Pharmacologic Agent - OS - Left Eye (10/23/2023 2:54 PM CDT) Narrative Shelia Laughlin M.D. - 10/23/2023 3:22 PM CDT Pre-Procedure Verification Pre-procedure verification conducted to verify correct patient identity, procedure to be performed and, as applicable, correct side and site. Patient ID band validated and present. Patient consent obtained. 10/23/2023. Time Out Confirmed correct patient, procedure, site, and patient consented. Anesthesia Topical anesthesia was used. Pre/Post Procedure prep and meds used were Celluvisc 1-10 drops, Lidocaine Gel 3.5% 1-10 drops, Povidone 5% 1-10 drops, Povidone 10% swabs x 3 to lids and lashes, Proparacaine 0.5% 1-10 drops, Tetracaine 0.5% 1-10 drops. Procedure Details Injection: 1.25 mg bevacizumab 25 mg/mL ??Route: intravitreal, Site: Left Eye ??[facility]: [id number] Balanced salt solution irrigation to injected eye after the injection was Done. Hand motion was not present. Count fingers was not correct. Reviewed instructions and patient verbalizes understanding. Notes Patient oriented to outpatient procedure center. ??Reviewed process for scheduled procedure, and pain management including pain scale. Patient declines written post-procedure material or previously received brochure. ?? Information reviewed and understanding assessed by teach-back. ??Follow-up appointments discussed and return schedule given if requested. MEHRDAD [id number] Exp 01/06/[address] [facility] PRO CEDURES * B-Scan Ultrasound - OS - Left Eye (10/19/2023 3:27 PM CDT) Narrative OPHTHALMOLGY NON-IMAGING ORDERS - 10/19/2023 8:17 PM CDT Quality was good. Notes 10/19/2023 B-scan Left Eye: Moderate to dense vitreous opacities layered inferiorly and possible traction near 430PE. Retina appears grossly attached, no mass noted. Suri Izquierdo M.D. [facility] Organization Address City/State/ZIP Co de Phone Number OPHTHALMOLGY NON-IMAGING ORDERS * Eyes US-Eye [id number] Image Exam (10/19/2023 12:00 AM CDT) Only the most recent of6 resultswithin the time period is included. Narrative IIMS - 10/19/2023 3:24 PM CDT This order has been created and auto-finalized to support the import of images acquired without order. The clinical documentation to support these images can be found on the encounter that produced images. Provider Not In System IMG NON RAD IMAGI NG PROCEDURES Performing Organization Address [facility] de Phone Number IIMS NA * Optical Coherence Tomography - Optic Nerve - OU - Both Eyes (07/30/2023 1:36 PM CDT) Narrative OPHTHALMOLOGY IMAGING EXAM - 07/30/2023 1:41 PM CDT OCT device used was [employer] . Notes [facility] - Patient would not allow us to complete exam. Managed to get most scans done on the right eye. No left eye scans. The interpretation report for this test can be found in the Testing section of the chart note dated 07/30/2023 Red Gallego M.D. OPHTH TOMOGRAPHY Performing Organization Address [facility] de Phone Number OPHTHALMOLOGY IMAGING EXAM [...] Gallego M.D. OPHTH PHOTOGRAPHY Performing Organization Address [facility] de Phone Number OPHTHALMOLOGY IMAGING EXAM [...] Sedimentation Rate (07/30/2023 8:13 AM CDT) Pathologist [facility] Sedimentation Rate, B 42(H) 3 - 28 mm/h 07/30/2023 10:11 AM CDT DTL Blood (Blood, Venous) 07/30/2023 8:13 AM CDT 07/30/2023 8:41 AM CDT Red Gallego M.D. LAB BLOOD ADD-ON Performing Organization Address City/[facility]/ZIP Co de Phone Number [address] [place] [address] * (ABNORMAL) CBC with Differential, Blood (07/30/2023 8:13 AM CDT) [facility] Hemoglobin 10.9(L) 13.2 - 16.6 [...] LAB BLOOD ADD-ON Performing Organization Address City/[facility]/ZIP Co de Phone Number [facility] [place] [address] 200 [place] [address] * (ABNORMAL) CRP (C-Reactive Protein) (07/30/2023 8:13 AM CDT) C-Reactive Protein (CRP), S 33.6(H) <5.0 mg/L 07/30/2023 9:14 AM CDT DTL Blood (Blood, Venous) 07/30/2023 8:13 AM CDT 07/30/2023 8:52 AM CDT Red Gallego M.D. LAB BLOOD ADD-ON [facility] [place] [address] [facility] 200 [place] [address] * Creatinine with Estimated GFR (07/30/2023 8:13 AM CDT) Creatinine 1.15 0.74 - 1.35 mg/dL 07/30/2023 9:14 AM CDT DTL Estimated GFR (eGFR) 66 >=60 mL/min/BSA 07/30/2023 9:14 AM CDT DTL Comment: Estimated GFR calculated using the 2020 CKD_EPI creatinine equation. Blood (Blood, Venous) 07/30/2023 8:13 AM CDT 07/30/2023 8:52 AM CDT Red Gallego M.D. LAB BLOOD ADD-ON [facility] [place] 200 [place] [address], [facility] [address] [place] [address] * CT Head Neck Angiogram with IV Contrast (07/29/2023 2:33 PM CDT) Anatomical Region Laterality Modality Head and Neck, Neuroradiolog y RST LOS, Neuroradiology ARKassandra LOS, Neuroradiology FLA LOS N/A Computed Tomography, [...] chronic. Red Gallego M.D. IMG CT PROCEDURES from Last 3 Months or Most Recently Relevant to Health Maintenance
--- OUTSIDE RECORDS SUMMARY | 2023-10-25 10:03 | XMS_ITS | Encounter Summary ---
Author Organization [facility] Address [address] [place] [address] Care Team Providers Care Skin Diving Teacher Name Role Phone Unavailable Primary Care Provider Unavailabl e Encounter Details Date Type Department Care Team (Latest Contact Info) Description 10/18/2023 Clinical Communication Department of Ophthalmology in [place], [place] [address] [place] [address] Provider, Unknown Social History Tobacco Use Types Packs/Day Years Used Date Smoking Tobacco: Unknown [facility] Utilities Answer Date Recorded In the [...] living situation today? I have a [facility] place to live 07/25/2023 Sex [...] PM CDT Clinical Communication Virtual Review in [place], [place] 200 [place] [address] 12/17/2023 2:30 PM CDT Ancillary Procedure Department of Ophthalmology in [address] [address] Red Gallego M.D. [address] [place] [phone] 12/17/2023 3:00 PM CDT Procedure visit Department of Ophthalmology in [address] [address] Rachel Collins M.D., Ph.D. [address] [place] [phone] 12/17/2023 3:15 PM CDT Ancillary Procedure Department of Ophthalmology in [address] [address] Rachel Collins M.D., Ph.D. [address] [place] [phone] 12/17/2023 3:45 PM CDT Comprehensive Visit Department of Ophthalmology in [place], [place] [address] [place] [phone] Rachel Collins M.D., Ph.D. [address] [place] [phone] 12/18/2023 2:00 PM CDT Ancillary Procedure Department of Ophthalmology in [place], [place] [address] [place] [phone] 12/18/2023 2:20 PM CDT Appointment Outpatient Procedure Center in [place], [place] [address] [place] [phone] Rachel Collins M.D., Ph.D. [address] [place] [phone] 12/19/2023 10:00 AM CDT Comprehensive Visit Department of Neurology in [place], [place] [address] [place] [phone] Jojo Barrientos M.D. [address] [place] [phone] 12/21/2023 9:00 AM CDT Ancillary Procedure Department of Ophthalmology in [address] [address] 12/21/2023 9:30 AM CDT Procedure visit Department of Ophthalmology in [place], [place] [address] [place] [phone] Rachel Collins M.D., Ph.D. [address] [place] [phone] documented as of this encounter Visit Diagnoses Not on filedocumented in this encounter
--- OUTSIDE RECORDS SUMMARY | 2023-10-25 10:03 | XMS_ITS ---
Author Organization [facility] Address [address] [place] [address] Care Team Providers Care Property Controller Name Role Phone Unavailable Unavailable Unavailable Surgery Details Not on file Complications Check Surgery Details section. Procedure Estimated Blood Loss Check Surgery Details section. Procedure Findings Check Surgery Details section. Procedure Specimens Taken Check Surgery Details section.
--- OUTSIDE RECORDS SUMMARY | 2023-10-25 10:03 | XMS_ITS | Encounter Summary ---
Author Organization [facility] Address [address] [place] [address] Care Team Providers Care Vapor Coater Name Role Phone Unavailable Primary Care Provider Unavailabl e Encounter Details Date Type Department Care Team (Latest Contact Info) Description 09/11/2023 Clinical Communication Department of Ophthalmology in [place], [place] [address] [place] [address] Rachel Collins M.D., Ph.D. [address] [place] [address] Social History Tobacco Use Types Packs/Day Years Used Date Smoking Tobacco: Unknown [facility] Utilities Answer Date Recorded In the [...] your living situation today? I have a [facility] place to live 07/25/2023 Sex and Gender Information Value Date Recorded Sex Assigned at Male 07/25/2023 8:23 PM CDT Gender Identity Male 07/25/2023 8:23 PM CDT Sexual Orientation Straight 07/25/2023 8: 23 PM CDT documented as of this encounter Plan of Treatment Upcoming Encounters Date Type Department Care Team (Latest Contact Info) Description 2023 12:15 PM CDT Clinical Communication Virtual Review in [place], [place] 200 [place] [address] 12/17/2023 2:30 PM CDT Ancillary Procedure Department of Ophthalmology in [address] [address] Red Gallego M.D. [address] [place] [phone] 12/17/2023 3:00 PM CDT Procedure visit Department of Ophthalmology in [address] [address] Rachel Collins M.D., Ph.D. [address] [place] [phone] 12/17/2023 3:15 PM CDT Ancillary Procedure Department of Ophthalmology in [address] [address] Rachel Collins M.D., Ph.D. [address] [place] [phone] 12/17/2023 3:45 PM CDT Comprehensive Visit Department of Ophthalmology in [place], [place] [address] [place] [phone] Rachel Collins M.D., Ph.D. [address] [place] [phone] 12/18/2023 2:00 PM CDT Ancillary Procedure Department of Ophthalmology in [place], [place] [address] [place] [phone] 12/18/2023 2:20 PM CDT Appointment Outpatient Procedure Center in [address] [address] Rachel Collins M.D., Ph.D. [address] [place] [phone] 12/19/2023 10:00 AM CDT Comprehensive Visit Department of Neurology in [place], [place] [address] [place] [phone] Jojo Barrientos M.D. [address] [place] [phone] 12/21/2023 9:00 AM CDT Ancillary Procedure Department of Ophthalmology in [address] [phone] 12/21/2023 9:30 AM CDT Procedure visit Department of Ophthalmology in [address] [address] Rachel Collins M.D., Ph.D. [address] [place] [phone] documented as of this encounter Visit Diagnoses Not on filedocumented in this encounter
--- OUTSIDE RECORDS SUMMARY | 2023-10-25 10:03 | XMS_ITS | Encounter Summary ---
Author Organization [facility] Address [address] [place] [address] Care Team Providers Care Park Attendant Name Role Phone Unavailable Primary Care Provider Unavailabl e Encounter Details Date Type Department Care Team (Late st Contact Info) Description 10/23/2023 2:20 PM CDT Ancillary Procedure Department of Ophthalmology in [place], [place] [address] [place] [address] Social History Tobacco Use Types Packs/Day Years Used Date Smoking Tobacco: Unknown [facility] Utilities Answer Date Recorded In the [...] your living situation today? I have a [facility] place to live 07/25/2023 Sex [...] PM CDT Clinical Communication Virtual Review in [address] [address] 12/17/2023 2:30 PM CDT Ancillary Procedure Department of Ophthalmology in [address] [address] Red Gallego M.D. [address] [place] [phone] 12/17/2023 3:00 PM CDT Procedure visit Department of Ophthalmology in [address] [address] Rachel Collins M.D., Ph.D. [address] [place] [phone] 12/17/2023 3:15 PM CDT Ancillary Procedure Department of Ophthalmology in [address] [address] Rachel Collins M.D., Ph.D. [address] [place] [phone] 12/17/2023 3:45 PM CDT Comprehensive Visit Department of Ophthalmology in [place], [place] [address] [place] [phone] Rachel Collins M.D., Ph.D. [address] [place] [phone] 12/18/2023 2:00 PM CDT Ancillary Procedure Department of Ophthalmology in [place], [place] [address] [place] [phone] 12/18/2023 2:20 PM CDT Appointment Outpatient Procedure Center in [place], [place] [address] [place] [phone] Rachel Collins M.D., Ph.D. [address] [place] [phone] 12/19/2023 10:00 AM CDT Comprehensive Visit Department of Neurology in [place], [place] [address] [place] [phone] Jojo Barrientos M.D. [address] [place] [phone] 12/21/2023 9:00 AM CDT Ancillary Procedure Department of Ophthalmology in [address] [phone] 12/21/2023 9:30 AM CDT Procedure visit Department of Ophthalmology in [address] [address] Rachel Collins M.D., Ph.D. [address] [place] [phone] documented as of this encounter Visit Diagnoses Not on filedocumented in this encounter
--- OUTSIDE RECORDS SUMMARY | 2023-10-25 10:03 | XMS_ITS | Encounter Summary ---
Author Organization [facility] Address [address] [place] [address] Care Team Providers Care Sheet Sorter Name Role Phone Unavailable Primary Care Provider Unavailabl e Reason for Referral * Outpatient (Routine) - Authorized Specialty Diagnoses / Procedures Referred By Janeth phillips Referred To Contact Vascular Medicine Diagnoses Glaucoma Neovascular Suri Izquierdo M.D. [address] [place] [address] [facility] Referral ID Status Reason Start Date Expiration Date V isits Requested Visits Authorized [id number] Authorized 10/19/2023 04/19/2025 1 1 * Outpatient (Routine) - Closed Specialty Diagnoses / Procedures Referred By Janeth phillips Referred To Contact Ophthalmology Suri Izquierdo M.D. [address] [place] [address] [facility] Referral ID Status Reason Start Date Expiration Date Visits Re quested Visits Authorized [id number] Closed 10/19/2023 04/19/2025 1 1 Reason for Visit * Appointment Request (Routine) - Closed Specialty Diagnoses / Procedures Referred By Janeth phillips Referred To Contact Ophthalmology Referral ID Status Reason Start Date Expiration Date Visits Re quested Visits Authorized [id number] Closed 10/18/2023 10/17/2024 1 1 Encounter Details Date Type Department Care Team (Latest Contact Info) Description 10/19/2023 10:30 AM CDT Comprehensive Visit Department of Ophthalmology in [place], [place] [address] [place] [address] Suri Izquierdo M.D. [address] [place] [address] Glaucoma Neovascular (Primary Dx); Hemorrhage Vitreous Left (HCC) Social History Tobacco Use Types Packs/Day Years [...] PM CDT documented as of this encounter Consult Notes * Suri Izquierdo M.D. - 10/19/2023 10:30 AM CDT CHIEF COMPLAINT Vision loss and pain, left eye HPI: Andrew Shields is a 77 y.o. y.o. male presenting today for evaluation of left eye vision loss and pain. He was seen by Dr. Gallego in July 2023 for similar symptoms, and reported having gradual visionloss of the left eye and left periorbital pain dating back to March 2023. At that time, visual acuity in the left eye was count fingers and anterior segment exam was notable for neovascularizationof the iris and angle with hemorrhage in the angle of the left eye. Dilated fundus exam showed moderate pallor of the optic disc without edema, scattered dot hemorrhages in the macula, and significant left arterial attenuation with dropout of the superotemporal arcade. The patient refused visual field testing on his left eye, and OCT showed rNFL thinning with poor nerve registration (and the patient refused additional images). 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 He was also advised to pursue additional retinal imaging with OCT and fluorescein angiogram that day, but unfortunately refused these tests. Dr. Gallego also discussed this patient's case with neuroradiology, and overall thought that there was no anterograde blood flow to the left ophthalmic artery, consistent with ocular ischemic syndrome. Records were forwarded to his local vascular specialist for further follow-up. The patient was started on latanoprost daily in both eyes, and brimonidine twice daily in the left eye. He was scheduled to see retina for laser and injection treatment of the neovascular glaucoma, but unfortunately became ill and was unable to attend these appointments. He unfortunately has also been unable to set up follow up with his vascular specialist yet. Since he was last seen 3 months ago, he reports that his vision has been subjectively stable in theleft eye and he has not able to see much out of it except for some light. He is here with his and daughter. He reports that he still has ongoing pain in his left eye that shoots above his brow. His family reports that 3 days ago, he was awoken by severe pain and clear liquid gushing out of theinner corner of his eye. Denies any trauma. No history of diabetes. POH - Cataract surgery OU ASSESSMENT: # Neovascluar glaucoma, left eye # Likely vitreous hemorrhage, left eye # Ocular ischemic syndrome, left eye # Left ICA occlusion IMPRESSION: His exam today shows progression of the neovascular glaucoma of the left eye, with vision now limited to light perception. His pressure was elevated at 27, and though not significantly elevated, is still causing him daily discomfort. Slit-lamp exam of the left eye revealed neovascularization of thecornea, 1.5 mm hyphema, and neovascularization of the iris and angle. Given that there was no view of the back of the eye, B-scan was obtained and showed moderate to dense vitreous opacities layered inferiorly, possible traction, and the retina appeared to be grossly attached. He was previously scheduled for retina evaluation with plans to likely undergo laser and injection therapy in the left eye, but unfortunately could not get this done secondary to hospitalizations andother general medical problems. We discussed the importance of adequately treating the neovascularization in his left eye with anti VEGF injections and likely subsequent panretinal photocoagulation. Furthermore, it is important to treat the underlying cause of the neovascular glaucoma, which we suspect is ocular ischemic syndrome secondary to his left ICA occlusion. I highly encouraged him to follow-up with his local vascular specialist, and have also placed a referral for vascular medicine here at [facility] if it is more convenient to group his appointments here together. We have placed an order for Avastin in the left eye, to be completed within the next week. Please see the retinal injection plan below. To better control his pressure, we will increase the brimonidine to 3 times daily, and add dorzolamide twice daily (cannot use Cosopt due to his COPD inhaler) to his left eye. Due to the hyphema, we will start atropine as well. Given that his pressure is elevated and we are attempting to better control it, we will hold off on prednisolone in the meantime. Monocular precautions were discussed, including wearing spectacles with safety frames to protect his good eye from external trauma. I will see the patient back in clinic early next week for follow up. PLAN: - Continue latanoprost daily, both eyes - Increase brimonidine to 3 times daily, left eye - Dorzolamide twice daily, left eye - Atropine twice daily, left eye - Monocular precautions discussed, including eye protection - Follow-up with vascular medicine within the next month - Avastin injection within 1 week - RTC in 3-5 days Retinal Injection Plan 10/19/2023 Left Eye: Avastin Left eye for Other: Neovascular glaucoma within 1 week. Follow-up for 3 more injections of Avastin in the left eye every 4 - weeks. Followup: 4 - 5 weeks after last injection with OCT macula. Injection Location: [facility] injection slot in [place]? Left eye Staffed with Dr. Herrera. Patient counseling was performed. All questions were answered and the patient voiced agreement withthe plan. Return precautions discussed. Seen and discussed with Dr. Sanchez. Discussed with Dr. Herrera as well. Suri Izquierdo M.D. PGY-2 Ophthalmology documented in this encounter Plan of Treatment Upcoming Encounters Date Type Department Care Team (Latest Contact Info) Description 2023 12:15 PM CDT Clinical Communication Virtual Review in [address] [address] 12/17/2023 2:30 PM CDT Ancillary Procedure Department of Ophthalmology in [address] [address] Red Gallego M.D. [address] [place] [phone] 12/17/2023 3:00 PM CDT Procedure visit Department of Ophthalmology in [address] [address] Rachel Collins M.D., Ph.D. [address] [place] [phone] 12/17/2023 3:15 PM CDT Ancillary Procedure Department of Ophthalmology in [address] [place] [address] Rachel Collins M.D., Ph.D. [address] [place] [phone] 12/17/2023 3:45 PM CDT Comprehensive Visit Department of Ophthalmology in [place], [place] [address] [place] [phone] Rachel Collins M.D., Ph.D. [address] [place] [phone] 12/18/2023 2:00 PM CDT Ancillary Procedure Department of Ophthalmology in [address] [phone] 12/18/2023 2:20 PM CDT Appointment Outpatient Procedure Center in [address] [phone] Rachel Collins M.D., Ph.D. [address] [place] [phone] 12/19/2023 10:00 AM CDT Comprehensive Visit Department of Neurology in [address] [address] Jojo Barrientos M.D. [address] [place] [phone] 12/21/2023 9:00 AM CDT Ancillary Procedure Department of Ophthalmology in [address] [address] 12/21/2023 9:30 AM CDT Procedure visit Department of Ophthalmology in [address] [phone] Rachel Collins M.D., Ph.D. [address] [place] [phone] (work) Scheduled Referrals Name Type Priority Associated Diagnoses Order Schedule Ophthalmology office visit (clinic) Outpatient Referral Routine Expected: 10/23/2023, Expires: 01/18/2025 Vascular Medicine - General consult (clinic) Outpatient Referral Routine Glaucoma Neovascular Expected: 10/23/2023, Expires: 01/18/2025 documented as of this encounter Results * B-Scan Ultrasound - OS - Left Eye (10/19/2023 3:27 PM CDT) Narrative OPHTHALMOLGY NON-IMAGING ORDERS - 10/19/2023 8:17 PM CDT Quality was good. Notes 10/19/2023 B-scan Left Eye: Moderate to dense vitreous opacities layered inferiorly and possible traction near 430PE. Retina appears grossly attached, no mass noted. [facility] OPHTHAL[facility]GY NON-IMAGING ORDERS documented in this encounter Visit Diagnoses Diagnosis Glaucoma Neovascular- Primary Hemorrhage Vitreous Left (HCC) Glaucoma Neovascular Hemorrhage Vitreous Left (HCC) documented in this encounter
--- OUTSIDE RECORDS SUMMARY | 2023-10-25 10:03 | XMS_ITS | Encounter Summary ---
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 I have a [facility] place to live 07/25/2023 Sex and Gender Information Value Date Recorded Sex Assigned at Male 07/25/2023 8:23 PM CDT Gender Identity Male 07/25/2023 8:23 PM CDT Sexual Orientation Straight 07/25/2023 8: 23 PM CDT documented as of this encounter Plan of Treatment Upcoming Encounters Date Type Department Care Team (Latest Contact Info) Description 2023 12:15 PM CDT Clinical Communication Virtual Review in [address] [address] 12/17/2023 2:30 PM CDT Ancillary Procedure Department of Ophthalmology in [address] [address] Red Gallego M.D. [address] [place] [phone] 12/17/2023 3:00 PM CDT Procedure visit Department of Ophthalmology in [address] [address] Rachel Collins M.D., Ph.D. [address] [place] [phone] 12/17/2023 3:15 PM CDT Ancillary Procedure Department of Ophthalmology in [address] [address] Rachel Collins M.D., Ph.D. [address] [place] [phone] 12/17/2023 3:45 PM CDT Comprehensive Visit Department of Ophthalmology in [place], [place] [address] [place] [phone] Rachel Collins M.D., Ph.D. [address] [place] [phone] 12/18/2023 2:00 PM CDT Ancillary Procedure Department of Ophthalmology in [place], [place] [address] [place] [phone] 12/18/2023 2:20 PM CDT Appointment Outpatient Procedure Center in [place], [place] [address] [place] [phone] Rachel Collins M.D., Ph.D. [address] [place] [phone] 12/19/2023 10:00 AM CDT Comprehensive Visit Department of Neurology in [place], [place] [address] [place] [phone] Jojo Barrientos M.D. [address] [place] [phone] 12/21/2023 9:00 AM CDT Ancillary Procedure Department of Ophthalmology in [address] [address] 12/21/2023 9:30 AM CDT Procedure visit Department of Ophthalmology in [address] [address] Rachel Collins M.D., Ph.D. [address] [place] [phone] documented as of this encounter Visit Diagnoses Not on filedocumented in this encounter
--- OUTSIDE RECORDS SUMMARY | 2023-10-25 10:03 | XMS_ITS | Referral Summary ---
Author Organization [facility] Address [address] [place] [address] Care Team Providers Care Manager Beauty Name Role Phone Unavailable Primary Care Provider Unavailabl e Source Comments Patient records contain information from all sites at [facility]. For routine questions regarding patient records, call [phone] during business hours, M-F 8:00 AM - 5:00 PM Central Time. Record requests for emergency care only can be directed to [phone] at any time.[facility] Encounters Date Type Department Care Team Description 10/23/2023 2:54 PM CDT - 10/23/2023 11:59 PM CDT Hospital Encounter Outpatient Procedure Center in [place], [place] [address] [place] [phone] Shelia Laughlin M.D. Arrived Discharge Disposition: Home or Self Care 10/23/2023 Orders Only Department of Ophthalmology in [place], [place] [address] [place] [address] Anabel Lang C.OAustyn Glaucoma Neovascular (Primary Dx) 10/23/2023 2:20 PM CDT Ancillary Procedure Department of Ophthalmology in [place], [place] [address] [place] [address] 10/23/2023 1:51 PM CDT - 10/23/2023 2:53 PM CDT Hospital Encounter Outpatient Procedure Center in [place], [place] [address] [place] [address] Suri Izquierdo M.D. Glaucoma Neovascular Discharge Disposition: Home or Self Care 10/23/2023 12:30 PM CDT Office Visit Department of Ophthalmology in [place], [place] [address] [place] [address] Suri Izquierdo M.D. Occlusion Carotid Artery Left (Primary Dx); Ischemia Retina; Glaucoma Neovascular; Neuropathy Optic Ischemic Bilateral 10/19/2023 Orders Only Department of Ophthalmology in [place], [place] [address] [place] [address] Juan David Cabrales M.D. Glaucoma Neovascular (Primary Dx); Hemorrhage Vitreous Left (HCC) 10/19/2023 Clinical Communication Department of Ophthalmology in [place], [place] [address] [place] [address] Suri Izquierdo M.D. 10/19/2023 Ancillary Procedure Department of Ophthalmology 10/19/2023 2:00 PM CDT Ancillary Procedure Department of Ophthalmology in [place], [place] [address] [place] [address] Suri Izquierdo M.D. Glaucoma Neovascular; Hemorrhage Vitreous Left (HCC) 10/19/2023 10:30 AM CDT Comprehensive Visit Department of Ophthalmology in [place], [place] [address] [place] [address] Suri Izquierdo M.D. Glaucoma Neovascular (Primary Dx); Hemorrhage Vitreous Left (HCC) 10/18/2023 Clinical Communication Department of Ophthalmology in [place], [place] [address] [place] [phone] Provider, Unknown 10/16/2023 Clinical Communication Department of Ophthalmology in [place], [place] [address] [place] [address] Red Gallego M.D. 09/11/2023 Orders Only Department of Ophthalmology in [place], [place] [address] [place] [phone] Anabel Lang C.O.A. Ischemia Retina (Primary Dx) 09/11/2023 Clinical Communication Department of Ophthalmology in [place], [place] [address] [place] [address] Rachel Collins M.D., Ph.D. 08/01/2023 Clinical Communication Division of tool crib clerk in [place], [place] [address] [place] [phone] Prescheduling, Provider 07/31/2023 Clinical Communication Department of Ophthalmology in [place], [place] [address] [place] [phone] Rachel Collins M.D., Ph.D. 07/30/2023 3:20 PM CDT Ancillary Procedure Department of Ophthalmology 07/30/2023 Clinical Communication Department of Ophthalmology in [place], [place] [address] [place] [phone] Provider, Unknown Appt Request 07/30/2023 1:25 PM CDT Ancillary Procedure Department of Ophthalmology 07/30/2023 Ancillary Procedure Department of Ophthalmology 07/30/2023 Episode Changes Department of Ophthalmology in [place], [place] [address] [place] [phone] Giana Mancilla 07/30/2023 10:45 AM CDT Ancillary Procedure Department of Ophthalmology 07/30/2023 9:40 AM CDT Ancillary Procedure Department of Ophthalmology 07/30/2023 7:50 AM CDT - 07/30/2023 11:59 PM CDT Hospital Encounter Department of Laboratory Medicine and Pathology, [facility] in [place], [place] [address] [place] [phone] Red Gallego M.D. Loss Visual; Defect Visual Field Discharge Disposition: Home or Self Care 07/30/2023 2:10 PM CDT Ancillary Procedure Department of Ophthalmology in [address] [phone] Red Gallego M.D. 07/30/2023 12:00 PM CDT Ancillary Procedure Department of Ophthalmology in [address] [address] Red Gallego M.D. Neuropathy Optic 07/30/2023 9:30 AM CDT Ancillary Procedure Department of Ophthalmology in [address] [phone] Red Gallego M.D. Neuropathy Optic 07/30/2023 11:15 AM CDT Ancillary Procedure Department of Ophthalmology in [place], [place] [address] [place] [address] Red Gallego M.D. Neuropathy Optic 07/30/2023 3:15 PM CDT Comprehensive Visit Department of Ophthalmology in [place], [place] [address] [place] [address] Red Gallego M.D. Ischemia Retina (Primary Dx); Arteritis Temporal (HCC); Glaucoma Neovascular; Intraocular Lens Implant Status Post; Occlusion Carotid Artery Left 07/29/2023 1:27 PM CDT - 07/29/2023 11:59 PM CDT Hospital Encounter Department of Radiology, [facility], in [place], [place] [address] [place] [address] Red Gallego M.D. Loss Visual Discharge Disposition: Home or Self Care from Last 3 Months Allergies Active Allergy [...] have a [facility] to live 07/25/2023 Sex and Gender [...] PM CDT Clinical Communication Virtual Review in [place], [place] 200 [place] [address] 12/17/2023 2:30 PM CDT Ancillary Procedure Department of Ophthalmology in [address] [address] Red Gallego M.D. [address] [place] [phone] 12/17/2023 3:00 PM CDT Procedure visit Department of Ophthalmology in [address] [address] Rachel Collins M.D., Ph.D. [address] [place] [phone] 12/17/2023 3:15 PM CDT Ancillary Procedure Department of Ophthalmology in [place], [place] [address] [place] [phone] Rachel Collins M.D., Ph.D. [address] [place] [phone] 12/17/2023 3:45 PM CDT Comprehensive Visit Department of Ophthalmology in [place], [place] [address] [place] [phone] Rachel Collins M.D., Ph.D. [address] [place] [phone] 12/18/2023 2:00 PM CDT Ancillary Procedure Department of Ophthalmology in [address] [address] 12/18/2023 2:20 PM CDT Appointment Outpatient Procedure Center in [address] [address] Rachel Collins M.D., Ph.D. [address] [place] [phone] 12/19/2023 10:00 AM CDT Comprehensive Visit Department of Neurology in [address] [phone] Jojo Barrientos M.D. [address] [place] [phone] 12/21/2023 9:00 AM CDT Ancillary Procedure Department of Ophthalmology in [address] [address] 12/21/2023 9:30 AM CDT Procedure visit Department of Ophthalmology in [address] [phone] Rachel Collins M.D., Ph.D. [address] [place] [phone] Medical Devices Implanted Type Area Leak Detection Engineer Device Identifier Shelf Expiration Date Model / Serial / Lot J J Sig Patella Oval 41 - Briones [id number] Implanted:Qty: 1 on 10/23/2011 Knee Implant Other/Legacy - See Implant Description [employer] Description:Device Manufactu rer - [employer]. Body Location - Other. Left. Device Status Text - [id number] [id number]. Depuy-Insert Stabilized Sz 5 12.5mm - Briones [id number] Implanted:Qty: 1 on 10/23/2011 Knee Implant Other/Legacy - See Implant Description [employer] Description:Device Manufactu rer - [employer]. Body Location - Other. Left. Device Status Text - [id number] [id number]. Depuy-Tib Tray Mod Cement Cocr Sz5 - Briones [id number] Implanted:Qty: 1 on 10/23/2011 Knee Implant Other/Legacy - See Implant Description [employer] Description:Device Manufactu rer - [employer]. Body Location - Other. Left. Device Status Text - [id number] [id number]. Sigma Post Stab.W Lug Fem Sz 6 Lt - Briones [id number] Implanted:Qty: 1 on 10/23/2011 Knee Implant Other/Legacy - See Implant Description [employer] Description:Device Manufactu rer - [employer]. Body Location - Other. Left. Device Status Text - [id number] [id number]. Cement Bone Large - Briones [id number] Implanted:Qty: [...] METABOLIC PANEL, S/P Routine 03/27/2023 3:[address] ABDOMEN PELVIS WITH IV CONTRAST RAD [...] 25 mg/mL ??Route: intravitreal, Site: Left Eye ??[facility]: [phone] Balanced salt solution irrigation to injected eye [...] and return schedule given if requested. MEHRDAD [id number] Exp 01/06/24 Shelia Moody M.D. OPHTH CLINIC PRO CEDURES * B-Scan Ultrasound - OS - Left Eye (10/19/2023 3:27 PM CDT) Narrative OPHTHALMOLGY NON-IMAGING ORDERS - 10/19/2023 8:17 PM CDT Quality was good. Notes 10/19/2023 B-scan Left Eye: Moderate to dense vitreous opacities layered inferiorly and possible traction near 430PE. Retina appears grossly attached, no mass noted. Suri Izquierdo M.D. OPHTH ULTRASOU ND Performing Organization Address [facility] de Phone Number OPHTHALMOLGY NON-IMAGING ORDERS * Eyes US-Eye [id number] Image Exam (10/19/2023 12:00 AM CDT) Only [...] RAD IMAGI NG PROCEDURES Performing Organization Address [facility] de Phone Number IIMO NA * Optical Coherence Tomography - Optic [...] Gallego M.D. OPHTH TOMOGRAPHY Performing Organization Address [facility] de Phone Number OPHTHALMOLOGY IMAGING [...] Gallego M.D. OPHTH PHOTOGRAPHY Performing Organization Address [facility] de Phone Number OPHTHALMOLOGY IMAGING EXAM [...] OPHTH VISUAL FIEL D Performing Organization Address [facility] de Phone Number OPHTHALMOLOGY IMAGING EXAM * (ABNORMAL) Sedimentation Rate (07/30/2023 8:13 AM CDT) Sedimentation Rate, B 42(H) 3 - 28 mm/h 07/30/2023 10:11 AM CDT DTL Blood (Blood, Venous) 07/30/2023 8:13 AM CDT 07/30/2023 8:41 AM CDT Red Gallego M.D. LAB BLOOD ADD-ON Performing Organization Address [facility] Co de Phone Number [facility] [address] [place] [address], [facility] DTL [facility] [address] [place] [address] * (ABNORMAL) CBC with Differential, Blood (07/30/2023 [...] CDT Red Gallego M.D. LAB BLOOD ADD-ON [facility] [address] [place] [address], [place] DTL [facility] [address] [place] [address] [facility] [address] [place] [address] * (ABNORMAL) CRP (C-Reactive Protein) (07/30/2023 8:13 AM CDT) C-Reactive Protein (CRP), S 33.6(H) <5.0 mg/L 07/30/2023 9:14 AM CDT DTL Blood (Blood, Venous) 07/30/2023 8:13 AM CDT 07/30/2023 8:52 AM CDT Red Gallego M.D. LAB BLOOD ADD-ON Performing Organization Address City/[facility] Co de Phone Number [facility] [address] [place], [place] [phone] [place] [address] [facility] [address] [place] [address] * Creatinine with Estimated GFR (07/30/2023 8:13 AM CDT) Creatinine 1.15 0.74 - 1.35 mg/dL 07/30/2023 9:14 AM CDT DTL Estimated GFR (eGFR) 66 >=60 mL/min/BSA 07/30/2023 9:14 AM CDT DTL Comment: Estimated GFR calculated using the 2020 CKD_EPI creatinine equation. Blood (Blood, Venous) 07/30/2023 8:13 AM CDT 07/30/2023 8:52 AM CDT Red Gallego M.D. LAB BLOOD ADD-ON Performing Organization Address City/[facility]/ZIP Co de Phone Number [facility] [address] [place] [address], [facility] [address] [place] [address] * CT Head Neck Angiogram with IV [...]
--- OUTSIDE RECORDS SUMMARY | 2023-10-25 10:03 | XMS_ITS | Encounter Summary ---
Author Organization [facility] Address [address] [place] [address] Care Team Providers Care Restaurant Shift Leader Name Role Phone Unavailable Primary Care Provider Unavailabl e Encounter Details Date Type Department Care Team (Late st Contact Info) Description 10/19/2023 Ancillary Procedure Department of Ophthalmology Social History Tobacco Use Types Packs/Day Years Used Date Smoking Tobacco: Unknown [facility] Utilities Answer Date Recorded In the past 12 months has th e electric, gas, oil, or water [employer] threatened to shut off services in your [...] PM CDT Clinical Communication Virtual Review in [address] [address] 12/17/2023 2:30 PM CDT Ancillary Procedure Department of Ophthalmology in [address] [address] Red Gallego M.D. [address] [place] [phone] 12/17/2023 3:00 PM CDT Procedure visit Department of Ophthalmology in [address] [address] Rachel Collins M.D., Ph.D. [address] [place] [phone] 12/17/2023 3:15 PM CDT Ancillary Procedure Department of Ophthalmology in [address] [address] Rachel Collins M.D., Ph.D. [address] [place] [phone] 12/17/2023 3:45 PM CDT Comprehensive Visit Department of Ophthalmology in [address] [address] Rachel Collins M.D., Ph.D. [address] [place] [phone] 12/18/2023 2:00 PM CDT Ancillary Procedure Department of Ophthalmology in [place], [place] [address] [place] [phone] 12/18/2023 2:20 PM CDT Appointment Outpatient Procedure Center in [place], [place] [address] [place] [phone] Rachel Collins M.D., Ph.D. [address] [place] [phone] 12/19/2023 10:00 AM CDT Comprehensive Visit Department of Neurology in [place], [place] [address] [place] [phone] Jojo Barrientos M.D. [address] [place] [phone] 12/21/2023 9:00 AM CDT Ancillary Procedure Department of Ophthalmology in [place], [place] [address] [place] [phone] 12/21/2023 9:30 AM CDT Procedure visit Department of Ophthalmology in [address] [address] Rachel Collins M.D., Ph.D. [address] [place] [phone] documented as of this encounter Procedures Procedure Name Priority Date/Time Associated Diagnosis Comments OPHTHALMOLOGY IMAGE EXAM Routine 10/19/2023 12:00 AM CDT documented in this encounter Results * Eyes US-Eye [id number] Image Exam (10/19/2023 12:00 AM CDT) Narrative [facility] - 10/19/2023 3:24 PM CDT This order [...]
--- OUTSIDE RECORDS SUMMARY | 2023-10-25 10:03 | XMS_ITS | Encounter Summary ---
Author Organization [facility] Address [address] [place] [address] Care Team Providers Care Superintendent Car Construction Name Role Phone Unavailable Primary Care Provider Unavailabl e Encounter Details Date Type Department Care Team (Latest Contact Info) Description 10/16/2023 Clinical Communication Department of Ophthalmology in [place], [place] [address] [place] [phone] Red Gallego M.D. [address] [place] [address] Social History Tobacco Use Types Packs/Day Years Used Date Smoking Tobacco: Unknown [facility] Utilities Answer Date Recorded In the [...] PM CDT Clinical Communication Virtual Review in [place], [place] 200 [place] [address] 12/17/2023 2:30 PM CDT Ancillary Procedure Department of Ophthalmology in [address] [address] Red Gallego M.D. [address] [place] [phone] 12/17/2023 3:00 PM CDT Procedure visit Department of Ophthalmology in [address] [address] Rachel Collins M.D., Ph.D. [address] [place] [phone] 12/17/2023 3:15 PM CDT Ancillary Procedure Department of Ophthalmology in [place], [place] [address] [place] [phone] Rachel Collins M.D., Ph.D. [address] [place] [phone] 12/17/2023 3:45 PM CDT Comprehensive Visit Department of Ophthalmology in [address] [address] Rachel Collins M.D., Ph.D. [address] [place] [phone] 12/18/2023 2:00 PM CDT Ancillary Procedure Department of Ophthalmology in [address] [address] 12/18/2023 2:20 PM CDT Appointment Outpatient Procedure Center in [address] [address] Rachel Collins M.D., Ph.D. [address] [place] [phone] 12/19/2023 10:00 AM CDT Comprehensive Visit Department of Neurology in [address] [address] Jojo Barrientos M.D. [address] [place] [phone] 12/21/2023 9:00 AM CDT Ancillary Procedure Department of Ophthalmology in [address] [address] 12/21/2023 9:30 AM CDT Procedure visit Department of Ophthalmology in [address] [address] Rachel Collins M.D., Ph.D. [address] [place] [phone] documented as of this encounter Visit Diagnoses Not on filedocumented in this encounter
--- OUTSIDE RECORDS SUMMARY | 2023-10-25 10:03 | XMS_ITS | Encounter Summary ---
Author Organization [facility] Address [address] [place] [address] Care Team Providers Care Form Press Operator Name Role Phone Unavailable Primary Care Provider Unavailabl e Reason for Referral * Outpatient (Routine) - Authorized Specialty Diagnoses / Procedures Referred By Janeth phillips Referred To Contact Diagnoses Ischemia Retina Procedures Tamayo Retinal Photocoagulation - OS - Left Eye Rachel Collins M.D., Ph.D. [address] [place] [phone] [facility] Referral ID Status Reason Start Date Expiration Date V isits Requested Visits Authorized [id number] Authorized 09/11/2023 09/10/2024 1 1 * Outpatient (Routine) - Authorized Specialty Diagnoses / Procedures Referred By Janeth phillips Referred To Contact Diagnoses Ischemia Retina Procedures Intravitreal Injection Gonda Appt Order - OS - Left Eye Rachel Collins M.D., Ph.D. [address] [place] [phone] [facility] Referral ID Status Reason Start Date Expiration Date V isits Requested Visits Authorized [id number] Authorized 09/11/2023 09/10/2024 1 1 Encounter Details Date Type Department Care Team (Late st Contact Info) Description 09/11/2023 Orders Only Department of Ophthalmology in [place], [place] [address] [place] [address] Anabel Lang C.O.A. [address] [place] [address] Ischemia Retina (Primary Dx) Social History Tobacco Use Types Packs/Day Years Used Date Smoking Tobacco: Unknown [facility] Utilities Answer Date Recorded In the [...] your living situation today? I have a [facility] place to live 07/25/2023 Sex and Gender Information Value Date Recorded Sex Assigned at Male 07/25/2023 8:23 PM CDT Gender Identity Male 07/25/2023 8:23 PM CDT Sexual Orientation Straight 07/25/2023 8: 23 PM CDT documented as of this encounter Plan of Treatment Upcoming Encounters Date Type Department Care Team (Latest Contact Info) Description 2023 12:15 PM CDT Clinical Communication Virtual Review in [place], [place] 200 [place] [address] 12/17/2023 2:30 PM CDT Ancillary Procedure Department of Ophthalmology in [place], [place] [address] [place] [phone] Red Gallego M.D. [address] [place] [phone] 12/17/2023 3:00 PM CDT Procedure visit Department of Ophthalmology in [address] [address] Rachel Collins M.D., Ph.D. [address] [place] [phone] 12/17/2023 3:15 PM CDT Ancillary Procedure Department of Ophthalmology in [address] [address] Rachel Collins M.D., Ph.D. [address] [place] [phone] 12/17/2023 3:45 PM CDT Comprehensive Visit Department of Ophthalmology in [address] [address] Rachel Collins M.D., Ph.D. [address] [place] [phone] 12/18/2023 2:00 PM CDT Ancillary Procedure Department of Ophthalmology in [place], [place] [address] [place] [phone] 12/18/2023 2:20 PM CDT Appointment Outpatient Procedure Center in [place], [place] [address] [place] [phone] Rachel Collins M.D., Ph.D. [address] [place] [phone] 12/19/2023 10:00 AM CDT Comprehensive Visit Department of Neurology in [place], [place] [address] [place] [phone] Jojo Barrientos M.D. [address] [place] [phone] 12/21/2023 9:00 AM CDT Ancillary Procedure Department of Ophthalmology in [place], [place] [address] [place] [phone] 12/21/2023 9:30 AM CDT Procedure visit Department of Ophthalmology in [place], [place] [address] [place] [phone] Rachel Collins M.D., Ph.D. [address] [place] [phone] Scheduled Orders Name Type Priority Associated Diagnoses [...]
--- OUTSIDE RECORDS SUMMARY | 2023-10-25 10:03 | XMS_ITS | Encounter Summary ---
Author Organization [facility] Address [address] [place] [address] Care Team Providers Care Business Operations Analyst Name Role Phone Unavailable Primary Care Provider Unavailabl e Reason for Referral * Outpatient (Routine) - Authorized Specialty Diagnoses / Procedures Referred By Janeth phillips Referred To Contact Diagnoses Glaucoma Neovascular Procedures Intravitreal Injection, Pharmacologic Agent - OS - Left Eye Suri Izquierdo M.D. [address] [place] [address] [facility] Region Referral ID Status Reason Start Date Expiration Date V isits Requested Visits Authorized [id number] Authorized 10/19/2023 10/18/2024 5 5 Reason for Visit * Outpatient (Routine) - Authorized Specialty Diagnoses / Procedures Referred By Janeth phillips Referred To Contact Diagnoses Glaucoma Neovascular Procedures Intravitreal Injection, Pharmacologic Agent - OS - Left Eye Suri Izquierdo M.D. [address] [place] [address] [facility] Region Referral ID Status Reason Start Date Expiration Date V isits Requested Visits Authorized [id number] Authorized 10/19/2023 10/18/2024 5 5 Encounter Details Date Type Department Care Team (Latest Contact Info) Description 10/23/2023 1:51 PM CDT - 10/23/2023 2:53 PM CDT Hospital Encounter Outpatient Procedure Center in [place], [place] [address] [place] [phone] Suri Izquierdo M.D. [address] [place] [address] Glaucoma Neovascular Discharge Disposition: Home or Self Care Social [...] Take 40 mg by mouth at bedtime. atropine (Isopto Atropine) 1 % ophthalmic solution Administer 1 drop into the left eye 2 (two) times a day. 2 mL 12 10/19/2023 brimonidine (Alphagan) 0.2 % ophthalmic solution Administer 1 drop into the left eye 3 (three) times a day. 5 mL 3 10/19/2023 dorzolamide (Trusopt) 2 % ophthalmic solution Administer 1 drop into the left eye 2 (two) times a day. 10 mL 12 10/19/2023 Eliquis 5 mg tablet Take 5 mg [...] PM CDT Clinical Communication Virtual Review in [address] [phone] 12/17/2023 2:30 PM CDT Ancillary Procedure Department of Ophthalmology in [address] [phone] Red Gallego M.D. [address] [place] [phone] 12/17/2023 3:00 PM CDT Procedure visit Department of Ophthalmology in [place], [place] [address] [place] [phone] Rachel Collins M.D., Ph.D. [address] [place] [phone] 12/17/2023 3:15 PM CDT Ancillary Procedure Department of Ophthalmology in [place], [place] [address] [place] [phone] Rachel Collins M.D., Ph.D. [address] [place] [phone] 12/17/2023 3:45 PM CDT Comprehensive Visit Department of Ophthalmology in [place], [place] [address] [place] [phone] Rachel Collins M.D., Ph.D. [address] [place] [phone] 12/18/2023 2:00 PM CDT Ancillary Procedure Department of Ophthalmology in [place], [place] [address] [place] [phone] 12/18/2023 2:20 PM CDT Appointment Outpatient Procedure Center in [address] [phone] Rachel Collins M.D., Ph.D. [address] [place] [phone] 12/19/2023 10:00 AM CDT Comprehensive Visit Department of Neurology in [address] [phone] Jojo Barrientos M.D. [address] [place] [phone] 12/21/2023 9:00 AM CDT Ancillary Procedure Department of Ophthalmology in [place], [place] [address] [place] [address] 12/21/2023 9:30 AM CDT Procedure visit Department of Ophthalmology in [place], [place] [address] [place] [address] Rachel Collins M.D., Ph.D. [address] [place] [phone] documented as of this encounter Procedures Procedure Name Priority Date/Time Associated Diagnosis Comments INTRAVITREAL INJECTION, PHARMACOLOGIC AGENT - OS - LEFT EYE Routine 10/23/2023 2:54 PM CDT Glaucoma Neovascular INTRAVITREAL INJECTION, PHARMACOLOGIC AGENT - OS - LEFT EYE Routine 10/23/2023 1:51 PM CDT Glaucoma Neovascular documented in this encounter Results * Intravitreal Injection, Pharmacologic Agent - [...] 25 mg/mL ??Route: intravitreal, Site: Left Eye ??[facility]: [address]-701-71 Balanced salt solution irrigation to injected eye [...] and return schedule given if requested. MEHRDAD [id number] Exp 01/06/24 Shelia Moody M.D. OPH CLINIC PRO CEDURES documented in this encounter Visit Diagnoses Diagnosis Glaucoma Neovascular documented in this encounter Administered Medications Active Administered Medications - up to 3 most recent administrations Medication Order MAR Action Action Date Dose Rate Site balanced salt solution ophthalmic irrigation 30 mL (BSS) 30 mL, left eye, As needed, DIRECTED OPHTHALMIC IN OR, Starting on Sun10/23/23 at 0946, For 365 days Given 10/23/2023 2:55 PM CDT 30 mL carboxymethylcellulose 1 % ophthalmic solution 1 drop (TheraTears) 1 drop, left eye, As needed, dry eyes, DIRECTED OPHTHALMIC IN OR, Starting on Sun10/23/23 at 0946, For 365 days Given 10/23/2023 2:55 PM CDT 1 drop povidone-iodine 5 % ophthalmic solution 1 drop (Betadine) 1 drop, left eye, As needed, irrigation, DIRECTED OPHTHALMIC IN OR, Starting on Sun10/23/23 at 0946, For 365 days, Irrigate ocular and periocular region and leave for 2 mins; then flush with sterile saline solution. Given 10/23/2023 2:55 PM CDT 1 drop proparacaine 0.5 % ophthalmic solution 1 drop (Alcaine) 1 drop, left eye, As needed, DIRECTED OPHTHALMIC IN OR, Starting on Sun10/23/23 at 0946, For 365 days Given 10/23/2023 2:55 PM CDT 1 drop tetracaine (PF) 0.5 % ophthalmic solution 1 drop (Altacaine) 1 drop, left eye, As needed, DIRECTED OPHTHALMIC IN OR, Starting on Sun10/23/23 at 0946, For 365 days Given 10/23/2023 2:55 PM CDT 1 drop Inactive Administered Medications - up to 3 most recent administrations Medication Order MAR Action Action Date Dose Rate Site bevacizumab intraocular injection 1.25 mg (Avastin) 1.25 mg, intravitreal, As needed, DIRECTED OPHTHALMIC IN OR, Starting on Sun10/23/23 at 1522, Inject into left eye. Given 10/23/2023 3:22 PM CDT 1.25 mg Lef t Eye documented in this encounter
--- OUTSIDE RECORDS SUMMARY | 2023-10-25 10:03 | XMS_ITS | Encounter Summary ---
Author Organization [facility] Address [address] [place] [address] Care Team Providers Care Hospice Admitting Clerk Name Role Phone Unavailable Primary Care Provider Unavailabl e Reason for Referral * Outpatient (Routine) - Authorized Specialty Diagnoses / Procedures Referred By Avelinaac t Referred To Contact Neurology Diagnoses Occlusion Carotid Artery Left Ischemia Retina Glaucoma Neovascular Neuropathy Optic Ischemic Bilateral Suri Izquierdo M.D. [address] [place] [address] [facility] Referral ID Status Reason Start Date Expiration Date V isits Requested Visits Authorized [id number] Authorized 10/23/2023 04/23/2025 1 1 * Outpatient (Routine) - Authorized Specialty Diagnoses / Procedures Referred By Janeth phillips Referred To Contact Ophthalmology Suri Izquierdo M.D. [address] [place] [address] [facility] Referral ID Status Reason Start Date Expiration Date V isits Requested Visits Authorized [id number] Authorized 10/23/2023 04/23/2025 1 1 Scheduling Instructions VTD Reason for Visit * Outpatient (Routine) - Closed Specialty Diagnoses / Procedures Referred By Janeth phillips Referred To Contact Ophthalmology Suri Izquierdo M.D. [address] [place] [address] [facility] Referral ID Status Reason Start Date Expiration Date Visits Re quested Visits Authorized [id number] Closed 10/19/2023 04/19/2025 1 1 Encounter Details Date Type Department Care Team (Latest Contact Info) Description 10/23/2023 12:30 PM CDT Office Visit Department of Ophthalmology in [place], [place] [address] [place] [address] Suri Izquierdo M.D. [address] [place] [address] Occlusion Carotid Artery Left (Primary Dx); Ischemia Retina; Glaucoma Neovascular; Neuropathy Optic Ischemic Bilateral Social History Tobacco Use Types Packs/Day Years [...] your living situation today? I have a [facility] place to live 07/25/2023 Sex and Gender Information Value Date Recorded Sex Assigned at Male 07/25/2023 8:23 PM CDT Gender Identity Male 07/25/2023 8:23 PM CDT Sexual Orientation Straight 07/25/2023 8: 23 PM CDT documented as of this encounter Progress Notes * Suri Izquierdo M.D. - 10/23/2023 12:30 PM CDT CC: This is a follow up visit for Andrew Shields for neovascular glaucoma, left eye. SUBJECTIVE: Since he was last seen 4 days ago, patient reports that the pain in the left eye has gotten much better, and pressure sensation is gone. He did not start using the brimonidine until yesterday becausehis pharmacy was out of stock, his daughter had to drive to pharmacy in the [facility] to fill the prescription. He is otherwise using all his eye drops as instructed. After discussing with his children, he decided that he would prefer to establish care with a vascular specialist and or stroke specialist here at [facility], so he did not reach out to his vascular specialist closer to home. His right eye remains asymptomatic and he reports no changes in vision. POH - Cataract surgery BOTH EYES ASSESSMENT: # Neovascular glaucoma, left eye # Likely vitreous hemorrhage, left eye # Ocular ischemic syndrome, left eye # Left ICA occlusion IMPRESSION: His pressure in the left eye has now normalized to 18 on the new drop regimen, and he also reports significant symptomatic improvement no more pain in the left eye. Slit-lamp exam today is unchanged,and shows stable hyphema with dense hemoglobin in the anterior chamber, corneal neovascularization,and still no view to the back of the left eye. Will plan to continue intravitreal anti-VEGF injections every 4 weeks for 4 injections total, to befollowed with OCT macula after last injection. Will need to perform panretinal photocoagulation to treat the retinal ischemia component once the hyphema clears and anterior segment view clears to allow view into the posterior segment. Discussed importance of addressing systemic underlying cause for his ocular ischemic syndrome, especially with left ICA occlusion and prior stroke history causing him to be at high risk of future strokes. Discussed with patient and family and they expressed understanding. I will place a referral tostroke neurology here at [place]. PLAN: - Avastin injection this afternoon in injection clinic, rest of plan outlined in Retinal Injection Plan below - Continue latanoprost both eyes daily - Continue brimonidine TID, dorzolamide TID, and atropine BID, left eye - Continue monocular precautions - Referral to vascular medicine placed at last visit - Referral placed to endovascular neurology today - Will plan for panretinal photocoagulation in the left eye once there is a view to the posterior segment - RTC in one week for follow-up, return precautions discussed Retinal Injection Plan 10/23/2023 Left Eye: Avastin Left eye for Other: neovascular glaucoma today . Follow-up for 3 more injections of Avastin in the left eye every 4 weeks. Followup: 4 - 5 weeks after last injection with OCT macula. Injection Location: [facility] injection slot in [place]? Left eye Staffed with Dr. Herrera on 10/19/23 Patient discussed and seen with Dr. Sanchez today. Suri Izquierdo M.D. PGY-2 Ophthalmology Resident documented in this encounter Plan of Treatment Upcoming Encounters Date Type Department Care Team (Latest Contact Info) Description 2023 12:15 PM CDT Clinical Communication Virtual Review in [address] [phone] 12/17/2023 2:30 PM CDT Ancillary Procedure Department of Ophthalmology in [address] [phone] Red Gallego M.D. [address] [place] [phone] 12/17/2023 3:00 PM CDT Procedure visit Department of Ophthalmology in [address] [phone] Rachel Collins M.D., Ph.D. [address] [place] [phone] 12/17/2023 3:15 PM CDT Ancillary Procedure Department of Ophthalmology in [place], [place] [address] [place] [phone] Rachel Collins M.D., Ph.D. [address] [place] [phone] 12/17/2023 3:45 PM CDT Comprehensive Visit Department of Ophthalmology in [place], [place] [address] [place] [phone] Rachel Collins M.D., Ph.D. [address] [place] [phone] 12/18/2023 2:00 PM CDT Ancillary Procedure Department of Ophthalmology in [place], [place] [address] [place] [phone] 12/18/2023 2:20 PM CDT Appointment Outpatient Procedure Center in [place], [place] [address] [place] [phone] Rachel Collins M.D., Ph.D. [address] [place] [phone] 12/19/2023 10:00 AM CDT Comprehensive Visit Department of Neurology in [place], [place] [address] [place] [phone] Jojo Barrientos M.D. [address] [place] [phone] 12/21/2023 9:00 AM CDT Ancillary Procedure Department of Ophthalmology in [place], [place] [address] [place] [phone] 12/21/2023 9:30 AM CDT Procedure visit Department of Ophthalmology in [place], [place] [address] [place] [phone] Rachel Collins M.D., Ph.D. [address] [place] [address] Scheduled Referrals Name Type Priority Associated Diagnoses Order Schedule Ophthalmology office visit (clinic) Outpatient Referral Routine Expected: 11/02/2023, Expires: 01/22/2025 Neurology - Cerebrovascular consult (clinic) Outpatient Referral Routine Occlusion Carotid Artery Left Ischemia Retina Glaucoma Neovascular Neuropathy Optic Ischemic Bilateral Expected: 10/23/2023, Expires: 01/22/2025 documented as of this encounter Visit Diagnoses Diagnosis Occlusion Carotid Artery Left- Primary Ischemia Retina Glaucoma Neovascular Neuropathy Optic Ischemic Bilateral documented in this encounter
--- OUTSIDE RECORDS SUMMARY | 2023-10-25 10:03 | XMS_ITS | Encounter Summary ---
Author Organization [facility] Address [address] [place] [address] Care Team Providers Care Network Contract Manager Name Role Phone Unavailable Primary Care Provider Unavailabl e Encounter Details Date Type Department Care Team (Latest Contact Info) Description 10/23/2023 2:54 PM CDT - 10/23/2023 11:59 PM CDT Hospital Encounter Outpatient Procedure Center in [place], [place] [address] [place] [address] Shelia Laughlin M.D. [address] [place] [address] Arrived Discharge Disposition: Home or Self Care Social History Tobacco Use Types Packs/Day Years Used Date Smoking Tobacco: Unknown [facility] Utilities Answer Date Recorded In the past 12 months has [employer], gas, oil, or water company [...] your living situation today? I have a [facility] place to live 07/25/2023 [...] PM CDT Clinical Communication Virtual Review in [place], [place] [address] [place] [address] 12/17/2023 2:30 PM CDT Ancillary Procedure Department of Ophthalmology in [address] [address] Red Gallego M.D. [address] [place] [phone] 12/17/2023 3:00 PM CDT Procedure visit Department of Ophthalmology in [address] [address] Rachel Collins M.D., Ph.D. [address] [place] [phone] 12/17/2023 3:15 PM CDT Ancillary Procedure Department of Ophthalmology in [address] [address] Rachel Collins M.D., Ph.D. [address] [place] [phone] 12/17/2023 3:45 PM CDT Comprehensive Visit Department of Ophthalmology in [address] [address] Rachel Collins M.D., Ph.D. [address] [place] [phone] 12/18/2023 2:00 PM CDT Ancillary Procedure Department of Ophthalmology in [place], [place] [address] [phone] 12/18/2023 2:20 PM CDT Appointment Outpatient Procedure Center in [place], [place] [address] [phone] Rachel Collins M.D., Ph.D. [address] [place] [phone] 12/19/2023 10:00 AM CDT Comprehensive Visit Department of Neurology in [place], [place] [address] [phone] Jojo Barrientos M.D. [address] [place] [phone] 12/21/2023 9:00 AM CDT Ancillary Procedure Department of Ophthalmology in [place], [place] [address] [place] [phone] 12/21/2023 9:30 AM CDT Procedure visit Department of Ophthalmology in [address] [address] Rachel Collins M.D., Ph.D. [address] [place] [phone] documented as of this encounter Procedures Procedure Name Priority Date/Time Associated Diagnosis Comments INTRAVITREAL INJECTION, PHARMACOLOGIC AGENT - OS - LEFT EYE Routine 10/23/2023 2:54 PM CDT Glaucoma Neovascular documented in this encounter Results * Intravitreal Injection, Pharmacologic Agent - OS - Left Eye (10/23/2023 2:54 PM CDT) Narrative Shelai Laughlin M.D. - 10/23/2023 3:22 PM CDT [...] 25 mg/mL ??Route: intravitreal, Site: Left Eye ??[facility]: [address]016-45 Balanced salt solution irrigation to injected eye [...] and return schedule given if requested. MEHRDAD [id number] Exp 01/06/24 Shelia Moody M.D. [facility] PRO CEDURES documented in this encounter Visit Diagnoses Not on filedocumented in this encounter
--- OUTSIDE RECORDS SUMMARY | 2023-10-25 10:03 | XMS_ITS | Encounter Summary ---
Author Organization [facility] Address [address] [place] [address] Care Team Providers Care Custodial Operations Manager Name Role Phone Unavailable Primary Care Provider Unavailabl e Reason for Referral * Outpatient (Routine) - Authorized Specialty Diagnoses / Procedures Referred By Janeth phillips Referred To Contact Diagnoses Glaucoma Neovascular Procedures Intravitreal Injection, Pharmacologic Agent - OS - Left Eye Suri Izquierdo M.D. [address] [place] [address] [facility] Referral ID Status Reason Start Date Expiration Date V isits Requested Visits Authorized [id number] Authorized 10/19/2023 10/18/2024 5 5 * Outpatient (Routine) - Authorized Specialty Diagnoses / Procedures Referred By Janeth phillips Referred To Contact Ophthalmology Suri Izquierdo M.D. [address] [place] [address] [facility] Referral ID Status Reason Start Date Expiration Date V isits Requested Visits Authorized [id number] Authorized 10/19/2023 04/19/2025 1 1 Scheduling Instructions Left Eye: Avastin Left eye for Other: Neovascular glaucoma within 1 week. Follow-up for 3 more injections of Avastin in the left eye every 4 - weeks. Followup: 4 - 5 weeks after last injection with OCT macula. Injection Location: [facility] injection slot in [place]? Left eye Encounter Details Date Type Department Care Team (Late st Contact Info) Description 10/19/2023 Orders Only Department of Ophthalmology in [place], [place] [address] [place] [address] Juan David Cabrales M.D. [address] [place] [address] Glaucoma Neovascular (Primary Dx); Hemorrhage Vitreous Left (HCC) Social History Tobacco Use Types Packs/Day Years Used Date Smoking Tobacco: Unknown [facility] Utilities Answer Date Recorded In the [...] PM CDT Clinical Communication Virtual Review in [place], [place] 200 [place] [address] 12/17/2023 2:30 PM CDT Ancillary Procedure Department of Ophthalmology in [address] [address] Red Gallego M.D. [address] [place] [phone] 12/17/2023 3:00 PM CDT Procedure visit Department of Ophthalmology in [address] [address] Rachel Collins M.D., Ph.D. [address] [place] [phone] 12/17/2023 3:15 PM CDT Ancillary Procedure Department of Ophthalmology in [address] [address] Rachel Collins M.D., Ph.D. [address] [place] [phone] 12/17/2023 3:45 PM CDT Comprehensive Visit Department of Ophthalmology in [address] [address] Rachel Collins M.D., Ph.D. [address] [place] [phone] 12/18/2023 2:00 PM CDT Ancillary Procedure Department of Ophthalmology in [place], [place] [address] [place] [phone] 12/18/2023 2:20 PM CDT Appointment Outpatient Procedure Center in [place], [place] [address] [place] [phone] Rachel Collins M.D., Ph.D. [address] [place] [phone] 12/19/2023 10:00 AM CDT Comprehensive Visit Department of Neurology in [place], [place] [address] [place] [phone] Jojo Barrientos M.D. [address] [place] [phone] 12/21/2023 9:00 AM CDT Ancillary Procedure Department of Ophthalmology in [place], [place] [address] [place] [phone] 12/21/2023 9:30 AM CDT Procedure visit Department of Ophthalmology in [place], [place] [address] [place] [phone] Rachel Collins M.D., Ph.D. [address] [place] [phone] Scheduled Orders Name Type Priority Associated Diagnoses Orde r Schedule Optical Coherence Tomography - Macula/Retina - OU - Both Eyes Ophthalmology Routine Hemorrhage Vitreous Left (HCC) 1 Occurrences starting 10/19/2023 until 01/18/2025 Intravitreal Injection, Pharmacologic Agent - OS - Left Eye Ophthalmology Routine Glaucoma Neovascular 4 weeks for 5 Occurrences starting 10/19/2023 until 10/18/2026, 1 completed Scheduled Referrals Name Type Priority Associated Diagnoses Order Schedule Ophthalmology office visit (clinic) Outpatient Referral Routine 1 Occurrences starting 10/19/2023 until 10/18/2026 documented as of this encounter Visit Diagnoses Diagnosis Glaucoma Neovascular- Primary Hemorrhage Vitreous Left (HCC) documented in this encounter
--- OUTSIDE RECORDS SUMMARY | 2023-10-25 10:03 | XMS_ITS | Encounter Summary ---
Author Organization [facility] Address [address] [place] [address] Care Team Providers Care Drier Belt Conveyor Name Role Phone Unavailable Primary Care Provider Unavailabl e Encounter Details Date Type Department Care Team (Latest Contact Info) Description 10/19/2023 2:00 PM CDT Ancillary Procedure Department of Ophthalmology in [place], [place] [address] [place] [address] Suri Izquierdo M.D. [address] [place] [address] Glaucoma Neovascular; Hemorrhage Vitreous Left (HCC) Social History Tobacco [...] your living situation today? I have a [facility] place to live 07/25/2023 Sex and Gender Information Value Date Recorded Sex Assigned at Male 07/25/2023 8:23 PM CDT Gender Identity Male 07/25/2023 8:23 PM CDT Sexual Orientation Straight 07/25/2023 8: 23 PM CDT documented as of this encounter Plan of Treatment Upcoming Encounters Date Type Department Care Team (Latest Contact Info) Description 2023 12:15 PM CDT Clinical Communication Virtual Review in [place], [place] 200 [place] [address] 12/17/2023 2:30 PM CDT Ancillary Procedure Department of Ophthalmology in [address] [address] Red Gallego M.D. [address] [place] [phone] 12/17/2023 3:00 PM CDT Procedure visit Department of Ophthalmology in [address] [address] Rachel Collins M.D., Ph.D. [address] [place] [phone] 12/17/2023 3:15 PM CDT Ancillary Procedure Department of Ophthalmology in [address] [address] Rachel Collins M.D., Ph.D. [address] [place] [phone] 12/17/2023 3:45 PM CDT Comprehensive Visit Department of Ophthalmology in [place], [place] [address] [place] [phone] Rachel Collins M.D., Ph.D. [address] [place] [phone] 12/18/2023 2:00 PM CDT Ancillary Procedure Department of Ophthalmology in [place], [place] [address] [place] [phone] 12/18/2023 2:20 PM CDT Appointment Outpatient Procedure Center in [address] [address] Rachel Collins M.D., Ph.D. [address] [place] [phone] 12/19/2023 10:00 AM CDT Comprehensive Visit Department of Neurology in [address] [address] Jojo Barrientos M.D. [address] [place] [phone] 12/21/2023 9:00 AM CDT Ancillary Procedure Department of Ophthalmology in [address] [phone] 12/21/2023 9:30 AM CDT Procedure visit Department of Ophthalmology in [address] [address] Rachel Collins M.D., Ph.D. [address] [place] [phone] documented as of this encounter Procedures Procedure Name Priority Date/Time Associated Diagnosis Comments B SCAN - OS - LEFT EYE Routine 10/19/2023 3:27 PM CDT Glaucoma Neovascular Hemorrhage Vitreous Left (HCC) documented in this encounter Results * B-Scan Ultrasound - OS - Left Eye (10/19/2023 3:27 PM CDT) Narrative OPHTHALMOLGY NON-IMAGING ORDERS - 10/19/2023 8:17 PM CDT Quality was good. Notes 10/19/2023 B-scan Left Eye: Moderate to dense vitreous opacities layered inferiorly and possible traction near 430PE. Retina appears grossly attached, no mass noted. Suri Izquierdo M.D. OPHUDAY VIGIL ND OPHTHALMOLGY NON-IMAGING ORDERS documented in this encounter Visit Diagnoses Diagnosis Glaucoma Neovascular Hemorrhage Vitreous Left (HCC) documented in this encounter
--- OUTSIDE RECORDS SUMMARY | 2023-10-25 10:03 | XMS_ITS | Encounter Summary ---
Author Organization [facility] Address [address] [place] [address] Care Team Providers Care Extractor Operator Helper Name Role Phone Unavailable Primary Care Provider Unavailabl e Encounter Details Date Type Department Care Team (Latest Contact Info) Description 10/19/2023 Clinical Communication Department of Ophthalmology in [place], [place] [address] [place] [address] Suri Izquierdo M.D. [address] [place] [address] Social History Tobacco Use Types Packs/Day Years [...] your living situation today? I have a [facility] place to live 07/25/2023 Sex and Gender Information Value Date Recorded Sex Assigned at Male 07/25/2023 8:23 PM CDT Gender Identity Male 07/25/2023 8:23 PM CDT Sexual Orientation Straight 07/25/2023 8: 23 PM CDT documented as of this encounter Plan of Treatment Upcoming Encounters Date Type Department Care Team (Latest Contact Info) Description 2023 12:15 PM CDT Clinical Communication Virtual Review in [address] [address] 12/17/2023 2:30 PM CDT Ancillary Procedure Department of Ophthalmology in [address] [address] Red Gallego M.D. [address] [place] [phone] 12/17/2023 3:00 PM CDT Procedure visit Department of Ophthalmology in [address] [address] Rachel Collins M.D., Ph.D. [address] [place] [phone] 12/17/2023 3:15 PM CDT Ancillary Procedure Department of Ophthalmology in [address] [address] Rachel Collins M.D., Ph.D. [address] [place] [phone] 12/17/2023 3:45 PM CDT Comprehensive Visit Department of Ophthalmology in [place], [place] [address] [place] [phone] Rachel Collins M.D., Ph.D. [address] [place] [phone] 12/18/2023 2:00 PM CDT Ancillary Procedure Department of Ophthalmology in [place], [place] [address] [place] [phone] 12/18/2023 2:20 PM CDT Appointment Outpatient Procedure Center in [address] [address] Rachel Collins M.D., Ph.D. [address] [place] [phone] 12/19/2023 10:00 AM CDT Comprehensive Visit Department of Neurology in [address] [address] Jojo Barrientos M.D. [address] [place] [phone] 12/21/2023 9:00 AM CDT Ancillary Procedure Department of Ophthalmology in [address] [address] 12/21/2023 9:30 AM CDT Procedure visit Department of Ophthalmology in [address] [address] Rachel Collins M.D., Ph.D. [address] [place] [phone] documented as of this encounter Visit Diagnoses Not on filedocumented in this encounter
--- OUTSIDE RECORDS SUMMARY | 2023-10-25 10:03 | XMS_ITS | Encounter Summary ---
Author Organization [facility] Address [address] [place] [address] Care Team Providers Care Order Filler Name Role Phone Unavailable Primary Care Provider Unavailabl e Encounter Details Date Type Department Care Team (Late st Contact Info) Description 10/23/2023 Orders Only Department of Ophthalmology in [place], [place] [address] [place] [phone] Anabel Lang, C.O.A. [address] [place] [phone] Glaucoma Neovascular (Primary Dx) Social History Tobacco Use Types Packs/Day Years Used Date Smoking Tobacco: Unknown [facility] Utilities Answer Date Recorded In the past 12 months has [facility] electric, gas, oil, or water company [...] your living situation today? I have a [facility] place to live 07/25/2023 Sex and Gender Information Value Date Recorded Sex Assigned at Male 07/25/2023 8:23 PM CDT Gender Identity Male 07/25/2023 8:23 PM CDT Sexual Orientation Straight 07/25/2023 8: 23 PM CDT documented as of this encounter Plan of Treatment Upcoming Encounters Date Type Department Care Team (Latest Contact Info) Description 2023 12:15 PM CDT Clinical Communication Virtual Review in [address] [address] 12/17/2023 2:30 PM CDT Ancillary Procedure Department of Ophthalmology in [address] [address] Red Gallego M.D. [address] [place] [phone] 12/17/2023 3:00 PM CDT Procedure visit Department of Ophthalmology in [address] [address] Rachel Collins M.D., Ph.D. [address] [place] [phone] 12/17/2023 3:15 PM CDT Ancillary Procedure Department of Ophthalmology in [address] [address] Rachel Collins M.D., Ph.D. [address] [place] [phone] 12/17/2023 3:45 PM CDT Comprehensive Visit Department of Ophthalmology in [place], [place] [address] [place] [phone] Rachel Collins M.D., Ph.D. [address] [place] [phone] 12/18/2023 2:00 PM CDT Ancillary Procedure Department of Ophthalmology in [place], [place] [address] [place] [phone] 12/18/2023 2:20 PM CDT Appointment Outpatient Procedure Center in [address] [address] Rachel Collins M.D., Ph.D. [address] [place] [phone] 12/19/2023 10:00 AM CDT Comprehensive Visit Department of Neurology in [place], [place] [address] [place] [phone] Jojo Barrientos M.D. [address] [place] [phone] 12/21/2023 9:00 AM CDT Ancillary Procedure Department of Ophthalmology in [place], [place] [address] [place] [phone] 12/21/2023 9:30 AM CDT Procedure visit Department of Ophthalmology in [address] [address] Rachel Collins M.D., Ph.D. [address] [place] [phone] documented as of this encounter Visit Diagnoses Diagnosis Glaucoma Neovascular- Primary documented in this encounter
--- OUTSIDE RECORDS SUMMARY | 2023-10-25 10:04 | XMS_ITS | Encounter Summary ---
Author Organization [facility] Address [address] [place] [address] Care Team Providers Care Clinical Assistant Professor Name Role Phone Unavailable Primary Care Provider Unavailabl e Reason for Referral * MRI/CAT/PET Scan (Routine) - Closed Specialty Diagnoses / Procedures Referred By Janeth phillips Referred To Contact Radiology Diagnoses Loss Visual Procedures CT Head Neck Angiogram with IV Contrast Red Gallego M.D. [address] [place] [phone] [facility] Referral ID Status Reason Start Date Expiration Date Visits Re quested Visits Authorized [id number] Closed 07/25/2023 07/24/2024 1 1 Encounter Details Date Type Department Care Team (Late st Contact Info) Description 07/25/2023 Orders Only Department of Ophthalmology in [place], [place] [address] [place] [phone] Red Gallego M.D. [address] [place] [phone] Loss Visual (Primary Dx); Defect Visual Field Social History Tobacco Use Types Packs/Day Years Used Date Smoking Tobacco: Unknown [facility] Utilities Answer Date Recorded In the [...] PM CDT Clinical Communication Virtual Review in [place], [place] [address] [place] [phone] 12/17/2023 2:30 PM CDT Ancillary Procedure Department of Ophthalmology in [place], [place] [address] [place] [phone] Red Gallego M.D. [address] [place] [phone] 12/17/2023 3:00 PM CDT Procedure visit Department of Ophthalmology in [place], [place] [address] [place] [phone] Rachel Collins M.D., Ph.D. [address] [place] [phone] 12/17/2023 3:15 PM CDT Ancillary Procedure Department of Ophthalmology in [place], [place] [address] [place] [phone] Rachel Collins M.D., Ph.D. [address] [place] [phone] 12/17/2023 3:45 PM CDT Comprehensive Visit Department of Ophthalmology in [place], [place] [address] [place] [address] Rachel Collins M.D., Ph.D. [address] [place] [phone] 12/18/2023 2:00 PM CDT Ancillary Procedure Department of Ophthalmology in [place], [place] [address] [place] [phone] 12/18/2023 2:20 PM CDT Appointment Outpatient Procedure Center in [address] [address] Rachel Collins M.D., Ph.D. [address] [place] [phone] 12/19/2023 10:00 AM CDT Comprehensive Visit Department of Neurology in [address] [address] Jojo Barrientos M.D. [address] [place] [phone] 12/21/2023 9:00 AM CDT Ancillary Procedure Department of Ophthalmology in [place], [place] [address] [place] [phone] 12/21/2023 9:30 AM CDT Procedure visit Department of Ophthalmology in [place], [place] [address] [place] [phone] Rachel Collins M.D., Ph.D. [address] [place] [phone] documented as of this encounter Results * [...] M.D. LAB BLOOD ADD-ON Performing Organization Address City/[facility]/ZIP Co de Phone Number [facility] [address] [place] [address], [facility] 200 [place], [place] [phone] [place] [address] 200 [place] [address] * (ABNORMAL) CRP (C-Reactive Protein) (07/30/2023 8:13 AM CDT) C-Reactive Protein (CRP), S 33.6(H) <5.0 mg/L 07/30/2023 9:14 AM CDT DTL Blood (Blood, Venous) 07/30/2023 8:13 AM CDT 07/30/2023 8:52 AM CDT Red Gallego M.D. LAB BLOOD ADD-ON Performing Organization Address City/[facility]/ZIP Co de Phone Number [facility] [address] [place], [place] [phone] [place] [address] 200 [place] [address] * (ABNORMAL) Sedimentation Rate (07/30/2023 8:13 AM CDT) Sedimentation Rate, B 42(H) 3 - 28 mm/h 07/30/2023 10:11 AM CDT DTL Blood (Blood, Venous) 07/30/2023 8:13 AM CDT 07/30/2023 8:41 AM CDT Red Gallego M.D. LAB BLOOD ADD-ON Performing Organization Address City/[facility] Co de Phone Number [facility] [address] [place], [place] [phone] [place] [address] 200 [place] [address] * Creatinine with Estimated GFR (07/30/2023 8:13 AM CDT) Creatinine 1.15 0.74 - 1.35 mg/dL 07/30/2023 9:14 AM CDT DTL Estimated GFR (eGFR) 66 >=60 mL/min/BSA 07/30/2023 9:14 AM CDT DT Comment: Estimated GFR calculated using the 2020 CKD_EPI creatinine equation. Blood (Blood, Venous) 07/30/2023 8:13 AM CDT 07/30/2023 8:52 AM CDT Red Gallego M.D. LAB BLOOD ADD-ON Performing Organization Address City/[facility] Co de Phone Number [facility] [address] [place], [place] [phone] [address] * CT Head Neck Angiogram with IV Contrast (07/29/2023 2:33 PM CDT) Anatomical Region Laterality Modality Head and Neck, Neuroradiolog y RST LOS, Neuroradiology ARKassandra [facility], Neuroradiology [facility] N/A Computed Tomography, Compute d Tomography 07/29/2023 [...]
--- OUTSIDE RECORDS SUMMARY | 2023-10-25 10:04 | XMS_ITS | Encounter Summary ---
Author Organization [facility] Address [address] [place] [address] Care Team Providers Care Assistant Executive Housekeeper Name Role Phone Unavailable Primary Care Provider Unavailabl e Encounter Details Date Type Department Care Team (Late st Contact Info) Description 07/30/2023 1:25 PM CDT Ancillary Procedure Department of Ophthalmology Social History Tobacco Use Types Packs/Day Years Used Date Smoking Tobacco: Unknown [facility] Utilities Answer Date Recorded In the past 12 months has [employer], gas, oil, or water [employer] threatened to shut off services in your [...] PM CDT Clinical Communication Virtual Review in [place], [place] 200 [place] [address] 12/17/2023 2:30 PM CDT Ancillary Procedure Department of Ophthalmology in [address] [address] Red Gallego M.D. [address] [place] [phone] 12/17/2023 3:00 PM CDT Procedure visit Department of Ophthalmology in [address] [address] Rachel Collins M.D., Ph.D. [address] [place] [phone] 12/17/2023 3:15 PM CDT Ancillary Procedure Department of Ophthalmology in [address] [address] Rachel Collins M.D., Ph.D. [address] [place] [phone] 12/17/2023 3:45 PM CDT Comprehensive Visit Department of Ophthalmology in [address] [address] Rachel Collins M.D., Ph.D. [address] [place] [phone] 12/18/2023 2:00 PM CDT Ancillary Procedure Department of Ophthalmology in [place], [place] [address] [place] [phone] 12/18/2023 2:20 PM CDT Appointment Outpatient Procedure Center in [place], [place] [address] [place] [phone] Rachel Collins M.D., Ph.D. [address] [place] [phone] 12/19/2023 10:00 AM CDT Comprehensive Visit Department of Neurology in [address] [phone] Jojo Barrientos M.D. [address] [place] [phone] 12/21/2023 9:00 AM CDT Ancillary Procedure Department of Ophthalmology in [place], [place] [address] [place] [phone] 12/21/2023 9:30 AM CDT Procedure visit Department of Ophthalmology in [address] [address] Rachel Collins M.D., Ph.D. [address] [place] [phone] documented as of this encounter Procedures Procedure [...]
--- OUTSIDE RECORDS SUMMARY | 2023-10-25 10:04 | XMS_ITS | Encounter Summary ---
Author Organization [facility] Address [address] [place] [address] Care Team Providers Care Clinical Exercise Physiologist Name Role Phone Unavailable Primary Care Provider Unavailabl e Reason for Referral * MRI/CAT/PET Scan (Routine) - Closed Specialty Diagnoses / Procedures Referred By Avelinaac t Referred To Contact Radiology Diagnoses Loss Visual Procedures CT Head Neck Angiogram with IV Contrast Red Gallego M.D. [address] [place] [phone] [facility] Referral ID Status Reason Start Date Expiration Date Visits Re quested Visits Authorized [id number] Closed 07/25/2023 07/24/2024 1 1 Reason for Visit * MRI/CAT/PET Scan (Routine) - Closed Specialty Diagnoses / Procedures Referred By Janeth phillips Referred To Contact Radiology Diagnoses Loss Visual Procedures CT Head Neck Angiogram with IV Contrast Red Gallego M.D. 200 [place] [address] [facility] Referral ID Status Reason Start Date Expiration Date Visits Re quested Visits Authorized [id number] Closed 07/25/2023 07/24/2024 1 1 Encounter Details Date Type Department Care Team (Latest Contact Info) Description 07/29/2023 1:27 PM CDT - 07/29/2023 11:59 PM CDT Hospital Encounter Department of Radiology, [facility], in [place], [place] [address] [place] [address] Red Gallego M.D. [address] [place] [address] Loss Visual Discharge Disposition: Home or Self [...] PM CDT Clinical Communication Virtual Review in [address] [phone] 12/17/2023 2:30 PM CDT Ancillary Procedure Department of Ophthalmology in [address] [phone] Red Gallego M.D. [address] [place] [phone] 12/17/2023 3:00 PM CDT Procedure visit Department of Ophthalmology in [address] [address] Rachel Collins M.D., Ph.D. [address] [place] [phone] 12/17/2023 3:15 PM CDT Ancillary Procedure Department of Ophthalmology in [address] [address] Rachel Collins M.D., Ph.D. [address] [place] [phone] 12/17/2023 3:45 PM CDT Comprehensive Visit Department of Ophthalmology in [place], [place] [address] [place] [phone] Rachel Collins M.D., Ph.D. [address] [place] [phone] 12/18/2023 2:00 PM CDT Ancillary Procedure Department of Ophthalmology in [place], [place] [address] [place] [phone] 12/18/2023 2:20 PM CDT Appointment Outpatient Procedure Center in [address] [address] Rachel Collins M.D., Ph.D. [address] [place] [phone] 12/19/2023 10:00 AM CDT Comprehensive Visit Department of Neurology in [place], [place] [address] [place] [phone] Jojo Barrientos M.D. [address] [place] [phone] 12/21/2023 9:00 AM CDT Ancillary Procedure Department of Ophthalmology in [address] [address] 12/21/2023 9:30 AM CDT Procedure visit Department of Ophthalmology in [address] [address] Rachel Collins M.D., Ph.D. [address] [place] [phone] documented as of this encounter Procedures Procedure [...] RST LOS, Neuroradiology NOLVIA PERDOMO, Neuroradiology KYLIE PERDOMO N/A Computed Tomography, Compute d Tomography 07/29/2023 [...]
--- OUTSIDE RECORDS SUMMARY | 2023-10-25 10:04 | XMS_ITS | Encounter Summary ---
Author Organization [facility] Address [address] [place] [address] Care Team Providers Care Training And Documentation Specialist Name Role Phone Unavailable Primary Care Provider Unavailabl e Encounter Details Date Type Department Care Team (Latest Contact Info) Description 07/30/2023 11:15 AM CDT Ancillary Procedure Department of Ophthalmology in [place], [place] [address] [place] [address] Red Gallego M.D. [address] [place] [address] Neuropathy Optic Social History Tobacco Use Types Packs/Day Years Used Date Smoking Tobacco: Unknown [facility] Utilities Answer Date Recorded In the [...] your living situation today? I have a [facility] place to live 07/25/2023 Sex and Gender Information Value Date Recorded Sex Assigned at Male 07/25/2023 8:23 PM CDT Gender Identity Male 07/25/2023 8:23 PM CDT Sexual Orientation Straight 07/25/2023 8: 23 PM CDT documented as of this encounter Plan of Treatment Upcoming Encounters Date Type Department Care Team (Latest Contact Info) Description 2023 12:15 PM CDT Clinical Communication Virtual Review in [place], [place] 200 [place] [address] 12/17/2023 2:30 PM CDT Ancillary Procedure Department of Ophthalmology in [address] [address] Red Gallego M.D. [address] [place] [phone] 12/17/2023 3:00 PM CDT Procedure visit Department of Ophthalmology in [address] [address] Rachel Collins M.D., Ph.D. [address] [place] [phone] 12/17/2023 3:15 PM CDT Ancillary Procedure Department of Ophthalmology in [place], [place] [address] [place] [phone] Rachel Collins M.D., Ph.D. [address] [place] [phone] 12/17/2023 3:45 PM CDT Comprehensive Visit Department of Ophthalmology in [address] [address] Rachel Collins M.D., Ph.D. [address] [place] [phone] 12/18/2023 2:00 PM CDT Ancillary Procedure Department of Ophthalmology in [address] [address] 12/18/2023 2:20 PM CDT Appointment Outpatient Procedure Center in [address] [address] Rachel Collins M.D., Ph.D. [address] [place] [phone] 12/19/2023 10:00 AM CDT Comprehensive Visit Department of Neurology in [address] [address] Jojo Barrientos M.D. [address] [place] [phone] 12/21/2023 9:00 AM CDT Ancillary Procedure Department of Ophthalmology in [address] [address] 12/21/2023 9:30 AM CDT Procedure visit Department of Ophthalmology in [address] [address] Rachel Collins M.D., Ph.D. [address] [place] [phone] documented as of this encounter Procedures Procedure [...]
--- OUTSIDE RECORDS SUMMARY | 2023-10-25 10:04 | XMS_ITS | Encounter Summary ---
Author Organization [facility] Address [address] [place] [address] Care Team Providers Care Corporate Risk Analyst Name Role Phone Unavailable Primary Care Provider Unavailabl e Encounter Details Date Type Department Care Team (Latest Contact Info) Description 07/31/2023 Clinical Communication Department of Ophthalmology in [place], [place] [address] [place] [address] Rachel Collins M.D., Ph.D. [address] [place] [address] Social History Tobacco Use Types Packs/Day Years Used Date Smoking Tobacco: Unknown [facility] Utilities Answer Date Recorded In [...] your living situation today? I have a [facility] place to live 07/25/2023 Sex and Gender Information Value Date Recorded Sex Assigned at Male 07/25/2023 8:23 PM CDT Gender Identity Male 07/25/2023 8:23 PM CDT Sexual Orientation Straight 07/25/2023 8: 23 PM CDT documented as of this encounter Plan of Treatment Upcoming Encounters Date Type Department Care Team (Latest Contact Info) Description 2023 12:15 PM CDT Clinical Communication Virtual Review in [place], [place] 200 [place] [address] 12/17/2023 2:30 PM CDT Ancillary Procedure Department of Ophthalmology in [address] [address] Red Gallego M.D. [address] [place] [phone] 12/17/2023 3:00 PM CDT Procedure visit Department of Ophthalmology in [address] [address] Rcahel Collins M.D., Ph.D. [address] [place] [phone] 12/17/2023 3:15 PM CDT Ancillary Procedure Department of Ophthalmology in [address] [address] Rachel Collins M.D., Ph.D. [address] [place] [phone] 12/17/2023 3:45 PM CDT Comprehensive Visit Department of Ophthalmology in [place], [place] [address] [place] [phone] Rachel Collins M.D., Ph.D. [address] [place] [phone] 12/18/2023 2:00 PM CDT Ancillary Procedure Department of Ophthalmology in [place], [place] [address] [place] [phone] 12/18/2023 2:20 PM CDT Appointment Outpatient Procedure Center in [address] [address] Rachel Collins M.D., Ph.D. [address] [place] [phone] 12/19/2023 10:00 AM CDT Comprehensive Visit Department of Neurology in [place], [place] [address] [place] [phone] Jojo Barrientos M.D. [address] [place] [phone] 12/21/2023 9:00 AM CDT Ancillary Procedure Department of Ophthalmology in [address] [address] 12/21/2023 9:30 AM CDT Procedure visit Department of Ophthalmology in [address] [address] Rachel Collins M.D., Ph.D. [address] [place] [phone] documented as of this encounter Visit Diagnoses Not on filedocumented in this encounter
--- OUTSIDE RECORDS SUMMARY | 2023-10-25 10:04 | XMS_ITS | Encounter Summary ---
Author Organization [facility] Address [address] [place] [address] Care Team Providers Care Multiskill Operator Name Role Phone Unavailable Primary Care Provider Unavailabl e Encounter Details Date Type Department Care Team (Latest Contact Info) Description 07/30/2023 9:30 AM CDT Ancillary Procedure Department of Ophthalmology in [place], [place] [address] [place] [address] Red Gallego M.D. [address] [place] [address] Neuropathy Optic Social History Tobacco Use Types [...] PM CDT Clinical Communication Virtual Review in [place], [place] 200 [place] [address] 12/17/2023 2:30 PM CDT Ancillary Procedure Department of Ophthalmology in [address] [address] Red Gallego M.D. [address] [place] [phone] 12/17/2023 3:00 PM CDT Procedure visit Department of Ophthalmology in [address] [address] Rachel Collins M.D., Ph.D. [address] [place] [phone] 12/17/2023 3:15 PM CDT Ancillary Procedure Department of Ophthalmology in [place], [place] [address] [place] [phone] Rachel Collins M.D., Ph.D. [address] [place] [phone] 12/17/2023 3:45 PM CDT Comprehensive Visit Department of Ophthalmology in [address] [address] Rachel Collins M.D., Ph.D. [address] [place] [phone] 12/18/2023 2:00 PM CDT Ancillary Procedure Department of Ophthalmology in [address] [address] 12/18/2023 2:20 PM CDT Appointment Outpatient Procedure Center in [address] [address] Rachel Collins M.D., Ph.D. [address] [place] [phone] 12/19/2023 10:00 AM CDT Comprehensive Visit Department of Neurology in [address] [address] Jojo Barrientos M.D. [address] [place] [phone] 12/21/2023 9:00 AM CDT Ancillary Procedure Department of Ophthalmology in [address] [address] 12/21/2023 9:30 AM CDT Procedure visit Department of Ophthalmology in [address] [address] Rachel Collins M.D., Ph.D. [address] [place] [phone] documented as of this encounter Procedures Procedure [...] dated 07/30/2023 Red Gallego M.D. OPHTH VISUAL AMPARO Sarmiento OPHTHALMOLOGY IMAGING EXAM documented in this encounter Visit Diagnoses Diagnosis Neuropathy Optic documented in this encounter
--- OUTSIDE RECORDS SUMMARY | 2023-10-25 10:04 | XMS_ITS | Encounter Summary ---
Author Organization [facility] Address [address] [place] [address] Care Team Providers Care Job Setter Honing Name Role Phone Unavailable Primary Care Provider Unavailabl e Encounter Details Date Type Department Care Team (Latest Contact Info) Description 07/30/2023 7:50 AM CDT - 07/30/2023 11:59 PM CDT Hospital Encounter Department of Laboratory Medicine and Pathology, [facility], in [place], [place] [address] [place] [address] Red Gallego M.D. [address] [place] [phone] Loss Visual; Defect Visual Field Discharge Disposition: Home or Self Care Social History Tobacco Use Types Packs/Day Years Used Date Smoking Tobacco: Unknown [facility] Utilities Answer Date Recorded In the past 12 months has [facility] [employer], gas, oil, or water [employer] threatened to shut off services in your [...] Take 40 mg by mouth at bedtime. Eliquis 5 mg tablet Take 5 mg [...] Ellipta 100-62.5-25 mcg inhaler 1 puff daily. brimonidine (ALPHAGAN) 0.2 % ophthalmic solution Administer 1 drop into both eyes 2 (two) times a day. 10/19/2023 predniSONE (DELTASONE) 20 mg tablet Take 3 tablets (60 mg total) by mouth daily. 90 tablet 07/30/2023 08/17/2023 documented as of this encounter Plan of Treatment Upcoming Encounters Date Type Department Care Team (Latest Contact Info) Description 2023 12:15 PM CDT Clinical Communication Virtual Review in [address] [address] 12/17/2023 2:30 PM CDT Ancillary Procedure Department of Ophthalmology in [address] [address] Red Gallego M.D. [address] [place] [phone] 12/17/2023 3:00 PM CDT Procedure visit Department of Ophthalmology in [address] [address] Rachel Collins M.D., Ph.D. [address] [place] [phone] 12/17/2023 3:15 PM CDT Ancillary Procedure Department of Ophthalmology in [address] [address] Rachel Collins M.D., Ph.D. [address] [place] [phone] 12/17/2023 3:45 PM CDT Comprehensive Visit Department of Ophthalmology in [address] [address] Rachel Collins M.D., Ph.D. [address] [place] [phone] 12/18/2023 2:00 PM CDT Ancillary Procedure Department of Ophthalmology in [place], [place] [address] [place] [phone] 12/18/2023 2:20 PM CDT Appointment Outpatient Procedure Center in [place], [place] [address] [place] [phone] Rachel Collins M.D., Ph.D. [address] [place] [phone] 12/19/2023 10:00 AM CDT Comprehensive Visit Department of Neurology in [place], [place] [address] [place] [phone] Jojo Barrientos M.D. [address] [place] [phone] 12/21/2023 9:00 AM CDT Ancillary Procedure Department of Ophthalmology in [address] [address] 12/21/2023 9:30 AM CDT Procedure visit Department of Ophthalmology in [address] [address] Rachel Collins M.D., Ph.D. [address] [place] [phone] documented as of this encounter Procedures Procedure [...] CDT Red Gallego M.D. LAB BLOOD ADD-ON [facility] 200 [place], [place] [address] 200 [place] [address] [facility] 200 [place] [address] * (ABNORMAL) CRP (C-Reactive Protein) (07/30/2023 8:13 AM CDT) C-Reactive Protein (CRP), S 33.6(H) <5.0 mg/L 07/30/2023 9:14 AM CDT DTL Blood (Blood, Venous) 07/30/2023 8:13 AM CDT 07/30/2023 8:52 AM CDT Red Gallego M.D. LAB BLOOD ADD-ON [facility] [address] [place], [place] [address] 200 [place] [address] * (ABNORMAL) Sedimentation Rate (07/30/2023 8:13 AM CDT) Sedimentation Rate, B 42(H) 3 - 28 mm/h 07/30/2023 10:11 AM CDT DTL Blood (Blood, Venous) 07/30/2023 8:13 AM CDT 07/30/2023 8:41 AM CDT Red Gallego M.D. LAB BLOOD ADD-ON [facility] 200 [place], [place] [address] 200 [place] [address] * Creatinine with Estimated GFR (07/30/2023 8:13 AM CDT) Creatinine 1.15 0.74 - 1.35 mg/dL 07/30/2023 9:14 AM CDT DTL Estimated GFR (eGFR) 66 >=60 mL/min/BSA 07/30/2023 9:14 AM CDT DTL Comment: Estimated GFR calculated using the 2020 CKD_EPI creatinine equation. Blood (Blood, Venous) 07/30/2023 8:13 AM CDT 07/30/2023 8:52 AM CDT Red Gallego M.D. LAB BLOOD ADD-ON [address] [address], [facility] DTL [facility] 200 [place] [address] documented in this encounter Visit Diagnoses Diagnosis Loss Visual Defect Visual Field documented in this encounter
--- OUTSIDE RECORDS SUMMARY | 2023-10-25 10:04 | XMS_ITS | Encounter Summary ---
Author Organization [facility] Address [address] [place] [address] Care Team Providers Care Micropaleontologist Name Role Phone Unavailable Primary Care Provider Unavailabl e Encounter Details Date Type Department Care Team (Latest Contact Info) Description 07/30/2023 12:00 PM CDT Ancillary Procedure Department of Ophthalmology in [place], [place] [address] [place] [address] Red Gallego M.D. [address] [place] [address] Neuropathy Optic Social History Tobacco Use Types [...] your living situation today? I have a [facility] place to live 07/25/2023 Sex [...] PM CDT Clinical Communication Virtual Review in [place], [place] 200 [place] [address] 12/17/2023 2:30 PM CDT Ancillary Procedure Department of Ophthalmology in [address] [address] Red Gallego M.D. [address] [place] [phone] 12/17/2023 3:00 PM CDT Procedure visit Department of Ophthalmology in [address] [address] Rachel Collins M.D., Ph.D. [address] [place] [phone] 12/17/2023 3:15 PM CDT Ancillary Procedure Department of Ophthalmology in [place], [place] [address] [place] [phone] Rachel Collins M.D., Ph.D. [address] [place] [phone] 12/17/2023 3:45 PM CDT Comprehensive Visit Department of Ophthalmology in [address] [address] Rachel Collins M.D., Ph.D. [address] [place] [phone] 12/18/2023 2:00 PM CDT Ancillary Procedure Department of Ophthalmology in [address] [address] 12/18/2023 2:20 PM CDT Appointment Outpatient Procedure Center in [address] [address] Rachel Collins M.D., Ph.D. [address] [place] [phone] 12/19/2023 10:00 AM CDT Comprehensive Visit Department of Neurology in [address] [address] Jojo Barrientos M.D. [address] [place] [phone] 12/21/2023 9:00 AM CDT Ancillary Procedure Department of Ophthalmology in [address] [address] 12/21/2023 9:30 AM CDT Procedure visit Department of Ophthalmology in [address] [address] Rachel Collins M.D., Ph.D. [address] [place] [phone] documented as of this encounter Procedures Procedure [...]
--- OUTSIDE RECORDS SUMMARY | 2023-10-25 10:04 | XMS_ITS | Encounter Summary ---
Author Organization [facility] Address [address] [place] [address] Care Team Providers Care Mobility Engineer Name Role Phone Unavailable Primary Care Provider Unavailabl e Reason for Visit * Reason Onset Date Comments Appt Request 07/30/2023 Encounter Details Date Type Department Care Team (Latest Contact Info) Description 07/30/2023 Clinical Communication Department of Ophthalmology in [place], [place] [address] [place] [address] Provider, Unknown Appt Request Social History Tobacco Use Types Packs/Day Years Used Date Smoking Tobacco: Unknown [facility] Utilities Answer Date Recorded In the [...] PM CDT Clinical Communication Virtual Review in [address] [address] 12/17/2023 2:30 PM CDT Ancillary Procedure Department of Ophthalmology in [address] [address] Red Gallego M.D. [address] [place] [phone] 12/17/2023 3:00 PM CDT Procedure visit Department of Ophthalmology in [address] [address] Rachel Collins M.D., Ph.D. [address] [place] [phone] 12/17/2023 3:15 PM CDT Ancillary Procedure Department of Ophthalmology in [address] [address] Rachel Collins M.D., Ph.D. [address] [place] [phone] 12/17/2023 3:45 PM CDT Comprehensive Visit Department of Ophthalmology in [place], [place] [address] [place] [address] Rachel Collins M.D., Ph.D. [address] [place] [phone] 12/18/2023 2:00 PM CDT Ancillary Procedure Department of Ophthalmology in [place], [place] [address] [place] [phone] 12/18/2023 2:20 PM CDT Appointment Outpatient Procedure Center in [place], [place] [address] [place] [phone] Rachel Collins M.D., Ph.D. [address] [place] [phone] 12/19/2023 10:00 AM CDT Comprehensive Visit Department of Neurology in [place], [place] [address] [place] [phone] Jojo Barrientos MAmari. [address] [place] [phone] 12/21/2023 9:00 AM CDT Ancillary Procedure Department of Ophthalmology in [place], [place] [address] [place] [phone] 12/21/2023 9:30 AM CDT Procedure visit Department of Ophthalmology in [address] [address] Rachel Collins M.D., Ph.D. [address] [place] [phone] documented as of this encounter Visit Diagnoses Not on filedocumented in this encounter
--- OUTSIDE RECORDS SUMMARY | 2023-10-25 10:04 | XMS_ITS | Encounter Summary ---
Author Organization [facility] Address [address] [place] [address] Care Team Providers Care Power Chisel Operator Name Role Phone Unavailable Primary Care Provider Unavailabl e Reason for Referral * Outpatient (Routine) - Authorized Specialty Diagnoses / Procedures Referred By Janeth phillips Referred To Contact Ophthalmology Diagnoses Ischemia Retina Glaucoma Neovascular Jerica Gallego M.D. [address] [place] [address] [facility] Referral ID Status Reason Start Date Expiration Date V isits Requested Visits Authorized [id number] Authorized 07/30/2023 01/28/2025 1 1 Scheduling Instructions Please try to schedule within 1-2 weeks Reason for Visit * Reason Comments Decreased Visual Acuity * Appointment Request (Routine) - Closed Specialty Diagnoses / Procedures Referred By Janeth phillips Referred To Contact Ophthalmology Diagnoses Neuropathy Optic Ischemic Graciela Giron O.D. 2019 [address]ATE, [facility] [place] [address] Referral ID Status Reason Start Date Expiration Date Visits Re quested Visits Authorized [id number] Closed 04/27/2023 04/26/2024 1 1 Encounter Details Date Type Department Care Team (Latest Contact Info) Description 07/30/2023 3:15 PM CDT Comprehensive Visit Department of Ophthalmology in [place], [place] [address] [place] [phone] Jerica Gallego M.D. [address] [place] [address] Ischemia Retina (Primary Dx); Arteritis Temporal (HCC); [...] your living situation today? I have a [facility] place to live 07/25/2023 [...] the patient/ to reschedule the visit with [facility] for biopsy when they know when the [...] PM CDT Clinical Communication Virtual Review in [place], [place] 200 [place] [address] 12/17/2023 2:30 PM CDT Ancillary Procedure Department of Ophthalmology in [address] [address] Jerica Gallego M.D. [address] [place] [phone] 12/17/2023 3:00 PM CDT Procedure visit Department of Ophthalmology in [address] [address] Rachel Collins M.D., Ph.D. [address] [place] [phone] 12/17/2023 3:15 PM CDT Ancillary Procedure Department of Ophthalmology in [place], [place] [address] [place] [phone] Rachel Collins M.D., Ph.D. [address] [place] [phone] 12/17/2023 3:45 PM CDT Comprehensive Visit Department of Ophthalmology in [address] [address] Rachel Collins M.D., Ph.D. [address] [place] [phone] 12/18/2023 2:00 PM CDT Ancillary Procedure Department of Ophthalmology in [address] [address] 12/18/2023 2:20 PM CDT Appointment Outpatient Procedure Center in [address] [address] Rachel Collins M.D., Ph.D. [address] [place] [phone] 12/19/2023 10:00 AM CDT Comprehensive Visit Department of Neurology in [address] [address] Jojo Barrientos M.D. [address] [place] [phone] 12/21/2023 9:00 AM CDT Ancillary Procedure Department of Ophthalmology in [address] [address] 12/21/2023 9:30 AM CDT Procedure visit Department of Ophthalmology in [address] [address] Rachel Collins M.D., Ph.D. 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
--- OUTSIDE RECORDS SUMMARY | 2023-10-25 10:04 | XMS_ITS | Encounter Summary ---
Author Organization [facility] Address [address] [place] [address] Care Team Providers Care Security Researcher Name Role Phone Unavailable Primary Care Provider Unavailabl e Encounter Details Date Type Department Care Team (Late st Contact Info) Description 07/30/2023 2:10 PM CDT Ancillary Procedure Department of Ophthalmology in [place], [place] [address] [place] [address] Red Gallego M.D. [address] [place] [address] Social History Tobacco Use Types Packs/Day Years Used Date Smoking Tobacco: Unknown [facility] Utilities Answer Date Recorded In the [...] PM CDT Clinical Communication Virtual Review in [place], [place] 200 [place] [address] 12/17/2023 2:30 PM CDT Ancillary Procedure Department of Ophthalmology in [address] [address] Red Gallego M.D. [address] [place] [phone] 12/17/2023 3:00 PM CDT Procedure visit Department of Ophthalmology in [address] [address] Rachel Collins M.D., Ph.D. [address] [place] [phone] 12/17/2023 3:15 PM CDT Ancillary Procedure Department of Ophthalmology in [place], [place] [address] [place] [phone] Rachel Collins M.D., Ph.D. [address] [place] [phone] 12/17/2023 3:45 PM CDT Comprehensive Visit Department of Ophthalmology in [address] [address] Rachel Collins M.D., Ph.D. [address] [place] [phone] 12/18/2023 2:00 PM CDT Ancillary Procedure Department of Ophthalmology in [address] [address] 12/18/2023 2:20 PM CDT Appointment Outpatient Procedure Center in [address] [address] Rachel Collins M.D., Ph.D. [address] [place] [phone] 12/19/2023 10:00 AM CDT Comprehensive Visit Department of Neurology in [address] [address] Jojo Barrientos M.D. [address] [place] [phone] 12/21/2023 9:00 AM CDT Ancillary Procedure Department of Ophthalmology in [address] [address] 12/21/2023 9:30 AM CDT Procedure visit Department of Ophthalmology in [address] [address] Rachel Collins M.D., Ph.D. [address] [place] [phone] documented as of this encounter Visit Diagnoses Not on filedocumented in this encounter
--- OUTSIDE RECORDS SUMMARY | 2023-10-25 10:04 | XMS_ITS | Encounter Summary ---
Author Organization [facility] Address [address] [place] [address] Care Team Providers Care Economics Lecturer Name Role Phone Unavailable Primary Care Provider Unavailabl e Encounter Details Date Type Department Care Team (Late st Contact Info) Description 07/30/2023 9:40 AM CDT Ancillary Procedure Department of Ophthalmology Social History Tobacco Use Types Packs/Day Years Used Date Smoking Tobacco: Unknown [facility] Utilities Answer Date Recorded In the past 12 months has [employer], gas, oil, or water [employer] threatened to shut off services in your [...] PM CDT Clinical Communication Virtual Review in [place], [place] 200 [place] [address] 12/17/2023 2:30 PM CDT Ancillary Procedure Department of Ophthalmology in [address] [address] Red Gallego M.D. [address] [place] [phone] 12/17/2023 3:00 PM CDT Procedure visit Department of Ophthalmology in [address] [address] Rachel Collins M.D., Ph.D. [address] [place] [phone] 12/17/2023 3:15 PM CDT Ancillary Procedure Department of Ophthalmology in [address] [address] Rachel Collins M.D., Ph.D. [address] [place] [phone] 12/17/2023 3:45 PM CDT Comprehensive Visit Department of Ophthalmology in [address] [address] Rachel Collins M.D., Ph.D. [address] [place] [phone] 12/18/2023 2:00 PM CDT Ancillary Procedure Department of Ophthalmology in [place], [place] [address] [place] [phone] 12/18/2023 2:20 PM CDT Appointment Outpatient Procedure Center in [place], [place] [address] [place] [phone] Rachel Collins M.D., Ph.D. [address] [place] [phone] 12/19/2023 10:00 AM CDT Comprehensive Visit Department of Neurology in [address] [address] Jojo Barrientos M.D. [address] [place] [phone] 12/21/2023 9:00 AM CDT Ancillary Procedure Department of Ophthalmology in [address] [address] 12/21/2023 9:30 AM CDT Procedure visit Department of Ophthalmology in [address] [address] Rachel Collins M.D., Ph.D. [address] [place] [phone] documented as of this encounter Procedures Procedure [...]
--- OUTSIDE RECORDS SUMMARY | 2023-10-25 10:04 | XMS_ITS | Encounter Summary ---
Author Organization [facility] Address [address] [place] [address] Care Team Providers Care Sales Representative Printing Paper Name Role Phone Unavailable Primary Care Provider Unavailabl e Encounter Details Date Type Department Care Team (Late st Contact Info) Description 07/30/2023 Episode Changes Department of Ophthalmology in [place], [place] [address] [place] [address] Giana Mancilla Social History Tobacco Use Types [...] your living situation today? I have a [facility] place to live 07/25/2023 Sex and Gender Information Value Date Recorded Sex Assigned at Male 07/25/2023 8:23 PM CDT Gender Identity Male 07/25/2023 8:23 PM CDT Sexual Orientation Straight 07/25/2023 8: 23 PM CDT documented as of this encounter Plan of Treatment Upcoming Encounters Date Type Department Care Team (Latest Contact Info) Description 2023 12:15 PM CDT Clinical Communication Virtual Review in [address] [address] 12/17/2023 2:30 PM CDT Ancillary Procedure Department of Ophthalmology in [address] [address] Red Gallego M.D. [address] [place] [phone] 12/17/2023 3:00 PM CDT Procedure visit Department of Ophthalmology in [address] [address] Rachel Collins M.D., Ph.D. [address] [place] [phone] 12/17/2023 3:15 PM CDT Ancillary Procedure Department of Ophthalmology in [address] [address] Rachel Collins M.D., Ph.D. [address] [place] [phone] 12/17/2023 3:45 PM CDT Comprehensive Visit Department of Ophthalmology in [place], [place] [address] [place] [phone] Rachel Collins M.D., Ph.D. [address] [place] [phone] 12/18/2023 2:00 PM CDT Ancillary Procedure Department of Ophthalmology in [place], [place] [address] [place] [phone] 12/18/2023 2:20 PM CDT Appointment Outpatient Procedure Center in [address] [address] Rachel Collins M.D., Ph.D. [address] [place] [phone] 12/19/2023 10:00 AM CDT Comprehensive Visit Department of Neurology in [place], [place] [address] [place] [phone] Jojo Barrientos M.D. [address] [place] [phone] 12/21/2023 9:00 AM CDT Ancillary Procedure Department of Ophthalmology in [address] [address] 12/21/2023 9:30 AM CDT Procedure visit Department of Ophthalmology in [address] [address] Rachel Collins M.D., Ph.D. [address] [place] [phone] documented as of this encounter Visit Diagnoses Not on filedocumented in this encounter
--- OUTSIDE RECORDS SUMMARY | 2023-10-25 10:04 | XMS_ITS | Encounter Summary ---
Author Organization [facility] Address [address] [place] [address] Care Team Providers Care Instructor Trainer Canine Service Name Role Phone Unavailable Primary Care Provider Unavailabl e Encounter Details Date Type Department Care Team (Late st Contact Info) Description 07/30/2023 3:20 PM CDT Ancillary Procedure Department of Ophthalmology Social History Tobacco Use Types Packs/Day Years Used Date Smoking Tobacco: Unknown [facility] Utilities Answer Date Recorded In the past 12 months has [employer], gas, oil, or water [employer] threatened to shut off services in your [...] PM CDT Clinical Communication Virtual Review in [place], [place] 200 [place] [address] 12/17/2023 2:30 PM CDT Ancillary Procedure Department of Ophthalmology in [address] [address] Red Gallego M.D. [address] [place] [phone] 12/17/2023 3:00 PM CDT Procedure visit Department of Ophthalmology in [address] [address] Rachel Collins M.D., Ph.D. [address] [place] [phone] 12/17/2023 3:15 PM CDT Ancillary Procedure Department of Ophthalmology in [address] [address] Rachel Collins M.D., Ph.D. [address] [place] [phone] 12/17/2023 3:45 PM CDT Comprehensive Visit Department of Ophthalmology in [address] [address] Rachel Collins M.D., Ph.D. [address] [place] [phone] 12/18/2023 2:00 PM CDT Ancillary Procedure Department of Ophthalmology in [place], [place] [address] [place] [phone] 12/18/2023 2:20 PM CDT Appointment Outpatient Procedure Center in [place], [place] [address] [place] [phone] Rachel Collins M.D., Ph.D. [address] [place] [phone] 12/19/2023 10:00 AM CDT Comprehensive Visit Department of Neurology in [address] [address] Jojo Barrientos M.D. [address] [place] [phone] 12/21/2023 9:00 AM CDT Ancillary Procedure Department of Ophthalmology in [place], [place] [address] [place] [phone] 12/21/2023 9:30 AM CDT Procedure visit Department of Ophthalmology in [address] [address] Rachel Collins M.D., Ph.D. [address] [place] [phone] documented as of this encounter Procedures Procedure [...]
--- OUTSIDE RECORDS SUMMARY | 2023-10-25 10:04 | XMS_ITS | Encounter Summary ---
Author Organization [facility] Address [address] [place] [address] Care Team Providers Care Director Of Hotel Name Role Phone Unavailable Primary Care Provider Unavailabl e Encounter Details Date Type Department Care Team (Late st Contact Info) Description 07/30/2023 Ancillary Procedure Department of Ophthalmology Social History Tobacco Use Types Packs/Day Years Used Date Smoking Tobacco: Unknown [facility] Utilities Answer Date Recorded In the past 12 months has th e electric, gas, oil, or water [employer] threatened to shut off services in your [...] PM CDT Clinical Communication Virtual Review in [address] [phone] 12/17/2023 2:30 PM CDT Ancillary Procedure Department of Ophthalmology in [address] [address] Red Gallego M.D. [address] [place] [phone] 12/17/2023 3:00 PM CDT Procedure visit Department of Ophthalmology in [address] [address] Rachel Collins M.D., Ph.D. [address] [place] [phone] 12/17/2023 3:15 PM CDT Ancillary Procedure Department of Ophthalmology in [address] [address] Rachel Collins M.D., Ph.D. [address] [place] [phone] 12/17/2023 3:45 PM CDT Comprehensive Visit Department of Ophthalmology in [address] [address] Rachel Collins M.D., Ph.D. [address] [place] [phone] 12/18/2023 2:00 PM CDT Ancillary Procedure Department of Ophthalmology in [place], [place] [address] [place] [phone] 12/18/2023 2:20 PM CDT Appointment Outpatient Procedure Center in [place], [place] [address] [place] [phone] Rachel Collins M.D., Ph.D. [address] [place] [phone] 12/19/2023 10:00 AM CDT Comprehensive Visit Department of Neurology in [place], [place] [address] [place] [phone] Jojo Barrientos M.D. [address] [place] [phone] 12/21/2023 9:00 AM CDT Ancillary Procedure Department of Ophthalmology in [place], [place] [address] [place] [phone] 12/21/2023 9:30 AM CDT Procedure visit Department of Ophthalmology in [address] [address] Rachel Collins M.D., Ph.D. [address] [place] [phone] documented as of this encounter Procedures Procedure [...]
--- OUTSIDE RECORDS SUMMARY | 2023-10-25 10:04 | XMS_ITS | Encounter Summary ---
Author Organization [facility] Address [address] [place] [address] Care Team Providers Care Youth Services Specialist Name Role Phone Unavailable Primary Care Provider Unavailabl e Encounter Details Date Type Department Care Team (Late st Contact Info) Description 07/30/2023 10:45 AM CDT Ancillary Procedure Department of Ophthalmology Social History Tobacco Use Types Packs/Day Years Used Date Smoking Tobacco: Unknown [facility] Utilities Answer Date Recorded In the past 12 months has [employer], gas, oil, or water [employer] threatened to shut off services in your [...] your living situation today? I have a [facility] place to live 07/25/2023 Sex and Gender Information Value Date Recorded Sex Assigned at Male 07/25/2023 8:23 PM CDT Gender Identity Male 07/25/2023 8:23 PM CDT Sexual Orientation Straight 07/25/2023 8: 23 PM CDT documented as of this encounter Plan of Treatment Upcoming Encounters Date Type Department Care Team (Latest Contact Info) Description 2023 12:15 PM CDT Clinical Communication Virtual Review in [place], [place] 200 [place] [address] 12/17/2023 2:30 PM CDT Ancillary Procedure Department of Ophthalmology in [address] [address] Red Gallego M.D. [address] [place] [phone] 12/17/2023 3:00 PM CDT Procedure visit Department of Ophthalmology in [address] [address] Rachel Collins M.D., Ph.D. [address] [place] [phone] 12/17/2023 3:15 PM CDT Ancillary Procedure Department of Ophthalmology in [address] [address] Rachel Collins M.D., Ph.D. [address] [place] [phone] 12/17/2023 3:45 PM CDT Comprehensive Visit Department of Ophthalmology in [address] [address] Rachel Collins M.D., Ph.D. [address] [place] [phone] 12/18/2023 2:00 PM CDT Ancillary Procedure Department of Ophthalmology in [place], [place] [address] [place] [phone] 12/18/2023 2:20 PM CDT Appointment Outpatient Procedure Center in [address] [address] Rachel Collins M.D., Ph.D. [address] [place] [phone] 12/19/2023 10:00 AM CDT Comprehensive Visit Department of Neurology in [address] [address] Jjoo Barrientos M.D. [address] [place] [phone] 12/21/2023 9:00 AM CDT Ancillary Procedure Department of Ophthalmology in [address] [address] 12/21/2023 9:30 AM CDT Procedure visit Department of Ophthalmology in [address] [address] Rachel Collins M.D., Ph.D. [address] [place] [phone] documented as of this encounter Procedures Procedure [...]
--- OUTSIDE RECORDS SUMMARY | 2023-10-25 10:05 | XMS_ITS | Encounter Summary ---
Author Organization [facility] Address [address] [place] [address] Care Team Providers Care Supervisor [employer] Name Role Phone Unavailable Primary Care Provider Unavailabl e Reason for Visit * Reason Onset Date Comments Appt Request 07/25/2023 Encounter Details Date Type Department Care Team (Latest Contact Info) Description 07/25/2023 Clinical Communication Department of Ophthalmology in [place], [place] [address] [place] [phone] Red Gallego M.D. [address] [place] [address] Appt Request Social History Tobacco Use Types Packs/Day Years Used Date Smoking Tobacco: Unknown [facility] Utilities Answer Date Recorded In the [...] CDT Clinical Communication Virtual Review in [address] [address] 12/17/2023 2:30 PM CDT Ancillary Procedure Department of Ophthalmology in [address] [address] Red Gallego M.D. [address] [place] [phone] 12/17/2023 3:00 PM CDT Procedure visit Department of Ophthalmology in [address] [address] Rachel Collins M.D., Ph.D. [address] [place] [phone] 12/17/2023 3:15 PM CDT Ancillary Procedure Department of Ophthalmology in [address] [address] Rachel Collins M.D., Ph.D. [address] [place] [phone] 12/17/2023 3:45 PM CDT Comprehensive Visit Department of Ophthalmology in [place], [place] [address] [place] [phone] Rachel Collins M.D., Ph.D. [address] [place] [phone] 12/18/2023 2:00 PM CDT Ancillary Procedure Department of Ophthalmology in [place], [place] [address] [place] [phone] 12/18/2023 2:20 PM CDT Appointment Outpatient Procedure Center in [place], [place] [address] [place] [phone] Rachel Collins M.D., Ph.D. [address] [place] [phone] 12/19/2023 10:00 AM CDT Comprehensive Visit Department of Neurology in [place], [place] [address] [place] [phone] Jojo Barrientos M.D. [address] [place] [phone] 12/21/2023 9:00 AM CDT Ancillary Procedure Department of Ophthalmology in [place], [place] [address] [place] [phone] 12/21/2023 9:30 AM CDT Procedure visit Department of Ophthalmology in [place], [place] [address] [place] [phone] Rachel Collins M.D., Ph.D. [address] [place] [phone] documented as of this encounter Visit Diagnoses Not on filedocumented in this encounter
--- OUTSIDE RECORDS SUMMARY | 2023-10-25 10:05 | XMS_ITS | Encounter Summary ---
Author Organization [facility] Address [address] [place] [address] Care Team Providers Care Meat Processor Name Role Phone Unavailable Primary Care Provider Unavailabl e Reason for Visit * MRI/CAT/PET Scan (Routine) - Closed Specialty Diagnoses / Procedures Referred By Janeth t Referred To Contact Radiology Diagnoses Neuropathy Optic Procedures MR Examination Not Performed MR Orbits without and with IV Contrast Red Gallego M.D. [address] [place] [phone] [facility] Referral ID Status Reason Start Date Expiration Date Visits Re quested Visits Authorized [id number] Closed 07/04/2023 07/03/2024 1 1 Encounter Details Date Type Department Care Team (Latest Contact Info) Description 07/24/2023 2:40 PM CDT - 07/24/2023 11:59 PM CDT Hospital Encounter Department of Radiology, [facility] in [place], [place] [address] [place] [address] Red Galleog M.D. [address] [place] [phone] Neuropathy Optic Discharge Disposition: Home or Self [...] living situation today? I have a [facility] place to live 07/25/2023 [...] Phone number of accompanying adult wait in [facility] Does patient have an allergy to [...] PM CDT Clinical Communication Virtual Review in [address] [address] 12/17/2023 2:30 PM CDT Ancillary Procedure Department of Ophthalmology in [address] [address] Red Gallego M.D. [address] [place] [phone] 12/17/2023 3:00 PM CDT Procedure visit Department of Ophthalmology in [address] [address] Rachel Collins M.D., Ph.D. [address] [place] [phone] 12/17/2023 3:15 PM CDT Ancillary Procedure Department of Ophthalmology in [address] [address] Rachel Collins M.D., Ph.D. [address] [place] [phone] 12/17/2023 3:45 PM CDT Comprehensive Visit Department of Ophthalmology in [address] [address] Rachel Collins M.D., Ph.D. [address] [place] [phone] 12/18/2023 2:00 PM CDT Ancillary Procedure Department of Ophthalmology in [address] [place] [address] 12/18/2023 2:20 PM CDT Appointment Outpatient Procedure Center in [place], [place] [address] [place] [phone] Rachel Collins M.D., Ph.D. [address] [place] [phone] 12/19/2023 10:00 AM CDT Comprehensive Visit Department of Neurology in [place], [place] [address] [place] [phone] Jojo Barrientos M.D. [address] [place] [phone] 12/21/2023 9:00 AM CDT Ancillary Procedure Department of Ophthalmology in [address] [address] 12/21/2023 9:30 AM CDT Procedure visit Department of Ophthalmology in [place], [place] [address] [place] [phone] Rachel Collins M.D., Ph.D. [address] [place] [phone] documented as of this encounter Procedures Procedure [...]
--- OUTSIDE RECORDS SUMMARY | 2023-10-25 10:05 | XMS_ITS | Clinical Summary ---
Author Organization [employer] [facility] Address [place], [place] [address] Care Team Providers Care Public Affairs Specialist Name Role Phone Marcio Gonzalez MD Primary Care Provider [phone] Allergies Active Allergy Reactions Criticality Noted Date [...] Daily 1 Each 11 12/29/19 23 Active aspirin chewable 81 mg chewable tablet Chew 81 mg by mouth once daily with a meal. Active dilTIAZem (DILACOR XR; DILTIA XT) 180 mg Extended-Release capsuleIndications :Paroxysmal atrial fibrillation (HC) Take 1 Capsule (180 mg) by mouth once daily. 90 Capsule 06/19/19 24 Active brimonidine (ALPHAGAN) 0.2 % ophthalmic solution Place 1 Drop into left eye two times daily. Active fluticasone eji-tuyvgergdhci-g ilanterol (Trelegy Ellipta) 100-62.5-25 mcg inhalerIndications :Panlobular [...] WOUND PAIN OR BACK PAIN 30 Tablet 10/22/19 24 Active mirtazapine (REMERON) 7.5 mg tabletIndications: Chronic insomnia Take 1 Tablet (7.5 mg) by mouth at bedtime. Please take at 7PM 90 Tablet 10/23/19 24 Active mirtazapine (REMERON) 7.5 mg tabletIndications: Chronic insomnia Take 1 Tablet (7.5 mg) by mouth at bedtime. Please take at 7PM 90 Tablet 2 01/25/20 23 024 Discontinued(Re order (E-cancel not sent)) traMADoL (ULTRAM) 50 mg tabletIndications: Right leg pain TAKE 1 TABLET BY MOUTH DAILY NEEDED FOR WOUND PAIN OR BACK PAIN 30 Tablet 09/21/19 24 024 Discontinued Active Problems Problem Noted Date Diagnosed Date History of stroke 07/27/2023 Overview: left MCA territory ischemic stroke, pmh of HLD, tobacco use, morbid obesity, COPD, BRITNEY and chronic back pain who is following up in stroke clinic today. He had presented to [facility] on 11/09/2018 with difficulty [...] Word Finding Difficulties Recommended follow up at [facility] Stroke Clinic. Speech [...] Problem Noted Date Diagnosed Date Resolved Date [facility] (current) use of anticoagulants 07/07/2009 09/21/2010 Overview: INR Goal Range: 1.8 - 2.5 Encounters Date Type Department Care Team Description 10/22/2023 Refill [facility] [address] [place] [address] Dorian Draper MD Refill Request (Mirtazapine 7.5mg) 10/21/2023 Refill [facility] [address] [place] [address] Marcio Gonzalez MD Refill Request (Tramadol) 09/20/2023 Refill [facility] [address] [place] [address] Marcio Gonzalez MD Refill Request (Tramadol) 09/18/2023 Telephone [facility] [address] [facility] [address] [place] [address] Dave Maya MD Medication Management (eliquis) 08/10/2023 Refill [facility] [address] [facility] [address] Marcio Gonzalez MD Refill Request (Trelegy Ellipta) 08/08/2023 2:00 PM CDT Office Visit [facility] [address] [facility] [address] Marcio Gonzalez MD Hospital F/U (Pneumonia /[facility] 07/29 - 08/01/Patient reports doing better) 08/08/2023 Travel 07/31/2023 Orders Only [facility] Scanner 1 scan: (1-Ord) [facility] 07/30/2023 Orders Only [facility] Scanner 1 scan: (1-Ord) [place], XR CHEST 1V PORTABLE, 07/30/2023 07/27/2023 10:30 AM CDT Office Visit [facility] [address] [place] [address] Marcio Gonzalez MD Medication Management (Tramadol follow up//Spouse has questions about atenolol - not a current medication) 07/27/2023 Travel from Last 3 Months Immunizations Name Administration Dates Next Due COVID-19 Vaccine Spikevax (M oderna 50mcg/0.5mL) 12YO+ 8542-1496 Formula PF 01/17/2023 COVID-19 vaccine (Camalize SLBioNTPivot 30mcg/0.3mL) P F, MDV 06/22/2020,06/01/2020 Influenza, High-dose [...] Respiratory Rate 18 05/02/2023 10:5 7 AM [facility] Oxygen Saturation 92% 08/08/2023 2:12 PM CDT Inhaled Oxygen Concentration - - Weight 134.9 kg (297 lb 4.8 oz) 024 10:38 AM CDT Height 185.4 cm (6' 1) 05/22/2023 9:53 AM [facility] Body Mass Index 39.22 05/22/2023 9:53 AM [facility] Plan of Treatment Upcoming Encounters Date Type Department Care Team (Late st Contact Info) Description 11/13/2023 10:00 AM CDT Office Visit [facility] [address] [facility] [address] [place] [phone] Radha Carlin MBBS [address] [facility] [address] [place] [address] Health Maintenance Due Date Last Done Comments [...] Completed 02/08/2022 Medical Devices Implanted Type Area Rubber Mixer Device Identifier Shelf Expiration Date Model / Serial / Lot Tissue Pericardium 0.8x8cm Photofix Bovine - [id number] Implanted:Qty: 1 on 02/13/2022 by Kael Hernandez MD at [facility] Cv Implants Right: Groin [employer] 02/27/2022 PFP 0.8X8 / / [id number] Stent Aaa [id number] Excluder Ibc - [id number] Implanted:Qty: 1 on 02/13/2022 by Kael Hernandez MD at [facility] Right: Iliac Artery [employer] 2024 [id number] / [id number] / Stent Aaa [id number] Excluder Iic - [id number] Implanted:Qty: 1 on 02/13/2022 by Kael Hernandez MD at [facility] Right: Iliac Artery [employer] 04/20/2024 [id number] / [id number] / Procedures Procedure Name Priority Date/Time Associated [...] mandie Non-React mandie 02/09/2022 2:56 PM CDT [facility] Comment:Antibodies to HCV no t detected; does not exclude the possibility of exposure to HCV. Blood BLOOD SPECIMEN / Unknown Venipuncture / Unknown 02/08/2022 11:20 AM CDT 02/08/2022 11:27 AM CDT Marcio Gonzalez MD SEND OUTS [facility] [address] [place] [address], * CT CHEST SCREENING LOW DOSE WO [...] 8:56:18 AM Pediatric and Body Radiology [email or web address] Narrative 11/02/2021 9:43 AM CDT For [...] Documents on File Type Date Recorded Patient Records Analyst Expl anation Treatment Guidelines 02/11/2022 * Full Code (Latest Code Status on File) Date Activated Date Inactivated Comments 02/13/2022 1:00 PM 02/14/2022 5:39 PM Question Answer Comments Code Status Discussion: Reviewed Preferences * Full Code Date Activated Date Inactivated Comments 02/13/2022 6:05 AM 02/13/2022 12:59 PM Question Answer Comments Code Status Discussion: Unable to Assess Preferences, Provider to review later Care Teams Public Affairs Specialist Relationship Specialty Start Date End Date Marcio Gonzalez MD [address] [place] [address] PCP - General Family Practice 12/20/15
--- OUTSIDE RECORDS SUMMARY | 2023-10-25 10:05 | XMS_ITS | Encounter Summary ---
Author Organization [facility] Address [address] [place] [address] Care Team Providers Care Carpentry Specialist Name Role Phone Unavailable Primary Care Provider Unavailabl e Encounter Details Date Type Department Care Team (Late st Contact Info) Description 07/03/2023 Orders Only Department of Ophthalmology in [place], [place] [address] [place] [address] Red Gallego M.D. [address] [place] [address] Social History Tobacco Use Types Packs/Day Years Used Date Smoking Tobacco: Unknown [facility] Utilities Answer Date Recorded In the past [...] your living situation today? I have a [facility] place to live 07/25/2023 [...] PM CDT Clinical Communication Virtual Review in [address] [address] 12/17/2023 2:30 PM CDT Ancillary Procedure Department of Ophthalmology in [address] [address] Red Gallego M.D. [address] [place] [phone] 12/17/2023 3:00 PM CDT Procedure visit Department of Ophthalmology in [address] [address] Rachel Collins M.D., Ph.D. [address] [place] [phone] 12/17/2023 3:15 PM CDT Ancillary Procedure Department of Ophthalmology in [address] [address] Rachel Collins M.D., Ph.D. [address] [place] [phone] 12/17/2023 3:45 PM CDT Comprehensive Visit Department of Ophthalmology in [place], [place] [address] [place] [phone] Rachel Collins M.D., Ph.D. [address] [place] [phone] 12/18/2023 2:00 PM CDT Ancillary Procedure Department of Ophthalmology in [place], [place] [address] [place] [phone] 12/18/2023 2:20 PM CDT Appointment Outpatient Procedure Center in [address] [address] Rachel Collins M.D., Ph.D. [address] [place] [phone] 12/19/2023 10:00 AM CDT Comprehensive Visit Department of Neurology in [address] [address] Jojo Barrientos M.D. [address] [place] [phone] 12/21/2023 9:00 AM CDT Ancillary Procedure Department of Ophthalmology in [address] [address] 12/21/2023 9:30 AM CDT Procedure visit Department of Ophthalmology in [address] [address] Rachel Collins M.D., Ph.D. [address] [place] [phone] documented as of this encounter Visit Diagnoses Not on filedocumented in this encounter
== END 2023-10-25 10:01 | disposition home or self-care (01) ==
LOC: WOUND 10:00
PROVIDERS: PCP Family Medicine; Visit Provider Nurse Practitioner Family
DX: I87.311 Chronic venous hypertension (idiopathic) with ulcer of right lower extremity (principal); L97.212 Non-pressure chronic ulcer of right calf with fat layer exposed; I89.0 Lymphedema, not elsewhere classified
CPT/HCPCS: 97597

== ENCOUNTER 2023-11-08 10:02 | Outpatient (CLI) | payer MEDICARE, BC, SELFPAY ==
--- OUTSIDE RECORDS SUMMARY | 2023-11-08 10:04 | XMS_ITS | Referral Summary ---
Author Organization [facility] Address [address] [place] [address] Care Team Providers Care Window Clerk Name Role Phone Unavailable Primary Care Provider Unavailabl e Source Comments Patient records contain information from all sites at [facility]. For routine questions regarding patient records, call [phone] during business hours, M-F 8:00 AM - 5:00 PM Central Time. Record requests for emergency care only can be directed to [phone] at any time.[facility] Encounters Date Type Department Care Team Description 11/02/2023 12:45 PM CDT Office Visit Department of Ophthalmology in [place], [place] [address] [place] [address] Suri Izquierdo M.D. Hemorrhage Vitreous Left (HCC) (Primary Dx); Ischemia Retina; Occlusion Carotid Artery Left 10/23/2023 2:54 PM CDT - 10/23/2023 11:59 PM CDT Hospital Encounter Outpatient Procedure Center in [place], [place] [address] [place] [address] Shelia Laughlin M.D. Discharge Disposition: Home or Self Care 10/23/2023 Orders Only Department of Ophthalmology in [place], [place] [address] [place] [phone] Anabel Lang C.O.A. Glaucoma Neovascular (Primary Dx) 10/23/2023 2:20 PM CDT Ancillary Procedure Department of Ophthalmology in [place], [place] [address] [place] [address] 10/23/2023 1:51 PM CDT - 10/23/2023 2:53 PM CDT Hospital Encounter Outpatient Procedure Center in [place], [place] [address] [place] [address] Suri Izquierdo M.D. Glaucoma Neovascular Discharge Disposition: Home or Self Care 10/23/2023 12:30 PM CDT Office Visit Department of Ophthalmology in [place], [place] [address] [place] [address] Suri Izquierdo M.D. Occlusion Carotid Artery Left (Primary Dx); Ischemia Retina; Glaucoma Neovascular; Neuropathy Optic Ischemic Bilateral 10/19/2023 Orders Only Department of Ophthalmology in [place], [place] [address] [place] [address] Juan David Cabrales M.D. Glaucoma Neovascular (Primary Dx); Hemorrhage Vitreous Left (HCC) 10/19/2023 Clinical Communication Department of Ophthalmology in [place], [place] [address] [place] [address] Suri Izquierdo M.D. 10/19/2023 Ancillary Procedure Department of Ophthalmology 10/19/2023 2:00 PM CDT Ancillary Procedure Department of Ophthalmology in [place], [place] [address] [place] [address] Suri Izquierdo M.D. Glaucoma Neovascular; Hemorrhage Vitreous Left (HCC) 10/19/2023 10:30 AM CDT Comprehensive Visit Department of Ophthalmology in [place], [place] [address] [place] [address] Suri Izquierdo M.D. Glaucoma Neovascular (Primary Dx); Hemorrhage Vitreous Left (HCC) 10/18/2023 Clinical Communication Department of Ophthalmology in [place], [place] [address] [place] [address] Provider, Unknown 10/16/2023 Clinical Communication Department of Ophthalmology in [place], [place] [address] [place] [phone] Red Gallego M.D. 09/11/2023 Orders Only Department of Ophthalmology in [place], [place] [address] [place] [address] Anabel Lang C.O.A. Ischemia Retina (Primary Dx) 09/11/2023 Clinical Communication Department of Ophthalmology in [place], [place] [address] [place] [address] Rachel Collins M.D., Ph.D. from Last 3 Months Allergies Active Allergy [...] mouth 2 (two) times a day. Active brimonidine (Alphagan) 0.2 % ophthalmic solution [...] a day. 10 mL 12 10/19/2023 Active latanoprost (Xalatan) 0.005 % ophthalmic solution Administer 1 drop into both eyes at bedtime. 5 mL 3 11/02/2023 Active brimonidine (ALPHAGAN) 0.2 % ophthalmic solution Administer 1 drop into both eyes 2 (two) times a day. 10/19/2023 Discontinued (Reorder) latanoprost (XALATAN) 0.005 % ophthalmic solution Administer 1 drop into both eyes at bedtime. 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 I have a [facility] place to live 07/25/2023 Sex [...] Department Care Team (Latest Contact Info) Description 11/09/2023 11:30 AM CDT Ancillary Procedure Department of Ophthalmology in [place], [place] [address] [place] [phone] Suri Izquierdo M.D. [address] [place] [phone] 11/09/2023 12:00 PM CDT Office Visit Department of Ophthalmology in [place], [place] [address] [place] [phone] Suri Izquierdo M.D. [address] [place] [phone] 11/22/2023 9:20 AM CDT Appointment Outpatient Procedure Center in [address] [phone] Suri Izquierdo M.D. [address] [place] [phone] 2023 12:15 PM CDT Clinical Communication Virtual Review in [place], [place] 200 [place] [address] 12/17/2023 2:30 PM CDT Ancillary Procedure Department of Ophthalmology in [place], [place] [address] [place] [phone] Red Gallego M.D. [address] [place] [phone] 12/17/2023 3:00 PM CDT Procedure visit Department of Ophthalmology in [place], [place] [address] [place] [phone] Rachel Collins M.D., Ph.D. [address] [place] [phone] 12/17/2023 3:15 PM CDT Ancillary Procedure Department of Ophthalmology in [place], [place] [address] [place] [phone] Rachel Collins M.D., Ph.D. [address] [place] [phone] 12/17/2023 3:45 PM CDT Comprehensive Visit Department of Ophthalmology in [place], [place] [address] [place] [phone] Rachel Collins M.D., Ph.D. [address] [place] [phone] 12/19/2023 10:00 AM CDT Comprehensive Visit Department of Neurology in [place], [place] [address] [place] [phone] Jojo Barrientos M.D. [address] [place] [phone] 12/21/2023 9:00 AM CDT Ancillary Procedure Department of Ophthalmology in [place], [place] [address] [place] [phone] 12/21/2023 9:30 AM CDT Procedure visit Department of Ophthalmology in [place], [place] [address] [place] [phone] Rachel Collins M.D., Ph.D. [address] [place] [address] Medical Devices Implanted Type Area Client Care Representative Device Identifier Shelf Expiration Date Model / Serial / Lot J J Sig Patella Oval 41 - Briones [id number] Implanted:Qty: 1 on 10/23/2011 Knee Implant Other/Legacy - See Implant Description [employer] Description:Device Manufactu rer - [employer]. Body Location - Other. Left. Device Status Text - [id number] [id number]. Depuy-Insert Stabilized Sz 5 12.5mm - Briones [id number] Implanted:Qty: 1 on 10/23/2011 Knee Implant Other/Legacy - See Implant Description [employer] Description:Device Manufactu rer - [employer]. Body Location - Other. Left. Device Status Text - [id number] [id number]. Depuy-Tib Tray Mod Cement Cocr Sz5 - Briones [id number] Implanted:Qty: 1 on 10/23/2011 Knee Implant Other/Legacy - See Implant Description [employer] Description:Device Manufactu rer - [employer]. Body Location - Other. Left. Device Status Text - KNEE [id number]. Sigma Post Stab.W Lug Fem Sz 6 Lt - Briones [id number] Implanted:Qty: 1 on 10/23/2011 Knee Implant Other/Legacy - See Implant Description [employer] Description:Device Manufactu rer - [employer]. Body Location - Other. Left. Device Status Text - KNEE [id number]. Cement Bone Large - Briones [id number] Implanted:Qty: 2 on 10/23/2011 Misc Other [place] Description:Device Manufactu rer - [employer].. Device Status Text - [id number]. Procedures Procedure Name Priority Date/Time Associated Diagnosis Comments INTRAVITREAL INJECTION, PHARMACOLOGIC AGENT - OS - LEFT EYE Routine 10/23/2023 2:54 PM CDT Glaucoma Neovascular INTRAVITREAL INJECTION, PHARMACOLOGIC AGENT - OS - LEFT EYE Routine 10/23/2023 1:51 PM CDT Glaucoma Neovascular B SCAN - OS - LEFT EYE Routine 3:27 PM CDT Glaucoma Neovascular Hemorrhage Vitreous Left (HCC) OPHTHALMOLOGY IMAGE EXAM Routine 10/19/2023 12:00 AM CDT CREATININE WITH EGFR, S/P Routine 07/30/2023 8:13 AM CDT Loss Visual ELPN WITH CREATININE OLVIN, P Routine 10/26/2011 4:13 AM CDT from Last 3 Months or [...] Left Eye ??[facility]: 28957-271-71 Balanced salt solution irrigation to injected eye [...] and return schedule given if requested. MEHRDAD [id number] Exp 01/06/24 Shelia Moody M.D. [facility] PRO CEDURES * B-Scan Ultrasound - OS - Left Eye (10/19/2023 3:27 PM CDT) Narrative OPHTHALMOLGY NON-IMAGING ORDERS - 10/19/2023 8:17 PM CDT Quality was good. Notes 10/19/2023 B-scan Left Eye: Moderate to dense vitreous opacities layered inferiorly and possible traction near 430PE. Retina appears grossly attached, no mass noted. Suri Izquierdo M.D. [facility] Performing Organization Address [facility] Co de Phone Number OPHTHALMOLGY NON-IMAGING ORDERS * Eyes US-Eye G-Imty-Ociepcgzzqsce Image Exam (10/19/2023 12:00 AM CDT) Narrative IIMS - 10/19/2023 3:24 PM CDT This order has been created and auto-finalized to support the import of images acquired without order. The clinical documentation to support these images can be found on the encounter that produced images. Provider Not In System IMG NON RAD IMAGI NG PROCEDURES Performing Organization Address [facility] Co de Phone Number IIMS NA * Creatinine with Estimated GFR (07/30/2023 8:13 AM CDT) Creatinine 1.15 0.74 - 1.35 mg/dL 07/30/2023 9:14 AM CDT DTL Estimated GFR (eGFR) 66 >=60 mL/min/BSA 07/30/2023 9:14 AM CDT DTL Comment: Estimated GFR calculated using the 2020 CKD_EPI creatinine equation. Blood (Blood, Venous) 07/30/2023 8:13 AM CDT 07/30/2023 8:52 AM CDT Red Gallego M.D. LAB BLOOD ADD-ON [facility] [address] [place] [address], [place] DTL [facility] [address] [place] [address] * (ABNORMAL) Electrolyte Panel with Creatinine Olvin (10/26/2011 4:13 AM CDT) BUN (Blood Urea Nitrogen), S 8 8 - 24 MG/DL [facility] Sodium, P 135 135 - 145 MMOL/L [facility] HX Bicarbonate, P/S 32(H) 22 - 29 MMOL/L [facility] Potassium, P 4.5 3.6 - 5.2 MMOL/L [facility] Chloride, S 98(L) 100 - 108 MMOL/L [facility] Creatinine, Olvin 0.8(L) 0.9 - 1.4 MG/DL [facility] Glucose, S 117 70 - 140 MG/DL [facility] 10/26/2011 4:13 AM CDT 10/26/2011 4:13 AM CDT Allison Redmond P.A.-C., P.A. LAB BLOOD A DD-ON [facility] [address] [place] [address], [facility] from Last 3 Months or Most Recently Relevant to Health Maintenance
--- OUTSIDE RECORDS SUMMARY | 2023-11-08 10:04 | XMS_ITS | Encounter Summary ---
Author Organization [facility] Address [address] [place] [address] Care Team Providers Care Social Media Marketing Manager Name Role Phone Unavailable Primary Care Provider Unavailabl e Encounter Details Date Type Department Care Team (Late st Contact Info) Description 10/23/2023 Orders Only Department of Ophthalmology in [place], [place] [address] [place] [phone] Anabel Lang, C.O.A. [address] [place] [phone] Glaucoma Neovascular (Primary Dx) Social History Tobacco Use Types Packs/Day Years Used Date Smoking Tobacco: Unknown [facility] Utilities Answer Date Recorded In the past 12 months has [facility] electric, gas, oil, or water company threatened [...] your living situation today? I have a [facility] place to live 07/25/2023 Sex and [...] CDT Ancillary Procedure Department of Ophthalmology in [place], [place] [address] [place] [address] Suri Izquierdo M.D. [address] [place] [address] 11/09/2023 12:00 PM CDT Office Visit Department of Ophthalmology in [place], [place] [address] [place] [address] Suri Izquierdo M.D. [address] [place] [phone] 11/22/2023 9:20 AM CDT Appointment Outpatient Procedure Center in [address] [phone] Suri Izquierdo M.D. [address] [place] [address] 2023 12:15 PM CDT Clinical Communication Virtual Review in [place], [place] 200 [place] [address] 12/17/2023 2:30 PM CDT Ancillary Procedure Department of Ophthalmology in [place], [place] [address] [place] [phone] Red Gallego M.D. [address] [place] [phone] 12/17/2023 3:00 PM CDT Procedure visit Department of Ophthalmology in [place], [place] [address] [place] [phone] Rachel Collins M.D., Ph.D. [address] [place] [phone] 12/17/2023 3:15 PM CDT Ancillary Procedure Department of Ophthalmology in [address] [address] Rachel Collins M.D., Ph.D. [address] [place] [phone] 12/17/2023 3:45 PM CDT Comprehensive Visit Department of Ophthalmology in [address] [address] Rachel Collins M.D., Ph.D. [address] [place] [phone] 12/19/2023 10:00 AM CDT Comprehensive Visit Department of Neurology in [address] [address] Jojo Barrientos M.D. [address] [place] [phone] 12/21/2023 9:00 AM CDT Ancillary Procedure Department of Ophthalmology in [address] [address] 12/21/2023 9:30 AM CDT Procedure visit Department of Ophthalmology in [place], [place] [address] [place] [address] Rachel Collins M.D., Ph.D. [address] [place] [address] documented as of this encounter Visit Diagnoses Diagnosis Glaucoma Neovascular- Primary documented in this encounter
--- OUTSIDE RECORDS SUMMARY | 2023-11-08 10:04 | XMS_ITS | Encounter Summary ---
Author Organization [facility] Address [address] [place] [address] Care Team Providers Care Contact Center Team Lead Name Role Phone Unavailable Primary Care Provider Unavailabl e Encounter Details Date Type Department Care Team (Latest Contact Info) Description 10/23/2023 2:54 PM CDT - 10/23/2023 11:59 PM CDT Hospital Encounter Outpatient Procedure Center in [place], [place] [address] [place] [address] Shelia Laughlin M.D. [address] [place] [address] Discharge Disposition: Home or Self Care Social History Tobacco Use Types Packs/Day Years Used Date Smoking Tobacco: Unknown [facility] Utilities Answer Date Recorded In the past 12 months has [facility] electric, gas, oil, or water [employer] threatened to shut off services in your [...] by mouth 2 (two) times a day. traMADoL (ULTRAM) 50 mg tablet Take 50 mg by mouth daily. 07/27/2023 Trelegy Ellipta 100-62.5-25 mcg inhaler 1 puff daily. latanoprost (XALATAN) 0.005 % ophthalmic solution Administer 1 drop into both eyes at bedtime. 07/07/2023 11/02/2023 documented as of this encounter Plan of Treatment Upcoming Encounters Date Type Department Care Team (Latest Contact Info) Description 11/09/2023 11:30 AM CDT Ancillary Procedure Department of Ophthalmology in [address] [address] Suri Izquierdo M.D. [address] [place] [phone] 11/09/2023 12:00 PM CDT Office Visit Department of Ophthalmology in [address] [address] Suri Izquierdo M.D. [address] [place] [phone] 11/22/2023 9:20 AM CDT Appointment Outpatient Procedure Center in [address] [phone] Suri Izquierdo M.D. [address] [place] [phone] 2023 12:15 PM CDT Clinical Communication Virtual Review in [address] [address] 12/17/2023 2:30 PM CDT Ancillary Procedure Department of Ophthalmology in [address] [address] Red Gallego M.D. [address] [place] [phone] 12/17/2023 3:00 PM CDT Procedure visit Department of Ophthalmology in [place], [place] [address] [place] [phone] Rachel Collins M.D., Ph.D. [address] [place] [phone] 12/17/2023 3:15 PM CDT Ancillary Procedure Department of Ophthalmology in [place], [place] [address] [place] [phone] Rachel Collins M.D., Ph.D. [address] [place] [phone] 12/17/2023 3:45 PM CDT Comprehensive Visit Department of Ophthalmology in [address] [address] Rachel Collins M.D., Ph.D. [address] [place] [phone] 12/19/2023 10:00 AM CDT Comprehensive Visit Department of Neurology in [address] [address] Jojo Barrientos M.D. [address] [place] [phone] 12/21/2023 9:00 AM CDT Ancillary Procedure Department of Ophthalmology in [address] [address] 12/21/2023 9:30 AM CDT Procedure visit Department of Ophthalmology in [address] [address] Rachel Collins M.D., Ph.D. [address] [place] [phone] (work) documented as of this encounter Procedures Procedure [...] 25 mg/mL ??Route: intravitreal, Site: Left Eye ??[facility]: 710[address]-487-67 Balanced salt solution irrigation to injected eye [...] and return schedule given if requested. MEHRDAD [id number] Exp 01/06/24 Shelia Moody M.D. [facility] PRO CED[facility] documented in this encounter Visit Diagnoses Not on filedocumented in this encounter
--- OUTSIDE RECORDS SUMMARY | 2023-11-08 10:04 | XMS_ITS | Encounter Summary ---
Author Organization [facility] Address [address] [place] [address] Care Team Providers Care Survey Worker Name Role Phone Unavailable Primary Care Provider Unavailabl e Reason for Referral * Outpatient (Routine) - Authorized Specialty Diagnoses / Procedures Referred By Janeth phillips Referred To Contact Diagnoses Glaucoma Neovascular Procedures Intravitreal Injection, Pharmacologic Agent - OS - Left Eye Suri Izquierdo M.D. [address] [place] [address] [facility] Referral ID Status Reason Start Date Expiration Date V isits Requested Visits Authorized [id number] Authorized 10/19/2023 10/18/2024 5 5 * Outpatient (Routine) - Authorized Specialty Diagnoses / Procedures Referred By Janeth phillips Referred To Contact Ophthalmology Suri Izquierdo M.D. [address] [place] [address] [facility] Referral ID Status Reason Start Date Expiration Date V isits Requested Visits Authorized [id number] Authorized 10/19/2023 04/19/2025 1 1 Scheduling Instructions Left Eye: Avastin Left eye for Other: Neovascular glaucoma within 1 week. Follow-up for 3 more injections of Avastin in the left eye every 4 - weeks. Followup: 4 - 5 weeks after last injection with OCT macula. Injection Location: [facility] Hold injection slot in [place]? Left eye Encounter Details Date Type Department Care Team (Late st Contact Info) Description 10/19/2023 Orders Only Department of Ophthalmology in [place], [place] [address] [place] [address] Juan David Cabrales M.D. [address] [place] [address] Glaucoma Neovascular (Primary Dx); Hemorrhage Vitreous Left (HCC) Social History Tobacco Use Types Packs/Day Years Used Date Smoking Tobacco: Unknown [facility] Utilities Answer Date Recorded In the [...] CDT Ancillary Procedure Department of Ophthalmology in [address] [address] Suri Izquierdo M.D. [address] [place] [phone] 11/09/2023 12:00 PM CDT Office Visit Department of Ophthalmology in [address] [address] Suri Izquierdo M.D. [address] [place] [phone] 11/22/2023 9:20 AM CDT Appointment Outpatient Procedure Center in [address] [phone] Suri Izquierdo M.D. [address] [place] [phone] 2023 12:15 PM CDT Clinical Communication Virtual Review in [address] [address] 12/17/2023 2:30 PM CDT Ancillary Procedure Department of Ophthalmology in [address] [address] Red Gallego M.D. [address] [place] [phone] 12/17/2023 3:00 PM CDT Procedure visit Department of Ophthalmology in [address] [address] Rachel Collins M.D., Ph.D. [address] [place] [phone] 12/17/2023 3:15 PM CDT Ancillary Procedure Department of Ophthalmology in [place], [place] [address] [place] [phone] Rachel Collins M.D., Ph.D. [address] [place] [phone] 12/17/2023 3:45 PM CDT Comprehensive Visit Department of Ophthalmology in [place], [place] [address] [place] [phone] Rachel Collins M.D., Ph.D. [address] [place] [phone] 12/19/2023 10:00 AM CDT Comprehensive Visit Department of Neurology in [address] [address] Jojo Barrientos M.D. [address] [place] [phone] 12/21/2023 9:00 AM CDT Ancillary Procedure Department of Ophthalmology in [address] [address] 12/21/2023 9:30 AM CDT Procedure visit Department of Ophthalmology in [address] [address] Rachel Collins M.D., Ph.D. [address] [place] [phone] Scheduled Orders Name Type Priority Associated Diagnoses [...]
--- OUTSIDE RECORDS SUMMARY | 2023-11-08 10:04 | XMS_ITS | Encounter Summary ---
Author Organization [facility] Address [address] [place] [address] Care Team Providers Care Supervisor Concrete Stone Finishing Name Role Phone Unavailable Primary Care Provider Unavailabl e Encounter Details Date Type Department Care Team (Latest Contact Info) Description 10/19/2023 Clinical Communication Department of Ophthalmology in [place], [place] [address] [place] [address] Suri Izquierdo M.D. [address] [place] [address] Social History Tobacco Use Types Packs/Day Years [...] living situation today? I have a [facility] place to live 07/25/2023 Sex [...] CDT Ancillary Procedure Department of Ophthalmology in [place], [place] [address] [place] [address] Suri Izquierdo M.D. [address] [place] [phone] 11/09/2023 12:00 PM CDT Office Visit Department of Ophthalmology in [place], [place] [address] [place] [address] Suri Izquierdo M.D. [address] [place] [phone] 11/22/2023 9:20 AM CDT Appointment Outpatient Procedure Center in [address] [phone] Suri Izquierdo M.D. [address] [place] [phone] 2023 12:15 PM CDT Clinical Communication Virtual Review in [place], [place] 200 [place] [address] 12/17/2023 2:30 PM CDT Ancillary Procedure Department of Ophthalmology in [place], [place] [address] [place] [phone] Red Gallego M.D. [address] [place] [phone] 12/17/2023 3:00 PM CDT Procedure visit Department of Ophthalmology in [place], [place] [address] [place] [phone] Rachel Collins M.D., Ph.D. [address] [place] [phone] 12/17/2023 3:15 PM CDT Ancillary Procedure Department of Ophthalmology in [place], [place] [address] [place] [phone] Rachel Collins M.D., Ph.D. [address] [place] [phone] 12/17/2023 3:45 PM CDT Comprehensive Visit Department of Ophthalmology in [address] [address] Rachel Collins M.D., Ph.D. [address] [place] [phone] 12/19/2023 10:00 AM CDT Comprehensive Visit Department of Neurology in [address] [address] Jojo Barrientos M.D. [address] [place] [phone] 12/21/2023 9:00 AM CDT Ancillary Procedure Department of Ophthalmology in [place], [place] [address] [place] [address] [place] [address] 12/21/2023 9:30 AM CDT Procedure visit Department of Ophthalmology in [place], [place] [address] [place] [address] Rachel Collins M.D., Ph.D. [address] [place] [address] documented as of this encounter Visit Diagnoses Not on filedocumented in this encounter
--- OUTSIDE RECORDS SUMMARY | 2023-11-08 10:04 | XMS_ITS ---
Author Organization [facility] Address [address] [place] [address] Care Team Providers Care Clinical Documentation Nurse Name Role Phone Unavailable Unavailable Unavailable Surgery Details Not on file Complications Check Surgery Details section. Procedure Estimated Blood Loss Check Surgery Details section. Procedure Findings Check Surgery Details section. Procedure Specimens Taken Check Surgery Details section.
--- OUTSIDE RECORDS SUMMARY | 2023-11-08 10:04 | XMS_ITS | Encounter Summary ---
Author Organization [facility] Address [address] [place] [address] Care Team Providers Care Horticulture Superintendent Name Role Phone Unavailable Primary Care Provider Unavailabl e Encounter Details Date Type Department Care Team (Late st Contact Info) Description 10/23/2023 2:20 PM CDT Ancillary Procedure Department of Ophthalmology in [place], [place] [address] [place] [address] Social History Tobacco Use Types Packs/Day Years [...] your living situation today? I have a [facility] place to live 07/25/2023 Sex [...] CDT Ancillary Procedure Department of Ophthalmology in [place], [place] [address] [place] [phone] uSri Izquierdo M.D. [address] [place] [phone] 11/09/2023 12:00 PM CDT Office Visit Department of Ophthalmology in [place], [place] [address] [place] [phone] Suri Izquierdo M.D. [address] [place] [phone] 11/22/2023 9:20 AM CDT Appointment Outpatient Procedure Center in [address] [phone] Suri Izquierdo M.D. [address] [place] [phone] 2023 12:15 PM CDT Clinical Communication Virtual Review in [place], [place] 200 [place] [address] 12/17/2023 2:30 PM CDT Ancillary Procedure Department of Ophthalmology in [place], [place] [address] [place] [phone] Red Gallego M.D. [address] [place] [phone] 12/17/2023 3:00 PM CDT Procedure visit Department of Ophthalmology in [place], [place] [address] [place] [phone] Rachel Collins M.D., Ph.D. [address] [place] [phone] 12/17/2023 3:15 PM CDT Ancillary Procedure Department of Ophthalmology in [place], [place] [address] [place] [phone] Rachel Collins M.D., Ph.D. [address] [place] [phone] 12/17/2023 3:45 PM CDT Comprehensive Visit Department of Ophthalmology in [address] [address] Rachel Collins M.D., Ph.D. [address] [place] [phone] 12/19/2023 10:00 AM CDT Comprehensive Visit Department of Neurology in [address] [address] Jojo Barrientos M.D. [address] [place] [phone] 12/21/2023 9:00 AM CDT Ancillary Procedure Department of Ophthalmology in [address] [address] 12/21/2023 9:30 AM CDT Procedure visit Department of Ophthalmology in [place], [place] [address] [place] [address] Rachel Collins M.D., Ph.D. [address] [place] [phone] documented as of this encounter Visit Diagnoses Not on filedocumented in this encounter
--- OUTSIDE RECORDS SUMMARY | 2023-11-08 10:04 | XMS_ITS | Clinical Summary ---
Author Organization [facility] Address [address] [place] [address] Care Team Providers Care Automotive Buyer Name Role Phone Unavailable Primary Care Provider Unavailabl e Source Comments Patient records contain information from all sites at [facility]. For routine questions regarding patient records, call [phone] during business hours, M-F 8:00 AM - 5:00 PM Central Time. 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 Hemorrhage Vitreous Left (HCC) (Primary Dx); Ischemia Retina; Occlusion Carotid Artery Left 10/23/2023 2:54 PM CDT - 10/23/2023 11:59 PM CDT Hospital Encounter Outpatient Procedure Center in [place], [place] [address] [place] [address] Shelia Laughlin M.D. Discharge Disposition: Home or Self Care 10/23/2023 2:20 PM CDT Ancillary Procedure Department of Ophthalmology in [place], [place] [address] [place] [address] 10/23/2023 1:51 PM CDT - 10/23/2023 2:53 PM CDT Hospital Encounter Outpatient Procedure Center in [place], [place] [address] [place] [address] Suri Izquierdo M.D. Glaucoma Neovascular Discharge Disposition: Home or Self Care 10/23/2023 12:30 PM CDT Office Visit Department of Ophthalmology in [place], [place] [address] [place] [address] Suri Izquierdo M.D. Occlusion Carotid Artery Left (Primary Dx); Ischemia Retina; Glaucoma Neovascular; Neuropathy Optic Ischemic Bilateral 10/23/2023 Orders Only Department of Ophthalmology in [place], [place] [address] [place] [phone] Anabel Lang C.OAustyn Glaucoma Neovascular (Primary Dx) 10/19/2023 2:00 PM CDT Ancillary Procedure Department of Ophthalmology in [place], [place] [address] [place] [address] Suri Izquierdo M.D. Glaucoma Neovascular; Hemorrhage Vitreous Left (HCC) 10/19/2023 10:30 AM CDT Comprehensive Visit Department of Ophthalmology in [place], [place] [address] [place] [address] Suri Izquierdo M.D. Glaucoma Neovascular (Primary Dx); Hemorrhage Vitreous Left (HCC) 10/19/2023 Orders Only Department of Ophthalmology in [place], [place] [address] [place] [phone] Juan David Cabrales M.D. Glaucoma Neovascular (Primary Dx); Hemorrhage Vitreous Left (HCC) 10/19/2023 Clinical Communication Department of Ophthalmology in [place], [place] [address] [place] [phone] Suri Izquierdo M.D. 10/19/2023 Ancillary Procedure Department of Ophthalmology 10/18/2023 Clinical Communication Department of Ophthalmology in [place], [place] [address] [place] [phone] Provider, Unknown 10/16/2023 Clinical Communication Department of Ophthalmology in [place], [place] [address] [place] [address] Red Gallego M.D. 09/11/2023 Orders Only Department of Ophthalmology in [place], [place] [address] [place] [phone] Anabel Lang C.OKatianaAKatiana Ischemia Retina (Primary Dx) 09/11/2023 Clinical Communication Department of Ophthalmology in [place], [place] [address] [place] [address] Rachel Collins M.D., Ph.D. from Last 3 Months Social History Tobacco Use Types Packs/Day Years Used Date Smoking Tobacco: Unknown [facility] Utilities Answer Date Recorded In [...] your living situation today? I have a [facility] place to live 07/25/2023 Sex [...] CDT Ancillary Procedure Department of Ophthalmology in [place], [place] [address] [place] [phone] Suri Izquierdo M.D. [address] [place] [phone] 11/09/2023 12:00 PM CDT Office Visit Department of Ophthalmology in [place], [place] [address] [place] [phone] Suri Izquierdo M.D. [address] [place] [phone] 11/22/2023 9:20 AM CDT Appointment Outpatient Procedure Center in [address] [phone] Suri Izquierdo M.D. [address] [place] [phone] 2023 12:15 PM CDT Clinical Communication Virtual Review in [place], [place] 200 [place] [address] 12/17/2023 2:30 PM CDT Ancillary Procedure Department of Ophthalmology in [place], [place] [address] [place] [phone] Red Gallego M.D. [address] [place] [phone] 12/17/2023 3:00 PM CDT Procedure visit Department of Ophthalmology in [place], [place] [address] [place] [phone] Rachel Collins M.D., Ph.D. [address] [place] [phone] 12/17/2023 3:15 PM CDT Ancillary Procedure Department of Ophthalmology in [place], [place] [address] [place] [phone] Rachel Collins M.D., Ph.D. [address] [place] [phone] 12/17/2023 3:45 PM CDT Comprehensive Visit Department of Ophthalmology in [place], [place] [address] [place] [phone] Rachel Collins M.D., Ph.D. [address] [place] [phone] 12/19/2023 10:00 AM CDT Comprehensive Visit Department of Neurology in [place], [place] [address] [place] [phone] Jojo Barrientos M.D. [address] [place] [phone] 12/21/2023 9:00 AM CDT Ancillary Procedure Department of Ophthalmology in [place], [place] [address] [place] [phone] 12/21/2023 9:30 AM CDT Procedure visit Department of Ophthalmology in [place], [place] [address] [place] [phone] Rachel Collins M.D., Ph.D. [address] [place] [address] Health Maintenance Due Date Last Done Comments Hepatitis C Screening 1945 Zoster Vaccines (1 of 2) 12/15/1995 DTaP,Tdap,and Td Vaccines (3 - Td or Tdap) 03/16/2018 03/16/2008, 07/04/2006 Depression Screening (Annual PHQ-2) 04/09/2023 COVID-19 Vaccine (2022-2 4 season) 2023 [...] Completed 10/23/2023 Medical Devices Implanted Type Area Senior Bookkeeper Device Identifier Shelf Expiration Date Model / Serial / Lot J J Sig Patella Oval 41 - [id number] [id number] Implanted:Qty: 1 on 10/23/2011 Knee Implant Other/Legacy - See Implant Description [employer] Description:Device Manufactu rer - [employer]. Body Location - Other. Left. Device Status Text - [id number] [id number]. Depuy-Insert Stabilized Sz 5 12.5mm - Briones [id number] Implanted:Qty: 1 on 10/23/2011 Knee Implant Other/Legacy - See Implant Description [employer] Description:Device Manufactu rer - [employer]. Body Location - Other. Left. Device Status Text - [id number] [id number]. Depuy-Tib Tray Mod Cement Cocr Sz5 - Briones [id number] Implanted:Qty: 1 on 10/23/2011 Knee Implant Other/Legacy - See Implant Description [employer] Description:Device Manufactu rer - [employer]. Body Location - Other. Left. Device Status Text - [id number] [id number]. Sigma Post Stab.W Lug Fem Sz 6 Lt - Briones [id number] Implanted:Qty: 1 on 10/23/2011 Knee Implant Other/Legacy - See Implant Description [employer] Description:Device Manufactu rer - [employer]. Body Location - Other. Left. Device Status Text - KNEE [id number]. Cement Bone Large - Briones [id number] Implanted:Qty: 2 on 10/23/2011 Misc Other [employer] Description:Device Manufactu rer - Beverly Amarilis.. Device Status Text - [id number]. Procedures Procedure Name Priority Date/Time Associated Diagnosis Comments INTRAVITREAL INJECTION, PHARMACOLOGIC AGENT - OS - LEFT EYE Routine 10/23/2023 2:54 PM CDT Glaucoma Neovascular INTRAVITREAL INJECTION, PHARMACOLOGIC AGENT - OS - LEFT EYE Routine 10/23/2023 1:51 PM CDT Glaucoma Neovascular B SCAN - OS - LEFT EYE Routine 4 3:27 PM CDT Glaucoma Neovascular Hemorrhage Vitreous Left (HCC) OPHTHALMOLOGY IMAGE EXAM Routine 10/19/2023 12:00 AM CDT CREATININE WITH EGFR, S/P Routine 07/30/2023 8:13 AM CDT Loss Visual ELPN WITH CREATININE DIMPLE, P Routine 10/26/2011 4:13 AM CDT from [...] 25 mg/mL ??Route: intravitreal, Site: Left Eye ??[facility]: 27263-519-93 Balanced salt solution irrigation to injected eye [...] and return schedule given if requested. MEHRDAD [id number] Exp 01/06/24 Shelia Moody M.D. [facility] CLINIC PRO CEDURES * B-Scan Ultrasound - OS - Left Eye (10/19/2023 3:27 PM CDT) Narrative OPHTHALMOLGY NON-IMAGING ORDERS - 10/19/2023 8:17 PM CDT Quality was good. Notes 10/19/2023 B-scan Left Eye: Moderate to dense vitreous opacities layered inferiorly and possible traction near 430PE. Retina appears grossly attached, no mass noted. Suri Izquierdo M.D. OPH ULTRAS ND OPHTHALMOLGY NON-IMAGING ORDERS * Eyes US-Eye F-Iouh-Litckdxhuhyow Image Exam (10/19/2023 12:00 AM CDT) Narrative IIMS - 10/19/2023 3:24 PM CDT This order has been created and auto-finalized to support the import of images acquired without order. The clinical documentation to support these images can be found on the encounter that produced images. Provider Not In System IMG NON RAD IMAGI NG PROCEDURES [facility] NA * Creatinine with Estimated GFR (07/30/2023 8:13 AM CDT) Creatinine 1.15 0.74 - 1.35 mg/dL 07/30/2023 9:14 AM CDT DTL Estimated GFR (eGFR) 66 >=60 mL/min/BSA 07/30/2023 9:14 AM CDT DTL Comment: Estimated GFR calculated using the 2020 CKD_EPI creatinine equation. Blood (Blood, Venous) 07/30/2023 8:13 AM CDT 07/30/2023 8:52 AM CDT Red Gallego M.D. LAB BLOOD ADD-ON [facility] [address] [place] [address], [facility] DTL [facility] [address] [place] [address] * (ABNORMAL) Electrolyte Panel with Creatinine Dimple (10/26/2011 4:13 AM CDT) BUN (Blood Urea Nitrogen), S 8 8 - 24 MG/DL [facility] Sodium, P 135 135 - 145 MMOL/L [facility] HX Bicarbonate, P/S 32(H) 22 - 29 MMOL/L [facility] Potassium, P 4.5 3.6 - 5.2 MMOL/L [facility] Chloride, S 98(L) 100 - 108 MMOL/L [facility] Creatinine, Dimple 0.8(L) 0.9 - 1.4 MG/DL [facility] Glucose, S 117 70 - 140 MG/DL [facility] 10/26/2011 4:13 AM CDT 10/26/2011 4:13 AM CDT Allison Redmond P.A.-C., P.A. LAB BLOOD A DD-ON [facility] [address] [place] [address], [facility] from Last 3 Months or Most Recently Relevant to Health Maintenance
--- OUTSIDE RECORDS SUMMARY | 2023-11-08 10:04 | XMS_ITS | Encounter Summary ---
Author Organization [facility] Address [address] [place] [address] Care Team Providers Care Steam Blocker Name Role Phone Unavailable Primary Care Provider Unavailabl e Reason for Referral * Outpatient (Routine) - Authorized Specialty Diagnoses / Procedures Referred By Janeth phillips Referred To Contact Diagnoses Glaucoma Neovascular Procedures Intravitreal Injection, Pharmacologic Agent - OS - Left Eye Suri Izquierdo M.D. [address] [place] [address] [facility] Region Referral ID Status Reason Start Date Expiration Date V isits Requested Visits Authorized [id number] Authorized 10/19/2023 10/18/2024 5 5 Reason for Visit * Outpatient (Routine) - Authorized Specialty Diagnoses / Procedures Referred By Janeth phillips Referred To Contact Diagnoses Glaucoma Neovascular Procedures Intravitreal Injection, Pharmacologic Agent - OS - Left Eye Suri Izquierdo M.D. [address] [place] [address] [facility] Region Referral ID Status Reason Start Date Expiration Date V isits Requested Visits Authorized [id number] Authorized 10/19/2023 10/18/2024 5 5 Encounter Details Date Type Department Care Team (Latest Contact Info) Description 10/23/2023 1:51 PM CDT - 10/23/2023 2:53 PM CDT Hospital Encounter Outpatient Procedure Center in [place], [place] [address] [place] [phone] Suri Izquierdo M.D. [address] [place] [address] Glaucoma Neovascular Discharge Disposition: Home or Self [...] CDT Ancillary Procedure Department of Ophthalmology in [place], [place] [address] [place] [phone] Suri Izquierdo M.D. [address] [place] [phone] 11/09/2023 12:00 PM CDT Office Visit Department of Ophthalmology in [place], [place] [address] [place] [phone] Suri Izquierdo M.D. [address] [place] [phone] 11/22/2023 9:20 AM CDT Appointment Outpatient Procedure Center in [address] [phone] Suri Izquierdo M.D. [address] [place] [phone] 2023 12:15 PM CDT Clinical Communication Virtual Review in [place], [place] 200 [place] [address] 12/17/2023 2:30 PM CDT Ancillary Procedure Department of Ophthalmology in [address] [address] Red Gallego M.D. [address] [place] [phone] 12/17/2023 3:00 PM CDT Procedure visit Department of Ophthalmology in [address] [address] Rachel Collins M.D., Ph.D. [address] [place] [phone] 12/17/2023 3:15 PM CDT Ancillary Procedure Department of Ophthalmology in [address] [address] Rachel Collins M.D., Ph.D. [address] [place] [phone] 12/17/2023 3:45 PM CDT Comprehensive Visit Department of Ophthalmology in [address] [address] Rachel Collins M.D., Ph.D. [address] [place] [phone] 12/19/2023 10:00 AM CDT Comprehensive Visit Department of Neurology in [place], [place] [address] [place] [phone] Jojo Barrientos M.D. [address] [place] [phone] 12/21/2023 9:00 AM CDT Ancillary Procedure Department of Ophthalmology in [place], [place] [address] [place] [phone] 12/21/2023 9:30 AM CDT Procedure visit Department of Ophthalmology in [place], [place] [address] [place] [phone] Rachel Collins M.D., Ph.D. [address] [place] [phone] documented as of this encounter Procedures Procedure [...] 25 mg/mL ??Route: intravitreal, Site: Left Eye ??[facility]: 95[address]-396-41 Balanced salt solution irrigation to injected eye [...] and return schedule given if requested. MEHRDAD [id number] Exp 01/06/24 Shelia Moody M.D. OPHTH CLINIC PRO CEDURES documented in this encounter [...]
--- OUTSIDE RECORDS SUMMARY | 2023-11-08 10:04 | XMS_ITS | Encounter Summary ---
Author Organization [facility] Address [address] [place] [address] Care Team Providers Care Dean Of Graduate Studies Name Role Phone Unavailable Primary Care Provider Unavailabl e Encounter Details Date Type Department Care Team (Late st Contact Info) Description 10/19/2023 Ancillary Procedure Department of Ophthalmology Social History Tobacco Use Types Packs/Day Years Used Date Smoking Tobacco: Unknown [facility] Utilities Answer Date Recorded In the past 12 months has th e electric, gas, oil, or water [employer] threatened to shut off services in your [...] your living situation today? I have a [facility] place to live 07/25/2023 Sex [...] CDT Ancillary Procedure Department of Ophthalmology in [address] [place] [phone] Suri Izquierdo M.D. [address] [place] [phone] 11/09/2023 12:00 PM CDT Office Visit Department of Ophthalmology in [address] [place] [phone] Suri Izquierdo M.D. [address] [place] [phone] 11/22/2023 9:20 AM CDT Appointment Outpatient Procedure Center in [address] [phone] Suri Izquierdo M.D. [address] [place] [phone] 2023 12:15 PM CDT Clinical Communication Virtual Review in [address] [place] [address] 12/17/2023 2:30 PM CDT Ancillary Procedure Department of Ophthalmology in [address] [place] [phone] Red Gallego M.D. [address] [place] [phone] 12/17/2023 3:00 PM CDT Procedure visit Department of Ophthalmology in [address] [place] [phone] Rachel Collins M.D., Ph.D. [address] [place] [phone] 12/17/2023 3:15 PM CDT Ancillary Procedure Department of Ophthalmology in [address] [place] [phone] Rachel Collins M.D., Ph.D. [address] [place] [phone] 12/17/2023 3:45 PM CDT Comprehensive Visit Department of Ophthalmology in [address] [phone] Rachel Collins M.D., Ph.D. [address] [place] [phone] 12/19/2023 10:00 AM CDT Comprehensive Visit Department of Neurology in [address] [phone] Jojo Barrientos M.Guillermina. [address] [place] [phone] 12/21/2023 9:00 AM CDT Ancillary Procedure Department of Ophthalmology in [address] [place] [phone] 12/21/2023 9:30 AM CDT Procedure visit Department of Ophthalmology in [address] [phone] Rachel Collins M.D., Ph.D. [address] [place] [address] documented as of this encounter Procedures Procedure Name Priority Date/Time Associated Diagnosis Comments OPHTHALMOLOGY IMAGE EXAM Routine 10/19/2023 12:00 AM CDT documented in this encounter Results * Eyes US-Eye K-Tfbx-Qhctzlceecijd Image Exam (10/19/2023 12:00 AM CDT) Narrative [...]
--- OUTSIDE RECORDS SUMMARY | 2023-11-08 10:04 | XMS_ITS | Encounter Summary ---
Author Organization [facility] Address [address] [place] [address] Care Team Providers Care Hydrotel Operator Name Role Phone Unavailable Primary Care Provider Unavailabl e Reason for Referral * Outpatient (Routine) - Authorized Specialty Diagnoses / Procedures Referred By Janeth t Referred To Contact Vascular Medicine Diagnoses Ischemia Retina Occlusion Carotid Artery Left Suri Izquierdo M.D. [address] [place] [phone] [employer] Referral ID Status Reason Start Date Expiration Date V isits Requested Visits Authorized [id number] Authorized 11/03/2023 05/04/2025 1 1 * Outpatient (Routine) - Authorized Specialty Diagnoses / Procedures Referred By Janeth phillips Referred To Contact Ophthalmology Suri zIquierdo M.D. 200 [place] [address] [employer] Referral ID Status Reason Start Date Expiration Date V isits Requested Visits Authorized [id number] Authorized 11/02/2023 05/03/2025 1 1 Reason for Visit * Reason Comments Occlusion Carotid Artery Lef * Outpatient (Routine) - Closed Specialty Diagnoses / Procedures Referred By Janeth phillips Referred To Contact Ophthalmology Suri Izquierdo M.D. 200 [place] [address] [employer] Referral ID Status Reason Start Date Expiration Date Visits Re quested Visits Authorized [id number] Closed 10/23/2023 04/23/2025 1 1 Encounter Details Date Type Department Care Team (Latest Contact Info) Description 11/02/2023 12:45 PM CDT Office Visit Department of Ophthalmology in [place], [place] [address] [place] [address] Suri Izquierdo M.D. [address] [place] [address] Hemorrhage Vitreous Left (HCC) (Primary Dx); Ischemia Retina; Occlusion Carotid Artery Left Social History Tobacco [...] Progress Notes * Suri Izquierdo M.D. - 11/02/2023 12:45 PM CDT CC: This is a follow up visit for Andrew Shields for neovascular glaucoma, left eye. SUBJECTIVE: His left eye is comfortable, he is not having any pain and pressure sensation is gone. Continues tostruggle with depth perception. His right eye remains asymptomatic. He reports no changes in vision. Current drops: Latanoprost once daily, both eyes Brimonidine TID, left eye Dorzolamide BID, left eye Atropine BID, left eye POH - Cataract surgery BOTH EYES ASSESSMENT: # Neovascular glaucoma, left eye # Likely vitreous hemorrhage, left eye # Ocular ischemic syndrome, left eye # Left ICA occlusion IMPRESSION: Status post Avastin injection #1 on 10/23/23, right eye. There is still significant hyphema and vitreous hemorrhage on exam, though the hyphema has slightly reduced in size compared to his last visit.On gonioscopy, the angle appeared closed superiorly with only Schwalbe's line visible, and there was blood in the angle inferiorly, nasally, and temporally. His IOP is well- controlled on the current drop regimen, and the left eye is comfortable. We will plan to continue intravitreal anti-VEGF injections every 4 weeks for 4 injections total, kym followed with OCT macula after last injection. Will [...] with patient and family and they expressed understanding.He is scheduled with neurology here at [facility] in December. The patient plans to schedule an appointment with his vascular physician in the [facility], and I have placed a referral for vascular surgery/medicine here as well to help determine if he would be a candidate for carotid endarterectomy. PLAN: - Continue Avastin injection q4 weeks x4, plan outlined in Retinal Injection Plan below - Continue latanoprost both eyes daily - Continue brimonidine TID, dorzolamide BID, and atropine BID, left eye - Continue monocular precautions - Referral to vascular surgery - Patient scheduled with neurology in December - Will plan for panretinal photocoagulation in the left eye once there is a view to the posterior segment - RTC in 1 week for follow-up, return precautions discussed Retinal Injection Plan 10/23/2023 Left Eye: Avastin Left eye for Other: neovascular glaucoma 10/23/23 . Follow-up for 3 more injections of Avastin in the left eye every 4 weeks. Followup: 4 - 5 weeks after last injection with OCT macula. Injection Location: [facility] Hold injection slot in [place]? Left eye Staffed with Dr. Herrera on 10/19/23 Patient discussed and seen with Dr. Calderon today. Suri Izquierdo M.D. PGY-2 Ophthalmology Resident documented in this encounter Plan of Treatment Upcoming Encounters Date Type Department Care Team (Latest Contact Info) Description 11/09/2023 11:30 AM CDT Ancillary Procedure Department of Ophthalmology in [place], [place] [address] [place] [address] Suri Izquierdo M.D. [address] [place] [address] 11/09/2023 12:00 PM CDT Office Visit Department of Ophthalmology in [place], [place] [address] [place] [address] Suri Izquierdo M.D. [address] [place] [address] 11/22/2023 9:20 AM CDT Appointment Outpatient Procedure Center in [address] [phone] Suri Izquierdo M.D. [address] [place] [phone] 2023 12:15 PM CDT Clinical Communication Virtual Review in [place], [place] 200 [place] [address] 12/17/2023 2:30 PM CDT Ancillary Procedure Department of Ophthalmology in [address] [address] Red Gallego M.D. [address] [place] [phone] 12/17/2023 3:00 PM CDT Procedure visit Department of Ophthalmology in [address] [address] Rachel Collins M.D., Ph.D. [address] [place] [phone] 12/17/2023 3:15 PM CDT Ancillary Procedure Department of Ophthalmology in [address] [address] Rachel Collins M.D., Ph.D. [address] [place] [phone] 12/17/2023 3:45 PM CDT Comprehensive Visit Department of Ophthalmology in [address] [address] Rachel Collins M.D., Ph.D. [address] [place] [phone] 12/19/2023 10:00 AM CDT Comprehensive Visit Department of Neurology in [place], [place] [address] [place] [phone] Jojo Barrientos M.D. [address] [place] [phone] 12/21/2023 9:00 AM CDT Ancillary Procedure Department of Ophthalmology in [place], [place] [address] [place] [phone] 12/21/2023 9:30 AM CDT Procedure visit Department of Ophthalmology in [place], [place] [address] [place] [phone] Rachel Collins M.D., Ph.D. [address] [place] [phone] Scheduled Referrals Name Type Priority Associated Diagnoses Order Schedule Ophthalmology office visit (clinic) Outpatient Referral Routine Expected: 11/09/2023, Expires: 02/01/2025 Vascular Medicine - Carotid consult (clinic) Outpatient Referral Routine Ischemia Retina Occlusion Carotid Artery Left Expected: 11/03/2023, Expires: 02/02/2025 documented as of this encounter Visit Diagnoses Diagnosis Hemorrhage Vitreous Left (HCC)- Primary Ischemia Retina Occlusion Carotid Artery Left documented in this encounter
--- OUTSIDE RECORDS SUMMARY | 2023-11-08 10:04 | XMS_ITS | Encounter Summary ---
Author Organization [facility] Address [address] [place] [address] Care Team Providers Care Dust Collector Ore Crushing Name Role Phone Unavailable Primary Care Provider Unavailabl e Reason for Referral * Outpatient (Routine) - Authorized Specialty Diagnoses / Procedures Referred By Janeth phillips Referred To Contact Neurology Diagnoses Occlusion Carotid Artery Left Ischemia Retina Glaucoma Neovascular Neuropathy Optic Ischemic Bilateral Suri Izquierdo M.D. 200 [place] [address] [facility] Referral ID Status Reason Start Date Expiration Date V isits Requested Visits Authorized [id number] Authorized 10/23/2023 04/23/2025 1 1 * Outpatient (Routine) - Closed Specialty Diagnoses / Procedures Referred By Janeth phillips Referred To Contact Ophthalmology Suri Izquierdo M.D. 200 [place] [address] [facility] Referral ID Status Reason Start Date Expiration Date Visits Re quested Visits Authorized [id number] Closed 10/23/2023 04/23/2025 1 1 Scheduling Instructions VTD Reason for Visit * Outpatient (Routine) - Closed Specialty Diagnoses / Procedures Referred By Janeth phillips Referred To Contact Ophthalmology Suri Izquierdo M.D. 200 [place] [address] [facility] Referral ID Status Reason Start Date Expiration Date Visits Re quested Visits Authorized [id number] Closed 10/19/2023 04/19/2025 1 1 Encounter Details Date Type Department Care Team (Latest Contact Info) Description 10/23/2023 12:30 PM CDT Office Visit Department of Ophthalmology in [place], [place] [address] [place] [address] Suri Izquierdo M.D. [address] [place] [address] Occlusion Carotid Artery Left (Primary Dx); Ischemia [...] had to drive to pharmacy in the [facility] to fill the prescription. He is otherwise using all his eye drops as instructed. After discussing with his children, he decided that he would prefer to establish care with a vascular specialist and or stroke specialist here at [facility], so he did not reach out to [...] place a referral tostroke neurology here at [place]. PLAN: - Avastin injection this afternoon in [...] last injection with OCT macula. Injection Location: [place] Hold injection slot in [place]? Left eye Staffed with Dr. Herrera on 10/19/23 Patient discussed and seen with Dr. Sanchez today. Suri Izquierdo M.D. PGY-2 Ophthalmology Resident documented in this encounter Plan of Treatment Upcoming Encounters Date Type Department Care Team (Latest Contact Info) Description 11/09/2023 11:30 AM CDT Ancillary Procedure Department of Ophthalmology in [place], [place] [address] [place] [address] Suri Izquierdo M.D. [address] [place] [address] 11/09/2023 12:00 PM CDT Office Visit Department of Ophthalmology in [place], [place] [address] [place] [address] Suri Izquierdo M.D. [address] [place] [address] 11/22/2023 9:20 AM CDT Appointment Outpatient Procedure Center in [address] [phone] Suri Izquierdo M.D. [address] [place] [phone] 2023 12:15 PM CDT Clinical Communication Virtual Review in [place], [place] 200 [place] [address] 12/17/2023 2:30 PM CDT Ancillary Procedure Department of Ophthalmology in [address] [address] Red Gallego M.D. [address] [place] [phone] 12/17/2023 3:00 PM CDT Procedure visit Department of Ophthalmology in [address] [address] Rachel Collins M.D., Ph.D. [address] [place] [phone] 12/17/2023 3:15 PM CDT Ancillary Procedure Department of Ophthalmology in [address] [address] Rachel Collins M.D., Ph.D. [address] [place] [phone] 12/17/2023 3:45 PM CDT Comprehensive Visit Department of Ophthalmology in [address] [address] Rachel Collins M.D., Ph.D. [address] [place] [phone] 12/19/2023 10:00 AM CDT Comprehensive Visit Department of Neurology in [address] [address] Jojo Barrientos M.D. [address] [place] [address] 12/21/2023 9:00 AM CDT Ancillary Procedure Department of Ophthalmology in [place], [place] [address] [place] [address] 12/21/2023 9:30 AM CDT Procedure visit Department of Ophthalmology in [place], [place] 200 [place] [address] Rachel Collins M.D., Ph.D. [address] [place] [phone] Scheduled Referrals Name Type Priority Associated Diagnoses [...]
--- OUTSIDE RECORDS SUMMARY | 2023-11-08 10:05 | XMS_ITS | Encounter Summary ---
Author Organization [facility] Address [address] [place] [address] Care Team Providers Care Metal Painter Name Role Phone Unavailable Primary Care Provider Unavailabl e Encounter Details Date Type Department Care Team (Latest Contact Info) Description 10/16/2023 Clinical Communication Department of Ophthalmology in [place] [address] [place] [phone] Red Gallego M.D. [address] [place] [address] Social History Tobacco Use Types Packs/Day Years [...] CDT Ancillary Procedure Department of Ophthalmology in [place], [place] [address] [place] [address] Suri Izquierdo M.D. [address] [place] [phone] 11/09/2023 12:00 PM CDT Office Visit Department of Ophthalmology in [place], [place] [address] [place] [address] Suri Izquierdo M.D. [address] [place] [phone] 11/22/2023 9:20 AM CDT Appointment Outpatient Procedure Center in [address] [address] Suri Izquierdo M.D. [address] [place] [phone] 2023 12:15 PM CDT Clinical Communication Virtual Review in [place], [place] 200 [place] [address] 12/17/2023 2:30 PM CDT Ancillary Procedure Department of Ophthalmology in [address] [address] Red Gallego M.D. [address] [place] [phone] 12/17/2023 3:00 PM CDT Procedure visit Department of Ophthalmology in [address] [address] Rachel Collins M.D., Ph.D. [address] [place] [phone] 12/17/2023 3:15 PM CDT Ancillary Procedure Department of Ophthalmology in [address] [address] Rachel Collins M.D., Ph.D. [address] [place] [phone] 12/17/2023 3:45 PM CDT Comprehensive Visit Department of Ophthalmology in [address] [address] Rachel Collins M.D., Ph.D. [address] [place] [phone] 12/19/2023 10:00 AM CDT Comprehensive Visit Department of Neurology in [address] [address] Jojo Barrientos M.D. [address] [place] [phone] 12/21/2023 9:00 AM CDT Ancillary Procedure Department of Ophthalmology in [place], [place] [address] [place] [address] 12/21/2023 9:30 AM CDT Procedure visit Department of Ophthalmology in [place], [place] [address] [place] [address] Rachel Collins M.D., Ph.D. [address] [place] [address] documented as of this encounter Visit Diagnoses Not on filedocumented in this encounter
--- OUTSIDE RECORDS SUMMARY | 2023-11-08 10:05 | XMS_ITS | Encounter Summary ---
Author Organization [facility] Address [address] [place] [address] Care Team Providers Care Bricklayer Helper Name Role Phone Unavailable Primary Care Provider Unavailabl e Reason for Visit * Reason Onset Date Comments Appt Request 07/25/2023 Encounter Details Date Type Department Care Team (Latest Contact Info) Description 07/25/2023 Clinical Communication Department of Ophthalmology in [place], [place] [address] [place] [phone] Red Gallego M.D. [address] [place] [address] Appt Request Social History Tobacco Use Types Packs/Day Years Used Date Smoking Tobacco: Unknown [facility] Utilities Answer Date Recorded In the [...] your living situation today? I have a [facility] place to live 07/25/2023 Sex [...] CDT Ancillary Procedure Department of Ophthalmology in [place], [place] [address] [place] [address] Suri Izquierdo M.D. [address] [place] [address] 11/09/2023 12:00 PM CDT Office Visit Department of Ophthalmology in [place], [place] [address] [place] [address] Suri Izquierdo M.D. [address] [place] [address] 11/22/2023 9:20 AM CDT Appointment Outpatient Procedure Center in [address] [address] Suri Izquierdo M.D. [address] [place] [address] 2023 12:15 PM CDT Clinical Communication Virtual Review in [place], [place] 200 [place] [address] 12/17/2023 2:30 PM CDT Ancillary Procedure Department of Ophthalmology in [place], [place] [address] [place] [phone] Red Gallego M.D. [address] [place] [phone] 12/17/2023 3:00 PM CDT Procedure visit Department of Ophthalmology in [place], [place] [address] [place] [phone] Rachel Collins M.D., Ph.D. [address] [place] [phone] 12/17/2023 3:15 PM CDT Ancillary Procedure Department of Ophthalmology in [address] [address] Rachel Collins M.D., Ph.D. [address] [place] [phone] 12/17/2023 3:45 PM CDT Comprehensive Visit Department of Ophthalmology in [address] [address] Rachel Collins M.D., Ph.D. [address] [place] [phone] 12/19/2023 10:00 AM CDT Comprehensive Visit Department of Neurology in [address] [address] Jojo Barrientos M.D. [address] [place] [phone] 12/21/2023 9:00 AM CDT Ancillary Procedure Department of Ophthalmology in [place], [place] [address] [place] [address] 12/21/2023 9:30 AM CDT Procedure visit Department of Ophthalmology in [place], [place] [address] [place] [address] Rachel Collins M.D., Ph.D. [address] [place] [phone] documented as of this encounter Visit Diagnoses Not on filedocumented in this encounter
--- OUTSIDE RECORDS SUMMARY | 2023-11-08 10:05 | XMS_ITS | Encounter Summary ---
Author Organization [facility] Address [address] [place] [address] Care Team Providers Care Director Oracle Database Name Role Phone Unavailable Primary Care Provider Unavailabl e Encounter Details Date Type Department Care Team (Latest Contact Info) Description 10/18/2023 Clinical Communication Department of Ophthalmology in [place], [place] [address] [place] [address] Provider, Unknown Social History Tobacco Use Types [...] your living situation today? I have a [facility] place to live 07/25/2023 Sex and [...] CDT Ancillary Procedure Department of Ophthalmology in [place], [place] [address] [place] [phone] Suri Izquierdo M.D. [address] [place] [phone] 11/09/2023 12:00 PM CDT Office Visit Department of Ophthalmology in [place], [place] [address] [place] [phone] Suri Izquierdo M.D. [address] [place] [phone] 11/22/2023 9:20 AM CDT Appointment Outpatient Procedure Center in [address] [address] Suri Izquierdo M.D. [address] [place] [phone] 2023 12:15 PM CDT Clinical Communication Virtual Review in [place], [place] 200 [place] [address] 12/17/2023 2:30 PM CDT Ancillary Procedure Department of Ophthalmology in [place], [place] [address] [place] [phone] Red Gallego M.D. [address] [place] [phone] 12/17/2023 3:00 PM CDT Procedure visit Department of Ophthalmology in [place], [place] [address] [place] [phone] Rachel Collins M.D., Ph.D. [address] [place] [phone] 12/17/2023 3:15 PM CDT Ancillary Procedure Department of Ophthalmology in [place], [place] [address] [place] [phone] Rachel Collins M.D., Ph.D. [address] [place] [phone] 12/17/2023 3:45 PM CDT Comprehensive Visit Department of Ophthalmology in [place], [place] [address] [place] [phone] Rachel Collins M.D., Ph.D. [address] [place] [phone] 12/19/2023 10:00 AM CDT Comprehensive Visit Department of Neurology in [place], [place] [address] [place] [phone] Jojo Barrientos M.D. [address] [place] [phone] 12/21/2023 9:00 AM CDT Ancillary Procedure Department of Ophthalmology in [place], [place] [address] [place] [phone] 12/21/2023 9:30 AM CDT Procedure visit Department of Ophthalmology in [place], [place] [address] [place] [phone] Rachel Collins M.D., Ph.D. [address] [place] [phone] documented as of this encounter Visit Diagnoses Not on filedocumented in this encounter
--- OUTSIDE RECORDS SUMMARY | 2023-11-08 10:05 | XMS_ITS | Encounter Summary ---
Author Organization [facility] Address [address] [place] [address] Care Team Providers Care Laundry Routeman Name Role Phone Unavailable Primary Care Provider Unavailabl e Encounter Details Date Type Department Care Team (Late st Contact Info) Description 07/03/2023 Orders Only Department of Ophthalmology in [place], [place] [address] [place] [phone] Red Gallego M.D. [address] [place] [address] Social History Tobacco Use Types Packs/Day Years Used Date Smoking Tobacco: Unknown [facility] Utilities Answer Date Recorded In the [...] living situation today? I have a [facility] place to live 07/25/2023 Sex [...] CDT Ancillary Procedure Department of Ophthalmology in [place], [place] [address] [place] [address] Suri Izquierdo M.D. [address] [place] [address] 11/09/2023 12:00 PM CDT Office Visit Department of Ophthalmology in [place], [place] [address] [place] [address] Suri Izquierdo M.D. [address] [place] [phone] 11/22/2023 9:20 AM CDT Appointment Outpatient Procedure Center in [address] [phone] Suri Izquierdo M.D. [address] [place] [address] 2023 12:15 PM CDT Clinical Communication Virtual Review in [place], [place] 200 [place] [address] 12/17/2023 2:30 PM CDT Ancillary Procedure Department of Ophthalmology in [place], [place] [address] [place] [phone] Red Gallego M.D. [address] [place] [phone] 12/17/2023 3:00 PM CDT Procedure visit Department of Ophthalmology in [place], [place] [address] [place] [phone] Rachel Collins M.D., Ph.D. [address] [place] [phone] 12/17/2023 3:15 PM CDT Ancillary Procedure Department of Ophthalmology in [place], [place] [address] [place] [phone] Rachel Collins M.D., Ph.D. [address] [place] [phone] 12/17/2023 3:45 PM CDT Comprehensive Visit Department of Ophthalmology in [address] [address] Rachel Collins M.D., Ph.D. [address] [place] [phone] 12/19/2023 10:00 AM CDT Comprehensive Visit Department of Neurology in [address] [address] Jojo Barrientos M.D. [address] [place] [phone] 12/21/2023 9:00 AM CDT Ancillary Procedure Department of Ophthalmology in [address] [place] [address] 12/21/2023 9:30 AM CDT Procedure visit Department of Ophthalmology in [place], [place] [address] [place] [address] Rachel Collins M.D., Ph.D. [address] [place] [address] documented as of this encounter Visit Diagnoses Not on filedocumented in this encounter
--- OUTSIDE RECORDS SUMMARY | 2023-11-08 10:05 | XMS_ITS | Encounter Summary ---
Author Organization [facility] Address [address] [place] [address] Care Team Providers Care Contracts Advisor Name Role Phone Unavailable Primary Care Provider Unavailabl e Reason for Referral * Outpatient (Routine) - Authorized Specialty Diagnoses / Procedures Referred By Janeth phillips Referred To Contact Ophthalmology Diagnoses Ischemia Retina Glaucoma Neovascular Jerica Gallego M.D. [address] [place] [address] [facility] Referral ID Status Reason Start Date Expiration Date V isits Requested Visits Authorized [id number] Authorized 07/30/2023 01/28/2025 1 1 Scheduling Instructions Please try to schedule within 1-2 weeks Reason for Visit * Reason Comments Decreased Visual Acuity * Appointment Request (Routine) - Closed Specialty Diagnoses / Procedures Referred By Janeth phillips Referred To Contact Ophthalmology Diagnoses Neuropathy Optic Ischemic Graciela Giron O.D. 2019 [address], [facility] [place] [address] Referral ID Status Reason Start Date Expiration Date Visits Re quested Visits Authorized [id number] Closed 04/27/2023 04/26/2024 1 1 Encounter Details Date Type Department Care Team (Latest Contact Info) Description 07/30/2023 3:15 PM CDT Comprehensive Visit Department of Ophthalmology in [place], [place] [address] [place] [phone] Jerica Gallego M.D. [address] [place] [address] Ischemia Retina (Primary Dx); Arteritis Temporal (HCC); Glaucoma Neovascular; Intraocular Lens Implant Status Post; Occlusion Carotid Artery Left Social History Tobacco Use Types Packs/Day Years Used Date Smoking Tobacco: Unknown [facility] Utilities Answer Date Recorded In the [...] your living situation today? I have a [facility] place to live 07/25/2023 Sex [...] the patient/ to reschedule [place] with [facility] [place] [...] CDT Ancillary Procedure Department of Ophthalmology in [place], [place] [address] [place] [address] Suri Izquierdo M.D. [address] [place] [address] 11/09/2023 12:00 PM CDT Office Visit Department of Ophthalmology in [place], [place] [address] [place] [address] Suri Izquierdo M.D. [address] [place] [address] 11/22/2023 9:20 AM CDT Appointment Outpatient Procedure Center in [address] [address] Suri Izquierdo M.D. [address] [place] [phone] 2023 12:15 PM CDT Clinical Communication Virtual Review in [place], [place] 200 [place] [address] 12/17/2023 2:30 PM CDT Ancillary Procedure Department of Ophthalmology in [place], [place] [address] [place] [phone] Jerica Gallego M.D. [address] [place] [phone] 12/17/2023 3:00 PM CDT Procedure visit Department of Ophthalmology in [address] [address] Rachel Collins M.D., Ph.D. [address] [place] [phone] 12/17/2023 3:15 PM CDT Ancillary Procedure Department of Ophthalmology in [place], [place] [address] [place] [phone] Rachel Collins M.D., Ph.D. [address] [place] [phone] 12/17/2023 3:45 PM CDT Comprehensive Visit Department of Ophthalmology in [address] [phone] Rachel Collins M.D., Ph.D. [address] [place] [phone] 12/19/2023 10:00 AM CDT Comprehensive Visit Department of Neurology in [place], [place] [address] [place] [phone] Jojo Barrientos M.D. [address] [place] [phone] 12/21/2023 9:00 AM CDT Ancillary Procedure Department of Ophthalmology in [place], [place] [address] [place] [phone] 12/21/2023 9:30 AM CDT Procedure visit Department of Ophthalmology in [place], [place] [address] [place] [phone] Rachel Collins M.D., Ph.D. 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
--- OUTSIDE RECORDS SUMMARY | 2023-11-08 10:05 | XMS_ITS | Encounter Summary ---
Author Organization [facility] Address [address] [place] [address] Care Team Providers Care Supervisory Clerk Name Role Phone Unavailable Primary Care Provider Unavailabl e Reason for Visit * Reason Onset Date Comments Appt Request 07/30/2023 Encounter Details Date Type Department Care Team (Latest Contact Info) Description 07/30/2023 Clinical Communication Department of Ophthalmology in [place], [place] [address] [place] [address] Provider, Unknown Appt Request Social History Tobacco Use Types Packs/Day Years Used Date Smoking Tobacco: Unknown [facility] Utilities Answer Date Recorded In [...] your living situation today? I have a [facility] place to live 07/25/2023 Sex [...] CDT Ancillary Procedure Department of Ophthalmology in [place], [place] [address] [place] [phone] Suri Izquierdo M.D. [address] [place] [phone] 11/09/2023 12:00 PM CDT Office Visit Department of Ophthalmology in [place], [place] [address] [place] [phone] Suri Izquierdo M.D. [address] [place] [phone] 11/22/2023 9:20 AM CDT Appointment Outpatient Procedure Center in [address] [phone] Suri Izquierdo M.D. [address] [place] [phone] 2023 12:15 PM CDT Clinical Communication Virtual Review in [place], [place] 200 [place] [address] 12/17/2023 2:30 PM CDT Ancillary Procedure Department of Ophthalmology in [place], [place] [address] [place] [phone] Red Gallego M.D. [address] [place] [phone] 12/17/2023 3:00 PM CDT Procedure visit Department of Ophthalmology in [place], [place] [address] [place] [phone] Rachel Collins M.D., Ph.D. [address] [place] [phone] 12/17/2023 3:15 PM CDT Ancillary Procedure Department of Ophthalmology in [place], [place] [address] [place] [phone] Rachel Collins M.D., Ph.D. [address] [place] [phone] 12/17/2023 3:45 PM CDT Comprehensive Visit Department of Ophthalmology in [address] [phone] Rachel Collins M.D., Ph.D. [address] [place] [phone] 12/19/2023 10:00 AM CDT Comprehensive Visit Department of Neurology in [place], [place] [address] [place] [phone] Jojo Barrientos M.D. [address] [place] [phone] 12/21/2023 9:00 AM CDT Ancillary Procedure Department of Ophthalmology in [place], [place] [address] [place] [phone] 12/21/2023 9:30 AM CDT Procedure visit Department of Ophthalmology in [place], [place] [address] [place] [address] Rachel Collins M.D., Ph.D. [address] [place] [address] documented as of this encounter Visit Diagnoses Not on filedocumented in this encounter
--- OUTSIDE RECORDS SUMMARY | 2023-11-08 10:05 | XMS_ITS | Encounter Summary ---
Author Organization [facility] Address [address] [place] [address] Care Team Providers Care Facilities Engineering Manager Name Role Phone Unavailable Primary Care Provider Unavailabl e Encounter Details Date Type Department Care Team (Latest Contact Info) Description 10/19/2023 2:00 PM CDT Ancillary Procedure Department of Ophthalmology in [place], [place] [address] [place] [address] Suri Izquierdo M.D. [address] [place] [address] Glaucoma Neovascular; Hemorrhage Vitreous Left (HCC) Social History Tobacco Use Types Packs/Day Years Used Date Smoking Tobacco: Unknown [facility] Utilities Answer Date Recorded In the past [...] your living situation today? I have a [facility] place to live 07/25/2023 Sex and Gender Information Value Date Recorded Sex Assigned at Male 07/25/2023 8:23 PM CDT Gender Identity Male 07/25/2023 8:23 PM CDT Sexual Orientation Straight 07/25/2023 8: 23 PM CDT documented as of this encounter Plan of Treatment Upcoming Encounters Date Type Department Care Team (Latest Contact Info) Description 11/09/2023 11:30 AM CDT Ancillary Procedure Department of Ophthalmology in [place], [place] [address] [place] [address] Suri Izquierdo M.D. [address] [place] [address] 11/09/2023 12:00 PM CDT Office Visit Department of Ophthalmology in [place], [place] [address] [place] [address] Suri Izquierdo M.D. [address] [place] [phone] 11/22/2023 9:20 AM CDT Appointment Outpatient Procedure Center in [address] [phone] Suri Izquierdo M.D. [address] [place] [address] 2023 12:15 PM CDT Clinical Communication Virtual Review in [place], [place] 200 [place] [address] 12/17/2023 2:30 PM CDT Ancillary Procedure Department of Ophthalmology in [address] [address] Red Gallego M.D. [address] [place] [phone] 12/17/2023 3:00 PM CDT Procedure visit Department of Ophthalmology in [address] [address] Rachel Collins M.D., Ph.D. [address] [place] [phone] 12/17/2023 3:15 PM CDT Ancillary Procedure Department of Ophthalmology in [address] [address] Rachel Collins M.D., Ph.D. [address] [place] [phone] 12/17/2023 3:45 PM CDT Comprehensive Visit Department of Ophthalmology in [address] [address] Rachel Collins M.D., Ph.D. [address] [place] [phone] 12/19/2023 10:00 AM CDT Comprehensive Visit Department of Neurology in [address] [address] Jojo Barrientos M.D. [address] [place] [phone] 12/21/2023 9:00 AM CDT Ancillary Procedure Department of Ophthalmology in [place], [place] [address] [place] [address] 12/21/2023 9:30 AM CDT Procedure visit Department of Ophthalmology in [place], [place] [address] [place] [address] Rachel Collins M.D., Ph.D. [address] [place] [address] documented as of this encounter Procedures Procedure [...] appears grossly attached, no mass noted. Suri GAMBINOTH [facility] [place] OPHTHALMOLGY NON-IMAGING ORDERS documented in this encounter Visit Diagnoses Diagnosis Glaucoma Neovascular Hemorrhage Vitreous Left (HCC) documented in this encounter
--- OUTSIDE RECORDS SUMMARY | 2023-11-08 10:05 | XMS_ITS | Encounter Summary ---
Author Organization [facility] Address [address] [place] [address] Care Team Providers Care Carbonizer Tester Name Role Phone Unavailable Primary Care Provider Unavailabl e Reason for Referral * MRI/CAT/PET Scan (Routine) - Closed Specialty Diagnoses / Procedures Referred By Janeth phillips Referred To Contact Radiology Diagnoses Loss Visual Procedures CT Head Neck Angiogram with IV Contrast Red Gallego M.D. [address] [place] [phone] [facility] Referral ID Status Reason Start Date Expiration Date Visits Re quested Visits Authorized [id number] Closed 07/25/2023 07/24/2024 1 1 Encounter Details Date Type Department Care Team (Late st Contact Info) Description 07/25/2023 Orders Only Department of Ophthalmology in [place], [place] [address] [place] [phone] Red Gallego M.D. [address] [place] [phone] Loss Visual (Primary Dx); Defect Visual Field Social History Tobacco Use Types Packs/Day Years Used Date Smoking Tobacco: Unknown [facility] Utilities Answer Date Recorded In the past [...] living situation today? I have a [facility] place to live 07/25/2023 Sex and [...] CDT Ancillary Procedure Department of Ophthalmology in [place], [place] 200 [place] [address] Suri Izquierdo M.D. 200 [place] [address] 11/09/2023 12:00 PM CDT Office Visit Department of Ophthalmology in [place], [place] [address] [place] [phone] Suri Izquierdo M.D. [address] [place] [phone] 11/22/2023 9:20 AM CDT Appointment Outpatient Procedure Center in [address] [phone] Suri Izquierdo M.D. [address] [place] [phone] 2023 12:15 PM CDT Clinical Communication Virtual Review in [place], [place] 200 [place] [address] 12/17/2023 2:30 PM CDT Ancillary Procedure Department of Ophthalmology in [place], [place] [address] [place] [phone] Red Gallego M.D. [address] [place] [phone] 12/17/2023 3:00 PM CDT Procedure visit Department of Ophthalmology in [place], [place] [address] [place] [phone] Rachel Collins M.D., Ph.D. [address] [place] [phone] 12/17/2023 3:15 PM CDT Ancillary Procedure Department of Ophthalmology in [place], [place] [address] [place] [phone] Rachel Collins M.D., Ph.D. [address] [place] [phone] 12/17/2023 3:45 PM CDT Comprehensive Visit Department of Ophthalmology in [place], [place] [address] [place] [phone] Rachel Collins M.D., Ph.D. [address] [place] [phone] 12/19/2023 10:00 AM CDT Comprehensive Visit Department of Neurology in [place], [place] [address] [place] [phone] Jojo Barrientos M.D. [address] [place] [phone] 12/21/2023 9:00 AM CDT Ancillary Procedure Department of Ophthalmology in [place], [place] [address] [place] [phone] 12/21/2023 9:30 AM CDT Procedure visit Department of Ophthalmology in [place], [place] [address] [place] [phone] Rachel Collins M.D., Ph.D. [address] [place] [phone] documented as of this encounter Results * (ABNORMAL) CBC with Differential, Blood (07/30/2023 8:13 AM CDT) [facility] Hemoglobin 10.9(L) 13.2 - 16.6 g/dL 07/30/2023 [...] Red Gallego M.D. LAB BLOOD ADD-ON [facility] 200 [place] [address], [facility] DTL [facility] 200 [place] [address] [facility] 200 [place] [address] * (ABNORMAL) CRP (C-Reactive Protein) (07/30/2023 8:13 AM CDT) C-Reactive Protein (CRP), S 33.6(H) <5.0 mg/L 07/30/2023 9:14 AM CDT DTL Blood (Blood, Venous) 07/30/2023 8:13 AM CDT 07/30/2023 8:52 AM CDT Red Gallego M.D. LAB BLOOD ADD-ON [facility] 200 [place], [place] [address] 200 [place] [address] * (ABNORMAL) Sedimentation Rate (07/30/2023 8:13 AM CDT) Sedimentation Rate, B 42(H) 3 - 28 mm/h 07/30/2023 10:11 AM CDT DTL Blood (Blood, Venous) 07/30/2023 8:13 AM CDT 07/30/2023 8:41 AM CDT Red Gallego M.D. LAB BLOOD ADD-ON [facility] 200 [place], [place] [address] [place] [address] 200 [place] [address] * Creatinine with Estimated GFR (07/30/2023 8:13 AM CDT) Creatinine 1.15 0.74 - 1.35 mg/dL 07/30/2023 9:14 AM CDT DTL Estimated GFR (eGFR) 66 >=60 mL/min/BSA 07/30/2023 9:14 AM CDT DTL Comment: Estimated GFR calculated using the 2020 CKD_EPI creatinine equation. Blood (Blood, Venous) 07/30/2023 8:13 AM CDT 07/30/2023 8:52 AM CDT Red Gallego M.D. LAB BLOOD ADD-ON [facility] 200 [place] [address], [facility] 200 [place] [address] * CT Head Neck Angiogram with IV [...]
--- OUTSIDE RECORDS SUMMARY | 2023-11-08 10:05 | XMS_ITS | Encounter Summary ---
Author Organization [facility] Address [address] [place] [address] Care Team Providers Care Vegetable Picker Name Role Phone Unavailable Primary Care Provider Unavailabl e Encounter Details Date Type Department Care Team (Late st Contact Info) Description 08/01/2023 Clinical Communication Division of scientific manager in [place], [place] [address] [place] [address] Prescheduling, Provider Social History Tobacco Use Types Packs/Day Years Used Date Smoking Tobacco: Unknown [facility] Utilities Answer Date Recorded In [...] Ancillary Procedure Department of Ophthalmology in [place], [place] [address] [place] [phone] Suri Izquierdo M.D. [address] [place] [phone] 11/09/2023 12:00 PM CDT Office Visit Department of Ophthalmology in [place], [place] [address] [place] [phone] Suri Izquierdo M.D. [address] [place] [phone] 11/22/2023 9:20 AM CDT Appointment Outpatient Procedure Center in [address] [phone] Suri Izquierdo M.D. [address] [place] [phone] 2023 12:15 PM CDT Clinical Communication Virtual Review in [place], [place] 200 [place] [address] 12/17/2023 2:30 PM CDT Ancillary Procedure Department of Ophthalmology in [place], [place] [address] [place] [phone] Red Gallego M.D. [address] [place] [phone] 12/17/2023 3:00 PM CDT Procedure visit Department of Ophthalmology in [place], [place] [address] [place] [phone] Rachel Collins M.D., Ph.D. [address] [place] [phone] 12/17/2023 3:15 PM CDT Ancillary Procedure Department of Ophthalmology in [place], [place] [address] [place] [phone] Rachel Collins M.D., Ph.D. [address] [place] [phone] 12/17/2023 3:45 PM CDT Comprehensive Visit Department of Ophthalmology in [place], [place] [address] [place] [phone] Rachel Collins M.D., Ph.D. [address] [place] [phone] 12/19/2023 10:00 AM CDT Comprehensive Visit Department of Neurology in [place], [place] [address] [place] [phone] Jojo Barrientos M.D. [address] [place] [phone] 12/21/2023 9:00 AM CDT Ancillary Procedure Department of Ophthalmology in [place], [place] [address] [place] [phone] 12/21/2023 9:30 AM CDT Procedure visit Department of Ophthalmology in [place], [place] [address] [place] [address] Rachel Collins M.D., Ph.D. [address] [place] [phone] documented as of this encounter Visit Diagnoses Not on filedocumented in this encounter
--- OUTSIDE RECORDS SUMMARY | 2023-11-08 10:05 | XMS_ITS | Encounter Summary ---
Author Organization [facility] Address [address] [place] [address] Care Team Providers Care Sales And Marketing Vice President Name Role Phone Unavailable Primary Care Provider Unavailabl e Encounter Details Date Type Department Care Team (Latest Contact Info) Description 07/30/2023 7:50 AM CDT - 07/30/2023 11:59 PM CDT Hospital Encounter Department of Laboratory Medicine and Pathology, [facility], in [place], [place] [address] [place] [address] Red Gallego M.D. [address] [place] [phone] Loss Visual; Defect Visual Field Discharge Disposition: Home or Self Care Social History Tobacco Use Types Packs/Day Years Used Date Smoking Tobacco: Unknown [facility] Utilities Answer Date Recorded In the past 12 months has [facility] electric, gas, oil, or water [employer] threatened to shut off services in your [...] your living situation today? I have a [facility] place to live 07/25/2023 Sex [...] eyes 2 (two) times a day. 10/19/2023 latanoprost (XALATAN) 0.005 % ophthalmic solution Administer 1 drop into both eyes at bedtime. 07/07/2023 11/02/2023 predniSONE (DELTASONE) 20 mg tablet Take 3 tablets (60 mg total) by mouth daily. 90 tablet 07/30/2023 08/17/2023 documented as of this encounter Plan of Treatment Upcoming Encounters Date Type Department Care Team (Latest Contact Info) Description 11/09/2023 11:30 AM CDT Ancillary Procedure Department of Ophthalmology in [place], [place] [address] [place] [phone] Suri Izquierdo M.D. [address] [place] [phone] 11/09/2023 12:00 PM CDT Office Visit Department of Ophthalmology in [place], [place] [address] [place] [phone] Suri Izquierdo M.D. [address] [place] [phone] 11/22/2023 9:20 AM CDT Appointment Outpatient Procedure Center in [address] [phone] Suri Izquierdo M.D. [address] [place] [phone] 2023 12:15 PM CDT Clinical Communication Virtual Review in [place], [place] 200 [place] [address] 12/17/2023 2:30 PM CDT Ancillary Procedure Department of Ophthalmology in [address] [address] Red Gallego M.D. [address] [place] [phone] 12/17/2023 3:00 PM CDT Procedure visit Department of Ophthalmology in [place], [place] [address] [place] [phone] Rachel Collins M.D., Ph.D. [address] [place] [phone] 12/17/2023 3:15 PM CDT Ancillary Procedure Department of Ophthalmology in [place], [place] [address] [place] [phone] Rachel Collins M.D., Ph.D. [address] [place] [phone] 12/17/2023 3:45 PM CDT Comprehensive Visit Department of Ophthalmology in [address] [address] Rachel Collins M.D., Ph.D. [address] [place] [phone] 12/19/2023 10:00 AM CDT Comprehensive Visit Department of Neurology in [address] [address] Jojo Barrientos M.D. [address] [place] [phone] 12/21/2023 9:00 AM CDT Ancillary Procedure Department of Ophthalmology in [address] [address] 12/21/2023 9:30 AM CDT Procedure visit Department of Ophthalmology in [address] [address] Rachel Collins M.D., Ph.D. [address] [place] [phone] documented as of this encounter Procedures Procedure [...] LAB BLOOD ADD-ON Performing Organization Address City/[facility]/ZIP Co de Phone Number [facility] [address] [place] [address], [facility] 200 [place], [place] [address] [place] [address] 200 [place] [address] * (ABNORMAL) CRP (C-Reactive Protein) (07/30/2023 8:13 AM CDT) C-Reactive Protein (CRP), S 33.6(H) <5.0 mg/L 07/30/2023 9:14 AM CDT DTL Blood (Blood, Venous) 07/30/2023 8:13 AM CDT 07/30/2023 8:52 AM CDT Red Gallego M.D. LAB BLOOD ADD-ON Performing Organization Address City/[facility]/ZIP Co de Phone Number [facility] [address] [place], [place] [address] [place] [address] 200 [place] [address] * (ABNORMAL) Sedimentation Rate (07/30/2023 8:13 AM CDT) Sedimentation Rate, B 42(H) 3 - 28 mm/h 07/30/2023 10:11 AM CDT DTL Blood (Blood, Venous) 07/30/2023 8:13 AM CDT 07/30/2023 8:41 AM CDT Red Gallego M.D. LAB BLOOD ADD-ON [facility] 200 [place] [address], [facility] 200 [place] [address] * Creatinine with Estimated GFR (07/30/2023 8:13 AM CDT) Creatinine 1.15 0.74 - 1.35 mg/dL 07/30/2023 9:14 AM CDT DTL Estimated GFR (eGFR) 66 >=60 mL/min/BSA 07/30/2023 9:14 AM CDT DTL Comment: Estimated GFR calculated using the 2020 CKD_EPI creatinine equation. Blood (Blood, Venous) 07/30/2023 8:13 AM CDT 07/30/2023 8:52 AM CDT Red Gallego M.D. LAB BLOOD ADD-ON [facility] 200 [place] [address], [facility] 200 [place] [address] documented in this encounter Visit Diagnoses Diagnosis Loss Visual Defect Visual Field documented in this encounter
--- OUTSIDE RECORDS SUMMARY | 2023-11-08 10:05 | XMS_ITS | Encounter Summary ---
Author Organization [facility] Address [address] [place] [address] Care Team Providers Care Systems Consultant Name Role Phone Unavailable Primary Care Provider Unavailabl e Reason for Referral * Outpatient (Routine) - Authorized Specialty Diagnoses / Procedures Referred By Janeth phillips Referred To Contact Diagnoses Ischemia Retina Procedures Tamayo Retinal Photocoagulation - OS - Left Eye Rachel Collins M.D., Ph.D. [address] [place] [phone] [facility] Referral ID Status Reason Start Date Expiration Date V isits Requested Visits Authorized [id number] Authorized 09/11/2023 09/10/2024 1 1 * Outpatient (Routine) - Authorized Specialty Diagnoses / Procedures Referred By Janeth phillips Referred To Contact Diagnoses Ischemia Retina Procedures Intravitreal Injection Gonda Appt Order - OS - Left Eye Rachel Collins M.D., Ph.D. [address] [place] [phone] [facility] Referral ID Status Reason Start Date Expiration Date V isits Requested Visits Authorized [id number] Authorized 09/11/2023 09/10/2024 1 1 Encounter Details Date Type Department Care Team (Late st Contact Info) Description 09/11/2023 Orders Only Department of Ophthalmology in [place], [place] [address] [place] [address] Anabel Lang C.O.A. [address] [place] [address] Ischemia Retina (Primary Dx) Social History Tobacco Use Types Packs/Day Years Used Date Smoking Tobacco: Unknown [facility] Utilities Answer Date Recorded In the [...] situation today? I have a [facility] place to live 07/25/2023 Sex and [...] CDT Ancillary Procedure Department of Ophthalmology in [place], [place] [address] [place] [phone] Suri Izquierdo M.D. [address] [place] [phone] 11/09/2023 12:00 PM CDT Office Visit Department of Ophthalmology in [place], [place] [address] [place] [phone] Suri Izquierdo M.D. [address] [place] [phone] 11/22/2023 9:20 AM CDT Appointment Outpatient Procedure Center in [address] [phone] Suri Izquierdo M.D. [address] [place] [phone] 2023 12:15 PM CDT Clinical Communication Virtual Review in [place], [place] 200 [place] [address] 12/17/2023 2:30 PM CDT Ancillary Procedure Department of Ophthalmology in [address] [phone] Red Gallego M.D. [address] [place] [phone] 12/17/2023 3:00 PM CDT Procedure visit Department of Ophthalmology in [address] [address] Rachel Collins M.D., Ph.D. [address] [place] [phone] 12/17/2023 3:15 PM CDT Ancillary Procedure Department of Ophthalmology in [place], [place] [address] [place] [phone] Rachel Collins M.D., Ph.D. [address] [place] [phone] 12/17/2023 3:45 PM CDT Comprehensive Visit Department of Ophthalmology in [place], [place] [address] [place] [phone] Rachel Collins M.D., Ph.D. [address] [place] [phone] 12/19/2023 10:00 AM CDT Comprehensive Visit Department of Neurology in [address] [phone] Jojo Barrientos M.D. [address] [place] [phone] 12/21/2023 9:00 AM CDT Ancillary Procedure Department of Ophthalmology in [place], [place] [address] [place] [phone] 12/21/2023 9:30 AM CDT Procedure visit Department of Ophthalmology in [address] [address] Rachel Collins M.D., Ph.D. [address] [place] [phone] Scheduled Orders Name Type Priority Associated Diagnoses [...]
--- OUTSIDE RECORDS SUMMARY | 2023-11-08 10:05 | XMS_ITS | Encounter Summary ---
Author Organization [facility] Address [address] [place] [address] Care Team Providers Care Disability Insurance Hearing Officer Name Role Phone Unavailable Primary Care Provider Unavailabl e Encounter Details Date Type Department Care Team (Latest Contact Info) Description 07/31/2023 Clinical Communication Department of Ophthalmology in [place], [place] [address] [place] [address] Rachel Collins M.D., Ph.D. [address] [place] [address] Social History Tobacco Use Types Packs/Day Years [...] CDT Ancillary Procedure Department of Ophthalmology in [place], [place] [address] [place] [address] Suri Izquierdo M.D. [address] [place] [address] 11/09/2023 12:00 PM CDT Office Visit Department of Ophthalmology in [place], [place] [address] [place] [address] Suri Izquierdo M.D. [address] [place] [phone] 11/22/2023 9:20 AM CDT Appointment Outpatient Procedure Center in [address] [address] Suri Izquierdo M.D. [address] [place] [address] 2023 12:15 PM CDT Clinical Communication Virtual Review in [place], [place] 200 [place] [address] 12/17/2023 2:30 PM CDT Ancillary Procedure Department of Ophthalmology in [place], [place] [address] [place] [phone] Red Gallego M.D. [address] [place] [phone] 12/17/2023 3:00 PM CDT Procedure visit Department of Ophthalmology in [place], [place] [address] [place] [phone] Rachel Collins M.D., Ph.D. [address] [place] [phone] 12/17/2023 3:15 PM CDT Ancillary Procedure Department of Ophthalmology in [place], [place] [address] [place] [phone] Rachel Collins M.D., Ph.D. [address] [place] [phone] 12/17/2023 3:45 PM CDT Comprehensive Visit Department of Ophthalmology in [address] [address] Rachel Collins M.D., Ph.D. [address] [place] [phone] 12/19/2023 10:00 AM CDT Comprehensive Visit Department of Neurology in [address] [address] Jojo Barrientos M.D. [address] [place] [phone] 12/21/2023 9:00 AM CDT Ancillary Procedure Department of Ophthalmology in [place], [place] [address] [place] [address] 12/21/2023 9:30 AM CDT Procedure visit Department of Ophthalmology in [place], [place] [address] [place] [address] Rachel Collins M.D., Ph.D. [address] [place] [address] documented as of this encounter Visit Diagnoses Not on filedocumented in this encounter
--- OUTSIDE RECORDS SUMMARY | 2023-11-08 10:05 | XMS_ITS | Encounter Summary ---
Author Organization [facility] Address [address] [place] [address] Care Team Providers Care Brim Raiser Name Role Phone Unavailable Primary Care Provider Unavailabl e Encounter Details Date Type Department Care Team (Latest Contact Info) Description 09/11/2023 Clinical Communication Department of Ophthalmology in [place], [place] [address] [place] [address] Rachel Collins M.D., Ph.D. [address] [place] [address] Social History Tobacco Use Types Packs/Day Years [...] your living situation today? I have a [facility] place to live 07/25/2023 Sex [...] CDT Ancillary Procedure Department of Ophthalmology in [place], [place] [address] [place] [address] Suri Izquierdo M.D. [address] [place] [address] 11/09/2023 12:00 PM CDT Office Visit Department of Ophthalmology in [place], [place] [address] [place] [address] Suri Izquierdo M.D. [address] [place] [phone] 11/22/2023 9:20 AM CDT Appointment Outpatient Procedure Center in [address] [address] Suri Izquierdo M.D. [address] [place] [address] 2023 12:15 PM CDT Clinical Communication Virtual Review in [place], [place] 200 [place] [address] 12/17/2023 2:30 PM CDT Ancillary Procedure Department of Ophthalmology in [place], [place] [address] [place] [phone] Red Gallego M.D. [address] [place] [phone] 12/17/2023 3:00 PM CDT Procedure visit Department of Ophthalmology in [place], [place] [address] [place] [phone] Rachel Collins M.D., Ph.D. [address] [place] [phone] 12/17/2023 3:15 PM CDT Ancillary Procedure Department of Ophthalmology in [place], [place] [address] [place] [phone] Rachel Collins M.D., Ph.D. [address] [place] [phone] 12/17/2023 3:45 PM CDT Comprehensive Visit Department of Ophthalmology in [address] [address] Rachel Collins M.D., Ph.D. [address] [place] [phone] 12/19/2023 10:00 AM CDT Comprehensive Visit Department of Neurology in [address] [address] Jojo Barrientos M.D. [address] [place] [phone] 12/21/2023 9:00 AM CDT Ancillary Procedure Department of Ophthalmology in [place], [place] [address] [place] [address] 12/21/2023 9:30 AM CDT Procedure visit Department of Ophthalmology in [place], [place] [address] [place] [address] Rachel Collins M.D., Ph.D. [address] [place] [address] documented as of this encounter Visit Diagnoses Not on filedocumented in this encounter
--- OUTSIDE RECORDS SUMMARY | 2023-11-08 10:05 | XMS_ITS | Clinical Summary ---
Author Organization [facility] [facility] Address [place], [place] [address] Care Team Providers Care Turret Press Operator Name Role Phone Marcio Gonzalez MD Primary Care Provider [phone] Allergies Active Allergy Reactions Criticality Noted Date [...] left eye two times daily. Active fluticasone mhf-rjzzmezgtkjh-k ilanterol (Trelegy Ellipta) 100-62.5-25 mcg inhalerIndications :Panlobular [...] today. He had presented to [facility] on 11/09/2018 with difficulty [...] Difficulties Recommended follow up at [facility] Stroke Clinic. Speech therapy, [...] Problem Noted Date Diagnosed Date Resolved Date alf (current) use of anticoagulants 07/07/2009 09/21/2010 Overview: INR Goal Range: 1.8 - 2.5 Encounters Date Type Department Care Team Description 10/22/2023 Refill [facility] [address] [place] [address] Dorian Draper MD Refill Request (Mirtazapine 7.5mg) 10/21/2023 Refill [facility] [address] [place] [address] Marcio Gonzalez MD Refill Request (Tramadol) 09/20/2023 Refill [facility] [address] [place] [address] Marcio Gonzalez MD Refill Request (Tramadol) 09/18/2023 Telephone [facility] [address] [facility] [address] [place] [address] Dave Maya MD Medication Management (eliquis) 08/10/2023 Refill [facility] [address] [place] [address] Marcio Gonzalez MD Refill Request (Trelegy Ellipta) 08/08/2023 2:00 PM CDT Office Visit [facility] [address] [facility] [address] Marcio Gonzalez MD Hospital F/U (Pneumonia /[facility] 07/29 - 08/01/Patient reports doing better) 08/08/2023 Travel from Last 3 Months Immunizations Name Administration Dates Next Due COVID-19 Vaccine Spikevax (M oderna 50mcg/0.5mL) 12YO+ 2468-3960 Formula PF 01/17/2023 COVID-19 vaccine (Pfizer-BioNTech 30mcg/0.3mL) [...] Respiratory Rate 18 05/02/2023 10:5 7 AM TRANSFER DRIVER Oxygen Saturation 92% 08/08/2023 2:12 PM CDT Inhaled Oxygen Concentration - - Weight 134.9 kg (297 lb 4.8 oz) 024 10:38 AM CDT Height 185.4 cm (6' 1) 05/22/2023 9:53 AM TRANSFER DRIVER Body Mass Index 39.22 05/22/2023 9:53 AM TRANSFER DRIVER Plan of Treatment Upcoming Encounters Date Type Department Care Team (Late st Contact Info) Description 11/13/2023 10:00 AM CDT Office Visit [facility] [address] [facility] [address] [place] [phone] Radha Carlin MBBS [address] [place] [address] [place] [address] Health Maintenance Due Date Last Done Comments [...] Completed 02/08/2022 Medical Devices Implanted Type Area Concert Manager Device Identifier Shelf Expiration Date Model / Serial / Lot Tissue Pericardium 0.8x8cm Phot[employer]ix Bovine - [id number] Implanted:Qty: 1 on 02/13/2022 by Kael Hernandez MD at [facility] Cv Implants Right: Groin [employer] 02/27/2022 PFP 0.8X8 / / [id number] Stent Aaa [id number] Excluder Ibc - [id number] Implanted:Qty: 1 on 02/13/2022 by Kael Hernandez MD at [facility] Right: Iliac Artery [employer] 2024 [id number] / [id number] / Stent Aaa [id number] Excluder Iic - [id number] Implanted:Qty: 1 on 02/13/2022 by Kael Hernandez MD at [facility] Right: Iliac Artery [employer] 04/20/2024 [id number] / [id number] / Procedures Procedure Name Priority Date/Time Associated Diagnosis Comments ANTI HCV Routine 02/08/2022 11:20 AM CDT Need for hepatitis C screening test CT CHEST SCREENING LOW DOSE WO CONTRAST Routine 11/01/2021 2:40 PM CDT Encounter for screening for malignant neoplasm of lung in current smoker with 30 pack year history or greater Personal history of nicotine dependence from Last 3 Months or Most Recently Relevant to Health Maintenance Results * ANTI HCV (02/08/2022 11:20 AM CDT) HEPATITIS C ANTIBODY Non-React mandie Non-React mandie 02/09/2022 2:56 PM CDT [facility] Comment:Antibodies to HCV no t detected; does not exclude the possibility of exposure to HCV. Blood BLOOD SPECIMEN / Unknown Venipuncture / Unknown 02/08/2022 11:20 AM CDT 02/08/2022 11:27 AM CDT Marcio Gonzalez MD SEND OUTS [facility] [address] [place] [address], * CT CHEST SCREENING LOW DOSE WO [...] 8:56:18 AM Pediatric and Body Radiology [email or web address] Narrative 11/02/2021 9:43 AM CDT For [...] Documents on File Type Date Recorded Patient Transition Manager Expl anation Treatment Guidelines 02/11/2022 * Full Code (Latest Code Status on File) Date Activated Date Inactivated Comments 02/13/2022 1:00 PM 02/14/2022 5:39 PM Question Answer Comments Code Status Discussion: Reviewed Preferences * Full Code Date Activated Date Inactivated Comments 02/13/2022 6:05 AM 02/13/2022 12:59 PM Question Answer Comments Code Status Discussion: Unable to Assess Preferences, Provider to review later Care Teams Turret Press Operator Relationship Specialty Start Date End Date Marc[place] [address] PCP - General Family Practice 12/20/15
--- OUTSIDE RECORDS SUMMARY | 2023-11-08 10:05 | XMS_ITS | Encounter Summary ---
Author Organization [facility] Address [address] [place] [address] Care Team Providers Care Director Security Management Name Role Phone Unavailable Primary Care Provider Unavailabl e Reason for Referral * Outpatient (Routine) - Authorized Specialty Diagnoses / Procedures Referred By Janeth phillips Referred To Contact Vascular Medicine Diagnoses Glaucoma Neovascular Suri Izquierdo M.D. [address] [place] [address] [facility] Referral ID Status Reason Start Date Expiration Date V isits Requested Visits Authorized [id number] Authorized 10/19/2023 04/19/2025 1 1 * Outpatient (Routine) - Closed Specialty Diagnoses / Procedures Referred By Janeth phillips Referred To Contact Ophthalmology Suri Izquierdo M.D. [address] [place] [address] [facility] Referral ID Status Reason Start Date Expiration Date Visits Re quested Visits Authorized [id number] Closed 10/19/2023 04/19/2025 1 1 Reason for Visit * Appointment Request (Routine) - Closed Specialty Diagnoses / Procedures Referred By Janeth phillips Referred To Contact Ophthalmology Referral ID Status Reason Start Date Expiration Date Visits Re quested Visits Authorized [id number] Closed 10/18/2023 10/17/2024 1 1 Encounter Details Date Type Department Care Team (Latest Contact Info) Description 10/19/2023 10:30 AM CDT Comprehensive Visit Department of Ophthalmology in [place], [place] [address] [place] [address] Suri Izquierdo M.D. [address] [place] [address] Glaucoma Neovascular (Primary Dx); Hemorrhage Vitreous Left [...] your living situation today? I have a [facility] place to live 07/25/2023 Sex and [...] a referral for vascular medicine here at [place] if it is more convenient to group [...] last injection with OCT macula. Injection Location: [facility] injection slot in [facility]? Left eye Staffed with Dr. Herrera. Patient [...] CDT Ancillary Procedure Department of Ophthalmology in [place], [place] [address] [place] [address] Suri Izquierdo M.D. [address] [place] [phone] 11/09/2023 12:00 PM CDT Office Visit Department of Ophthalmology in [place], [place] [address] [place] [phone] Suri Izquierdo M.D. [address] [place] [phone] 11/22/2023 9:20 AM CDT Appointment Outpatient Procedure Center in [address] [address] Suri Izquierdo M.D. [address] [place] [phone] 2023 12:15 PM CDT Clinical Communication Virtual Review in [place], [place] 200 [place] [address] 12/17/2023 2:30 PM CDT Ancillary Procedure Department of Ophthalmology in [address] [address] Red Gallego M.D. [address] [place] [phone] 12/17/2023 3:00 PM CDT Procedure visit Department of Ophthalmology in [address] [address] Rachel Collins M.D., Ph.D. [address] [place] [phone] 12/17/2023 3:15 PM CDT Ancillary Procedure Department of Ophthalmology in [address] [address] Rachel Collins M.D., Ph.D. [address] [place] [phone] 12/17/2023 3:45 PM CDT Comprehensive Visit Department of Ophthalmology in [address] [address] Rachel Collins M.D., Ph.D. [address] [place] [phone] 12/19/2023 10:00 AM CDT Comprehensive Visit Department of Neurology in [address] [address] Jojo Barrientos M.D. [address] [place] [phone] 12/21/2023 9:00 AM CDT Ancillary Procedure Department of Ophthalmology in [place], [place] [address] [place] [address] 12/21/2023 9:30 AM CDT Procedure visit Department of Ophthalmology in [place], [place] [address] [place] [address] Rachel Collins M.D., Ph.D. [address] [place] [address] Scheduled Referrals Name Type Priority Associated Diagnoses [...] attached, no mass noted. Suri Izquierdo M.D. [facility] NON-IMAGING ORDERS documented in this encounter Visit Diagnoses Diagnosis Glaucoma Neovascular- Primary Hemorrhage Vitreous Left (HCC) Glaucoma Neovascular Hemorrhage Vitreous Left (HCC) documented in this encounter
== END 2023-11-08 10:03 | disposition home or self-care (01) ==
LOC: WOUND 10:02
PROVIDERS: PCP Family Medicine; Visit Provider Nurse Practitioner Family
DX: I87.311 Chronic venous hypertension (idiopathic) with ulcer of right lower extremity (principal); I89.0 Lymphedema, not elsewhere classified; L97.212 Non-pressure chronic ulcer of right calf with fat layer exposed; Z72.0 Tobacco use
CPT/HCPCS: 97597

== ENCOUNTER 2023-11-23 10:03 | Outpatient (CLI) | payer MEDICARE, BC, SELFPAY ==
--- OUTSIDE RECORDS SUMMARY | 2023-11-23 10:05 | XMS_ITS | Encounter Summary ---
Author Organization [facility] Address [address] [place] [address] Care Team Providers Care Cloth Colors Examiner Name Role Phone Unavailable Primary Care Provider Unavailabl e Reason for Referral * Outpatient (Routine) - Authorized Specialty Diagnoses / Procedures Referred By Janeth phillips Referred To Contact Diagnoses Glaucoma Neovascular Procedures Intravitreal Injection, Pharmacologic Agent - OS - Left Eye Suri Izquierdo M.D. [address] [place] [address] [facility] Region Referral ID Status Reason Start Date Expiration Date V isits Requested Visits Authorized [id number] Authorized 10/19/2023 10/18/2024 5 5 Reason for Visit * Outpatient (Routine) - Authorized Specialty Diagnoses / Procedures Referred By Janeth phillips Referred To Contact Diagnoses Glaucoma Neovascular Procedures Intravitreal Injection, Pharmacologic Agent - OS - Left Eye Suri Izquierdo M.D. [address] [place] [address] [facility] Region Referral ID Status Reason Start Date Expiration Date V isits Requested Visits Authorized [id number] Authorized 10/19/2023 10/18/2024 5 5 Encounter Details Date Type Department Care Team (Latest Contact Info) Description 11/22/2023 9:02 AM CDT - 11/22/2023 11:59 PM CDT Hospital Encounter Outpatient Procedure Center in [address] [phone] Suri Izquierdo M.D. [address] [place] [address] Glaucoma Neovascular Discharge Disposition: Home or Self [...] your living situation today? I have a [facility] place to live 07/25/2023 Sex [...] mouth 2 (two) times a day. latanoprost (Xalatan) 0.005 % ophthalmic solution Administer 1 drop into both eyes at bedtime. 5 mL 3 11/02/2023 traMADoL (ULTRAM) 50 mg tablet Take 50 mg by mouth daily. 07/27/2023 Trelegy Ellipta 100-62.5-25 mcg inhaler 1 puff daily. documented as of this encounter Plan of Treatment Upcoming Encounters Date Type Department Care Team (Latest Contact Info) Description 11/30/2023 12:30 PM CDT Ancillary Procedure Department of Ophthalmology in [place], [place] [address] [place] [address] Suri Izquierdo M.D. 200 [place] [address] 11/30/2023 1:00 PM CDT Ancillary Procedure Department of Ophthalmology in [place], [place] [address] [place] [phone] Suri Izquierdo M.D. [address] [place] [phone] 11/30/2023 1:30 PM CDT Office Visit Department of Ophthalmology in [place], [place] [address] [place] [phone] Suri Izquierdo M.D. [address] [place] [phone] 2023 12:15 PM CDT Clinical Communication Virtual Review in [place], [place] 200 [place] [address] 12/19/2023 10:00 AM CDT Comprehensive Visit Department of Neurology in [place], [place] [address] [place] [phone] Jojo Barrientos M.D. [address] [place] [phone] 12/27/2023 1:20 PM CDT Appointment Outpatient Procedure Center in [address] [phone] Suri Izquierdo M.D. [address] [place] [phone] documented as of this encounter Procedures Procedure Name Priority Date/Time Associated Diagnosis Comments INTRAVITREAL INJECTION, PHARMACOLOGIC AGENT - OS - LEFT EYE Routine 11/22/2023 9:38 AM CDT Glaucoma Neovascular documented in this encounter Results * Intravitreal Injection, Pharmacologic Agent - OS - Left Eye (11/22/2023 9:38 AM CDT) Narrative Buzz Carlos M.D. - 11/22/2023 9:44 AM CDT Pre-Procedure Verification Pre-procedure verification conducted to verify correct patient identity, procedure to be performed and, as applicable, correct side and site. Patient consent obtained. 10/23/2023. Time Out Confirmed correct patient, procedure, site, and patient consented. Anesthesia Topical anesthesia was used. Pre/Post Procedure prep and meds used were Celluvisc 1-10 drops, Povidone 5% 1-10 drops, Povidone 10% swabs x 3 to lids and lashes, Proparacaine 0.5% 1-10 drops, Tetracaine 0.5% 1-10 drops. Procedure Details Injection: 1.25 mg bevacizumab 25 mg/mL ??Route: intravitreal, Site: Left Eye ??[facility]: 32568-097-06 Balanced salt solution irrigation to injected eye after the injection was Done. Hand motion was not present. Count fingers was not correct. Reviewed instructions and patient verbalizes understanding. Ancillary Staff Ancillary Staff: Marcie Duffy RN. Notes Patient oriented to outpatient procedure center. ??Reviewed process for scheduled procedure, and pain management including pain scale. Patient declines written post-procedure material or previously received brochure. ?? Information reviewed and understanding assessed by teach-back. ??Follow-up appointments discussed and return schedule given if requested. Left eye has only bare LP vision. Unable to detect hand motion or count fingers. Avastin, LEFT eye. [facility] 67229-115-86 LOT [id number] EXP 01/06/2024 First injection in CF. ??Poor visual potential. ??Neovascular glaucoma and high intraocular pressure. ??Would consider cyclophotocoagulation as patient is having daily headaches likely related to uncontrolled intraocular pressure on maximal medical treatment. ?? No injection complications. Nicholas Carlos MD Suri Izquierdo M.D. [facility] P ROCEDURES documented in this encounter Visit Diagnoses Diagnosis Glaucoma Neovascular documented in this encounter Administered Medications Inactive Administered Medications - up to 3 most recent administrations Medication Order MAR Action Action Date Dose Rate Site bevacizumab intraocular injection 1.25 mg (Avastin) 1.25 mg, intravitreal, One-Time Injection, Starting on Yun 11/22/23 at 0944, For 1 dose Given 11/22/2023 9:44 AM CDT 1.25 mg Left Eye documented in this encounter
--- OUTSIDE RECORDS SUMMARY | 2023-11-23 10:05 | XMS_ITS | Encounter Summary ---
Author Organization [facility] Address [address] [place] [address] Care Team Providers Care Sap Payroll Consultant Name Role Phone Unavailable Primary Care Provider Unavailabl e Encounter Details Date Type Department Care Team (Latest Contact Info) Description 10/19/2023 Clinical Communication Department of Ophthalmology in [place], [place] [address] [place] [phone] Suri Izquierdo M.D. [address] [place] [address] Social History Tobacco Use Types Packs/Day Years Used Date Smoking Tobacco: Unknown [facility] Utilities Answer Date Recorded In the [...] your living situation today? I have a [facility] place to live 07/25/2023 Sex and [...] CDT Ancillary Procedure Department of Ophthalmology in [place], [place] [address] [place] [address] Suri Izquierdo M.D. [address] [place] [phone] 11/30/2023 1:00 PM CDT Ancillary Procedure Department of Ophthalmology in [place], [place] [address] [place] [address] Suri Izquierdo M.D. [address] [place] [phone] 11/30/2023 1:30 PM CDT Office Visit Department of Ophthalmology in [place], [place] [address] [place] [phone] Suri Izquierdo M.D. [address] [place] [phone] 2023 12:15 PM CDT Clinical Communication Virtual Review in [place], [place] [address] [place] [address] 12/19/2023 10:00 AM CDT Comprehensive Visit Department of Neurology in [place], [place] [address] [place] [phone] Jojo Barrientos M.D. [address] [place] [phone] 12/27/2023 1:20 PM CDT Appointment Outpatient Procedure Center in [address] [phone] Suri Izquierdo M.D. [address] [place] [phone] documented as of this encounter Visit Diagnoses Not on filedocumented in this encounter
--- OUTSIDE RECORDS SUMMARY | 2023-11-23 10:05 | XMS_ITS | Encounter Summary ---
Author Organization [facility] Address [address] [place] [address] Care Team Providers Care Terminal Worker Name Role Phone Unavailable Primary Care Provider Unavailabl e Reason for Referral * Outpatient (Routine) - Authorized Specialty Diagnoses / Procedures Referred By Janeth phillips Referred To Contact Ophthalmology Suri Izquierdo M.D. [address] [place] [phone] [facility] Referral ID Status Reason Start Date Expiration Date V isits Requested Visits Authorized [id number] Authorized 11/09/2023 05/10/2025 1 1 Reason for Visit * Outpatient (Routine) - Closed Specialty Diagnoses / Procedures Referred By Janeth phillips Referred To Contact Ophthalmology Suri Izquierdo M.D. [address] [place] [phone] [facility] Referral ID Status Reason Start Date Expiration Date Visits Re quested Visits Authorized [id number] Closed 11/02/2023 05/03/2025 1 1 Encounter Details Date Type Department Care Team (Latest Contact Info) Description 11/09/2023 12:00 PM CDT Office Visit Department of Ophthalmology in [place], [place] [address] [place] [phone] Suri Izquierdo M.D. [address] [place] [phone] Hemorrhage Vitreous Left (HCC) (Primary Dx); Glaucoma Neovascular; Occlusion Carotid Artery Left Social History Tobacco Use Types Packs/Day Years Used Date Smoking Tobacco: Unknown [facility] Utilities Answer Date Recorded In the past [...] your living situation today? I have a [facility] place to live 07/25/2023 Sex and Gender Information Value Date Recorded Sex Assigned at Male 07/25/2023 8:23 PM CDT Gender Identity Male 07/25/2023 8:23 PM CDT Sexual Orientation Straight 07/25/2023 8: 23 PM CDT documented as of this encounter Progress Notes * Suri Izquierdo M.D. - 11/09/2023 12:00 PM CDT CC: This is a follow up visit for Andrew Shields for neovascular glaucoma, left eye. SUBJECTIVE: His left eye remains comfortable. Still having occasional headaches on the left side above his eye but it does not bother him and is significantly better than prior. Continues to struggle with depth perception. Right eye remains asymptomatic. Current drops: Latanoprost once daily, both eyes Brimonidine TID, left eye Dorzolamide BID, left eye Atropine BID, left eye POH - Cataract surgery BOTH EYES ASSESSMENT: # Neovascular glaucoma, left eye # Likely vitreous hemorrhage, left eye # Ocular ischemic syndrome, left eye # Left ICA occlusion IMPRESSION: Status post Avastin injection #1 on 10/23/23, right eye. Hyphema is improving with less cell in the anterior chamber, and vitreous hemorrhage continues to limit view to posterior pole. On gonioscopy, difficult to see all angle structures given the cell in the anterior chamber and hyphema still settled inferiorly. IOP remains well-controlled on the current drop regimen. We will continue intravitreal anti-VEGF injections every 4 weeks for 4 injections total, to be followed with OCT macula after last injection. Will need to perform panretinal photocoagulation to treatthe retinal ischemia component once the hyphema clears and anterior segment view clears to allow view into the posterior segment. It is possible that he will regain the CF vision he had back in July2023 once the hemorrhage clears, but difficult to say at this time given no view to the posterior pole. Will perform repeat B-scan at his next visit as well. Discussed importance of addressing systemic underlying cause for his ocular ischemic syndrome, especially with left ICA occlusion and prior stroke history causing him to be at high risk of future strokes. 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 PLAN: - Continue Avastin injection q4 weeks x4, plan outlined in Retinal Injection Plan below (next one on 11/22/23) - Continue latanoprost both eyes daily - Continue brimonidine TID, dorzolamide BID, and atropine BID, left eye - Continue monocular precautions - Plan for panretinal photocoagulation in the left eye once there is a view to the posterior segment - RTC in 3 weeks for follow-up, return precautions discussed - B scan left eye - OCT nerve, visual jacome, and fundus photos as glaucoma screening in right eye Retinal Injection Plan 10/23/2023 Left Eye: Avastin Left eye for Other: neovascular glaucoma 10/23/23 . Follow-up for 3 more injections of Avastin in the left eye every 4 weeks. Followup: 4 - 5 weeks after last injection with OCT macula. Injection Location: [place] injection slot in [place]? Left eye Injection plan staffed with Dr. Herrera on 10/19/23 Patient discussed and seen with Dr. Benton today, 11/09/23. Suri Izquierdo M.D. PGY-2 Ophthalmology Resident documented in this encounter Plan of Treatment Upcoming Encounters Date Type Department Care Team (Latest Contact Info) Description 11/30/2023 12:30 PM CDT Ancillary Procedure Department of Ophthalmology in [place], [place] [address] [place] [phone] Suri Izquierdo M.D. [address] [place] [phone] 11/30/2023 1:00 PM CDT Ancillary Procedure Department of Ophthalmology in [place], [place] [address] [place] [phone] Suri Izquierdo M.D. [address] [place] [phone] 11/30/2023 1:30 PM CDT Office Visit Department of Ophthalmology in [place], [place] [address] [place] [phone] Suri Izquierdo M.D. [address] [place] [phone] 2023 12:15 PM CDT Clinical Communication Virtual Review in [place], [place] 200 [place] [phone] 12/19/2023 10:00 AM CDT Comprehensive Visit Department of Neurology in [place], [place] [address] [place] [address] Jojo Barrientos M.D. 200 [place] [address] 12/27/2023 1:20 PM CDT Appointment Outpatient Procedure Center in [address] [phone] Suri Izquierdo M.D. [address] [place] [address] Scheduled Orders Name Type Priority Associated Diagnoses Orde r Schedule B-Scan Ultrasound - OS - Left Eye Ophthalmology Routine Hemorrhage Vitreous Left (HCC) 1 Occurrences starting 11/09/2023 until 02/08/2025 Automated VF - Extended - OD - Right Eye Ophthalmology Routine Glaucoma Neovascular Expected: 11/09/2023, Expires: 02/08/2025 Optical Coherence Tomography (OCT) - Optic Nerve - OD - Right Eye Ophthalmology Routine Glaucoma Neovascular Expected: 11/09/2023, Expires: 02/08/2025 Fundus Photos - OD - Right Eye Ophthalmology Routine Glaucoma Neovascular Expected: 11/09/2023, Expires: 02/08/2025 Scheduled Referrals Name Type Priority Associated Diagnoses Order Schedule Ophthalmology office visit (clinic) Outpatient Referral Routine Expected: 11/30/2023, Expires: 02/08/2025 documented as of this encounter Visit Diagnoses Diagnosis Hemorrhage Vitreous Left (HCC)- Primary Glaucoma Neovascular Occlusion Carotid Artery Left documented in this encounter
--- OUTSIDE RECORDS SUMMARY | 2023-11-23 10:05 | XMS_ITS | Referral Summary ---
Author Organization [facility] Address [address] [place] [address] Care Team Providers Care Rolling Attendant Name Role Phone Unavailable Primary Care Provider Unavailabl e Source Comments Patient records contain information from all sites at [facility]. For routine questions regarding patient records, call [phone] during business hours, M-F 8:00 AM - 5:00 PM Central Time. Record requests for emergency care only can be directed to [phone] at any time.[facility] Encounters Date Type Department Care Team Description 11/22/2023 9:02 AM CDT - 11/22/2023 11:59 PM CDT Hospital Encounter Outpatient Procedure Center in [address] [address] Suri Izquierdo M.D. Glaucoma Neovascular Discharge Disposition: Home or Self Care 11/09/2023 12:00 PM CDT Office Visit Department of Ophthalmology in [place], [place] [address] [place] [address] Suri Izquierdo M.D. Hemorrhage Vitreous Left (HCC) (Primary Dx); Glaucoma Neovascular; Occlusion Carotid Artery Left 11/02/2023 12:45 PM CDT Office Visit Department of Ophthalmology in [place], [place] [address] [place] [address] Suri Izquierdo M.D. Hemorrhage Vitreous Left (HCC) (Primary Dx); Ischemia Retina; Occlusion Carotid Artery Left 10/23/2023 2:54 PM CDT - 10/23/2023 11:59 PM CDT Hospital Encounter Outpatient Procedure Center in [place], [place] [address] [place] [phone] Shelia Laughlin M.D. Discharge Disposition: Home or Self Care 10/23/2023 Orders Only Department of Ophthalmology in [place], [place] [address] [place] [phone] Anabel Lang C.O.A. Glaucoma Neovascular (Primary Dx) 10/23/2023 2:20 PM CDT Ancillary Procedure Department of Ophthalmology in [place], [place] [address] [place] [phone] 10/23/2023 1:51 PM CDT - 10/23/2023 2:53 PM CDT Hospital Encounter Outpatient Procedure Center in [place], [place] [address] [place] [phone] Suri Izquierdo M.D. Glaucoma Neovascular Discharge Disposition: Home or Self Care 10/23/2023 12:30 PM CDT Office Visit Department of Ophthalmology in [address] [address] Suri Izquierdo M.D. Occlusion Carotid Artery Left (Primary Dx); Ischemia Retina; Glaucoma Neovascular; Neuropathy Optic Ischemic Bilateral 10/19/2023 Orders Only Department of Ophthalmology in [address] [phone] Juan David Cabrales M.D. Glaucoma Neovascular (Primary Dx); Hemorrhage Vitreous Left (HCC) 10/19/2023 Clinical Communication Department of Ophthalmology in [address] [address] Suri Izquierdo M.D. 10/19/2023 Ancillary Procedure Department of Ophthalmology 10/19/2023 2:00 PM CDT Ancillary Procedure Department of Ophthalmology in [address] [address] Suri Izquierdo M.D. Glaucoma Neovascular; Hemorrhage Vitreous Left (HCC) 10/19/2023 10:30 AM CDT Comprehensive Visit Department of Ophthalmology in [place], [place] [address] [place] [phone] Suri Izquierdo M.D. Glaucoma Neovascular (Primary Dx); Hemorrhage Vitreous Left (HCC) 10/18/2023 Clinical Communication Department of Ophthalmology in [place], [place] [address] [place] [phone] Provider, Unknown 10/16/2023 Clinical Communication Department of Ophthalmology in [place], [place] [address] [place] [address] Red Gallego M.D. 09/11/2023 Orders Only Department of Ophthalmology in [place], [place] [address] [place] [phone] Anabel Lang C.O.A. Ischemia Retina (Primary Dx) 09/11/2023 Clinical Communication Department of Ophthalmology in [place], [place] [address] [place] [phone] Rachel Collins M.D., Ph.D. from Last 3 [...] 2 (two) times a day. 2 mL 10/19/2023 Active dorzolamide (Trusopt) 2 % ophthalmic solution Administer 1 drop into the left eye 2 (two) times a day. 10 mL 12 10/19/2023 Active latanoprost (Xalatan) 0.005 % ophthalmic solution Administer 1 drop into both eyes at bedtime. 5 mL 3 11/02/2023 Active latanoprost (XALATAN) 0.005 % ophthalmic solution [...] CDT Ancillary Procedure Department of Ophthalmology in [place], [place] [address] [place] [address] Suri Izquierdo M.D. 200 [place] [address] 11/30/2023 1:00 PM CDT Ancillary Procedure Department of Ophthalmology in [place], [place] [address] [place] [address] Suri Izquierdo M.D. 200 [place] [address] 11/30/2023 1:30 PM CDT Office Visit Department of Ophthalmology in [place], [place] [address] [place] [address] Suri Izquierdo M.D. [address] [place] [phone] 2023 12:15 PM CDT Clinical Communication Virtual Review in [place], [place] 200 [place] [address] 12/19/2023 10:00 AM CDT Comprehensive Visit Department of Neurology in [place], [place] [address] [place] [phone] Jojo Barrientos M.D. [address] [place] [phone] 12/27/2023 1:20 PM CDT Appointment Outpatient Procedure Center in [address] [address] Suri Izquierdo M.D. [address] [place] [phone] Medical Devices Implanted Type Area Calender Machine Operator Device Identifier Shelf Expiration Date Model / Serial / Lot J J Sig Patella Oval 41 - Briones [id number] Implanted:Qty: 1 on 10/23/2011 Knee Implant Other/Legacy - See Implant Description [employer] Description:Device Manufactu rer - J [employer] J [employer]. Body Location - Other. Left. Device Status Text - [id number] [id number]. Depuy-Insert Stabilized Sz 5 12.5mm - Briones [id number] Implanted:Qty: 1 on 10/23/2011 Knee Implant Other/Legacy - See Implant Description [employer] Description:Device Manufactu rer - J & J Ortho. Body Location - Other. Left. Device Status Text - KNEE [id number]. Depuy-Tib Tray Mod Cement Cocr Sz5 - Briones [id number] Implanted:Qty: 1 on 10/23/2011 Knee Implant Other/Legacy - See Implant Description [employer] Description:Device Manufactu rer - J & J Ortho. Body Location - Other. Left. Device Status Text - KNEE [id number]. Sigma Post Stab.W Lug Fem Sz 6 Lt - Briones [id number] Implanted:Qty: 1 on 10/23/2011 Knee Implant Other/Legacy - See Implant Description [employer] Description:Device Manufactu rer - [employer].. Body Location - Other. Left. Device Status Text - KNEE [id number]. Cement Bone Large - Briones [id number] Implanted:Qty: 2 on 10/23/2011 Misc Other [place] Description:Device Manufactu rer - Beverly Amarilis.. Device Status Text - [id number]. Procedures Procedure Name Priority Date/Time Associated Diagnosis Comments INTRAVITREAL INJECTION, PHARMACOLOGIC AGENT - OS - LEFT EYE Routine 11/22/2023 9:38 AM CDT Glaucoma Neovascular INTRAVITREAL INJECTION, PHARMACOLOGIC AGENT [...] - Left Eye (11/22/2023 9:38 AM CDT) Buzz Cagle M.D. - 11/22/2023 9:44 AM CDT Pre-Procedure [...] 25 mg/mL ??Route: intravitreal, Site: Left Eye ??[facility]: 45579-850-53 Balanced salt solution irrigation to injected eye [...] motion or count fingers. Avastin, LEFT eye. [facility] 31247-118-74 LOT [id number] EXP 01/06/2024 First injection in [place]. ??Poor visual potential. ??Neovascular glaucoma and high intraocular pressure. ??Would consider cyclophotocoagulation as patient is having daily headaches likely related to uncontrolled intraocular pressure on maximal medical treatment. ?? No injection complications. Nicholas Carlos MD Suri Izquierdo M.D. OPHTH CLINIC P ROCEDURES * Intravitreal Injection, Pharmacologic Agent - OS [...] 25 mg/mL ??Route: intravitreal, Site: Left Eye ??[facility]: 22561-082-33 Balanced salt solution irrigation to injected eye [...] and return schedule given if requested. MEHRDAD [id number] Exp 01/06/24 Shelia Moody M.D. [facility] PRO CEDURES * B-Scan Ultrasound - OS - Left Eye (10/19/2023 3:27 PM CDT) Narrative OPHTHALMOLGY NON-IMAGING ORDERS - 10/19/2023 8:17 PM CDT Quality was good. Notes 10/19/2023 B-scan Left Eye: Moderate to dense vitreous opacities layered inferiorly and possible traction near 430PE. Retina appears grossly attached, no mass noted. Suri Izquierdo M.D. [facility] ULTRASOU [place] OPHTHALMOLGY NON-IMAGING ORDERS * Eyes US-Eye [id number] Image Exam (10/19/2023 12:00 AM CDT) Narrative IIMS - 10/19/2023 3:24 PM CDT This order has been created and auto-finalized to support the import of images acquired without order. The clinical documentation to support these images can be found on the encounter that produced images. Provider Not In System IMG NON RAD IMAGI NG PROCEDURES Performing Organization Address City/[facility] Co de Phone Number IIMS NA * [...] M.D. LAB BLOOD ADD-ON Performing Organization Address [facility] de Phone Number [facility] [address] [place] [address], [facility] DTL [facility] [address] [place] [address] * (ABNORMAL) Electrolyte Panel with Creatinine Dimple (10/26/2011 4:13 AM CDT) BUN (Blood Urea Nitrogen), S 8 8 - 24 MG/DL [facility] Sodium, P 135 135 - 145 MMOL/L [facility] HX Bicarbonate, P/S 32(H) 22 - 29 MMOL/L [facility] Potassium, P 4.5 3.6 - 5.2 MMOL/L [facility] Chloride, S 98(L) 100 - 108 MMOL/L [facility] Creatinine, Dimple 0.8(L) 0.9 - 1.4 MG/DL [facility] Glucose, S 117 70 - 140 MG/DL [facility] 10/26/2011 4:13 AM CDT 10/26/2011 4:13 AM CDT Allison Redmond P.A.-C., P.A. LAB BLOOD A DD-ON [facility] [address] [place] [address], [facility] from Last 3 Months or Most Recently Relevant to Health Maintenance
--- OUTSIDE RECORDS SUMMARY | 2023-11-23 10:05 | XMS_ITS | Clinical Summary ---
Author Organization [facility] Address [address] [place] [address] Care Team Providers Care Ecology Teacher Name Role Phone Unavailable Primary Care Provider Unavailabl e Source Comments Patient records contain information from all sites at [facility]. For routine questions regarding patient records, call [phone] during business hours, M-F 8:00 AM - 5:00 PM Central Time. Record requests for emergency care only can be directed to [phone] at any time.[facility] Allergies Active Allergy Reactions Criticality Noted [...] 2 (two) times a day. 10 mL 10/19/2023 Active latanoprost (Xalatan) 0.005 % ophthalmic solution Administer 1 drop into both eyes at bedtime. 5 mL 11/02/2023 Active latanoprost (XALATAN) 0.005 % ophthalmic [...] CDT Hospital Encounter Outpatient Procedure Center in [address] [address] Suri Izquierdo M.D. Glaucoma Neovascular Discharge Disposition: Home or Self Care 11/09/2023 12:00 PM CDT Office Visit Department of Ophthalmology in [address] [address] Suri Izquierdo M.D. Hemorrhage Vitreous Left (HCC) (Primary Dx); Glaucoma Neovascular; Occlusion Carotid Artery Left 11/02/2023 12:45 PM CDT Office Visit Department of Ophthalmology in [place], [place] [address] [place] [phone] Suri Izquierdo M.D. Hemorrhage Vitreous Left (HCC) (Primary Dx); Ischemia Retina; Occlusion Carotid Artery Left 10/23/2023 2:54 PM CDT - 10/23/2023 11:59 PM CDT Hospital Encounter Outpatient Procedure Center in [place], [place] [address] [place] [phone] Shelia Laughlin M.D. Discharge Disposition: Home or Self Care 10/23/2023 2:20 PM CDT Ancillary Procedure Department of Ophthalmology in [place] [address] [place] [phone] 10/23/2023 1:51 PM CDT - 10/23/2023 2:53 PM CDT Hospital Encounter Outpatient Procedure Center in [place], [place] [address] [place] [phone] Suri Izquierdo M.D. Glaucoma Neovascular Discharge Disposition: Home or Self Care 10/23/2023 12:30 PM CDT Office Visit Department of Ophthalmology in [place], [place] [address] [place] [phone] Suri Izquierdo M.D. Occlusion Carotid Artery Left (Primary Dx); Ischemia Retina; Glaucoma Neovascular; Neuropathy Optic Ischemic Bilateral 10/23/2023 Orders Only Department of Ophthalmology in [address] [phone] Anabel Lang C.O.A. Glaucoma Neovascular (Primary Dx) 10/19/2023 2:00 PM CDT Ancillary Procedure Department of Ophthalmology in [place], [place] [address] [place] [phone] Suri Izquierdo M.D. Glaucoma Neovascular; Hemorrhage Vitreous Left (HCC) 10/19/2023 10:30 AM CDT Comprehensive Visit Department of Ophthalmology in [place], [place] [address] [place] [phone] Suri Izquierdo M.D. Glaucoma Neovascular (Primary Dx); Hemorrhage Vitreous Left (HCC) 10/19/2023 Orders Only Department of Ophthalmology in [address] [address] Juan David Cabrales M.D. Glaucoma Neovascular (Primary Dx); Hemorrhage Vitreous Left (HCC) 10/19/2023 Clinical Communication Department of Ophthalmology in [place], [place] [address] [place] [phone] Suri Izquierdo M.D. 10/19/2023 Ancillary Procedure Department of Ophthalmology 10/18/2023 Clinical Communication Department of Ophthalmology in [place], [place] [address] [place] [phone] Provider, Unknown 10/16/2023 Clinical Communication Department of Ophthalmology in [place], [place] [address] [place] [address] Red Gallego M.D. 09/11/2023 Orders Only Department of Ophthalmology in [place], [place] [address] [place] [phone] Anabel Lang C.O.A. Ischemia Retina (Primary Dx) 09/11/2023 Clinical Communication Department of Ophthalmology in [place], [place] [address] [place] [address] Rachel Collins M.D., Ph.D. from Last 3 [...] your living situation today? I have a [employer] place to live 07/25/2023 Sex and Gender [...] CDT Ancillary Procedure Department of Ophthalmology in [place], [place] [address] [place] [address] Suri Izquierdo M.D. 200 [place] [address] 11/30/2023 1:00 PM CDT Ancillary Procedure Department of Ophthalmology in [place], [place] [address] [place] [address] Suri Izquierdo M.D. 200 [place] [address] 11/30/2023 1:30 PM CDT Office Visit Department of Ophthalmology in [place], [place] [address] [place] [address] Suri Izquierdo M.D. [address] [place] [phone] 2023 12:15 PM CDT Clinical Communication Virtual Review in [place], [place] [address] [place] [address] 12/19/2023 10:00 AM CDT Comprehensive Visit Department of Neurology in [place], [place] [address] [place] [phone] Jojo Barrientos M.D. [address] [place] [phone] 12/27/2023 1:20 PM CDT Appointment Outpatient Procedure Center in [address] [phone] Suri Izquierdo M.D. [address] [place] [phone] Health Maintenance Due Date Last Done Comments [...] 07/30/2018, 01/11/2016 Fall Risk Screen (Annual) Completed 11/22/2023 Medical Devices Implanted Type Area Body Rolling Machine Tender Device Identifier Shelf Expiration Date Model / Serial / Lot J J Sig Patella Oval 41 - Briones [id number] Implanted:Qty: 1 on 10/23/2011 Knee Implant Other/Legacy - See Implant Description [employer] Description:Device Manufactu rer - J [employer] J [employer]. Body Location - Other. Left. Device Status Text - KNEE [id number]. Depuy-Insert Stabilized Sz 5 12.5mm - Briones [id number] Implanted:Qty: 1 on 10/23/2011 Knee Implant Other/Legacy - See Implant Description [employer] Description:Device Manufactu rer - J & J Ortho. Body Location - Other. Left. Device Status Text - KNEE [id number]. Depuy-Tib Tray Mod Cement Cocr Sz5 - Briones [id number] Implanted:Qty: 1 on 10/23/2011 Knee Implant Other/Legacy - See Implant Description [employer] Description:Device Manufactu rer - J & J Ortho. Body Location - Other. Left. Device Status Text - KNEE [id number]. Sigma Post Stab.W Lug Fem Sz 6 Lt - Briones [id number] Implanted:Qty: 1 on 10/23/2011 Knee Implant Other/Legacy - See Implant Description [employer] Description:Device Manufactu rer - J [employer] J [employer]. Body Location - Other. Left. Device Status Text - KNEE [id number]. Cement Bone Large - Briones [id number] Implanted:Qty: 2 on 10/23/2011 Misc Other [place] Description:Device Manufactu rer - Beverly Amarilis.. Device [...] 25 mg/mL ??Route: intravitreal, Site: Left Eye ??[facility]: 07030-569-36 Balanced salt solution irrigation to injected eye after the injection was Done. Hand motion was not present. Count fingers was not correct. Reviewed instructions and patient verbalizes understanding. Ancillary Staff Ancillary Staff: Macrie Duffy RN. Notes Patient oriented to outpatient [...] motion or count fingers. Avastin, LEFT eye. [facility] 71954-237-37 LOT [id number] EXP 01/06/2024 First injection in [place]. ??Poor visual potential. ??Neovascular glaucoma and high intraocular pressure. ??Would consider cyclophotocoagulation as patient is having daily headaches likely related to uncontrolled intraocular pressure on maximal medical treatment. ?? No injection complications. Nicholas Carlos MD Suri Izquierdo M.D. OPH CLINIC P ROCEDURES * Intravitreal Injection, Pharmacologic [...] 25 mg/mL ??Route: intravitreal, Site: Left Eye ??[facility]: 20260-176-92 Balanced salt solution irrigation to injected eye [...] and return schedule given if requested. MEHRDAD [id number] Exp 01/06/24 Shelia Moody M.D. [facility] PRO CEDURES * B-Scan Ultrasound - OS - Left Eye (10/19/2023 3:27 PM CDT) Narrative OPHTHALMOLGY NON-IMAGING ORDERS - 10/19/2023 8:17 PM CDT Quality was good. Notes 10/19/2023 B-scan Left Eye: Moderate to dense vitreous opacities layered inferiorly and possible traction near 430PE. Retina appears grossly attached, no mass noted. Suri Izquierdo M.D. [facility] ULTRASOU ND Performing Organization Address City/[facility]/ZIP Co de Phone Number OPHTHALMOLGY NON-IMAGING ORDERS * Eyes US-Eye [id number] Image Exam (10/19/2023 12:00 AM CDT) Narrative IIMS - 10/19/2023 3:24 PM CDT This order has been created and auto-finalized to support the import of images acquired without order. The clinical documentation to support these images can be found on the encounter that produced images. Provider Not In System IMG NON RAD IMAGI NG PROCEDURES Performing Organization Address City/[facility]/ZIP Co de Phone Number IIMS NA * [...] M.D. LAB BLOOD ADD-ON Performing Organization Address City/[facility]/ZIP Co de Phone Number [facility] [address] [place] [address], [facility] DTL [facility] [address] [place] [address] * (ABNORMAL) Electrolyte Panel with Creatinine Dimple (10/26/2011 4:13 AM CDT) BUN (Blood Urea Nitrogen), S 8 8 - 24 MG/DL [facility] Sodium, P 135 135 - 145 MMOL/L [facility] HX Bicarbonate, P/S 32(H) 22 - 29 MMOL/L [facility] Potassium, P 4.5 3.6 - 5.2 MMOL/L [facility] Chloride, S 98(L) 100 - 108 MMOL/L [facility] Creatinine, Dimple 0.8(L) 0.9 - 1.4 MG/DL [facility] Glucose, S 117 70 - 140 MG/DL [facility] 10/26/2011 4:13 AM CDT 10/26/2011 4:13 AM CDT Allison Redmond P.A.-C., P.A. LAB BLOOD A DD-ON Performing Organization Address [facility] Co de Phone Number [facility] [address] [place] [address], [facility] from Last 3 Months or Most Recently Relevant to Health Maintenance
--- OUTSIDE RECORDS SUMMARY | 2023-11-23 10:05 | XMS_ITS ---
Author Organization [facility] Address [address] [place] [address] Care Team Providers Care Data Software Engineer Name Role Phone Unavailable Unavailable Unavailable Surgery Details Not on file Complications Check Surgery Details section. Procedure Estimated Blood Loss Check Surgery Details section. Procedure Findings Check Surgery Details section. Procedure Specimens Taken Check Surgery Details section.
--- OUTSIDE RECORDS SUMMARY | 2023-11-23 10:05 | XMS_ITS | Encounter Summary ---
Author Organization [facility] Address [address] [place] [address] Care Team Providers Care Program Mgr Name Role Phone Unavailable Primary Care Provider Unavailabl e Reason for Referral * Outpatient (Routine) - Authorized Specialty Diagnoses / Procedures Referred By Janeth phillips Referred To Contact Diagnoses Glaucoma Neovascular Procedures Intravitreal Injection, Pharmacologic Agent - OS - Left Eye Suri Izquierdo M.D. [address] [place] [address] [facility] Referral ID Status Reason Start Date Expiration Date V isits Requested Visits Authorized [id number] Authorized 10/19/2023 10/18/2024 5 5 * Outpatient (Routine) - Authorized Specialty Diagnoses / Procedures Referred By Janeth phillips Referred To Contact Ophthalmology Suri Izquierdo M.D. [address] [place] [address] [facility] Referral ID Status Reason Start Date Expiration Date V isits Requested Visits Authorized [id number] Authorized 10/19/2023 04/19/2025 1 1 Scheduling Instructions Left Eye: Avastin Left eye for Other: Neovascular glaucoma within 1 week. Follow-up for 3 more injections of Avastin in the left eye every 4 - weeks. Followup: 4 - 5 weeks after last injection with OCT macula. Injection Location: [place] Hold injection slot in [place]? Left eye Encounter Details Date Type Department Care Team (Late st Contact Info) Description 10/19/2023 Orders Only Department of Ophthalmology in [place], [place] [address] [place] [address] Juan David Cabrales M.D. [address] [place] [address] Glaucoma Neovascular (Primary Dx); Hemorrhage Vitreous Left [...] CDT Ancillary Procedure Department of Ophthalmology in [address] [phone] Suri Izquierdo M.D. [address] [place] [phone] 11/30/2023 1:00 PM CDT Ancillary Procedure Department of Ophthalmology in [address] [address] Suri Izquierdo M.D. [address] [place] [phone] 11/30/2023 1:30 PM CDT Office Visit Department of Ophthalmology in [address] [phone] Suri Izquierdo M.D. [address] [place] [phone] 2023 12:15 PM CDT Clinical Communication Virtual Review in [address] [address] 12/19/2023 10:00 AM CDT Comprehensive Visit Department of Neurology in [address] [address] Jojo Barrientos M.D. [address] [place] [phone] 12/27/2023 1:20 PM CDT Appointment Outpatient Procedure Center in [address] [phone] Suri Izquierdo M.D. [address] [place] [address] Scheduled Orders Name Type Priority Associated Diagnoses Orde r Schedule Optical Coherence Tomography - Macula/Retina - OU - Both Eyes Ophthalmology Routine Hemorrhage Vitreous Left (HCC) 1 Occurrences starting 10/19/2023 until 01/18/2025 Intravitreal Injection, Pharmacologic Agent - OS - Left Eye Ophthalmology Routine Glaucoma Neovascular 4 weeks for 5 Occurrences starting 10/19/2023 until 10/18/2026, 2 completed Scheduled Referrals Name Type Priority Associated Diagnoses Order Schedule Ophthalmology office visit (clinic) Outpatient Referral Routine 1 Occurrences starting 10/19/2023 until 10/18/2026 documented as of this encounter Results * Intravitreal Injection, Pharmacologic [...] 25 mg/mL ??Route: intravitreal, Site: Left Eye ??[facility]: 337[address]-835-26 Balanced salt solution irrigation to injected eye [...] motion or count fingers. Avastin, LEFT eye. [facility] 39019-846-90 LOT [id number] EXP 01/06/2024 First injection in [place]. ??Poor [...] Primary Hemorrhage Vitreous Left (HCC) Glaucoma Neovascular documented in this encounter
--- OUTSIDE RECORDS SUMMARY | 2023-11-23 10:05 | XMS_ITS | Encounter Summary ---
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 200 [place] [address] [facility] Referral ID Status Reason Start Date Expiration Date V isits Requested Visits Authorized [id number] Authorized 10/23/2023 04/23/2025 1 1 * Outpatient (Routine) - Closed Specialty Diagnoses / Procedures Referred By Janeth phillips Referred To Contact Ophthalmology Suri Izquierdo M.D. [address] [place] [address] [facility] Referral ID Status Reason Start Date Expiration Date Visits Re quested Visits Authorized [id number] Closed 10/23/2023 04/23/2025 1 1 Scheduling Instructions VTD Reason for Visit * Outpatient (Routine) - Closed Specialty Diagnoses / Procedures Referred By Janeth phillips Referred To Contact Ophthalmology Suri Izquierdo M.D. [address] [place] [address] [facility] Referral ID Status Reason Start Date Expiration Date Visits Re quested Visits Authorized [id number] Closed 10/19/2023 04/19/2025 1 1 Encounter Details Date Type Department Care Team (Latest Contact Info) Description 10/23/2023 12:30 PM CDT Office Visit Department of Ophthalmology in [place], [place] [address] [place] [address] Suri Izquierdo M.D. [address] [place] [address] Occlusion Carotid Artery Left (Primary Dx); Ischemia [...] had to drive to pharmacy in [facility] to fill the prescription. He is otherwise using all his eye drops as instructed. After discussing with his children, he decided that he would prefer to establish care with a vascular specialist and or stroke specialist here at [facility], so he did not reach out to [...] place a referral tostroke neurology here at [facility]. PLAN: - Avastin injection this afternoon in [...] last injection with OCT macula. Injection Location: [facility] injection slot in [place]? Left eye Staffed with Dr. Herrera on 10/19/23 Patient discussed and seen with Dr. Sanchez today. Suri Izquierdo M.D. PGY-2 Ophthalmology Resident documented in this encounter Plan of Treatment Upcoming Encounters Date Type Department Care Team (Latest Contact Info) Description 11/30/2023 12:30 PM CDT Ancillary Procedure Department of Ophthalmology in [place], [place] [address] [place] [address] Suri Izquierdo M.D. [address] [place] [address] 11/30/2023 1:00 PM CDT Ancillary Procedure Department of Ophthalmology in [place], [place] [address] [place] [address] Suri Izquierdo M.D. [address] [place] [address] 11/30/2023 1:30 PM CDT Office Visit Department of Ophthalmology in [place], [place] [address] [place] [phone] Suri Izquierdo M.D. [address] [place] [phone] 2023 12:15 PM CDT Clinical Communication Virtual Review in [place], [place] 200 [place] [address] 12/19/2023 10:00 AM CDT Comprehensive Visit Department of Neurology in [place], [place] [address] [place] [phone] Jojo Barrientos M.D. [address] [place] [phone] 12/27/2023 1:20 PM CDT Appointment Outpatient Procedure Center in [address] [phone] Suri Izquierdo M.D. [address] [place] [phone] Scheduled Referrals Name Type Priority Associated Diagnoses [...]
--- OUTSIDE RECORDS SUMMARY | 2023-11-23 10:05 | XMS_ITS | Encounter Summary ---
Author Organization [facility] Address [address] [place] [address] Care Team Providers Care Maintenance Planning Clerk Name Role Phone Unavailable Primary Care Provider Unavailabl e Reason for Referral * Outpatient (Routine) - Authorized Specialty Diagnoses / Procedures Referred By Janeth phillips Referred To Contact Diagnoses Glaucoma Neovascular Procedures Intravitreal Injection, Pharmacologic Agent - OS - Left Eye Suri Izquierdo M.D. 200 [place] [address] [facility] Region Referral ID Status Reason Start Date Expiration Date V isits Requested Visits Authorized [id number] Authorized 10/19/2023 10/18/2024 5 5 Reason for Visit * Outpatient (Routine) - Authorized Specialty Diagnoses / Procedures Referred By Janeth phillips Referred To Contact Diagnoses Glaucoma Neovascular Procedures Intravitreal Injection, Pharmacologic Agent - OS - Left Eye Suri Izquierdo M.D. [address] [place] [address] [facility] Region Referral ID Status Reason Start Date Expiration Date V isits Requested Visits Authorized [id number] Authorized 10/19/2023 10/18/2024 5 5 Encounter Details Date Type Department Care Team (Latest Contact Info) Description 10/23/2023 1:51 PM CDT - 10/23/2023 2:53 PM CDT Hospital Encounter Outpatient Procedure Center in [place], [place] [address] [place] [phone] Suri Izquierdo M.D. [address] [place] [address] Glaucoma Neovascular Discharge Disposition: Home or Self [...] CDT Ancillary Procedure Department of Ophthalmology in [place], [place] [address] [place] [phone] Suri Izquierdo M.D. [address] [place] [phone] 11/30/2023 1:00 PM CDT Ancillary Procedure Department of Ophthalmology in [place], [place] [address] [place] [phone] Suri Izquierdo M.D. [address] [place] [phone] 11/30/2023 1:30 PM CDT Office Visit Department of Ophthalmology in [place], [place] [address] [place] [phone] Suri Izquierdo M.D. [address] [place] [phone] 2023 12:15 PM CDT Clinical Communication Virtual Review in [place], [place] 200 [place] [address] 12/19/2023 10:00 AM CDT Comprehensive Visit Department of Neurology in [place], [place] [address] [place] [phone] Jojo Barrientos M.D. [address] [place] [phone] 12/27/2023 1:20 PM CDT Appointment Outpatient Procedure Center in [address] [phone] Suri Izquierdo M.D. [address] [place] [phone] documented as of this encounter Procedures Procedure [...] 25 mg/mL ??Route: intravitreal, Site: Left Eye ??[facility]: 31380-637-71 Balanced salt solution irrigation to injected eye [...] and return schedule given if requested. MEHRDAD [id number] Exp 01/06/24 Shelia Moody M.D. [facility] [...]
--- OUTSIDE RECORDS SUMMARY | 2023-11-23 10:05 | XMS_ITS | Encounter Summary ---
Author Organization [facility] Address [address] [place] [address] Care Team Providers Care Bottle Washer Machine Name Role Phone Unavailable Primary Care Provider Unavailabl e Encounter Details Date Type Department Care Team (Late st Contact Info) Description 10/19/2023 Ancillary Procedure Department of Ophthalmology Social History Tobacco Use Types Packs/Day Years Used Date Smoking Tobacco: Unknown [facility] Utilities Answer Date Recorded In the past 12 months has th e electric, gas, oil, or water [employer] threatened to shut off services in your [...] your living situation today? I have a [facility] place to live 07/25/2023 [...] CDT Ancillary Procedure Department of Ophthalmology in [place], [place] [address] [place] [phone] Suri Izquierdo M.D. [address] [place] [phone] 11/30/2023 1:00 PM CDT Ancillary Procedure Department of Ophthalmology in [place], [place] [address] [place] [phone] Suri Izquierdo M.D. [address] [place] [phone] 11/30/2023 1:30 PM CDT Office Visit Department of Ophthalmology in [place], [place] [address] [place] [phone] Suri Izquierdo M.D. [address] [place] [phone] 2023 12:15 PM CDT Clinical Communication Virtual Review in [place], [place] 200 [place] [address] 12/19/2023 10:00 AM CDT Comprehensive Visit Department of Neurology in [place], [place] [address] [place] [phone] Jojo Barrientos M.D. [address] [place] [address] 12/27/2023 1:20 PM CDT Appointment Outpatient Procedure Center in [address] [phone] Suri Izquierdo M.D. [address] [place] [address] documented as of this encounter Procedures Procedure Name Priority Date/Time Associated Diagnosis Comments OPHTHALMOLOGY IMAGE EXAM Routine 10/19/2023 12:00 AM CDT documented in this encounter Results * Eyes US-Eye G-Faqa-Ihxyjlfihnisi Image Exam (10/19/2023 12:00 AM CDT) Narrative [...]
--- OUTSIDE RECORDS SUMMARY | 2023-11-23 10:05 | XMS_ITS | Encounter Summary ---
Author Organization [facility] Address [address] [place] [address] Care Team Providers Care Insulation Worker Apprentice Name Role Phone Unavailable Primary Care Provider Unavailabl e Encounter Details Date Type Department Care Team (Late st Contact Info) Description 10/23/2023 2:20 PM CDT Ancillary Procedure Department of Ophthalmology in [place], [place] [address] [place] [address] Social History Tobacco Use Types Packs/Day Years Used Date Smoking Tobacco: Unknown [facility] Utilities Answer Date Recorded In [...] your living situation today? I have a [facility] place to live 07/25/2023 Sex and [...] CDT Ancillary Procedure Department of Ophthalmology in [place], [place] [address] [place] [phone] Suri Izquierdo M.D. [address] [place] [phone] 11/30/2023 1:00 PM CDT Ancillary Procedure Department of Ophthalmology in [place], [place] [address] [place] [phone] Suri Izquierdo M.D. [address] [place] [phone] 11/30/2023 1:30 PM CDT Office Visit Department of Ophthalmology in [place], [place] [address] [place] [phone] Suri Izquierdo M.D. [address] [place] [phone] 2023 12:15 PM CDT Clinical Communication Virtual Review in [place], [place] 200 [place] [address] 12/19/2023 10:00 AM CDT Comprehensive Visit Department of Neurology in [place], [place] [address] [place] [address] Jojo Barrientos M.D. [address] [place] [phone] 12/27/2023 1:20 PM CDT Appointment Outpatient Procedure Center in [address] [phone] Suri Izquierdo M.D. [address] [place] [address] documented as of this encounter Visit Diagnoses Not on filedocumented in this encounter
--- OUTSIDE RECORDS SUMMARY | 2023-11-23 10:05 | XMS_ITS | Encounter Summary ---
Author Organization [facility] Address [address] [place] [address] Care Team Providers Care Barrel And Receiver Aligner Name Role Phone Unavailable Primary Care Provider Unavailabl e Encounter Details Date Type Department Care Team (Latest Contact Info) Description 10/23/2023 2:54 PM CDT - 10/23/2023 11:59 PM CDT Hospital Encounter Outpatient Procedure Center in [place], [place] [address] [place] [address] Shelia Laughlin M.D. [address] [place] [address] Discharge Disposition: Home or Self Care Social History Tobacco Use Types Packs/Day Years Used Date Smoking Tobacco: Unknown [facility] Utilities Answer Date Recorded In the past 12 months has [facility] electric, gas, oil, or water [employer] threatened to shut off services in your [...] your living situation today? I have a [facility] place to live 07/25/2023 Sex and [...] Ancillary Procedure Department of Ophthalmology in [address] [phone] Suri Izquierdo M.D. [address] [place] [phone] 11/30/2023 1:00 PM CDT Ancillary Procedure Department of Ophthalmology in [place], [place] [address] [place] [phone] Suri Izquierdo M.D. [address] [place] [phone] 11/30/2023 1:30 PM CDT Office Visit Department of Ophthalmology in [address] [phone] Suri Izquierdo M.D. [address] [place] [phone] 2023 12:15 PM CDT Clinical Communication Virtual Review in [place], [place] 200 [place] [address] 12/19/2023 10:00 AM CDT Comprehensive Visit Department of Neurology in [address] [phone] Jojo Barrientos M.D. [address] [place] [phone] 12/27/2023 1:20 PM CDT Appointment Outpatient Procedure Center in [address] [address] Suri Izquierdo M.D. [address] [place] [address] documented as of this encounter Procedures Procedure [...] mg/mL ??Route: intravitreal, Site: Left Eye ??[facility]: 29770-699-03 Balanced salt solution irrigation to injected eye [...] and return schedule given if requested. MEHRDAD [id number] Exp 01/06/24 Shelia Moody M.D. [facility] PRO CEDURES documented in this encounter Visit Diagnoses Not on filedocumented in this encounter
--- OUTSIDE RECORDS SUMMARY | 2023-11-23 10:05 | XMS_ITS | Encounter Summary ---
Author Organization [facility] Address [address] [place] [address] Care Team Providers Care Special Order Jeweler Name Role Phone Unavailable Primary Care Provider Unavailabl e Encounter Details Date Type Department Care Team (Late st Contact Info) Description 10/23/2023 Orders Only Department of Ophthalmology in [place], [place] [address] [place] [phone] Anabel Lang, C.O.A. [address] [place] [phone] Glaucoma Neovascular (Primary Dx) Social History Tobacco Use Types Packs/Day Years Used Date Smoking Tobacco: Unknown [facility] Utilities Answer Date Recorded In the past [address] [facility] electric, gas, oil, or water [...] your living situation today? I have a [facility] place to live 07/25/2023 Sex and [...] CDT Ancillary Procedure Department of Ophthalmology in [place], [place] [address] [place] [address] Suri Izquierdo M.D. [address] [place] [phone] 11/30/2023 1:00 PM CDT Ancillary Procedure Department of Ophthalmology in [place], [place] [address] [place] [phone] Suri Izquierdo M.D. [address] [place] [phone] 11/30/2023 1:30 PM CDT Office Visit Department of Ophthalmology in [place], [place] [address] [place] [phone] Suri Izquierdo M.D. [address] [place] [phone] 2023 12:15 PM CDT Clinical Communication Virtual Review in [place], [place] [address] [place] [address] 12/19/2023 10:00 AM CDT Comprehensive Visit Department of Neurology in [place], [place] [address] [place] [phone] Jojo Barrientos M.D. [address] [place] [phone] 12/27/2023 1:20 PM CDT Appointment Outpatient Procedure Center in [address] [phone] Suri Izquierdo M.D. [address] [place] [phone] documented as of this encounter Visit Diagnoses Diagnosis Glaucoma Neovascular- Primary documented in this encounter
--- OUTSIDE RECORDS SUMMARY | 2023-11-23 10:05 | XMS_ITS | Encounter Summary ---
Author Organization [facility] Address [address] [place] [address] Care Team Providers Care Manager Project Name Role Phone Unavailable Primary Care Provider Unavailabl e Reason for Referral * Outpatient (Routine) - Authorized Specialty Diagnoses / Procedures Referred By Janeth phillips Referred To Contact Vascular Medicine Diagnoses Ischemia Retina Occlusion Carotid Artery Left Suri Izquierdo M.D. [address] [place] [phone] [facility] Referral ID Status Reason Start Date Expiration Date V isits Requested Visits Authorized [id number] Authorized 11/03/2023 05/04/2025 1 1 * Outpatient (Routine) - Closed Specialty Diagnoses / Procedures Referred By Janeth phillips Referred To Contact Ophthalmology Suri Izquierdo M.D. [address] [place] [phone] [facility] Referral ID Status Reason Start Date Expiration Date Visits Re quested Visits Authorized [id number] Closed 11/02/2023 05/03/2025 1 1 Reason for Visit * Reason Comments Occlusion Carotid Artery Lef * Outpatient (Routine) - Closed Specialty Diagnoses / Procedures Referred By Janeth phillips Referred To Contact Ophthalmology Suri Izquierdo M.D. [address] [place] [address] [facility] Referral ID Status Reason Start Date Expiration Date Visits Re quested Visits Authorized [id number] Closed 10/23/2023 04/23/2025 1 1 Encounter Details Date Type Department Care Team (Latest Contact Info) Description 11/02/2023 12:45 PM CDT Office Visit Department of Ophthalmology in [place], [place] [address] [place] [address] Suri Izquierdo M.D. [address] [place] [address] Hemorrhage Vitreous Left (HCC) (Primary Dx); Ischemia Retina; Occlusion Carotid Artery Left Social History Tobacco Use Types Packs/Day Years Used Date Smoking Tobacco: Unknown [facility] Utilities Answer Date Recorded In [...] understanding.He is scheduled with neurology here at [place] in December. The patient plans to schedule an appointment with his vascular physician in the [facility], and I have placed a referral for [...] last injection with OCT macula. Injection Location: [facility] injection slot in [place]? Left eye Staffed with Dr. Herrera on 10/19/23 Patient discussed and seen with Dr. Calderon today. Suri Izquierdo M.D. PGY-2 Ophthalmology Resident documented in this encounter Plan of Treatment Upcoming Encounters Date Type Department Care Team (Latest Contact Info) Description 11/30/2023 12:30 PM CDT Ancillary Procedure Department of Ophthalmology in [place], [place] [address] [place] [address] Suri Izquierdo M.D. [address] [place] [address] 11/30/2023 1:00 PM CDT Ancillary Procedure Department of Ophthalmology in [place], [place] [address] [place] [address] Suri Izquierdo M.D. [address] [place] [address] 11/30/2023 1:30 PM CDT Office Visit Department of Ophthalmology in [place], [place] [address] [place] [phone] Suri Izquierdo M.D. [address] [place] [phone] 2023 12:15 PM CDT Clinical Communication Virtual Review in [place], [place] [address] [place] [address] 12/19/2023 10:00 AM CDT Comprehensive Visit Department of Neurology in [place], [place] [address] [place] [phone] Jojo Barrientos M.D. [address] [place] [phone] 12/27/2023 1:20 PM CDT Appointment Outpatient Procedure Center in [address] [phone] Suri Izquierdo M.D. [address] [place] [phone] Scheduled Referrals Name Type Priority Associated Diagnoses [...]
--- OUTSIDE RECORDS SUMMARY | 2023-11-23 10:06 | XMS_ITS | Encounter Summary ---
Author Organization [facility] Address [address] [place] [address] Care Team Providers Care Electronic Commerce Specialist Name Role Phone Unavailable Primary Care Provider Unavailabl e Reason for Visit * Reason Comments Decreased Visual Acuity * Appointment Request (Routine) - Closed Specialty Diagnoses / Procedures Referred By Janeth phillips Referred To Contact Ophthalmology Diagnoses Neuropathy Optic Ischemic Graciela Giron O.D. [address], [place] [address] Referral ID Status Reason Start Date Expiration Date Visits Re quested Visits Authorized [id number] Closed 04/27/2023 04/26/2024 1 1 Encounter Details Date Type Department Care Team (Latest Contact Info) Description 07/30/2023 3:15 PM CDT Comprehensive Visit Department of Ophthalmology in [place], [place] [address] [place] [phone] Jerica Gallego M.D. 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 Outside testin03/27/23: 1/15/24: documented in this encounter Miscellaneous Notes * Addendum Note - Jerica Gallego M.D. - 07/30/2023 3:15 PM CDTAddended by: JERICA GALLEGO on: 08/17/2023 05:19 PM Modules accepted: Orders documented in this encounter Plan of Treatment Upcoming Encounters Date Type Department Care Team (Latest Contact Info) Description 11/30/2023 12:30 PM CDT Ancillary Procedure Department of Ophthalmology in [address] [phone] Suri Izquierdo M.D. [address] [place] [phone] 11/30/2023 1:00 PM CDT Ancillary Procedure Department of Ophthalmology in [address] [phone] Suri Izquierdo M.D. [address] [place] [phone] 11/30/2023 1:30 PM CDT Office Visit Department of Ophthalmology in [address] [phone] Suri Izquierdo M.D. [address] [place] [phone] 2023 12:15 PM CDT Clinical Communication Virtual Review in [address] [address] 12/19/2023 10:00 AM CDT Comprehensive Visit Department of Neurology in [address] [phone] Jojo Barrientos M.D. [address] [place] [phone] 12/27/2023 1:20 PM CDT Appointment Outpatient Procedure Center in [address] [phone] Suri Izquierdo M.D. 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
--- OUTSIDE RECORDS SUMMARY | 2023-11-23 10:06 | XMS_ITS | Encounter Summary ---
Author Organization [facility] Address [address] [place] [address] Care Team Providers Care Artillery Maintenance Supervisor Name Role Phone Unavailable Primary Care Provider Unavailabl e Encounter Details Date Type Department Care Team (Latest Contact Info) Description 10/19/2023 2:00 PM CDT Ancillary Procedure Department of Ophthalmology in [place], [place] [address] [place] [address] Suri Izquierdo M.D. [address] [place] [address] Glaucoma Neovascular; Hemorrhage Vitreous Left (HCC) Social History Tobacco Use Types Packs/Day Years Used Date Smoking Tobacco: Unknown [facility] Utilities Answer Date Recorded In [...] your living situation today? I have a [facility] place to [facility] 07/25/2023 Sex and [...] CDT Ancillary Procedure Department of Ophthalmology in [place], [place] [address] [place] [address] Suri Izquierdo M.D. [address] [place] [phone] 11/30/2023 1:00 PM CDT Ancillary Procedure Department of Ophthalmology in [place], [place] [address] [place] [address] Suri Izquierdo M.D. [address] [place] [phone] 11/30/2023 1:30 PM CDT Office Visit Department of Ophthalmology in [place], [place] [address] [place] [address] Suri Izquierdo M.D. [address] [place] [phone] 2023 12:15 PM CDT Clinical Communication Virtual Review in [place], [place] [address] [place] [address] 12/19/2023 10:00 AM CDT Comprehensive Visit Department of Neurology in [place], [place] [address] [place] [address] Jojo Barrientos M.D. [address] [place] [phone] 12/27/2023 1:20 PM CDT Appointment Outpatient Procedure Center in [address] [address] Suri Izquierdo M.D. [address] [place] [phone] documented as of this encounter Procedures Procedure [...] no mass noted. Suri Izquierdo M.D. [facility] NON-IMAGING ORDERS documented in this encounter Visit Diagnoses Diagnosis Glaucoma Neovascular Hemorrhage Vitreous Left (HCC) documented in this encounter
--- OUTSIDE RECORDS SUMMARY | 2023-11-23 10:06 | XMS_ITS | Encounter Summary ---
Author Organization [facility] Address [address] [place] [address] Care Team Providers Care Top Lift Scourer Name Role Phone Unavailable Primary Care Provider Unavailabl e Reason for Visit * Reason Onset Date Comments Appt Request 07/25/2023 Encounter Details Date Type Department Care Team (Latest Contact Info) Description 07/25/2023 Clinical Communication Department of Ophthalmology in [place], [place] [address] [place] [phone] Red Gallego M.D. [address] [place] [address] Appt Request Social History Tobacco Use Types [...] CDT Ancillary Procedure Department of Ophthalmology in [place], [place] [address] [place] [address] Suri Izquierdo M.D. [address] [place] [phone] 11/30/2023 1:00 PM CDT Ancillary Procedure Department of Ophthalmology in [place], [place] [address] [place] [address] Suri Izquierdo M.D. [address] [place] [phone] 11/30/2023 1:30 PM CDT Office Visit Department of Ophthalmology in [place], [place] [address] [place] [address] Suri Izquierdo M.D. [address] [place] [phone] 2023 12:15 PM CDT Clinical Communication Virtual Review in [place], [place] 200 [place] [address] 12/19/2023 10:00 AM CDT Comprehensive Visit Department of Neurology in [place], [place] [address] [place] [phone] Jojo Barrientos M.D. [address] [place] [phone] 12/27/2023 1:20 PM CDT Appointment Outpatient Procedure Center in [address] [phone] Suri Izquierdo M.D. [address] [place] [phone] documented as of this encounter Visit Diagnoses Not on filedocumented in this encounter
--- OUTSIDE RECORDS SUMMARY | 2023-11-23 10:06 | XMS_ITS | Clinical Summary ---
Author Organization [facility] Address [place], [place] [address] Care Team Providers Care Truss Designer Name Role Phone Marcio Gonzalez MD Primary Care Provider [phone] Allergies Active Allergy Reactions Criticality Noted Date [...] choice. 18 Each 5 11/09/19 23 Active acetic acid 0.25% 0.25 [...] mouth once daily with a meal. Active brimonidine (ALPHAGAN) 0.2 % ophthalmic solution Place 1 Drop into left eye two times daily. Active apixaban (ELIQUIS) 5 mg tabletIndications: Paroxysmal atrial fibrillation (HC) Take 1 Tablet (5 mg) by mouth two times daily. 180 Tablet 2 09/18/19 24 Active potassium chloride (Klor-Con M20) 20 mEq extended-release tablet (part/cryst)Indica tions:Edema of right lower extremity TAKE 1 TABLET (20 MEQ) BY MOUTH TWO TIMES DAILY WITH MEALS. 180 Tablet 11/14/19 24 Active atorvastatin (LIPITOR) 40 mg tabletIndications: Other hyperlipidemia TAKE 1 TABLET BY MOUTH AT BEDTIME 90 Tablet 11/14/19 24 Active furosemide (LASIX) 20 mg tabletIndications: Edema of right lower extremity TAKE 1 TABLET BY MOUTH TWO TIMES DAILY. 180 Tablet 11/14/19 24 Active fluticasone gio-hpjpneclxanj-n ilanterol (Trelegy Ellipta) 100-62.5-25 mcg inhalerIndications :Panlobular emphysema (HC) INHALE 1 PUFF BY MOUTH EVERY DAY 180 Each 1 11/14/19 24 Active traMADoL (ULTRAM) 50 mg tabletIndications: Right leg pain TAKE 1 TABLET BY MOUTH DAILY NEEDED FOR WOUND PAIN OR BACK PAIN 30 Tablet 11/14/19 24 Active latanoprost (XALATAN) 0.005 % ophthalmic solution Place 1 Drop into both eyes. 11/02/19 24 Active dorzolamide (TRUSOPT) 2 % ophthalmic solution INSTILL 1 DROP INTO LEFT EYE TWICE A DAY Active atropine (ISOPTO ATROPINE) 1 % ophthalmic solution Place 1 Drop into left eye two times daily. 10/19/19 24 Active dilTIAZem (DILACOR XR; DILTIA XT) 180 mg Extended-Release capsuleIndications :Paroxysmal atrial fibrillation (HC) Take 1 Capsule (180 mg) by mouth once daily. 90 Capsule 3 11/13/19 24 Active mirtazapine (REMERON) 7.5 mg tabletIndications: Chronic insomnia Take 1 Tablet (7.5 mg) by mouth at bedtime. Please take at 7PM 60 Tablet 11/15/19 24 Active potassium chloride (KLOR-CON) 20 mEq extended-release tablet (part/cryst)Indica tions:Edema of right lower extremity Take 1 Tablet (20 mEq) by mouth two times daily with meals. 180 Tablet 3 11/09/19 23 024 Discontinued furosemide (LASIX) 20 mg tabletIndications: Edema of right lower extremity Take 1 Tablet (20 mg) by mouth two times daily. 180 Tablet 3 11/09/19 23 024 Discontinued atorvastatin (LIPITOR) 40 mg tabletIndications: Other hyperlipidemia Take 1 Tablet (40 mg) by mouth at bedtime. 90 Tablet 3 11/09/19 23 024 Discontinued dilTIAZem (DILACOR XR; DILTIA XT) 180 mg Extended-Release capsuleIndications :Paroxysmal atrial fibrillation (HC) Take 1 Capsule (180 mg) by mouth once daily. 90 Capsule 06/19/19 24 024 Discontinued(Re order (E-cancel not sent)) fluticasone egr-zubxilvzsxyr-b ilanterol (Trelegy Ellipta) 100-62.5-25 mcg inhalerIndications :Panlobular emphysema (HC) INHALE 1 PUFF BY MOUTH EVERY DAY 180 Each 08/11/19 24 024 Discontinued traMADoL (ULTRAM) 50 mg tabletIndications: Right leg pain TAKE 1 TABLET BY MOUTH DAILY NEEDED FOR WOUND PAIN OR BACK PAIN 30 Tablet 10/22/19 24 024 Discontinued mirtazapine (REMERON) 7.5 mg tabletIndications: Chronic insomnia Take 1 Tablet (7.5 mg) by mouth at bedtime. Please take at 7PM 90 Tablet 10/23/19 24 024 Discontinued(*A vailability/For mulary change/Cost of medication) Active Problems Problem Noted Date Diagnosed Date History of stroke 07/27/2023 Overview: left MCA territory ischemic stroke, pmh of HLD, tobacco use, morbid obesity, COPD, BRITNEY and chronic back pain who is following up in stroke clinic today. He had presented to [facility] on 11/09/2018 with difficulty finding words and [...] Word Finding Difficulties Recommended follow up at [facility]. Speech therapy, OT, and PHYSICAL [...] Date Type Department Care Team Description 11/22/2023 Telephone [facility] [address] [place] [address] Ricarda Bautista MD Appointment Request 11/13/2023 10:00 AM CDT Office Visit [facility] [address] [place] [address] Radha Carlin MBBS CV General Cardiology Est (IN PERSON - 4MO ROUTINE CHECK//PCP:Marcio Gonzalez MD/) 11/13/2023 Travel 11/12/2023 Refill [facility] [address] [place] [address] Dorian Draper MD Refill Request (Mirtazapine 7.5mg tablet) 11/12/2023 Telephone [facility] [address] [place] [address] Ricarda Bautista MD Appointment Request 11/12/2023 Refill [facility] [address] [place] [address] Marcio Gonzalez MD Refill Request (Klor-con M20, Atorvastatin, Furosemide, Trelegy Ellipta, Tramadol) 10/22/2023 Refill [facility] [address] [place] [address] Dorian Draper MD Refill Request (Mirtazapine 7.5mg) 10/21/2023 Refill [facility] [address] [place] [address] Marcio Gonzalez MD Refill Request (Tramadol) 09/20/2023 Refill [facility] [address] [place] [address] Marcio Gonzalez MD Refill Request (Tramadol) 09/18/2023 Telephone [facility] [address] [place] [address] Dave Maya MD Medication Management (eliquis) from Last 3 Months Immunizations Name Administration Dates Next Due COVID-19 Vaccine Spikevax (M oderna 50mcg/0.5mL) 12YO+ 3421-7012 Formula PF 01/17/2023 COVID-19 vaccine ([employer] 30mcg/0.3mL) P F, MDV 06/22/2020,06/01/2020 Influenza, High-dose [...] Tobacco: Every Day Cigarettes 1 60.3 Started: 1963; Last attempted to quit: 07/30/2023 Smokeless Tobacco: Never Tobacco Cessation:Ready to Q uit: Not Asked; Counseling Given: Not Answered Comments:15-20 cigarettes a day- updated 11/13/2023 Alcohol Use Standard Drinks/Week Comments Yes 3 (1 standard drink = 0.6 oz pur e alcohol) 3 beers a day PHQ-2 Answer Date Recorded [...] Sign Reading Time Taken Comments Blood Pressure 124/60 11/13/2023 10:03 AM CDT Pulse 53 11/13/2023 10:03 AM CDT Temperature 37 ??C (98.6 ??F) 07/27/2023 10: 38 AM CDT Respiratory Rate 18 05/02/2023 10:5 7 AM SALES PLANNING COORDINATOR Oxygen Saturation 92% 11/13/2023 10: 03 AM CDT Inhaled Oxygen Concentration - - Weight 130.8 kg (288 lb 4.8 oz) 024 10:03 AM CDT Height 185.4 cm (6' 1) 05/22/2023 9:53 AM SALES PLANNING COORDINATOR Body Mass Index 38.04 05/22/2023 9:53 AM SALES PLANNING COORDINATOR Plan of Treatment Upcoming Encounters Date Type Department Care Team (Late st Contact Info) Description 12/04/2023 3:30 PM CDT Office Visit [facility] [address] [place] [address] Ricarda Bautista MD [address] [place] [address] 01/01/2024 10:00 AM CDT Office Visit [facility] [address] [place] [address] Marcio Gonzalez MD [address] [place] [address] Health Maintenance Due Date Last Done Comments [...] Completed 02/08/2022 Medical Devices Implanted Type Area Extension Division Director Device Identifier Shelf Expiration Date Model / Serial / Lot Tissue Pericardium 0.8x8cm [employer]ix Bovine - [id number] Implanted:Qty: 1 on 02/13/2022 by Kael Hernandez MD at [facility] Cv Implants Right: Groin [employer] 02/27/2022 PFP 0.8X8 / / [id number] Stent Aaa [id number] Excluder Ibc - [id number] Implanted:Qty: 1 on 02/13/2022 by Kael Hernandez MD at [facility] Right: Iliac Artery [employer] 2024 [id number] / [id number] / Stent Aaa [id number] Excluder Iic - [id number] Implanted:Qty: 1 on 02/13/2022 by Kael Hernandez MD at [facility] Right: Iliac Artery [employer] 04/20/2024 [id number] / [id number] / Procedures Procedure Name Priority Date/Time Associated Diagnosis Comments EKG 12 LEAD Routine 11/13/2023 10:44 AM CDT Paroxysmal atrial fibrillation (HC) ANTI HCV Routine 02/08/2022 11:20 AM CDT Need for hepatitis C screening test CT CHEST SCREENING LOW DOSE WO CONTRAST Routine 11/01/2021 2:40 PM CDT Encounter for screening for malignant neoplasm of lung in current smoker with 30 pack year history or greater Personal history of nicotine dependence from Last 3 Months or Most Recently Relevant to Health Maintenance Results * EKG 12 LEAD (11/13/2023 10:44 AM CDT) Interpretation Normal sinus rhythm Normal ECG Ventricular Rate 63 BPM Atrial Rate 63 BPM P-R Interval 180 ms QRS Duration 112 ms QT 408 ms QTc 417 ms P Darrington 76 degrees R Darrington 46 degrees T Darrington 50 degrees 11/13/2023 10:4 4 AM CDT 11/13/2023 5:50 PM CDT Radha Macedo Raegan MBBS EKG ORD * ANTI HCV (02/08/2022 11:20 AM CDT) HEPATITIS C ANTIBODY Non-React mandie Non-React mandie 02/09/2022 2:56 PM CDT [facility] Comment:Antibodies to HCV no t detected; does not exclude the possibility of exposure to HCV. Blood BLOOD SPECIMEN / Unknown Venipuncture / Unknown 02/08/2022 11:20 AM CDT 02/08/2022 11:27 AM CDT Marcio Gonzalez MD SEND OUTS [facility] [address] [place] [address], * CT CHEST SCREENING LOW DOSE WO [...] Documents on File Type Date Recorded Patient Stucco Laborer Expl anation Treatment Guidelines 02/11/2022 * Full Code (Latest Code Status on File) Date Activated Date Inactivated Comments 02/13/2022 1:00 PM 02/14/2022 5:39 PM Question Answer Comments Code Status Discussion: Reviewed Preferences * Full Code Date Activated Date Inactivated Comments 02/13/2022 6:05 AM 02/13/2022 12:59 PM Question Answer Comments Code Status Discussion: Unable to Assess Preferences, Provider to review later Care Teams Truss Designer Relationship Specialty Start Date End Date Marcio Gonzalez MD [address] [place] [address] PCP - General Family Practice 12/20/15
--- OUTSIDE RECORDS SUMMARY | 2023-11-23 10:06 | XMS_ITS | Encounter Summary ---
Author Organization [facility] Address [address] [place] [address] Care Team Providers Care Coil Cutter Name Role Phone Unavailable Primary Care Provider Unavailabl e Encounter Details Date Type Department Care Team (Latest Contact Info) Description 09/11/2023 Clinical Communication Department of Ophthalmology in [place], [place] [address] [place] [address] Rachel Collins M.D., Ph.D. [address] [place] [address] Social History Tobacco Use Types Packs/Day Years [...] CDT Ancillary Procedure Department of Ophthalmology in [place], [place] [address] [place] [address] Suri Izquierdo M.D. [address] [place] [phone] 11/30/2023 1:00 PM CDT Ancillary Procedure Department of Ophthalmology in [place], [place] [address] [place] [address] Suri Izquierdo M.D. [address] [place] [phone] 11/30/2023 1:30 PM CDT Office Visit Department of Ophthalmology in [place], [place] [address] [place] [address] Suri Izquierdo M.D. [address] [place] [phone] 2023 12:15 PM CDT Clinical Communication Virtual Review in [place], [place] [address] [place] [address] 12/19/2023 10:00 AM CDT Comprehensive Visit Department of Neurology in [place], [place] [address] [place] [phone] Jojo Barrientos M.D. [address] [place] [phone] 12/27/2023 1:20 PM CDT Appointment Outpatient Procedure Center in [address] [phone] Suri Izquierdo M.D. [address] [place] [phone] documented as of this encounter Visit Diagnoses Not on filedocumented in this encounter
--- OUTSIDE RECORDS SUMMARY | 2023-11-23 10:06 | XMS_ITS | Encounter Summary ---
Author Organization [facility] Address [address] [place] [address] Care Team Providers Care Pocket Secretary Assembler Name Role Phone Unavailable Primary Care Provider Unavailabl e Encounter Details Date Type Department Care Team (Late st Contact Info) Description 08/01/2023 Clinical Communication Division of boilermaker mechanic in [place], [place] [address] [place] [address] Prescheduling, Provider Social History Tobacco Use Types Packs/Day Years Used Date Smoking Tobacco: Unknown [facility] Utilities Answer Date Recorded In [...] your living situation today? I have a [facility] place to live 07/25/2023 Sex [...] CDT Ancillary Procedure Department of Ophthalmology in [place], [place] [address] [place] [phone] Suri Izquierdo M.D. [address] [place] [phone] 11/30/2023 1:00 PM CDT Ancillary Procedure Department of Ophthalmology in [place], [place] [address] [place] [phone] Suri Izquierdo M.D. [address] [place] [phone] 11/30/2023 1:30 PM CDT Office Visit Department of Ophthalmology in [place], [place] [address] [place] [phone] Suri Izquierdo M.D. [address] [place] [phone] 2023 12:15 PM CDT Clinical Communication Virtual Review in [place], [place] 200 [place] [address] 12/19/2023 10:00 AM CDT Comprehensive Visit Department of Neurology in [place], [place] [address] [place] [address] Jojo Barrientos M.D. [address] [place] [phone] 12/27/2023 1:20 PM CDT Appointment Outpatient Procedure Center in [address] [phone] Suri Izquierdo M.D. [address] [place] [address] documented as of this encounter Visit Diagnoses Not on filedocumented in this encounter
--- OUTSIDE RECORDS SUMMARY | 2023-11-23 10:06 | XMS_ITS | Encounter Summary ---
Author Organization [facility] Address [address] [place] [address] Care Team Providers Care Flight Nurse Name Role Phone Unavailable Primary Care Provider Unavailabl e Reason for Visit * Reason Onset Date Comments Appt Request 07/30/2023 Encounter Details Date Type Department Care Team (Latest Contact Info) Description 07/30/2023 Clinical Communication Department of Ophthalmology in [place], [place] [address] [place] [address] Provider, Unknown Appt Request Social History Tobacco [...] situation today? I have a [facility] place to live 07/25/2023 Sex [...] CDT Ancillary Procedure Department of Ophthalmology in [place], [place] [address] [place] [phone] Suri Izquierdo M.D. [address] [place] [phone] 11/30/2023 1:00 PM CDT Ancillary Procedure Department of Ophthalmology in [place], [place] [address] [place] [phone] Suri Izquierdo M.D. [address] [place] [phone] 11/30/2023 1:30 PM CDT Office Visit Department of Ophthalmology in [place], [place] [address] [place] [phone] Suri Izquierdo M.D. [address] [place] [phone] 2023 12:15 PM CDT Clinical Communication Virtual Review in [place], [place] 200 [place] [address] 12/19/2023 10:00 AM CDT Comprehensive Visit Department of Neurology in [place], [place] [address] [place] [address] Jojo Barrientos M.D. [address] [place] [address] 12/27/2023 1:20 PM CDT Appointment Outpatient Procedure Center in [address] [phone] Suri Izquierdo M.D. [address] [place] [address] documented as of this encounter Visit Diagnoses Not on filedocumented in this encounter
--- OUTSIDE RECORDS SUMMARY | 2023-11-23 10:06 | XMS_ITS | Encounter Summary ---
Author Organization [facility] Address [address] [place] [address] Care Team Providers Care Reconciliation Analyst Name Role Phone Unavailable Primary Care Provider Unavailabl e Reason for Referral * Outpatient (Routine) - Authorized Specialty Diagnoses / Procedures Referred By Janeth phillips Referred To Contact Vascular Medicine Diagnoses Glaucoma Neovascular Suri Izquierdo M.D. [address] [place] [address] [facility] Referral ID Status Reason Start Date Expiration Date V isits Requested Visits Authorized [id number] Authorized 10/19/2023 04/19/2025 1 1 * Outpatient (Routine) - Closed Specialty Diagnoses / Procedures Referred By Janeth phillips Referred To Contact Ophthalmology Suri Izquierdo M.D. [address] [place] [address] [facility] Referral ID Status Reason Start Date Expiration Date Visits Re quested Visits Authorized [id number] Closed 10/19/2023 04/19/2025 1 1 Reason for Visit * Appointment Request (Routine) - Closed Specialty Diagnoses / Procedures Referred By Janeth phillips Referred To Contact Ophthalmology Referral ID Status Reason Start Date Expiration Date Visits Re quested Visits Authorized [id number] Closed 10/18/2023 10/17/2024 1 1 Encounter Details Date Type Department Care Team (Latest Contact Info) Description 10/19/2023 10:30 AM CDT Comprehensive Visit Department of Ophthalmology in [place], [place] [address] [place] [address] Suri Izquierdo M.D. [address] [place] [address] Glaucoma Neovascular (Primary Dx); Hemorrhage Vitreous Left (HCC) Social History Tobacco Use Types Packs/Day Years Used Date Smoking Tobacco: Unknown [facility] Utilities Answer Date Recorded In [...] a referral for vascular medicine here at [facility] if it is more convenient to group [...] last injection with OCT macula. Injection Location: Alea injection slot in [place]? Left eye Staffed with Dr. Herrera. Patient [...] CDT Ancillary Procedure Department of Ophthalmology in [place], [place] [address] [place] [phone] Suri Izquierdo M.D. [address] [place] [phone] 11/30/2023 1:00 PM CDT Ancillary Procedure Department of Ophthalmology in [place], [place] [address] [place] [phone] Suri Izquierdo M.D. [address] [place] [phone] 11/30/2023 1:30 PM CDT Office Visit Department of Ophthalmology in [place], [place] [address] [place] [address] Suri Izquierdo M.D. [address] [place] [phone] 2023 12:15 PM CDT Clinical Communication Virtual Review in [place], [place] [address] [place] [address] 12/19/2023 10:00 AM CDT Comprehensive Visit Department of Neurology in [place], [place] [address] [place] [phone] Jojo Barrientos M.D. [address] [place] [phone] 12/27/2023 1:20 PM CDT Appointment Outpatient Procedure Center in [address] [phone] Suri Izquierdo M.D. [address] [place] [phone] Scheduled Referrals Name Type Priority Associated Diagnoses [...] noted. Suri Izquierdo M.D. OPHTH ULTR[place] OPHTHALMOLGY NON-IMAGING ORDERS documented in this encounter Visit Diagnoses Diagnosis Glaucoma Neovascular- Primary Hemorrhage Vitreous Left (HCC) Glaucoma Neovascular Hemorrhage Vitreous Left (HCC) documented in this encounter
--- OUTSIDE RECORDS SUMMARY | 2023-11-23 10:06 | XMS_ITS | Encounter Summary ---
Author Organization [facility] Address [address] [place] [address] Care Team Providers Care Director Of Training Name Role Phone Unavailable Primary Care Provider Unavailabl e Encounter Details Date Type Department Care Team (Latest Contact Info) Description 10/16/2023 Clinical Communication Department of Ophthalmology in [place] [address] [place] [phone] Red Gallego M.D. [address] [place] [address] Social History Tobacco Use Types Packs/Day Years Used Date Smoking Tobacco: Unknown [facility] Utilities Answer Date Recorded In the [...] CDT Ancillary Procedure Department of Ophthalmology in [place], [place] [address] [place] [address] Suri Izquierdo M.D. [address] [place] [phone] 11/30/2023 1:00 PM CDT Ancillary Procedure Department of Ophthalmology in [place], [place] [address] [place] [phone] Suri Izquierdo M.D. [address] [place] [phone] 11/30/2023 1:30 PM CDT Office Visit Department of Ophthalmology in [place], [place] [address] [place] [phone] Suri Izquierdo M.D. [address] [place] [phone] 2023 12:15 PM CDT Clinical Communication Virtual Review in [place], [place] 200 [place] [address] 12/19/2023 10:00 AM CDT Comprehensive Visit Department of Neurology in [place], [place] [address] [place] [phone] Jojo Barrientos M.D. [address] [place] [phone] 12/27/2023 1:20 PM CDT Appointment Outpatient Procedure Center in [address] [phone] Suri Izquierdo M.D. [address] [place] [phone] documented as of this encounter Visit Diagnoses Not on filedocumented in this encounter
--- OUTSIDE RECORDS SUMMARY | 2023-11-23 10:06 | XMS_ITS | Encounter Summary ---
Author Organization [facility] Address [address] [place] [address] Care Team Providers Care Infant Babysitter Name Role Phone Unavailable Primary Care Provider Unavailabl e Reason for Referral * Outpatient (Routine) - Authorized Specialty Diagnoses / Procedures Referred By Contasha t Referred To Contact Diagnoses Ischemia Retina Procedures Intravitreal Injection Gonda Appt Order - OS - Left Eye Rachel Collins M.D., Ph.D. [address] [place] [phone] [facility] Referral ID Status Reason Start Date Expiration Date V isits Requested Visits Authorized [id number] Authorized 09/11/2023 09/10/2024 1 1 Encounter Details Date Type Department Care Team (Late st Contact Info) Description 09/11/2023 Orders Only Department of Ophthalmology in [place], [place] [address] [place] [phone] Anabel Lang C.O.A. [address] [place] [phone] Ischemia Retina (Primary Dx) Social History Tobacco [...] CDT Ancillary Procedure Department of Ophthalmology in [place], [place] 200 [place] [address] Suri Izquierdo M.D. 200 [place] [address] 11/30/2023 1:00 PM CDT Ancillary Procedure Department of Ophthalmology in [place], [place] [address] [place] [address] Suri Izquierdo M.D. [address] [place] [phone] 11/30/2023 1:30 PM CDT Office Visit Department of Ophthalmology in [place], [place] [address] [place] [phone] Suri Izquierdo M.D. [address] [place] [phone] 2023 12:15 PM CDT Clinical Communication Virtual Review in [place], [place] 200 [place] [address] 12/19/2023 10:00 AM CDT Comprehensive Visit Department of Neurology in [place], [place] [address] [place] [phone] Jojo Barrientos M.D. [address] [place] [phone] 12/27/2023 1:20 PM CDT Appointment Outpatient Procedure Center in [address] [phone] Suri Izquierdo M.D. [address] [place] [phone] Scheduled Orders Name Type Priority Associated Diagnoses Orde r Schedule Intravitreal Injection Gonda Appt Order - OS - Left Eye Ophthalmology Routine Ischemia Retina 1 Occurrences starting 09/11/2023 until 12/11/2024 documented as of this encounter Visit Diagnoses Diagnosis Ischemia Retina- Primary documented in this encounter
--- OUTSIDE RECORDS SUMMARY | 2023-11-23 10:06 | XMS_ITS | Encounter Summary ---
Author Organization [facility] Address [address] [place] [address] Care Team Providers Care Coremaker Experimental Name Role Phone Unavailable Primary Care Provider Unavailabl e Encounter Details Date Type Department Care Team (Latest Contact Info) Description 10/18/2023 Clinical Communication Department of Ophthalmology in [place], [place] [address] [place] [address] Provider, Unknown Social History Tobacco Use Types [...] CDT Ancillary Procedure Department of Ophthalmology in [place], [place] [address] [place] [phone] Suri Izquierdo M.D. [address] [place] [phone] 11/30/2023 1:00 PM CDT Ancillary Procedure Department of Ophthalmology in [place], [place] [address] [place] [phone] Suri Izquierdo M.D. [address] [place] [phone] 11/30/2023 1:30 PM CDT Office Visit Department of Ophthalmology in [place], [place] [address] [place] [phone] Suri Izquierdo M.D. [address] [place] [phone] 2023 12:15 PM CDT Clinical Communication Virtual Review in [place], [place] 200 [place] [address] 12/19/2023 10:00 AM CDT Comprehensive Visit Department of Neurology in [place], [place] [address] [place] [address] Jojo Barrientos M.D. [address] [place] [phone] 12/27/2023 1:20 PM CDT Appointment Outpatient Procedure Center in [address] [phone] Suri Izquierdo M.D. [address] [place] [address] documented as of this encounter Visit Diagnoses Not on filedocumented in this encounter
== END 2023-11-23 10:04 | disposition home or self-care (01) ==
PROVIDERS: PCP Family Medicine; Visit Provider Nurse Practitioner Family
DX: I87.311 Chronic venous hypertension (idiopathic) with ulcer of right lower extremity (principal); I89.0 Lymphedema, not elsewhere classified; L97.212 Non-pressure chronic ulcer of right calf with fat layer exposed; Z72.0 Tobacco use
CPT/HCPCS: 11042

== ENCOUNTER 2023-12-06 10:01 | Outpatient (CLI) | payer MEDICARE, BC, SELFPAY ==
--- OUTSIDE RECORDS SUMMARY | 2023-12-06 10:15 | XMS_ITS | Encounter Summary ---
Author Organization [facility] Address [address] [place] [address] Care Team Providers Care Tube Machine Operator Name Role Phone Unavailable Primary Care Provider Unavailabl e Encounter Details Date Type Department Care Team (Late st Contact Info) Description 11/30/2023 12:05 AM CDT Ancillary Procedure Department of Ophthalmology [...] PM CDT Clinical Communication Virtual Review in [place], [place] 200 [place] [address] 12/19/2023 10:00 AM CDT Comprehensive Visit Department of Neurology in [place], [place] [address] [place] [phone] Jojo Barrientos M.D. [address] [place] [phone] 12/27/2023 1:20 PM CDT Appointment Outpatient Procedure Center in [address] [phone] Suri Izquierdo M.D. [address] [place] [phone] documented as of this encounter Procedures Procedure Name Priority Date/Time Associated Diagnosis Comments OPHTHALMOLOGY IMAGE EXAM Routine 11/30/2023 12:05 AM CDT documented in this encounter Results * Eyes US-Eye L-Zzgy-Mfjeyxylrtskc Image Exam (11/30/2023 12:05 AM CDT) Narrative IIMS - 11/30/2023 2:12 PM CDT This order has been created [...]
--- OUTSIDE RECORDS SUMMARY | 2023-12-06 10:15 | XMS_ITS | Encounter Summary ---
Author Organization [facility] Address [address] [place] [address] Care Team Providers Care Senior Credit Analyst Name Role Phone Unavailable Primary Care Provider Unavailabl e Reason for Referral * Outpatient (Routine) - Authorized Specialty Diagnoses / Procedures Referred By Janeth phillips Referred To Contact Diagnoses Glaucoma Neovascular Procedures Intravitreal Injection, Pharmacologic Agent - OS - Left Eye Suri Izquierdo M.D. 200 [place] [address] [facility] Region Referral ID Status Reason Start Date Expiration Date V isits Requested Visits Authorized [id number] Authorized 10/19/2023 10/18/2024 5 5 Reason for Visit * Outpatient (Routine) - Authorized Specialty Diagnoses / Procedures Referred By Janeth phillips Referred To Contact Diagnoses Glaucoma Neovascular Procedures Intravitreal Injection, Pharmacologic Agent - OS - Left Eye Suri Izquierdo M.D. 200 [place] [address] [facility] Region Referral ID Status Reason Start Date Expiration Date V isits Requested Visits Authorized [id number] Authorized 10/19/2023 10/18/2024 5 5 Encounter Details Date Type Department Care Team (Latest Contact Info) Description 11/22/2023 9:02 AM CDT - 11/22/2023 11:59 PM CDT Hospital Encounter Outpatient Procedure Center in [place] [address] [place] [address] Suri Izquierdo M.D. [address] [place] [address] Glaucoma Neovascular Discharge Disposition: Home or Self Care Social History Tobacco Use Types Packs/Day Years Used Date Smoking Tobacco: Unknown [facility] Utilities Answer Date Recorded In the [...] your living situation today? [facility] 07/25/2023 Sex and [...] PM CDT Clinical Communication Virtual Review in [place], [place] 200 [place] [address] 12/19/2023 10:00 AM CDT Comprehensive Visit Department of Neurology in [place], [place] [address] [place] [address] Jojo Barrientos M.D. [address] [place] [address] 12/27/2023 1:20 PM CDT Appointment Outpatient Procedure Center in [address] [phone] Suri Izquierdo M.D. 200 [place] [address] documented as of this encounter Procedures Procedure [...] 25 mg/mL ??Route: intravitreal, Site: Left Eye ??[facility]: 96670-981-65 Balanced salt solution irrigation to injected eye [...] motion or count fingers. Avastin, LEFT eye. [facility] 66287-875-37 LOT [id number] EXP 01/06/2024 First injection in [place]. ??Poor [...] 1.25 mg, intravitreal, One-Time Injection, Starting on Uyn 11/22/23 at 0944, For 1 dose Given 11/22/2023 9:44 AM CDT 1.25 mg Left Eye documented in this encounter
--- OUTSIDE RECORDS SUMMARY | 2023-12-06 10:15 | XMS_ITS | Encounter Summary ---
Author Organization [facility] Address [address] [place] [address] Care Team Providers Care Skiver Machine Name Role Phone Unavailable Primary Care Provider Unavailabl e Reason for Referral * Outpatient (Routine) - Authorized Specialty Diagnoses / Procedures Referred By Janeth phillips Referred To Contact Internal Medicine / General Internal Medicine Diagnoses Retinal Detachment With Single Break Left Eye Suri Izquierdo M.D. 200 [place] [address] [facility] Referral ID Status Reason Start Date Expiration Date V isits Requested Visits Authorized [id number] Authorized 11/30/2023 05/31/2025 1 1 Reason for Visit * Outpatient (Routine) - Closed Specialty Diagnoses / Procedures Referred By Janeth phillips Referred To Contact Ophthalmology Suri Izquierdo M.D. 200 [place] [address] [facility] Referral ID Status Reason Start Date Expiration Date Visits Re quested Visits Authorized [id number] Closed 11/09/2023 05/10/2025 1 1 Encounter Details Date Type Department Care Team (Latest Contact Info) Description 11/30/2023 1:30 PM CDT Office Visit Department of Ophthalmology in [place], [place] [address] [place] [phone] Suri Izquierdo M.D. 200 [place] [address] Hemorrhage Vitreous Left (HCC) (Primary Dx); Retinal Detachment With Single Break Left Eye Social History Tobacco Use Types Packs/Day Years [...] Progress Notes * Suri Izquierdo M.D. - 11/30/2023 1:30 PM CDT CC: This is a follow up visit for Andrew Shields for neovascular glaucoma, left eye. SUBJECTIVE: Still having occasional headaches on the left side above his eye but it does not bother him and is significantly better than prior to therapy invitation. He reports seeing flashes of light in the left eye the day after the last injection (11/21) that look like a kaleidescope. He had a slight headache behind his right eye yesterday but otherwise denies changes in vision. Denies new floaters in the right eye. Current drops: Latanoprost once daily, both eyes Brimonidine TID, left eye Dorzolamide BID, left eye Atropine BID, left eye POH - Cataract surgery BOTH EYES IMAGING: BSCAN 11/30/2023: Left Eye: Moderate to dense vitreous opacities mostly inferiorly, retinal detachment nasally from approximately 130 - 430 with possible break visualized at 430 ASSESSMENT: # Retinal detachment, left eye # Neovascular glaucoma, left eye # Likely vitreous hemorrhage, left eye # Ocular ischemic syndrome, left eye # Left ICA occlusion IMPRESSION: He is status post Avastin injection #2 on 11/22/23 in left eye, and reports that he started seeing kaleidescope lights in the left eye the day after that injection. Retinal detachment visualized on B-scan and exam today in the left eye. The hyphema is stable to perhaps slightly improving, though vitreous hemorrhage has significantly improved and we now have a view to the posterior pole on clinicalexamination. IOP remains well-controlled on the current drop regimen. We do recommend surgery for the retinal detachment even though the visual potential of the left eyeis limited, in order to prevent a blind painful eye. After some consideration, the patient elected he would like to proceed with operative repair. Due to the patient's multiple systemic comorbidities, I have ordered a preoperative evaluation to determine if surgery would be safe. The patient statesthat he can not lay flat on his back if awake, and as such this case would require general anesthesia. The plan would be to perform a pars plana vitrectomy with intraoperative PRP for neovascular glaucoma +/- intravitreal Avastin if surgery occurs at the time he is due for his 3rd injection in the c urrent series. 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 He is also scheduled with neurology here at [place] in December and saw his local sound truck operator earlier this month. PLAN: - Pre-operative evaluation order placed - Plan for pars plana vitrectomy/panretinal photocoagulation for neovascular glaucoma if patient iscleared for surgery within the next 2-3 weeks - Continue Avastin injection q4 weeks x4, plan outlined in Retinal Injection Plan below (next one on 12/27/23) - Continue latanoprost both eyes daily - Continue brimonidine TID, dorzolamide BID, and atropine BID, left eye - Continue monocular precautions - Return in 3 weeks, either for surgery or for clinic visit if surgery is unable to be performed - OCT nerve, visual jacome, and fundus photos as glaucoma screening in RIGHT eye Retinal Injection Plan created on 10/23/2023 Left Eye: Avastin Left eye for Other: neovascular glaucoma 10/23/23 . Follow-up for 3 more injections of Avastin in the left eye every 4 weeks. Followup: 4 - 5 weeks after last injection with OCT macula. Injection Location: [facility] in [place]? Left eye Injection plan staffed with Dr. Herrera on 10/19/23 Patient discussed and seen with Dr. Jara and Dr. Ferris today, 11/30/23. Suri Izquierdo M.D. PGY-2 Ophthalmology Resident documented in this encounter Plan of Treatment Upcoming Encounters Date Type Department Care Team (Latest Contact Info) Description 2023 12:15 PM CDT Clinical Communication Virtual Review in [address] [phone] 12/19/2023 10:00 AM CDT Comprehensive Visit Department of Neurology in [place], [place] [address] [place] [address] Jojo Barrientos M.D. [address] [place] [address] 12/27/2023 1:20 PM CDT Appointment Outpatient Procedure Center in [address] [phone] Suri Izquierdo M.D. 200 [place] [address] Scheduled Referrals Name Type Priority Associated Diagnoses Orde r Schedule General Internal Medicine - JENNIFER consult (clinic) Outpatient Referral Routine Retinal Detachment With Single Break Left Eye Expected: 11/30/2023, Expires: 03/01/2025 documented as of this encounter Visit Diagnoses Diagnosis Hemorrhage Vitreous Left (HCC)- Primary Retinal Detachment With Single Break Left Eye documented in this encounter
--- OUTSIDE RECORDS SUMMARY | 2023-12-06 10:15 | XMS_ITS | Encounter Summary ---
Author Organization [facility] Address [address] [place] [address] Care Team Providers Care Shoes Hand Sewer Name Role Phone Unavailable Primary Care Provider Unavailabl e Reason for Referral * Outpatient (Routine) - Authorized Specialty Diagnoses / Procedures Referred By Janeth phillips Referred To Contact Vascular Medicine Diagnoses Ischemia Retina Occlusion Carotid Artery Left Suri Izquierdo M.D. 200 [place] [address] [facility] Referral ID Status Reason Start Date Expiration Date V isits Requested Visits Authorized [id number] Authorized 11/03/2023 05/04/2025 1 1 * Outpatient (Routine) - Closed Specialty Diagnoses / Procedures Referred By Janeth phillips Referred To Contact Ophthalmology Suri Izquierdo M.D. 200 [place] [address] [facility] Referral ID Status Reason Start Date Expiration Date Visits Re quested Visits Authorized [id number] Closed 11/02/2023 05/03/2025 1 1 Reason for Visit * Reason Comments Occlusion Carotid Artery Lef * Outpatient (Routine) - Closed Specialty Diagnoses / Procedures Referred By Janeth phillips Referred To Contact Ophthalmology Suri Izquierdo M.D. 200 [place] [address] [facility] Referral ID Status Reason Start Date Expiration Date Visits Re quested Visits Authorized [id number] Closed 10/23/2023 04/23/2025 1 1 Encounter Details Date Type Department Care Team (Latest Contact Info) Description 11/02/2023 12:45 PM CDT Office Visit Department of Ophthalmology in [place], [place] [address] [place] [phone] Suri Izquierdo M.D. 200 [place] [phone] Hemorrhage Vitreous Left (HCC) (Primary Dx); Ischemia Retina; Occlusion Carotid Artery Left Social History Tobacco Use Types Packs/Day Years Used Date Smoking Tobacco: Unknown [facility] Utilities Answer Date Recorded In the past 12 months has th e electric, gas, oil, or water [employer] threatened to shut off services in your [...] understanding.He is scheduled with neurology here at [place] in December. The patient plans to schedule an appointment with his vascular physician in the [facility], and I have placed a referral [...] last injection with OCT macula. Injection Location: [facility] injection slot in [place]? Left eye Staffed with Dr. Herrera on 10/19/23 Patient discussed and seen with Dr. Calderon today. Suri Izquierdo M.D. PGY-2 Ophthalmology Resident documented in this encounter Plan of Treatment Upcoming Encounters Date Type Department Care Team (Latest Contact Info) Description 2023 12:15 PM CDT Clinical Communication Virtual Review in [place], [place] 200 [place] [address] 12/19/2023 10:00 AM CDT Comprehensive Visit Department of Neurology in [place], [place] [address] [place] [phone] Jojo Barrientos M.D. [address] [place] [phone] 12/27/2023 1:20 PM CDT Appointment Outpatient Procedure Center in [address] [phone] Suri Izquierdo M.D. [address] [place] [address] Scheduled Referrals Name Type Priority Associated Diagnoses [...]
--- OUTSIDE RECORDS SUMMARY | 2023-12-06 10:15 | XMS_ITS | Encounter Summary ---
Author Organization [facility] Address [address] [place] [address] Care Team Providers Care Tar Distillation Supervisor Name Role Phone Unavailable Primary Care Provider Unavailabl e Encounter Details Date Type Department Care Team (Latest Contact Info) Description 11/30/2023 1:00 PM CDT Ancillary Procedure Department of Ophthalmology in [place], [place] [address] [place] [address] Suri Izquierdo M.D. [address] [place] [address] Hemorrhage Vitreous Left (HCC) Social History Tobacco Use Types Packs/Day Years Used Date Smoking Tobacco: Unknown [facility] Utilities Answer Date Recorded In the past 12 months has [facility] electric, gas, oil, or water company [...] PM CDT Clinical Communication Virtual Review in [place], [place] [address] [place] [address] 12/19/2023 10:00 AM CDT Comprehensive Visit Department of Neurology in [place], [place] [address] [place] [phone] Jojo Barrientos M.D. [address] [place] [phone] 12/27/2023 1:20 PM CDT Appointment Outpatient Procedure Center in [address] [phone] Suri Izquierdo M.D. [address] [place] [phone] documented as of this encounter Procedures Procedure Name Priority Date/Time Associated Diagnosis Comments B SCAN - OS - LEFT EYE Routine 11/30/2023 2:12 PM CDT Hemorrhage Vitreous Left (HCC) documented in this encounter Results * B-Scan Ultrasound - OS - Left Eye (11/30/2023 2:12 PM CDT) Narrative OPHTHALMOLGY NON-IMAGING ORDERS - 12/03/2023 3:25 PM CDT 11/30/2023 B-scan Left Eye: Moderate to dense vitreous opacities mostly inferiorly, likely retinal detachment nasally from approximately 130E - 430E with possible break visualized on L430. Retina appears otherwise attached, no mass noted. [facility] OPH[facility] NON-IMAGING ORDERS documented in this encounter Visit Diagnoses Diagnosis Hemorrhage Vitreous Left (HCC) documented in this encounter
--- OUTSIDE RECORDS SUMMARY | 2023-12-06 10:15 | XMS_ITS | Encounter Summary ---
Author Organization [facility] Address [address] [place] [address] Care Team Providers Care Pump Runner Name Role Phone Unavailable Primary Care Provider Unavailabl e Encounter Details Date Type Department Care Team (Late st Contact Info) Description 10/23/2023 Orders Only Department of Ophthalmology in [place], [place] [address] [place] [phone] Anabel Lang, C.O.A. [address] [place] [address] Glaucoma Neovascular (Primary Dx) Social History Tobacco [...] PM CDT Clinical Communication Virtual Review in [place], [place] [address] [place] [address] 12/19/2023 10:00 AM CDT Comprehensive Visit Department of Neurology in [place], [place] [address] [place] [address] Jojo Barrientos M.D. [address] [place] [phone] 12/27/2023 1:20 PM CDT Appointment Outpatient Procedure Center in [address] [phone] Suri Izquierdo M.D. [address] [place] [phone] documented as of this encounter Visit Diagnoses Diagnosis Glaucoma Neovascular- Primary documented in this encounter
--- OUTSIDE RECORDS SUMMARY | 2023-12-06 10:15 | XMS_ITS ---
Author Organization [facility] Address [address] [place] [address] Care Team Providers Care Paving Block Cutter Name Role Phone Unavailable Unavailable Unavailable Surgery Details Not on file Complications Check Surgery Details section. Procedure Estimated Blood Loss Check Surgery Details section. Procedure Findings Check Surgery Details section. Procedure Specimens Taken Check Surgery Details section.
--- OUTSIDE RECORDS SUMMARY | 2023-12-06 10:15 | XMS_ITS | Encounter Summary ---
Author Organization [facility] Address [address] [place] [phone] Care Team Providers Care Patient Care Associate Name Role Phone Unavailable Primary Care Provider Unavailabl e Reason for Referral * Outpatient (Routine) - Closed Specialty Diagnoses / Procedures Referred By Janeth phillips Referred To Contact Ophthalmology Suri Izquierdo M.D. [address] [place] [phone] [facility] Referral ID Status Reason Start Date Expiration Date Visits Re quested Visits Authorized [id number] Closed 11/09/2023 05/10/2025 1 1 Reason for Visit * Outpatient (Routine) - Closed Specialty Diagnoses / Procedures Referred By Janeth phillips Referred To Contact Ophthalmology Suri Izquierdo M.D. [address] [place] [phone] [facility] Referral ID Status Reason Start Date Expiration Date Visits Re quested Visits Authorized [id number] Closed 11/02/2023 05/03/2025 1 1 Encounter Details Date Type Department Care Team (Latest Contact Info) Description 11/09/2023 12:00 PM CDT Office Visit Department of Ophthalmology in [place], [place] [address] [place] [phone] Suri Izquierdo M.D. 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 PLAN: - Continue Avastin [...] last injection with OCT macula. Injection Location: [place] Hold injection slot in [place]? Left eye Injection plan staffed with Dr. Herrera on 10/19/23 Patient discussed and seen with Dr. Benton today, 11/09/23. Suri Izquierdo M.D. PGY-2 Ophthalmology Resident documented in this encounter Plan of Treatment Upcoming Encounters Date Type Department Care Team (Latest Contact Info) Description 2023 12:15 PM CDT Clinical Communication Virtual Review in [place], [place] 200 [place] [address] 12/19/2023 10:00 AM CDT Comprehensive Visit Department of Neurology in [place], [place] [address] [place] [phone] Jojo Barrientos M.D. [address] [place] [phone] 12/27/2023 1:20 PM CDT Appointment Outpatient Procedure Center in [address] [phone] Suri Izquierdo M.D. [address] [place] [phone] Scheduled Orders Name Type Priority Associated Diagnoses Orde r Schedule Automated VF - Extended - OD - [...] Expires: 02/08/2025 documented as of this encounter Results * B-Scan Ultrasound - OS - Left Eye (11/30/2023 2:12 PM CDT) Narrative OPHTHALMOLGY NON-IMAGING ORDERS - 12/03/2023 3:25 PM CDT 11/30/2023 B-scan Left Eye: Moderate to dense vitreous opacities mostly inferiorly, likely retinal detachment nasally from approximately 130E - 430E with possible break visualized on L430. Retina appears otherwise attached, no mass noted. [facility] OPHTHALMOLGY NON-IMAGING ORDERS documented in this encounter Visit Diagnoses Diagnosis Hemorrhage Vitreous Left (HCC)- Primary Glaucoma Neovascular Occlusion Carotid Artery Left Hemorrhage Vitreous Left (HCC) documented in this encounter
--- OUTSIDE RECORDS SUMMARY | 2023-12-06 10:15 | XMS_ITS | Encounter Summary ---
Author Organization [facility] Address [address] [place] [address] Care Team Providers Care Framer Name Role Phone Unavailable Primary Care Provider Unavailabl e Encounter Details Date Type Department Care Team (Latest Contact Info) Description 10/23/2023 2:54 PM CDT - 10/23/2023 11:59 PM CDT Hospital Encounter Outpatient Procedure Center in [place], [place] [address] [place] [address] Shelia Laughlin M.D. [address] [place] [phone] Discharge Disposition: Home or Self Care Social History Tobacco Use Types Packs/Day Years Used Date Smoking Tobacco: Unknown [facility] Utilities Answer Date Recorded In the past 12 months has [facility] electric, gas, oil, or water [...] CDT Clinical Communication Virtual Review in [place], [place] 200 [place] [address] 12/19/2023 10:00 AM CDT Comprehensive Visit Department of Neurology in [place], [place] [address] [place] [phone] Jojo Barrientos M.D. [address] [place] [phone] 12/27/2023 1:20 PM CDT Appointment Outpatient Procedure Center in [address] [phone] Suri Izquierdo M.D. [address] [place] [phone] documented as of this encounter Procedures Procedure [...] 25 mg/mL ??Route: intravitreal, Site: Left Eye ??[facility]: 49092-907-75 Balanced salt solution irrigation to injected eye [...] and return schedule given if requested. MEHRDAD [id number] Exp 01/06/24 Shelia Moody M.D. [facility] PRO CEDURES documented in this encounter Visit Diagnoses Not on filedocumented in this encounter
--- OUTSIDE RECORDS SUMMARY | 2023-12-06 10:15 | XMS_ITS | Referral Summary ---
Author Organization [facility] Address [address] [place] [address] Care Team Providers Care Refractory Products Supervisor Name Role Phone Unavailable Primary Care Provider Unavailabl e Source Comments Patient records contain information from all sites at [facility]. For routine questions regarding patient records, call [phone] during business hours, M-F 8:00 AM - 5:00 PM Central Time. Record requests for emergency care only can be directed to [phone] at any time.[facility] Encounters Date Type Department Care Team Description 11/30/2023 12:05 AM CDT Ancillary Procedure Department of Ophthalmology 11/30/2023 Ancillary Procedure Department of Ophthalmology 11/30/2023 1:30 PM CDT Office Visit Department of Ophthalmology in [place], [place] [address] [place] [address] Suir Izquierdo M.D. 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 Hemorrhage Vitreous Left (HCC) 11/22/2023 9:02 AM CDT - 11/22/2023 11:59 PM CDT Hospital Encounter Outpatient Procedure Center in [address] [phone] Suri Izquierdo M.D. Glaucoma Neovascular Discharge Disposition: Home or Self Care 11/09/2023 12:00 PM CDT Office Visit Department of Ophthalmology in [place], [place] [address] [place] [phone] Suri Izquierdo M.D. Hemorrhage Vitreous Left (HCC) (Primary Dx); Glaucoma Neovascular; Occlusion Carotid Artery Left 11/02/2023 12:45 PM CDT Office Visit Department of Ophthalmology in [place], [place] [address] [place] [phone] Suri Izquierdo M.D. Hemorrhage Vitreous Left (HCC) (Primary Dx); Ischemia Retina; Occlusion Carotid Artery Left 10/23/2023 2:54 PM CDT - 10/23/2023 11:59 PM CDT Hospital Encounter Outpatient Procedure Center in [place], [place] [address] [place] [phone] Shelia Laughlin M.D. Discharge Disposition: Home or Self Care 10/23/2023 Orders Only Department of Ophthalmology in [address] [phone] Anabel Lang C.O.A. Glaucoma Neovascular (Primary Dx) 10/23/2023 2:20 PM CDT Ancillary Procedure Department of Ophthalmology in [place], [place] [address] [place] [phone] 10/23/2023 1:51 PM CDT - 10/23/2023 2:53 PM CDT Hospital Encounter Outpatient Procedure Center in [place], [place] [address] [place] [phone] Suri Izquierdo M.D. Glaucoma Neovascular Discharge Disposition: Home or Self Care 10/23/2023 12:30 PM CDT Office Visit Department of Ophthalmology in [place], [place] [address] [place] [phone] Suri Izquierdo M.D. Occlusion Carotid Artery Left (Primary Dx); Ischemia Retina; Glaucoma Neovascular; Neuropathy Optic Ischemic Bilateral 10/19/2023 Orders Only Department of Ophthalmology in [place], [place] [address] [place] [phone] Juan David Cabrales M.D. Glaucoma Neovascular (Primary Dx); Hemorrhage Vitreous Left (HCC) 10/19/2023 Clinical Communication Department of Ophthalmology in [place], [place] [address] [place] [address] Suri Izquierdo M.D. 10/19/2023 Ancillary Procedure Department of Ophthalmology 10/19/2023 2:00 PM CDT Ancillary Procedure Department of Ophthalmology in [place], [place] [address] [place] [phone] Suri Izquierdo M.D. Glaucoma Neovascular; Hemorrhage Vitreous Left (HCC) 10/19/2023 10:30 AM CDT Comprehensive Visit Department of Ophthalmology in [place], [place] [address] [place] [phone] Suri Izquierdo M.D. Glaucoma Neovascular (Primary Dx); Hemorrhage Vitreous Left (HCC) 10/18/2023 Clinical Communication Department of Ophthalmology in [place], [place] [address] [place] [phone] Provider, Unknown 10/16/2023 Clinical Communication Department of Ophthalmology in [place], [place] [address] [place] [phone] Red Gallego M.D. 09/11/2023 Orders Only Department of Ophthalmology in [place], [place] [address] [place] [phone] Anabel Lang, Mirta.OKatianaA. Ischemia Retina (Primary Dx) 09/11/2023 Clinical Communication Department of Ophthalmology in [place], [place] [address] [place] [phone] Rachel Collins M.D., Ph.D. from Last 3 [...] at bedtime. 5 mL 3 11/02/2023 Active Hospital, Clinic, or Other Facility Administered [...] Recorded In the past 12 months has [employer], gas, oil, or water [employer] threatened to shut off services in your [...] your living situation today? I have a [facility] place to live 07/25/2023 Sex and [...] PM CDT Clinical Communication Virtual Review in [place], [place] [address] [place] [address] 12/19/2023 10:00 AM CDT Comprehensive Visit Department of Neurology in [place], [place] [address] [place] [address] Jojo Barrientos M.D. 200 [place] [phone] 12/27/2023 1:20 PM CDT Appointment Outpatient Procedure Center in [address] [phone] Suri Izquierdo M.D. 200 [place] [phone] Medical Devices Implanted Type Area Director Of Security Device Identifier Shelf Expiration Date Model / Serial / Lot J J Sig Patella Oval 41 - Briones [id number] Implanted:Qty: 1 on 10/23/2011 Knee Implant Other/Legacy - See Implant Description [employer] Description:Device Manufactu rer - [employer]. Body Location - Other. Left. Device Status Text - [id number] [id number]. Depuy-Insert Stabilized Sz 5 12.5mm - Briones [id number] Implanted:Qty: 1 on 10/23/2011 Knee Implant Other/Legacy - See Implant Description [employer] Description:Device Manufactu rer - [employer]. Body Location - Other. Left. Device Status Text - [id number] [id number]. Depuy-Tib Tray Mod Cement Cocr Sz5 - Briones [id number] Implanted:Qty: 1 on 10/23/2011 Knee Implant Other/Legacy - See Implant Description [employer] Description:Device Manufactu rer - [employer]. Body Location - Other. Left. Device Status Text - [id number] [id number]. Sigma Post Stab.W Lug Fem Sz 6 Lt - Briones [id number] Implanted:Qty: 1 on 10/23/2011 Knee Implant Other/Legacy - See Implant Description [employer] Description:Device Manufactu rer - [employer]. Body Location - Other. Left. Device Status Text - [id number] [id number]. Cement Bone Large - Briones [id number] Implanted:Qty: 2 on 10/23/2011 Misc Other [place] Description:Device Manufactu rer - [employer].. Device Status Text - [id number]. Procedures Procedure Name Priority Date/Time Associated Diagnosis Comments B SCAN - OS - LEFT EYE Routine 4 2:12 PM CDT Hemorrhage Vitreous Left (HCC) OPHTHALMOLOGY IMAGE EXAM Routine 11/30/2023 12:05 AM CDT OPHTHALMOLOGY IMAGE EXAM Routine 11/30/2023 12:00 AM CDT INTRAVITREAL INJECTION, PHARMACOLOGIC AGENT - OS - [...] Recently Relevant to Health Maintenance Results * B-Scan Ultrasound - OS - Left Eye (11/30/2023 2:12 PM CDT) Narrative OPHTHALMOLGY NON-IMAGING ORDERS - 12/03/2023 3:25 PM CDT 11/30/2023 B-scan Left Eye: Moderate to dense vitreous opacities mostly inferiorly, likely retinal detachment nasally from approximately 130E - 430E with possible break visualized on L430. Retina appears otherwise attached, no mass noted. BRET Suri Izquierdo M.D. OPHTH ULTRAS ND OPHTHALMOLGY NON-IMAGING ORDERS * Eyes US-Eye [id number] Image Exam (11/30/2023 12:05 AM CDT) Only the most recent of3 resultswithin the time period is included. Narrative II - 11/30/2023 2:12 PM CDT This order has been created and auto-finalized to support the import of images acquired without order. The clinical documentation to support these images can be found on the encounter that produced images. Provider Not In System IMG NON RAD IMAGI NG PROCEDURES IINJ NA * Intravitreal Injection, Pharmacologic Agent - OS [...] 25 mg/mL ??Route: intravitreal, Site: Left Eye ??[facility]: 59183-438-93 Balanced salt solution irrigation to injected eye [...] motion or count fingers. Avastin, LEFT eye. [facility] 78538-260-00 LOT [id number] EXP 01/06/2024 First injection in [place]. ??Poor [...] 25 mg/mL ??Route: intravitreal, Site: Left Eye ??[facility]: 14542-729-40 Balanced salt solution irrigation to injected eye [...] discussed and return schedule given if requested. [id number] Exp 01/06/24 Shelia Moody M.D. [facility] PRO CEDURES * B-Scan Ultrasound - OS - Left Eye (10/19/2023 3:27 PM CDT) Narrative [facility] NON-IMAGING ORDERS - 10/19/2023 8:17 PM CDT Quality was good. Notes 10/19/2023 B-scan Left Eye: Moderate to dense vitreous opacities layered inferiorly and possible traction near 430PE. Retina appears grossly attached, no mass noted. Suri Izquierdo M.D. [facility] ULTRASOU [place] Performing Organization Address City/[facility]/ZIP Co de Phone Number [facility] NON-IMAGING ORDERS * Creatinine with Estimated GFR (07/30/2023 8:13 AM CDT) Creatinine 1.15 0.74 - 1.35 mg/dL 07/30/2023 9:14 AM CDT DTL Estimated GFR (eGFR) 66 >=60 mL/min/BSA 07/30/2023 9:14 AM CDT DTL Comment: Estimated GFR calculated using the 2020 CKD_EPI creatinine equation. Blood (Blood, Venous) 07/30/2023 8:13 AM CDT 07/30/2023 8:52 AM CDT Red Gallego M.D. LAB BLOOD ADD-ON [facility] [address] [place] [address], [facility] [address] [place] [address] * (ABNORMAL) Electrolyte Panel with Creatinine Dimple (10/26/2011 4:13 AM CDT) BUN (Blood Urea Nitrogen), S 8 8 - 24 MG/DL [facility] Sodium, P 135 135 - 145 MMOL/L [facility] HX Bicarbonate, P/S 32(H) 22 - 29 MMOL/L [facility] Potassium, P 4.5 3.6 - 5.2 MMOL/L [facility] Chloride, S 98(L) 100 - 108 MMOL/L [facility] Creatinine, Dimple 0.8(L) 0.9 - 1.4 MG/DL [facility] Glucose, S 117 70 - 140 MG/DL [facility] 10/26/2011 4:13 AM CDT 10/26/2011 4:13 AM CDT Allison Redmond P.A.-C., P.A. LAB BLOOD A DD-ON [facility] [address] [place] [address], [facility] from Last 3 Months or Most Recently Relevant to Health Maintenance
--- OUTSIDE RECORDS SUMMARY | 2023-12-06 10:15 | XMS_ITS | Encounter Summary ---
Author Organization [facility] Address [address] [place] [address] Care Team Providers Care Publishing Manager Name Role Phone Unavailable Primary Care Provider Unavailabl e Encounter Details Date Type Department Care Team (Late st Contact Info) Description 11/30/2023 Ancillary Procedure Department of Ophthalmology Social History Tobacco Use Types Packs/Day Years Used Date Smoking Tobacco: Unknown [facility] Utilities Answer Date Recorded In the past 12 months has th e electric, gas, oil, or water [employer] threatened to shut off services in your [...] your living situation today? I have a [facility] place to live 07/25/2023 Sex and Gender Information Value Date Recorded Sex Assigned at Male 07/25/2023 8:23 PM CDT Gender Identity Male 07/25/2023 8:23 PM CDT Sexual Orientation Straight 07/25/2023 8: 23 PM CDT documented as of this encounter Plan of Treatment Upcoming Encounters Date Type Department Care Team (Latest Contact Info) Description 2023 12:15 PM CDT Clinical Communication Virtual Review in [place], [place] [address] [place] [address] 12/19/2023 10:00 AM CDT Comprehensive Visit Department of Neurology in [place], [place] [address] [place] [phone] Jojo Barrientos M.D. [address] [place] [phone] 12/27/2023 1:20 PM CDT Appointment Outpatient Procedure Center in [address] [phone] Suri Izquierdo M.D. [address] [place] [phone] documented as of this encounter Procedures Procedure Name Priority Date/Time Associated Diagnosis Comments OPHTHALMOLOGY IMAGE EXAM Routine 11/30/2023 12:00 AM CDT documented in this encounter Results * Video-Eyes US-Eye [id number] Image Exam (11/30/2023 12:00 AM CDT) Narrative IIMS - 11/30/2023 2:12 [...]
--- OUTSIDE RECORDS SUMMARY | 2023-12-06 10:15 | XMS_ITS | Clinical Summary ---
Author Organization [facility] Address [address] [place] [address] Care Team Providers Care Head Of Sales Promotion Name Role Phone Unavailable Primary Care Provider Unavailabl e Source Comments Patient records contain information from all sites at [facility]. For routine questions regarding patient records, call [phone] during business hours, M-F 8:00 AM - 5:00 PM Central Time. Record requests for emergency care only can be directed to [phone] at any time.[facility] Allergies Active Allergy Reactions Criticality [...] Date Type Department Care Team Description 11/30/2023 1:30 PM CDT Office Visit Department of Ophthalmology in [place], [place] [address] [place] [address] Suri Izquierdo M.D. Hemorrhage Vitreous Left (HCC) (Primary Dx); Retinal Detachment With Single Break Left Eye 11/30/2023 1:00 PM CDT Ancillary Procedure Department of Ophthalmology in [place], [place] [address] [place] [address] Suri Izquierdo M.D. Hemorrhage Vitreous Left (HCC) 11/30/2023 12:05 AM CDT Ancillary Procedure Department of Ophthalmology 11/30/2023 Ancillary Procedure Department of Ophthalmology 11/22/2023 9:02 AM CDT - 11/22/2023 11:59 PM CDT Hospital Encounter Outpatient Procedure Center in [address] [phone] Suri Izquierdo M.D. Glaucoma Neovascular Discharge Disposition: Home or Self Care 11/09/2023 12:00 PM CDT Office Visit Department of Ophthalmology in [place], [place] [address] [place] [phone] Suri Izquierdo M.D. Hemorrhage Vitreous Left (HCC) (Primary Dx); Glaucoma Neovascular; Occlusion Carotid Artery Left 11/02/2023 12:45 PM CDT Office Visit Department of Ophthalmology in [place], [place] [address] [place] [address] Suri Izquierdo M.D. Hemorrhage Vitreous Left (HCC) (Primary Dx); Ischemia Retina; Occlusion Carotid Artery Left 10/23/2023 2:54 PM CDT - 10/23/2023 11:59 PM CDT Hospital Encounter Outpatient Procedure Center in [place], [place] [address] [place] [address] Shelia Laughlin M.D. Discharge Disposition: Home or Self Care 10/23/2023 2:20 PM CDT Ancillary Procedure Department of Ophthalmology in [place], [place] [address] [place] [phone] 10/23/2023 1:51 PM CDT - 10/23/2023 2:53 PM CDT Hospital Encounter Outpatient Procedure Center in [place], [place] [address] [place] [phone] Suri Izquierdo M.D. Glaucoma Neovascular Discharge Disposition: Home or Self Care 10/23/2023 12:30 PM CDT Office Visit Department of Ophthalmology in [place], [place] [address] [place] [address] Suri Izquierdo M.D. Occlusion Carotid Artery Left (Primary Dx); Ischemia Retina; Glaucoma Neovascular; Neuropathy Optic Ischemic Bilateral 10/23/2023 Orders Only Department of Ophthalmology in [place], [place] [address] [place] [phone] Anabel Lang C.O.A. Glaucoma Neovascular (Primary Dx) 10/19/2023 2:00 PM CDT Ancillary Procedure Department of Ophthalmology in [place], [place] [address] [place] [address] Suri Izquierdo M.D. Glaucoma Neovascular; Hemorrhage Vitreous Left (HCC) 10/19/2023 10:30 AM CDT Comprehensive Visit Department of Ophthalmology in [place], [place] [address] [place] [phone] Suri Izquierdo M.D. Glaucoma Neovascular (Primary Dx); Hemorrhage Vitreous Left (HCC) 10/19/2023 Orders Only Department of Ophthalmology in [place], [place] [address] [place] [address] Juan David Cabrales M.D. Glaucoma Neovascular (Primary Dx); Hemorrhage Vitreous Left (HCC) 10/19/2023 Clinical Communication Department of Ophthalmology in [place], [place] [address] [place] [address] Suri Izquierdo M.D. 10/19/2023 Ancillary Procedure Department of Ophthalmology 10/18/2023 Clinical Communication Department of Ophthalmology in [place], [place] [address] [place] [address] Provider, Unknown 10/16/2023 Clinical Communication Department of Ophthalmology in [place], [place] [address] [place] [phone] Red Gallego M.D. 09/11/2023 Orders Only Department of Ophthalmology in [place], [place] [address] [place] [phone] Anabel Lang C.O.A. Ischemia Retina (Primary Dx) 09/11/2023 Clinical Communication Department of Ophthalmology in [place], [place] [address] [place] [address] Rachel Collins M.D., Ph.D. from Last 3 Months Social History Tobacco Use Types Packs/Day Years Used Date Smoking Tobacco: Unknown [facility] Utilities Answer Date Recorded In the past 12 months has [employer] electric, gas, oil, or water company threatened [...] PM CDT Clinical Communication Virtual Review in [place], [place] [address] [place] [address] 12/19/2023 10:00 AM CDT Comprehensive Visit Department of Neurology in [place], [place] [address] [place] [address] Jojo Barrientos M.D. 200 [place] [address] 12/27/2023 1:20 PM CDT Appointment Outpatient Procedure Center in [address] [phone] Suri Izquierdo M.D. 200 [place] [address] Health Maintenance Due Date Last Done Comments Hepatitis C Screening 1945 Zoster Vaccines (1 of 2) 12/15/1995 DTaP,Tdap,and Td Vaccines (3 - Td or Tdap) 03/16/2018 03/16/2008, 07/04/2006 Depression Screening (Annual PHQ-2) 04/09/2023 COVID-19 Vaccine (7 2022-2 4 season) [...] Completed 11/22/2023 Medical Devices Implanted Type Area Lead Customer Service Representative Device Identifier Shelf Expiration Date Model / Serial / Lot J J Sig Patella Oval 41 - Briones [id number] Implanted:Qty: 1 on 10/23/2011 Knee Implant Other/Legacy - See Implant Description [employer] Description:Device Manufactu rer - [employer]. Body Location - Other. Left. Device Status Text - [id number] [id number]. Depuy-Insert Stabilized Sz 5 12.5mm - Briones [id number] Implanted:Qty: 1 on 10/23/2011 Knee Implant Other/Legacy - See Implant Description [employer] Description:Device Manufactu rer - [employer]. Body Location - Other. Left. Device Status Text - [id number] [id number]. Depuy-Tib Tray Mod Cement Cocr Sz5 - Briones [id number] Implanted:Qty: 1 on 10/23/2011 Knee Implant Other/Legacy - See Implant Description [employer] Description:Device Manufactu rer - [employer]. Body Location - Other. Left. Device Status Text - KNEE [id number]. Sigma Post Stab.W Lug Fem Sz 6 Lt - Briones [id number] Implanted:Qty: 1 on 10/23/2011 Knee Implant Other/Legacy - See Implant Description [employer] Description:Device Manufactu rer - [employer]. Body Location - Other. Left. Device Status Text - KNEE [id number]. Cement Bone Large - Briones [id number] Implanted:Qty: 2 on 10/23/2011 Misc Other Beverly Description:Device Manufactu rer - Beverly Amar[employer].. Device Status Text - [id number]. Procedures Procedure Name Priority Date/Time Associated Diagnosis Comments B SCAN - OS - LEFT EYE Routine 2:12 PM CDT Hemorrhage Vitreous Left (HCC) [...] otherwise attached, no mass noted. JH Suri Izquierdo M.D. OPHTH ULTRASOU [place] Performing Organization Address City/[facility]/ZIP Co de Phone Number OPHTHALMOLGY NON-IMAGING ORDERS * Eyes US-Eye [id number] Image Exam (11/30/2023 12:05 AM CDT) Only the most recent of3 resultswithin the time period is included. Narrative IIMS - 11/30/2023 2:12 PM CDT This order has been created and auto-finalized to support the import of images acquired without order. The clinical documentation to support these images can be found on the encounter that produced images. Provider Not In System IMG NON RAD IMAGI NG PROCEDURES Performing Organization Address City/[facility]/ZIP Co de Phone Number IIMS NA * Intravitreal Injection, Pharmacologic Agent - [...] Left Eye ??[facility]: 77077-676-50 Balanced salt solution irrigation to injected eye [...] motion or count fingers. Avastin, LEFT eye. [facility] 20011-472-99 LOT [id number] EXP 01/06/2024 First injection in CF. ??Poor visual potential. ??Neovascular glaucoma and high intraocular pressure. ??Would consider cyclophotocoagulation as patient is having daily headaches likely related to uncontrolled intraocular pressure on maximal medical treatment. ?? No injection complications. Nicholas Carlos MD Suri Izquierdo M.D. OPH CLINIC P ROCEDURES * Intravitreal Injection, Pharmacologic Agent - OS - Left Eye (10/23/2023 2:54 PM CDT) Shelia Finney M.D. - 10/23/2023 3:22 PM CDT Pre-Procedure [...] Left Eye ??[facility]: 37747-288-95 Balanced salt solution irrigation to injected eye [...] and return schedule given if requested. MEHRDAD [id number] Exp 01/06/24 Shelia Moody M.D. [facility] PRO CEDURES * B-Scan Ultrasound - OS - Left Eye (10/19/2023 3:27 PM CDT) Narrative OPHTHALMOLGY NON-IMAGING ORDERS - 10/19/2023 8:17 PM CDT Quality was good. Notes 10/19/2023 B-scan Left Eye: Moderate to dense vitreous opacities layered inferiorly and possible traction near 430PE. Retina appears grossly attached, no mass noted. Suri Izquierdo M.D. [facility] [place] OPHTHALMOLGY NON-IMAGING ORDERS * Creatinine with Estimated GFR (07/30/2023 8:13 AM CDT) Creatinine 1.15 0.74 - 1.35 mg/dL 07/30/2023 9:14 AM CDT DTL Estimated GFR (eGFR) 66 >=60 mL/min/BSA 07/30/2023 9:14 AM CDT DTL Comment: Estimated GFR calculated using the 2020 CKD_EPI creatinine equation. Blood (Blood, Venous) 07/30/2023 8:13 AM CDT 07/30/2023 8:52 AM CDT Red Gallego M.D. LAB BLOOD ADD-ON Performing Organization Address City/[facility]/ZIP Co de Phone Number [facility] [address] [facility] [address] [place] [address] * (ABNORMAL) Electrolyte Panel with Creatinine Dimple (10/26/2011 4:13 AM CDT) BUN (Blood Urea Nitrogen), S 8 8 - 24 MG/DL [facility] Sodium, P 135 135 - 145 MMOL/L [facility] HX Bicarbonate, P/S 32(H) 22 - 29 MMOL/L [facility] Potassium, P 4.5 3.6 - 5.2 MMOL/L [facility] Chloride, S 98(L) 100 - 108 MMOL/L [facility] Creatinine, Dimple 0.8(L) 0.9 - 1.4 MG/DL [facility] Glucose, S 117 70 - 140 MG/DL [facility] 10/26/2011 4:13 AM CDT 10/26/2011 4:13 AM CDT Allison Redmond P.A.-C., P.A. LAB BLOOD A DD-ON Performing Organization Address City/[facility]/ZIP Co de Phone Number [facility] [address] from Last 3 Months or Most Recently Relevant to Health Maintenance
--- OUTSIDE RECORDS SUMMARY | 2023-12-06 10:16 | XMS_ITS | Encounter Summary ---
Author Organization [facility] Address [address] [place] [address] Care Team Providers Care Conveyor Tender Name Role Phone Unavailable Primary Care Provider Unavailabl e Encounter Details Date Type Department Care Team (Latest Contact Info) Description 09/11/2023 Clinical Communication Department of Ophthalmology in [place], [place] [address] [place] [address] Rachel Collins M.D., Ph.D. [address] [place] [address] Social History Tobacco Use Types Packs/Day Years [...] PM CDT Clinical Communication Virtual Review in [place], [place] [address] [place] [address] 12/19/2023 10:00 AM CDT Comprehensive Visit Department of Neurology in [place], [place] [address] [place] [phone] Jojo Barrientos M.D. [address] [place] [phone] 12/27/2023 1:20 PM CDT Appointment Outpatient Procedure Center in [address] [phone] Suri Izquierdo M.D. [address] [place] [phone] documented as of this encounter Visit Diagnoses Not on filedocumented in this encounter
--- OUTSIDE RECORDS SUMMARY | 2023-12-06 10:16 | XMS_ITS | Encounter Summary ---
Author Organization [facility] Address [address] [place] [address] Care Team Providers Care Business Operations Analyst [...] th e electric, gas, oil, or water [employer] threatened to shut off services in your [...] living situation today? I have a [facility] place to live 07/25/2023 Sex and Gender Information Value Date Recorded Sex Assigned at Male 07/25/2023 8:23 PM CDT Gender Identity Male 07/25/2023 8:23 PM CDT Sexual Orientation Straight 07/25/2023 8: 23 PM CDT documented as of this encounter Plan of Treatment Upcoming Encounters Date Type Department Care Team (Latest Contact Info) Description 2023 12:15 PM CDT Clinical Communication Virtual Review in [place], [place] [address] [place] [address] 12/19/2023 10:00 AM CDT Comprehensive Visit Department of Neurology in [place], [place] [address] [place] [phone] Jojo Barrientos M.D. [address] [place] [phone] 12/27/2023 1:20 PM CDT Appointment Outpatient Procedure Center in [address] [phone] Suri Izquierdo M.D. [address] [place] [phone] documented as of this encounter Procedures Procedure Name Priority Date/Time Associated Diagnosis Comments OPHTHALMOLOGY IMAGE EXAM Routine 10/19/2023 12:00 AM CDT documented in this encounter Results * Eyes US-Eye [id number] Image Exam (10/19/2023 12:00 AM CDT) Narrative [...]
--- OUTSIDE RECORDS SUMMARY | 2023-12-06 10:16 | XMS_ITS | Encounter Summary ---
Author Organization [facility] Address [address] [place] [address] Care Team Providers Care Agricultural Extension Specialist Name Role Phone Unavailable Primary Care Provider Unavailabl e Encounter Details Date Type Department Care Team (Late st Contact Info) Description 10/23/2023 2:20 PM CDT Ancillary Procedure Department of Ophthalmology in [place], [place] [address] [place] [address] Social History Tobacco Use Types Packs/Day Years Used Date Smoking Tobacco: Unknown [facility] Utilities Answer Date Recorded In the [...] your living situation today? I have a [facility] place to live 07/25/2023 Sex [...] PM CDT Clinical Communication Virtual Review in [place], [place] [address] [place] [address] 12/19/2023 10:00 AM CDT Comprehensive Visit Department of Neurology in [place], [place] [address] [place] [address] Jojo Barrientos M.D. [address] [place] [phone] 12/27/2023 1:20 PM CDT Appointment Outpatient Procedure Center in [address] [phone] Suri Izquierdo M.D. [address] [place] [phone] documented as of this encounter Visit Diagnoses Not on filedocumented in this encounter
--- OUTSIDE RECORDS SUMMARY | 2023-12-06 10:16 | XMS_ITS | Encounter Summary ---
Author Organization [facility] Address [address] [place] [address] Care Team Providers Care Spooling Machine Operator Name Role Phone Unavailable Primary Care Provider Unavailabl e Encounter Details Date Type Department Care Team (Late st Contact Info) Description 08/01/2023 Clinical Communication Division of clinical rehabilitation aide in [place], [place] [address] [place] [address] Prescheduling, Provider Social History Tobacco Use Types Packs/Day Years Used Date Smoking Tobacco: Unknown [facility] Utilities Answer Date Recorded In the [...] living situation today? I have a [facility] place to live 07/25/2023 Sex and Gender Information Value Date Recorded Sex Assigned at Male 07/25/2023 8:23 PM CDT Gender Identity Male 07/25/2023 8:23 PM CDT Sexual Orientation Straight 07/25/2023 8: 23 PM CDT documented as of this encounter Plan of Treatment Upcoming Encounters Date Type Department Care Team (Latest Contact Info) Description 2023 12:15 PM CDT Clinical Communication Virtual Review in [place], [place] [address] [place] [address] 12/19/2023 10:00 AM CDT Comprehensive Visit Department of Neurology in [place], [place] [address] [place] [phone] Jojo Barrientos M.D. [address] [place] [phone] 12/27/2023 1:20 PM CDT Appointment Outpatient Procedure Center in [address] [phone] Suri Izquierdo M.D. [address] [place] [phone] documented as of this encounter Visit Diagnoses Not on filedocumented in this encounter
--- OUTSIDE RECORDS SUMMARY | 2023-12-06 10:16 | XMS_ITS | Encounter Summary ---
Author Organization [facility] Address [address] [place] [address] Care Team Providers Care Greenskeeper Head Name Role Phone Unavailable Primary Care Provider Unavailabl e Encounter Details Date Type Department Care Team (Latest Contact Info) Description 10/19/2023 2:00 PM CDT Ancillary Procedure Department of Ophthalmology in [place], [place] [address] [place] [address] Suri Izquierdo M.D. [address] [place] [address] Glaucoma Neovascular; Hemorrhage Vitreous Left (HCC) Social History Tobacco Use Types Packs/Day Years Used Date Smoking Tobacco: Unknown [facility] Utilities Answer Date Recorded In the past 12 months has [facility] electric, gas, oil, or water company [...] your living situation today? I have a [facility] place to live 07/25/2023 Sex and Gender Information Value Date Recorded Sex Assigned at Male 07/25/2023 8:23 PM CDT Gender Identity Male 07/25/2023 8:23 PM CDT Sexual Orientation Straight 07/25/2023 8: 23 PM CDT documented as of this encounter Plan of Treatment Upcoming Encounters Date Type Department Care Team (Latest Contact Info) Description 2023 12:15 PM CDT Clinical Communication Virtual Review in [place], [place] 200 [place] [address] 12/19/2023 10:00 AM CDT Comprehensive Visit Department of Neurology in [place], [place] [address] [place] [phone] Jojo Barrientos M.D. [address] [place] [phone] 12/27/2023 1:20 PM CDT Appointment Outpatient Procedure Center in [address] [phone] Suri Izquierdo M.D. [address] [place] [phone] documented as of this encounter Procedures Procedure [...] no mass noted. Suri Izquierdo M.D. OPHTH [facility] OPHTHALMOLGY NON-IMAGING ORDERS documented in this encounter Visit Diagnoses Diagnosis Glaucoma Neovascular Hemorrhage Vitreous Left (HCC) documented in this encounter
--- OUTSIDE RECORDS SUMMARY | 2023-12-06 10:16 | XMS_ITS | Encounter Summary ---
Author Organization [facility] Address [address] [place] [address] Care Team Providers Care Curriculum Specialist Name Role Phone Unavailable Primary Care Provider Unavailabl e Reason for Visit * Reason Onset Date Comments Appt Request 07/30/2023 Encounter Details Date Type Department Care Team (Latest Contact Info) Description 07/30/2023 Clinical Communication Department of Ophthalmology in [place], [place] [address] [place] [address] Provider, Unknown Appt Request Social History Tobacco [...] your living situation today? I have a [facility] place to live 07/25/2023 [...] PM CDT Clinical Communication Virtual Review in [place], [place] [address] [place] [address] 12/19/2023 10:00 AM CDT Comprehensive Visit Department of Neurology in [place], [place] [address] [place] [phone] Jojo Barrientos M.D. [address] [place] [phone] 12/27/2023 1:20 PM CDT Appointment Outpatient Procedure Center in [address] [phone] Suri Izquierdo M.D. [address] [place] [phone] documented as of this encounter Visit Diagnoses Not on filedocumented in this encounter
--- OUTSIDE RECORDS SUMMARY | 2023-12-06 10:16 | XMS_ITS | Clinical Summary ---
Author Organization [email or web address] [facility] Address [place], [place] [address] Care Team Providers Care Fill Manager Name Role Phone Marcio Gonzalez MD Primary Care Provider [phone] Allergies Active Allergy Reactions Criticality Noted Date [...] DAILY. 180 Tablet 11/14/19 24 Active fluticasone eid-rnhjfykowoev-y ilanterol (Trelegy Ellipta) 100-62.5-25 mcg inhalerIndications :Panlobular [...] 024 Discontinued(Re order (E-cancel not sent)) fluticasone sdz-wpgaelkurhox-r ilanterol (Trelegy Ellipta) 100-62.5-25 mcg inhalerIndications :Panlobular [...] stroke clinic today. He had presented to [facility] on 11/09/2018 with difficulty finding words [...] Word Finding Difficulties Recommended follow up at [facility] Stroke Clinic. Speech therapy, OT, and [...] Encounters Date Type Department Care Team Description 12/04/2023 3:30 PM CDT Office Visit [facility] [id number] [place] [address] Ricarda Bautista MD Follow Up (F/U visit/OV,FU CT on chart from [place] no new imaging/PT states feeling alright/Losing sight in eye - might be blockage of artery /Stated all medications are up to date) 12/04/2023 Travel 11/22/2023 Telephone [facility] [address] [place] [address] Ricarda Bautista MD Appointment Request 11/13/2023 10:00 AM CDT Office Visit [facility] [address] [place] [place] [phone] Radha Carlin MBBS CV General Cardiology Est (IN PERSON - 4MO ROUTINE CHECK//PCP:Marcio Gonzalez MD/) 11/13/2023 Travel 11/12/[address] [facility] [address] [place] [address] Dorian Draper MD Refill Request (Mirtazapine 7.5mg tablet) 11/12/2023 Telephone [facility] [address] [place] [address] Ricarda Bautista MD Appointment Request 11/12/[address] [facility] [address] [place] [address] Marcio Gonzalez MD Refill Request (Klor-con M20, Atorvastatin, Furosemide, Trelegy Ellipta, Tramadol) 10/22/[address] [facility] [address] [place] [address] Dorian Draper MD Refill Request (Mirtazapine 7.5mg) 10/21/[address] [facility] [address] [place] [address] Marcio Gonzalez MD Refill Request (Tramadol) 09/20/[address] [facility] [address] [place] [address] Marcio Gonzalez MD Refill Request (Tramadol) 09/18/2023 Telephone [facility] [address] [facility] [address] [place] [address] Dave Maya MD Medication Management (eliquis) from Last 3 Months Immunizations Name Administration Dates Next Due COVID-19 Vaccine Spikevax (M oderna 50mcg/0.5mL) 12YO+ 7322-1620 Formula PF 01/17/2023 COVID-19 vaccine ([employer] 30mcg/0.3mL) P FMDV 06/22/2020,06/01/2020 Influenza, High-dose Inactivated [...] Sign Reading Time Taken Comments Blood Pressure 126/69 12/04/2023 3:35 PM CDT Pulse 83 12/04/2023 3:35 PM CDT Temperature 37 ??C (98.6 ??F) 07/27/2023 10:38 AM CDT Respiratory Rate 18 05/02/2023 10:57 AM SQUAD LEADER Oxygen Saturation 96% 12/04/2023 3:35 PM CDT Inhaled Oxygen Concentration - - Weight 132 kg (290 lb 14.4 oz) 12/04/2023 3:35 P M CDT Height 185.4 cm (6' 1) 12/04/2023 3:35 PM CDT Body Mass Index 38.38 12/04/2023 3:35 PM CDT Plan of Treatment Upcoming Encounters Date Type Department Care Team (Late st Contact Info) Description 01/01/2024 10:00 AM CDT Office Visit [facility] [address] [place] [address] Marcio Gonzalez MD [address] [place] [address] Health Maintenance Due Date Last Done Comments [...] wt on same day) for age 18+ 12/03/2024 12/04/2023, 05/22/2023, 02/27/2023, Additional history exists Tdap Completed 03/16/2008, 07/04/2006 Pneumococcal series for age 65+ Completed 05/19/2015, 06/05/2013, 03/14/2000 Hepatitis C screening for ag e 18-79 Completed 02/08/2022 Medical Devices Implanted Type Area Roll Tube Setter Device Identifier Shelf Expiration Date Model / Serial / Lot Tissue Pericardium 0.8x8cm [employer]ovine - [id number] Implanted:Qty: 1 on 02/13/2022 by Kael Hernandez MD at Cv Implants Right: Groin [employer] 02/27/2022 PFP 0.8X8 / / [id number] Stent Aaa [id number] Excluder Ibc - [id number] Implanted:Qty: 1 on 02/13/2022 by Kael Hernandez MD at Right: Iliac Artery [employer] 2024 [id number] / [id number] / Stent Aaa [id number] Excluder Iic - [id number] Implanted:Qty: 1 on 02/13/2022 by Kael Hernandez MD at Right: Iliac Artery [employer] 04/20/2024 [id number] / [id number] / Procedures Procedure Name Priority Date/Time Associated [...] QT 408 ms QTc 417 ms P Ayden 76 degrees R Ayden 46 degrees T Ayden 50 degrees 11/13/2023 10:4 4 AM CDT 11/13/2023 5:50 PM CDT Radha Carlin MBBS EKG ORD * ANTI HCV (02/08/2022 11:20 AM CDT) HEPATITIS C ANTIBODY Non-React mandie Non-React mandie 02/09/2022 2:56 PM CDT [facility] Comment:Antibodies to HCV no t detected; does not exclude the possibility of exposure to HCV. Blood BLOOD SPECIMEN / Unknown Venipuncture / Unknown 02/08/2022 11:20 AM CDT 02/08/2022 11:27 AM CDT Marcio Gonzalez MD SEND OUTS [facility] [address] [place] [address], [place] * CT CHEST SCREENING LOW DOSE [...] Documents on File Type Date Recorded Patient Dial Refinisher Expl anation Treatment Guidelines 02/11/2022 * Full Code (Latest Code Status on File) Date Activated Date Inactivated Comments 02/13/2022 1:00 PM 02/14/2022 5:39 PM Question Answer Comments Code Status Discussion: Reviewed Preferences * Full Code Date Activated Date Inactivated Comments 02/13/2022 6:05 AM 02/13/2022 12:59 PM Question Answer Comments Code Status Discussion: Unable to Assess Preferences, Provider to review later Care Teams Fill Manager Relationship Specialty Start Date End Date Marcio Gonzalez MD [address] [facility] [address] PCP - General Family Practice 12/20/15
--- OUTSIDE RECORDS SUMMARY | 2023-12-06 10:16 | XMS_ITS | Encounter Summary ---
Author Organization [facility] Address [address] [place] [address] Care Team Providers Care Research Technologist Name Role Phone Unavailable Primary Care Provider Unavailabl e Reason for Referral * Outpatient (Routine) - Authorized Specialty Diagnoses / Procedures Referred By Janeth phillips Referred To Contact Diagnoses Glaucoma Neovascular Procedures Intravitreal Injection, Pharmacologic Agent - OS - Left Eye Suri Izquierdo M.D. [address] [place] [address] [facility] Referral ID Status Reason Start Date Expiration Date V isits Requested Visits Authorized [id number] Authorized 10/19/2023 10/18/2024 5 5 * Outpatient (Routine) - Authorized Specialty Diagnoses / Procedures Referred By Janeth phillips Referred To Contact Ophthalmology Suri Izquierdo M.D. [address] [place] [address] [facility] Referral ID Status Reason Start Date Expiration Date V isits Requested Visits Authorized [id number] Authorized 10/19/2023 04/19/2025 1 1 Scheduling Instructions Left Eye: Avastin Left eye for Other: Neovascular glaucoma within 1 week. Follow-up for 3 more injections of Avastin in the left eye every 4 - weeks. Followup: 4 - 5 weeks after last injection with OCT macula. Injection Location: [employer] Hold injection slot in [place]? Left eye Encounter Details Date Type Department Care Team (Late st Contact Info) Description 10/19/2023 Orders Only Department of Ophthalmology in [place], [place] [address] [place] [address] Juan David Cabrales M.D. [address] [place] [address] Glaucoma Neovascular (Primary Dx); Hemorrhage Vitreous Left (HCC) Social History Tobacco Use Types Packs/Day Years Used Date Smoking Tobacco: Unknown [facility] Utilities Answer Date Recorded In the past [...] CDT Clinical Communication Virtual Review in [place], [place] [address] [place] [address] 12/19/2023 10:00 AM CDT Comprehensive Visit Department of Neurology in [place], [place] [address] [place] [phone] Jojo Barrientos M.D. [address] [place] [phone] 12/27/2023 1:20 PM CDT Appointment Outpatient Procedure Center in [address] [phone] Suri Izquierdo M.D. [address] [place] [phone] Scheduled Orders Name Type Priority Associated Diagnoses [...] mg/mL ??Route: intravitreal, Site: Left Eye ??[facility]: 14126-568-04 Balanced salt solution irrigation to injected eye [...] or count fingers. Avastin, LEFT eye. [facility] 16851-921-06 LOT [id number] EXP 01/06/2024 First injection in [place]. ??Poor visual potential. ??Neovascular glaucoma and high intraocular pressure. ??Would consider cyclophotocoagulation as patient is having daily headaches likely related to uncontrolled intraocular pressure on maximal medical treatment. ?? No injection complications. Nicholas Carlos MD Suri Izquierdo M.D. [facility] documented in this encounter Visit Diagnoses Diagnosis Glaucoma Neovascular- Primary Hemorrhage Vitreous Left (HCC) Glaucoma Neovascular documented in this encounter
--- OUTSIDE RECORDS SUMMARY | 2023-12-06 10:16 | XMS_ITS | Encounter Summary ---
Author Organization [facility] Address [address] [place] [address] Care Team Providers Care Camp Maintenance Supervisor Name Role Phone Unavailable Primary Care Provider Unavailabl e Reason for Referral * Outpatient (Routine) - Authorized Specialty Diagnoses / Procedures Referred By Contac t Referred To Contact Diagnoses Ischemia Retina Procedures Intravitreal Injection Gonda Appt Order - OS - Left Eye Rachel Collins M.D., Ph.D. [address] [place] [phone] [facility] Referral ID Status Reason Start Date Expiration Date V isits Requested Visits Authorized [id number] Authorized 09/11/2023 09/10/2024 1 1 Encounter Details Date Type Department Care Team (Late st Contact Info) Description 09/11/2023 Orders Only Department of Ophthalmology in [place], [place] [address] [place] [phone] Anabel Lang C.O.A. [address] [place] [phone] Ischemia Retina (Primary Dx) Social History Tobacco [...] your living situation today? I have a [facility] place to live 07/25/2023 Sex and Gender Information Value Date Recorded Sex Assigned at Male 07/25/2023 8:23 PM CDT Gender Identity Male 07/25/2023 8:23 PM CDT Sexual Orientation Straight 07/25/2023 8: 23 PM CDT documented as of this encounter Plan of Treatment Upcoming Encounters Date Type Department Care Team (Latest Contact Info) Description 2023 12:15 PM CDT Clinical Communication Virtual Review in [place], [place] 200 [place] [address] 12/19/2023 10:00 AM CDT Comprehensive Visit Department of Neurology in [place], [place] [address] [place] [phone] Jojo Barrientos M.D. [address] [place] [phone] 12/27/2023 1:20 PM CDT Appointment Outpatient Procedure Center in [address] [phone] Suri Izquierdo M.D. [address] [place] [address] Scheduled Orders Name Type Priority Associated Diagnoses Orde r Schedule Intravitreal Injection Gonda Appt Order - OS - Left Eye Ophthalmology Routine Ischemia Retina 1 Occurrences starting 09/11/2023 until 12/11/2024 documented as of this encounter Visit Diagnoses Diagnosis Ischemia Retina- Primary documented in this encounter
--- OUTSIDE RECORDS SUMMARY | 2023-12-06 10:16 | XMS_ITS | Encounter Summary ---
Author Organization [facility] Address [address] [place] [address] Care Team Providers Care Manager Car Name Role Phone Unavailable Primary Care Provider Unavailabl e Encounter Details Date Type Department Care Team (Latest Contact Info) Description 10/18/2023 Clinical Communication Department of Ophthalmology in [place], [place] [address] [place] [address] Provider, Unknown Social History Tobacco Use Types Packs/Day Years Used Date Smoking Tobacco: Unknown [facility] Utilities Answer Date Recorded In the past 12 months has [facility] electric, gas, oil, or water company [...] PM CDT Clinical Communication Virtual Review in [place], [place] [address] [place] [address] 12/19/2023 10:00 AM CDT Comprehensive Visit Department of Neurology in [place], [place] [address] [place] [address] Jojo Barrientos M.D. [address] [place] [phone] 12/27/2023 1:20 PM CDT Appointment Outpatient Procedure Center in [address] [phone] Suri Izquierdo M.D. [address] [place] [phone] documented as of this encounter Visit Diagnoses Not on filedocumented in this encounter
--- OUTSIDE RECORDS SUMMARY | 2023-12-06 10:16 | XMS_ITS | Encounter Summary ---
Author Organization [facility] Address [address] [place] [address] Care Team Providers Care Carpenter Foreman Name Role Phone Unavailable Primary Care Provider Unavailabl e Encounter Details Date Type Department Care Team (Latest Contact Info) Description 10/16/2023 Clinical Communication Department of Ophthalmology in [place] [address] [place] [address] Red Gallego M.D. [address] [place] [phone] Social History Tobacco Use Types Packs/Day Years Used Date Smoking Tobacco: Unknown [facility] Utilities Answer Date Recorded In the past 12 months has [facility] electric, gas, oil, or water company [...] PM CDT Clinical Communication Virtual Review in [place], [place] [address] [place] [address] 12/19/2023 10:00 AM CDT Comprehensive Visit Department of Neurology in [place], [place] [address] [place] [phone] Jojo Barrientos M.D. [address] [place] [phone] 12/27/2023 1:20 PM CDT Appointment Outpatient Procedure Center in [address] [phone] Suri Izquierdo M.D. [address] [place] [phone] documented as of this encounter Visit Diagnoses Not on filedocumented in this encounter
--- OUTSIDE RECORDS SUMMARY | 2023-12-06 10:16 | XMS_ITS | Encounter Summary ---
Author Organization [facility] Address [address] [place] [address] Care Team Providers Care Broom Worker Name Role Phone Unavailable Primary Care Provider Unavailabl e Reason for Referral * Outpatient (Routine) - Authorized Specialty Diagnoses / Procedures Referred By Janeth phillips Referred To Contact Diagnoses Glaucoma Neovascular Procedures Intravitreal Injection, Pharmacologic Agent - OS - Left Eye Suri Izquierdo M.D. [address] [place] [address] [facility] Region Referral ID Status Reason Start Date Expiration Date V isits Requested Visits Authorized [id number] Authorized 10/19/2023 10/18/2024 5 5 Reason for Visit * Outpatient (Routine) - Authorized Specialty Diagnoses / Procedures Referred By Janeth phillips Referred To Contact Diagnoses Glaucoma Neovascular Procedures Intravitreal Injection, Pharmacologic Agent - OS - Left Eye Suri Izquierdo M.D. [address] [place] [address] [facility] Region Referral ID Status Reason Start Date Expiration Date V isits Requested Visits Authorized [id number] Authorized 10/19/2023 10/18/2024 5 5 Encounter Details Date Type Department Care Team (Latest Contact Info) Description 10/23/2023 1:51 PM CDT - 10/23/2023 2:53 PM CDT Hospital Encounter Outpatient Procedure Center in [place], [place] [address] [place] [address] Suri Izquierdo M.D. [address] [place] [address] Glaucoma Neovascular Discharge Disposition: Home or Self Care Social History Tobacco Use Types Packs/Day Years Used Date Smoking Tobacco: Unknown [facility] Utilities Answer Date Recorded In the past 12 months has th e [employer], gas, oil, or water [employer] threatened to shut off services in your [...] your living situation today? I have a [facility] place to live 07/25/2023 Sex and Gender [...] PM CDT Clinical Communication Virtual Review in [place], [place] 200 [place] [address] 12/19/2023 10:00 AM CDT Comprehensive Visit Department of Neurology in [place], [place] [address] [place] [address] Jojo Barrientos M.D. [address] [place] [address] 12/27/2023 1:20 PM CDT Appointment Outpatient Procedure Center in [address] [phone] Suri Izquierdo M.D. [address] [place] [address] documented as of this encounter Procedures Procedure [...] 25 mg/mL ??Route: intravitreal, Site: Left Eye ??[facility]: 47226-291-33 Balanced salt solution irrigation to injected eye [...] and return schedule given if requested. MEHRDAD [id number] Exp 01/06/24 Shelia Moody M.D. OPHTH CLINIC [...]
--- OUTSIDE RECORDS SUMMARY | 2023-12-06 10:16 | XMS_ITS | Encounter Summary ---
Author Organization [facility] Address [address] [place] [address] Care Team Providers Care Post Anesthesia Care Unit Nurse Name Role Phone Unavailable Primary Care Provider Unavailabl e Encounter Details Date Type Department Care Team (Latest Contact Info) Description 10/19/2023 Clinical Communication Department of Ophthalmology in [place], [place] [address] [place] [address] Suri Izquierdo M.D. [address] [place] [address] Social History Tobacco Use Types Packs/Day Years Used Date Smoking Tobacco: Unknown [facility] Utilities Answer Date Recorded In [...] PM CDT Clinical Communication Virtual Review in [place], [place] [address] [place] [address] 12/19/2023 10:00 AM CDT Comprehensive Visit Department of Neurology in [place], [place] [address] [place] [phone] Jojo Barrientos M.D. [address] [place] [phone] 12/27/2023 1:20 PM CDT Appointment Outpatient Procedure Center in [address] [phone] Suri Izquierdo M.D. [address] [place] [phone] documented as of this encounter Visit Diagnoses Not on filedocumented in this encounter
--- OUTSIDE RECORDS SUMMARY | 2023-12-06 10:16 | XMS_ITS | Encounter Summary ---
Author Organization [facility] Address [address] [place] [address] Care Team Providers Care Biology Research Assistant Name Role Phone Unavailable Primary Care Provider Unavailabl e Reason for Referral * Outpatient (Routine) - Authorized Specialty Diagnoses / Procedures Referred By Janeth phillips Referred To Contact Neurology Diagnoses Occlusion Carotid Artery Left Ischemia Retina Glaucoma Neovascular Neuropathy Optic Ischemic Bilateral Suri Izquierdo M.D. [address] [place] [address] [facility] Referral ID Status Reason Start Date Expiration Date V isits Requested Visits Authorized [id number] Authorized 10/23/2023 04/23/2025 1 1 * Outpatient (Routine) - Closed Specialty Diagnoses / Procedures Referred By Janeth phillips Referred To Contact Ophthalmology Suri Izquierdo M.D. [address] [place] [address] [facility] Referral ID Status Reason Start Date Expiration Date Visits Re quested Visits Authorized [id number] Closed 10/23/2023 04/23/2025 1 1 Scheduling Instructions VTD Reason for Visit * Outpatient (Routine) - Closed Specialty Diagnoses / Procedures Referred By Janeth phillips Referred To Contact Ophthalmology Suri Izquierdo M.D. [address] [place] [address] [facility] Referral ID Status Reason Start Date Expiration Date Visits Re quested Visits Authorized [id number] Closed 10/19/2023 04/19/2025 1 1 Encounter Details Date Type Department Care Team (Latest Contact Info) Description 10/23/2023 12:30 PM CDT Office Visit Department of Ophthalmology in [place], [place] [address] [place] [address] Suri Izquierdo M.D. [address] [place] [phone] Occlusion Carotid Artery Left (Primary Dx); Ischemia Retina; Glaucoma Neovascular; Neuropathy Optic Ischemic Bilateral Social History Tobacco Use Types Packs/Day Years Used Date Smoking Tobacco: Unknown [facility] Utilities Answer Date Recorded In the past 12 months has [facility] [employer], gas, oil, or water [employer] threatened to shut off services in your [...] had to drive to pharmacy in the [facility] to fill the prescription. He is otherwise using all his eye drops as instructed. After discussing with his children, he decided that he would prefer to establish care with a vascular specialist and or stroke specialist here at [facility], so he did not reach [...] place a referral tostroke neurology here at [place]. PLAN: - Avastin injection this afternoon in [...] last injection with OCT macula. Injection Location: [employer] Hold injection slot in [place]? Left eye Staffed with Dr. Herrera on 10/19/23 Patient discussed and seen with Dr. Sanchez today. Suri Izquierdo M.D. PGY-2 Ophthalmology Resident documented in this encounter Plan of Treatment Upcoming Encounters Date Type Department Care Team (Latest Contact Info) Description 2023 12:15 PM CDT Clinical Communication Virtual Review in [place], [place] 200 [place] [address] 12/19/2023 10:00 AM CDT Comprehensive Visit Department of Neurology in [place], [place] [address] [place] [phone] Jojo Barrientos M.D. [address] [place] [phone] 12/27/2023 1:20 PM CDT Appointment Outpatient Procedure Center in [address] [phone] Suri Izquierdo M.D. [address] [place] [address] Scheduled Referrals Name Type Priority Associated Diagnoses [...]
--- OUTSIDE RECORDS SUMMARY | 2023-12-06 10:16 | XMS_ITS | Encounter Summary ---
Author Organization [facility] Address [address] [place] [address] Care Team Providers Care Knitter Operator Name Role Phone Unavailable Primary Care Provider Unavailabl e Reason for Referral * Outpatient (Routine) - Authorized Specialty Diagnoses / Procedures Referred By Janeth phillips Referred To Contact Vascular Medicine Diagnoses Glaucoma Neovascular Suri Izquierdo M.D. [address] [place] [address] [facility] Referral ID Status Reason Start Date Expiration Date V isits Requested Visits Authorized [id number] Authorized 10/19/2023 04/19/2025 1 1 * Outpatient (Routine) - Closed Specialty Diagnoses / Procedures Referred By Janeth phillips Referred To Contact Ophthalmology Suri Izquierdo M.D. [address] [place] [address] [facility] Referral ID Status Reason Start Date Expiration Date Visits Re quested Visits Authorized [id number] Closed 10/19/2023 04/19/2025 1 1 Reason for Visit * Appointment Request (Routine) - Closed Specialty Diagnoses / Procedures Referred By Janeth t Referred To Contact Ophthalmology Referral ID Status Reason Start Date Expiration Date Visits Re quested Visits Authorized [id number] Closed 10/18/2023 10/17/2024 1 1 Encounter Details Date Type Department Care Team (Latest Contact Info) Description 10/19/2023 10:30 AM CDT Comprehensive Visit Department of Ophthalmology in [place], [place] [address] [place] [address] Suri Izquierdo M.D. [address] [place] [address] Glaucoma Neovascular (Primary Dx); Hemorrhage Vitreous Left [...] your living situation today? I have a [facility] place to live 07/25/2023 Sex and [...] a referral for vascular medicine here at [facility] if it is more convenient to group [...] last injection with OCT macula. Injection Location: [place] Hold injection slot in [place]? Left eye Staffed with Dr. Herrera. Patient [...] PM CDT Clinical Communication Virtual Review in [place], [place] [address] [place] [address] 12/19/2023 10:00 AM CDT Comprehensive Visit Department of Neurology in [place], [place] [address] [place] [phone] Jojo Barrientos M.D. [address] [place] [phone] 12/27/2023 1:20 PM CDT Appointment Outpatient Procedure Center in [address] [phone] Suri Izquierdo M.D. [address] [place] [phone] Scheduled Referrals Name Type Priority Associated Diagnoses [...] appears grossly attached, no mass noted. Suri GAMBINO ULTRAS ND OPHTHALMOLGY NON-IMAGING ORDERS documented in this encounter Visit Diagnoses Diagnosis Glaucoma Neovascular- Primary Hemorrhage Vitreous Left (HCC) Glaucoma Neovascular Hemorrhage Vitreous Left (HCC) documented in this encounter
== END 2023-12-06 10:02 | disposition home or self-care (01) ==
LOC: WOUND 10:03
PROVIDERS: PCP Family Medicine; Visit Provider Nurse Practitioner Family
DX: I87.311 Chronic venous hypertension (idiopathic) with ulcer of right lower extremity (principal); I89.0 Lymphedema, not elsewhere classified; L97.212 Non-pressure chronic ulcer of right calf with fat layer exposed
CPT/HCPCS: 97597

== ENCOUNTER 2023-12-20 09:59 | Outpatient (CLI) | payer MEDICARE, BC, SELFPAY ==
--- OUTSIDE RECORDS SUMMARY | 2023-12-20 10:09 | XMS_ITS | Encounter Summary ---
Author Organization [facility] Address [address] [place] [address] Care Team Providers Care Green Coffee Blender Name Role Phone Unavailable Primary Care Provider Unavailabl e Reason for Referral * Outpatient (Routine) - Closed Specialty Diagnoses / Procedures Referred By Janeth phillips Referred To Contact Procedures Tamayo Retinal Photocoagulation - OS - Left Eye Wero Gasca M.D. [address] [place] [phone] [facility] Referral ID Status Reason Start Date Expiration Date Visits Re quested Visits Authorized [id number] Closed 12/13/2023 12/12/2024 1 1 * Outpatient (Routine) - Authorized Specialty Diagnoses / Procedures Referred By Janeth phillips Referred To Contact Ophthalmology Wero Gasca M.D. 200 [place] [address] Doc Ferris M.D. [address] [place] [phone] Referral ID Status Reason Start Date Expiration Date V isits Requested Visits Authorized [id number] Authorized 12/13/2023 06/13/2025 1 1 Reason for Visit * Reason Comments Procedure * Outpatient (Routine) - Closed Specialty Diagnoses / Procedures Referred By Janeth phillips Referred To Contact Diagnoses Retinal Detachment With Single Break Left Eye Glaucoma Neovascular Procedures Focal Laser - OS - Left Eye Suri Izquierdo M.D. [address] [place] [address] [facility] Referral ID Status Reason Start Date Expiration Date Visits Re quested Visits Authorized [id number] Closed 12/07/2023 12/06/2024 1 1 Encounter Details Date Type Department Care Team (Latest Contact Info) Description 12/13/2023 10:00 AM CDT Procedure visit Department of Ophthalmology in [place], [place] [address] [place] [phone] Wero Gasca M.D. [address] [place] [phone] Retinal Detachment With Single Break Left Eye; Glaucoma Neovascular Social History Tobacco Use Types Packs/Day Years [...] Patient declined 07/25/2023 Nutrition Answer Date Recorded On average, how many serving s of [...] as of this encounter Progress Notes * Wero Gasca M.D. - 12/13/2023 10:00 AM CDT # Retinal detachment, left eye # Neovascular glaucoma, left eye # Likely vitreous hemorrhage, left eye # Ocular ischemic syndrome, left eye # Left ICA occlusion IMPRESSION 12/13/23 Patient seen today for left eye panretinal photocoagulation and retinal detachment barricade. Todayvisual acuity barely light perception. Intraocular pressure 26. After examination, the detachment is stable and hemorrhagic choroidal appears stable. Laser indirect ophthalmoscopy was done today to wall off the detachment and panretinal photocoagulation the rest of retina. Given patient cooperation, hazy media, positioning restrictions, pain and patient would not allow scleral depression, most of the detachment barricaded (up to nerve) but most anterior part to ora not covered. Rest of the retina lasered. Discussed with Dr. Ferris Continue with injections as scheduled. Follow up in [address] Ferris. PLAN: Retinal Injection Plan created on 10/23/2023 Left Eye: Avastin Left eye for Other: neovascular glaucoma 10/23/23 . Follow-up for 3 more injections of Avastin in the left eye every 4 weeks. Followup: 4 - 5 weeks after last injection with OCT macula. Injection Location: [place] Hold injection slot in [place]? Left eye documented in this encounter Plan of Treatment Upcoming Encounters Date Type Department Care Team (Latest Contact Info) Description 12/27/2023 1:20 PM CDT Appointment Outpatient Procedure Center in [address] [phone] Suri Izquierdo M.D. [address] [place] [address] 01/11/2024 9:15 AM CDT Ancillary Procedure Department of Ophthalmology in [place], [place] [address] [place] [address] Wero Gasca M.D. [address] [place] [phone] 01/11/2024 9:45 AM CDT Office Visit Department of Ophthalmology in [place], [place] [address] [place] [address] Doc Ferris M.D. [address] [place] [phone] Scheduled Referrals Name Type Priority Associated Diagnoses Order Schedule Ophthalmology office visit (clinic) Outpatient Referral Routine Expected: 01/12/2024, Expires: 03/13/2025 documented as of this encounter Procedures Procedure Name Priority Date/Time Associated Diagnosis Comments TAMAYO RETINAL PHOTOCOAGULATION - OS - LEFT EYE Routine 12/13/2023 11:26 AM CDT Retinal Detachment With Single Break Left Eye Glaucoma Neovascular documented in this encounter Results * Tamayo Retinal Photocoagulation - OS - Left Eye (12/13/2023 11:26 AM CDT) Narrative OPHTHALMOLGY NON-IMAGING ORDERS - 12/13/2023 11:26 AM CDT Time Out Confirmed correct patient, procedure, site, and patient consented. Anesthesia Topical anesthesia was used. Laser Information The type of laser was argon. The duration in seconds was 0.16. The spot size was 500.00 micrometers. Laser power was 280.00 milliwatts. Total spots was 1,311. Pattern was PRP. Post-op The patient tolerated the procedure well. The patient received written and verbal post procedure care education. Wero Hall M.D. [facility] OPHTHAL[facility] NON-IMAGING ORDERS documented in this encounter Visit Diagnoses Diagnosis Retinal Detachment With Single Break Left Eye Glaucoma Neovascular documented in this encounter
--- OUTSIDE RECORDS SUMMARY | 2023-12-20 10:09 | XMS_ITS | Encounter Summary ---
Author Organization [facility] Address [address] [place] [address] Care Team Providers Care Claim Technician Name Role Phone Unavailable Primary Care Provider Unavailabl e Reason for Visit * Reason Onset Date Comments Pre-visit Intake 2023 Encounter Details Date Type Department Care Team (Latest Contact Info) Description 2023 12:15 PM CDT Clinical Communication Virtual Review in [place], [place] [address] [place] [address] Pre-visit Intake Social History Tobacco Use Types Packs/Day Years Used Date Smoking Tobacco: Every Day Cigarettes Smokeless Tobacco: Never [facility] Utilities Answer Date Recorded In [...] PM CDT Appointment Outpatient Procedure Center in [address] [phone] Suri Izquierdo M.D. [address] [place] [phone] 01/11/2024 9:15 AM CDT Ancillary Procedure Department of Ophthalmology in [place], [place] [address] [place] [address] Wero Gasca M.D. [address] [place] [phone] 01/11/2024 9:45 AM CDT Office Visit Department of Ophthalmology in [place], [place] [address] [place] [phone] Doc Ferris M.D. [address] [place] [phone] documented as of this encounter Visit Diagnoses Not on filedocumented in this encounter
--- OUTSIDE RECORDS SUMMARY | 2023-12-20 10:09 | XMS_ITS | Referral Summary ---
Author Organization [facility] Address [address] [place] [address] Care Team Providers Care Measurement Superintendent Name Role Phone Unavailable Primary Care Provider Unavailabl e Source Comments Patient records contain information from all sites at [facility]. For routine questions regarding patient records, call [phone] during business hours, M-F 8:00 AM - 5:00 PM Central Time. Record requests for emergency care only can be directed to [phone] at any time.[facility] Encounters Date Type Department Care Team Description 12/19/2023 10:00 AM CDT Comprehensive Visit Department of Neurology in [place], [place] [address] [place] [phone] Jojo Barrientos M.D. Occlusion Carotid Artery Left; Ischemia Retina; Glaucoma Neovascular; Neuropathy Optic Ischemic Bilateral 2023 12:15 PM CDT Clinical Communication Virtual Review in [place], [place] [address] [place] [address] Pre-visit Intake 12/13/2023 10:00 AM CDT Procedure visit Department of Ophthalmology in [place], [place] [address] [place] [phone] Wero Gasca M.D. 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 12/07/2023 Clinical Communication Department of Ophthalmology in [place], [place] [address] [place] [phone] Carl Petty 12/07/2023 Documentation Department of Ophthalmology in [place], [place] [address] [place] [phone] Suri Izquierdo M.D. 11/30/2023 12:05 AM CDT Ancillary Procedure Department of Ophthalmology 11/30/2023 Ancillary Procedure Department of Ophthalmology 11/30/2023 1:30 PM CDT Office Visit Department of Ophthalmology in [place], [place] [address] [place] [phone] Suri Izquierdo M.D. 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 Hemorrhage Vitreous Left (HCC) 11/22/2023 9:02 AM CDT - 11/22/2023 11:59 PM CDT Hospital Encounter Outpatient Procedure Center in [address] [phone] Suri Izquierdo M.D. Glaucoma Neovascular Discharge Disposition: Home or Self Care 11/09/2023 12:00 PM CDT Office Visit Department of Ophthalmology in [place], [place] [address] [place] [phone] Suri Izquierdo M.D. Hemorrhage Vitreous Left (HCC) (Primary Dx); Glaucoma Neovascular; Occlusion Carotid Artery Left 11/02/2023 12:45 PM CDT Office Visit Department of Ophthalmology in [address] [phone] Suri Izquierdo M.D. Hemorrhage Vitreous Left (HCC) (Primary Dx); Ischemia Retina; Occlusion Carotid Artery Left 10/23/2023 2:54 PM CDT - 10/23/2023 11:59 PM CDT Hospital Encounter Outpatient Procedure Center in [address] [phone] Shelia Laughlin M.D. Discharge Disposition: Home or Self Care 10/23/2023 Orders Only Department of Ophthalmology in [place], [place] [address] [place] [phone] Anabel Lang C.O.A. Glaucoma Neovascular (Primary Dx) 10/23/2023 2:20 PM CDT Ancillary Procedure Department of Ophthalmology in [place], [place] [address] [place] [phone] 10/23/2023 1:51 PM CDT - 10/23/2023 2:53 PM CDT Hospital Encounter Outpatient Procedure Center in [place], [place] [address] [place] [phone] Suri Izquierdo M.D. Glaucoma Neovascular Discharge Disposition: Home or Self Care 10/23/2023 12:30 PM CDT Office Visit Department of Ophthalmology in [place], [place] [address] [place] [phone] Suri Izquierdo M.D. Occlusion Carotid Artery Left (Primary Dx); Ischemia Retina; Glaucoma Neovascular; Neuropathy Optic Ischemic Bilateral 10/19/2023 Orders Only Department of Ophthalmology in [place], [place] [address] [place] [phone] Juan David Cabrales M.D. Glaucoma Neovascular (Primary Dx); Hemorrhage Vitreous Left (HCC) 10/19/2023 Clinical Communication Department of Ophthalmology in [place], [place] [address] [place] [phone] Suri Izquierdo M.D. 10/19/2023 Ancillary Procedure Department of Ophthalmology 10/19/2023 2:00 PM CDT Ancillary Procedure Department of Ophthalmology in [place], [place] [address] [place] [phone] Suri Izquierdo M.D. Glaucoma Neovascular; Hemorrhage Vitreous Left (HCC) 10/19/2023 10:30 AM CDT Comprehensive Visit Department of Ophthalmology in [place], [place] [address] [place] [phone] Suri Izquierdo M.D. Glaucoma Neovascular (Primary Dx); Hemorrhage Vitreous Left (HCC) 10/18/2023 Clinical Communication Department of Ophthalmology in [place], [place] [address] [place] [address] Provider, Unknown 10/16/2023 Clinical Communication Department of Ophthalmology in [place], [place] [address] [place] [address] Red Gallego M.D. from Last 3 Months [...] at bedtime. 5 mL 3 11/02/2023 Active prednisoLONE acetate (Pred Forte) 1 % ophthalmic suspension Administer 1 drop into the left eye 3 (three) times a day. 5 mL 12/13/2023 Active dilTIAZem (Dilacor XR) 180 mg ER capsule Take 1 capsule by mouth daily. 11/13/2023 Active Klor-Con M20 20 mEq ER tablet Take by mouth 2 (two) times a day with meals. 11/14/2023 Active mirtazapine (Remeron) 7.5 mg tablet Take 7.5 mg by mouth at bedtime. 11/15/2023 Active magnesium oxide 400 mg magnesium capsule Take 400 mg by mouth. 11/10/2022 Active gabapentin (Neurontin) 100 mg capsule Take 1 capsule (100 mg total) by mouth 3 (three) times a day. 270 capsule 12/19/2023 Active Hospital, Clinic, or Other Facility Administered [...] Tobacco: Every Day Cigarettes Smokeless Tobacco: Never [facility] Chromaities Answer Date Recorded In the past 12 months has th e [employer], gas, oil, or water [employer] threatened to shut off services in your [...] your living situation today? I have a [facility] place to live 07/25/2023 Sex and Gender Information Value Date Recorded Sex Assigned at Male 07/25/2023 8:23 PM CDT Gender Identity Male 07/25/2023 8:23 PM CDT Sexual Orientation Straight 07/25/2023 8: 23 PM CDT Last Filed Vital Signs Vital Sign Reading Time Taken Comments Blood Pressure 127/67 12/19/2023 10:08 AM CDT Pulse 85 12/19/2023 10:08 AM CDT Temperature - - Respiratory Rate 16 07/24/2023 4:11 PM CDT Oxygen Saturation 93% 07/24/2023 4:11 PM CDT Inhaled Oxygen Concentration - - Weight 130 kg (286 lb 9.6 oz) 12/19/2023 10:08 A M CDT Height 185 cm (6' 0.84) 12/19/2023 10:08 AM CDT Body Mass Index 37.98 12/19/2023 10:08 AM CDT Plan of Treatment Upcoming Encounters Date Type Department Care Team (Latest Contact Info) Description 12/27/2023 1:20 PM CDT Appointment Outpatient Procedure Center in [address] [phone] Suri Izquierdo M.D. 200 [place] [address] 01/11/2024 9:15 AM CDT Ancillary Procedure Department of Ophthalmology in [place], [place] [address] [place] [phone] Wero Gasca M.D. 200 [place] [phone] 01/11/2024 9:45 AM CDT Office Visit Department of Ophthalmology in [place], [place] [address] [place] [phone] Doc Ferris M.D. [address] [place] [address] Medical Devices Implanted Type Area Insurance Administrator Device Identifier Shelf Expiration Date Model / Serial / Lot J J Sig Patella Oval 41 - Briones [id number] Implanted:Qty: 1 on 10/23/2011 Knee Implant Other/Legacy - See Implant Description [employer] Description:Device Manufactu rer - [employer]. Body Location - Other. Left. Device Status Text - [id number] [id number]. Depuy-Insert Stabilized Sz 5 12.5mm - Briones [id number] Implanted:Qty: 1 on 10/23/2011 Knee Implant Other/Legacy - See Implant Description [employer] Description:Device Manufactu rer - [employer]. Body Location - Other. Left. Device Status Text - [id number] [id number]. Depuy-Tib Tray Mod Cement Cocr Sz5 - Briones [id number] Implanted:Qty: 1 on 10/23/2011 Knee Implant Other/Legacy - See Implant Description [employer] Description:Device Manufactu rer - [employer]. Body Location - Other. Left. Device Status Text - KNEE [id number]. Sigma Post Stab.W Lug Fem Sz 6 Lt - Briones [id number] Implanted:Qty: 1 on 10/23/2011 Knee Implant Other/Legacy - See Implant Description [employer] Description:Device Manufactu rer - [employer]. Body Location - Other. Left. Device Status Text - KNEE [id number]. Cement Bone Large - Briones [id number] Implanted:Qty: 2 on 10/23/2011 Misc Other [place] Description:Device Manufactu rer - [place] [employer].. Device Status Text - [id number]. 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 B SCAN - OS - LEFT EYE Routine 2:12 PM CDT Hemorrhage Vitreous Left (HCC) OPHTHALMOLOGY IMAGE EXAM Routine 12:05 AM CDT OPHTHALMOLOGY IMAGE EXAM Routine 024 12:00 AM CDT INTRAVITREAL INJECTION, PHARMACOLOGIC AGENT [...] Vitreous Left (HCC) OPHTHALMOLOGY IMAGE EXAM Routine 12:00 AM CDT CREATININE WITH EGFR, S/P Routine 07/30/2023 8:13 AM CDT Loss Visual ELPN WITH CREATININE DIMPLE, P Routine 10/26/2011 4:13 AM CDT from Last 3 Months or Most Recently Relevant to Health Maintenance Results * Anderson Retinal Photocoagulation - OS - Left Eye (12/13/2023 11:26 AM CDT) [facility] OPHTHALMOLGY NON-IMAGING ORDERS - 12/13/2023 11:26 AM [...] education. Wero Hall M.D. [facility] Organization Address City/State/ZIP Co de Phone Number OPHTHALMOL NON-IMAGING ORDERS * B-Scan Ultrasound - OS - Left Eye (11/30/2023 2:12 PM CDT) Narrative OPHTHALMOLGY NON-IMAGING ORDERS - 12/03/2023 3:25 PM CDT 11/30/2023 B-scan Left Eye: Moderate to dense vitreous opacities mostly inferiorly, likely retinal detachment nasally from approximately 130E - 430E with possible break visualized on L430. Retina appears otherwise attached, no mass noted. Suri Izquierdo M.D. OPHTH ULTRASOU ND Performing Organization Address [facility] de Phone Number [facility] * Eyes US-Eye X-Prjg-Iuxtyrvjxvbef Image Exam (11/30/2023 12:05 AM CDT) Only [...] NG PROCEDURES Performing Organization Address [facility] de Phone Number IIHI NA * Intravitreal Injection, Pharmacologic Agent - [...] 25 mg/mL ??Route: intravitreal, Site: Left Eye ??[facility]: 13344-945-57 Balanced salt solution irrigation to injected eye [...] motion or count fingers. Avastin, LEFT eye. [facility] [id number] LOT [id number] EXP 01/06/2024 First injection in [place]. ??Poor [...] 25 mg/mL ??Route: intravitreal, Site: Left Eye ??[facility]: 33304-298-10 Balanced salt solution irrigation to injected eye [...] and return schedule given if requested. MEHRDAD [id number] Exp 01/06/24 Shelia Moody M.D. [facility] PRO CEDURES * B-Scan Ultrasound - OS - Left Eye (10/19/2023 3:27 PM CDT) Narrative OPHTHALMOLGY NON-IMAGING ORDERS - 10/19/2023 8:17 PM CDT Quality was good. Notes 10/19/2023 B-scan Left Eye: Moderate to dense vitreous opacities layered inferiorly and possible traction near 430PE. Retina appears grossly attached, no mass noted. Suri Izquierdo M.D. [facility] [place] OPHTHALMOLGY NON-IMAGING ORDERS * Creatinine with [...] M.D. LAB BLOOD ADD-ON Performing Organization Address City/[facility]/ZIP Co de Phone Number [facility] [address] [place] [address], [facility] DTL [facility] [address] [place] [address] * (ABNORMAL) Electrolyte Panel with Creatinine Dimple (10/26/2011 4:13 AM CDT) BUN (Blood Urea Nitrogen), S 8 8 - 24 MG/DL [facility] Sodium, P 135 135 - 145 MMOL/L [facility] HX Bicarbonate, P/S 32(H) 22 - 29 MMOL/L [facility] Potassium, P 4.5 3.6 - 5.2 MMOL/L [facility] Chloride, S 98(L) 100 - 108 MMOL/L [facility] Creatinine, Dimple 0.8(L) 0.9 - 1.4 MG/DL [facility] Glucose, S 117 70 - 140 MG/DL [facility] 10/26/2011 4:13 AM CDT 10/26/2011 4:13 AM CDT Allison Redmond P.A.-C., P.A. LAB BLOOD A DD-ON Performing Organization Address [facility] Co de Phone Number [facility] [address] [place] [address], [facility] from Last 3 Months or Most Recently Relevant to Health Maintenance
--- OUTSIDE RECORDS SUMMARY | 2023-12-20 10:09 | XMS_ITS | Clinical Summary ---
Author Organization [facility] Address [address] [place] [address] Care Team Providers Care Jewel Lathe Operator Name Role Phone Unavailable Primary Care Provider Unavailabl e Source Comments Patient records contain information from all sites at [facility]. For routine questions regarding patient records, call [phone] during business hours, M-F 8:00 AM - 5:00 PM Central Time. Record requests for emergency care only can be directed to [phone] at any time.[facility] Allergies Active Allergy Reactions Criticality Noted [...] Comprehensive Visit Department of Neurology in [address] [phone] Jojo Barrientos M.D. Occlusion Carotid Artery Left; Ischemia Retina; Glaucoma Neovascular; Neuropathy Optic Ischemic Bilateral 2023 12:15 PM CDT Clinical Communication Virtual Review in [address] [phone] Pre-visit Intake 12/13/2023 10:00 AM CDT Procedure visit Department of Ophthalmology in [address] [phone] Wero Gasca M.D. 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 12/07/2023 Clinical Communication Department of Ophthalmology in [place], [place] [address] [place] [phone] Carl Petty 12/07/2023 Documentation Department of Ophthalmology in [place], [place] [address] [place] [phone] Suri Izquierdo M.D. 11/30/2023 1:30 PM CDT Office Visit Department of Ophthalmology in [place], [place] [address] [place] [phone] Suri Izquierdo M.D. 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 Hemorrhage Vitreous Left (HCC) 11/30/2023 12:05 AM CDT Ancillary Procedure Department of Ophthalmology 11/30/2023 Ancillary Procedure Department of Ophthalmology 11/22/2023 9:02 AM CDT - 11/22/2023 11:59 PM CDT Hospital Encounter Outpatient Procedure Center in [address] [phone] Suri Izquierdo M.D. Glaucoma Neovascular Discharge Disposition: Home or Self Care 11/09/2023 12:00 PM CDT Office Visit Department of Ophthalmology in [address] [phone] Suri Izquierdo M.D. Hemorrhage Vitreous Left (HCC) (Primary Dx); Glaucoma Neovascular; Occlusion Carotid Artery Left 11/02/2023 12:45 PM CDT Office Visit Department of Ophthalmology in [place], [place] [address] [place] [phone] Suri Izquierdo M.D. Hemorrhage Vitreous Left (HCC) (Primary Dx); Ischemia Retina; Occlusion Carotid Artery Left 10/23/2023 2:54 PM CDT - 10/23/2023 11:59 PM CDT Hospital Encounter Outpatient Procedure Center in [place], [place] [address] [place] [phone] Shelia Laughlin M.D. Discharge Disposition: Home or Self Care 10/23/2023 2:20 PM CDT Ancillary Procedure Department of Ophthalmology in [place], [place] [address] [place] [phone] 10/23/2023 1:51 PM CDT - 10/23/2023 2:53 PM CDT Hospital Encounter Outpatient Procedure Center in [address] [phone] Suri Izquierdo M.D. Glaucoma Neovascular Discharge Disposition: Home or Self Care 10/23/2023 12:30 PM CDT Office Visit Department of Ophthalmology in [address] [phone] Suri Izquierdo M.D. Occlusion Carotid Artery Left (Primary Dx); Ischemia Retina; Glaucoma Neovascular; Neuropathy Optic Ischemic Bilateral 10/23/2023 Orders Only Department of Ophthalmology in [address] [phone] Anabel Lang C.O.A. Glaucoma Neovascular (Primary Dx) 10/19/2023 2:00 PM CDT Ancillary Procedure Department of Ophthalmology in [place], [place] [address] [place] [phone] Suri Izquierdo M.D. Glaucoma Neovascular; Hemorrhage Vitreous Left (HCC) 10/19/2023 10:30 AM CDT Comprehensive Visit Department of Ophthalmology in [address] [phone] Suri Izquierdo M.D. Glaucoma Neovascular (Primary Dx); Hemorrhage Vitreous Left (HCC) 10/19/2023 Orders Only Department of Ophthalmology in [place], [place] [address] [place] [phone] Juan David Cabrales M.D. Glaucoma Neovascular (Primary Dx); Hemorrhage Vitreous Left (HCC) 10/19/2023 Clinical Communication Department of Ophthalmology in [place], [place] [address] [place] [address] Suri Izquierdo M.D. 10/19/2023 Ancillary Procedure Department of Ophthalmology 10/18/2023 Clinical Communication Department of Ophthalmology in [place], [place] [address] [place] [address] Provider, Unknown 10/16/2023 Clinical Communication Department of Ophthalmology in [place], [place] [address] [place] [address] Red Gallego M.D. from Last 3 Months Social History Tobacco Use Types Packs/Day Years Used Date Smoking Tobacco: Every Day Cigarettes Smokeless Tobacco: Never [facility] Echolocationities Answer Date Recorded In the past 12 months has Yo[employer], gas, oil, or water [employer] threatened to shut off services in your [...] your living situation today? I have a [facility] place to live 07/25/2023 Sex and Gender [...] CDT Appointment Outpatient Procedure Center in [address] [phone] Suri Izquierdo M.D. 200 [place] [address] 01/11/2024 9:15 AM CDT Ancillary Procedure Department of Ophthalmology in [place], [place] [address] [place] [phone] Wero Gasca M.D. [address] [place] [phone] 01/11/2024 9:45 AM CDT Office Visit Department of Ophthalmology in [place], [place] [address] [place] [phone] Doc Ferris M.D. [address] [place] [address] Health Maintenance Due Date Last Done Comments Hepatitis C Screening 1945 Tobacco Cessation counseling 1945 Zoster Vaccines (1 of 2) 12/15/1995 [...] Completed 11/22/2023 Medical Devices Implanted Type Area Anime Designer Device Identifier Shelf Expiration Date Model / Serial / Lot J J Sig Patella Oval 41 - Briones [id number] Implanted:Qty: 1 on 10/23/2011 Knee Implant Other/Legacy - See Implant Description [employer] Description:Device Manufactu [facility] - [employer] & [employer]. Body Location - Other. Left. Device Status Text - KNEE [id number]. Depuy-Insert Stabilized Sz 5 12.5mm - Briones [id number] Implanted:Qty: 1 on 10/23/2011 Knee Implant Other/Legacy - See Implant Description [employer] Description:Device Manufactu rer - [employer]. Body Location - Other. Left. Device Status Text - KNEE [id number]. Depuy-Tib Tray Mod Cement Cocr Sz5 - Briones [id number] Implanted:Qty: 1 on 10/23/2011 Knee Implant Other/Legacy - See Implant Description [employer] Description:Device Manufactu rer - [employer]. Body Location - Other. Left. Device Status Text - KNEE [id number]. Sigma Post Stab.W Lug Fem Sz 6 Lt - Briones [id number] Implanted:Qty: 1 on 10/23/2011 Knee Implant Other/Legacy - See Implant Description [employer] Description:Device Manufactu rer - [employer]. Body Location - Other. Left. Device Status Text - KNEE [id number]. Cement Bone Large - Briones [id number] Implanted:Qty: 2 on 10/23/2011 Misc Other [place] Description:Device Manufactu rer - Beverly Amarilis.. Device [...] Vitreous Left (HCC) OPHTHALMOLOGY IMAGE EXAM Routine 024 12:00 AM CDT CREATININE WITH EGFR, S/P [...] post procedure care education. Wero Hall M.D. [facility] Performing Organization Address [place]/[facility]/ZIP Co de Phone Number OPHTHALMFORMERLY [facility] NON-IMAGING ORDERS * B-Scan Ultrasound - OS - Left Eye (11/30/2023 2:12 PM CDT) Narrative OPHTHALMOLGY NON-IMAGING ORDERS - 12/03/2023 3:25 PM CDT 11/30/2023 B-scan Left Eye: Moderate to dense vitreous opacities mostly inferiorly, likely retinal detachment nasally from approximately 130E - 430E with possible break visualized on L430. Retina appears otherwise attached, no mass noted. Suri Izquierdo M.D. [facility] Performing Organization Address City/[facility]/ZIP Co de Phone Number OPHTHALMOLGY NON-IMAGING ORDERS * Eyes US-Eye [id number] Image Exam (11/30/2023 12:05 AM CDT) Only the most recent of3 resultswithin the time period is included. Narrative JEANETH - 11/30/2023 2:12 PM CDT This order has been created and auto-finalized to support the import of images acquired without order. The clinical documentation to support these images can be found on the encounter that produced images. Provider Not In System IMG NON RAD IMAGI NG PROCEDURES IIND NA * Intravitreal Injection, Pharmacologic Agent - [...] intravitreal, Site: Left Eye ??[facility]: 55041-516-04 Balanced salt solution irrigation to injected eye [...] fingers. Avastin, LEFT eye. [facility] 11156-927-14 LOT [id number] EXP 01/06/2024 First injection in [place]. ??Poor [...] intravitreal, Site: Left Eye ??[facility]: 65535-497-78 Balanced salt solution irrigation to injected eye [...] discussed and return schedule given if requested. [id number] Exp 01/06/24 Shelia Moody M.D. [facility] PRO CEDURES * B-Scan Ultrasound - OS - Left Eye (10/19/2023 3:27 PM CDT) Narrative OPHTHALMOLGY NON-IMAGING ORDERS - 10/19/2023 8:17 PM CDT Quality was good. Notes 10/19/2023 B-scan Left Eye: Moderate to dense vitreous opacities layered inferiorly and possible traction near 430PE. Retina appears grossly attached, no mass noted. Suri Izquierdo M.D. [facility] [place] Performing Organization Address City/[facility]/ZIP Co de Phone Number OPHTHALMOL NON-IMAGING ORDERS * Creatinine with Estimated GFR (07/30/2023 8:13 AM CDT) Creatinine 1.15 0.74 - 1.35 mg/dL 07/30/2023 9:14 AM CDT DTL Estimated GFR (eGFR) 66 >=60 mL/min/BSA 07/30/2023 9:14 AM CDT DTL Comment: Estimated GFR calculated using the 2020 CKD_EPI creatinine equation. Blood (Blood, Venous) 07/30/2023 8:13 AM CDT 07/30/2023 8:52 AM CDT Red Gallego M.D. LAB BLOOD ADD-ON [facility] [address] [place] [address], [facility] DTL [facility] [address] [place] [address] * (ABNORMAL) Electrolyte Panel with Creatinine Dimple (10/26/2011 4:13 AM CDT) BUN (Blood Urea Nitrogen), S 8 8 - 24 MG/DL [facility] Sodium, P 135 135 - 145 MMOL/L [facility] HX Bicarbonate, P/S 32(H) 22 - 29 MMOL/L [facility] Potassium, P 4.5 3.6 - 5.2 MMOL/L [facility] Chloride, S 98(L) 100 - 108 MMOL/L [facility] Creatinine, Dimple 0.8(L) 0.9 - 1.4 MG/DL [facility] Glucose, S 117 70 - 140 MG/DL [facility] 10/26/2011 4:13 AM CDT 10/26/2011 4:13 AM CDT Allison Redmond P.A.-C., P.A. LAB BLOOD A DD-ON [facility] [address] [place] [address], [facility] from Last 3 Months or Most Recently Relevant to Health Maintenance
--- OUTSIDE RECORDS SUMMARY | 2023-12-20 10:09 | XMS_ITS | Encounter Summary ---
Author Organization [facility] Address [address] [place] [address] Care Team Providers Care Data Entry Operator Name Role Phone Unavailable Primary Care Provider Unavailabl e Reason for Visit * Outpatient (Routine) - Closed Specialty Diagnoses / Procedures Referred By Contac t Referred To Contact Neurology Diagnoses Occlusion Carotid Artery Left Ischemia Retina Glaucoma Neovascular Neuropathy Optic Ischemic Bilateral Suri Izquierdo M.D. [address] [place] [address] [facility] Referral ID Status Reason Start Date Expiration Date Visits Re quested Visits Authorized [id number] Closed 10/23/2023 04/23/2025 1 1 Encounter Details Date Type Department Care Team (Latest Contact Info) Description 12/19/2023 10:00 AM CDT Comprehensive Visit Department of Neurology in [place], [place] [address] [place] [phone] Jojo Barrientos M.D. [address] [place] [phone] Occlusion Carotid Artery Left; Ischemia Retina; Glaucoma Neovascular; Neuropathy Optic Ischemic Bilateral Social History Tobacco Use Types Packs/Day Years Used Date Smoking Tobacco: Every Day Cigarettes Smokeless Tobacco: Never [facility] Utilities Answer Date Recorded In the [...] today? I have a [facility] place to live 07/25/2023 Sex and [...] AM CDT Temperature - - Respiratory Rate - - Oxygen Saturation - - Inhaled Oxygen Concentration - - Weight 130 kg (286 lb 9.6 oz) 12/19/2023 10:08 A M CDT Height 185 cm (6' 0.84) 12/19/2023 10:08 AM CDT Body Mass Index 37.98 12/19/2023 10:08 AM CDT documented in this encounter Progress Notes * Jojo Barrientos M.D. - 12/19/2023 10:00 AM CDT Images from the original note were not included. SUBJECTIVE CHIEF COMPLAINT / REASON FOR VISIT Patient is a 78 y.o. year old male who presents for the evaluation of left eye ocular ischemia and left ICA occlusion. HISTORY OF PRESENT ILLNESS 2019: Patient had a left MCA stroke with word finding difficulty. Records suggest he had an incomplete left ICA occlusion with reconstitution at the carotid siphon. He was treated with aspirin and plavix x 90 days, followed by daily aspirin. 12/13/2021 While undergoing testing for lower extremity peripheral vascular disease a carotid ultrasound was performed demonstrating <50% stenosis of the right ICA and total occlusion of the left. Patient has been on eliquis for atrial fibrillation and aspirin because of history of stroke and peripheral vascular disease. March 2023-July 2023: The patient reported having left eye and periorbital pain starting in late March 2023. At this time the left eye vision also started to worsen. The vision gradually progressed to its current level which the patient indicates has been present for 1-2 months. He did have a mildly elevated CRP outside 03/27/2023 and an elevated CRP and ESR in July. CTA showed left carotid occlusion. A temporal artery biopsy was recommended, but shortly there after he was hospitalized for pneumonia and this was not done. . 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 He has been followed closely due to neovascularization. He has some pain above his left eyebrow that comes and goes. He takes tylenol and tramadol as needed forthis pain and for back pain, but reports his doctor only allows 1 tramadol per day. I did obtain collateral history from others in the office today. I have reviewed outside records for this visit. I have directly reviewed imaging studies for this visit. Past Medical History Femoral endarterectomy, 2021 Endovascular repair of iliac aneurysm 2021 Hyperlipidemia History of ischemic stroke, 2019 History of ocular ischemia 2023, left side Left internal carotid artery occlusion, chronic, atherosclerosis COPD History of tobacco use; history of daily marijuana use [place] Elevated PSA in past Colonic polyp Recent pneumonia with ongoing oxygen requirement Social History: Uses daily marijuana. . Accompanied by and daughter. Tobacco: reports that he has been smoking cigarettes. He has never used smokeless tobacco. Alcohol: has no history on file for alcohol use. Drugs: has no history on file for drug use. Current Outpatient Medications: acetaminophen (TYLENOL) 325 mg tablet, Take 650 mg by mouth every 6 (six) hours., Disp: , Rfl: acetic acid 0.25 % irrigation (sterile), Apply 1 Application topically daily., albuterol 90 mcg/actuation inhaler, Inhale 2 puffs every 4 (four) hours as needed., ammonium lactate (LAC-HYDRIN) 12 % lotion, Apply 1 Application topically daily., Disp: , Rfl: aspirin 81 mg chewable tablet, Chew 81 mg daily., Disp: , Rfl: atorvastatin (LIPITOR) 40 mg tablet, Take 40 mg by mouth at bedtime., Disp: , Rfl: atropine (Isopto Atropine) 1 % ophthalmic solution, Administer 1 drop into the left eye 2 (two) times a day., Disp: 2 mL, Rfl: 12 brimonidine (Alphagan) 0.2 % ophthalmic solution, Administer 1 drop into the left eye 3 (three) times a day., Disp: 5 mL, Rfl: 3 dilTIAZem (Dilacor XR) 180 mg ER capsule, Take 1 capsule by mouth daily., Disp: , Rfl: dorzolamide (Trusopt) 2 % ophthalmic solution, Administer 1 drop into the left eye 2 (two) times a day., Disp: 10 mL, Rfl: 12 Eliquis 5 mg tablet, Take 5 mg by mouth 2 (two) times a day., Disp: , Rfl: furosemide (LASIX) 20 mg tablet, Take 20 mg by mouth 2 (two) times a day., Klor-Con M20 20 mEq ER tablet, Take by mouth 2 (two) times a day with meals., latanoprost (Xalatan) 0.005 % ophthalmic solution, Administer 1 drop into both eyes at bedtime., Disp: 5 mL, Rfl: 3 magnesium oxide 400 mg magnesium capsule, Take 400 mg by mouth., mirtazapine (Remeron) 7.5 mg tablet, Take 7.5 mg by mouth at bedtime., prednisoLONE acetate (Pred Forte) 1 % ophthalmic suspension, Administer 1 drop into the left eye 3 (three) times a day., Disp: 5 mL, Rfl: 0 traMADoL (ULTRAM) 50 mg tablet, Take 50 mg by mouth daily., Disp: , Rfl: Trelegy Ellipta 100-62.5-25 mcg inhaler, 1 puff daily., Disp: , Rfl: The following portions of the patient's history were reviewed and updated as appropriate: allergies, current medications, family history, medical history, social history, surgical history and problemlist. REVIEW OF SYSTEMS Ten point review of systems completed; pertinent positives noted in HPI. 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 Motor strength is normal in the upper and lower extremities. He is diffusely diminished reflexes throughout. He has mild word-finding difficulty but is able to name, repeat and comprehend. Speech is normal without dysarthria. He is jarad wheelchair. He is using oxygen. Data Review CTA 2023 IMPRESSION: 1. 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 The left internal carotid artery is reconstituted intracranially at the level of the cavernous segment, where there is multifocal moderate stenosis. 2. 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 MRI brain attempted, but could not complete Echo 2021 Final Impressions: 1. Normal left ventricular size, moderately increased wall thickness, normal global systolic function, calculated EF of 63 %. 2. Mild biatrial enlargement 3. The aortic valve is trileaflet and sclerotic, no stenosis and no regurgitation. 4. The ascending aorta is borderline dilated with a maximal diameter of 3.8 cm. 5. The aortic sinus is borderline dilated with a maximal diameter of 4.0 cm. CBC: Lab Results Component Value Date WBC 12.8 (H) 07/30/2023 HGB 10.9 (L) 07/30/2023 HCT 35.0 (L) 07/30/2023 MCV 98.9 (H) 07/30/2023 PLT 207 07/30/2023 ESR/CRP: Lipids: Lab Results Component Value Date HDL 18 (L) 12/01/2022 HDL 21 (L) 09/28/2020 HDL 36 (L) 11/14/2019 Lab Results Component Value Date TRIG 193 (H) 12/01/2022 TRIG 85 09/28/2020 TRIG 135 11/14/2019 Lab Results Component Value Date NONHDLCHOLES 56 12/01/2022 NONHDLCHOLES 75 09/28/2020 NONHDLCHOLES 89 11/14/2019 A1C: Lab Results Component Value Date HGBA1C 6.2 02/22/2021 Lab Results Component Value Date NA 139 03/27/2023 CL 103 03/27/2023 CREATININE 1.15 07/30/2023 EGFR 66 07/30/2023 BUN 13 03/27/2023 ANIONGAP 7 03/27/2023 GLUCOSE 108 (H) 03/27/2023 CALCIUM 8.8 03/27/2023 ASSESSMENT / PLAN #1 Left ocular ischemia, 2023 #2 Left MCA stroke, 2019 # Left ICA occlusion, atherosclerosis # Intracranial atherosclerosis Patient has left ocular ischemia likely due to hypoperfusion. He has had a left MCA stroke in 2019.The left ICA is chronically occluded due to presumptive atherosclerosis in addition he has siphon stenosis bilaterally. - Antithrombotic: For atrial fibrillation, continue the Eliquis. Yearly creatinine lab is importantto make sure the Eliquis is dosed appropriately. For the carotid artery disease and peripheral vascular disease, continue the aspirin daily. - Interventions: Neither endovascular opening of the carotid nor STA MCA bypass will be of value tothis patient. - Risk factors: Vascular risk factor goals for cerebral ischemia include: BP<130/80, LDL<70mg/dl If atherosclerotic stroke and beginning LDL >100mg/dl, normoglycemia, no tobacco, normal BMI (<25). His last cholesterol value was over a year ago. Recommend he follow up on this. We talked about hydration status to make sure the collateral to the left hemispheres as adequate. We talked about ways to avoid hypotension which can lead to further left hemisphere cerebral ischemia. - Functional Impairment: From the pain standpoint, he could consider gabapentin or topical agents. He would like additional tramadol, but he would need to talk to a pain specialist about such. He could consider gabapentin 100 mg t.i.d. or 100 mg twice daily given his variability in waking time in the morning. This could be further increased in frequency and or dosage depending on how he responds.He will need close I follow up - Surveillance: Recommend repeat carotid ultrasound in 6 months to 1 year. -- --- -- -- -- -- -- -- FINAL PLAN: COMMUNICATION: Send non urgent messages through portal (2-4 day turnaround); Urgent messages, call.Emergent issues, seek local emergency care. CALL SOONER IF: Acute stroke symptoms (unilateral numbness/weakness/incoordination; speech/swallowing difficulties, gait ataxia, vision loss) documented in this encounter Plan of Treatment Upcoming Encounters Date Type Department Care Team (Latest Contact Info) Description 12/27/2023 1:20 PM CDT Appointment Outpatient Procedure Center in [address] [phone] Suri Izquierdo M.D. [address] [place] [address] 01/11/2024 9:15 AM CDT Ancillary Procedure Department of Ophthalmology in [place], [place] [address] [place] [address] Wero Gasca M.D. [address] [place] [phone] 01/11/2024 9:45 AM CDT Office Visit Department of Ophthalmology in [place], [place] [address] [place] [address] Doc Ferris M.D. [address] [place] [phone] documented as of this encounter Visit Diagnoses Diagnosis Occlusion Carotid Artery Left Ischemia Retina Glaucoma Neovascular Neuropathy Optic Ischemic Bilateral documented in this encounter
--- OUTSIDE RECORDS SUMMARY | 2023-12-20 10:09 | XMS_ITS | Encounter Summary ---
Author Organization [facility] Address [address] [place] [address] Care Team Providers Care Call Taker Name Role Phone Unavailable Primary Care Provider Unavailabl e Encounter Details Date Type Department Care Team (Latest Contact Info) Description 12/07/2023 Clinical Communication Department of Ophthalmology in [place], [place] [address] [place] [address] Carl Petty Social History Tobacco Use Types Packs/Day Years Used Date Smoking Tobacco: Unknown [facility] Utilities Answer Date Recorded In the [...] CDT Appointment Outpatient Procedure Center in [address] [phone] Suri Izquierdo M.D. [address] [place] [phone] 01/11/2024 9:15 AM CDT Ancillary Procedure Department of Ophthalmology in [place], [place] [address] [place] [address] Wero Gasca M.D. [address] [place] [address] 01/11/2024 9:45 AM CDT Office Visit Department of Ophthalmology in [place], [place] [address] [place] [phone] Doc Ferris M.D. [address] [place] [phone] documented as of this encounter Visit Diagnoses Not on filedocumented in this encounter
--- OUTSIDE RECORDS SUMMARY | 2023-12-20 10:09 | XMS_ITS | Encounter Summary ---
Author Organization [facility] Address [address] [place] [address] Care Team Providers Care Life Scientist Name Role Phone Unavailable Primary Care Provider Unavailabl e Encounter Details Date Type Department Care Team (Latest Contact Info) Description 12/07/2023 Clinical Communication Department of Ophthalmology in [place], [place] [address] [place] [address] Suri Izquierdo M.D. [address] [place] [address] Social History Tobacco Use Types Packs/Day Years Used Date Smoking Tobacco: Unknown [facility] Utilities Answer Date Recorded In [...] PM CDT Appointment Outpatient Procedure Center in [address] [phone] Suri Izquierdo M.D. [address] [place] [phone] 01/11/2024 9:15 AM CDT Ancillary Procedure Department of Ophthalmology in [place], [place] [address] [place] [phone] Wero Gasca M.D. [address] [place] [phone] 01/11/2024 9:45 AM CDT Office Visit Department of Ophthalmology in [place], [place] [address] [place] [phone] Doc Ferris M.D. [address] [place] [phone] documented as of this encounter Visit Diagnoses Not on filedocumented in this encounter
--- OUTSIDE RECORDS SUMMARY | 2023-12-20 10:09 | XMS_ITS ---
Author Organization [facility] Address [address] [place] [address] Care Team Providers Care Emergency Vehicle Operations Instructor Name Role Phone Unavailable Unavailable Unavailable Surgery Details Not on file Complications Check Surgery Details section. Procedure Estimated Blood Loss Check Surgery Details section. Procedure Findings Check Surgery Details section. Procedure Specimens Taken Check Surgery Details section.
--- OUTSIDE RECORDS SUMMARY | 2023-12-20 10:10 | XMS_ITS | Encounter Summary ---
Author Organization [facility] Address [address] [place] [address] Care Team Providers Care Steward/Stewardess Second Class Name Role Phone Unavailable Primary Care Provider Unavailabl e Encounter Details Date Type Department Care Team (Late st Contact Info) Description 10/23/2023 2:20 PM CDT Ancillary Procedure Department of Ophthalmology in [place], [place] [address] [place] [address] Social History Tobacco Use Types Packs/Day Years [...] your living situation today? I have a [facility] place to live 07/25/2023 Sex [...] CDT Appointment Outpatient Procedure Center in [address] [phone] Suri Izquierdo M.D. [address] [place] [address] 01/11/2024 9:15 AM CDT Ancillary Procedure Department of Ophthalmology in [place], [place] [address] [place] [address] Wero Gasca M.D. [address] [place] [phone] 01/11/2024 9:45 AM CDT Office Visit Department of Ophthalmology in [place], [place] [address] [place] [phone] Doc Ferris M.D. [address] [place] [phone] documented as of this encounter Visit Diagnoses Not on filedocumented in this encounter
--- OUTSIDE RECORDS SUMMARY | 2023-12-20 10:10 | XMS_ITS | Encounter Summary ---
Author Organization [facility] Address [address] [place] [address] Care Team Providers Care Ear Nose Throat Surgeon Name Role Phone Unavailable Primary Care Provider Unavailabl e Reason for Referral * Outpatient (Routine) - Closed Specialty Diagnoses / Procedures Referred By Janeth t Referred To Contact Diagnoses Retinal Detachment With Single Break Left Eye Glaucoma Neovascular Procedures Focal Laser - OS - Left Eye Suri Izquierdo M.D. [address] [place] [address] [facility] Referral ID Status Reason Start Date Expiration Date Visits Re quested Visits Authorized [id number] Closed 12/07/2023 12/06/2024 1 1 Encounter Details Date Type Department Care Team (Late st Contact Info) Description 12/07/2023 Documentation Department of Ophthalmology in [place], [place] [address] [place] [phone] Suri Izquierdo M.D. [address] [place] [phone] Social History Tobacco Use Types Packs/Day Years Used Date Smoking Tobacco: Unknown [facility] Utilities Answer Date Recorded [...] your living situation today? I have a [facility] place to live 07/25/2023 Sex and Gender Information Value Date Recorded Sex Assigned at Male 07/25/2023 8:23 PM CDT Gender Identity Male 07/25/2023 8:23 PM CDT Sexual Orientation Straight 07/25/2023 8: 23 PM CDT documented as of this encounter Progress Notes * Suri Izquierdo M.D. - 12/07/2023 3:04 PM CDT Discussed today with Dr. Ferris regarding best management of retinal detachment in the left eye noted at patient's last visit last week. Given the patient's medical comorbidities, particularly his vascular comorbidities and respiratory status, limited visual potential in the left eye (currently light perception, with best case scenario being count fingers as previously recorded his July visit), as well as the need for him to undergo general anesthesia to complete the surgery given his severe back pain and inability to lay flat on his back (his reports that he had previous trouble with light sedation for cataract surgery, and pars plana vitrectomy with endolaser would be an even longer p rocedure), we believe that the risk of undergoing this surgery under general anesthesia would not be worth the benefit. I discussed this with the patient's , John today as well, and she and the patient are in agreement with this plan. I have placed an order for panretinal photocoagulation with laser barricade of the retinal detachment to be performed in Dr. Ferris's next available laser clinic with retina fellow or resident, ideally to be performed within the next week. Discussed with front edger, who will schedule this. Discussed with Dr. Ferris. documented in this encounter Plan of Treatment Upcoming Encounters Date Type Department Care Team (Latest Contact Info) Description 12/27/2023 1:20 PM CDT Appointment Outpatient Procedure Center in [address] [phone] Suri Izquierdo M.D. [address] [place] [phone] 01/11/2024 9:15 AM CDT Ancillary Procedure Department of Ophthalmology in [place], [place] [address] [place] [address] Wero Gasca M.D. [address] [place] [phone] 01/11/2024 9:45 AM CDT Office Visit Department of Ophthalmology in [place], [place] [address] [place] [phone] Doc Ferris M.D. [address] [place] [phone] documented as of this encounter Visit Diagnoses Diagnosis Retinal Detachment With Single Break Left Eye- Primary Glaucoma Neovascular documented in this encounter
--- OUTSIDE RECORDS SUMMARY | 2023-12-20 10:10 | XMS_ITS | Encounter Summary ---
Author Organization [facility] Address [address] [place] [address] Care Team Providers Care Supply Chain Vice President Name Role Phone Unavailable Primary Care Provider Unavailabl e Encounter Details Date Type Department Care Team (Latest Contact Info) Description 11/30/2023 1:00 PM CDT Ancillary Procedure Department of Ophthalmology in [place], [place] [address] [place] [address] Suri Izquierdo M.D. [address] [place] [address] Hemorrhage Vitreous Left (HCC) Social History Tobacco Use Types Packs/Day Years Used Date Smoking Tobacco: Unknown [facility] Utilities Answer Date Recorded In the past 12 months has [facility] electric, gas, oil, or water company [...] your living situation today? I have a [employer] place to live 07/25/2023 [...] PM CDT Appointment Outpatient Procedure Center in [address] [phone] Suri Izquierdo M.D. 200 [place] [address] 01/11/2024 9:15 AM CDT Ancillary Procedure Department of Ophthalmology in [place], [place] [address] [place] [address] Wero Gasca M.D. [address] [place] [phone] 01/11/2024 9:45 AM CDT Office Visit Department of Ophthalmology in [place], [place] [address] [place] [phone] Doc Ferris M.D. [address] [place] [phone] documented as of this encounter Procedures Procedure [...] otherwise attached, no mass noted. BRET Suri GAMBINO MUSA SELINA OPHTHALMOLGY NON-IMAGING ORDERS documented in this encounter Visit Diagnoses Diagnosis Hemorrhage Vitreous Left (HCC) documented in this encounter
--- OUTSIDE RECORDS SUMMARY | 2023-12-20 10:10 | XMS_ITS | Encounter Summary ---
Author Organization [facility] Address [address] [place] [address] Care Team Providers Care Proof Clerk Name Role Phone Unavailable Primary Care Provider Unavailabl e Encounter Details Date Type Department Care Team (Late st Contact Info) Description 11/30/2023 Ancillary Procedure Department of Ophthalmology Social History Tobacco Use Types Packs/Day Years Used Date Smoking Tobacco: Unknown [facility] Utilities Answer Date Recorded In the past 12 months has th e electric, gas, oil, or water [employer] threatened to shut off services in your [...] PM CDT Appointment Outpatient Procedure Center in [address] [phone] Suri Izquierdo M.D. [address] [place] [address] 01/11/2024 9:15 AM CDT Ancillary Procedure Department of Ophthalmology in [place], [place] [address] [place] [address] Wero Gasca M.D. [address] [place] [phone] 01/11/2024 9:45 AM CDT Office Visit Department of Ophthalmology in [place], [place] [address] [place] [address] Doc Ferris M.D. [address] [place] [phone] documented as of this encounter Procedures Procedure Name Priority Date/Time Associated Diagnosis Comments OPHTHALMOLOGY IMAGE EXAM Routine 11/30/2023 12:00 AM CDT documented in this encounter Results * Video-Eyes US-Eye [id number] Image Exam (11/30/2023 12:00 AM CDT) Narrative [...]
--- OUTSIDE RECORDS SUMMARY | 2023-12-20 10:10 | XMS_ITS | Encounter Summary ---
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 200 [place] [address] [facility] Referral ID Status Reason Start Date Expiration Date Visits Re quested Visits Authorized [id number] Closed 10/23/2023 04/23/2025 1 1 * Outpatient (Routine) - Closed Specialty Diagnoses / Procedures Referred By Janeth phillips Referred To Contact Ophthalmology Suri Izquierdo M.D. 200 [place] [address] [facility] Referral ID Status Reason Start Date Expiration Date Visits Re quested Visits Authorized [id number] Closed 10/23/2023 04/23/2025 1 1 Scheduling Instructions VTD Reason for Visit * Outpatient (Routine) - Closed Specialty Diagnoses / Procedures Referred By Janeth phillips Referred To Contact Ophthalmology Suri Izquierdo M.D. 200 [place] [address] [facility] Referral ID Status Reason Start Date Expiration Date Visits Re quested Visits Authorized [id number] Closed 10/19/2023 04/19/2025 1 1 Encounter Details Date Type Department Care Team (Latest Contact Info) Description 10/23/2023 12:30 PM CDT Office Visit Department of Ophthalmology in [place], [place] [address] [place] [address] Suri Izquierdo M.D. [address] [place] [phone] Occlusion Carotid Artery Left (Primary Dx); Ischemia Retina; Glaucoma Neovascular; Neuropathy Optic Ischemic Bilateral Social History Tobacco Use Types Packs/Day Years Used Date Smoking Tobacco: Unknown [facility] Utilities Answer Date Recorded In the past 12 months has e [employer], gas, oil, or water [employer] threatened to shut off services in your [...] living situation today? I have a [facility] place to live 07/25/2023 Sex and [...] had to drive to pharmacy in the [facility] to fill the prescription. He is otherwise using all his eye drops as instructed. After discussing with his children, he decided that he would prefer to establish care with a vascular specialist and or stroke specialist here at [facility], so he did not reach out [...] place a referral tostroke neurology here at [place]. PLAN: - Avastin injection this afternoon in [...] last injection with OCT macula. Injection Location: [place] Hold injection slot in [place]? Left eye Staffed with Dr. Herrera on 10/19/23 Patient discussed and seen with Dr. Sanchez today. Suri Izquierdo M.D. PGY-2 Ophthalmology Resident documented in this encounter Plan of Treatment Upcoming Encounters Date Type Department Care Team (Latest Contact Info) Description 12/27/2023 1:20 PM CDT Appointment Outpatient Procedure Center in [address] [phone] Suri Izquierdo M.D. [address] [place] [phone] 01/11/2024 9:15 AM CDT Ancillary Procedure Department of Ophthalmology in [place], [place] [address] [place] [phone] Wero Gasca M.D. [address] [place] [phone] 01/11/2024 9:45 AM CDT Office Visit Department of Ophthalmology in [place], [place] [address] [place] [address] Doc Ferris M.D. [address] [place] [address] Scheduled Referrals Name Type Priority Associated Diagnoses [...]
--- OUTSIDE RECORDS SUMMARY | 2023-12-20 10:10 | XMS_ITS | Encounter Summary ---
Author Organization [facility] Address [address] [place] [address] Care Team Providers Care Diagnostic Cardiac Sonographer Name Role Phone Unavailable Primary Care Provider Unavailabl e Reason for Referral * Outpatient (Routine) - Authorized Specialty Diagnoses / Procedures Referred By Janeth phillips Referred To Contact Vascular Medicine Diagnoses Ischemia Retina Occlusion Carotid Artery Left Suri Izquierdo M.D. 200 [place] [address] [facility] Referral ID Status Reason Start Date Expiration Date V isits Requested Visits Authorized [id number] Authorized 11/03/2023 05/04/2025 1 1 * Outpatient (Routine) - Closed Specialty Diagnoses / Procedures Referred By Janeth phillips Referred To Contact Ophthalmology Suri Izquierdo M.D. 200 [place] [address] [facility] Referral ID Status Reason Start Date Expiration Date Visits Re quested Visits Authorized [id number] Closed 11/02/2023 05/03/2025 1 1 Reason for Visit * Reason Comments Occlusion Carotid Artery Lef * Outpatient (Routine) - Closed Specialty Diagnoses / Procedures Referred By Janeth phillips Referred To Contact Ophthalmology Suri Izquierdo M.D. 200 [place] [address] [facility] Referral ID Status Reason Start Date Expiration Date Visits Re quested Visits Authorized [id number] Closed 10/23/2023 04/23/2025 1 1 Encounter Details Date Type Department Care Team (Latest Contact Info) Description 11/02/2023 12:45 PM CDT Office Visit Department of Ophthalmology in [place], [place] [address] [place] [phone] Suri Izquierdo M.D. [address] [place] [phone] Hemorrhage Vitreous Left (HCC) (Primary Dx); Ischemia Retina; Occlusion Carotid Artery Left Social History Tobacco Use Types Packs/Day Years Used Date Smoking Tobacco: Unknown [facility] Utilities Answer Date Recorded In [...] understanding.He is scheduled with neurology here at [place] in December. The patient plans to schedule an appointment with his vascular physician in the [facility], and I have placed a referral [...] last injection with OCT macula. Injection Location: [place] Hold injection slot in [place]? Left eye Staffed with Dr. Herrera on 10/19/23 Patient discussed and seen with Dr. Calderon today. Suri Izquierdo M.D. PGY-2 Ophthalmology Resident documented in this encounter Plan of Treatment Upcoming Encounters Date Type Department Care Team (Latest Contact Info) Description 12/27/2023 1:20 PM CDT Appointment Outpatient Procedure Center in [address] [phone] Suri Izquierdo M.D. [address] [place] [address] 01/11/2024 9:15 AM CDT Ancillary Procedure Department of Ophthalmology in [place], [place] [address] [place] [phone] Wero Gasca M.D. [address] [place] [phone] 01/11/2024 9:45 AM CDT Office Visit Department of Ophthalmology in [place], [place] [address] [place] [address] Doc Ferris M.D. [address] [place] [address] Scheduled Referrals Name Type Priority Associated Diagnoses [...]
--- OUTSIDE RECORDS SUMMARY | 2023-12-20 10:10 | XMS_ITS | Encounter Summary ---
Author Organization [facility] Address [address] [place] [address] Care Team Providers Care Leadership Program Internship Name Role Phone Unavailable Primary Care Provider Unavailabl e Encounter Details Date Type Department Care Team (Late st Contact Info) Description 11/30/2023 12:05 AM CDT Ancillary Procedure Department of Ophthalmology Social History Tobacco Use Types Packs/Day Years Used Date Smoking Tobacco: Unknown [facility] Utilities Answer Date Recorded In [...] CDT Appointment Outpatient Procedure Center in [address] [phone] Suri Izquierdo M.D. [address] [place] [address] 01/11/2024 9:15 AM CDT Ancillary Procedure Department of Ophthalmology in [place], [place] [address] [place] [address] Wero Gasca M.D. [address] [place] [phone] 01/11/2024 9:45 AM CDT Office Visit Department of Ophthalmology in [place], [place] [address] [place] [address] Doc Ferris M.D. [address] [place] [phone] documented as of this encounter Procedures Procedure Name Priority Date/Time Associated Diagnosis Comments OPHTHALMOLOGY IMAGE EXAM Routine 11/30/2023 12:05 AM CDT documented in this encounter Results * Eyes US-Eye [id number] Image Exam (11/30/2023 12:05 AM CDT) Narrative [...]
--- OUTSIDE RECORDS SUMMARY | 2023-12-20 10:10 | XMS_ITS | Encounter Summary ---
Author Organization [facility] Address [address] [place] [address] Care Team Providers Care Dairy Inspector Name Role Phone Unavailable Primary Care Provider Unavailabl e Encounter Details Date Type Department Care Team (Late st Contact Info) Description 10/23/2023 Orders Only Department of Ophthalmology in [place], [place] [address] [place] [phone] Anabel Lang, C.O.A. [address] [place] [address] Glaucoma Neovascular (Primary Dx) Social History Tobacco Use Types Packs/Day Years Used Date Smoking Tobacco: Unknown [facility] Utilities Answer Date Recorded In [...] your living situation today? I have a [facility] place to live 07/25/2023 Sex and Gender Information Value Date Recorded Sex Assigned at Male 07/25/2023 8:23 PM CDT Gender Identity Male 07/25/2023 8:23 PM CDT Sexual Orientation Straight 07/25/2023 8: 23 PM CDT documented as of this encounter Plan of Treatment Upcoming Encounters Date Type Department Care Team (Latest Contact Info) Description 12/27/2023 1:20 PM CDT Appointment Outpatient Procedure Center in [address] [phone] Suri Izquierdo M.D. [address] [place] [phone] 01/11/2024 9:15 AM CDT Ancillary Procedure Department of Ophthalmology in [place], [place] [address] [place] [address] Wero Gasca M.D. [address] [place] [phone] 01/11/2024 9:45 AM CDT Office Visit Department of Ophthalmology in [place], [place] [address] [place] [phone] Doc Ferris M.D. [address] [place] [phone] documented as of this encounter Visit Diagnoses Diagnosis Glaucoma Neovascular- Primary documented in this encounter
--- OUTSIDE RECORDS SUMMARY | 2023-12-20 10:10 | XMS_ITS | Encounter Summary ---
Author Organization [facility] Address [address] [place] [address] Care Team Providers Care Veterinarian Helper Name Role Phone Unavailable Primary Care Provider Unavailabl e Reason for Referral * Outpatient (Routine) - Authorized Specialty Diagnoses / Procedures Referred By Janeth phillips Referred To Contact Diagnoses Glaucoma Neovascular Procedures Intravitreal Injection, Pharmacologic Agent - OS - Left Eye Suri Izquierdo M.D. 200 [place] [address] [facility] Referral ID Status Reason Start Date Expiration Date V isits Requested Visits Authorized [id number] Authorized 10/19/2023 10/18/2024 5 5 * Outpatient (Routine) - Authorized Specialty Diagnoses / Procedures Referred By Janeth phillips Referred To Contact Ophthalmology Suri Izquierdo M.D. 200 [place] [address] [facility] Referral ID Status Reason Start Date Expiration Date V isits Requested Visits Authorized [id number] Authorized 10/19/2023 04/19/2025 1 1 Scheduling Instructions Left Eye: Avastin Left eye for Other: Neovascular glaucoma within 1 week. Follow-up for 3 more injections of Avastin in the left eye every 4 - weeks. Followup: 4 - 5 weeks after last injection with OCT macula. Injection Location: [place] Hold injection slot in [place]? Left eye Encounter Details Date Type Department Care Team (Late st Contact Info) Description 10/19/2023 Orders Only Department of Ophthalmology in [place], [place] [address] [place] [address] Juan David Cabrales M.D. [address] [place] [address] Glaucoma Neovascular (Primary Dx); Hemorrhage Vitreous Left (HCC) Social History Tobacco Use Types Packs/Day Years Used Date Smoking Tobacco: Unknown [facility] Utilities Answer Date Recorded In the [...] PM CDT Appointment Outpatient Procedure Center in [address] [phone] Suri Izquierdo M.D. [address] [place] [address] 01/11/2024 9:15 AM CDT Ancillary Procedure Department of Ophthalmology in [place], [place] [address] [place] [address] Wero Gasca M.D. [address] [place] [address] 01/11/2024 9:45 AM CDT Office Visit Department of Ophthalmology in [place], [place] [address] [place] [address] Doc Ferris M.D. [address] [place] [address] Scheduled Orders Name Type Priority Associated Diagnoses [...] 25 mg/mL ??Route: intravitreal, Site: Left Eye ??[facility]: 36400-655-97 Balanced salt solution irrigation to injected eye [...] motion or count fingers. Avastin, LEFT eye. [facility] [id number] LOT [id number] EXP 01/06/2024 First injection in [place]. ??Poor visual potential. ??Neovascular glaucoma and high intraocular pressure. ??Would consider cyclophotocoagulation as patient is having daily headaches likely related to uncontrolled intraocular pressure on maximal medical treatment. ?? No injection complications. Nicholas Carlos MD Suri Izquierdo M.D. OPH CLINIC P ROCEDURES documented in this encounter Visit Diagnoses Diagnosis Glaucoma Neovascular- Primary Hemorrhage Vitreous Left (HCC) Glaucoma Neovascular documented in this encounter
--- OUTSIDE RECORDS SUMMARY | 2023-12-20 10:10 | XMS_ITS | Encounter Summary ---
Author Organization [facility] Address [address] [place] [phone] Care Team Providers Care Geosciences Associate Professor Name Role Phone Unavailable Primary Care Provider Unavailabl e Reason for Referral * Outpatient (Routine) - Closed Specialty Diagnoses / Procedures Referred By Janeth phillips Referred To Contact Ophthalmology Suri Izquierdo M.D. [address] [place] [phone] [facility] Referral ID Status Reason Start Date Expiration Date Visits Re quested Visits Authorized [id number] Closed 11/09/2023 05/10/2025 1 1 Reason for Visit * Outpatient (Routine) - Closed Specialty Diagnoses / Procedures Referred By Janeth phillips Referred To Contact Ophthalmology Suri Izquierdo M.D. [address] [place] [phone] [facility] Referral ID Status Reason Start Date Expiration Date Visits Re quested Visits Authorized [id number] Closed 11/02/2023 05/03/2025 1 1 Encounter Details Date Type Department Care Team (Latest Contact Info) Description 11/09/2023 12:00 PM CDT Office Visit Department of Ophthalmology in [place], [place] [address] [place] [phone] Suri Izquierdo M.D. [address] [place] [phone] Hemorrhage Vitreous Left (HCC) (Primary Dx); Glaucoma Neovascular; Occlusion Carotid Artery Left Social History Tobacco Use Types Packs/Day Years Used Date Smoking Tobacco: Unknown [facility] Utilities Answer Date Recorded In the past [...] He is scheduled with neurology here at [place] in December and is seeing his geotechnical laboratory technician early next week. PLAN: - Continue Avastin [...] last injection with OCT macula. Injection Location: [place] Hold injection slot in [place]? Left eye Injection plan staffed with Dr. Herrera on 10/19/23 Patient discussed and seen with Dr. Benton today, 11/09/23. Suri Izquierdo M.D. PGY-2 Ophthalmology Resident documented in this encounter Plan of Treatment Upcoming Encounters Date Type Department Care Team (Latest Contact Info) Description 12/27/2023 1:20 PM CDT Appointment Outpatient Procedure Center in [address] [phone] Suri Izquierdo M.D. [address] [place] [phone] 01/11/2024 9:15 AM CDT Ancillary Procedure Department of Ophthalmology in [place], [place] [address] [place] [phone] Wero Gasca M.D. [address] [place] [phone] 01/11/2024 9:45 AM CDT Office Visit Department of Ophthalmology in [place], [place] [address] [place] [phone] Doc Ferris M.D. [address] [place] [phone] Scheduled Orders Name Type Priority Associated Diagnoses [...] otherwise attached, no mass noted. JH Suri VIGIL ND OPHTHALMOLGY NON-IMAGING ORDERS documented in this encounter Visit Diagnoses Diagnosis Hemorrhage Vitreous Left (HCC)- Primary Glaucoma Neovascular Occlusion Carotid Artery Left Hemorrhage Vitreous Left (HCC) documented in this encounter
--- OUTSIDE RECORDS SUMMARY | 2023-12-20 10:10 | XMS_ITS | Encounter Summary ---
Author Organization [facility] Address [address] [place] [address] Care Team Providers Care Casino Cage Manager Name Role Phone Unavailable Primary Care Provider Unavailabl e Encounter Details Date Type Department Care Team (Latest Contact Info) Description 10/19/2023 Clinical Communication Department of Ophthalmology in [place], [place] [address] [place] [address] Suri Izquierdo M.D. [address] [place] [phone] Social History Tobacco Use Types Packs/Day Years [...] CDT Appointment Outpatient Procedure Center in [address] [phone] Suri zIquierdo M.D. [address] [place] [phone] 01/11/2024 9:15 AM CDT Ancillary Procedure Department of Ophthalmology in [place], [place] [address] [place] [phone] Wero Gasca M.D. [address] [place] [phone] 01/11/2024 9:45 AM CDT Office Visit Department of Ophthalmology in [place], [place] [address] [place] [phone] Doc Ferris M.D. [address] [place] [phone] documented as of this encounter Visit Diagnoses Not on filedocumented in this encounter
--- OUTSIDE RECORDS SUMMARY | 2023-12-20 10:10 | XMS_ITS | Encounter Summary ---
Author Organization [facility] Address [address] [place] [address] Care Team Providers Care Ship Harbor Pilot Name Role Phone Unavailable Primary Care Provider Unavailabl e Reason for Referral * Outpatient (Routine) - Authorized Specialty Diagnoses / Procedures Referred By Jaenth pihllips Referred To Contact Diagnoses Glaucoma Neovascular Procedures Intravitreal Injection, Pharmacologic Agent - OS - Left Eye Suri Izquierdo M.D. 200 [place] [phone] [facility] Region Referral ID Status Reason Start Date Expiration Date V isits Requested Visits Authorized [id number] Authorized 10/19/2023 10/18/2024 5 5 Reason for Visit * Outpatient (Routine) - Authorized Specialty Diagnoses / Procedures Referred By Janeth phillips Referred To Contact Diagnoses Glaucoma Neovascular Procedures Intravitreal Injection, Pharmacologic Agent - OS - Left Eye Suri Izquierdo M.D. [address] [place] [address] [facility] Region Referral ID Status Reason Start Date Expiration Date V isits Requested Visits Authorized [id number] Authorized 10/19/2023 10/18/2024 5 5 Encounter Details Date Type Department Care Team (Latest Contact Info) Description 11/22/2023 9:02 AM CDT - 11/22/2023 11:59 PM CDT Hospital Encounter Outpatient Procedure Center in [place] [address] [place] [phone] Suri Izquierdo M.D. [address] [place] [phone] Glaucoma Neovascular Discharge Disposition: Home or Self Care Social History Tobacco Use Types Packs/Day Years Used Date Smoking Tobacco: Unknown [facility] Utilities Answer Date Recorded In [...] times a day. 5 mL 3 10/19/2023 dilTIAZem (Dilacor XR) 180 mg ER capsule Take 1 capsule by mouth daily. 11/13/2023 dorzolamide (Trusopt) 2 % ophthalmic solution Administer 1 drop into the left eye 2 (two) times a day. 10 mL 12 10/19/2023 Eliquis 5 mg tablet Take 5 mg by mouth 2 (two) times a day. furosemide (LASIX) 20 mg tablet Take 20 mg by mouth 2 (two) times a day. Klor-Con M20 20 mEq ER tablet Take by mouth 2 (two) times a day with meals. 11/14/2023 latanoprost (Xalatan) 0.005 % ophthalmic solution Administer 1 drop into both eyes at bedtime. 5 mL 3 11/02/2023 magnesium oxide 400 mg magnesium capsule Take 400 mg by mouth. 11/10/2022 mirtazapine (Remeron) 7.5 mg tablet Take 7.5 mg by mouth at bedtime. 11/15/2023 traMADoL (ULTRAM) 50 mg tablet Take 50 mg by mouth daily. 07/27/2023 Trelegy Ellipta 100-62.5-25 mcg inhaler 1 puff daily. documented as of this encounter Plan of Treatment Upcoming Encounters Date Type Department Care Team (Latest Contact Info) Description 12/27/2023 1:20 PM CDT Appointment Outpatient Procedure Center in [address] [phone] Suri Izquierdo M.D. [address] [place] [phone] 01/11/2024 9:15 AM CDT Ancillary Procedure Department of Ophthalmology in [place], [place] [address] [place] [phone] Wero Gasca M.D. [address] [place] [phone] 01/11/2024 9:45 AM CDT Office Visit Department of Ophthalmology in [place], [place] [address] [place] [address] Doc Ferris M.D. [address] [place] [phone] documented as of this encounter Procedures Procedure [...] mg/mL ??Route: intravitreal, Site: Left Eye ??[facility]: 95365-953-41 Balanced salt solution irrigation to injected eye [...] motion or count fingers. Avastin, LEFT eye. [facility] [id number] LOT [id number] EXP 01/06/2024 First injection in [place]. ??Poor [...]
--- OUTSIDE RECORDS SUMMARY | 2023-12-20 10:10 | XMS_ITS | Encounter Summary ---
Author Organization [facility] Address [address] [place] [address] Care Team Providers Care Fusing Line Inspector Name Role Phone Unavailable Primary Care Provider Unavailabl e Encounter Details Date Type Department Care Team (Latest Contact Info) Description 10/23/2023 2:54 PM CDT - 10/23/2023 11:59 PM CDT Hospital Encounter Outpatient Procedure Center in [place], [place] [address] [place] [address] Shelia Laughlin M.D. [address] [place] [address] Discharge Disposition: Home or Self Care Social History Tobacco Use Types Packs/Day Years Used Date Smoking Tobacco: Unknown [facility] Utilities Answer Date Recorded In the past 12 months has [facility] electric, gas, oil, or water [...] your living situation today? I have a [facility] place to live 07/25/2023 [...] by mouth 2 (two) times a day. magnesium oxide 400 mg magnesium capsule Take 400 mg by mouth. 11/10/2022 traMADoL (ULTRAM) 50 mg tablet Take 50 [...] PM CDT Appointment Outpatient Procedure Center in [address] [phone] Suri Izquierdo M.D. [address] [place] [address] 01/11/2024 9:15 AM CDT Ancillary Procedure Department of Ophthalmology in [place], [place] [address] [place] [phone] Wero Gasca M.D. [address] [place] [phone] 01/11/2024 9:45 AM CDT Office Visit Department of Ophthalmology in [place], [place] [address] [place] [phone] Doc Ferris M.D. [address] [place] [phone] documented as of this encounter Procedures Procedure [...] 25 mg/mL ??Route: intravitreal, Site: Left Eye ??[facility]: 60652-729-04 Balanced salt solution irrigation to injected eye [...] discussed and return schedule given if requested. LE [id number] Exp 01/06/24 Shelia Moody M.D. [facility] PRO CEDURES documented in this encounter Visit Diagnoses Not on filedocumented in this encounter
--- OUTSIDE RECORDS SUMMARY | 2023-12-20 10:10 | XMS_ITS | Encounter Summary ---
Author Organization [facility] Address [address] [place] [address] Care Team Providers Care Incident Response Lead Name Role Phone Unavailable Primary Care Provider Unavailabl e Reason for Referral * Outpatient (Routine) - Authorized Specialty Diagnoses / Procedures Referred By Janeth phillips Referred To Contact Diagnoses Glaucoma Neovascular Procedures Intravitreal Injection, Pharmacologic Agent - OS - Left Eye Suri Izquierdo M.D. [address] [place] [address] [facility] Region Referral ID Status Reason Start Date Expiration Date V isits Requested Visits Authorized [id number] Authorized 10/19/2023 10/18/2024 5 5 Reason for Visit * Outpatient (Routine) - Authorized Specialty Diagnoses / Procedures Referred By Janeth phillips Referred To Contact Diagnoses Glaucoma Neovascular Procedures Intravitreal Injection, Pharmacologic Agent - OS - Left Eye Suri Izquierdo M.D. [address] [place] [address] [facility] Region Referral ID Status Reason Start Date Expiration Date V isits Requested Visits Authorized [id number] Authorized 10/19/2023 10/18/2024 5 5 Encounter Details Date Type Department Care Team (Latest Contact Info) Description 10/23/2023 1:51 PM CDT - 10/23/2023 2:53 PM CDT Hospital Encounter Outpatient Procedure Center in [place], [place] [address] [place] [address] Suri Izquierdo M.D. [address] [place] [address] Glaucoma Neovascular Discharge Disposition: Home or Self Care Social History Tobacco Use Types Packs/Day Years Used Date Smoking Tobacco: Unknown [facility] Utilities Answer Date Recorded In the past 12 months has th e [employer] gas, oil, or water [employer] threatened to shut off services in your [...] PM CDT Appointment Outpatient Procedure Center in [address] [phone] Suri Izquierdo M.D. [address] [place] [phone] 01/11/2024 9:15 AM CDT Ancillary Procedure Department of Ophthalmology in [place], [place] [address] [place] [phone] Wero Gasca M.D. [address] [place] [address] 01/11/2024 9:45 AM CDT Office Visit Department of Ophthalmology in [place], [place] [address] [place] [phone] Doc Ferris M.D. [address] [place] [phone] documented as of this encounter Procedures Procedure [...] mg/mL ??Route: intravitreal, Site: Left Eye ??[facility]: [id number] Balanced salt solution irrigation to injected eye [...] and return schedule given if requested. MEHRDAD [id number] Exp 01/06/24 Shelia Moody M.D. OPHTH CLINIC [...]
--- OUTSIDE RECORDS SUMMARY | 2023-12-20 10:10 | XMS_ITS | Encounter Summary ---
Author Organization [facility] Address [address] [place] [address] Care Team Providers Care Product Tester Fiberglass Name Role Phone Unavailable Primary Care Provider Unavailabl e Reason for Visit * Outpatient (Routine) - Closed Specialty Diagnoses / Procedures Referred By Janeth t Referred To Contact Ophthalmology Suri Izquierdo M.D. [address] [place] [phone] [facility] Referral ID Status Reason Start Date Expiration Date Visits Re quested Visits Authorized [id number] Closed 11/09/2023 05/10/2025 1 1 Encounter Details Date Type Department Care Team (Latest Contact Info) Description 11/30/2023 1:30 PM CDT Office Visit Department of Ophthalmology in [place], [place] [address] [place] [phone] Suri Izquierdo M.D. [address] [place] [phone] Hemorrhage Vitreous Left (HCC) (Primary Dx); Retinal [...] due for his 3rd injection in the carlin vazquez series. 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 He is also scheduled with neurology here at [place] in December and saw his local aerial lineman earlier this month. PLAN: - Pre-operative evaluation [...] last injection with OCT macula. Injection Location: [place] Hold injection slot in [place]? Left eye Injection plan staffed with Dr. Herrera on 10/19/23 Patient discussed and seen with Dr. Jara and Dr. Ferris today, 11/30/23. Suri Izquierdo M.D. PGY-2 Ophthalmology Resident documented in this encounter Plan of Treatment Upcoming Encounters Date Type Department Care Team (Latest Contact Info) Description 12/27/2023 1:20 PM CDT Appointment Outpatient Procedure Center in [address] [phone] Suri Izquierdo M.D. [address] [place] [address] 01/11/2024 9:15 AM CDT Ancillary Procedure Department of Ophthalmology in [place], [place] [address] [place] [phone] Wero Gasca M.D. [address] [place] [address] 01/11/2024 9:45 AM CDT Office Visit Department of Ophthalmology in [place], [place] [address] [place] [address] Doc Ferris M.D. 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
--- OUTSIDE RECORDS SUMMARY | 2023-12-20 10:11 | XMS_ITS | Clinical Summary ---
Author Organization [facility] Address [place], [place] [address] Care Team Providers Care Cancer Program Director Name Role Phone Marcio Gonzalez MD Primary Care Provider [phone] Allergies Active Allergy Reactions Criticality Noted Date [...] 2nd choice. 18 Each 5 3 Active acetic acid 0.25% 0.25 % irrigation APPLY 5 MINUTE SOAK TO WOUND EVERY OTHER DAY AND NEEDED FOLLOWING WOUND CARE ORDERS. 3 Active ammonium lactate 12% topical (LACHYDRIN) 12 % lotion APPLY TO LEGS AND FEET ONCE DAILY. 3 Active magnesium oxide (MAG-OX 400) 400 [...] use: Daily 1 Each 11 3 Active aspirin chewable 81 mg chewable tablet Chew 81 mg by mouth once daily with a meal. Active brimonidine (ALPHAGAN) 0.2 % ophthalmic solution Place 1 Drop into left eye two times daily. Active apixaban (ELIQUIS) 5 mg tabletIndications: Paroxysmal atrial fibrillation (HC) Take 1 Tablet (5 mg) by mouth two times daily. 180 Tablet 2 4 Active potassium chloride (Klor-Con M20) 20 mEq extended-release tablet (part/cryst)Indica tions:Edema of right lower extremity TAKE 1 TABLET (20 MEQ) BY MOUTH TWO TIMES DAILY WITH MEALS. 180 Tablet 4 Active atorvastatin (LIPITOR) 40 mg tabletIndications: Other hyperlipidemia TAKE 1 TABLET BY MOUTH AT BEDTIME 90 Tablet 4 Active furosemide (LASIX) 20 mg tabletIndications: Edema of right lower extremity TAKE 1 TABLET BY MOUTH TWO TIMES DAILY. 180 Tablet 4 Active fluticasone sul-vkkqcjdmwmxq-b ilanterol (Trelegy Ellipta) 100-62.5-25 mcg inhalerIndications :Panlobular emphysema (HC) INHALE 1 PUFF BY MOUTH EVERY DAY 180 Each 1 4 Active latanoprost (XALATAN) 0.005 % ophthalmic solution Place 1 Drop into both eyes. 4 Active dorzolamide (TRUSOPT) 2 % ophthalmic solution INSTILL 1 DROP INTO LEFT EYE TWICE A DAY Active atropine (ISOPTO ATROPINE) 1 % ophthalmic solution Place 1 Drop into left eye two times daily. 4 Active dilTIAZem (DILACOR XR; DILTIA XT) 180 mg Extended-Release capsuleIndications :Paroxysmal atrial fibrillation (HC) Take 1 Capsule (180 mg) by mouth once daily. 90 Capsule 3 4 Active mirtazapine (REMERON) 7.5 mg tabletIndications: Chronic insomnia Take 1 Tablet (7.5 mg) by mouth at bedtime. Please take at 7PM 60 Tablet 4 Active traMADoL (ULTRAM) 50 mg tabletIndications: Right leg pain TAKE 1 TABLET BY MOUTH DAILY NEEDED FOR WOUND PAIN OR BACK PAIN 30 Tablet 4 Active traMADoL (ULTRAM) 50 mg tabletIndications: Right leg pain TAKE 1 TABLET BY MOUTH DAILY NEEDED FOR WOUND PAIN OR BACK PAIN 30 Tablet 4 024 Discontinued Active Problems Problem Noted Date Diagnosed Date History of stroke 07/27/2023 Overview (07/27/2023): left MCA territory ischemic stroke, pmh of [...] Right leg pain due to wound 05/08/2022 Overview (06/18/2023): Tramadol and Gabapentin are to treat neuropathic [...] Depression, recurrent 08/08/2021 Acute ischemic stroke 11/18/2018 Overview (11/18/2018): Date of stroke was 11/09/18 Word Finding Difficulties Recommended follow up at [facility] Stroke [facility]. Speech therapy, OT, and PHYSICAL THERAPY It was recommended he stay on Plavix for 90 days and aspirin 81 mg for life. Morbid obesity with BMI of 40.0-44.9, adult 09/07 Fatty liver 09/23/2018 Lung nodule 05/02/2018 Overview (02/09/2022): Due for a follow up CT of [...] DDD (degenerative disc disease), lumbar 05/19/19 16 Overview (07/27/2023): He has chronic low back pain due to this. Adenomatous colon polyp 07/11/2013 Overview (07/11/2013): Colonoscopy 07/2013 polyp repeat in 5 years [place] 06/30/2012 AHI-12 07/07/2012 Resolved Problems Problem Noted Date Diagnosed Date Resolved Date medical terminologist (current) use of anticoagulants 07/07/2009 09/21/2010 Overview (07/27/2009): INR Goal Range: 1.8 - 2.5 Encounters Date Type Department Care Team Description 12/18/2023 Refill [facility] [address] [place] [address] Marcio Gonzalez MD Refill Request (Tramadol) 12/04/2023 3:30 PM CDT Office Visit [facility] [address] [place] [address] Ricarda Bautista MD Follow Up (F/U visit/OV,FU CT on chart from [place] no new imaging/PT states feeling alright/Losing sight in eye - might be blockage of artery /Stated all medications are up to date) 12/04/2023 Travel 11/22/2023 Telephone [facility] [address] [place] [address] Ricarda Bautista MD Appointment Request 11/13/2023 10:00 AM CDT Office Visit [facility] [address] [place] [phone] Radha Carlin MBBS CV General Cardiology Est (IN PERSON - 4MO ROUTINE CHECK//PCP:Marcio Gonzalez MD/) 11/13/2023 Travel 11/12/2023 Refill [facility] [address] [place] [address] Dorian Draper MD Refill Request (Mirtazapine 7.5mg tablet) 11/12/2023 Telephone [facility] [address], [place] [address] Ricarda Bautista MD Appointment Request 11/12/2023 Refill [facility] [address] [place] [address] Marcio Gonzalez MD Refill Request (Klor-con M20, Atorvastatin, Furosemide, Trelegy Ellipta, Tramadol) 10/22/2023 Refill [facility] [address] [place] [address] Dorian Draper MD Refill Request (Mirtazapine 7.5mg) 10/21/2023 Refill [facility] [address] [place] [address] Marcio Gonzalez MD Refill Request (Tramadol) 09/20/2023 Refill [facility] [address] [place] [address] Marcio Gonzalez MD Refill Request (Tramadol) from Last 3 Months Immunizations Name Administration Dates Next Due COVID-19 VACCINE SPIKEVAX (M ODERNA 50MCG/0.5ML) 12YO+ PFS 01/17/2023 COVID-19 vaccine (GetJob 30mcg/0.3mL) P F, MDV 06/22/2020,06/01/2020 Influenza, High-dose [...] CDT Respiratory Rate 18 05/02/2023 10:57 AM CONDITIONING ROOM WORKER Oxygen Saturation 96% 12/04/2023 3:35 PM CDT Inhaled Oxygen Concentration - - Weight 132 kg (290 lb 14.4 oz) 12/04/2023 3:35 P M CDT Height 185.4 cm (6' 1) 12/04/2023 3:35 PM CDT Body Mass Index 38.38 12/04/2023 3:35 PM CDT Plan of Treatment Upcoming Encounters Date Type Department Care Team (Late st Contact Info) Description 01/01/2024 10:00 AM CDT Office Visit [facility] [address] [place] [address] Marcio Gonzalez MD [address] [place] [address] Health Maintenance Due Date Last Done Comments Zoster (shingles) series for age 50+ (1 of 2) 12/15/1995 RSV vaccine for adults or (1 - 1-dose 60+ series) 2005 Tetanus booster 03/16/2018 03/16/2008, 06/08, 05/22/[address] (for lung CA) ag e 50-80 11/01/2022 11/01/2021, 04/23/2018 Medicare Wellness for age 65+ 11/09/2023, 02/22/2021, 10/29/2019, Additional history exists Depression screening for age 12+ 11/10/2023 11/09/2022, 11/08/2022, 02/22/2021, Additional history exists COVID-19 vaccine series ( season) 2023 01/17/2023, 01/10/2022, 08/23/2021, Additional history exists Influenza for age 65+ 12/09/2023 01/17/2023 , 01/10/2022, 02/22/2021, Additional history exists BMI (ht and wt on same day) for age 18+ 12/03/2024 12/04/2023, 05/22/2023, 02/27/2023, Additional history exists Tdap Completed 03/16/2008, 07/04/2006 Pneumococcal series for age 65+ Completed 05/19/2015, 06/05/2013, 03/14/2000 Hepatitis C screening for ag e 18-79 Completed 02/08/2022 Medical Devices Implanted Type Area Radiological Equipment Specialist Device Identifier Shelf Expiration Date Model / Serial / Lot Tissue Pericardium 0.8x8cm [employer] Bovine - [id number] Implanted:Qty: 1 on 02/13/2022 by Kael Hernandez MD at [facility] Cv Implants Right: Groin [employer] 02/27/2022 PFP 0.8X8 / / [id number] Stent Aaa [id number] Excluder Ib - [id number] Implanted:Qty: 1 on 02/13/2022 by Kael Hernandez MD at [facility] Right: Iliac Artery [employer] 2024 [id number] / [id number] / Stent Aaa [id number] Excluder Iic - [id number] Implanted:Qty: 1 on 02/13/2022 by Kael Hernandez MD at [facility] Right: Iliac Artery [employer] 04/20/2024 [id number] / [id number] / Procedures Procedure Name Priority Date/Time Associated [...] QT 408 ms QTc 417 ms P Surry 76 degrees R Surry 46 degrees T Surry 50 degrees 11/13/2023 10:4 4 AM CDT 11/13/2023 5:50 PM CDT Radha SEWELL EKG ORD * ANTI HCV (02/08/2022 11:20 AM CDT) HEPATITIS C ANTIBODY Non-React mandie Non-React mandie 02/09/2022 2:56 PM CDT [facility] [employer] [facility] Comment:Antibodies to HCV no t detected; does not exclude the possibility of exposure to HCV. Blood BLOOD SPECIMEN / Unknown Venipuncture / Unknown 02/08/2022 11:20 AM CDT 02/08/2022 11:27 AM CDT Marcio Gonzalez MD SEND OUTS [facility] [employer] [facility] 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
--- OUTSIDE RECORDS SUMMARY | 2023-12-20 10:11 | XMS_ITS | Encounter Summary ---
Author Organization [facility] Address [address] [place] [address] Care Team Providers Care Channel Manager Name Role Phone Unavailable Primary Care Provider Unavailabl e Encounter Details Date Type Department Care Team (Latest Contact Info) Description 10/18/2023 Clinical Communication Department of Ophthalmology in [place], [place] [address] [place] [address] Provider, Unknown Social History Tobacco Use Types Packs/Day Years Used Date Smoking Tobacco: Unknown [facility] Utilities Answer Date Recorded In the past 12 months has [facility] electric, gas, oil, or water [...] CDT Appointment Outpatient Procedure Center in [address] [phone] Suri Izquierdo M.D. [address] [place] [address] 01/11/2024 9:15 AM CDT Ancillary Procedure Department of Ophthalmology in [place], [place] [address] [place] [address] Wero Gasca M.D. [address] [place] [phone] 01/11/2024 9:45 AM CDT Office Visit Department of Ophthalmology in [place], [place] [address] [place] [phone] Doc Ferris M.D. [address] [place] [phone] documented as of this encounter Visit Diagnoses Not on filedocumented in this encounter
--- OUTSIDE RECORDS SUMMARY | 2023-12-20 10:11 | XMS_ITS | Encounter Summary ---
Author Organization [facility] Address [address] [place] [address] Care Team Providers Care Knockdown Worker Name Role Phone Unavailable Primary Care Provider Unavailabl e Encounter Details Date Type Department Care Team (Latest Contact Info) Description 09/11/2023 Clinical Communication Department of Ophthalmology in [place], [place] [address] [place] [address] Rachel Collins M.D., Ph.D. [address] [place] [address] Social History Tobacco Use Types Packs/Day Years Used Date Smoking Tobacco: Unknown [facility] Utilities Answer Date Recorded In [...] your living situation today? I have a [facility] place to live 07/25/2023 Sex and [...] CDT Appointment Outpatient Procedure Center in [address] [phone] Suri Izquierdo M.D. [address] [place] [phone] 01/11/2024 9:15 AM CDT Ancillary Procedure Department of Ophthalmology in [place], [place] [address] [place] [phone] Wero Gasca M.D. [address] [place] [phone] 01/11/2024 9:45 AM CDT Office Visit Department of Ophthalmology in [place], [place] [address] [place] [phone] Doc Ferris M.D. [address] [place] [phone] documented as of this encounter Visit Diagnoses Not on filedocumented in this encounter
--- OUTSIDE RECORDS SUMMARY | 2023-12-20 10:11 | XMS_ITS | Encounter Summary ---
Author Organization [facility] Address [address] [place] [address] Care Team Providers Care Workforce Staffing Advisor Name Role Phone Unavailable Primary Care Provider Unavailabl e Encounter Details Date Type Department Care Team (Latest Contact Info) Description 10/19/2023 2:00 PM CDT Ancillary Procedure Department of Ophthalmology in [place], [place] [address] [place] [address] Suri Izquierdo M.D. [address] [place] [address] Glaucoma Neovascular; Hemorrhage Vitreous Left (HCC) Social History Tobacco Use Types Packs/Day Years Used Date Smoking Tobacco: Unknown [facility] Utilities Answer Date Recorded In the [...] CDT Appointment Outpatient Procedure Center in [address] [phone] Suri Izquierdo M.D. [address] [place] [phone] 01/11/2024 9:15 AM CDT Ancillary Procedure Department of Ophthalmology in [place], [place] [address] [place] [phone] Wero Gasca M.D. [address] [place] [phone] 01/11/2024 9:45 AM CDT Office Visit Department of Ophthalmology in [place], [place] [address] [place] [phone] Doc Ferris M.D. [address] [place] [phone] documented as of this encounter Procedures Procedure [...] appears grossly attached, no mass noted. [facility] O[facility] NON-IMAGING ORDERS documented in this encounter Visit Diagnoses Diagnosis Glaucoma Neovascular Hemorrhage Vitreous Left (HCC) documented in this encounter
--- OUTSIDE RECORDS SUMMARY | 2023-12-20 10:11 | XMS_ITS | Encounter Summary ---
Author Organization [facility] Address [address] [place] [address] Care Team Providers Care Auto Claims Adjuster Name Role Phone Unavailable Primary Care Provider Unavailabl e Encounter Details Date Type Department Care Team (Latest Contact Info) Description 10/16/2023 Clinical Communication Department of Ophthalmology in [place] [address] [place] [address] Red Gallego M.D. [address] [place] [phone] Social History Tobacco Use Types Packs/Day Years Used Date Smoking Tobacco: Unknown [facility] Utilities Answer Date Recorded In the past 12 months has [facility] electric, gas, oil, or water company threatened [...] your living situation today? I have a [facility] place to live 07/25/2023 Sex and Gender Information Value Date Recorded Sex Assigned at Male 07/25/2023 8:23 PM CDT Gender Identity Male 07/25/2023 8:23 PM CDT Sexual Orientation Straight 07/25/2023 8: 23 PM CDT documented as of this encounter Plan of Treatment Upcoming Encounters Date Type Department Care Team (Latest Contact Info) Description 12/27/2023 1:20 PM CDT Appointment Outpatient Procedure Center in [address] [phone] Suri Izquierdo M.D. 200 [place] [phone] 01/11/2024 9:15 AM CDT Ancillary Procedure Department of Ophthalmology in [place], [place] [address] [place] [address] Wero Gasca M.D. [address] [place] [phone] 01/11/2024 9:45 AM CDT Office Visit Department of Ophthalmology in [place], [place] [address] [place] [phone] Doc Ferris M.D. 200 [place] [phone] documented as of this encounter Visit Diagnoses Not on filedocumented in this encounter
--- OUTSIDE RECORDS SUMMARY | 2023-12-20 10:11 | XMS_ITS | Encounter Summary ---
Author Organization [facility] Address [address] [place] [address] Care Team Providers Care Development Vice President Name Role Phone Unavailable Primary Care Provider Unavailabl e Reason for Referral * Outpatient (Routine) - Authorized Specialty Diagnoses / Procedures Referred By Contac t Referred To Contact Diagnoses Ischemia Retina Procedures Intravitreal Injection Gonda Appt Order - OS - Left Eye Rachel Collins M.D., Ph.D. [address] [place] [address] [facility] Referral ID Status Reason Start Date Expiration Date V isits Requested Visits Authorized [id number] Authorized 09/11/2023 09/10/2024 1 1 Encounter Details Date Type Department Care Team (Late st Contact Info) Description 09/11/2023 Orders Only Department of Ophthalmology in [place], [place] [address] [place] [phone] Anabel Lang C.O.A. [address] [place] [phone] Ischemia Retina (Primary Dx) Social History Tobacco [...] PM CDT Appointment Outpatient Procedure Center in [address] [phone] Suri Izquierdo M.D. 200 [place] [address] 01/11/2024 9:15 AM CDT Ancillary Procedure Department of Ophthalmology in [place], [place] [address] [place] [phone] Wero Gasca M.D. [address] [place] [phone] 01/11/2024 9:45 AM CDT Office Visit Department of Ophthalmology in [place], [place] [address] [place] [phone] Doc Ferris M.D. [address] [place] [phone] Scheduled Orders Name Type Priority Associated Diagnoses Orde r Schedule Intravitreal Injection Gonda Appt Order - OS - Left Eye Ophthalmology Routine Ischemia Retina 1 Occurrences starting 09/11/2023 until 12/11/2024 documented as of this encounter Visit Diagnoses Diagnosis Ischemia Retina- Primary documented in this encounter
--- OUTSIDE RECORDS SUMMARY | 2023-12-20 10:11 | XMS_ITS | Encounter Summary ---
Author Organization [facility] Address [address] [place] [address] Care Team Providers Care Machine Cage Maker Name Role Phone Unavailable Primary Care Provider Unavailabl e Reason for Referral * Outpatient (Routine) - Authorized Specialty Diagnoses / Procedures Referred By Janeth phillips Referred To Contact Vascular Medicine Diagnoses Glaucoma Neovascular Suri Izquierdo M.D. [address] [place] [address] [facility] Referral ID Status Reason Start Date Expiration Date V isits Requested Visits Authorized [id number] Authorized 10/19/2023 04/19/2025 1 1 * Outpatient (Routine) - Closed Specialty Diagnoses / Procedures Referred By Janeth phillips Referred To Contact Ophthalmology Suri Izquierdo M.D. [address] [place] [address] [facility] Referral ID Status Reason Start Date Expiration Date Visits Re quested Visits Authorized [id number] Closed 10/19/2023 04/19/2025 1 1 Reason for Visit * Appointment Request (Routine) - Closed Specialty Diagnoses / Procedures Referred By Janeth t Referred To Contact Ophthalmology Referral ID Status Reason Start Date Expiration Date Visits Re quested Visits Authorized [id number] Closed 10/18/2023 10/17/2024 1 1 Encounter Details Date Type Department Care Team (Latest Contact Info) Description 10/19/2023 10:30 AM CDT Comprehensive Visit Department of Ophthalmology in [place], [place] [address] [place] [address] Suri Izquierdo M.D. [address] [place] [address] Glaucoma Neovascular (Primary Dx); Hemorrhage Vitreous Left (HCC) Social History Tobacco Use Types Packs/Day Years Used Date Smoking Tobacco: Unknown [facility] Utilities Answer Date Recorded In the [...] a referral for vascular medicine here at [facility] if it is more convenient to group [...] last injection with OCT macula. Injection Location: [place] Hold injection slot in [place]? Left eye Staffed with Dr. Herrera. Patient [...] CDT Appointment Outpatient Procedure Center in [address] [phone] Suri Izquierdo M.D. [address] [place] [phone] 01/11/2024 9:15 AM CDT Ancillary Procedure Department of Ophthalmology in [place], [place] [address] [place] [phone] Wero Gasca M.D. [address] [place] [phone] 01/11/2024 9:45 AM CDT Office Visit Department of Ophthalmology in [place], [place] [address] [place] [phone] Doc Ferris M.D. [address] [place] [address], [place] [phone] Scheduled Referrals Name Type Priority Associated Diagnoses [...] M.D. [facility] [place] OPHTHALMOLGY NON-IMAGING ORDERS documented in this encounter Visit Diagnoses Diagnosis Glaucoma Neovascular- Primary Hemorrhage Vitreous Left (HCC) Glaucoma Neovascular Hemorrhage Vitreous Left (HCC) documented in this encounter
--- OUTSIDE RECORDS SUMMARY | 2023-12-20 10:11 | XMS_ITS | Encounter Summary ---
Author Organization [facility] Address [address] [place] [address] Care Team Providers Care Rabbit Fancier Name Role Phone Unavailable Primary Care Provider Unavailabl e Encounter Details Date Type Department Care Team (Late st Contact Info) Description 10/19/2023 Ancillary Procedure Department of Ophthalmology Social History Tobacco Use Types Packs/Day Years Used Date Smoking Tobacco: Unknown [facility] Utilities Answer Date Recorded In the past 12 months has th e electric, gas, oil, or water [employer] threatened to shut off services in your [...] your living situation today? I have a [facility] place to live 07/25/2023 Sex [...] CDT Appointment Outpatient Procedure Center in [address] [phone] Suri Izquierdo M.D. [address] [place] [address] 01/11/2024 9:15 AM CDT Ancillary Procedure Department of Ophthalmology in [place], [place] [address] [place] [address] Wero Gasca M.D. [address] [place] [phone] 01/11/2024 9:45 AM CDT Office Visit Department of Ophthalmology in [place], [place] [address] [place] [address] Doc Ferris M.D. [address] [place] [phone] documented as of this encounter Procedures Procedure Name Priority Date/Time Associated Diagnosis Comments OPHTHALMOLOGY IMAGE EXAM Routine 10/19/2023 12:00 AM CDT documented in this encounter Results * Eyes US-Eye L-Rcwj-Fqpzmfbhysmma Image Exam (10/19/2023 12:00 AM CDT) Narrative [...]
== END 2023-12-20 10:00 | disposition home or self-care (01) ==
LOC: WOUND 10:00
PROVIDERS: PCP Family Medicine; Visit Provider Nurse Practitioner Family
DX: I87.311 Chronic venous hypertension (idiopathic) with ulcer of right lower extremity (principal); I89.0 Lymphedema, not elsewhere classified; L97.212 Non-pressure chronic ulcer of right calf with fat layer exposed
CPT/HCPCS: 97597

== ENCOUNTER 2024-01-03 10:00 | Outpatient (CLI) | payer MEDICARE, BC, SELFPAY ==
--- OUTSIDE RECORDS SUMMARY | 2024-01-03 10:02 | XMS_ITS | Encounter Summary ---
Author Organization [facility] Address [address] [place] [address] Care Team Providers Care Packing Line Operator Name Role Phone Unavailable Primary Care Provider Unavailabl e Reason for Visit * Reason Onset Date Comments Pre-visit Intake 2023 Encounter Details Date Type Department Care Team (Latest Contact Info) Description 2023 12:15 PM CDT Clinical Communication Virtual Review in [place], [place] [address] [place] [address] Pre-visit Intake Social History Tobacco Use Types Packs/Day Years Used Date Smoking Tobacco: Every Day Cigarettes Smokeless Tobacco: Never [facility] Utilities Answer Date Recorded In [...] living situation today? I have a [facility] place to live 07/25/2023 Sex and Gender Information Value Date Recorded Sex Assigned at Male 07/25/2023 8:23 PM CDT Gender Identity Male 07/25/2023 8:23 PM CDT Sexual Orientation Straight 07/25/2023 8: 23 PM CDT documented as of this encounter Plan of Treatment Upcoming Encounters Date Type Department Care Team (Latest Contact Info) Description 01/11/2024 9:15 AM CDT Ancillary Procedure Department of Ophthalmology in [place], [place] [address] [place] [address] Wero Gasca M.D. [address] [place] [phone] 01/11/2024 9:45 AM CDT Office Visit Department of Ophthalmology in [place], [place] [address] [place] [address] Doc Ferris M.D. [address] [place] [phone] 01/24/2024 8:20 AM CDT Appointment Outpatient Procedure Center in [address] [phone] Suri Izquierdo M.D. [address] [place] [address] documented as of this encounter Visit Diagnoses Not on filedocumented in this encounter
--- OUTSIDE RECORDS SUMMARY | 2024-01-03 10:02 | XMS_ITS | Encounter Summary ---
Author Organization [facility] Address [address] [place] [address] Care Team Providers Care Supervisor Payroll Name Role Phone Unavailable Primary Care Provider Unavailabl e Encounter Details Date Type Department Care Team (Latest Contact Info) Description 12/07/2023 Clinical Communication Department of Ophthalmology in [place], [place] [address] [place] [address] Carl Petty Social History Tobacco Use Types Packs/Day Years Used Date Smoking Tobacco: Unknown [facility] Utilities Answer Date Recorded In the past [...] CDT Ancillary Procedure Department of Ophthalmology in [place], [place] [address] [place] [address] Wero Gacsa M.D. [address] [place] [phone] 01/11/2024 9:45 AM CDT Office Visit Department of Ophthalmology in [place], [place] [address] [place] [address] Doc Ferris M.D. [address] [place] [phone] 01/24/2024 8:20 AM CDT Appointment Outpatient Procedure Center in [address] [phone] Suri Izquierdo M.D. [address] [place] [address] documented as of this encounter Visit Diagnoses Not on filedocumented in this encounter
--- OUTSIDE RECORDS SUMMARY | 2024-01-03 10:02 | XMS_ITS | Encounter Summary ---
Author Organization [facility] Address [address] [place] [address] Care Team Providers Care Industrial Electrical Technician Name Role Phone Unavailable Primary Care Provider Unavailabl e Encounter Details Date Type Department Care Team (Latest Contact Info) Description 11/30/2023 1:00 PM CDT Ancillary Procedure Department of Ophthalmology in [place], [place] [address] [place] [address] Suri Izquierdo M.D. [address] [place] [address] Hemorrhage Vitreous Left (HCC) Social History Tobacco Use Types Packs/Day Years Used Date Smoking Tobacco: Unknown [facility] Utilities Answer Date Recorded In the past 12 months has [facility] electric, gas, oil, or water company [...] your living situation today? I have a [facility] place to live 07/25/2023 Sex and [...] CDT Ancillary Procedure Department of Ophthalmology in [place], [place] [address] [place] [address] Wero Gasca M.D. [address] [place] [address] 01/11/2024 9:45 AM CDT Office Visit Department of Ophthalmology in [place], [place] [address] [place] [address] Doc Ferris M.D. [address] [place] [address] 01/24/2024 8:20 AM CDT Appointment Outpatient Procedure Center in [address] [phone] Suri Izquierdo M.D. [address] [place] [address] documented as of this encounter Procedures Procedure [...]
--- OUTSIDE RECORDS SUMMARY | 2024-01-03 10:02 | XMS_ITS | Clinical Summary ---
Author Organization [facility] Address [address] [place] [address] Care Team Providers Care Ivory Carver Name Role Phone Unavailable Primary Care Provider Unavailabl e Source Comments Patient records contain information from all sites at [facility]. For routine questions regarding patient records, call [phone] during business hours, M-F 8:00 AM - 5:00 PM Central Time. Record requests for emergency care only can be directed to [phone] at any time.[facility] Allergies Active Allergy Reactions Criticality Noted Date [...] Encounters Date Type Department Care Team Description 12/27/2023 1:01 PM CDT - 12/27/2023 11:59 PM CDT Hospital Encounter Outpatient Procedure Center in [address] [phone] Suri Izquierdo M.D. Glaucoma Neovascular Discharge Disposition: Home or Self Care 12/19/2023 10:00 AM CDT Comprehensive Visit Department of Neurology in [address] [address] Jojo Barrientos M.D. Occlusion Carotid Artery Left; Ischemia Retina; Glaucoma Neovascular; Neuropathy Optic Ischemic Bilateral 2023 12:15 PM CDT Clinical Communication Virtual Review in [place], [place] 200 [place] [address] Pre-visit Intake 12/13/2023 10:00 AM CDT Procedure visit Department of Ophthalmology in [place], [place] [address] [place] [phone] Wero Gasca M.D. 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 12/07/2023 Clinical Communication Department of Ophthalmology in [place], [place] [address] [place] [phone] Carl Petty 12/07/2023 Documentation Department of Ophthalmology in [address] [address] Suri Izquierdo M.D. 11/30/2023 1:30 PM CDT Office Visit Department of Ophthalmology in [place], [place] [address] [place] [phone] Suri Izquierdo M.D. 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 Hemorrhage Vitreous Left (HCC) 11/30/2023 12:05 AM CDT Ancillary Procedure Department of Ophthalmology 11/30/2023 Ancillary Procedure Department of Ophthalmology 11/22/2023 9:02 AM CDT - 11/22/2023 11:59 PM CDT Hospital Encounter Outpatient Procedure Center in [address] [address] Suri Izquierdo M.D. Glaucoma Neovascular Discharge Disposition: Home or Self Care 11/09/2023 12:00 PM CDT Office Visit Department of Ophthalmology in [address] [address] Suri Izquierdo M.D. Hemorrhage Vitreous Left (HCC) (Primary Dx); Glaucoma Neovascular; Occlusion Carotid Artery Left 11/02/2023 12:45 PM CDT Office Visit Department of Ophthalmology in [place], [place] [address] [place] [phone] Suri Izquierdo M.D. Hemorrhage Vitreous Left (HCC) (Primary Dx); Ischemia Retina; Occlusion Carotid Artery Left 10/23/2023 2:54 PM CDT - 10/23/2023 11:59 PM CDT Hospital Encounter Outpatient Procedure Center in [place], [place] [address] [place] [phone] Shelia Laughlin M.D. Discharge Disposition: Home or Self Care 10/23/2023 2:20 PM CDT Ancillary Procedure Department of Ophthalmology in [place], [place] [address] [place] [phone] 10/23/2023 1:51 PM CDT - 10/23/2023 2:53 PM CDT Hospital Encounter Outpatient Procedure Center in [place], [place] [address] [place] [phone] Suri Izquierdo M.D. Glaucoma Neovascular Discharge Disposition: Home or Self Care 10/23/2023 12:30 PM CDT Office Visit Department of Ophthalmology in [place], [place] [address] [place] [phone] Suri Izquierdo M.D. Occlusion Carotid Artery Left (Primary Dx); Ischemia Retina; Glaucoma Neovascular; Neuropathy Optic Ischemic Bilateral 10/23/2023 Orders Only Department of Ophthalmology in [place], [place] [address] [place] [phone] Anabel Lang C.O.A. Glaucoma Neovascular (Primary Dx) 10/19/2023 2:00 PM CDT Ancillary Procedure Department of Ophthalmology in [place], [place] [address] [place] [phone] Suri Izquierdo M.D. Glaucoma Neovascular; Hemorrhage Vitreous Left (HCC) 10/19/2023 10:30 AM CDT Comprehensive Visit Department of Ophthalmology in [place], [place] [address] [place] [address] Suri Izquierdo M.D. Glaucoma Neovascular (Primary Dx); Hemorrhage Vitreous Left (HCC) 10/19/2023 Orders Only Department of Ophthalmology in [place], [place] [address] [place] [address] Juan David Cabrales M.D. Glaucoma Neovascular (Primary Dx); Hemorrhage Vitreous Left (HCC) 10/19/2023 Clinical Communication Department of Ophthalmology in [place], [place] [address] [place] [address] Suri Izquierdo M.D. 10/19/2023 Ancillary Procedure Department of Ophthalmology 10/18/2023 Clinical Communication Department of Ophthalmology in [place], [place] [address] [place] [address] Provider, Unknown 10/16/2023 Clinical Communication Department of Ophthalmology in [place], [place] [address] [place] [phone] Red Gallego M.D. from Last 3 Months Social History Tobacco Use Types Packs/Day Years Used Date Smoking Tobacco: Every Day Cigarettes Smokeless Tobacco: Never [facility] Utilities Answer Date Recorded In [...] CDT Ancillary Procedure Department of Ophthalmology in [place], [place] [address] [place] [phone] Wero Gasca M.D. [address] [place] [phone] 01/11/2024 9:45 AM CDT Office Visit Department of Ophthalmology in [place], [place] [address] [place] [phone] Doc Ferris M.D. [address] [place] [address] 01/24/2024 8:20 AM CDT Appointment Outpatient Procedure Center in [address] [place] [address] Suri Izquierdo M.D. [address] [place] [phone] Health Maintenance Due Date Last Done Comments Hepatitis C Screening 1945 Tobacco Cessation counseling 1945 Zoster Vaccines (1 of 2) 12/15/1995 DTaP,Tdap,and Td Vaccines (3 - Td or Tdap) 03/16/2018 03/16/2008, 07/04/2006 RSV vaccine - (32-3 6 weeks) or 60+ years (1 - 1-dose 75+ series) 2020 Depression Screening (Annual PHQ-2) 04/09/2023 COVID-19 Vaccine (2023-2 5 season) 2023 01/10/2022, 08/23/2021, 02/15/2021, Additional history exists Influenza Vaccine (#1) 2024 [...] 07/30/2018, 01/11/2016 Fall Risk Screen (Annual) Completed 12/27/2023 Medical Devices Implanted Type Area Plate Washer Device Identifier Shelf Expiration Date Model / Serial / Lot J J Sig Patella Oval 41 - Briones [id number] Implanted:Qty: 1 on 10/23/2011 Knee Implant Other/Legacy - See Implant Description [employer] Description:Device Manufactu rer - [employer]. Body Location - Other. Left. Device Status Text - [id number] [id number]. Depuy-Insert Stabilized Sz 5 12.5mm - Briones [id number] Implanted:Qty: 1 on 10/23/2011 Knee Implant Other/Legacy - See Implant Description [employer] Description:Device Manufactu rer - [employer]. Body Location - Other. Left. Device Status Text - [id number] [id number]. Depuy-Tib Tray Mod Cement Cocr Sz5 - Briones [id number] Implanted:Qty: 1 on 10/23/2011 Knee Implant Other/Legacy - See Implant Description [employer] Description:Device Manufactu rer - [employer]. Body Location - Other. Left. Device Status Text - [id number] [id number]. Sigma Post Stab.W Lug Fem Sz 6 Lt - Briones [id number] Implanted:Qty: 1 on 10/23/2011 Knee Implant Other/Legacy - See Implant Description [employer] Description:Device Manufactu rer - [employer]. Body Location - Other. Left. Device Status Text - [id number] [id number]. Cement Bone Large - Briones [id number] Implanted:Qty: 2 on 10/23/2011 Misc Other [employer] Description:Device Manufactu rer - [employer].. Device Status Text - [id number]. 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 - 12/27/2023 1:23 PM CDT Pre-Procedure Verification Pre-procedure verification conducted [...] Tetracaine 0.5% 1-10 drops. Procedure Details Injection: 2.5 mg bevacizumab 25 mg/mL ??Route: intravitreal, Site: Left Eye ??[facility]: 24787-050-78 Balanced salt solution irrigation to injected eye after the injection was Done. Hand motion was not present. Count fingers was not correct. 13.0. Time at which IOP done was 1:15 PM. IOP was done by Tonopen/Accupen. Reviewed instructions and patient verbalizes understanding. Ancillary Staff Ancillary Staff: ELMER Kong. Notes Patient oriented to outpatient procedure center. ??Reviewed process for scheduled procedure, and pain management including pain scale. Patient declines written post-procedure material or previously received brochure. ?? Information reviewed and understanding assessed by teach-back. ??Follow-up appointments discussed and return schedule given if requested. Left eye has only bare LP vision. Unable to detect hand motion or count fingers. Avastin, LEFT eye. [facility] [phone] LOT [id number] EXP 01/19/2024 [place] pain with injection after multiple numbing drops and Q-tips. Would recommend subconj lido/epi No complications. Nicholas Carlos MD Suri Izquierdo M.D. [facility] P ROCEDURES * Anderson Retinal Photocoagulation - OS - [...] post procedure care education. Wero Hall M.D. [facility] P MIRZA OPHTHALMOLGY NON-IMAGING ORDERS * B-Scan Ultrasound - OS [...] M.D. OPHTH ULTRASOU ND Performing Organization Address [facility] de Phone Number OPHTHALMOLGY NON-IMAGING ORDERS * Eyes US-Eye [id number] Image Exam (11/30/2023 12:05 AM CDT) Only [...] IMAGI NG PROCEDURES Performing Organization Address [facility] de Phone Number IIMS NA * Intravitreal [...] 25 mg/mL ??Route: intravitreal, Site: Left Eye ??[facility]: 39091-774-29 Balanced salt solution irrigation to injected eye [...] motion or count fingers. Avastin, LEFT eye. [facility] 43286-589-30 LOT [id number] EXP 01/06/2024 First injection in [place]. ??Poor [...] 25 mg/mL ??Route: intravitreal, Site: Left Eye ??[facility]: 53278-297-26 Balanced salt solution irrigation to injected eye [...] and return schedule given if requested. MEHRDAD [id number] Exp 01/06/24 Shelia Moody M.D. [facility] PRO CEDURES * B-Scan Ultrasound - OS - Left Eye (10/19/2023 3:27 PM CDT) Narrative [facility] - 10/19/2023 8:17 PM CDT Quality was good. Notes 10/19/2023 B-scan Left Eye: Moderate to dense vitreous opacities layered inferiorly and possible traction near 430PE. Retina appears grossly attached, no mass noted. Suri Izquierdo M.D. [facility] ULTRAS ND [facility] NON-IMAGING ORDERS * Creatinine with Estimated GFR (07/30/2023 8:13 AM CDT) Creatinine 1.15 0.74 - 1.35 mg/dL 07/30/2023 9:14 AM CDT DTL Estimated GFR (eGFR) 66 >=60 mL/min/BSA 07/30/2023 9:14 AM CDT DTL Comment: Estimated GFR calculated using the 2020 CKD_EPI creatinine equation. Blood (Blood, Venous) 07/30/2023 8:13 AM CDT 07/30/2023 8:52 AM CDT Red Gallego M.D. LAB BLOOD ADD-ON [facility] [address] [address], [facility] DTL [facility] [address] [place] [address] * (ABNORMAL) Electrolyte Panel with Creatinine Dimple (10/26/2011 4:13 AM CDT) BUN (Blood Urea Nitrogen), S 8 8 - 24 MG/DL [facility] Sodium, P 135 135 - 145 MMOL/L [facility] HX Bicarbonate, P/S 32(H) 22 - 29 MMOL/L [facility] Potassium, P 4.5 3.6 - 5.2 MMOL/L [facility] Chloride, S 98(L) 100 - 108 MMOL/L [facility] Creatinine, Dimple 0.8(L) 0.9 - 1.4 MG/DL [facility] Glucose, S 117 70 - 140 MG/DL [facility] 10/26/2011 4:13 AM CDT 10/26/2011 4:13 AM CDT Allison Redmond P.A.-C., P.A. LAB BLOOD A DD-ON [facility] [address] [place] [address], [facility] from Last 3 Months or Most Recently Relevant to Health Maintenance
--- OUTSIDE RECORDS SUMMARY | 2024-01-03 10:02 | XMS_ITS | Encounter Summary ---
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 [address] [place] [address] [facility] Referral ID Status Reason Start Date Expiration Date Visits Re quested Visits Authorized [id number] Closed 10/23/2023 04/23/2025 1 1 Encounter Details Date Type Department Care Team (Latest Contact Info) Description 12/19/2023 10:00 AM CDT Comprehensive Visit Department of Neurology in [place], [place] [address] [place] [phone] Jojo Barrientos M.D. [address] [place] [phone] Occlusion Carotid Artery Left; Ischemia Retina; Glaucoma Neovascular; Neuropathy Optic Ischemic Bilateral Social History Tobacco Use Types Packs/Day Years Used Date Smoking Tobacco: Every Day Cigarettes Smokeless Tobacco: Never [facility] Utilities Answer Date Recorded In the [...] your living situation today? I have a [facility] place to live 07/25/2023 Sex [...] CDT Ancillary Procedure Department of Ophthalmology in [place], [place] [address] [place] [address] Wero Gasca M.D. [address] [place] [phone] 01/11/2024 9:45 AM CDT Office Visit Department of Ophthalmology in [place], [place] [address] [place] [address] Doc Ferris M.D. [address] [place] [phone] 01/24/2024 8:20 AM CDT Appointment Outpatient Procedure Center in [address] [phone] Suri Izquierdo M.D. 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
--- OUTSIDE RECORDS SUMMARY | 2024-01-03 10:02 | XMS_ITS | Encounter Summary ---
Author Organization [facility] Address [address] [place] [address] Care Team Providers Care Home Health Assistant Name Role Phone Unavailable Primary Care Provider Unavailabl e Reason for Referral * Outpatient (Routine) - Closed Specialty Diagnoses / Procedures Referred By Janeth phillips Referred To Contact Procedures Tamayo Retinal Photocoagulation - OS - Left Eye Wero Gasca M.D. [address] [place] [address] [facility] Referral ID Status Reason Start Date Expiration Date Visits Re quested Visits Authorized [id number] Closed 12/13/2023 12/12/2024 1 1 * Outpatient (Routine) - Authorized Specialty Diagnoses / Procedures Referred By Janeth phillips Referred To Contact Ophthalmology Wero Gasca M.D. [address] [place] [address] Doc Ferris M.D. 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 [address] [place] [address] [facility] Referral ID Status Reason Start Date Expiration Date Visits Re quested Visits Authorized [id number] Closed 12/07/2023 12/06/2024 1 1 Encounter Details Date Type Department Care Team (Latest Contact Info) Description 12/13/2023 10:00 AM CDT Procedure visit Department of Ophthalmology in [place], [place] [address] [place] [phone] Wero Gasca M.D. 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 Injection Location: Dixon Hold injection slot in [place]? Left eye documented in this encounter Plan of Treatment Upcoming Encounters Date Type Department Care Team (Latest Contact Info) Description 01/11/2024 9:15 AM CDT Ancillary Procedure Department of Ophthalmology in [place], [place] [address] [place] [phone] Wero Gasca M.D. [address] [place] [phone] 01/11/2024 9:45 AM CDT Office Visit Department of Ophthalmology in [place], [place] [address] [place] [address] Doc Ferris M.D. [address] [place] [phone] 01/24/2024 8:20 AM CDT Appointment Outpatient Procedure Center in [address] [phone] Suri Izquierdo M.D. [address] [place] [phone] Scheduled Referrals Name Type Priority Associated Diagnoses [...] education. Wero Hall M.D. 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
--- OUTSIDE RECORDS SUMMARY | 2024-01-03 10:02 | XMS_ITS | Referral Summary ---
Author Organization [facility] Address [address] [place] [address] Care Team Providers Care Credit Professional Name Role Phone Unavailable Primary Care Provider Unavailabl e Source Comments Patient records contain information from all sites at [facility]. For routine questions regarding patient records, call [phone] during business hours, M-F 8:00 AM - 5:00 PM Central Time. Record requests for emergency care only can be directed to [phone] at any time.[facility] Encounters Date Type Department Care Team Description 12/27/2023 1:01 PM CDT - 12/27/2023 11:59 PM CDT Hospital Encounter Outpatient Procedure Center in [address] [phone] Suri Izquierdo M.D. Glaucoma Neovascular Discharge Disposition: Home or Self Care 12/19/2023 10:00 AM CDT Comprehensive Visit Department of Neurology in [address] [phone] Jojo Barrientos M.D. Occlusion Carotid Artery Left; Ischemia Retina; Glaucoma Neovascular; Neuropathy Optic Ischemic Bilateral 2023 12:15 PM CDT Clinical Communication Virtual Review in [place], [place] 200 [place] [address] Pre-visit Intake 12/13/2023 10:00 AM CDT Procedure visit Department of Ophthalmology in [address] [phone] Wero Gasca M.D. 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 12/07/2023 Clinical Communication Department of Ophthalmology in [place], [place] [address] [place] [phone] Carl Petty 12/07/2023 Documentation Department of Ophthalmology in [place], [place] [address] [place] [phone] Suri Izquierdo M.D. 11/30/2023 12:05 AM CDT Ancillary Procedure Department of Ophthalmology 11/30/2023 Ancillary Procedure Department of Ophthalmology 11/30/2023 1:30 PM CDT Office Visit Department of Ophthalmology in [place], [place] [address] [place] [phone] Suri Izquierdo M.D. 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 Hemorrhage Vitreous Left (HCC) 11/22/2023 9:02 AM CDT - 11/22/2023 11:59 PM CDT Hospital Encounter Outpatient Procedure Center in [address] [address] Suri Izquierdo M.D. Glaucoma Neovascular Discharge Disposition: Home or Self Care 11/09/2023 12:00 PM CDT Office Visit Department of Ophthalmology in [place], [place] [address] [place] [phone] Suri Izquierdo M.D. Hemorrhage Vitreous Left (HCC) (Primary Dx); Glaucoma Neovascular; Occlusion Carotid Artery Left 11/02/2023 12:45 PM CDT Office Visit Department of Ophthalmology in [place], [place] [address] [place] [phone] Suri Izquierdo M.D. Hemorrhage Vitreous Left (HCC) (Primary Dx); Ischemia Retina; Occlusion Carotid Artery Left 10/23/2023 2:54 PM CDT - 10/23/2023 11:59 PM CDT Hospital Encounter Outpatient Procedure Center in [place], [place] [address] [place] [phone] Shelia Laughlin M.D. Discharge Disposition: Home or Self Care 10/23/2023 Orders Only Department of Ophthalmology in [place], [place] [address] [place] [phone] Anabel Lang C.O.A. Glaucoma Neovascular (Primary Dx) 10/23/2023 2:20 PM CDT Ancillary Procedure Department of Ophthalmology in [place], [place] [address] [place] [phone] 10/23/2023 1:51 PM CDT - 10/23/2023 2:53 PM CDT Hospital Encounter Outpatient Procedure Center in [place], [place] [address] [place] [phone] Suri Izquierdo M.D. Glaucoma Neovascular Discharge Disposition: Home or Self Care 10/23/2023 12:30 PM CDT Office Visit Department of Ophthalmology in [address] [address] Suri Izquierdo M.D. Occlusion Carotid Artery Left (Primary Dx); Ischemia Retina; Glaucoma Neovascular; Neuropathy Optic Ischemic Bilateral 10/19/2023 Orders Only Department of Ophthalmology in [address] [phone] Juan David Cabrales M.D. Glaucoma Neovascular (Primary Dx); Hemorrhage Vitreous Left (HCC) 10/19/2023 Clinical Communication Department of Ophthalmology in [place], [place] [address] [place] [phone] Suri Izquierdo M.D. 10/19/2023 Ancillary Procedure Department of Ophthalmology 10/19/2023 2:00 PM CDT Ancillary Procedure Department of Ophthalmology in [place], [place] [address] [place] [phone] Suri Izquierdo M.D. Glaucoma Neovascular; Hemorrhage Vitreous Left (HCC) 10/19/2023 10:30 AM CDT Comprehensive Visit Department of Ophthalmology in [place], [place] [address] [place] [address] Suri Izquierdo M.D. Glaucoma Neovascular (Primary Dx); Hemorrhage Vitreous Left (HCC) 10/18/2023 Clinical Communication Department of Ophthalmology in [place], [place] [address] [place] [address] Provider, Unknown 10/16/2023 Clinical Communication Department of Ophthalmology in [place], [place] [address] [place] [phone] Red Gallego M.D. from Last 3 Months [...] Tobacco: Every Day Cigarettes Smokeless Tobacco: Never [facility] Vir2usities Answer Date Recorded In the past 12 [...] situation today? I have a [facility] place to live 07/25/2023 Sex and [...] Ancillary Procedure Department of Ophthalmology in [place], [place] [address] [place] [phone] Wero Gasca M.D. [address] [place] [phone] 01/11/2024 9:45 AM CDT Office Visit Department of Ophthalmology in [place], [place] [address] [place] [phone] Doc Ferris M.D. [address] [place] [address] 01/24/2024 8:20 AM CDT Appointment Outpatient Procedure Center in [address] [phone] Suri Izquierdo M.D. [address] [place] [address] Medical Devices Implanted Type Area Production Solderer Device Identifier Shelf Expiration Date Model / Serial / Lot J J Sig Patella Oval 41 - Briones [id number] Implanted:Qty: 1 on 10/23/2011 Knee Implant Other/Legacy - See Implant Description [employer] Description:Device Manufactu rer - [employer]. Body Location - Other. Left. Device Status Text - [id number] [id number]. Depuy-Insert Stabilized Sz 5 12.5mm - Briones [id number] Implanted:Qty: 1 on 10/23/2011 Knee Implant Other/Legacy - See Implant Description [employer] Description:Device Manufactu rer - [employer]. Body Location - Other. Left. Device Status Text - [id number] [id number]. Depuy-Tib Tray Mod Cement Cocr Sz5 - Briones [id number] Implanted:Qty: 1 on 10/23/2011 Knee Implant Other/Legacy - See Implant Description [employer] Description:Device Manufactu rer - [employer]. Body Location - Other. Left. Device Status Text - [id number] [id number]. Sigma Post Stab.W Lug Fem Sz 6 Lt - Briones [id number] Implanted:Qty: 1 on 10/23/2011 Knee Implant Other/Legacy - See Implant Description [employer] Description:Device Manufactu rer - [employer]. Body Location - Other. Left. Device Status Text - [id number] [id number]. Cement Bone Large - Briones [id number] Implanted:Qty: 2 on 10/23/2011 Misc Other [place] Description:Device Manufactu rer - Beverly Amarilis.. Device [...] 12:05 AM CDT OPHTHALMOLOGY IMAGE EXAM Routine 12:00 AM CDT INTRAVITREAL INJECTION, PHARMACOLOGIC AGENT [...] - Left Eye (12/27/2023 1:22 PM CDT) Buzz Cagle M.D. - 12/27/2023 1:23 PM CDT Pre-Procedure [...] 25 mg/mL ??Route: intravitreal, Site: Left Eye ??[facility]: 40987-590-25 Balanced salt solution irrigation to injected eye [...] motion or count fingers. Avastin, LEFT eye. [facility] [id number] LOT [id number] EXP 01/19/2024 Balmorhea pain with injection after multiple numbing drops and Q-tips. Would recommend subconj lido/epi No complications. Nicholas Carlos MD Suri Izquierdo M.D. OPHTH CLINIC P ROCEDURES * Anderson Retinal Photocoagulation - [...] education. Wero Hall M.D. OPH CLINIC P ROCEDURES Performing Organization Address [facility] Co de Phone Number OPHTHALMOLGY NON-IMAGING ORDERS * B-Scan Ultrasound - OS - Left Eye (11/30/2023 2:12 PM CDT) Narrative [facility] NON[facility] - 12/03/2023 3:25 PM CDT 11/30/2023 B-scan Left Eye: Moderate to dense vitreous opacities mostly inferiorly, likely retinal detachment nasally from approximately 130E - 430E with possible break visualized on L430. Retina appears otherwise attached, no mass noted. Suri Izquierdo M.D. [facility] ULTRASOU [place] Performing Organization Address [facility] de Phone Number [facility] NON-IMAGING ORDERS * Eyes US-Eye [id number] Image Exam (11/30/2023 12:05 AM CDT) Only [...] RAD IMAGI NG PROCEDURES Performing Organization Address [facility] Co de Phone Number IIMS NA * [...] 25 mg/mL ??Route: intravitreal, Site: Left Eye ??[facility]: 08374-067-72 Balanced salt solution irrigation to injected eye [...] motion or count fingers. Avastin, LEFT eye. [facility] 47812-744-45 LOT [id number] EXP 01/06/2024 First injection in [place]. ??Poor [...] 25 mg/mL ??Route: intravitreal, Site: Left Eye ??[facility]: 85193-687-50 Balanced salt solution irrigation to injected eye [...] and return schedule given if requested. MEHRDAD [id number] Exp 01/06/24 Shelia Moody M.D. OPH CLINIC PRO CEDURES * B-Scan Ultrasound - OS - Left Eye (10/19/2023 3:27 PM CDT) Narrative OPHTHALMOLGY NON-IMAGING ORDERS - 10/19/2023 8:17 PM CDT Quality was good. Notes 10/19/2023 B-scan Left Eye: Moderate to dense vitreous opacities layered inferiorly and possible traction near 430PE. Retina appears grossly attached, no mass noted. Suri Izquierdo M.D. OPH ULTRAS [place] OPHTHALMOLGY NON-IMAGING ORDERS * Creatinine with [...] M.D. LAB BLOOD ADD-ON Performing Organization Address City/[facility]/ZIP Co de Phone Number [facility] [address] [place] [address], [facility] DTL [facility] [address] [place] [address] * (ABNORMAL) Electrolyte Panel with Creatinine Dimple (10/26/2011 4:13 AM CDT) BUN (Blood Urea Nitrogen), S 8 8 - 24 MG/DL [facility] Sodium, P 135 135 - 145 MMOL/L [facility] HX Bicarbonate, P/S 32(H) 22 - 29 MMOL/L [facility] Potassium, P 4.5 3.6 - 5.2 MMOL/L [facility] Chloride, S 98(L) 100 - 108 MMOL/L [facility] Creatinine, Dimple 0.8(L) 0.9 - 1.4 MG/DL [facility] Glucose, S 117 70 - 140 MG/DL [facility] 10/26/2011 4:13 AM CDT 10/26/2011 4:13 AM CDT Allison Redmond P.A.-C., P.A. LAB BLOOD A DD-ON Performing Organization Address City/[facility]/ZIP Co de Phone Number [facility] 200 [place] [address], [facility] from Last 3 Months or Most Recently Relevant to Health Maintenance
--- OUTSIDE RECORDS SUMMARY | 2024-01-03 10:02 | XMS_ITS | Encounter Summary ---
Author Organization [facility] Address [address] [place] [address] Care Team Providers Care Sewing Supervisor Name Role Phone Unavailable Primary Care Provider Unavailabl e Encounter Details Date Type Department Care Team (Late st Contact Info) Description 11/30/2023 Ancillary Procedure Department of Ophthalmology Social History Tobacco Use Types Packs/Day Years Used Date Smoking Tobacco: Unknown [facility] Utilities Answer Date Recorded In the past 12 months has th e electric, gas, oil, or water [employer] threatened to shut off services in your [...] CDT Ancillary Procedure Department of Ophthalmology in [place], [place] [address] [place] [address] Wero Gasca M.D. [address] [place] [phone] 01/11/2024 9:45 AM CDT Office Visit Department of Ophthalmology in [place], [place] [address] [place] [address] Doc Ferris M.D. [address] [place] [phone] 01/24/2024 8:20 AM CDT Appointment Outpatient Procedure Center in [address] [phone] Suri Izquierdo M.D. [address] [place] [phone] documented as of this encounter Procedures Procedure Name Priority Date/Time Associated Diagnosis Comments OPHTHALMOLOGY IMAGE EXAM Routine 11/30/2023 12:00 AM CDT documented in this encounter Results * Video-Eyes US-Eye [id number]-[id number] Image Exam (11/30/2023 12:00 AM CDT) Narrative [...]
--- OUTSIDE RECORDS SUMMARY | 2024-01-03 10:02 | XMS_ITS ---
Author Organization [facility] Address [address] [place] [address] Care Team Providers Care Cash Register Mechanic Name Role Phone Unavailable Unavailable Unavailable Surgery Details Not on file Complications Check Surgery Details section. Procedure Estimated Blood Loss Check Surgery Details section. Procedure Findings Check Surgery Details section. Procedure Specimens Taken Check Surgery Details section.
--- OUTSIDE RECORDS SUMMARY | 2024-01-03 10:02 | XMS_ITS | Encounter Summary ---
Author Organization [facility] Address [address] [place] [address] Care Team Providers Care Nut Feeder Name Role Phone Unavailable Primary Care Provider Unavailabl e Encounter Details Date Type Department Care Team (Latest Contact Info) Description 12/07/2023 Clinical Communication Department of Ophthalmology in [place], [place] [address] [place] [address] Suri Izquierdo M.D. [address] [place] [address] Social History Tobacco Use Types Packs/Day Years Used Date Smoking Tobacco: Unknown [place] Utilities Answer Date Recorded In the past [...] CDT Ancillary Procedure Department of Ophthalmology in [place], [place] [address] [place] [address] Wero Gasca M.D. [address] [place] [phone] 01/11/2024 9:45 AM CDT Office Visit Department of Ophthalmology in [place], [place] [address] [place] [address] Doc Ferris M.D. [address] [place] [phone] 01/24/2024 8:20 AM CDT Appointment Outpatient Procedure Center in [address] [phone] Suri Izquierdo M.D. [address] [place] [address] documented as of this encounter Visit Diagnoses Not on filedocumented in this encounter
--- OUTSIDE RECORDS SUMMARY | 2024-01-03 10:02 | XMS_ITS | Encounter Summary ---
Author Organization [facility] Address [address] [place] [address] Care Team Providers Care Lace Stripper Name Role Phone Unavailable Primary Care Provider Unavailabl e Reason for Visit * Outpatient (Routine) - Closed Specialty Diagnoses / Procedures Referred By Janeth t Referred To Contact Ophthalmology Suri Izquierdo M.D. [address] [place] [phone] [facility] Referral ID Status Reason Start Date Expiration Date Visits Re quested Visits Authorized [id number] Closed 11/09/2023 05/10/2025 1 1 Encounter Details Date Type Department Care Team (Latest Contact Info) Description 11/30/2023 1:30 PM CDT Office Visit Department of Ophthalmology in [place], [place] [address] [place] [phone] Suri Izquierdo M.D. 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 I have a [facility] place to live 07/25/2023 Sex [...] is also scheduled with neurology here at [place] in December and saw his local tiger machine operator earlier this month. PLAN: - Pre-operative [...] last injection with OCT macula. Injection Location: [place] Hold injection slot in [place]? Left eye Injection plan staffed with Dr. Herrera on 10/19/23 Patient discussed and seen with Dr. Jara and Dr. Ferris today, 11/30/23. Suri Izquierdo M.D. PGY-2 Ophthalmology Resident documented in this encounter Plan of Treatment Upcoming Encounters Date Type Department Care Team (Latest Contact Info) Description 01/11/2024 9:15 AM CDT Ancillary Procedure Department of Ophthalmology in [place], [place] [address] [place] [address] Wero Gasca M.D. [address] [place] [address] 01/11/2024 9:45 AM CDT Office Visit Department of Ophthalmology in [place], [place] [address] [place] [address] Doc Ferris M.D. [address] [place] [phone] 01/24/2024 8:20 AM CDT Appointment Outpatient Procedure Center in [address] [place] [address] Suri Izquierdo M.D. 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
--- OUTSIDE RECORDS SUMMARY | 2024-01-03 10:02 | XMS_ITS | Encounter Summary ---
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 200 [place] [address] [facility] Referral ID Status Reason Start Date Expiration Date Visits Re quested Visits Authorized [id number] Closed 12/07/2023 12/06/2024 1 1 Encounter Details Date Type Department Care Team (Late st Contact Info) Description 12/07/2023 Documentation Department of Ophthalmology in [place], [place] [address] [place] [phone] Suri Izquierdo M.D. [address] [place] [phone] Social History Tobacco Use Types Packs/Day Years Used Date Smoking Tobacco: Unknown [facility] Utilities Answer Date Recorded In the [...] your living situation today? I have a [facility] place to live 07/25/2023 Sex [...] within the next week. Discussed with front elevator operator, who will schedule this. Discussed with Dr. Ferris. documented in this encounter Plan of Treatment Upcoming Encounters Date Type Department Care Team (Latest Contact Info) Description 01/11/2024 9:15 AM CDT Ancillary Procedure Department of Ophthalmology in [place], [place] [address] [place] [address] Wero Gasca M.D. [address] [place] [phone] 01/11/2024 9:45 AM CDT Office Visit Department of Ophthalmology in [place], [place] [address] [place] [address] Doc Ferris M.D. [address] [place] [phone] 01/24/2024 8:20 AM CDT Appointment Outpatient Procedure Center in [address] [phone] Suri Izquierdo M.D. 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
--- OUTSIDE RECORDS SUMMARY | 2024-01-03 10:02 | XMS_ITS | Encounter Summary ---
Author Organization [facility] Address [address] [place] [address] Care Team Providers Care Car Varnisher Name Role Phone Unavailable Primary Care Provider Unavailabl e Encounter Details Date Type Department Care Team (Late st Contact Info) Description 11/30/2023 12:05 AM CDT Ancillary Procedure Department of Ophthalmology Social History Tobacco Use Types Packs/Day Years Used Date Smoking Tobacco: Unknown [facility] Utilities Answer Date Recorded In the [...] your living situation today? I have a [facility] place [facility] live 07/25/2023 Sex [...] CDT Ancillary Procedure Department of Ophthalmology in [place], [place] [address] [place] [address] Wero Gasca M.D. [address] [place] [phone] 01/11/2024 9:45 AM CDT Office Visit Department of Ophthalmology in [place], [place] [address] [place] [address] Doc Ferris M.D. [address] [place] [phone] 01/24/2024 8:20 AM CDT Appointment Outpatient Procedure Center in [address] [phone] Suri Izquierdo M.D. [address] [place] [phone] documented as of this encounter Procedures Procedure Name Priority Date/Time Associated Diagnosis Comments OPHTHALMOLOGY IMAGE EXAM Routine 11/30/2023 12:05 AM CDT documented in this encounter Results * Eyes US-Eye [id number] Image Exam (11/30/2023 12:05 AM CDT) Narrative [...]
--- OUTSIDE RECORDS SUMMARY | 2024-01-03 10:02 | XMS_ITS | Encounter Summary ---
Author Organization [facility] Address [address] [place] [address] Care Team Providers Care Supervisor Ditching Name Role Phone Unavailable Primary Care Provider Unavailabl e Reason for Referral * Outpatient (Routine) - Authorized Specialty Diagnoses / Procedures Referred By Janeth phillips Referred To Contact Diagnoses Glaucoma Neovascular Procedures Intravitreal Injection, Pharmacologic Agent - OS - Left Eye Suri Izquierdo M.D. [address] [place] [address] [facility] Region Referral ID Status Reason Start Date Expiration Date V isits Requested Visits Authorized [id number] Authorized 10/19/2023 10/18/2024 5 5 Reason for Visit * Outpatient (Routine) - Authorized Specialty Diagnoses / Procedures Referred By Janeth phillips Referred To Contact Diagnoses Glaucoma Neovascular Procedures Intravitreal Injection, Pharmacologic Agent - OS - Left Eye Suri Izquierdo M.D. [address] [place] [address] [facility] Region Referral ID Status Reason Start Date Expiration Date V isits Requested Visits Authorized [id number] Authorized 10/19/2023 10/18/2024 5 5 Encounter Details Date Type Department Care Team (Latest Contact Info) Description 12/27/2023 1:01 PM CDT - 12/27/2023 11:59 PM CDT Hospital Encounter Outpatient Procedure Center in [place] [address] [place] [address] Suri Izquierdo M.D. [address] [place] [address] Glaucoma Neovascular Discharge Disposition: Home or Self Care Social History Tobacco Use Types Packs/Day Years Used Date Smoking Tobacco: Every Day Cigarettes Smokeless Tobacco: Never [facility] Utilities Answer Date Recorded In the past 12 months has th e [employer], gas, oil, or water [employer] threatened to shut off services in your [...] by mouth 2 (two) times a day. gabapentin (Neurontin) 100 mg capsule Take 1 capsule (100 mg total) by mouth 3 (three) times a day. 270 capsule 12/19/2023 Klor-Con M20 20 mEq ER tablet Take by mouth 2 (two) times a day with meals. 11/14/2023 latanoprost (Xalatan) 0.005 % ophthalmic solution Administer 1 drop into both eyes at bedtime. 5 mL 3 11/02/2023 magnesium oxide 400 mg magnesium capsule Take 400 mg by mouth. 11/10/2022 mirtazapine (Remeron) 7.5 mg tablet Take 7.5 mg by mouth at bedtime. 11/15/2023 prednisoLONE acetate (Pred Forte) 1 % ophthalmic suspension Administer 1 drop into the left eye 3 (three) times a day. 5 mL 12/13/2023 traMADoL (ULTRAM) 50 mg tablet Take 50 mg by mouth daily. 07/27/2023 Trelegy Ellipta 100-62.5-25 mcg inhaler 1 puff daily. documented as of this encounter Plan of Treatment Upcoming Encounters Date Type Department Care Team (Latest Contact Info) Description 01/11/2024 9:15 AM CDT Ancillary Procedure Department of Ophthalmology in [place], [place] [address] [place] [phone] Wero Gasca M.D. [address] [place] [phone] 01/11/2024 9:45 AM CDT Office Visit Department of Ophthalmology in [place], [place] [address] [place] [phone] Doc Ferris M.D. [address] [place] [phone] 01/24/2024 8:20 AM CDT Appointment Outpatient Procedure Center in [address] [phone] Suri Izquierdo M.D. [address] [place] [phone] documented as of this encounter Procedures Procedure Name Priority Date/Time Associated Diagnosis Comments INTRAVITREAL INJECTION, PHARMACOLOGIC AGENT - OS - LEFT EYE Routine 12/27/2023 1:22 PM CDT Glaucoma Neovascular documented in this [...] 25 mg/mL ??Route: intravitreal, Site: Left Eye ??[facility]: 82238-655-89 Balanced salt solution irrigation to injected eye [...] motion or count fingers. Avastin, LEFT eye. [facility] [id number] LOT [id number] EXP 01/19/2024 Novi pain with injection after multiple numbing drops and Q-tips. Would recommend subconj lido/epi No complications. Nicholas Carlos MD Suri Izquierdo M.D. [facility] P ROCEDURES documented in this encounter Visit Diagnoses Diagnosis Glaucoma Neovascular documented in this encounter Administered Medications Inactive Administered Medications - up to 3 most recent administrations Medication Order MAR Action Action Date Dose Rate Site bevacizumab intraocular injection 2.5 mg (Avastin) 2.5 mg, intravitreal, One-Time Injection, Starting on Yun 12/27/23 at 1323, For 1 dose Given 12/27/2023 1:23 PM CDT 2.5 mg Left Eye documented in this encounter
--- OUTSIDE RECORDS SUMMARY | 2024-01-03 10:03 | XMS_ITS | Encounter Summary ---
Author Organization [facility] Address [address] [place] [address] Care Team Providers Care Supervisor Intermediates Name Role Phone Unavailable Primary Care Provider Unavailabl e Encounter Details Date Type Department Care Team (Latest Contact Info) Description 09/11/2023 Clinical Communication Department of Ophthalmology in [place], [place] [address] [place] [address] Rachel Collins M.D., Ph.D. [address] [place] [address] Social History Tobacco Use Types Packs/Day Years Used Date Smoking Tobacco: Unknown [facility] Utilities Answer Date Recorded In the past [...] CDT Ancillary Procedure Department of Ophthalmology in [place], [place] [address] [place] [address] Wero Gasca M.D. [address] [place] [phone] 01/11/2024 9:45 AM CDT Office Visit Department of Ophthalmology in [place], [place] [address] [place] [address] Doc Ferris M.D. [address] [place] [phone] 01/24/2024 8:20 AM CDT Appointment Outpatient Procedure Center in [address] [phone] Suri Izquierdo M.D. [address] [place] [address] documented as of this encounter Visit Diagnoses Not on filedocumented in this encounter
--- OUTSIDE RECORDS SUMMARY | 2024-01-03 10:03 | XMS_ITS | Encounter Summary ---
Author Organization [facility] Address [address] [place] [address] Care Team Providers Care Cartography Supervisor Name Role Phone Unavailable Primary Care Provider Unavailabl e Encounter Details Date Type Department Care Team (Late st Contact Info) Description 10/23/2023 Orders Only Department of Ophthalmology in [place], [place] [address] [place] [phone] Anabel Lang, C.O.A. [address] [place] [address] Glaucoma Neovascular (Primary Dx) Social History Tobacco Use Types Packs/Day Years Used Date Smoking Tobacco: Unknown [facility] Utilities Answer Date Recorded In [...] today? I have a [facility] place to live 07/25/2023 Sex [...] Ancillary Procedure Department of Ophthalmology in [place], [place] [address] [place] [address] Wero Gasca M.D. [address] [place] [address] 01/11/2024 9:45 AM CDT Office Visit Department of Ophthalmology in [place], [place] [address] [place] [address] Doc Ferris M.D. [address] [place] [phone] 01/24/2024 8:20 AM CDT Appointment Outpatient Procedure Center in [address] [phone] Suri Izquierdo M.D. [address] [place] [address] documented as of this encounter Visit Diagnoses Diagnosis Glaucoma Neovascular- Primary documented in this encounter
--- OUTSIDE RECORDS SUMMARY | 2024-01-03 10:03 | XMS_ITS | Encounter Summary ---
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 [address] [place] [address] [facility] Referral ID Status Reason Start Date Expiration Date Visits Re quested Visits Authorized [id number] Closed 10/23/2023 04/23/2025 1 1 * Outpatient (Routine) - Closed Specialty Diagnoses / Procedures Referred By Janeth phillips Referred To Contact Ophthalmology Suri Izquierdo M.D. [address] [place] [address] [facility] Referral ID Status Reason Start Date Expiration Date Visits Re quested Visits Authorized [id number] Closed 10/23/2023 04/23/2025 1 1 Scheduling Instructions VTD Reason for Visit * Outpatient (Routine) - Closed Specialty Diagnoses / Procedures Referred By Janeth phillips Referred To Contact Ophthalmology Suri Izquierdo M.D. [address] [place] [address] [facility] Referral ID Status Reason Start Date Expiration Date Visits Re quested Visits Authorized [id number] Closed 10/19/2023 04/19/2025 1 1 Encounter Details Date Type Department Care Team (Latest Contact Info) Description 10/23/2023 12:30 PM CDT Office Visit Department of Ophthalmology in [place], [place] [address] [place] [address] Suri Izquierdo M.D. [address] [place] [phone] Occlusion Carotid Artery Left (Primary Dx); Ischemia Retina; Glaucoma Neovascular; Neuropathy Optic Ischemic Bilateral Social History Tobacco Use Types Packs/Day Years Used Date Smoking Tobacco: Unknown [facility] Utilities Answer Date Recorded In the past 12 months has e [employer], gas, oil, or water [employer] threatened to shut off services in your [...] your living situation today? I have a [facility] place to live 07/25/2023 [...] had to drive to pharmacy in the [facility] to fill the prescription. He is otherwise using all his eye drops as instructed. After discussing with his children, he decided that he would prefer to establish care with a vascular specialist and or stroke specialist here at [facility], so he did not reach out [...] place a referral tostroke neurology here at [place]. PLAN: - Avastin injection this afternoon in [...] last injection with OCT macula. Injection Location: [facility] injection slot in [place]? Left eye Staffed with Dr. Herrera on 10/19/23 Patient discussed and seen with Dr. Sanchez today. Suri Izquierdo M.D. PGY-2 Ophthalmology Resident documented in this encounter Plan of Treatment Upcoming Encounters Date Type Department Care Team (Latest Contact Info) Description 01/11/2024 9:15 AM CDT Ancillary Procedure Department of Ophthalmology in [place], [place] [address] [place] [phone] Wero Gasca M.D. [address] [place] [phone] 01/11/2024 9:45 AM CDT Office Visit Department of Ophthalmology in [place], [place] [address] [place] [phone] Doc Ferris M.D. [address] [place] [phone] 01/24/2024 8:20 AM CDT Appointment Outpatient Procedure Center in [address] [phone] Suri Izquierdo M.D. [address] [place] [phone] Scheduled Referrals Name Type Priority Associated Diagnoses [...]
--- OUTSIDE RECORDS SUMMARY | 2024-01-03 10:03 | XMS_ITS | Encounter Summary ---
Author Organization [facility] Address [address] [place] [address] Care Team Providers Care Public Service Director Name Role Phone Unavailable Primary Care Provider Unavailabl e Encounter Details Date Type Department Care Team (Latest Contact Info) Description 10/19/2023 2:00 PM CDT Ancillary Procedure Department of Ophthalmology in [place], [place] [address] [place] [address] Suri Izquierdo M.D. [address] [place] [address] Glaucoma Neovascular; Hemorrhage Vitreous Left (HCC) Social History Tobacco Use Types Packs/Day Years Used Date Smoking Tobacco: Unknown [facility] Utilities Answer Date Recorded In the past 12 months has [facility] electric, gas, oil, or water [...] CDT Ancillary Procedure Department of Ophthalmology in [place], [place] [address] [place] [address] Wero Gasca M.D. [address] [place] [address] 01/11/2024 9:45 AM CDT Office Visit Department of Ophthalmology in [place], [place] [address] [place] [address] Doc Ferris M.D. [address] [place] [phone] 01/24/2024 8:20 AM CDT Appointment Outpatient Procedure Center in [address] [phone] Suri Izquierdo M.D. [address] [place] [phone] documented as of this encounter Procedures Procedure [...] appears grossly attached, no mass noted. [facility]i [facility] OPHTHALMOLGY NON-IMAGING ORDERS documented in this encounter Visit Diagnoses Diagnosis Glaucoma Neovascular Hemorrhage Vitreous Left (HCC) documented in this encounter
--- OUTSIDE RECORDS SUMMARY | 2024-01-03 10:03 | XMS_ITS | Encounter Summary ---
Author Organization [facility] Address [address] [place] [address] Care Team Providers Care Hand I Blocker Name Role Phone Unavailable Primary Care Provider Unavailabl e Encounter Details Date Type Department Care Team (Latest Contact Info) Description 10/16/2023 Clinical Communication Department of Ophthalmology in [place] [address] [place] [address] Red Gallego M.D. [address] [place] [phone] Social History Tobacco Use Types Packs/Day Years Used Date Smoking Tobacco: Unknown [facility] Utilities Answer Date Recorded In the past 12 months has [facility] electric, gas, oil, or water company [...] CDT Ancillary Procedure Department of Ophthalmology in [place], [place] [address] [place] [address] Wero Gasca M.D. [address] [place] [address] 01/11/2024 9:45 AM CDT Office Visit Department of Ophthalmology in [place], [place] [address] [place] [address] Doc Ferris M.D. [address] [place] [phone] 01/24/2024 8:20 AM CDT Appointment Outpatient Procedure Center in [address] [phone] Suri Izquierdo M.D. [address] [place] [address] documented as of this encounter Visit Diagnoses Not on filedocumented in this encounter
--- OUTSIDE RECORDS SUMMARY | 2024-01-03 10:03 | XMS_ITS | Encounter Summary ---
Author Organization [facility] Address [address] [place] [address] Care Team Providers Care Wire Basket Maker Name Role Phone Unavailable Primary Care Provider Unavailabl e Reason for Referral * Outpatient (Routine) - Authorized Specialty Diagnoses / Procedures Referred By Janeth phillips Referred To Contact Vascular Medicine Diagnoses Glaucoma Neovascular Suri Izquierdo M.D. [address] [place] [address] [facility] Referral ID Status Reason Start Date Expiration Date V isits Requested Visits Authorized [id number] Authorized 10/19/2023 04/19/2025 1 1 * Outpatient (Routine) - Closed Specialty Diagnoses / Procedures Referred By Janeth phillips Referred To Contact Ophthalmology Suri Izquierdo M.D. [address] [place] [address] [facility] Referral ID Status Reason Start Date Expiration Date Visits Re quested Visits Authorized [id number] Closed 10/19/2023 04/19/2025 1 1 Reason for Visit * Appointment Request (Routine) - Closed Specialty Diagnoses / Procedures Referred By Janeth t Referred To Contact Ophthalmology Referral ID Status Reason Start Date Expiration Date Visits Re quested Visits Authorized [id number] Closed 10/18/2023 10/17/2024 1 1 Encounter Details Date Type Department Care Team (Latest Contact Info) Description 10/19/2023 10:30 AM CDT Comprehensive Visit Department of Ophthalmology in [place], [place] [address] [place] [address] Suri Izquierdo M.D. [address] [place] [address] Glaucoma Neovascular (Primary Dx); Hemorrhage Vitreous Left [...] your living situation today? I have a [facility] place to live 07/25/2023 Sex and [...] a referral for vascular medicine here at [place] if it is more convenient to group [...] last injection with OCT macula. Injection Location: [place] Hold injection slot in [place]? Left eye Staffed with Dr. Herrera. Patient [...] CDT Ancillary Procedure Department of Ophthalmology in [place], [place] [address] [place] [address] Wero Gasca M.D. [address] [place] [phone] 01/11/2024 9:45 AM CDT Office Visit Department of Ophthalmology in [place], [place] [address] [place] [phone] Doc Ferris M.D. [address] [place] [phone] 01/24/2024 8:20 AM CDT Appointment Outpatient Procedure Center in [address] [phone] Suri Izquierdo M.D. [address] [place] [address] Scheduled Referrals Name Type Priority Associated Diagnoses [...] mass noted. Suri Izquierdo M.D. [facility] NON-IMAGING ORDERS documented in this encounter Visit Diagnoses Diagnosis Glaucoma Neovascular- Primary Hemorrhage Vitreous Left (HCC) Glaucoma Neovascular Hemorrhage Vitreous Left (HCC) documented in this encounter
--- OUTSIDE RECORDS SUMMARY | 2024-01-03 10:03 | XMS_ITS | Encounter Summary ---
Author Organization [facility] Address [address] [place] [address] Care Team Providers Care Lead Sales Consultant Name Role Phone Unavailable Primary Care Provider Unavailabl e Reason for Referral * Outpatient (Routine) - Closed Specialty Diagnoses / Procedures Referred By Janeth phillips Referred To Contact Ophthalmology Suri Izquierdo M.D. [address] [place] [phone] [facility] Referral ID Status Reason Start Date Expiration Date Visits Re quested Visits Authorized [id number] Closed 11/09/2023 05/10/2025 1 1 Reason for Visit * Outpatient (Routine) - Closed Specialty Diagnoses / Procedures Referred By Janeth phillips Referred To Contact Ophthalmology Suri Izquierdo M.D. [address] [place] [phone] [facility] Referral ID Status Reason Start Date Expiration Date Visits Re quested Visits Authorized [id number] Closed 11/02/2023 05/03/2025 1 1 Encounter Details Date Type Department Care Team (Latest Contact Info) Description 11/09/2023 12:00 PM CDT Office Visit Department of Ophthalmology in [place], [place] [address] [place] [phone] Suri Izquierdo M.D. [address] [place] [phone] Hemorrhage Vitreous Left (HCC) (Primary Dx); Glaucoma [...] He is scheduled with neurology here at [place] in December and is seeing his bread dumper early next week. PLAN: - Continue Avastin [...] last injection with OCT macula. Injection Location: [place] Hold injection slot in [place]? Left eye Injection plan staffed with Dr. Herrera on 10/19/23 Patient discussed and seen with Dr. Benton today, 11/09/23. Suri Izquierdo M.D. PGY-2 Ophthalmology Resident documented in this encounter Plan of Treatment Upcoming Encounters Date Type Department Care Team (Latest Contact Info) Description 01/11/2024 9:15 AM CDT Ancillary Procedure Department of Ophthalmology in [place], [place] [address] [place] [phone] Wero Gasca M.D. [address] [place] [phone] 01/11/2024 9:45 AM CDT Office Visit Department of Ophthalmology in [place], [place] [address] [place] [phone] Doc Ferris M.D. [address] [place] [phone] 01/24/2024 8:20 AM CDT Appointment Outpatient Procedure Center in [address] [phone] Suri Izquierdo M.D. [address] [place] [phone] Scheduled Orders Name Type Priority Associated Diagnoses [...]
--- OUTSIDE RECORDS SUMMARY | 2024-01-03 10:03 | XMS_ITS | Encounter Summary ---
Author Organization [facility] Address [address] [place] [address] Care Team Providers Care Materials Development Engineer Name Role Phone Unavailable Primary Care Provider Unavailabl e Encounter Details Date Type Department Care Team (Latest Contact Info) Description 10/23/2023 2:54 PM CDT - 10/23/2023 11:59 PM CDT Hospital Encounter Outpatient Procedure Center in [place], [place] [address] [place] [address] Shelia Laughlin M.D. [address] [place] [address] Discharge Disposition: Home or Self Care Social History Tobacco Use Types Packs/Day Years Used Date Smoking Tobacco: Unknown [facility] Utilities Answer Date Recorded In the past 12 months has [facility] electric, gas, oil, or water company [...] your living situation today? I have a [facility] place to live 07/25/2023 Sex and Gender [...] CDT Ancillary Procedure Department of Ophthalmology in [place], [place] [address] [place] [phone] Wero Gasca M.D. [address] [place] [phone] 01/11/2024 9:45 AM CDT Office Visit Department of Ophthalmology in [place], [place] [address] [place] [address] Doc Ferris M.D. [address] [place] [phone] 01/24/2024 8:20 AM CDT Appointment Outpatient Procedure Center in [address] [phone] Suri Izquierdo M.D. [address] [place] [phone] documented as of this encounter Procedures Procedure [...] 25 mg/mL ??Route: intravitreal, Site: Left Eye ??[facility]: 09621-012-20 Balanced salt solution irrigation to injected eye [...] and return schedule given if requested. LE [id number] Exp 01/06/24 Shelia Moody M.D. [facility] PRO CEDURES documented in this encounter Visit Diagnoses Not on filedocumented in this encounter
--- OUTSIDE RECORDS SUMMARY | 2024-01-03 10:03 | XMS_ITS | Encounter Summary ---
Author Organization [facility] Address [address] [place] [address] Care Team Providers Care Exceptional Children Teacher Assistant Name Role Phone Unavailable Primary Care Provider Unavailabl e Reason for Referral * Outpatient (Routine) - Authorized Specialty Diagnoses / Procedures Referred By Janeth phillips Referred To Contact Diagnoses Glaucoma Neovascular Procedures Intravitreal Injection, Pharmacologic Agent - OS - Left Eye Suri Izquierdo M.D. [address] [place] [address] [facility]ly [facility] Referral ID Status Reason Start Date Expiration Date V isits Requested Visits Authorized [id number] Authorized 10/19/2023 10/18/2024 5 5 * Outpatient (Routine) - Authorized Specialty Diagnoses / Procedures Referred By Janeth phillips Referred To Contact Ophthalmology Suri Izquierdo M.D. [address] [place] [address] [facility] Referral ID Status Reason Start Date Expiration Date V isits Requested Visits Authorized [id number] Authorized 10/19/2023 04/19/2025 1 1 Scheduling Instructions Left Eye: Avastin Left eye for Other: Neovascular glaucoma within 1 week. Follow-up for 3 more injections of Avastin in the left eye every 4 - weeks. Followup: 4 - 5 weeks after last injection with OCT macula. Injection Location: [place] Hold injection slot in [place]? Left eye Encounter Details Date Type Department Care Team (Late st Contact Info) Description 10/19/2023 Orders Only Department of Ophthalmology in [place], [place] [address] [place] [address] Juan David Cabrales M.D. [address] [place] [address] Glaucoma Neovascular (Primary Dx); Hemorrhage Vitreous Left [...] CDT Ancillary Procedure Department of Ophthalmology in [place], [place] [address] [place] [address] Wero Gasca M.D. [address] [place] [address] 01/11/2024 9:45 AM CDT Office Visit Department of Ophthalmology in [place], [place] [address] [place] [address] Doc Ferris M.D. [address] [place] [address] 01/24/2024 8:20 AM CDT Appointment Outpatient Procedure Center in [address] [address] Suri Izquierdo M.D. [address] [place] [address] Scheduled Orders Name Type Priority Associated Diagnoses Orde r Schedule Optical Coherence Tomography - Macula/Retina - OU - Both Eyes Ophthalmology Routine Hemorrhage Vitreous Left (HCC) 1 Occurrences starting 10/19/2023 until 01/18/2025 Intravitreal Injection, Pharmacologic Agent - OS - Left Eye Ophthalmology Routine Glaucoma Neovascular 4 weeks for 5 Occurrences starting 10/19/2023 until 10/18/2026, 3 completed Scheduled Referrals Name Type Priority Associated [...] 25 mg/mL ??Route: intravitreal, Site: Left Eye ??[facility]: 10546-650-89 Balanced salt solution irrigation to injected eye [...] motion or count fingers. Avastin, LEFT eye. [facility] 29308-474-05 LOT [id number] EXP 01/19/2024 [place] pain with injection after multiple numbing drops [...] 25 mg/mL ??Route: intravitreal, Site: Left Eye ??[facility]: 23483-962-03 Balanced salt solution irrigation to injected eye [...] motion or count fingers. Avastin, LEFT eye. [facility] [id number] LOT [id number] EXP 01/06/2024 First injection in [place]. ??Poor [...] Primary Hemorrhage Vitreous Left (HCC) Glaucoma Neovascular Glaucoma Neovascular documented in this encounter
--- OUTSIDE RECORDS SUMMARY | 2024-01-03 10:03 | XMS_ITS | Clinical Summary ---
Author Organization [employer] [facility] Address [place], [place] [address] Care Team Providers Care Stave Saw Operator Name Role Phone Marcio Gonzalez MD Primary Care Provider [phone] Allergies Active Allergy Reactions Criticality Noted Date Comments Codeine Other - Describe In Comment Field Medium 07/04/2006 doesn't tolerate Oxycodone Hallucinations High 02/13/2022 Penicillins Rash Medium 07/04/2006 Medications Medication Sig Dispensed Refills Start Date End Date Status acetaminophen (TYLENOL) 325 mg tablet Take 2 Tablets (650 mg) by mouth every 6 hours. Max acetaminophen dose: 4000mg in 24 hrs. 0 02/15/20 22 Active acetic acid 0.25% 0.25 % irrigation APPLY 5 MINUTE SOAK TO WOUND EVERY OTHER DAY AND NEEDED FOLLOWING WOUND CARE ORDERS. 10/20/19 23 Active ammonium lactate 12% topical (LACHYDRIN) 12 % lotion APPLY TO LEGS AND FEET ONCE DAILY. 10/20/19 23 Active BiPapIndications:O bstructive sleep apnea bPAP [...] daily. 180 Tablet 2 09/18/19 24 Active latanoprost (XALATAN) 0.005 % ophthalmic [...] at 7PM 60 Tablet 11/15/19 24 Active ketorolac 0.5 % ophthalmic (ACULAR) solution Place 1 Drop into left eye four times daily. 12/12/19 24 024 Active fluticasone dgd-gavqzxdnqdbn-g ilanterol (Trelegy Ellipta) 100-62.5-25 mcg inhalerIndications :Panlobular emphysema (HC) Inhale 1 Puff by mouth once daily. 180 Each 3 01/01/20 24 Active albuterol HFA (PRO-AIR; VENTOLIN; PROVENTIL) 90 mcg/actuation inhalerIndications :Other emphysema (HC) Inhale 2 Puffs by mouth every 4 hours if needed for Shortness of Breath 1st choice or Wheezing 2nd choice. 18 Each 5 01/01/20 24 Active potassium chloride (Klor-Con M20) 20 mEq extended-release tablet (part/cryst)Indica tions:Edema of right lower extremity Take 1 Tablet (20 mEq) by mouth two times daily with meals. 180 Tablet 3 01/01/20 24 Active atorvastatin (LIPITOR) 40 mg tabletIndications: Other hyperlipidemia Take 1 Tablet (40 mg) by mouth at bedtime. 90 Tablet 3 01/01/20 24 Active traMADoL (ULTRAM) 50 mg tabletIndications: Right leg pain TAKE 1 TABLET BY MOUTH DAILY NEEDED FOR WOUND PAIN OR BACK PAIN 40 Tablet 01/01/20 24 Active magnesium oxide (MAG-OX 400) 400 mg tabletIndications: Low magnesium level Take 1 Tablet (400 mg) by mouth once daily. 90 Tablet 3 01/01/20 24 Active furosemide (LASIX) 20 mg tabletIndications: Edema of right lower extremity Take 1 Tablet (20 mg) by mouth two times daily. 180 Tablet 3 01/01/20 24 Active albuterol HFA (PRO-AIR; VENTOLIN; PROVENTIL) 90 mcg/actuation inhalerIndications :Other emphysema (HC) Inhale 2 Puffs by mouth every 4 hours if needed for Shortness of Breath 1st choice or Wheezing 2nd choice. 18 Each 5 11/09/19 23 024 Discontinued(Re order (E-cancel not sent)) magnesium oxide (MAG-OX 400) 400 mg tabletIndications: Low magnesium level TAKE 1 TABLET BY MOUTH EVERY DAY 90 Tablet 1 12/12/19 23 024 Discontinued(Re order (E-cancel not sent)) potassium chloride (Klor-Con M20) 20 mEq extended-release tablet (part/cryst)Indica tions:Edema of right lower extremity TAKE 1 TABLET (20 MEQ) BY MOUTH TWO TIMES DAILY WITH MEALS. 180 Tablet 11/14/19 24 024 Discontinued(Re order (E-cancel not sent)) atorvastatin (LIPITOR) 40 mg tabletIndications: Other hyperlipidemia TAKE 1 TABLET BY MOUTH AT BEDTIME 90 Tablet 11/14/19 24 024 Discontinued(Re order (E-cancel not sent)) furosemide (LASIX) 20 mg tabletIndications: Edema of right lower extremity TAKE 1 TABLET BY MOUTH TWO TIMES DAILY. 180 Tablet 11/14/19 24 024 Discontinued(Re order (E-cancel not sent)) fluticasone zeo-hdcohjxukwrb-t ilanterol (Trelegy Ellipta) 100-62.5-25 mcg inhalerIndications :Panlobular emphysema (HC) INHALE 1 PUFF BY MOUTH EVERY DAY 180 Each 1 11/14/19 24 024 Discontinued(Re order (E-cancel not sent)) traMADoL (ULTRAM) 50 mg tabletIndications: Right leg pain TAKE 1 TABLET BY MOUTH DAILY NEEDED FOR WOUND PAIN OR BACK PAIN 30 Tablet 11/14/19 24 024 Discontinued traMADoL (ULTRAM) 50 mg tabletIndications: Right leg pain TAKE 1 TABLET BY MOUTH DAILY NEEDED FOR WOUND PAIN OR BACK PAIN 30 Tablet 12/18/19 24 024 Discontinued(Re order (E-cancel not sent)) Active Problems Problem Noted Date Diagnosed Date Alcoholism 01/01/2024 Chronic pain syndrome 01/01/2024 Overview (01/01/2024): Chronic pain due to hip and low back pain. Increased his Tramadol to 40 pills per month today. Marcio Gonzalez MD signed electronically .................... 01/01/2024 History of stroke 07/27/2023 Overview (07/27/2023): left MCA territory ischemic stroke, pmh of HLD, tobacco use, morbid obesity, COPD, BRITNEY and chronic back pain who is following up in stroke clinic today. He had presented to [facility] on 11/09/2018 with difficulty [...] with hypoxia 023 Paroxysmal atrial fibrillation 10/26/2022 Aneurysm of right internal iliac artery 02/14/20 22 Depression, recurrent 08/08/2021 Acute ischemic stroke 11/18/2018 Overview (11/18/2018): Date of stroke was 11/09/18 Word Finding Difficulties Recommended follow up at [facility] Stroke Clinic. Speech therapy, [...] Problem Noted Date Diagnosed Date Resolved Date skilled nursing (current) use of anticoagulants 07/07/2009 09/21/2010 Overview (07/27/2009): INR Goal Range: 1.8 - 2.5 Encounters Date Type Department Care Team Description 01/03/2024 Orders Only [facility] [address] [place] [address] Marcio Gonzalez MD <No scans attached> 01/01/2024 10:00 AM CDT Office Visit [facility] [address] [place] [address] Marcio Gonazlez MD Medicare ANNUAL (subsequent) Visit (78 years) 01/01/2024 Travel 12/18/2023 Refill [facility] [address] [place] [address] Marcio Gonzalez MD Refill Request (Tramadol) 12/04/2023 3:30 PM CDT Office Visit [facility] [address] [place] [address] Ricarda Bautista MD Follow Up (F/U visit/OV,FU CT on chart from [place] no new imaging/PT states feeling alright/Losing sight in eye - might be blockage of artery /Stated all medications are up to date) 12/04/2023 Travel 11/22/2023 Telephone [facility] [address] [place] [address] Ricarda Bautista MD Appointment Request 11/13/2023 10:00 AM CDT Office Visit [facility] [address] [place] [place] [address] Radha Carlin MBBS CV General Cardiology Est (IN PERSON - 4MO ROUTINE CHECK//PCP:Marcio Gonzalez MD/) 11/13/2023 Travel 11/12/[address] [address] Dorian Draper MD Refill Request (Mirtazapine 7.5mg tablet) 11/12/2023 Telephone [facility] [address] [place] [address] Ricarda Bautista MD Appointment Request 11/12/2023 Refill [facility] [address] [place] [address] Marcio Gonzalez MD Refill Request (Klor-con M20, Atorvastatin, Furosemide, Trelegy Ellipta, Tramadol) 10/22/2023 Refill [facility] [address] [place] [address] Dorian Draper MD Refill Request (Mirtazapine 7.5mg) 10/21/[address] [address] Marcio Gonzalez MD Refill Request (Tramadol) from Last 3 Months Immunizations Name Administration Dates Next Due COVID-19 VACCINE SPIKEVAX (M ODERNA 50MCG/0.5ML) 12YO+ PFS 01/17/2023 COVID-19 vaccine (Pfizer-BioNTech 30mcg/0.3mL) P F, [...] Family History Medical History Relation Name Comments Cancer-colon Brother Heart Disease Brother CABG at age 72 Cancer Father facial cancer a t 82. Heart Disease Mother at age 86; ali ve at 98 in 2009 Diabetes Other none Brain cancer Sister 1 Agata of this at 74 Cancer-breast Sister 1 Agata Relation Name Status Comments Brother Alive Father Mother Other Sister 1 Agata Sister 2 Corrina Alive Social History Tobacco Use Types Packs/Day Years Used Date Smoking Tobacco: Every Day Cigarettes 1 60.7 Started: 1963; Last attempted to quit: 07/30/2023 Smokeless Tobacco: Never Tobacco Cessation:Ready to Q uit: No; Counseling Given: No Comments:15-20 cigarettes a day- updated 11/13/2023 Alcohol Use Standard Drinks/Week Comments Yes 14 (1 standard drink = 0.6 oz pu re alcohol) 2 beers a day PHQ-2 Answer Date Recorded PHQ-2 TOTAL SCORE 2 01/01/2024 Social Connections Answer Date Recorded Frequency of Communication with Friends and Fami ly 0 07/27/2023 Alcohol Use Answer Date Recorded How often do you have a drink containing alcohol ? 4 01/01/2024 How many drinks containing a lcohol do you have on a typical day when you are drinking? 0 01/01/2024 How often do you have five or more drinks on one occasion? 0 01/01/2024 Financial Resource Strain Answer Date R ecorded [...] Sign Reading Time Taken Comments Blood Pressure 126/73 01/01/2024 10:15 AM CDT Pulse 86 01/01/2024 10:15 AM CDT Temperature 36.7 ??C (98 ??F) 01/01/2024 10: 15 AM CDT Respiratory Rate 18 05/02/2023 10:5 7 AM MANAGER SQL Oxygen Saturation 91% 01/01/2024 10: 15 AM CDT Inhaled Oxygen Concentration - - Weight 129.6 kg (285 lb 11.2 oz) 2023 10:15 AM CDT Height 185.4 cm (6' 1) 12/04/2023 3:35 PM CDT Body Mass Index 37.69 12/04/2023 3:35 PM CDT Plan of Treatment Upcoming Encounters Date Type Department Care Team (Late st Contact Info) Description 01/21/2024 8:15 AM CDT Orders Only [facility] [address] [place] [address] Lab, [facility] Maintenance Due Date Last Done Comments Zoster (shingles) series for age 50+ (1 of 2) 12/15/1995 Tetanus booster 03/16/2018 03/16/2008, 06/08, 05/22/1996 RSV vaccine for adults or (1 - 1-dose 75+ series) [address] (for lung CA) ag e 50-80 11/01/2022 11/01/2021, 04/23/2018 COVID-19 vaccine series ( season) 2023 01/17/2023, 01/10/2022, 08/23/2021, Additional history exists Influenza for age 65+ 12/09/2023 01/17/2023 , 01/10/2022, 02/22/2021, Additional history exists BMI (ht and wt on same day) for age 18+ 12/03/2024 12/04/2023, 05/22/2023, 02/27/2023, Additional history exists Medicare Wellness for age 65+ 01/01/2025, 11/08/2022, 02/22/2021, Additional history exists Depression screening for age 12+ 01/02/2025 01/03/2024, 01/01/2024, 11/09/2022, Additional history exists Tdap Completed 03/16/2008, 07/04/2006 Pneumococcal series for age 65+ Completed 05/19/2015, 06/05/2013, 03/14/2000 Hepatitis C screening for ag e 18-79 Completed 02/08/2022 Medical Devices Implanted Type Area Laundry Operator Finishing Device Identifier Shelf Expiration Date Model / Serial / Lot Tissue Pericardium 0.8x8cm Photofix Bovine - [id number] Implanted:Qty: 1 on 02/13/2022 by Kael Hernandez MD at [facility] Cv Implants Right: Groin [employer] 02/27/2022 PFP 0.8X8 / / [id number] Stent Aaa [id number] Excluder Ibc - [id number] Implanted:Qty: 1 on 02/13/2022 by Kael Hernandez MD at [facility] Right: Iliac Artery [employer] 2024 [id number] / [id number] / Stent Aaa [id number] Excluder Iic - [id number] Implanted:Qty: 1 on 02/13/2022 by Kael Hernandez MD at [facility] Right: Iliac Artery [employer] 04/20/2024 [id number] / [id number] / Procedures Procedure Name Priority Date/Time Associated Diagnosis Comments PSA (TOTAL) ([facility]) Routine 01/01/2024 1 1:25 AM CDT Screening for prostate cancer HEMOGLOBIN A1C Routine 01/01/2024 11:23 AM CDT Hyperglycemia MAGNESIUM Routine 01/01/2024 11:23 AM CDT Edema of right lower extremity BASIC METABOLIC PANEL Routine 01/01/2024 11:23 AM CDT Edema of right lower extremity LIPID PANEL W REFLEX MEASURED LDL Routine 01/01/2024 11:23 AM CDT Other hyperlipidemia EKG 12 LEAD Routine 11/13/2023 10:44 AM [...] Recently Relevant to Health Maintenance Results * (ABNORMAL) PSA (TOTAL) ([facility]) (01/01/2024 11:25 AM CDT) PSA, TOTAL 5.16(H) < OR = 4.00 ng/mL [facility] Comment: The total PSA value from this assay system is standardized against the WHO standard. The test result will be approximately 20% lower when compared to the equimolar-standardized total PSA (Case Naman). Comparison of serial PSA results should be interpreted with this fact in mind. This test was performed using the Siemens chemiluminescent method. Values obtained from different assay methods cannot be used interchangeably. PSA levels, regardless of value, should not be interpreted as absolute evidence of the presence or absence of disease. Blood BLOOD SPECIMEN / Unknown 01/01/2024 11:25 AM CDT 01/01/2024 11:25 AM CDT Marcio Gonzalez MD SEND OUTS Performing Organization Address City/[facility]/ZIP Co de Phone Number The Personal Bee [facility] [address] [place] [address], [facility] [address] [place] [address] * (ABNORMAL) HEMOGLOBIN A1C SCREENING (01/01/2024 11:23 AM CDT) HEMOGLOBIN A1C 5.8(H) <5.7 % of total Hgb dBMEDx tyra [place] Comment: For someone without known diabetes, a hemoglobin A1c value between 5.7% and 6.4% is consistent with prediabetes and should be confirmed with a follow-up test. For someone with known diabetes, a value <7% indicates that their diabetes is well controlled. A1c targets should be individualized based on duration of diabetes, age, comorbid conditions, and other considerations. This assay result is consistent with an increased risk of diabetes. Currently, no consensus exists regarding use of hemoglobin A1c for diagnosis of diabetes for children. ? This test was performed on the Lindsey leland c503 platform. Effective 06/13/23, a change in test platforms from the Acosta Balancer Scale to the Lindsey leland c503 may have shifted HbA1c results compared to historical results. Based on laboratory validation testing conducted at [facility], the Lindsey platform relative to the Acosta platform had an average increase in HbA1c value of < or = 0.3%. This difference is within accepted variability established by the National Glycohemoglobin Standardization Program. Note that not all individuals will have had a shift in their results and direct comparisons between historical and current results for testing conducted on different platforms is not recommended. Blood BLOOD SPECIMEN / Unknown 01/01/2024 11:23 AM CDT 01/01/2024 11:23 AM CDT Marcio Gonzalez MD CHEMISTRY The Personal [employer] [facility] [address] [place] [address], [facility] [address] [place] [address] * (ABNORMAL) LIPID PANEL W REFLEX MEASURED LDL (01/01/2024 11:23 AM CDT) [facility] Signature CHOLESTEROL, TOTAL 109 <200 mg/dL [facility] HDL CHOLESTEROL 29(L) > OR = 40 mg/dL [facility] TRIGLYCERIDES 140 <150 mg/dL [facility] LDL-CHOLESTEROL 58 mg/dL (calc) dBMEDx- o[facility] J[facility] Comment: Reference range: <100 Desirable range <100 mg/dL for primary prevention; ?? <70 mg/dL for patients with CHD or diabetic patients with > or = 2 CHD risk factors. LDL-C is now calculated using the Hector-Nevin calculation, which is a validated novel method providing better accuracy than the Friedewald equation in the estimation of LDL-C. Hector WICK et al. ISHMAEL. 2013;310(19): 1129-3431 (http://education.Cyzone/faq/HQX926) CHOL/HDLC RATIO 3.8 <5.0 (calc) [facility] NON HDL CHOLESTEROL 80 <130 mg/dL (calc) [facility]BM[facility]x- [facility] J[facility] Comment: For patients with diabetes plus 1 major ASCVD risk factor, treating to a non-HDL-C goal of <100 mg/dL (LDL-C of <70 mg/dL) is considered a therapeutic option. Blood BLOOD SPECIMEN / Unknown 01/01/2024 11:23 AM CDT 01/01/2024 11:23 AM CDT Marcio Gonzalez MD CHEMISTRY The Personal [employer] [facility] [address] [place] [address], [place] [phone] [facility] [address] [place] [address] * MAGNESIUM (01/01/2024 11:23 AM CDT) MAGNESIUM 2.0 1.5 - 2.5 mg/dL [facility] Blood BLOOD SPECIMEN / Unknown 01/01/2024 11:23 AM CDT 01/01/2024 11:23 AM CDT Marcio Gonzalez MD CHEMISTRY The Personal Bee [facility] [address] [place] [address], [facility] [address] [place] [address] * (ABNORMAL) BASIC METABOLIC PANEL (01/01/2024 11:23 AM CDT) GLUCOSE 107(H) 65 - 99 mg/dL [facility] Comment: ? Fasting reference interval For someone without known diabetes, a glucose value between 100 and 125 mg/dL is consistent with prediabetes and should be confirmed with a follow-up test. UREA NITROGEN (BUN) 14 7 - 25 mg/dL [facility] CREATININE 1.14 0.70 - 1.28 mg/dL [facility] EGFR 66 > OR = 60 mL/min/1. 73m2 [facility] BUN/CREATININE RATIO SEE NOTE: 6 22 (calc) [facility] Comment: ?? Not Reported: BUN and Creatinine are within ?? reference range. ? SODIUM 140 135 - 146 mmol/L [facility] POTASSIUM 4.6 3.5 - 5.3 mmol/L [facility] CHLORIDE 100 98 - 110 mmol/L [facility] CARBON DIOXIDE 29 20 - 32 mmol/L [facility] ELECTROLYTE BALANCE 11 7 - 17 mmol/L (calc) [facility] CALCIUM 9.5 8.6 - 10.3 mg/dL [facility] Blood BLOOD SPECIMEN / Unknown 01/01/2024 11:23 AM CDT 01/01/2024 11:23 AM CDT Marcio Gonzalez MD CHEMISTRY The Personal Bee [facility] [address] [place] [address], [facility] [address] [place] [address] * EKG 12 LEAD (11/13/2023 10:44 AM CDT) Interpretation Normal sinus rhythm Normal ECG Ventricular Rate 63 BPM Atrial Rate 63 BPM P-R Interval 180 ms QRS Duration 112 ms QT 408 ms QTc 417 ms P Rutherford 76 degrees R Rutherford 46 degrees T Rutherford 50 degrees 11/13/2023 10:4 4 AM CDT 11/13/2023 5:50 PM CDT Radha Carlin [facility] EKG ORD * ANTI HCV (02/08/2022 11:20 AM CDT) HEPATITIS C ANTIBODY Non-React mandie Non-React mandie 02/09/2022 2:56 PM CDT [facility] Comment:Antibodies to HCV no t detected; does not exclude the possibility of exposure to HCV. Blood BLOOD SPECIMEN / Unknown Venipuncture / Unknown 02/08/2022 11:20 AM CDT 02/08/2022 11:27 AM CDT Marcio Gonzalez MD SEND OUTS Performing Organization Address City/[facility]/ZIP Co de Phone Number [facility] [address] [place] [address], [place] * CT CHEST SCREENING LOW DOSE [...] @11/02/2021 8:56:18 AM Pediatric and Body Radiology [email or web address] Narrative 11/02/2021 9:43 AM CDT For [...] Documents on File Type Date Recorded Patient Adult Crossing Guard Expl anation Treatment Guidelines 02/11/2022 * Full Code (Latest Code Status on File) Date Activated Date Inactivated Comments 02/13/2022 1:00 PM 02/14/2022 5:39 PM Question Answer Comments Code Status Discussion: Reviewed Preferences * Full Code Date Activated Date Inactivated Comments 02/13/2022 6:05 AM 02/13/2022 12:59 PM Question Answer Comments Code Status Discussion: Unable to Assess Preferences, Provider to review later Care Teams Stave Saw Operator Relationship Specialty Start Date End Date [place] [address] PCP - General Family Practice 12/20/15
--- OUTSIDE RECORDS SUMMARY | 2024-01-03 10:03 | XMS_ITS | Encounter Summary ---
Author Organization [facility] Address [address] [place] [address] Care Team Providers Care Consumer Analyst Name Role Phone Unavailable Primary Care Provider Unavailabl e Encounter Details Date Type Department Care Team (Late st Contact Info) Description 10/19/2023 Ancillary Procedure Department of Ophthalmology Social History Tobacco Use Types Packs/Day Years Used Date Smoking Tobacco: Unknown [facility] Utilities Answer Date Recorded In the past 12 months has th e electric, gas, oil, or water [employer] threatened to shut off services in your [...] CDT Ancillary Procedure Department of Ophthalmology in [place], [place] [address] [place] [address] Wero Gasca M.D. [address] [place] [phone] 01/11/2024 9:45 AM CDT Office Visit Department of Ophthalmology in [place], [place] [address] [place] [address] Doc Ferris M.D. [address] [place] [phone] 01/24/2024 8:20 AM CDT Appointment Outpatient Procedure Center in [address] [phone] Suri Izquierdo M.D. [address] [place] [phone] documented as of this encounter Procedures Procedure Name Priority Date/Time Associated Diagnosis Comments OPHTHALMOLOGY IMAGE EXAM Routine 10/19/2023 12:00 AM CDT documented in this encounter Results * Eyes US-Eye O-Dxak-Mzypvomermkqz Image Exam (10/19/2023 12:00 AM CDT) Narrative [...]
--- OUTSIDE RECORDS SUMMARY | 2024-01-03 10:03 | XMS_ITS | Encounter Summary ---
Author Organization [facility] Address [address] [place] [address] Care Team Providers Care Card Lacer Jacquard Name Role Phone Unavailable Primary Care Provider Unavailabl e Reason for Referral * Outpatient (Routine) - Authorized Specialty Diagnoses / Procedures Referred By Janeth phillips Referred To Contact Diagnoses Glaucoma Neovascular Procedures Intravitreal Injection, Pharmacologic Agent - OS - Left Eye Suri Izquierdo M.D. 200 [place] [address] [facility] Region Referral ID Status Reason Start Date Expiration Date V isits Requested Visits Authorized [id number] Authorized 10/19/2023 10/18/2024 5 5 Reason for Visit * Outpatient (Routine) - Authorized Specialty Diagnoses / Procedures Referred By Janeth phillips Referred To Contact Diagnoses Glaucoma Neovascular Procedures Intravitreal Injection, Pharmacologic Agent - OS - Left Eye Suri Izquierdo M.D. [address] [place] [address] [facility] Region Referral ID Status Reason Start Date Expiration Date V isits Requested Visits Authorized [id number] Authorized 10/19/2023 10/18/2024 5 5 Encounter Details Date Type Department Care Team (Latest Contact Info) Description 11/22/2023 9:02 AM CDT - 11/22/2023 11:59 PM CDT Hospital Encounter Outpatient Procedure Center in [place] [address] [place] [address] Suri Izquierdo M.D. [address] [place] [address] Glaucoma Neovascular Discharge Disposition: Home or Self [...] CDT Ancillary Procedure Department of Ophthalmology in [place], [place] [address] [place] [address] Wero Gasca M.D. [address] [place] [phone] 01/11/2024 9:45 AM CDT Office Visit Department of Ophthalmology in [place], [place] [address] [place] [address] Doc Ferris M.D. [address] [place] [phone] 01/24/2024 8:20 AM CDT Appointment Outpatient Procedure Center in [address] [phone] Suri Izquierdo M.D. [address] [place] [phone] documented as of this encounter Procedures Procedure [...] 25 mg/mL ??Route: intravitreal, Site: Left Eye ??[facility]: [id number] Balanced salt solution irrigation to injected eye [...] motion or count fingers. Avastin, LEFT eye. [facility] [phone] LOT [id number] EXP 01/06/2024 First injection in [place]. ??Poor [...]
--- OUTSIDE RECORDS SUMMARY | 2024-01-03 10:03 | XMS_ITS | Encounter Summary ---
Author Organization [facility] Address [address] [place] [address] Care Team Providers Care Oral And Maxillofacial Surgery Name Role Phone Unavailable Primary Care Provider Unavailabl e Reason for Referral * Outpatient (Routine) - Authorized Specialty Diagnoses / Procedures Referred By Janeth phillips Referred To Contact Vascular Medicine Diagnoses Ischemia Retina Occlusion Carotid Artery Left Suri Izquierdo M.D. 200 [place] [address] [facility] Referral ID Status Reason Start Date Expiration Date V isits Requested Visits Authorized [id number] Authorized 11/03/2023 05/04/2025 1 1 * Outpatient (Routine) - Closed Specialty Diagnoses / Procedures Referred By Janeth phillips Referred To Contact Ophthalmology Suri Izquierdo M.D. 200 [place] [address] [facility] Referral ID Status Reason Start Date Expiration Date Visits Re quested Visits Authorized [id number] Closed 11/02/2023 05/03/2025 1 1 Reason for Visit * Reason Comments Occlusion Carotid Artery Lef * Outpatient (Routine) - Closed Specialty Diagnoses / Procedures Referred By Janeth phillips Referred To Contact Ophthalmology Suri Izquierdo M.D. 200 [place] [address] [facility] Referral ID Status Reason Start Date Expiration Date Visits Re quested Visits Authorized [id number] Closed 10/23/2023 04/23/2025 1 1 Encounter Details Date Type Department Care Team (Latest Contact Info) Description 11/02/2023 12:45 PM CDT Office Visit Department of Ophthalmology in [place], [place] [address] [place] [phone] Suri Izquierdo M.D. [address] [place] [phone] Hemorrhage Vitreous Left (HCC) (Primary Dx); Ischemia [...] your living situation today? I have a [facility] place to live 07/25/2023 Sex [...] understanding.He is scheduled with neurology here at [place] in December. The patient plans to schedule an appointment with his vascular physician in the [facility], and I have placed a [...] last injection with OCT macula. Injection Location: webtide injection slot in [place]? Left eye Staffed with Dr. Herrera on 10/19/23 Patient discussed and seen with Dr. Calderon today. Suri Izquierdo M.D. PGY-2 Ophthalmology Resident documented in this encounter Plan of Treatment Upcoming Encounters Date Type Department Care Team (Latest Contact Info) Description 01/11/2024 9:15 AM CDT Ancillary Procedure Department of Ophthalmology in [place], [place] [address] [place] [phone] Wero Gasca M.D. [address] [place] [address] 01/11/2024 9:45 AM CDT Office Visit Department of Ophthalmology in [place], [place] [address] [place] [phone] Doc Ferris M.D. [address] [place] [phone] 01/24/2024 8:20 AM CDT Appointment Outpatient Procedure Center in [address] [phone] Suri Izquierdo M.D. [address] [place] [address] Scheduled Referrals Name Type Priority Associated Diagnoses [...]
--- OUTSIDE RECORDS SUMMARY | 2024-01-03 10:03 | XMS_ITS | Encounter Summary ---
Author Organization [facility] Address [address] [place] [address] Care Team Providers Care Sec Accountant Name Role Phone Unavailable Primary Care Provider Unavailabl e Reason for Referral * Outpatient (Routine) - Authorized Specialty Diagnoses / Procedures Referred By Janeth phillips Referred To Contact Diagnoses Glaucoma Neovascular Procedures Intravitreal Injection, Pharmacologic Agent - OS - Left Eye Suri Izquierdo M.D. [address] [place] [address] [facility] Region Referral ID Status Reason Start Date Expiration Date V isits Requested Visits Authorized [id number] Authorized 10/19/2023 10/18/2024 5 5 Reason for Visit * Outpatient (Routine) - Authorized Specialty Diagnoses / Procedures Referred By Janeth phillips Referred To Contact Diagnoses Glaucoma Neovascular Procedures Intravitreal Injection, Pharmacologic Agent - OS - Left Eye Suri Izquierdo M.D. [address] [place] [address] [facility] Region Referral ID Status Reason Start Date Expiration Date V isits Requested Visits Authorized [id number] Authorized 10/19/2023 10/18/2024 5 5 Encounter Details Date Type Department Care Team (Latest Contact Info) Description 10/23/2023 1:51 PM CDT - 10/23/2023 2:53 PM CDT Hospital Encounter Outpatient Procedure Center in [place], [place] [address] [place] [address] Suri Izquierdo M.D. [address] [place] [address] Glaucoma Neovascular Discharge Disposition: Home or Self Care Social History Tobacco Use Types Packs/Day Years Used Date Smoking Tobacco: Unknown [facility] Utilities Answer Date Recorded In the past 12 months has th e [employer], gas, oil, or water [employer] threatened to shut off services in your [...] your living situation today? I have a [facility] place to live 07/25/2023 Sex [...] CDT Ancillary Procedure Department of Ophthalmology in [place], [place] [address] [place] [address] Wero Gasca M.D. 200 [place] [address] 01/11/2024 9:45 AM CDT Office Visit Department of Ophthalmology in [place], [place] [address] [place] [address] Doc Ferris M.D. [address] [place] [address] 01/24/2024 8:20 AM CDT Appointment Outpatient Procedure Center in [address] [phone] Suri Izquierdo M.D. [address] [place] [phone] documented as of this encounter Procedures Procedure [...] 25 mg/mL ??Route: intravitreal, Site: Left Eye ??[facility]: [id number] Balanced salt solution irrigation to injected eye [...] and return schedule given if requested. MEHRDAD [id number] Exp 01/06/24 Shelia Moody M.D. OPHTH CLINIC [...]
--- OUTSIDE RECORDS SUMMARY | 2024-01-03 10:03 | XMS_ITS | Encounter Summary ---
Author Organization [facility] Address [address] [place] [address] Care Team Providers Care Sharepoint Consultant Name Role Phone Unavailable Primary Care Provider Unavailabl e Encounter Details Date Type Department Care Team (Latest Contact Info) Description 10/18/2023 Clinical Communication Department of Ophthalmology in [place], [place] [address] [place] [address] Provider, Unknown Social History Tobacco Use Types Packs/Day Years Used Date Smoking Tobacco: Unknown [facility] Utilities Answer Date Recorded In the past 12 months has [facility] electric, gas, oil, or water company [...] your living situation today? I have a [facility] place to live 07/25/2023 Sex and [...] CDT Ancillary Procedure Department of Ophthalmology in [place], [place] [address] [place] [address] Wero Gasca M.D. [address] [place] [phone] 01/11/2024 9:45 AM CDT Office Visit Department of Ophthalmology in [place], [place] [address] [place] [address] Doc Ferris M.D. [address] [place] [phone] 01/24/2024 8:20 AM CDT Appointment Outpatient Procedure Center in [address] [phone] Suri Izquierdo M.D. [address] [place] [phone] documented as of this encounter Visit Diagnoses Not on filedocumented in this encounter
--- OUTSIDE RECORDS SUMMARY | 2024-01-03 10:03 | XMS_ITS | Encounter Summary ---
Author Organization [facility] Address [address] [place] [address] Care Team Providers Care Pharmaceutical Laboratory Technician Name Role Phone Unavailable Primary Care Provider Unavailabl e Encounter Details Date Type Department Care Team (Late st Contact Info) Description 10/23/2023 2:20 PM CDT Ancillary Procedure Department of Ophthalmology in [place], [place] [address] [place] [address] Social History Tobacco Use Types Packs/Day Years Used Date Smoking Tobacco: Unknown [facility] Utilities Answer Date Recorded In [...] living situation today? I have a [facility] place to live 07/25/2023 Sex [...] CDT Ancillary Procedure Department of Ophthalmology in [place], [place] [address] [place] [address] Wero Gasca M.D. [address] [place] [phone] 01/11/2024 9:45 AM CDT Office Visit Department of Ophthalmology in [place], [place] [address] [place] [address] Doc Ferris M.D. [address] [place] [phone] 01/24/2024 8:20 AM CDT Appointment Outpatient Procedure Center in [address] [phone] Suri Izquierdo M.D. [address] [place] [address] documented as of this encounter Visit Diagnoses Not on filedocumented in this encounter
--- OUTSIDE RECORDS SUMMARY | 2024-01-03 10:03 | XMS_ITS | Encounter Summary ---
Author Organization [facility] Address [address] [place] [address] Care Team Providers Care Table Setter Name Role Phone Unavailable Primary Care Provider Unavailabl e Encounter Details Date Type Department Care Team (Latest Contact Info) Description 10/19/2023 Clinical Communication Department of Ophthalmology in [place], [place] [address] [place] [address] Suri Izquierdo M.D. [address] [place] [address] Social History Tobacco Use Types Packs/Day Years [...] CDT Ancillary Procedure Department of Ophthalmology in [place], [place] [address] [place] [address] Wero Gasca M.D. [address] [place] [phone] 01/11/2024 9:45 AM CDT Office Visit Department of Ophthalmology in [place], [place] [address] [place] [address] Doc Ferris M.D. [address] [place] [phone] 01/24/2024 8:20 AM CDT Appointment Outpatient Procedure Center in [address] [phone] Suri Izquierdo M.D. [address] [place] [address] documented as of this encounter Visit Diagnoses Not on filedocumented in this encounter
== END 2024-01-03 10:01 | disposition home or self-care (01) ==
LOC: WOUND 10:00
PROVIDERS: PCP Family Medicine; Visit Provider Nurse Practitioner Family
DX: I87.311 Chronic venous hypertension (idiopathic) with ulcer of right lower extremity (principal); I89.0 Lymphedema, not elsewhere classified; L97.212 Non-pressure chronic ulcer of right calf with fat layer exposed; Z72.0 Tobacco use
CPT/HCPCS: 11042

== ENCOUNTER 2024-01-17 10:01 | Outpatient (CLI) | payer MEDICARE, BC, SELFPAY ==
--- OUTSIDE RECORDS SUMMARY | 2024-01-17 10:06 | XMS_ITS | Encounter Summary ---
Author Organization [facility] Address [address] [place] [address] Care Team Providers Care Knapsack Sprayer Name Role Phone Unavailable Primary Care Provider Unavailabl e Encounter Details Date Type Department Care Team (Latest Contact Info) Description 01/09/2024 Clinical Communication Department of Ophthalmology in [place], [place] [address] [place] [address] Doc Ferris M.D. [address] [place] [address] Social History Tobacco Use Types Packs/Day Years Used Date Smoking Tobacco: Every Day Cigarettes Smokeless Tobacco: Never [facility] Utilities Answer Date Recorded In [...] Department Care Team (Latest Contact Info) Description 01/24/2024 8:20 AM CDT Appointment Outpatient Procedure Center in [address] [phone] Suri Izquierdo M.D. [address] [place] [address] 02/26/2024 1:00 PM BULL DRIVER Ancillary Procedure Department of Ophthalmology in [place], [place] [address] [place] [address] Suri Izquierdo M.D. [address] [place] [phone] 02/26/2024 1:30 PM BULL DRIVER Ancillary Procedure Department of Ophthalmology in [place], [place] [address] [place] [address] 02/26/2024 2:00 PM BULL DRIVER Ancillary Procedure Department of Ophthalmology in [place], [place] [address] [place] [address] Suri Izquierdo M.D. [address] [place] [phone] 02/26/2024 2:15 PM BULL DRIVER Ancillary Procedure Department of Ophthalmology in [place], [place] [address] [place] [phone] Suri Izquierdo M.D. [address] [place] [phone] documented as of this encounter Visit Diagnoses Not on filedocumented in this encounter
--- OUTSIDE RECORDS SUMMARY | 2024-01-17 10:06 | XMS_ITS ---
Author Organization [facility] Address [address] [place] [address] Care Team Providers Care Tubing Oiler Name Role Phone Unavailable Unavailable Unavailable Surgery Details Not on file Complications Check Surgery Details section. Procedure Estimated Blood Loss Check Surgery Details section. Procedure Findings Check Surgery Details section. Procedure Specimens Taken Check Surgery Details section.
--- OUTSIDE RECORDS SUMMARY | 2024-01-17 10:06 | XMS_ITS | Clinical Summary ---
Author Organization [facility] Address [address] [place] [address] Care Team Providers Care Childcare Aide Name Role Phone Unavailable Primary Care Provider Unavailabl e Source Comments Patient records contain information from all sites at [facility]. For routine questions regarding patient records, call [phone] during business hours, M-F 8:00 AM - 5:00 PM Central Time. Record requests for emergency care only can be directed to [phone] at any time.[facility] Allergies Active Allergy Reactions Criticality Noted [...] mouth 2 (two) times a day. Active atropine (Isopto Atropine) 1 % ophthalmic [...] times a day. 270 capsule 12/19/2023 Active brimonidine (Alphagan) 0.2 % ophthalmic solution ADMINISTER 1 DROP INTO THE LEFT EYE 3 TIMES A DAY. 5 mL 3 01/17/2024 Active brimonidine (Alphagan) 0.2 % ophthalmic solution Administer 1 drop into the left eye 3 (three) times a day. 5 mL 3 10/19/2023 Discontinue d(Reorder) Hospital, Clinic, or Other Facility Administered Medication [...] Encounters Date Type Department Care Team Description 01/16/2024 Refill Department of Ophthalmology in [place], [place] [address] [place] [address] Suri Izquierdo M.D. Med Refill 01/11/2024 9:45 AM CDT Office Visit Department of Ophthalmology in [place], [place] [address] [place] [address] Doc Ferris M.D. 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 12/27/2023 1:01 PM CDT - 12/27/2023 11:59 PM CDT Hospital Encounter Outpatient Procedure Center in [address] [phone] Suri Izquierdo M.D. Glaucoma Neovascular Discharge Disposition: Home or Self Care 12/19/2023 10:00 AM CDT Comprehensive Visit Department of Neurology in [address] [address] Jojo Barrientos M.D. Occlusion Carotid Artery Left; Ischemia Retina; Glaucoma Neovascular; Neuropathy Optic Ischemic Bilateral 2023 12:15 PM CDT Clinical Communication Virtual Review in [place], [place] [address] [place] [address] Pre-visit Intake 12/13/2023 10:00 AM CDT Procedure visit Department of Ophthalmology in [address] [address] Wero Gasca M.D. 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 12/07/2023 Clinical Communication Department of Ophthalmology in [address] [address] Carl Petty 12/07/2023 Documentation Department of Ophthalmology in [address] [address] Suri Izquierdo M.D. 11/30/2023 1:30 PM CDT Office Visit Department of Ophthalmology in [place], [place] [address] [place] [address] Suri Izquierdo M.D. 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 Hemorrhage Vitreous Left (HCC) 11/30/2023 12:05 AM CDT Ancillary Procedure Department of Ophthalmology 11/30/2023 Ancillary Procedure Department of Ophthalmology 11/22/2023 9:02 AM CDT - 11/22/2023 11:59 PM CDT Hospital Encounter Outpatient Procedure Center in [address] [address] Suri Izquierdo M.D. Glaucoma Neovascular Discharge Disposition: Home or Self Care 11/09/2023 12:00 PM CDT Office Visit Department of Ophthalmology in [place], [place] [address] [place] [address] Suri Izquierdo M.D. Hemorrhage Vitreous Left (HCC) (Primary Dx); Glaucoma Neovascular; Occlusion Carotid Artery Left 11/02/2023 12:45 PM CDT Office Visit Department of Ophthalmology in [place], [place] [address] [place] [address] Suri Izquierdo M.D. Hemorrhage Vitreous Left (HCC) (Primary Dx); Ischemia Retina; Occlusion Carotid Artery Left 10/23/2023 2:54 PM CDT - 10/23/2023 11:59 PM CDT Hospital Encounter Outpatient Procedure Center in [place], [place] [address] [place] [address] Shelia Laughlin M.D. Discharge Disposition: Home or Self Care 10/23/2023 2:20 PM CDT Ancillary Procedure Department of Ophthalmology in [place], [place] [address] [place] [phone] 10/23/2023 1:51 PM CDT - 10/23/2023 2:53 PM CDT Hospital Encounter Outpatient Procedure Center in [place], [place] [address] [place] [phone] Suri Izquierdo M.D. Glaucoma Neovascular Discharge Disposition: Home or Self Care 10/23/2023 12:30 PM CDT Office Visit Department of Ophthalmology in [place], [place] [address] [place] [phone] Suri Izquierdo M.D. Occlusion Carotid Artery Left (Primary Dx); Ischemia Retina; Glaucoma Neovascular; Neuropathy Optic Ischemic Bilateral 10/23/2023 Orders Only Department of Ophthalmology in [place], [place] [address] [place] [phone] Anabel Lang C.O.A. Glaucoma Neovascular (Primary Dx) 10/19/2023 2:00 PM CDT Ancillary Procedure Department of Ophthalmology in [place], [place] [address] [place] [phone] Suri Izquierdo M.D. Glaucoma Neovascular; Hemorrhage Vitreous Left (HCC) 10/19/2023 10:30 AM CDT Comprehensive Visit Department of Ophthalmology in [place], [place] [address] [place] [address] Suri Izquierdo M.D. Glaucoma Neovascular (Primary Dx); Hemorrhage Vitreous Left (HCC) 10/19/2023 Orders Only Department of Ophthalmology in [place], [place] [address] [place] [phone] Juan David Cabrales M.D. Glaucoma Neovascular (Primary Dx); Hemorrhage Vitreous Left (HCC) 10/19/2023 Clinical Communication Department of Ophthalmology in [place], [place] [address] [place] [phone] Suri Izquierdo M.D. 10/19/2023 Ancillary Procedure Department of Ophthalmology 10/18/2023 Clinical Communication Department of Ophthalmology in [place], [place] [address] [place] [phone] Provider, Unknown from Last 3 Months Social History Tobacco Use Types Packs/Day Years Used Date Smoking Tobacco: Every Day Cigarettes Smokeless Tobacco: Never [facility] Utilities [...] AM CDT Appointment Outpatient Procedure Center in [address] [address] Suri Izquierdo M.D. [address] [place] [phone] 02/26/2024 1:00 PM SUGAR MILL WORKER Ancillary Procedure Department of Ophthalmology in [place], [place] [address] [place] [address] Suri Izquierdo M.D. [address] [place] [phone] 02/26/2024 1:30 PM SUGAR MILL WORKER Ancillary Procedure Department of Ophthalmology in [place], [place] [address] [place] [phone] 02/26/2024 2:00 PM SUGAR MILL WORKER Ancillary Procedure Department of Ophthalmology in [place], [place] [address] [place] [phone] Suri Izquierdo M.D. [address] [place] [phone] 02/26/2024 2:15 PM SUGAR MILL WORKER Ancillary Procedure Department of Ophthalmology in [place], [place] [address] [place] [phone] Suri Izquierdo M.D. [address] [place] [phone] Health Maintenance Due Date Last Done Comments Hepatitis C Screening 1945 Tobacco Cessation counseling 1945 Zoster Vaccines (1 of 2) 12/15/1995 DTaP,Tdap,and Td Vaccines (3 - Td or Tdap) 03/16/2018 03/16/2008, 07/04/2006 RSV vaccine - (32-3 6 weeks) or 60+ years (1 - 1-dose 75+ series) 2020 Depression Screening (Annual PHQ-2) 04/09/2023 COVID-19 Vaccine (6 - 2023-2 5 season) 2023 01/10/2022, 08/23/2021, 02/15/2021, Additional [...] Completed 12/27/2023 Medical Devices Implanted Type Area Machine Welt Butter Device Identifier Shelf Expiration Date Model / Serial / Lot J J Sig Patella Oval 41 - Briones [id number] Implanted:Qty: 1 on 10/23/2011 Knee Implant Other/Legacy - See Implant Description [employer] Description:Device Manufactu rer - [employer]. Body Location - Other. Left. Device Status Text - [id number] [id number]. Depuy-Insert Stabilized Sz 5 12.5mm - Briones [id number] Implanted:Qty: 1 on 10/23/2011 Knee Implant Other/Legacy - See Implant Description [employer] Description:Device Manufactu rer - [employer]. Body Location - Other. Left. Device Status Text - [id number] [id number]. Depuy-Tib Tray Mod Cement Cocr Sz5 - Briones [id number] Implanted:Qty: 1 on 10/23/2011 Knee Implant Other/Legacy - See Implant Description [employer] Description:Device Manufactu rer - [employer]. Body Location - Other. Left. Device Status Text - [id number] [id number]. Sigma Post Stab.W Lug Fem Sz 6 Lt - Briones [id number] Implanted:Qty: 1 on 10/23/2011 Knee Implant Other/Legacy - See Implant Description [employer] Description:Device Manufactu rer - [employer]. Body Location - Other. Left. Device Status Text - [id number] [id number]. Cement Bone Large - Briones [id number] Implanted:Qty: 2 on 10/23/2011 Misc Other [place] Description:Device Manufactu rer - [place] [employer].. Device Status Text - [id number]. Procedures [...] 25 mg/mL ??Route: intravitreal, Site: Left Eye Balanced salt solution irrigation to injected eye [...] motion or count fingers. Avastin, LEFT eye. [facility] 49054-467-48 LOT [id number] EXP 01/19/2024 Parker pain with injection after multiple numbing drops and Q-tips. Would recommend subconj lido/epi No complications. Nicholas Carlos MD Suri Izquierdo M.D. [facility] P ROCEDURES * Anderson Retinal Photocoagulation [...] post procedure care education. Wero Hall M.D. [facility] P ROCEDURES Performing Organization Address [facility] Co de Phone Number [facility] NON-[facility] * B-Scan Ultrasound - OS - Left Eye (11/30/2023 2:12 PM CDT) Narrative OPHTHALMOLGY NON-IMAGING ORDERS - 12/03/2023 3:25 PM CDT 11/30/2023 B-scan Left Eye: Moderate to dense vitreous opacities mostly inferiorly, likely retinal detachment nasally from approximately 130E - 430E with possible break visualized on L430. Retina appears otherwise attached, no mass noted. Suri Izquierdo M.D. [facility] Performing Organization Address City/[facility] Co de Phone Number OPHTHALMOL NON-IMAGING ORDERS * Eyes US-Eye K-Pquu-Bvlizwapbzrib Image Exam (11/30/2023 12:05 AM CDT) Only [...] System IMG NON RAD IMAGI NG PROCEDURES [facility] NA * Intravitreal Injection, Pharmacologic Agent - [...] Site: Left Eye ??[facility]: 32091-129-83 Balanced salt solution irrigation to injected eye [...] motion or count fingers. Avastin, LEFT eye. [facility] 15355-232-54 LOT [id number] EXP 01/06/2024 First injection in [place]. ??Poor visual potential. ??Neovascular glaucoma and high intraocular pressure. ??Would consider cyclophotocoagulation as patient is having daily headaches likely related to uncontrolled intraocular pressure on maximal medical treatment. ?? No injection complications. Nicholas Carlos MD Suri Izquierdo M.D. [facility] P ROCEDURES * Intravitreal Injection, Pharmacologic Agent [...] Site: Left Eye ??[facility]: 25048-909-05 Balanced salt solution irrigation to injected eye [...] and return schedule given if requested. MEHRDAD [id number] Exp 01/06/24 Shelia Moody M.D. [facility] PRO CEDURES * B-Scan Ultrasound - OS - Left Eye (10/19/2023 3:27 PM CDT) Narrative OPHTHALMOLGY NON-IMAGING ORDERS - 10/19/2023 8:17 PM CDT Quality was good. Notes 10/19/2023 B-scan Left Eye: Moderate to dense vitreous opacities layered inferiorly and possible traction near 430PE. Retina appears grossly attached, no mass noted. Suri Izquierdo M.D. OPHTH ULTRASOU [place] Performing Organization Address [facility] Co de Phone Number OPHTHALMOLGY NON-IMAGING ORDERS * Creatinine with Estimated [...] M.D. LAB BLOOD ADD-ON Performing Organization Address [facility] Co de Phone Number [facility] [address] [place] [address], [facility] DTL [facility] [address] [place] [address] * (ABNORMAL) Electrolyte Panel with Creatinine Dimple (10/26/2011 4:13 AM CDT) BUN (Blood Urea Nitrogen), S 8 8 - 24 MG/DL [facility] Sodium, P 135 135 - 145 MMOL/L [facility] HX Bicarbonate, P/S 32(H) 22 - 29 MMOL/L [facility] Potassium, P 4.5 3.6 - 5.2 MMOL/L [facility] Chloride, S 98(L) 100 - 108 MMOL/L [facility] Creatinine, Dimple 0.8(L) 0.9 - 1.4 MG/DL [facility] Glucose, S 117 70 - 140 MG/DL [facility] 10/26/2011 4:13 AM CDT 10/26/2011 4:13 AM CDT Allison Redmond P.A.-C., P.A. LAB BLOOD A DD-ON [facility] [address] [place] [address], [facility] from Last 3 Months or Most Recently Relevant to Health Maintenance
--- OUTSIDE RECORDS SUMMARY | 2024-01-17 10:06 | XMS_ITS | Encounter Summary ---
Author Organization [facility] Address [address] [place] [address] Care Team Providers Care Director [employer] Name Role Phone Unavailable Primary Care Provider Unavailabl e Reason for Visit * Reason Comments Med Refill Encounter Details Date Type Department Care Team ([facility] st Contact Info) Description 01/16/2024 Refill Department of Ophthalmology in [place], [place] [address] [place] [address] Suri Izquierdo M.D. [address] [place] [address] Med Refill Social History Tobacco Use Types Packs/Day Years Used Date Smoking Tobacco: Every Day Cigarettes Smokeless Tobacco: Never [facility] Utilities [...] your living situation today? I have a [facility] place to live 07/25/2023 Sex [...] AM CDT Appointment Outpatient Procedure Center in [address] [phone] Suri Izquierdo M.D. [address] [place] [address] 02/26/2024 1:00 PM [employer]ER Ancillary Procedure Department of Ophthalmology in [place], [place] [address] [place] [address] Suri Izquierdo M.D. [address] [place] [address] 02/26/2024 1:30 PM [employer]ER Ancillary Procedure Department of Ophthalmology in [place], [place] [address] [place] [address] 02/26/2024 2:00 PM [employer]ER Ancillary Procedure Department of Ophthalmology in [place], [place] [address] [place] [address] Suri Izquierdo M.D. [address] [place] [address] 02/26/2024 2:15 PM [employer]ER Ancillary Procedure Department of Ophthalmology in [place], [place] [address] [place] [address] Suri Izquierdo M.D. [address] [place] [address] documented as of this encounter Visit Diagnoses Not on filedocumented in this encounter
--- OUTSIDE RECORDS SUMMARY | 2024-01-17 10:06 | XMS_ITS | Encounter Summary ---
Author Organization [facility] Address [address] [place] [address] Care Team Providers Care Soldering Machine Setter Name Role Phone Unavailable Primary Care Provider Unavailabl e Reason for Visit * Reason Comments Retina Follow Up * Outpatient (Routine) - Closed Specialty Diagnoses / Procedures Referred By Janeth phillips Referred To Contact Ophthalmology Wero Gasca M.D. [address] [place] [phone] Doc Ferris M.D. [address] [place] [phone] Referral ID Status Reason Start Date Expiration Date Visits Re quested Visits Authorized [id number] Closed 12/13/2023 06/13/2025 1 1 Encounter Details Date Type Department Care Team (Latest Contact Info) Description 01/11/2024 9:45 AM CDT Office Visit Department of Ophthalmology in [place], [place] [address] [place] [phone] Doc Ferris M.D. 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 The patient has serious medical conditions that make surgery risky as well. # Neovascular glaucoma, left eye Intraocular pressure is normal today # Ocular ischemic syndrome, left eye # Glaucoma suspect, right eye # Left ICA occlusion Seen by Sumit Keen on Eliquadonis IMPRESSION 01/11/24 Now s/p PRP LEFT eye and retinal detachment barricade. Laser indirect ophthalmoscopy was done today to [...] up in [address] Ferris. PLAN 01/11/24 Retinal Injection Plan created on 10/23/2023 Left Eye: Avastin Left eye for Other: neovascular glaucoma in the next 2 weeks in [place] Follow-up for 1 more injections of Avastin in 8 weeks. Followup: 8-weeks after last injection-- no testing Injection Location: [place] Hold injection slot in [place]? Left eye documented in this encounter Plan of Treatment Upcoming Encounters Date Type Department Care Team (Latest Contact Info) Description 01/24/2024 8:20 AM CDT Appointment Outpatient Procedure Center in [address] [address] Suri Izquierdo M.D. [address] [place] [address] 02/26/2024 1:00 PM EGG WORKER Ancillary Procedure Department of Ophthalmology in [place], [place] [address] [place] [address] Suri Izquierdo M.D. [address] [place] [address] 02/26/2024 1:30 PM EGG WORKER Ancillary Procedure Department of Ophthalmology in [place], [place] [address] [place] [address] 02/26/2024 2:00 PM EGG WORKER Ancillary Procedure Department of Ophthalmology in [place], [place] [address] [place] [address] Suri Izquierdo M.D. [address] [place] [phone] 02/26/2024 2:15 PM EGG WORKER Ancillary Procedure Department of Ophthalmology in [place], [place] [address] [place] [address] Suri Izquierdo M.D. [address] [place] [address] documented as of this encounter Visit Diagnoses Diagnosis Retinal Detachment With Single Break Left Eye- Primary Glaucoma Neovascular documented in this encounter
--- OUTSIDE RECORDS SUMMARY | 2024-01-17 10:06 | XMS_ITS | Referral Summary ---
Author Organization [facility] Address [address] [place] [address] Care Team Providers Care Vice President Of Customer Service Name Role Phone Unavailable Primary Care Provider Unavailabl e Source Comments Patient records contain information from all sites at [facility]. For routine questions regarding patient records, call [phone] during business hours, M-F 8:00 AM - 5:00 PM Central Time. Record requests for emergency care only can be directed to [phone] at any time.[facility] Encounters Date Type Department Care Team Description 01/16/2024 Refill Department of Ophthalmology in [place], [place] [address] [place] [address] Suri Izquierdo M.D. 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 12/27/2023 1:01 PM CDT - 12/27/2023 11:59 PM CDT Hospital Encounter Outpatient Procedure Center in [address] [phone] Suri Izquierdo M.D. Glaucoma Neovascular Discharge Disposition: Home or Self Care 12/19/2023 10:00 AM CDT Comprehensive Visit Department of Neurology in [address] [address] Jojo Barrientos M.D. Occlusion Carotid Artery Left; Ischemia Retina; Glaucoma Neovascular; Neuropathy Optic Ischemic Bilateral 2023 12:15 PM CDT Clinical Communication Virtual Review in [address] [address] Pre-visit Intake 12/13/2023 10:00 AM CDT Procedure visit Department of Ophthalmology in [address] [address] Wero Gasca M.D. Retinal Detachment With Single Break Left Eye; Glaucoma Neovascular 12/07/2023 Clinical Communication Department of Ophthalmology in [address] [address] Suri Izquierdo M.D. 12/07/2023 Clinical Communication Department of Ophthalmology in [address] [address] Carl Petty 12/07/2023 Documentation Department of Ophthalmology in [address] [address] Suri Izquierdo M.D. 11/30/2023 12:05 AM CDT Ancillary Procedure Department of Ophthalmology 11/30/2023 Ancillary Procedure Department of Ophthalmology 11/30/2023 1:30 PM CDT Office Visit Department of Ophthalmology in [address] [address] Suri Izquierdo M.D. Hemorrhage Vitreous Left (HCC) (Primary Dx); Retinal Detachment With Single Break Left Eye 11/30/2023 1:00 PM CDT Ancillary Procedure Department of Ophthalmology in [place], [place] [address] [place] [phone] Suri Izquierdo M.D. Hemorrhage Vitreous Left (HCC) 11/22/2023 9:02 AM CDT - 11/22/2023 11:59 PM CDT Hospital Encounter Outpatient Procedure Center in [address] [address] Suri Izquierdo M.D. Glaucoma Neovascular Discharge Disposition: Home or Self Care 11/09/2023 12:00 PM CDT Office Visit Department of Ophthalmology in [place], [place] [address] [place] [address] Suri Izquierdo M.D. Hemorrhage Vitreous Left (HCC) (Primary Dx); Glaucoma Neovascular; Occlusion Carotid Artery Left 11/02/2023 12:45 PM CDT Office Visit Department of Ophthalmology in [place], [place] [address] [place] [phone] Suri Izquierdo M.D. Hemorrhage Vitreous Left (HCC) (Primary Dx); Ischemia Retina; Occlusion Carotid Artery Left 10/23/2023 2:54 PM CDT - 10/23/2023 11:59 PM CDT Hospital Encounter Outpatient Procedure Center in [place], [place] [address] [place] [phone] Shelia Laughlin M.D. Discharge Disposition: Home or Self Care 10/23/2023 Orders Only Department of Ophthalmology in [place], [place] [address] [place] [phone] Anabel Lang C.O.A. Glaucoma Neovascular (Primary Dx) 10/23/2023 2:20 PM CDT Ancillary Procedure Department of Ophthalmology in [place], [place] [address] [place] [address] 10/23/2023 1:51 PM CDT - 10/23/2023 2:53 PM CDT Hospital Encounter Outpatient Procedure Center in [place], [place] [address] [place] [phone] Suri Izquierdo M.D. Glaucoma Neovascular Discharge Disposition: Home or Self Care 10/23/2023 12:30 PM CDT Office Visit Department of Ophthalmology in [place], [place] [address] [place] [address] Suri Izquierdo M.D. Occlusion Carotid Artery Left (Primary Dx); Ischemia Retina; Glaucoma Neovascular; Neuropathy Optic Ischemic Bilateral 10/19/2023 Orders Only Department of Ophthalmology in [place], [place] [address] [place] [address] Juan David Cabrales M.D. Glaucoma Neovascular (Primary Dx); Hemorrhage Vitreous Left (HCC) 10/19/2023 Clinical Communication Department of Ophthalmology in [place], [place] [address] [place] [address] Suri Izquierdo M.D. 10/19/2023 Ancillary Procedure Department of Ophthalmology 10/19/2023 2:00 PM CDT Ancillary Procedure Department of Ophthalmology in [place], [place] [address] [place] [address] Suri Izqueirdo M.D. Glaucoma Neovascular; Hemorrhage Vitreous Left (HCC) 10/19/2023 10:30 AM CDT Comprehensive Visit Department of Ophthalmology in [place], [place] [address] [place] [address] Suri Izquierdo M.D. Glaucoma Neovascular (Primary Dx); Hemorrhage Vitreous Left (HCC) 10/18/2023 Clinical Communication Department of Ophthalmology in [place], [place] [address] [place] [address] Provider, Unknown from Last 3 Months Allergies Active Allergy [...] Tobacco: Every Day Cigarettes Smokeless Tobacco: Never [facility] Utilities Answer Date [...] AM CDT Appointment Outpatient Procedure Center in [address] [address] Suri Izquierdo M.D. [address] [place] [phone] 02/26/2024 1:00 PM MUSIC SOUND LIGHT TECHNICIAN Ancillary Procedure Department of Ophthalmology in [place], [place] [address] [place] [phone] Suri Izquierdo M.D. [address] [place] [phone] 02/26/2024 1:30 PM MUSIC SOUND LIGHT TECHNICIAN Ancillary Procedure Department of Ophthalmology in [place], [place] [address] [place] [phone] 02/26/2024 2:00 PM MUSIC SOUND LIGHT TECHNICIAN Ancillary Procedure Department of Ophthalmology in [place], [place] [address] [place] [phone] Suri Izquierdo M.D. [address] [place] [phone] 02/26/2024 2:15 PM MUSIC SOUND LIGHT TECHNICIAN Ancillary Procedure Department of Ophthalmology in [place], [place] [address] [place] [phone] Suri Izquierdo M.D. [address] [place] [phone] Medical Devices Implanted Type Area Head Of Biology Device Identifier Shelf Expiration Date Model / Serial / Lot J J Sig Patella Oval 41 - Briones [id number] Implanted:Qty: 1 on 10/23/2011 Knee Implant Other/Legacy - See Implant Description [employer] Description:Device Manufactu rer - [employer]. Body Location - Other. Left. Device Status Text - [id number] [id number]. Depuy-Insert Stabilized Sz 5 12.5mm - Briones [id number] Implanted:Qty: 1 on 10/23/2011 Knee Implant Other/Legacy - See Implant Description [employer] Description:Device Manufactu rer - [employer]. Body Location - Other. Left. Device Status Text - [id number] [id number]. Depuy-Tib Tray Mod Cement Cocr Sz5 - Briones [id number] Implanted:Qty: 1 on 10/23/2011 Knee Implant Other/Legacy - See Implant Description [employer] Description:Device Manufactu rer - [employer]. Body Location - Other. Left. Device Status Text - [id number] [id number]. Sigma Post Stab.W Lug Fem Sz 6 Lt - Briones [id number] Implanted:Qty: 1 on 10/23/2011 Knee Implant Other/Legacy - See Implant Description [employer] Description:Device Manufactu rer - [employer]. Body Location - Other. Left. Device Status Text - [id number] [id number]. Cement Bone Large - Briones [id number] Implanted:Qty: 2 on 10/23/2011 Misc Other [place] Description:Device Manufactu rer - [employer].. Device Status Text - [id number]-[id number]. Procedures [...] or count fingers. Avastin, LEFT eye. [facility] 49585-876-74 LOT [id number] EXP 01/19/2024 [place] pain with injection after multiple numbing drops and Q-tips. Would recommend subconj lido/epi No complications. Nicholas Carlos MD Suri Izquierdo M.D. [facility] P ROCEDURES * Anderson Retinal Photocoagulation - [...] post procedure care education. Wero Hall M.D. [facility] ROCSHIRLEY [facility] * B-Scan Ultrasound - OS - Left Eye (11/30/2023 2:12 PM CDT) Narrative [facility] - 12/03/2023 3:25 PM CDT 11/30/2023 B-scan Left Eye: Moderate to dense vitreous opacities mostly inferiorly, likely retinal detachment nasally from approximately 130E - 430E with possible break visualized on L430. Retina appears otherwise attached, no mass noted. Suri Izquierdo M.D. [facility] NON-IMAGING ORDERS * Eyes US-Eye [id number]-[id number] Image Exam (11/30/2023 12:05 AM CDT) Only [...] RAD IMAGI NG PROCEDURES Performing Organization Address [facility] Co de Phone Number [facility] * Intravitreal Injection, Pharmacologic Agent - [...] mg/mL ??Route: intravitreal, Site: Left Eye ??[facility]: 16850-117-09 Balanced salt solution irrigation to injected eye [...] or count fingers. Avastin, LEFT eye. [facility] 94143-791-46 LOT [id number] EXP 01/06/2024 First injection in [place]. ??Poor [...] mg/mL ??Route: intravitreal, Site: Left Eye ??[facility]: 72901-301-52 Balanced salt solution irrigation to injected eye [...] and return schedule given if requested. MEHRDAD [id number] Exp 01/06/24 Shelia Moody M.D. [facility] PRO CEDURES * B-Scan Ultrasound - OS - Left Eye (10/19/2023 3:27 PM CDT) Narrative [facility] - 10/19/2023 8:17 PM CDT Quality was good. Notes 10/19/2023 B-scan Left Eye: Moderate to dense vitreous opacities layered inferiorly and possible traction near 430PE. Retina appears grossly attached, no mass noted. Suri Izquierdo M.D. [facility] ULTRASOU [place] Performing Organization Address City/[facility]/ZIP Co de Phone Number [facility] * Creatinine with Estimated GFR (07/30/2023 8:13 AM CDT) Creatinine 1.15 0.74 - 1.35 mg/dL 07/30/2023 9:14 AM CDT DTL Estimated GFR (eGFR) 66 >=60 mL/min/BSA 07/30/2023 9:14 AM CDT DTL Comment: Estimated GFR calculated using the 2020 CKD_EPI creatinine equation. Blood (Blood, Venous) 07/30/2023 8:13 AM CDT 07/30/2023 8:52 AM CDT Red Gallego M.D. LAB BLOOD ADD-ON [facility] [address] [place] [address], [place] DTL [facility] [address] [place] [address] * (ABNORMAL) Electrolyte Panel with Creatinine Dimple (10/26/2011 4:13 AM CDT) BUN (Blood Urea Nitrogen), S 8 8 - 24 MG/DL [facility] Sodium, P 135 135 - 145 MMOL/L [facility] HX Bicarbonate, P/S 32(H) 22 - 29 MMOL/L [facility] Potassium, P 4.5 3.6 - 5.2 MMOL/L [facility] Chloride, S 98(L) 100 - 108 MMOL/L [facility] Creatinine, Dimple 0.8(L) 0.9 - 1.4 MG/DL [facility] Glucose, S 117 70 - 140 MG/DL [facility] 10/26/2011 4:13 AM CDT 10/26/2011 4:13 AM CDT Allison Redmond P.A.-C., P.A. LAB BLOOD A DD-ON [facility] [address] [place] [address], [facility] from Last 3 Months or Most Recently Relevant to Health Maintenance
--- OUTSIDE RECORDS SUMMARY | 2024-01-17 10:06 | XMS_ITS | Encounter Summary ---
Author Organization [facility] Address [address] [place] [address] Care Team Providers Care Supply Coordinator Name Role Phone Unavailable Primary Care Provider Unavailabl e Reason for Referral * Outpatient (Routine) - Authorized Specialty Diagnoses / Procedures Referred By Janeth phillips Referred To Contact Ophthalmology Doc Ferris M.D. [address] [place] [address] [facility] Referral ID Status Reason Start Date Expiration Date V isits Requested Visits Authorized [id number] Authorized 01/11/2024 07/12/2025 1 1 Scheduling Instructions Retinal Injection Plan created on 10/23/2023 Left Eye: Avastin Left eye for Other: neovascular glaucoma in the next 2 weeks in [place] Follow-up for 1 more injections of Avastin in 8 weeks. Followup: 8-weeks after last injection-- no testing Injection Location: [place] Hold injection slot in [place]? 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 [address] [place] [address] [facility] Referral ID Status Reason Start Date Expiration Date V isits Requested Visits Authorized [id number] Authorized 01/11/2024 01/10/2025 2 2 * Outpatient (Routine) - Authorized Specialty Diagnoses / Procedures Referred By Janeth t Referred To Contact Diagnoses Retinal Detachment With Single Break Left Eye Procedures OPH Tech-Only Pre-Injection Appointment Doc Ferris M.D. 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 I have a [facility] place to live 07/25/2023 Sex and [...] CDT Appointment Outpatient Procedure Center in [address] [phone] Suri Izquierdo M.D. [address] [place] [address] 02/26/2024 1:00 PM MD PSYCHIATRY Ancillary Procedure Department of Ophthalmology in [place], [place] [address] [place] [address] Suri Izquierdo M.D. [address] [place] [address] 02/26/2024 1:30 PM MD PSYCHIATRY Ancillary Procedure Department of Ophthalmology in [place], [place] [address] [place] [address] 02/26/2024 2:00 PM MD PSYCHIATRY Ancillary Procedure Department of Ophthalmology in [place], [place] [address] [place] [address] Suri Izquierdo M.D. [address] [place] [address] 02/26/2024 2:15 PM MD PSYCHIATRY Ancillary Procedure Department of Ophthalmology in [place], [place] [address] [place] [address] Suri Izquierdo M.D. [address] [place] [address] Scheduled Orders Name Type Priority Associated Diagnoses Orde r Schedule OPH Tech-Only Pre-Injection Appointment Ophthalmology Routine Retinal Detachment With Single Break Left Eye 8 weeks for 1 Occurrences starting 01/11/2024 until 04/12/2025 Intravitreal Injection Gonda Appt Order - OS - Left Eye Ophthalmology Routine Retinal Detachment With Single Break Left Eye 8 weeks for 2 Occurrences starting 01/11/2024 until 04/12/2025 Optical Coherence Tomography (OCT) - Macula/Retina - OU - Both Eyes Ophthalmology Routine Retinal Detachment With Single Break Left Eye 1 Occurrences starting 01/11/2024 until 04/12/2025 Scheduled Referrals Name Type Priority Associated Diagnoses Order Schedule Ophthalmology office visit (clinic) Outpatient Referral Routine 1 Occurrences starting 01/11/2024 until 04/12/2025 documented as of this encounter Visit Diagnoses Diagnosis Retinal Detachment With Single Break Left Eye- Primary documented in this encounter
--- OUTSIDE RECORDS SUMMARY | 2024-01-17 10:07 | XMS_ITS | Encounter Summary ---
Author Organization [facility] Address [address] [place] [address] Care Team Providers Care Equal Opportunity Officer Name Role Phone Unavailable Primary Care Provider Unavailabl e Reason for Referral * Outpatient (Routine) - Closed Specialty Diagnoses / Procedures Referred By Janeth phillips Referred To Contact Ophthalmology Suri Izquierdo M.D. [address] [place] [phone] [facility] Referral ID Status Reason Start Date Expiration Date Visits Re quested Visits Authorized [id number] Closed 11/09/2023 05/10/2025 1 1 Reason for Visit * Outpatient (Routine) - Closed Specialty Diagnoses / Procedures Referred By Janeth phillips Referred To Contact Ophthalmology Suri Izquierdo M.D. [address] [place] [phone] [facility] Referral ID Status Reason Start Date Expiration Date Visits Re quested Visits Authorized [id number] Closed 11/02/2023 05/03/2025 1 1 Encounter Details Date Type Department Care Team (Latest Contact Info) Description 11/09/2023 12:00 PM CDT Office Visit Department of Ophthalmology in [place], [place] [address] [place] [phone] Suri Izquierdo M.D. [address] [place] [phone] Hemorrhage Vitreous Left (HCC) (Primary Dx); Glaucoma [...] He is scheduled with neurology here at [place] in December and is seeing his food service sales representatives early next week. PLAN: - Continue Avastin [...] last injection with OCT macula. Injection Location: [place] Hold injection slot in [place]? Left eye Injection plan staffed with Dr. Herrera on 10/19/23 Patient discussed and seen with Dr. Benton today, 11/09/23. Suri Izquierdo M.D. PGY-2 Ophthalmology Resident documented in this encounter Plan of Treatment Upcoming Encounters Date Type Department Care Team (Latest Contact Info) Description 01/24/2024 8:20 AM CDT Appointment Outpatient Procedure Center in [address] [phone] Suri Izquierdo M.D. [address] [place] [phone] 02/26/2024 1:00 PM EXCHANGE CONSULTANT Ancillary Procedure Department of Ophthalmology in [place], [place] [address] [place] [address] Suri Izquierdo M.D. [address] [place] [phone] 02/26/2024 1:30 PM EXCHANGE CONSULTANT Ancillary Procedure Department of Ophthalmology in [place], [place] [address] [place] [address] 02/26/2024 2:00 PM EXCHANGE CONSULTANT Ancillary Procedure Department of Ophthalmology in [place], [place] [address] [place] [phone] Suri Izquierdo M.D. [address] [place] [phone] 02/26/2024 2:15 PM EXCHANGE CONSULTANT Ancillary Procedure Department of Ophthalmology in [place], [place] [address] [place] [address] Suri Izquierdo M.D. [address] [place] [address] Scheduled Orders Name Type Priority Associated Diagnoses [...]
--- OUTSIDE RECORDS SUMMARY | 2024-01-17 10:07 | XMS_ITS | Encounter Summary ---
Author Organization [facility] Address [address] [place] [address] Care Team Providers Care Safety And Health Consultant Name Role Phone Unavailable Primary Care Provider Unavailabl e Encounter Details Date Type Department Care Team (Late st Contact Info) Description 10/23/2023 Orders Only Department of Ophthalmology in [place], [place] [address] [place] [phone] Anabel Lang, C.O.A. [address] [place] [address] Glaucoma Neovascular (Primary Dx) Social History Tobacco [...] AM CDT Appointment Outpatient Procedure Center in [address] [address] Suri Izquierdo M.D. 200 [place] [address] 02/26/2024 1:00 PM ADJUNCT ART HISTORY INSTRUCTOR Ancillary Procedure Department of Ophthalmology in [place], [place] [address] [place] [address] Suri Izquierdo M.D. [address] [place] [phone] 02/26/2024 1:30 PM ADJUNCT ART HISTORY INSTRUCTOR Ancillary Procedure Department of Ophthalmology in [place], [place] [address] [place] [address] 02/26/2024 2:00 PM ADJUNCT ART HISTORY INSTRUCTOR Ancillary Procedure Department of Ophthalmology in [place], [place] [address] [place] [address] Suri Izquierdo M.D. [address] [place] [address] [place] [address] 02/26/2024 2:15 PM ADJUNCT ART HISTORY INSTRUCTOR Ancillary Procedure Department of Ophthalmology in [place], [place] [address] [place] [phone] Suri Izquierdo M.D. [address] [place] [phone] documented as of this encounter Visit Diagnoses Diagnosis Glaucoma Neovascular- Primary documented in this encounter
--- OUTSIDE RECORDS SUMMARY | 2024-01-17 10:07 | XMS_ITS | Encounter Summary ---
Author Organization [facility] Address [address] [place] [address] Care Team Providers Care Satellite Installer Name Role Phone Unavailable Primary Care Provider Unavailabl e Reason for Referral * Outpatient (Routine) - Authorized Specialty Diagnoses / Procedures Referred By Janeth phillips Referred To Contact Diagnoses Glaucoma Neovascular Procedures Intravitreal Injection, Pharmacologic Agent - OS - Left Eye Suri Izquierdo M.D. [address] [place] [address] [facility] Region Referral ID Status Reason Start Date Expiration Date V isits Requested Visits Authorized [id number] Authorized 10/19/2023 10/18/2024 5 5 Reason for Visit * Outpatient (Routine) - Authorized Specialty Diagnoses / Procedures Referred By Janeth phillips Referred To Contact Diagnoses Glaucoma Neovascular Procedures Intravitreal Injection, Pharmacologic Agent - OS - Left Eye Suri Izquierdo M.D. [address] [place] [address] [facility] Region Referral ID Status Reason Start Date Expiration Date V isits Requested Visits Authorized [id number] Authorized 10/19/2023 10/18/2024 5 5 Encounter Details Date Type Department Care Team (Latest Contact Info) Description 12/27/2023 1:01 PM CDT - 12/27/2023 11:59 PM CDT Hospital Encounter Outpatient Procedure Center in [place] [address] [place] [address] Suri Izquierdo M.D. [address] [place] [address] Glaucoma Neovascular Discharge Disposition: Home or Self Care Social History Tobacco Use Types Packs/Day Years Used Date Smoking Tobacco: Every Day Cigarettes Smokeless Tobacco: Never [facility] Utilities Answer Date Recorded In the past 12 months has th e Marvin, gas, oil, or water [employer] threatened to shut off services in your [...] times a day. 2 mL 12 10/19/2023 dilTIAZem (Dilacor XR) 180 mg ER [...] 100-62.5-25 mcg inhaler 1 puff daily. brimonidine (Alphagan) 0.2 % ophthalmic solution Administer 1 drop into the left eye 3 (three) times a day. 5 mL 3 10/19/2023 01/17/2024 documented as of this encounter Plan of Treatment Upcoming Encounters Date Type Department Care Team (Latest Contact Info) Description 01/24/2024 8:20 AM CDT Appointment Outpatient Procedure Center in [address] [phone] Suri Izquierdo M.D. [address] [place] [phone] 02/26/2024 1:00 PM CORN HUSK BALER Ancillary Procedure Department of Ophthalmology in [place], [place] [address] [place] [address] Suri Izquierdo M.D. [address] [place] [phone] 02/26/2024 1:30 PM CORN HUSK BALER Ancillary Procedure Department of Ophthalmology in [place], [place] [address] [place] [phone] 02/26/2024 2:00 PM CORN HUSK BALER Ancillary Procedure Department of Ophthalmology in [place], [place] [address] [place] [address] Suri Izquierdo M.D. [address] [place] [phone] 02/26/2024 2:15 PM CORN HUSK BALER Ancillary Procedure Department of Ophthalmology in [place], [place] [address] [place] [phone] Suri Izquierdo M.D. [address] [place] [phone] documented as of this encounter Procedures Procedure [...] motion or count fingers. Avastin, LEFT eye. [facility] 12902-114-43 LOT [id number] EXP 01/19/2024 [place] pain with injection after multiple numbing drops [...] One-Time Injection, Starting on Yun 12/27/23 at 1322, For 1 dose Given 12/27/2023 1:22 PM CDT 1.25 mg Left Eye documented in this encounter
--- OUTSIDE RECORDS SUMMARY | 2024-01-17 10:07 | XMS_ITS | Encounter Summary ---
Author Organization [facility] Address [address] [place] [address] Care Team Providers Care Press Operator Printing Name Role Phone Unavailable Primary Care Provider Unavailabl e Encounter Details Date Type Department Care Team (Latest Contact Info) Description 12/07/2023 Clinical Communication Department of Ophthalmology in [place], [place] [address] [place] [address] Suri Izquierdo M.D. [address] [place] [address] Social History Tobacco Use Types Packs/Day Years Used Date Smoking Tobacco: Unknown [facility] Utilities Answer Date Recorded In the past [...] living situation today? I have a [facility] place to live 07/25/2023 Sex and Gender Information Value Date Recorded Sex Assigned at Male 07/25/2023 8:23 PM CDT Gender Identity Male 07/25/2023 8:23 PM CDT Sexual Orientation Straight 07/25/2023 8: 23 PM CDT documented as of this encounter Plan of Treatment Upcoming Encounters Date Type Department Care Team (Latest Contact Info) Description 01/24/2024 8:20 AM CDT Appointment Outpatient Procedure Center in [address] [address] Suri Izquierdo M.D. [address] [place] [address] 02/26/2024 1:00 PM ANESTHESIOLOGY TEACHER Ancillary Procedure Department of Ophthalmology in [place], [place] [address] [place] [address] Suri Izquierdo M.D. [address] [place] [address] 02/26/2024 1:30 PM ANESTHESIOLOGY TEACHER Ancillary Procedure Department of Ophthalmology in [place], [place] [address] [place] [address] 02/26/2024 2:00 PM ANESTHESIOLOGY TEACHER Ancillary Procedure Department of Ophthalmology in [place], [place] [address] [place] [address] Suri Izquierdo M.D. [address] [place] [address] 02/26/2024 2:15 PM ANESTHESIOLOGY TEACHER Ancillary Procedure Department of Ophthalmology in [place], [place] [address] [place] [address] Suri Izquierdo M.D. [address] [place] [phone] documented as of this encounter Visit Diagnoses Not on filedocumented in this encounter
--- OUTSIDE RECORDS SUMMARY | 2024-01-17 10:07 | XMS_ITS | Encounter Summary ---
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 [address] [place] [address] [facility] Referral ID Status Reason Start Date Expiration Date Visits Re quested Visits Authorized [id number] Closed 10/23/2023 04/23/2025 1 1 Encounter Details Date Type Department Care Team (Latest Contact Info) Description 12/19/2023 10:00 AM CDT Comprehensive Visit Department of Neurology in [place], [place] [address] [place] [phone] Jojo Barrientos M.D. [address] [place] [phone] Occlusion Carotid Artery Left; Ischemia Retina; Glaucoma Neovascular; Neuropathy Optic Ischemic Bilateral Social History Tobacco Use Types Packs/Day Years Used Date Smoking Tobacco: Every Day Cigarettes Smokeless Tobacco: Never [facility] Utilities Answer Date [...] CDT Appointment Outpatient Procedure Center in [address] [address] Suri Izquierdo M.D. [address] [place] [address] 02/26/2024 1:00 PM HEALTH PROGRAM MANAGER Ancillary Procedure Department of Ophthalmology in [place], [place] [address] [place] [address] Suri Izquierdo M.D. [address] [place] [phone] 02/26/2024 1:30 PM HEALTH PROGRAM MANAGER Ancillary Procedure Department of Ophthalmology in [place], [place] [address] [place] [address] 02/26/2024 2:00 PM HEALTH PROGRAM MANAGER Ancillary Procedure Department of Ophthalmology in [place], [place] [address] [place] [address] Suri Izquierdo M.D. [address] [place] [address] 02/26/2024 2:15 PM HEALTH PROGRAM MANAGER Ancillary Procedure Department of Ophthalmology in [place], [place] [address] [place] [address] Suri Izquierdo M.D. 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
--- OUTSIDE RECORDS SUMMARY | 2024-01-17 10:07 | XMS_ITS | Encounter Summary ---
Author Organization [facility] Address [address] [place] [address] Care Team Providers Care Mri Ct Tech Name Role Phone Unavailable Primary Care Provider Unavailabl e Reason for Referral * Outpatient (Routine) - Authorized Specialty Diagnoses / Procedures Referred By Janeth phillips Referred To Contact Diagnoses Glaucoma Neovascular Procedures Intravitreal Injection, Pharmacologic Agent - OS - Left Eye Suri Izquierdo M.D. 200 [place] [address] [facility] Region Referral ID Status Reason Start Date Expiration Date V isits Requested Visits Authorized [id number] Authorized 10/19/2023 10/18/2024 5 5 Reason for Visit * Outpatient (Routine) - Authorized Specialty Diagnoses / Procedures Referred By Janeth phillips Referred To Contact Diagnoses Glaucoma Neovascular Procedures Intravitreal Injection, Pharmacologic Agent - OS - Left Eye Suri Izquierdo M.D. [address] [place] [address] [facility] Region Referral ID Status Reason Start Date Expiration Date V isits Requested Visits Authorized [id number] Authorized 10/19/2023 10/18/2024 5 5 Encounter Details Date Type Department Care Team (Latest Contact Info) Description 11/22/2023 9:02 AM CDT - 11/22/2023 11:59 PM CDT Hospital Encounter Outpatient Procedure Center in [place] [address] [place] [address] Suri Izquierdo M.D. [address] [place] [address] Glaucoma Neovascular Discharge Disposition: Home or Self [...] CDT Appointment Outpatient Procedure Center in [address] [address] Suri Izquierdo M.D. [address] [place] [address] 02/26/2024 1:00 PM FARMER AND GRAZIER Ancillary Procedure Department of Ophthalmology in [place], [place] [address] [place] [phone] Suri Izquierdo M.D. [address] [place] [address] 02/26/2024 1:30 PM FARMER AND GRAZIER Ancillary Procedure Department of Ophthalmology in [place], [place] [address] [place] [address] 02/26/2024 2:00 PM FARMER AND GRAZIER Ancillary Procedure Department of Ophthalmology in [place], [place] [address] [place] [address] Suri Izquierdo M.D. [address] [place] [address] 02/26/2024 2:15 PM FARMER AND GRAZIER Ancillary Procedure Department of Ophthalmology in [place], [place] [address] [place] [address] Suri Izquierdo M.D. [address] [place] [phone] documented as of this encounter Procedures Procedure [...] Site: Left Eye ??[facility]: 03296-216-81 Balanced salt solution irrigation to injected eye [...] motion or count fingers. Avastin, LEFT eye. [facility] 01642-126-19 LOT [id number] EXP 01/06/2024 First injection in [place]. ??Poor visual potential. ??Neovascular glaucoma and high intraocular pressure. ??Would consider cyclophotocoagulation as patient is having daily headaches likely related to uncontrolled intraocular pressure on maximal medical treatment. ?? No injection complications. Nicholas Carlos MD Suri Izquierdo M.D. OPH CLINIC P SLYEDURES documented in this encounter Visit Diagnoses Diagnosis [...]
--- OUTSIDE RECORDS SUMMARY | 2024-01-17 10:07 | XMS_ITS | Encounter Summary ---
Author Organization [facility] Address [address] [place] [address] Care Team Providers Care Toll Ticket Clerk Name Role Phone Unavailable Primary Care Provider Unavailabl e Encounter Details Date Type Department Care Team (Latest Contact Info) Description 11/30/2023 1:00 PM CDT Ancillary Procedure Department of Ophthalmology in [place], [place] [address] [place] [address] Suri Izquierdo M.D. [address] [place] [address] Hemorrhage Vitreous Left (HCC) Social History Tobacco Use Types Packs/Day Years Used Date Smoking Tobacco: Unknown [facility] Utilities Answer Date Recorded In the past 12 months has [facility] electric, gas, oil, or water [...] your living situation today? I have a [facility] place to live 07/25/2023 Sex and [...] CDT Appointment Outpatient Procedure Center in [address] [address] Suri Izquierdo M.D. [address] [place] [address] 02/26/2024 1:00 PM BELT WEAVER Ancillary Procedure Department of Ophthalmology in [place], [place] [address] [place] [address] Suri Izquierdo M.D. 200 [place] [address] 02/26/2024 1:30 PM BELT WEAVER Ancillary Procedure Department of Ophthalmology in [place], [place] [address] [place] [address] 02/26/2024 2:00 PM BELT WEAVER Ancillary Procedure Department of Ophthalmology in [place], [place] [address] [place] [address] Suri Izquierdo M.D. [address] [place] [address] 02/26/2024 2:15 PM BELT WEAVER Ancillary Procedure Department of Ophthalmology in [place], [place] [address] [place] [address] Suri Izqueirdo M.D. [address] [place] [address] documented as of this encounter Procedures Procedure [...] JH Suri Izquierdo M.D. OPHTH ULTRASOU ND OPHTHALMOLGY NON-IMAGING ORDERS documented in this encounter Visit Diagnoses Diagnosis Hemorrhage Vitreous Left (HCC) documented in this encounter
--- OUTSIDE RECORDS SUMMARY | 2024-01-17 10:07 | XMS_ITS | Encounter Summary ---
Author Organization [facility] Address [address] [place] [address] Care Team Providers Care Flower Pot Press Operator Name Role Phone Unavailable Primary Care Provider Unavailabl e Reason for Visit * Reason Onset Date Comments Pre-visit Intake 2023 Encounter Details Date Type Department Care Team (Latest Contact Info) Description 2023 12:15 PM CDT Clinical Communication Virtual Review in [place], [place] [address] [place] [address] Pre-visit Intake Social History Tobacco Use Types Packs/Day Years Used Date Smoking Tobacco: Every Day Cigarettes Smokeless Tobacco: Never [facility] Utilities Answer Date Recorded In [...] your living situation today? I have a [facility] place to live 07/25/2023 Sex [...] CDT Appointment Outpatient Procedure Center in [address] [address] Suri Izquierdo M.D. [address] [place] [phone] 02/26/2024 1:00 PM CONTINUOUS DRIER OPERATOR Ancillary Procedure Department of Ophthalmology in [place], [place] 200 [place] [address] Suri Izquierdo M.D. [address] [place] [address] 02/26/2024 1:30 PM CONTINUOUS DRIER OPERATOR Ancillary Procedure Department of Ophthalmology in [place], [place] [address] [place] [address] 02/26/2024 2:00 PM CONTINUOUS DRIER OPERATOR Ancillary Procedure Department of Ophthalmology in [place], [place] [address] [place] [address] Suri Izquierdo M.D. [address] [place] [address] 02/26/2024 2:15 PM CONTINUOUS DRIER OPERATOR Ancillary Procedure Department of Ophthalmology in [place], [place] [address] [place] [address] Suri Izquierdo M.D. [address] [place] [address] documented as of this encounter Visit Diagnoses Not on filedocumented in this encounter
--- OUTSIDE RECORDS SUMMARY | 2024-01-17 10:07 | XMS_ITS | Encounter Summary ---
Author Organization [facility] Address [address] [place] [address] Care Team Providers Care Frozen Pie Maker Name Role Phone Unavailable Primary Care Provider Unavailabl e Encounter Details Date Type Department Care Team (Late st Contact Info) Description 11/30/2023 Ancillary Procedure Department of Ophthalmology Social History Tobacco Use Types Packs/Day Years Used Date Smoking Tobacco: Unknown [facility] Utilities Answer Date Recorded In the past 12 months has th e electric, gas, oil, or water [employer] threatened to shut off services in your [...] AM CDT Appointment Outpatient Procedure Center in [address] [address] Suri Izquierdo M.D. [address] [place] [phone] 02/26/2024 1:00 PM BURGLAR ALARM SUPERINTENDENT Ancillary Procedure Department of Ophthalmology in [place], [place] [address] [place] [address] Suri Izquierdo M.D. [address] [place] [phone] 02/26/2024 1:30 PM BURGLAR ALARM SUPERINTENDENT Ancillary Procedure Department of Ophthalmology in [place], [place] [address] [place] [address] 02/26/2024 2:00 PM BURGLAR ALARM SUPERINTENDENT Ancillary Procedure Department of Ophthalmology in [place], [place] [address] [place] [address] Suri Izquierdo M.D. [address] [place] [address] 02/26/2024 2:15 PM BURGLAR ALARM SUPERINTENDENT Ancillary Procedure Department of Ophthalmology in [place], [place] [address] [place] [address] Suri Izquierdo M.D. [address] [place] [address] documented as of this encounter Procedures Procedure Name Priority Date/Time Associated Diagnosis Comments OPHTHALMOLOGY IMAGE EXAM Routine 11/30/2023 12:00 AM CDT documented in this encounter Results * Video-Eyes US-Eye M-Npav-Cavpofngwmolp Image Exam (11/30/2023 12:00 AM CDT) Narrative [...]
--- OUTSIDE RECORDS SUMMARY | 2024-01-17 10:07 | XMS_ITS | Encounter Summary ---
Author Organization [facility] Address [address] [place] [address] Care Team Providers Care Jump Roll Operator Name Role Phone Unavailable Primary Care Provider Unavailabl e Reason for Referral * Outpatient (Routine) - Closed Specialty Diagnoses / Procedures Referred By Janeth phillips Referred To Contact Procedures Tamayo Retinal Photocoagulation - OS - Left Eye Wero Gasca M.D. 200 [place] [address] [facility] Referral ID Status Reason Start Date Expiration Date Visits Re quested Visits Authorized [id number] Closed 12/13/2023 12/12/2024 1 1 * Outpatient (Routine) - Closed Specialty Diagnoses / Procedures Referred By Janeth phillips Referred To Contact Ophthalmology Wero Gasca M.D. 200 [place] [address] Doc Ferris M.D. 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 [address] [place] [address] [facility] Referral ID Status Reason Start Date Expiration Date Visits Re quested Visits Authorized [id number] Closed 12/07/2023 12/06/2024 1 1 Encounter Details Date Type Department Care Team (Latest Contact Info) Description 12/13/2023 10:00 AM CDT Procedure visit Department of Ophthalmology in [place], [place] [address] [place] [phone] Wero Gasca M.D. 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 Injection Location: [place] Hold injection slot in [place]? Left eye documented in this encounter Plan of Treatment Upcoming Encounters Date Type Department Care Team (Latest Contact Info) Description 01/24/2024 8:20 AM CDT Appointment Outpatient Procedure Center in [address] [address] Suri Izquierdo M.D. [address] [place] [address] 02/26/2024 1:00 PM MATERIAL STRESS TESTER Ancillary Procedure Department of Ophthalmology in [place], [place] [address] [place] [address] Suri Izquierdo M.D. [address] [place] [address] 02/26/2024 1:30 PM MATERIAL STRESS TESTER Ancillary Procedure Department of Ophthalmology in [place], [place] [address] [place] [address] 02/26/2024 2:00 PM MATERIAL STRESS TESTER Ancillary Procedure Department of Ophthalmology in [place], [place] [address] [place] [address] Suri Izquierdo M.D. [address] [place] [address] 02/26/2024 2:15 PM MATERIAL STRESS TESTER Ancillary Procedure Department of Ophthalmology in [place], [place] [address] [place] [address] Suri Izquierdo M.D. [address] [place] [address] Scheduled Referrals Name Type Priority Associated Diagnoses Order Schedule Ophthalmology office visit (clinic) Outpatient Referral Routine Expected: 01/12/2024, Expires: 03/13/2025 documented as of this encounter Procedures Procedure Name Priority Date/Time Associated Diagnosis Comments ATMAYO RETINAL PHOTOCOAGULATION - OS - LEFT EYE [...] education. Wero Hall M.D. 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
--- OUTSIDE RECORDS SUMMARY | 2024-01-17 10:07 | XMS_ITS | Encounter Summary ---
Author Organization [facility] Address [address] [place] [address] Care Team Providers Care Supervisor Spring Up Name Role Phone Unavailable Primary Care Provider Unavailabl e Encounter Details Date Type Department Care Team (Late st Contact Info) Description 10/23/2023 2:20 PM CDT Ancillary Procedure Department of Ophthalmology in [place], [place] [address] [place] [address] Social History Tobacco Use Types Packs/Day Years Used Date Smoking Tobacco: Unknown [facility] Utilities Answer Date Recorded In the past [...] AM CDT Appointment Outpatient Procedure Center in [address] [address] uSri Izquierdo M.D. [address] [place] [address] 02/26/2024 1:00 PM FINANCIAL CONTROLLER Ancillary Procedure Department of Ophthalmology in [place], [place] [address] [place] [address] Suri Izquierdo M.D. [address] [place] [address] 02/26/2024 1:30 PM FINANCIAL CONTROLLER Ancillary Procedure Department of Ophthalmology in [place], [place] [address] [place] [address] 02/26/2024 2:00 PM FINANCIAL CONTROLLER Ancillary Procedure Department of Ophthalmology in [place], [place] [address] [place] [address] Suri Izquierdo M.D. [address] [place] [address] 02/26/2024 2:15 PM FINANCIAL CONTROLLER Ancillary Procedure Department of Ophthalmology in [place], [place] [address] [place] [phone] Suri Izquierdo M.D. [address] [place] [address] documented as of this encounter Visit Diagnoses Not on filedocumented in this encounter
--- OUTSIDE RECORDS SUMMARY | 2024-01-17 10:07 | XMS_ITS | Encounter Summary ---
Author Organization [facility] Address [address] [place] [address] Care Team Providers Care Manager Transportation Name Role Phone Unavailable Primary Care Provider Unavailabl e Encounter Details Date Type Department Care Team (Latest Contact Info) Description 12/07/2023 Clinical Communication Department of Ophthalmology in [place], [place] [address] [place] [address] Carl Petty Social History Tobacco Use Types [...] AM CDT Appointment Outpatient Procedure Center in [address] [address] Suri Izquierdo M.D. 200 [place] [address] 02/26/2024 1:00 PM DRYWALL APPLICATION SUPERVISOR Ancillary Procedure Department of Ophthalmology in [place], [place] [address] [place] [address] Suri Izquierdo M.D. [address] [place] [address] 02/26/2024 1:30 PM DRYWALL APPLICATION SUPERVISOR Ancillary Procedure Department of Ophthalmology in [place], [place] [address] [place] [address] 02/26/2024 2:00 PM DRYWALL APPLICATION SUPERVISOR Ancillary Procedure Department of Ophthalmology in [place], [place] [address] [place] [address] Suri Izquierdo M.D. [address] [place] [address] 02/26/2024 2:15 PM DRYWALL APPLICATION SUPERVISOR Ancillary Procedure Department of Ophthalmology in [place], [place] [address] [place] [address] Suri Izquierdo M.D. [address] [place] [address] documented as of this encounter Visit Diagnoses Not on filedocumented in this encounter
--- OUTSIDE RECORDS SUMMARY | 2024-01-17 10:07 | XMS_ITS | Encounter Summary ---
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 200 [place] [address] [facility] Referral ID Status Reason Start Date Expiration Date Visits Re quested Visits Authorized [id number] Closed 12/07/2023 12/06/2024 1 1 Encounter Details Date Type Department Care Team (Late st Contact Info) Description 12/07/2023 Documentation Department of Ophthalmology in [place], [place] [address] [place] [phone] Suri Izquierdo M.D. [address] [place] [phone] Social History Tobacco Use Types Packs/Day Years Used Date Smoking Tobacco: Unknown [facility] Utilities Answer Date Recorded In the [...] your living situation today? I have a [facility] place to live 07/25/2023 Sex and [...] within the next week. Discussed with front end alignment specialist, who will schedule this. Discussed with Dr. Ferris. documented in this encounter Plan of Treatment Upcoming Encounters Date Type Department Care Team (Latest Contact Info) Description 01/24/2024 8:20 AM CDT Appointment Outpatient Procedure Center in [address] [address] Suri Izquierdo M.D. [address] [place] [phone] 02/26/2024 1:00 PM TOWN JUSTICE Ancillary Procedure Department of Ophthalmology in [place], [place] [address] [place] [address] Suri Izquierdo M.D. [address] [place] [phone] 02/26/2024 1:30 PM TOWN JUSTICE Ancillary Procedure Department of Ophthalmology in [place], [place] [address] [place] [phone] 02/26/2024 2:00 PM TOWN JUSTICE Ancillary Procedure Department of Ophthalmology in [place], [place] [address] [place] [phone] Suri Izquierdo M.D. [address] [place] [phone] 02/26/2024 2:15 PM TOWN JUSTICE Ancillary Procedure Department of Ophthalmology in [place], [place] [address] [place] [phone] Suri Izquierdo M.D. 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
--- OUTSIDE RECORDS SUMMARY | 2024-01-17 10:07 | XMS_ITS | Encounter Summary ---
Author Organization [facility] Address [address] [place] [address] Care Team Providers Care Tailor Fitter Name Role Phone Unavailable Primary Care Provider Unavailabl e Encounter Details Date Type Department Care Team (Latest Contact Info) Description 10/23/2023 2:54 PM CDT - 10/23/2023 11:59 PM CDT Hospital Encounter Outpatient Procedure Center in [place], [place] [address] [place] [address] Shelia Laughlin M.D. [address] [place] [address] Discharge Disposition: Home or Self Care Social History Tobacco Use Types Packs/Day Years Used Date Smoking Tobacco: Unknown [facility] Utilities Answer Date Recorded In the past [address] [facility] electric, gas, oil, or water company threatened [...] times a day. 2 mL 12 10/19/2023 dorzolamide (Trusopt) 2 % ophthalmic solution [...] a day. 5 mL 3 10/19/2023 01/17/2024 latanoprost (XALATAN) 0.005 % ophthalmic solution Administer 1 drop into both eyes at bedtime. 07/07/2023 11/02/2023 documented as of this encounter Plan of Treatment Upcoming Encounters Date Type Department Care Team (Latest Contact Info) Description 01/24/2024 8:20 AM CDT Appointment Outpatient Procedure Center in [address] [phone] Suri Izquierdo M.D. [address] [place] [phone] 02/26/2024 1:00 PM APPLICATION PACKAGING CONSULTANT Ancillary Procedure Department of Ophthalmology in [place], [place] [address] [place] [phone] Suri Izquierdo M.D. [address] [place] [phone] 02/26/2024 1:30 PM APPLICATION PACKAGING CONSULTANT Ancillary Procedure Department of Ophthalmology in [place], [place] [address] [place] [phone] 02/26/2024 2:00 PM APPLICATION PACKAGING CONSULTANT Ancillary Procedure Department of Ophthalmology in [place], [place] [address] [place] [phone] Suri Izquierdo M.D. [address] [place] [phone] 02/26/2024 2:15 PM APPLICATION PACKAGING CONSULTANT Ancillary Procedure Department of Ophthalmology in [place], [place] [address] [place] [phone] Suri Izquierdo M.D. [address] [place] [address] documented as of this encounter Procedures Procedure [...] intravitreal, Site: Left Eye ??[facility]: 57645-505-56 Balanced salt solution irrigation to injected eye [...] and return schedule given if requested. MEHRDAD [id number] Exp 01/06/24 Shelia Moody M.D. [facility] PRO CEDURES documented in this encounter Visit Diagnoses Not on filedocumented in this encounter
--- OUTSIDE RECORDS SUMMARY | 2024-01-17 10:07 | XMS_ITS | Encounter Summary ---
Author Organization [facility] Address [address] [place] [address] Care Team Providers Care Healthcare Project Manager Name Role Phone Unavailable Primary Care Provider Unavailabl e Encounter Details Date Type Department Care Team (Late st Contact Info) Description 11/30/2023 12:05 AM CDT Ancillary Procedure Department of Ophthalmology Social History Tobacco Use Types Packs/Day Years Used Date Smoking Tobacco: Unknown [facility] Utilities Answer Date Recorded In the [...] AM CDT Appointment Outpatient Procedure Center in [address] [phone] Suri Izquierdo M.D. [address] [place] [phone] 02/26/2024 1:00 PM CHANGE RELEASE MANAGER Ancillary Procedure Department of Ophthalmology in [place], [place] [address] [place] [address] Suri Izquierdo M.D. [address] [place] [phone] 02/26/2024 1:30 PM CHANGE RELEASE MANAGER Ancillary Procedure Department of Ophthalmology in [place], [place] [address] [place] [address] 02/26/2024 2:00 PM CHANGE RELEASE MANAGER Ancillary Procedure Department of Ophthalmology in [place], [place] [address] [place] [phone] Suri Izquierdo M.D. [address] [place] [phone] 02/26/2024 2:15 PM CHANGE RELEASE MANAGER Ancillary Procedure Department of Ophthalmology in [place], [place] [address] [place] [address] Suri Izquierdo M.D. [address] [place] [address] documented as of this encounter Procedures Procedure Name Priority Date/Time Associated Diagnosis Comments OPHTHALMOLOGY IMAGE EXAM Routine 11/30/2023 12:05 AM CDT documented in this encounter Results * Eyes US-Eye U-Aogw-Sntksqaazeqam Image Exam (11/30/2023 12:05 AM CDT) Narrative [...]
--- OUTSIDE RECORDS SUMMARY | 2024-01-17 10:07 | XMS_ITS | Encounter Summary ---
Author Organization [facility] Address [address] [place] [address] Care Team Providers Care Recycling Specialist Name Role Phone Unavailable Primary Care Provider Unavailabl e Reason for Visit * Outpatient (Routine) - Closed Specialty Diagnoses / Procedures Referred By Janeth t Referred To Contact Ophthalmology Suri Izquierdo M.D. [address] [place] [phone] [facility] Referral ID Status Reason Start Date Expiration Date Visits Re quested Visits Authorized [id number] Closed 11/09/2023 05/10/2025 1 1 Encounter Details Date Type Department Care Team (Latest Contact Info) Description 11/30/2023 1:30 PM CDT Office Visit Department of Ophthalmology in [place], [place] [address] [place] [phone] Suri Izquierdo M.D. [address] [place] [phone] Hemorrhage Vitreous Left (HCC) (Primary Dx); Retinal [...] is also scheduled with neurology here at [place] in December and saw his local construction supervisor earlier this month. PLAN: - Pre-operative evaluation [...] last injection with OCT macula. Injection Location: [place] Hold injection slot in [place]? Left eye Injection plan staffed with Dr. Herrera on 10/19/23 Patient discussed and seen with Dr. Jara and Dr. Ferris today, 11/30/23. Suri Izquierdo M.D. PGY-2 Ophthalmology Resident documented in this encounter Plan of Treatment Upcoming Encounters Date Type Department Care Team (Latest Contact Info) Description 01/24/2024 8:20 AM CDT Appointment Outpatient Procedure Center in [address] [phone] Suri Izquierdo M.D. [address] [place] [phone] 02/26/2024 1:00 PM LUSTERER Ancillary Procedure Department of Ophthalmology in [place], [place] [address] [place] [phone] Suri Izquierdo M.D. [address] [place] [phone] 02/26/2024 1:30 PM LUSTERER Ancillary Procedure Department of Ophthalmology in [place], [place] [address] [place] [address] [place] [phone] 02/26/2024 2:00 PM LUSTERER Ancillary Procedure Department of Ophthalmology in [place], [place] [address] [place] [address] Suri Izquierdo M.D. [address] [place] [phone] 02/26/2024 2:15 PM LUSTERER Ancillary Procedure Department of Ophthalmology in [place], [place] [address] [place] [address] Suri Izquierdo M.D. 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
--- OUTSIDE RECORDS SUMMARY | 2024-01-17 10:07 | XMS_ITS | Encounter Summary ---
Author Organization [facility] Address [address] [place] [address] Care Team Providers Care Identification Officer Name Role Phone Unavailable Primary Care Provider Unavailabl e Reason for Referral * Outpatient (Routine) - Authorized Specialty Diagnoses / Procedures Referred By Janeth phillips Referred To Contact Vascular Medicine Diagnoses Ischemia Retina Occlusion Carotid Artery Left Suri Izquierdo M.D. 200 [place] [address] [facility] Referral ID Status Reason Start Date Expiration Date V isits Requested Visits Authorized [id number] Authorized 11/03/2023 05/04/2025 1 1 * Outpatient (Routine) - Closed Specialty Diagnoses / Procedures Referred By Janeth phillips Referred To Contact Ophthalmology Suri Izquierdo M.D. 200 [place] [address] [facility] Referral ID Status Reason Start Date Expiration Date Visits Re quested Visits Authorized [id number] Closed 11/02/2023 05/03/2025 1 1 Reason for Visit * Reason Comments Occlusion Carotid Artery Lef * Outpatient (Routine) - Closed Specialty Diagnoses / Procedures Referred By Janeth phillips Referred To Contact Ophthalmology Suri Izquierdo M.D. 200 [place] [address] [facility] Referral ID Status Reason Start Date Expiration Date Visits Re quested Visits Authorized [id number] Closed 10/23/2023 04/23/2025 1 1 Encounter Details Date Type Department Care Team (Latest Contact Info) Description 11/02/2023 12:45 PM CDT Office Visit Department of Ophthalmology in [place], [place] [address] [place] [phone] Suri Izquierdo M.D. [address] [place] [phone] Hemorrhage Vitreous Left (HCC) (Primary Dx); Ischemia [...] understanding.He is scheduled with neurology here at [place] in December. The patient plans to schedule an appointment with his vascular physician in the [facility], and I have placed a referral [...] last injection with OCT macula. Injection Location: [place] Hold injection slot in [place]? Left eye Staffed with Dr. Herrera on 10/19/23 Patient discussed and seen with Dr. Calderon today. Suri Izquierdo M.D. PGY-2 Ophthalmology Resident documented in this encounter Plan of Treatment Upcoming Encounters Date Type Department Care Team (Latest Contact Info) Description 01/24/2024 8:20 AM CDT Appointment Outpatient Procedure Center in [address] [phone] Suri Izquierdo M.D. [address] [place] [address] 02/26/2024 1:00 PM LOCKER ROOM ATTENDANT Ancillary Procedure Department of Ophthalmology in [place], [place] [address] [place] [address] Suri Izquierdo M.D. [address] [place] [address] 02/26/2024 1:30 PM LOCKER ROOM ATTENDANT Ancillary Procedure Department of Ophthalmology in [place], [place] [address] [place] [address] 02/26/2024 2:00 PM LOCKER ROOM ATTENDANT Ancillary Procedure Department of Ophthalmology in [place], [place] [address] [place] [address] Suri Izquierdo M.D. [address] [place] [phone] 02/26/2024 2:15 PM LOCKER ROOM ATTENDANT Ancillary Procedure Department of Ophthalmology in [place], [place] [address] [place] [address] Suri Izquierdo M.D. [address] [place] [phone] Scheduled Referrals Name Type Priority Associated Diagnoses [...]
--- OUTSIDE RECORDS SUMMARY | 2024-01-17 10:08 | XMS_ITS | Encounter Summary ---
Author Organization [facility] Address [address] [place] [address] Care Team Providers Care Farm Marketer Name Role Phone Unavailable Primary Care Provider Unavailabl e Encounter Details Date Type Department Care Team (Latest Contact Info) Description 10/18/2023 Clinical Communication Department of Ophthalmology in [place], [place] [address] [place] [address] Provider, Unknown Social History Tobacco Use Types Packs/Day Years Used Date Smoking Tobacco: Unknown [facility] Utilities Answer Date Recorded In the past 12 months has [facility] electric, gas, oil, or water company [...] living situation today? I have a [facility] place to live 07/25/2023 Sex [...] CDT Appointment Outpatient Procedure Center in [address] [phone] Suri Izquierdo M.D. [address] [place] [address] 02/26/2024 1:00 PM BENCH ASSEMBLER ELECTRICAL Ancillary Procedure Department of Ophthalmology in [place], [place] [address] [place] [address] Srui Izquierdo M.D. [address] [place] [address] 02/26/2024 1:30 PM BENCH ASSEMBLER ELECTRICAL Ancillary Procedure Department of Ophthalmology in [place], [place] [address] [place] [address] 02/26/2024 2:00 PM BENCH ASSEMBLER ELECTRICAL Ancillary Procedure Department of Ophthalmology in [place], [place] [address] [place] [address] Suri Izquierdo M.D. [address] [place] [phone] 02/26/2024 2:15 PM BENCH ASSEMBLER ELECTRICAL Ancillary Procedure Department of Ophthalmology in [place], [place] [address] [place] [address] Suri Izquierdo M.D. [address] [place] [address] documented as of this encounter Visit Diagnoses Not on filedocumented in this encounter
--- OUTSIDE RECORDS SUMMARY | 2024-01-17 10:08 | XMS_ITS | Encounter Summary ---
Author Organization [facility] Address [address] [place] [address] Care Team Providers Care Mechanical Equipment Sales Engineer Name Role Phone Unavailable Primary Care Provider Unavailabl e Encounter Details Date Type Department Care Team (Latest Contact Info) Description 10/19/2023 2:00 PM CDT Ancillary Procedure Department of Ophthalmology in [place], [place] [address] [place] [address] Suri Izquierdo M.D. [address] [place] [address] Glaucoma Neovascular; Hemorrhage Vitreous Left (HCC) Social History Tobacco Use Types Packs/Day Years Used Date Smoking Tobacco: Unknown [facility] Utilities Answer Date Recorded In the past 12 months has [facility] electric, gas, oil, or water [...] AM CDT Appointment Outpatient Procedure Center in [address] [address] Suri Izquierdo M.D. [address] [place] [address] 02/26/2024 1:00 PM FEDERAL DISTRICT CLERK Ancillary Procedure Department of Ophthalmology in [place], [place] [address] [place] [address] Suri Izquierdo M.D. 200 [place] [address] 02/26/2024 1:30 PM FEDERAL DISTRICT CLERK Ancillary Procedure Department of Ophthalmology in [place], [place] [address] [place] [address] 02/26/2024 2:00 PM FEDERAL DISTRICT CLERK Ancillary Procedure Department of Ophthalmology in [place], [place] [address] [place] [address] Suri Izquierdo M.D. [address] [place] [address] 02/26/2024 2:15 PM FEDERAL DISTRICT CLERK Ancillary Procedure Department of Ophthalmology in [place], [place] [address] [place] [address] Suri Izquierdo M.D. [address] [place] [address] documented as of this encounter Procedures Procedure [...]
--- OUTSIDE RECORDS SUMMARY | 2024-01-17 10:08 | XMS_ITS | Encounter Summary ---
Author Organization [facility] Address [address] [place] [address] Care Team Providers Care Wood Room Supervisor Name Role Phone Unavailable Primary Care Provider Unavailabl e Reason for Referral * Outpatient (Routine) - Closed Specialty Diagnoses / Procedures Referred By Janeth phillips Referred To Contact Neurology Diagnoses Occlusion Carotid Artery Left Ischemia Retina Glaucoma Neovascular Neuropathy Optic Ischemic Bilateral Suri Izquierdo M.D. 200 [place] [address] [facility] Referral ID Status Reason Start Date Expiration Date Visits Re quested Visits Authorized [id number] Closed 10/23/2023 04/23/2025 1 1 * Outpatient (Routine) - Closed Specialty Diagnoses / Procedures Referred By Janeth phillips Referred To Contact Ophthalmology Suri Izquierdo M.D. 200 [place] [address] [facility] Referral ID Status Reason Start Date Expiration Date Visits Re quested Visits Authorized [id number] Closed 10/23/2023 04/23/2025 1 1 Scheduling Instructions VTD Reason for Visit * Outpatient (Routine) - Closed Specialty Diagnoses / Procedures Referred By Janeth phillips Referred To Contact Ophthalmology Suri Izquierdo M.D. 200 [place] [address] [facility] Referral ID Status Reason Start Date Expiration Date Visits Re quested Visits Authorized [id number] Closed 10/19/2023 04/19/2025 1 1 Encounter Details Date Type Department Care Team (Latest Contact Info) Description 10/23/2023 12:30 PM CDT Office Visit Department of Ophthalmology in [place], [place] [address] [place] [address] Suri Izquierdo M.D. [address] [place] [phone] Occlusion Carotid Artery Left (Primary Dx); Ischemia Retina; Glaucoma Neovascular; Neuropathy Optic Ischemic Bilateral Social History Tobacco Use Types Packs/Day Years Used Date Smoking Tobacco: Unknown [facility] Utilities Answer Date Recorded In the past 12 months has e [employer], gas, oil, or water [employer] threatened to shut off services in your [...] your living situation today? I have a [facility] place to live 07/25/2023 Sex and [...] had to drive to pharmacy in the [facility] to fill the prescription. He is otherwise using all his eye drops as instructed. After discussing with his children, he decided that he would prefer to establish care with a vascular specialist and or stroke specialist here at [facility], so he did not reach out [...] place a referral tostroke neurology here at [place]. PLAN: - Avastin injection this afternoon in [...] last injection with OCT macula. Injection Location: [place] Hold injection slot in [place]? Left eye Staffed with Dr. Herrera on 10/19/23 Patient discussed and seen with Dr. Sanchez today. Suri Izquierdo M.D. PGY-2 Ophthalmology Resident documented in this encounter Plan of Treatment Upcoming Encounters Date Type Department Care Team (Latest Contact Info) Description 01/24/2024 8:20 AM CDT Appointment Outpatient Procedure Center in [address] [phone] Suri Izquierdo M.D. [address] [place] [phone] 02/26/2024 1:00 PM POLISHER EYEGLASS FRAMES Ancillary Procedure Department of Ophthalmology in [place], [place] [address] [place] [phone] Suri Izquierdo M.D. [address] [place] [phone] 02/26/2024 1:30 PM POLISHER EYEGLASS FRAMES Ancillary Procedure Department of Ophthalmology in [place], [place] [address] [place] [address] 02/26/2024 2:00 PM POLISHER EYEGLASS FRAMES Ancillary Procedure Department of Ophthalmology in [place], [place] [address] [place] [address] Suri Izquierdo M.D. [address] [place] [address] 02/26/2024 2:15 PM POLISHER EYEGLASS FRAMES Ancillary Procedure Department of Ophthalmology in [place], [place] [address] [place] [address] Suri Izquierdo M.D. [address] [place] [address] Scheduled Referrals Name Type Priority Associated Diagnoses [...]
--- OUTSIDE RECORDS SUMMARY | 2024-01-17 10:08 | XMS_ITS | Encounter Summary ---
Author Organization [facility] Address [address] [place] [address] Care Team Providers Care Mold Maker Plastic Molds Name Role Phone Unavailable Primary Care Provider Unavailabl e Encounter Details Date Type Department Care Team (Latest Contact Info) Description 09/11/2023 Clinical Communication Department of Ophthalmology in [place], [place] [address] [place] [address] Rachel Collins M.D., Ph.D. [address] [place] [address] Social History Tobacco Use Types Packs/Day Years Used Date Smoking Tobacco: Unknown [facility] Utilities Answer Date Recorded In the [...] your living situation today? I have a [facility] place to live 07/25/2023 Sex and [...] CDT Appointment Outpatient Procedure Center in [address] [address] Suri Izquierdo M.D. [address] [place] [address] 02/26/2024 1:00 PM PHYSICS FACULTY MEMBER Ancillary Procedure Department of Ophthalmology in [place], [place] [address] [place] [address] Suri Izquierdo M.D. 200 [place] [address] 02/26/2024 1:30 PM PHYSICS FACULTY MEMBER Ancillary Procedure Department of Ophthalmology in [place], [place] [address] [place] [address] 02/26/2024 2:00 PM PHYSICS FACULTY MEMBER Ancillary Procedure Department of Ophthalmology in [place], [place] [address] [place] [address] Suri Izquierdo M.D. [address] [place] [phone] 02/26/2024 2:15 PM PHYSICS FACULTY MEMBER Ancillary Procedure Department of Ophthalmology in [place], [place] [address] [place] [address] Suri Izquierdo M.D. [address] [place] [phone] documented as of this encounter Visit Diagnoses Not on filedocumented in this encounter
--- OUTSIDE RECORDS SUMMARY | 2024-01-17 10:08 | XMS_ITS | Encounter Summary ---
Author Organization [facility] Address [address] [place] [address] Care Team Providers Care Advanced Practice Provider Name Role Phone Unavailable Primary Care Provider Unavailabl e Reason for Referral * Outpatient (Routine) - Authorized Specialty Diagnoses / Procedures Referred By Janeth phillips Referred To Contact Vascular Medicine Diagnoses Glaucoma Neovascular uSri Izquierdo M.D. [address] [place] [address] [facility] Referral ID Status Reason Start Date Expiration Date V isits Requested Visits Authorized [id number] Authorized 10/19/2023 04/19/2025 1 1 * Outpatient (Routine) - Closed Specialty Diagnoses / Procedures Referred By Janeth phillips Referred To Contact Ophthalmology Suri Izquierdo M.D. [address] [place] [address] [facility] Referral ID Status Reason Start Date Expiration Date Visits Re quested Visits Authorized [id number] Closed 10/19/2023 04/19/2025 1 1 Reason for Visit * Appointment Request (Routine) - Closed Specialty Diagnoses / Procedures Referred By Janeth t Referred To Contact Ophthalmology Referral ID Status Reason Start Date Expiration Date Visits Re quested Visits Authorized [id number] Closed 10/18/2023 10/17/2024 1 1 Encounter Details Date Type Department Care Team (Latest Contact Info) Description 10/19/2023 10:30 AM CDT Comprehensive Visit Department of Ophthalmology in [place], [place] [address] [place] [address] Suri Izquierdo M.D. [address] [place] [address] Glaucoma Neovascular (Primary Dx); Hemorrhage Vitreous Left (HCC) Social History Tobacco Use Types Packs/Day Years Used Date Smoking Tobacco: Unknown [facility] Utilities Answer Date Recorded In [...] a referral for vascular medicine here at [place] if it is more convenient to group [...] last injection with OCT macula. Injection Location: [place] Hold injection slot in [place]? Left eye Staffed with Dr. Herrera. Patient [...] AM CDT Appointment Outpatient Procedure Center in [address] [address] Suri Izquierdo M.D. [address] [place] [address] 02/26/2024 1:00 PM MOTOR BIKE MECHANIC Ancillary Procedure Department of Ophthalmology in [place], [place] [address] [place] [address] Suri Izquierdo M.D. [address] [place] [address] 02/26/2024 1:30 PM MOTOR BIKE MECHANIC Ancillary Procedure Department of Ophthalmology in [place], [place] [address] [place] [address] 02/26/2024 2:00 PM MOTOR BIKE MECHANIC Ancillary Procedure Department of Ophthalmology in [place], [place] [address] [place] [address] Suri Izquierdo M.D. [address] [place] [address] 02/26/2024 2:15 PM MOTOR BIKE MECHANIC Ancillary Procedure Department of Ophthalmology in [place], [place] [address] [place] [address] Suri Izquierdo M.D. [address] [place] [address] Scheduled Referrals Name Type Priority Associated Diagnoses [...] mass noted. Suri Izquierdo M.D. [facility] NON-IMAGING ORDERS documented in this encounter Visit Diagnoses Diagnosis Glaucoma Neovascular- Primary Hemorrhage Vitreous Left (HCC) Glaucoma Neovascular Hemorrhage Vitreous Left (HCC) documented in this encounter
--- OUTSIDE RECORDS SUMMARY | 2024-01-17 10:08 | XMS_ITS | Encounter Summary ---
Author Organization [facility] Address [address] [place] [address] Care Team Providers Care Seo Expert Name Role Phone Unavailable Primary Care Provider Unavailabl e Encounter Details Date Type Department Care Team (Latest Contact Info) Description 10/16/2023 Clinical Communication Department of Ophthalmology in [place] [address] [place] [address] Red Gallego M.D. [address] [place] [phone] Social History Tobacco Use Types Packs/Day Years Used Date Smoking Tobacco: Unknown [facility] Utilities Answer Date Recorded In the past 12 months has [facility] electric, gas, oil, or water [...] AM CDT Appointment Outpatient Procedure Center in [address] [address] Suri Izquierdo M.D. [address] [place] [address] 02/26/2024 1:00 PM PERSONNEL MANAGER Ancillary Procedure Department of Ophthalmology in [place], [place] [address] [place] [address] Suri Izquierdo M.D. [address] [place] [address] 02/26/2024 1:30 PM PERSONNEL MANAGER Ancillary Procedure Department of Ophthalmology in [place], [place] [address] [place] [address] 02/26/2024 2:00 PM PERSONNEL MANAGER Ancillary Procedure Department of Ophthalmology in [place], [place] [address] [place] [address] Suri Izquierdo M.D. [address] [place] [phone] 02/26/2024 2:15 PM PERSONNEL MANAGER Ancillary Procedure Department of Ophthalmology in [place], [place] [address] [place] [address] Suri Izquierdo M.D. [address] [place] [address] documented as of this encounter Visit Diagnoses Not on filedocumented in this encounter
--- OUTSIDE RECORDS SUMMARY | 2024-01-17 10:08 | XMS_ITS | Encounter Summary ---
Author Organization [facility] Address [address] [place] [address] Care Team Providers Care Mass Spectroscopist Name Role Phone Unavailable Primary Care Provider Unavailabl e Reason for Referral * Outpatient (Routine) - Authorized Specialty Diagnoses / Procedures Referred By Janeth phillips Referred To Contact Diagnoses Glaucoma Neovascular Procedures Intravitreal Injection, Pharmacologic Agent - OS - Left Eye Suri Izquierdo M.D. [address] [place] [address] [facility] Region Referral ID Status Reason Start Date Expiration Date V isits Requested Visits Authorized [id number] Authorized 10/19/2023 10/18/2024 5 5 Reason for Visit * Outpatient (Routine) - Authorized Specialty Diagnoses / Procedures Referred By Janeth phillips Referred To Contact Diagnoses Glaucoma Neovascular Procedures Intravitreal Injection, Pharmacologic Agent - OS - Left Eye Suri Izquierdo M.D. [address] [place] [address] [facility] Region Referral ID Status Reason Start Date Expiration Date V isits Requested Visits Authorized [id number] Authorized 10/19/2023 10/18/2024 5 5 Encounter Details Date Type Department Care Team (Latest Contact Info) Description 10/23/2023 1:51 PM CDT - 10/23/2023 2:53 PM CDT Hospital Encounter Outpatient Procedure Center in [place], [place] [address] [place] [address] Suri Izquierdo M.D. [address] [place] [address] Glaucoma Neovascular Discharge Disposition: Home or Self Care Social History Tobacco Use Types Packs/Day Years Used Date Smoking Tobacco: Unknown [facility] Utilities Answer Date Recorded In the past 12 months has th e [employer], gas, oil, or water [employer] threatened to shut off services in your [...] CDT Appointment Outpatient Procedure Center in [address] [address] Suri Izquierdo M.D. [address] [place] [address] 02/26/2024 1:00 PM HOUSING AND RESIDENCE LIFE DIRECTOR Ancillary Procedure Department of Ophthalmology in [place], [place] [address] [place] [address] Suri Izquierdo M.D. [address] [place] [address] 02/26/2024 1:30 PM HOUSING AND RESIDENCE LIFE DIRECTOR Ancillary Procedure Department of Ophthalmology in [place], [place] [address] [place] [address] 02/26/2024 2:00 PM HOUSING AND RESIDENCE LIFE DIRECTOR Ancillary Procedure Department of Ophthalmology in [place], [place] [address] [place] [address] Suri Izquierdo M.D. [address] [place] [phone] 02/26/2024 2:15 PM HOUSING AND RESIDENCE LIFE DIRECTOR Ancillary Procedure Department of Ophthalmology in [place], [place] [address] [place] [address] Suri Izquierdo M.D. [address] [place] [phone] documented as of this encounter Procedures Procedure [...] 25 mg/mL ??Route: intravitreal, Site: Left Eye ??[facility]: 02473-310-43 Balanced salt solution irrigation to injected eye [...] and return schedule given if requested. MEHRDAD [id number] Exp 01/06/24 Shelia Moody M.D. OPHTH CLINIC [...]
--- OUTSIDE RECORDS SUMMARY | 2024-01-17 10:08 | XMS_ITS | Encounter Summary ---
Author Organization [facility] Address [address] [place] [address] Care Team Providers Care Front End Architect Name Role Phone Unavailable Primary Care Provider Unavailabl e Encounter Details Date Type Department Care Team (Late st Contact Info) Description 10/19/2023 Ancillary Procedure Department of Ophthalmology Social History Tobacco Use Types Packs/Day Years Used Date Smoking Tobacco: Unknown [facility] Utilities Answer Date Recorded In the past 12 months has th e electric, gas, oil, or water [employer] threatened to shut off services in your [...] CDT Appointment Outpatient Procedure Center in [address] [address] Suri Izquierdo M.D. [address] [place] [address] 02/26/2024 1:00 PM PHOTOGRAPH EDITOR Ancillary Procedure Department of Ophthalmology in [place], [place] [address] [place] [address] Suri Izquierdo M.D. [address] [place] [address] 02/26/2024 1:30 PM PHOTOGRAPH EDITOR Ancillary Procedure Department of Ophthalmology in [place], [place] [address] [place] [address] 02/26/2024 2:00 PM PHOTOGRAPH EDITOR Ancillary Procedure Department of Ophthalmology in [place], [place] [address] [place] [phone] Suri Izquierdo M.D. [address] [place] [phone] 02/26/2024 2:15 PM PHOTOGRAPH EDITOR Ancillary Procedure Department of Ophthalmology in [place], [place] [address] [place] [address] Suri Izquierdo M.D. [address] [place] [address] documented as of this encounter Procedures Procedure Name Priority Date/Time Associated Diagnosis Comments OPHTHALMOLOGY IMAGE EXAM Routine 10/19/2023 12:00 AM CDT documented in this encounter Results * Eyes US-Eye [id number] Image Exam (10/19/2023 12:00 AM CDT) Narrative [...]
--- OUTSIDE RECORDS SUMMARY | 2024-01-17 10:08 | XMS_ITS | Encounter Summary ---
Author Organization [facility] Address [address] [place] [address] Care Team Providers Care Copy Center Operator Name Role Phone Unavailable Primary Care Provider Unavailabl e Encounter Details Date Type Department Care Team (Latest Contact Info) Description 10/19/2023 Clinical Communication Department of Ophthalmology in [place], [place] [address] [place] [address] Suri Izquierdo M.D. [address] [place] [address] Social History Tobacco Use Types Packs/Day Years Used Date Smoking Tobacco: Unknown [facility] Utilities Answer Date Recorded In the [...] your living situation today? I have a [facility] place to live 07/25/2023 [...] AM CDT Appointment Outpatient Procedure Center in [address] [address] Suri Izquierdo M.D. [address] [place] [address] 02/26/2024 1:00 PM PERIPHERAL EDP EQUIPMENT OPERATOR Ancillary Procedure Department of Ophthalmology in [place], [place] [address] [place] [address] Suri Izquierdo M.D. [address] [place] [address] 02/26/2024 1:30 PM PERIPHERAL EDP EQUIPMENT OPERATOR Ancillary Procedure Department of Ophthalmology in [place], [place] [address] [place] [address] 02/26/2024 2:00 PM PERIPHERAL EDP EQUIPMENT OPERATOR Ancillary Procedure Department of Ophthalmology in [place], [place] [address] [place] [address] Suri Izquierdo M.D. [address] [place] [address] 02/26/2024 2:15 PM PERIPHERAL EDP EQUIPMENT OPERATOR Ancillary Procedure Department of Ophthalmology in [place], [place] [address] [place] [address] Suri Izquierdo M.D. [address] [place] [address] documented as of this encounter Visit Diagnoses Not on filedocumented in this encounter
--- OUTSIDE RECORDS SUMMARY | 2024-01-17 10:08 | XMS_ITS | Encounter Summary ---
Author Organization [facility] Address [address] [place] [address] Care Team Providers Care Artificial Log Machine Operator Name Role Phone Unavailable Primary Care Provider Unavailabl e Reason for Referral * Outpatient (Routine) - Authorized Specialty Diagnoses / Procedures Referred By Janeth phillips Referred To Contact Diagnoses Glaucoma Neovascular Procedures Intravitreal Injection, Pharmacologic Agent - OS - Left Eye Suri Izquierdo M.D. [address] [place] [address] [facility] Referral ID Status Reason Start Date Expiration Date V isits Requested Visits Authorized [id number] Authorized 10/19/2023 10/18/2024 5 5 * Outpatient (Routine) - Authorized Specialty Diagnoses / Procedures Referred By Janeth phillips Referred To Contact Ophthalmology Suri Izquierdo M.D. 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 Follow-up for 3 more injections of Avastin in the left eye every 4 - weeks. Followup: 4 - 5 weeks after last injection with OCT macula. Injection Location: [facility] Hold injection slot in [place]? Left eye Encounter Details Date Type Department Care Team (Late st Contact Info) Description 10/19/2023 Orders Only Department of Ophthalmology in [place], [place] [address] [place] [address] Juan David Cabrales M.D. [address] [place] [address] Glaucoma Neovascular (Primary Dx); Hemorrhage Vitreous Left [...] Outpatient Procedure Center in [address] [address] Suri Izquierdo M.D. [address] [place] [address] 02/26/2024 1:00 PM FOUNDRY EQUIPMENT MECHANIC Ancillary Procedure Department of Ophthalmology in [place], [place] [address] [place] [address] Suri Izquierdo M.D. [address] [place] [address] 02/26/2024 1:30 PM FOUNDRY EQUIPMENT MECHANIC Ancillary Procedure Department of Ophthalmology in [place], [place] [address] [place] [address] 02/26/2024 2:00 PM FOUNDRY EQUIPMENT MECHANIC Ancillary Procedure Department of Ophthalmology in [place], [place] [address] [place] [address] Suri Izquierdo M.D. [address] [place] [address] 02/26/2024 2:15 PM FOUNDRY EQUIPMENT MECHANIC Ancillary Procedure Department of Ophthalmology in [place], [place] [address] [place] [address] Suri Izquierdo M.D. [address] [place] [phone] Scheduled Orders Name Type Priority Associated Diagnoses [...] or count fingers. Avastin, LEFT eye. [facility] 54884-251-52 LOT [id number] EXP 01/19/2024 [place] pain with injection after multiple numbing drops [...] mg/mL ??Route: intravitreal, Site: Left Eye ??[facility]: 73361-149-50 Balanced salt solution irrigation to injected eye [...] or count fingers. Avastin, LEFT eye. [facility] 12014-370-52 LOT [id number] EXP 01/06/2024 First injection in [place]. ??Poor [...]
== END 2024-01-17 10:02 | disposition home or self-care (01) ==
LOC: WOUND 10:01
PROVIDERS: PCP Family Medicine; Visit Provider Nurse Practitioner Family
DX: I87.311 Chronic venous hypertension (idiopathic) with ulcer of right lower extremity (principal); I89.0 Lymphedema, not elsewhere classified; L97.212 Non-pressure chronic ulcer of right calf with fat layer exposed; Z72.0 Tobacco use
CPT/HCPCS: 15271; Q4151

== ENCOUNTER 2024-01-31 10:01 | Outpatient (CLI) | payer MEDICARE, BC, SELFPAY ==
--- OUTSIDE RECORDS SUMMARY | 2024-01-31 10:11 | XMS_ITS | Encounter Summary ---
Author Organization [facility] Address [address] [place] [address] Care Team Providers Care Roofer Apprentice Name Role Phone Unavailable Primary Care Provider Unavailabl e Encounter Details Date Type Department Care Team (Latest Contact Info) Description 01/09/2024 Clinical Communication Department of Ophthalmology in [place], [place] [address] [place] [address] Doc Ferris M.D. [address] [place] [address] Social History Tobacco Use Types Packs/Day Years Used Date Smoking Tobacco: Every Day Cigarettes Smokeless Tobacco: Never [facility] Utilities Answer [...] Assigned at Male 07/25/2023 8:23 PM CDT Legal Sex Male 4:05 PM BED PLACEMENT COORDINATOR Gender Identity Male 07/25/2023 8:23 PM CDT Sexual Orientation Straight 07/25/2023 8: 23 PM CDT documented as of this encounter Plan of Treatment Upcoming Encounters Date Type Department Care Team (Latest Contact Info) Description 02/26/2024 1:00 PM BED PLACEMENT COORDINATOR Ancillary Procedure Department of Ophthalmology in [place], [place] [address] [place] [address] Suri Izquierdo M.D. [address] [place] [address] 02/26/2024 1:30 PM BED PLACEMENT COORDINATOR Ancillary Procedure Department of Ophthalmology in [place], [place] [address] [place] [address] 02/26/2024 2:00 PM BED PLACEMENT COORDINATOR Ancillary Procedure Department of Ophthalmology in [place], [place] [address] [place] [address] Suri Izquierdo M.D. [address] [place] [address] 02/26/2024 2:15 PM BED PLACEMENT COORDINATOR Ancillary Procedure Department of Ophthalmology in [place], [place] [address] [place] [address] Suri Izquierdo M.D. [address] [place] [address] 03/21/2024 12:20 PM BED PLACEMENT COORDINATOR Appointment Outpatient Procedure Center in [address] [address] Suri Izquierdo M.D. [address] [place] [address] documented as of this encounter Visit Diagnoses Not on filedocumented in this encounter
--- OUTSIDE RECORDS SUMMARY | 2024-01-31 10:11 | XMS_ITS | Encounter Summary ---
Author Organization [facility] Address [address] [place] [address] Care Team Providers Care Welding Machine Operator Electron Beam Name Role Phone Unavailable Primary Care Provider Unavailabl e Reason for Referral * Outpatient (Routine) - Authorized Specialty Diagnoses / Procedures Referred By Janeth phillips Referred To Contact Diagnoses Glaucoma Neovascular Procedures Intravitreal Injection, Pharmacologic Agent - OS - Left Eye Suri Izquierdo M.D. [address] [place] [address] Phone: tel: fax: [facility] Region Referral ID Status Reason Start Date Expiration Date V isits Requested Visits Authorized [id number] Authorized 10/19/2023 10/18/2024 5 5 Reason for Visit * Outpatient (Routine) - Authorized Specialty Diagnoses / Procedures Referred By Janeth phillips Referred To Contact Diagnoses Glaucoma Neovascular Procedures Intravitreal Injection, Pharmacologic Agent - OS - Left Eye Suri Izquierdo M.D. [address] [place] [address] Phone: tel: [facility] Region Referral ID Status Reason Start Date Expiration Date V isits Requested Visits Authorized [id number] Authorized 10/19/2023 10/18/2024 5 5 Encounter Details Date Type Department Care Team (Latest Contact Info) Description 12/27/2023 1:01 PM CDT - 12/27/2023 11:59 PM CDT Hospital Encounter Outpatient Procedure Center in [address] [address] Suri Izquierdo M.D. [address] [place] [address] Glaucoma Neovascular Discharge Disposition: Home or Self Care Social History Tobacco Use Types Packs/Day Years Used Date Smoking Tobacco: Every Day Cigarettes Smokeless Tobacco: Never [facility] Utilities Answer Date Recorded In [...] PM CDT Legal Sex Male 4:05 PM SALES ACCOUNT ASSOCIATE Gender Identity Male 07/25/2023 8:23 PM CDT Sexual Orientation Straight 07/25/2023 8: 23 PM CDT documented as of this encounter Medications at Time of Discharge acetaminophen (TYLENOL) 325 mg tablet Take 650 [...] times a day. 5 mL 3 10/19/2023 documented as of this encounter Plan of Treatment Upcoming Encounters Date Type Department Care Team (Latest Contact Info) Description 02/26/2024 1:00 PM SALES ACCOUNT ASSOCIATE Ancillary Procedure Department of Ophthalmology in [place], [place] [address] [place] [phone] Suri Izquierdo M.D. [address] [place] [address] 02/26/2024 1:30 PM SALES ACCOUNT ASSOCIATE Ancillary Procedure Department of Ophthalmology in [place], [place] [address] [place] [address] 02/26/2024 2:00 PM SALES ACCOUNT ASSOCIATE Ancillary Procedure Department of Ophthalmology in [place], [place] [address] [place] [address] Suri Izquierdo M.D. [address] [place] [address] 02/26/2024 2:15 PM SALES ACCOUNT ASSOCIATE Ancillary Procedure Department of Ophthalmology in [place], [place] [address] [place] [phone] Suri Izquierdo M.D. [address] [place] [phone] 03/21/2024 12:20 PM SALES ACCOUNT ASSOCIATE Appointment Outpatient Procedure Center in [address] [address] Suri Izquierdo M.D. [address] [place] [phone] (work) documented as of this encounter Procedures [...] motion or count fingers. Avastin, LEFT eye. [facility] 13973-765-16 LOT [id number] EXP 01/19/2024 [place] pain with injection after multiple numbing drops and Q-tips. Would recommend subconj lido/epi No complications. Nicholas Carlos MD us Suri Izquierdo M.D. OPHTH CLINIC PROCEDURE S Edited Result - Final documented in this encounter Visit Diagnoses Diagnosis Glaucoma Neovascular documented in this encounter Administered Medications Inactive Administered Medications - up to 3 most recent administrations Medication Order MAR Action Action Date Dose Rate Site bevacizumab intraocular injection 1.25 mg (Avastin) 1.25 mg, intravitreal, One-Time Injection, Starting on Yun 12/27/23 at 1322, For 1 doseIndications:Glaucoma Neovascular Given 12/27/2023 1:22 PM CDT 1.25 mg Left Eye documented in this encounter
--- OUTSIDE RECORDS SUMMARY | 2024-01-31 10:11 | XMS_ITS | Encounter Summary ---
Author Organization [facility] Address [address] [place] [address] Care Team Providers Care Network Solutions Architect Name Role Phone Unavailable Primary Care Provider Unavailabl e Reason for Referral * Outpatient (Routine) - Authorized Specialty Diagnoses / Procedures Referred By Janeth phillips Referred To Contact Ophthalmology Doc Ferris M.D. 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 Followup: 8-weeks after last injection-- no testing Injection Location: [place] Hold injection slot in [place]? 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 [address] [place] [address] Phone: tel: fax: [facility] Referral ID Status Reason Start Date Expiration Date V isits Requested Visits Authorized [id number] Authorized 01/11/2024 01/10/2025 2 2 * Outpatient (Routine) - Authorized Specialty Diagnoses / Procedures Referred By Contac t Referred To Contact Diagnoses Retinal Detachment With Single Break Left Eye Procedures OPH Tech-Only Pre-Injection Appointment Doc Ferris M.D. [address] [place] [address] Phone: tel: fax: [facility] Referral ID Status Reason Start Date Expiration Date V isits Requested Visits Authorized [id number] Authorized 01/11/2024 01/10/2025 1 1 Encounter Details Date Type Department Care Team (Late st Contact Info) Description 01/11/2024 Orders Only Department of Ophthalmology in [place], [place] [address] [place] [address] Andi Ortez 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) Social History Tobacco Use Types Packs/Day Years Used Date Smoking Tobacco: Every Day Cigarettes Smokeless Tobacco: Never [facility] Utilize Healthities Answer Date Recorded In the past 12 [...] PM CDT Legal Sex Male 4:05 PM REGULATORY AFFAIRS INTERN Gender Identity Male 07/25/2023 8:23 PM CDT Sexual Orientation Straight 07/25/2023 8: 23 PM CDT documented as of this encounter Plan of Treatment Upcoming Encounters Date Type Department Care Team (Latest Contact Info) Description 02/26/2024 1:00 PM REGULATORY AFFAIRS INTERN Ancillary Procedure Department of Ophthalmology in [place], [place] [address] [place] [address] Suri Izquierdo M.D. [address] [place] [phone] 02/26/2024 1:30 PM REGULATORY AFFAIRS INTERN Ancillary Procedure Department of Ophthalmology in [place], [place] [address] [place] [address] 02/26/2024 2:00 PM REGULATORY AFFAIRS INTERN Ancillary Procedure Department of Ophthalmology in [place], [place] [address] [place] [phone] Suri Izquierdo M.D. [address] [place] [phone] 02/26/2024 2:15 PM REGULATORY AFFAIRS INTERN Ancillary Procedure Department of Ophthalmology in [place], [place] [address] [place] [address] Suri Izquierdo M.D. [address] [place] [address] 03/21/2024 12:20 PM REGULATORY AFFAIRS INTERN Appointment Outpatient Procedure Center in [address] [address] Suri Izquierdo M.D. [address] [place] [address] Scheduled Orders Name Type Priority Associated Diagnoses [...]
--- OUTSIDE RECORDS SUMMARY | 2024-01-31 10:11 | XMS_ITS | Clinical Summary ---
Author Organization [facility] Address [address] [place] [address] Care Team Providers Care Sheet Pile Hammer Operator Name Role Phone Unavailable Primary Care Provider Unavailabl e Source Comments Patient records contain information from all sites at [facility]. For routine questions regarding patient records, call [phone] during business hours, M-F 8:00 AM - 5:00 PM Central Time. Record requests for emergency care only can be directed to [phone] at any time.[facility] Allergies Active Allergy Reactions Criticality Noted Date Comments Codeine GI intolerance Medium 07/04/2006 rash doesn't ??tolerate Hydrocodone-Acetaminop hen Hallucinations 10/18/2011 Mold Other (see comments) 09/03/2014 Breathing Morphine GI intolerance 10/16/2011 ineffective for pain control Oxycodone Hallucinations High 02/13/2022 Penicillins Rash Medium 07/04/2006 Medications traMADoL (ULTRAM) 50 mg tablet Take 50 mg by mouth daily. 4 Active acetaminophen (TYLENOL) 325 mg tablet Take 650 mg by mouth every 6 (six) hours. 2 Active acetic acid 0.25 % irrigation (sterile) Apply 1 Application topically daily. 3 Active albuterol 90 mcg/actuation inhaler Inhale 2 puffs every 4 (four) hours as needed. 3 Active ammonium lactate (LAC-HYDRIN) 12 % lotion Apply 1 Application topically daily. Active Eliquis 5 mg tablet Take 5 mg by mouth 2 (two) times a day. Active aspirin 81 mg chewable tablet Chew 81 mg daily. Active atorvastatin (LIPITOR) 40 mg tablet Take 40 mg by mouth at bedtime. Active Trelegy Ellipta 100-62.5-25 mcg inhaler 1 puff daily. Acti ve furosemide (LASIX) 20 mg tablet Take 20 mg by mouth 2 (two) times a day. Active atropine (Isopto Atropine) 1 % ophthalmic solution Administer 1 drop into the left eye 2 (two) times a day. 2 mL 12 4 Active dorzolamide (Trusopt) 2 % ophthalmic solution Administer 1 drop into the left eye 2 (two) times a day. 10 mL 12 4 Active latanoprost (Xalatan) 0.005 % ophthalmic solution Administer 1 drop into both eyes at bedtime. 5 mL 3 4 Active prednisoLONE acetate (Pred Forte) 1 % ophthalmic suspension Administer 1 drop into the left eye 3 (three) times a day. 5 mL 4 Active dilTIAZem (Dilacor XR) 180 mg ER capsule Take 1 capsule by mouth daily. 4 Active Klor-Con M20 20 mEq ER tablet Take by mouth 2 (two) times a day with meals. 4 Active mirtazapine (Remeron) 7.5 mg tablet Take 7.5 mg by mouth at bedtime. 4 Active magnesium oxide 400 mg magnesium capsule Take 400 mg by mouth. 3 Active gabapentin (Neurontin) 100 mg capsule Take 1 capsule (100 mg total) by mouth 3 (three) times a day. 270 capsule 4 Active brimonidine (Alphagan) 0.2 % ophthalmic solution ADMINISTER 1 DROP INTO THE LEFT EYE 3 TIMES A DAY. 5 mL 3 4 Active brimonidine (Alphagan) 0.2 % ophthalmic solution Administer 1 drop into the left eye 3 (three) times a day. 5 mL 3 4 01/17/20 24 Discontin ued([facility]) Hospital, Clinic, or Other Facility Administered Medication [...] Encounters Date Type Department Care Team Description 01/29/2024 Clinical Communication Department of Ophthalmology in [place], [place] [address] [place] [address] Doc Ferris M.D. 01/24/2024 7:59 AM CDT - 01/24/2024 11:59 PM CDT Hospital Encounter Outpatient Procedure Center in [address] [phone] Suri Izquierdo M.D. Glaucoma Neovascular Discharge Disposition: Home or Self Care 01/16/2024 Refill Department of Ophthalmology in [place], [place] [address] [place] [phone] Suri Izquierdo M.D. Med Refill 01/11/2024 9:45 AM CDT Office Visit Department of Ophthalmology in [place], [place] [address] [place] [phone] Doc Ferris M.D. 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 12/27/2023 1:01 PM CDT - 12/27/2023 11:59 PM CDT Hospital Encounter Outpatient Procedure Center in [address] [phone] Suri Izquierdo M.D. Glaucoma Neovascular Discharge Disposition: Home or Self Care 12/19/2023 10:00 AM CDT Comprehensive Visit Department of Neurology in [address] [address] Jojo Barrientos M.D. Occlusion Carotid Artery Left; Ischemia Retina; Glaucoma Neovascular; Neuropathy Optic Ischemic Bilateral 2023 12:15 PM CDT Clinical Communication Virtual Review in [place], [place] [address] [place] [address] Pre-visit Intake 12/13/2023 10:00 AM CDT Procedure visit Department of Ophthalmology in [place], [place] [address] [place] [phone] Wero Gasca M.D. 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 12/07/2023 Clinical Communication Department of Ophthalmology in [place], [place] [address] [place] [address] JovannyCarl 12/07/2023 Documentation Department of Ophthalmology in [place], [place] [address] [place] [phone] Suri Izquierdo M.D. 11/30/2023 1:30 PM CDT Office Visit Department of Ophthalmology in [place], [place] [address] [place] [address] Suri Izquierdo M.D. 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 Hemorrhage Vitreous Left (HCC) 11/30/2023 12:05 AM CDT Ancillary Procedure Department of Ophthalmology 11/30/2023 Ancillary Procedure Department of Ophthalmology 11/22/2023 9:02 AM CDT - 11/22/2023 11:59 PM CDT Hospital Encounter Outpatient Procedure Center in [address] [phone] Suri Izquierdo M.D. Glaucoma Neovascular Discharge Disposition: Home or Self Care 11/09/2023 12:00 PM CDT Office Visit Department of Ophthalmology in [place], [place] [address] [place] [phone] Suri Izquierdo M.D. Hemorrhage Vitreous Left (HCC) (Primary Dx); Glaucoma Neovascular; Occlusion Carotid Artery Left 11/02/2023 12:45 PM CDT Office Visit Department of Ophthalmology in [place], [place] [address] [place] [address] Suri Izquierdo M.D. 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 [address] [place] [phone] 02/26/2024 1:30 PM ASBESTOS WORKER Ancillary Procedure Department of Ophthalmology in [place], [place] [address] [place] [phone] 02/26/2024 2:00 PM ASBESTOS WORKER Ancillary Procedure Department of Ophthalmology in [place], [place] [address] [place] [phone] Suri Izquierdo M.D. [address] [place] [phone] 02/26/2024 2:15 PM ASBESTOS WORKER Ancillary Procedure Department of Ophthalmology in [place], [place] [address] [place] [phone] Suri Izquierdo M.D. [address] [place] [phone] 03/21/2024 12:20 PM ASBESTOS WORKER Appointment Outpatient Procedure Center in [address] [phone] Suri Izquierdo M.D. [address] [place] [phone] Health Maintenance Due Date Last Done Comments Hepatitis C Screening 1945 Tobacco Cessation counseling 1945 Zoster Vaccines (1 of 2) 12/15/1995 DTaP,Tdap,and Td Vaccines (3 - Td or Tdap) 03/16/2018 03/16/2008, 07/04/2006 RSV vaccine - (32-3 6 weeks) or 60+ years (1 - 1-dose 75+ series) 2020 Depression Screening (Annual PHQ-2) 04/09/2023 COVID-19 Vaccine (7 2023-2 5 season) 2023 01/17/2023, 01/10/2022, 08/23/2021, Additional history [...] 07/30/2018, 01/11/2016 Fall Risk Screen (Annual) Completed 01/24/2024 Medical Devices Implanted Type Area Foreign Exchange Trader Device Identifier Shelf Expiration Date Model / Serial / Lot J J Sig Patella Oval 41 - Briones [id number] Implanted:Qty: 1 on 10/23/2011 Knee Implant Other/Legacy - See Implant Description [employer] Description:Device Manufactu rer - [employer]. Body Location - Other. Left. Device Status Text - [id number] [id number]. Depuy-Insert Stabilized Sz 5 12.5mm - Briones [id number] Implanted:Qty: 1 on 10/23/2011 Knee Implant Other/Legacy - See Implant Description [employer] Description:Device Manufactu rer - [employer] J [employer]. Body Location - Other. Left. Device Status Text - KNEE [id number]. Depuy-Tib Tray Mod Cement Cocr Sz5 - Briones [id number] Implanted:Qty: 1 on 10/23/2011 Knee Implant Other/Legacy - See Implant Description [employer] Description:Device Manufactu rer - [employer] J [employer]. Body Location - Other. Left. Device Status Text - KNEE [id number]. Sigma Post Stab.W Lug Fem Sz 6 Lt - Briones [id number] Implanted:Qty: 1 on 10/23/2011 Knee Implant Other/Legacy - See Implant Description [employer] Description:Device Manufactu rer - [employer]. Body Location - Other. Left. Device Status Text - KNEE [id number]. Cement Bone Large - Briones [id number] Implanted:Qty: 2 on 10/23/2011 Misc Other Orestes Description:Device Manufactu rer - Orestes Amarilis.. Device Status Text - [id number]. Procedures Procedure Name Priority Date/Time Associated Diagnosis Comments INTRAVITREAL INJECTION, PHARMACOLOGIC AGENT - OS - LEFT EYE Routine 01/24/2024 8:46 AM CDT Glaucoma Neovascular INTRAVITREAL INJECTION, PHARMACOLOGIC [...] Routine 11/22/2023 9:38 AM CDT Glaucoma Neovascular CREATININE WITH EGFR, S/P Routine 07/30/2023 8:13 AM CDT Loss Visual ELPN WITH CREATININE Yousuf MUSA Routine 10/26/2011 4:13 AM CDT from Last 3 Months or Most Recently Relevant to Health Maintenance Results * Intravitreal Injection, Pharmacologic Agent - OS - Left Eye (01/24/2024 8:46 AM CDT) Narrative Buzz Carlos M.D. - 01/24/2024 8:50 AM CDT Pre-Procedure Verification Pre-procedure verification conducted to verify correct patient identity, procedure to be performed and, as applicable, correct side and site. Patient consent obtained. Time Out Confirmed correct patient, procedure, site, and patient consented. Anesthesia Topical anesthesia was used. Pre/Post Procedure prep and meds used were Celluvisc 1-10 drops, Lidocaine 2% with Epinephrine (subconj inj), Povidone 5% 1-10 drops, Povidone 10% swabs x 3 to lids and lashes, Proparacaine 0.5% 1-10 drops, Tetracaine 0.5% 1-10 drops. Procedure Details Injection: 1.25 mg bevacizumab 25 mg/mL ??Route: intravitreal, Site: Left Eye ??[facility]: 52498-613-37, Lot: [id number], Expiration date: 04/07/2024 Balanced salt solution irrigation to injected eye after the injection was Done. Hand motion was not present. Count fingers was not correct. 15.0. IOP was done by Tonopen/Accupen. Reviewed instructions and patient verbalizes understanding. Ancillary Staff Ancillary Staff: Thomas Lee RN, Luann Velasco RN. Notes Patient oriented to outpatient procedure [...] or count fingers. Avastin, LEFT eye. [facility] 65124-533-98 LOT [id number] EXP +subconj LIDO - helped greatly - no pain. No complications. Nicholas Carlos MD us Suri Izquierdo M.D. [facility] PROCEDURE S Final Result * Intravitreal Injection, Pharmacologic Agent - OS [...] patient verbalizes understanding. Ancillary Staff Ancillary Staff: ELMRE Kong. Notes Patient oriented to outpatient procedure [...] or count fingers. Avastin, LEFT eye. [facility] 11445-955-17 LOT [id number] EXP 01/19/2024 [place] pain with injection after multiple numbing drops and Q-tips. Would recommend subconj lido/epi No complications. Nicholas Carlos MD us Suri Izquierdo M.D. [facility] PROCEDURE S Edited Result - Final * Anderson Retinal Photocoagulation - OS - [...] written and verbal post procedure care education. us Wero Hall M.D. [facility] PROCEDURE S Final Result Performing Organization Address [facility]/ZIP Co de Phone Number [facility] NON-IMAG[facility] * B-Scan Ultrasound - OS - Left Eye (11/30/2023 2:12 PM CDT) Narrative [facility] NON-IMAGING ORDERS - 12/03/2023 3:25 PM CDT 11/30/2023 B-scan Left Eye: Moderate to dense vitreous opacities mostly inferiorly, likely retinal detachment nasally from approximately 130E - 430E with possible break visualized on L430. Retina appears otherwise attached, no mass noted. us Suri Izquierdo M.D. [facility] ULTRASOUND Final Result Performing Organization Address [facility]/ZIP Co de Phone Number [facility] NON-IMAGING ORDERS * Eyes US-Eye [id number] Image Exam (11/30/2023 12:05 AM CDT) Only the most recent of2 resultswithin the time period is included. Narrative [facility] - 11/30/2023 2:12 PM CDT This order has been created and auto-finalized to support the import of images acquired without order. The clinical documentation to support these images can be found on the encounter that produced images. us Provider Not In System IMG NON RAD IMAGING ANUPAMA HOBSON Final Result [facility] NA * Intravitreal Injection, Pharmacologic Agent [...] Left Eye ??[facility]: 86809-953-42 Balanced salt solution irrigation to injected eye [...] or count fingers. Avastin, LEFT eye. [facility] 50662-921-69 LOT [id number] EXP 01/06/2024 First injection in [place]. ??Poor visual potential. ??Neovascular glaucoma and high intraocular pressure. ??Would consider cyclophotocoagulation as patient is having daily headaches likely related to uncontrolled intraocular pressure on maximal medical treatment. ?? No injection complications. Nicholas Carlos MD Suri Izquierdo M.D. [facility] PROCEDURE S Final Result * Creatinine with Estimated GFR (07/30/2023 8:13 AM CDT) Creatinine 1.15 0.74 - 1.35 mg/dL 07/30/2023 9:14 AM CDT DTL Estimated GFR (eGFR) 66 >=60 mL/min/BSA 07/30/2023 9:14 AM CDT DTL Comment: Estimated GFR calculated using the 2020 CKD_EPI creatinine equation. Blood (Blood, Venous) 07/30/2023 8:13 AM CDT 07/30/2023 8:52 AM CDT Red Gallego M.D. LAB BLOOD ADD-ON Final Re sult [facility] [address] [place] [address], [facility] DTFormerly [facility] [address] [place] [address] * (ABNORMAL) Electrolyte Panel with Creatinine Olvin (10/26/2011 4:13 AM CDT) BUN (Blood Urea Nitrogen), S 8 8 - 24 MG/DL [facility] Sodium, P 135 135 - 145 MMOL/L [facility] HX Bicarbonate, P/S 32(H) 22 - 29 MMOL/L [facility] Potassium, P 4.5 3.6 - 5.2 MMOL/L [facility] Chloride, S 98(L) 100 - 108 MMOL/L [facility] Creatinine, Olvin 0.8(L) 0.9 - 1.4 MG/DL [facility] Glucose, S 117 70 - 140 MG/DL [facility] 10/26/2011 4:13 AM CDT 10/26/2011 4:13 AM CDT Allison Redmond P.A.-C., P.A. LAB BLOOD ADD-ON Fi nal Result [facility] [address] [place] [phone], [facility] from Last 3 Months or Most Recently Relevant to Health Maintenance Insurance MEDICARE [facility]
--- OUTSIDE RECORDS SUMMARY | 2024-01-31 10:11 | XMS_ITS | Encounter Summary ---
Author Organization [facility] Address [address] [place] [phone] Care Team Providers Care Fancy Needleworker Name Role Phone Unavailable Primary Care Provider Unavailabl e Reason for Visit * Reason Comments Retina Follow Up * Outpatient (Routine) - Closed Specialty Diagnoses / Procedures Referred By Janeth phillips Referred To Contact Ophthalmology Wero Gasca M.D. [address] [place] [phone] Phone: tel: fax: Doc Ferris M.D. [address] [place] [phone] Phone: tel: fax: Referral ID Status Reason Start Date Expiration Date Visits Re quested Visits Authorized [id number] Closed 12/13/2023 06/13/2025 1 1 Encounter Details Date Type Department Care Team (Latest Contact Info) Description 01/11/2024 9:45 AM CDT Office Visit Department of Ophthalmology in [place], [place] [address] [place] [phone] Doc Ferris M.D. 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 Followup: 8-weeks after last injection-- no testing Injection Location: [place] Hold injection slot in [place]? Left eye documented in this encounter Plan of Treatment Upcoming Encounters Date Type Department Care Team (Latest Contact Info) Description 02/26/2024 1:00 PM MODERN GREEK STUDIES PROFESSOR Ancillary Procedure Department of Ophthalmology in [place], [place] [address] [place] [address] Suri Izquierdo M.D. [address] [place] [phone] 02/26/2024 1:30 PM MODERN GREEK STUDIES PROFESSOR Ancillary Procedure Department of Ophthalmology in [place], [place] [address] [place] [address] 02/26/2024 2:00 PM MODERN GREEK STUDIES PROFESSOR Ancillary Procedure Department of Ophthalmology in [place], [place] [address] [place] [address] Suri Izquierdo M.D. [address] [place] [address] 02/26/2024 2:15 PM MODERN GREEK STUDIES PROFESSOR Ancillary Procedure Department of Ophthalmology in [place], [place] [address] [place] [address] Suri Izquierdo M.D. [address] [place] [address] 03/21/2024 12:20 PM MODERN GREEK STUDIES PROFESSOR Appointment Outpatient Procedure Center in [address] [phone] Suri Izquierdo M.D. 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
--- OUTSIDE RECORDS SUMMARY | 2024-01-31 10:11 | XMS_ITS | Encounter Summary ---
Author Organization [facility] Address [address] [place] [address] Care Team Providers Care Bus Or Truck Garage Mechanic Name Role Phone Unavailable Primary Care Provider Unavailabl e Encounter Details Date Type Department Care Team (Latest Contact Info) Description 12/07/2023 Clinical Communication Department of Ophthalmology in [place], [place] [address] [place] [address] Suri Izquierdo M.D. [address] [place] [address] Social History Tobacco Use Types Packs/Day Years [...] your living situation today? I have a [facility] place to live 07/25/2023 Sex and Gender Information Value Date Recorded Sex Assigned at Male 07/25/2023 8:23 PM CDT Legal Sex Male 4:05 PM TACK PICKER Gender Identity Male 07/25/2023 8:23 PM CDT Sexual Orientation Straight 07/25/2023 8: 23 PM CDT documented as of this encounter Plan of Treatment Upcoming Encounters Date Type Department Care Team (Latest Contact Info) Description 02/26/2024 1:00 PM TACK PICKER Ancillary Procedure Department of Ophthalmology in [place], [place] [address] [place] [address] Suri Izquierdo M.D. [address] [place] [address] 02/26/2024 1:30 PM TACK PICKER Ancillary Procedure Department of Ophthalmology in [place], [place] [address] [place] [address] 02/26/2024 2:00 PM TACK PICKER Ancillary Procedure Department of Ophthalmology in [place], [place] [address] [place] [address] Suri Izquierdo M.D. [address] [place] [phone] 02/26/2024 2:15 PM TACK PICKER Ancillary Procedure Department of Ophthalmology in [place], [place] [address] [place] [address] Suri Izquierdo M.D. [address] [place] [address] 03/21/2024 12:20 PM TACK PICKER Appointment Outpatient Procedure Center in [address] [phone] Suri Izquierdo M.D. [address] [place] [address] documented as of this encounter Visit Diagnoses Not on filedocumented in this encounter
--- OUTSIDE RECORDS SUMMARY | 2024-01-31 10:11 | XMS_ITS | Encounter Summary ---
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 [address] [place] [phone] Phone: tel: fax: [facility] Referral ID Status Reason Start Date Expiration Date Visits Re quested Visits Authorized [id number] Closed 12/07/2023 12/06/2024 1 1 Encounter Details Date Type Department Care Team (Late st Contact Info) Description 12/07/2023 Documentation Department of Ophthalmology in [place], [place] [address] [place] [phone] Suri Izquierdo M.D. [address] [place] [phone] Social History Tobacco Use Types Packs/Day Years [...] PM CDT Legal Sex Male 4:05 PM DIE HOLDER Gender Identity Male 07/25/2023 8:23 PM CDT Sexual Orientation Straight 07/25/2023 8: 23 PM CDT documented as of this encounter Progress Notes * uSri Izquierdo M.D. - 12/07/2023 3:04 PM CDT [...] with endolaser would be an even longer procedure), we believe that the risk of undergoing [...] the next week. Discussed with front end manager, who will schedule this. Discussed with Dr. Ferris. documented in this encounter Plan of Treatment Upcoming Encounters Date Type Department Care Team (Latest Contact Info) Description 02/26/2024 1:00 PM DIE HOLDER Ancillary Procedure Department of Ophthalmology in [place], [place] [address] [place] [phone] Suri Izquierdo M.D. [address] [place] [phone] 02/26/2024 1:30 PM DIE HOLDER Ancillary Procedure Department of Ophthalmology in [place], [place] [address] [place] [phone] 02/26/2024 2:00 PM DIE HOLDER Ancillary Procedure Department of Ophthalmology in [place], [place] [address] [place] [phone] Suri Izquierdo M.D. [address] [place] [phone] 02/26/2024 2:15 PM DIE HOLDER Ancillary Procedure Department of Ophthalmology in [place], [place] [address] [place] [phone] Suri Izquierdo M.D. [address] [place] [phone] 03/21/2024 12:20 PM DIE HOLDER Appointment Outpatient Procedure Center in [address] [address] Suri Izquierdo M.D. 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
--- OUTSIDE RECORDS SUMMARY | 2024-01-31 10:11 | XMS_ITS | Encounter Summary ---
Author Organization [facility] Address [address] [place] [address] Care Team Providers Care Director Mobile Name Role Phone Unavailable Primary Care Provider Unavailabl e Reason for Referral * Outpatient (Routine) - Authorized Specialty Diagnoses / Procedures Referred By Janeth phillips Referred To Contact Diagnoses Glaucoma Neovascular Procedures Intravitreal Injection, Pharmacologic Agent - OS - Left Eye Suri Izquierdo M.D. [address] [place] [address] Phone: tel: fax: [facility] Region Referral ID Status Reason Start Date Expiration Date V isits Requested Visits Authorized [id number] Authorized 10/19/2023 10/18/2024 5 5 Reason for Visit * Outpatient (Routine) - Authorized Specialty Diagnoses / Procedures Referred By Janeth phillips Referred To Contact Diagnoses Glaucoma Neovascular Procedures Intravitreal Injection, Pharmacologic Agent - OS - Left Eye Suri Izquierdo M.D. 200 [place] [address] Phone: tel: [facility] Region Referral ID Status Reason Start Date Expiration Date V isits Requested Visits Authorized [id number] Authorized 10/19/2023 10/18/2024 5 5 Encounter Details Date Type Department Care Team (Latest Contact Info) Description 01/24/2024 7:59 AM CDT - 01/24/2024 11:59 PM CDT Hospital Encounter Outpatient Procedure Center in [address] [phone] Suri Izquierdo M.D. [address] [place] [address] Glaucoma Neovascular Discharge Disposition: Home or Self Care Social History Tobacco Use Types Packs/Day Years Used Date Smoking Tobacco: Every Day Cigarettes Smokeless Tobacco: Never [facility] Utilities Answer Date Recorded In [...] your living situation today? I have a [facility] place to live 07/25/2023 Sex and Gender Information Value Date Recorded Sex Assigned at Male 07/25/2023 8:23 PM CDT Legal Sex Male 4:05 PM GROUP THERAPY COUNSELOR Gender Identity Male 07/25/2023 8:23 PM CDT [...] 10/19/2023 brimonidine (Alphagan) 0.2 % ophthalmic solution ADMINISTER 1 DROP INTO THE LEFT EYE 3 TIMES A DAY. 5 mL 3 01/17/2024 dilTIAZem (Dilacor XR) 180 mg ER capsule [...] (Latest Contact Info) Description 02/26/2024 1:00 PM GROUP THERAPY COUNSELOR Ancillary Procedure Department of Ophthalmology in [place], [place] [address] [place] [phone] Suri Izquierdo M.D. [address] [place] [phone] 02/26/2024 1:30 PM GROUP THERAPY COUNSELOR Ancillary Procedure Department of Ophthalmology in [place], [place] [address] [place] [phone] 02/26/2024 2:00 PM GROUP THERAPY COUNSELOR Ancillary Procedure Department of Ophthalmology in [place], [place] [address] [place] [phone] Suri Izquierdo M.D. [address] [place] [phone] 02/26/2024 2:15 PM GROUP THERAPY COUNSELOR Ancillary Procedure Department of Ophthalmology in [place], [place] [address] [place] [phone] Suri Izquierdo M.D. [address] [place] [phone] 03/21/2024 12:20 PM GROUP THERAPY COUNSELOR Appointment Outpatient Procedure Center in [address] [phone] Suri Izquierdo M.D. [address] [place] [phone] documented as of this encounter Procedures Procedure Name Priority Date/Time Associated Diagnosis Comments INTRAVITREAL INJECTION, PHARMACOLOGIC AGENT - OS - LEFT EYE Routine 01/24/2024 8:46 AM CDT Glaucoma Neovascular documented in this [...] 25 mg/mL ??Route: intravitreal, Site: Left Eye ??[facility]: 99977-776-47, Lot: [id number], Expiration date: 04/07/2024 Balanced salt solution irrigation [...] motion or count fingers. Avastin, LEFT eye. [facility] 39608-224-16 [id number] EXP +subconj LIDO - helped greatly - no pain. No complications. Nicholas Carlos MD us Suri Izquierdo M.D. OPHTH CLINIC PROCEDURE S Final Result documented in this encounter Visit Diagnoses Diagnosis Glaucoma Neovascular documented in this encounter Administered Medications Inactive Administered Medications - up to 3 most recent administrations Medication Order MAR Action Action Date Dose Rate Site bevacizumab intraocular injection 1.25 mg (Avastin) 1.25 mg, intravitreal, One-Time Injection, Starting on Yun 01/24/24 at 0850, For 1 doseIndications:Glaucoma Neovascular Given 01/24/2024 8:50 AM CDT 1.25 mg Left Eye documented in this encounter
--- OUTSIDE RECORDS SUMMARY | 2024-01-31 10:11 | XMS_ITS | Encounter Summary ---
Author Organization 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 200 [place] [address] Phone: tel: fax: [facility] Referral ID Status Reason Start Date Expiration Date Visits Re quested Visits Authorized [id number] Closed 10/23/2023 04/23/2025 1 1 Encounter Details Date Type Department Care Team (Latest Contact Info) Description 12/19/2023 10:00 AM CDT Comprehensive Visit Department of Neurology in [place], [place] [address] [place] [phone] Jojo Barrientos M.D. [address] [place] [phone] Occlusion Carotid Artery Left; Ischemia Retina; Glaucoma Neovascular; Neuropathy Optic Ischemic Bilateral Social History Tobacco Use Types Packs/Day Years Used Date Smoking Tobacco: Every Day Cigarettes Smokeless Tobacco: Never [facility] Utilities Answer Date Recorded [...] PM CDT Legal Sex Male 4:05 PM MEDICAL LOGISTICS SPECIALIST Gender Identity Male 07/25/2023 8:23 PM CDT [...] (Latest Contact Info) Description 02/26/2024 1:00 PM MEDICAL LOGISTICS SPECIALIST Ancillary Procedure Department of Ophthalmology in [place], [place] [address] [place] [phone] Suri Izquierdo M.D. [address] [place] [phone] 02/26/2024 1:30 PM MEDICAL LOGISTICS SPECIALIST Ancillary Procedure Department of Ophthalmology in [place], [place] [address] [place] [phone] 02/26/2024 2:00 PM MEDICAL LOGISTICS SPECIALIST Ancillary Procedure Department of Ophthalmology in [place], [place] [address] [place] [phone] Suri Izquierdo M.D. [address] [place] [phone] 02/26/2024 2:15 PM MEDICAL LOGISTICS SPECIALIST Ancillary Procedure Department of Ophthalmology in [place], [place] [address] [place] [phone] Suri Izquierdo M.D. [address] [place] [phone] 03/21/2024 12:20 PM MEDICAL LOGISTICS SPECIALIST Appointment Outpatient Procedure Center in [address] [phone] Suri Izquierdo M.D. 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
--- OUTSIDE RECORDS SUMMARY | 2024-01-31 10:11 | XMS_ITS | Encounter Summary ---
Author Organization [facility] Address [address] [place] [address] Care Team Providers Care Public Policy Analyst Name Role Phone Unavailable Primary Care Provider Unavailabl e Encounter Details Date Type Department Care Team (Latest Contact Info) Description 12/07/2023 Clinical Communication Department of Ophthalmology in [place], [place] [address] [place] [address] Carl Petty Social History Tobacco Use Types [...] your living situation today? I have a [facility] place to live 07/25/2023 Sex and Gender Information Value Date Recorded Sex Assigned at Male 07/25/2023 8:23 PM CDT Legal Sex Male 4:05 PM AUTOMOBILE MECHANIC Gender Identity Male 07/25/2023 8:23 PM CDT Sexual Orientation Straight 07/25/2023 8: 23 PM CDT documented as of this encounter Plan of Treatment Upcoming Encounters Date Type Department Care Team (Latest Contact Info) Description 02/26/2024 1:00 PM AUTOMOBILE MECHANIC Ancillary Procedure Department of Ophthalmology in [place], [place] [address] [place] [address] Suri Izquierdo M.D. [address] [place] [address] 02/26/2024 1:30 PM AUTOMOBILE MECHANIC Ancillary Procedure Department of Ophthalmology in [place], [place] [address] [place] [address] 02/26/2024 2:00 PM AUTOMOBILE MECHANIC Ancillary Procedure Department of Ophthalmology in [place], [place] [address] [place] [address] Suri Izquierdo M.D. [address] [place] [phone] 02/26/2024 2:15 PM AUTOMOBILE MECHANIC Ancillary Procedure Department of Ophthalmology in [place], [place] [address] [place] [address] Srui Izquierdo M.D. [address] [place] [address] 03/21/2024 12:20 PM AUTOMOBILE MECHANIC Appointment Outpatient Procedure Center in [address] [phone] Suri Izquierdo M.D. [address] [place] [phone] documented as of this encounter Visit Diagnoses Not on filedocumented in this encounter
--- OUTSIDE RECORDS SUMMARY | 2024-01-31 10:11 | XMS_ITS | Encounter Summary ---
Author Organization [facility] Address [address] [place] [address] Care Team Providers Care Conveyor Loader Name Role Phone Unavailable Primary Care Provider Unavailabl e Reason for Referral * Outpatient (Routine) - Closed Specialty Diagnoses / Procedures Referred By Janeth t Referred To Contact Procedures Tamayo Retinal Photocoagulation - OS - Left Eye Wero Gasca M.D. 200 [place] [address] Phone: tel: fax: [facility] Referral ID Status Reason Start Date Expiration Date Visits Re quested Visits Authorized [id number] Closed 12/13/2023 12/12/2024 1 1 * Outpatient (Routine) - Closed Specialty Diagnoses / Procedures Referred By aJneth phillips Referred To Contact Ophthalmology Wero Gasca M.D. [address] [place] [phone] Phone: tel: fax: Doc Ferris M.D. [address] [place] [phone] Phone: tel: fax: Referral ID Status Reason Start Date Expiration Date Visits Re quested Visits Authorized [id number] Closed 12/13/2023 06/13/2025 1 1 Reason for Visit * Reason Comments Procedure * Outpatient (Routine) - Closed Specialty Diagnoses / Procedures Referred By Janeth t Referred To Contact Diagnoses Retinal Detachment With Single Break Left Eye Glaucoma Neovascular Procedures Focal Laser - OS - Left Eye Suri Izquierdo M.D. [address] [place] [address] Phone: tel: fax: [facility] Referral ID Status Reason Start Date Expiration Date Visits Re quested Visits Authorized [id number] Closed 12/07/2023 12/06/2024 1 1 Encounter Details Date Type Department Care Team (Latest Contact Info) Description 12/13/2023 10:00 AM CDT Procedure visit Department of Ophthalmology in [place], [place] [address] [place] [phone] Wero Gasca M.D. [address] [place] [phone] Retinal Detachment With Single Break Left Eye; [...] your living situation today? I have a [facility] place to live 07/25/2023 Sex and Gender Information Value Date Recorded Sex Assigned at Male 07/25/2023 8:23 PM CDT Legal Sex Male 4:05 PM PHOTOGRAPHIC COLORIST Gender Identity Male 07/25/2023 8:23 PM CDT [...] last injection with OCT macula. Injection Location: [place] Hold injection slot in [place]? Left eye documented in this encounter Plan of Treatment Upcoming Encounters Date Type Department Care Team (Latest Contact Info) Description 02/26/2024 1:00 PM PHOTOGRAPHIC COLORIST Ancillary Procedure Department of Ophthalmology in [place], [place] [address] [place] [phone] Suri Izquierdo M.D. [address] [place] [phone] 02/26/2024 1:30 PM PHOTOGRAPHIC COLORIST Ancillary Procedure Department of Ophthalmology in [place], [place] [address] [place] [phone] 02/26/2024 2:00 PM PHOTOGRAPHIC COLORIST Ancillary Procedure Department of Ophthalmology in [place], [place] [address] [place] [phone] Suri Izquierdo M.D. [address] [place] [phone] 02/26/2024 2:15 PM PHOTOGRAPHIC COLORIST Ancillary Procedure Department of Ophthalmology in [place], [place] [address] [place] [phone] Suri Izquierdo M.D. [address] [place] [phone] 03/21/2024 12:20 PM PHOTOGRAPHIC COLORIST Appointment Outpatient Procedure Center in [address] [phone] Suri Izquierdo M.D. [address] [place] [phone] Scheduled Referrals Name Type Priority Associated Diagnoses [...] procedure care education. us Wero Hall M.D. 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
--- OUTSIDE RECORDS SUMMARY | 2024-01-31 10:11 | XMS_ITS | Encounter Summary ---
Author Organization [facility] Address [address] [place] [address] Care Team Providers Care Appliance Service Technician Name Role Phone Unavailable Primary Care Provider Unavailabl e Encounter Details Date Type Department Care Team (Latest Contact Info) Description 01/29/2024 Clinical Communication Department of Ophthalmology in [place], [place] [address] [place] [address] Doc Ferris M.D. [address] [place] [address] Social History Tobacco Use Types Packs/Day Years Used Date Smoking Tobacco: Every Day Cigarettes Smokeless Tobacco: Never [facility] Utilities Answer Date Recorded In [...] PM CDT Legal Sex Male 4:05 PM SLIP LASTER Gender Identity Male 07/25/2023 8:23 PM CDT Sexual Orientation Straight 07/25/2023 8: 23 PM CDT documented as of this encounter Miscellaneous Notes * Telephone Encounter - Alka Balderas C.S.T. - 01/29/2024 12:[address] non Gonda orders for patients injection series. Next injection in [place] on 03/21/24. Thank you documented in this encounter Plan of Treatment Upcoming Encounters Date Type Department Care Team (Latest Contact Info) Description 02/26/2024 1:00 PM SLIP LASTER Ancillary Procedure Department of Ophthalmology in [place], [place] [address] [place] [address] Suri Izquierdo M.D. [address] [place] [address] 02/26/2024 1:30 PM SLIP LASTER Ancillary Procedure Department of Ophthalmology in [place], [place] [address] [place] [address] 02/26/2024 2:00 PM SLIP LASTER Ancillary Procedure Department of Ophthalmology in [place], [place] [address] [place] [phone] Suri Izquierdo M.D. [address] [place] [phone] 02/26/2024 2:15 PM SLIP LASTER Ancillary Procedure Department of Ophthalmology in [place], [place] [address] [place] [address] Suri Izquierdo M.D. [address] [place] [phone] 03/21/2024 12:20 PM SLIP LASTER Appointment Outpatient Procedure Center in [address] [phone] Suri Izquierdo M.D. [address] [place] [phone] documented as of this encounter Visit Diagnoses Not on filedocumented in this encounter
--- OUTSIDE RECORDS SUMMARY | 2024-01-31 10:11 | XMS_ITS ---
Author Organization [facility] Address [address] [place] [address] Care Team Providers Care Regional Engagement Consultant Name Role Phone Unavailable Unavailable Unavailable Surgery Details Not on file Complications Check Surgery Details section. Procedure Estimated Blood Loss Check Surgery Details section. Procedure Findings Check Surgery Details section. Procedure Specimens Taken Check Surgery Details section.
--- OUTSIDE RECORDS SUMMARY | 2024-01-31 10:11 | XMS_ITS | Encounter Summary ---
Author Organization [facility] Address [address] [place] [address] Care Team Providers Care Adult High School Instructor Name Role Phone Unavailable Primary Care Provider Unavailabl e Reason for Visit * Reason Onset Date Comments Pre-visit Intake 2023 Encounter Details Date Type Department Care Team (Latest Contact Info) Description 2023 12:15 PM CDT Clinical Communication Virtual Review in [place], [place] [address] [place] [address] Pre-visit Intake Social History Tobacco Use Types [...] living situation today? I have a [facility] place to live 07/25/2023 Sex and Gender Information Value Date Recorded Sex Assigned at Male 07/25/2023 8:23 PM CDT Legal Sex Male 4:05 PM BEATER HEAD Gender Identity Male 07/25/2023 8:23 PM CDT Sexual Orientation Straight 07/25/2023 8: 23 PM CDT documented as of this encounter Plan of Treatment Upcoming Encounters Date Type Department Care Team (Latest Contact Info) Description 02/26/2024 1:00 PM BEATER HEAD Ancillary Procedure Department of Ophthalmology in [place], [place] [address] [place] [address] Suri Izquierdo M.D. [address] [place] [phone] 02/26/2024 1:30 PM BEATER HEAD Ancillary Procedure Department of Ophthalmology in [place], [place] [address] [place] [address] 02/26/2024 2:00 PM BEATER HEAD Ancillary Procedure Department of Ophthalmology in [place], [place] [address] [place] [address] Suri Izquierdo M.D. [address] [place] [phone] 02/26/2024 2:15 PM BEATER HEAD Ancillary Procedure Department of Ophthalmology in [place], [place] [address] [place] [address] Suri Izquierdo M.D. [address] [place] [address] [place] [phone] 03/21/2024 12:20 PM BEATER HEAD Appointment Outpatient Procedure Center in [address] [phone] Suri Izquierdo M.D. 200 [place] [phone] documented as of this encounter Visit Diagnoses Not on filedocumented in this encounter
--- OUTSIDE RECORDS SUMMARY | 2024-01-31 10:11 | XMS_ITS | Referral Summary ---
Author Organization [facility] Address [address] [place] [address] Care Team Providers Care Alcoholic Counselor Name Role Phone Unavailable Primary Care Provider Unavailabl e Source Comments Patient records contain information from all sites at [facility]. For routine questions regarding patient records, call [phone] during business hours, M-F 8:00 AM - 5:00 PM Central Time. Record requests for emergency care only can be directed to [phone] at any time.[facility] Encounters Date Type Department Care Team Description 01/29/2024 Clinical Communication Department of Ophthalmology in [place], [place] [address] [place] [address] Doc Ferris M.D. 01/24/2024 7:59 AM CDT - 01/24/2024 11:59 PM CDT Hospital Encounter Outpatient Procedure Center in [address] [address] Suri Izquierdo M.D. Glaucoma Neovascular Discharge Disposition: Home or Self Care 01/16/2024 Refill Department of Ophthalmology in [place], [place] [address] [place] [address] Suri Izquierdo M.D. 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 12/27/2023 1:01 PM CDT - 12/27/2023 11:59 PM CDT Hospital Encounter Outpatient Procedure Center in [address] [address] Suri Izquierdo M.D. Glaucoma Neovascular Discharge Disposition: Home or Self Care 12/19/2023 10:00 AM CDT Comprehensive Visit Department of Neurology in [address] [address] Jojo Barrientos M.D. Occlusion Carotid Artery Left; Ischemia Retina; Glaucoma Neovascular; Neuropathy Optic Ischemic Bilateral 2023 12:15 PM CDT Clinical Communication Virtual Review in [address] [address] Pre-visit Intake 12/13/2023 10:00 AM CDT Procedure visit Department of Ophthalmology in [address] [address] Wero Gasca M.D. 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 12/07/2023 Clinical Communication Department of Ophthalmology in [address] [address] Carl Petty 12/07/2023 Documentation Department of Ophthalmology in [address] [address] Suri Izquierdo M.D. 11/30/2023 12:05 AM CDT Ancillary Procedure Department of Ophthalmology 11/30/2023 Ancillary Procedure Department of Ophthalmology 11/30/2023 1:30 PM CDT Office Visit Department of Ophthalmology in [place], [place] [address] [place] [phone] Suri Izquierdo M.D. 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 Hemorrhage Vitreous Left (HCC) 11/22/2023 9:02 AM CDT - 11/22/2023 11:59 PM CDT Hospital Encounter Outpatient Procedure Center in [address] [address] Suri Izquierdo M.D. Glaucoma Neovascular Discharge Disposition: Home or Self Care 11/09/2023 12:00 PM CDT Office Visit Department of Ophthalmology in [place], [place] [address] [place] [address] Suri Izquierdo M.D. Hemorrhage Vitreous Left (HCC) (Primary Dx); Glaucoma Neovascular; Occlusion Carotid Artery Left 11/02/2023 12:45 PM CDT Office Visit Department of Ophthalmology in [place], [place] [address] [place] [phone] Suri Izquierdo M.D. Hemorrhage Vitreous Left (HCC) (Primary Dx); Ischemia Retina; Occlusion Carotid Artery Left from Last 3 Months Allergies Active Allergy Reactions Criticality Noted Date Comments Codeine GI intolerance Medium 07/04/2006 rash doesn't ??tolerate Hydrocodone-Acetaminop hen Hallucinations 10/18/2011 Mold Other (see comments) 09/03/2014 Breathing Morphine GI intolerance 10/16/2011 ineffective for pain control Oxycodone Hallucinations High 02/13/2022 Penicillins Rash Medium 07/04/2006 Medications traMADoL (ULTRAM) 50 mg tablet Take 50 mg by mouth daily. 04/19/202 4 Active acetaminophen (TYLENOL) 325 mg tablet [...] 5 mL 3 4 01/17/20 24 Discontin ued([facility], or Other Facility Administered Medication [...] Cigarettes Smokeless Tobacco: Never [facility] Utilities [...] PM CDT Legal Sex Male 4:05 PM CASTINGS DRAFTER Gender Identity Male 07/25/2023 8:23 PM CDT [...] (Latest Contact Info) Description 02/26/2024 1:00 PM CASTINGS DRAFTER Ancillary Procedure Department of Ophthalmology in [place], [place] [address] [place] [phone] Suri Izquierdo M.D. [address] [place] [facility] [place] [phone] 02/26/2024 1:30 PM CASTINGS DRAFTER Ancillary Procedure Department of Ophthalmology in [place], [place] [address] [place] [phone] 02/26/2024 2:00 PM CASTINGS DRAFTER Ancillary Procedure Department of Ophthalmology in [place], [place] [address] [place] [phone] Suri Izquierdo M.D. [address] [facility] [place] [phone] 02/26/2024 2:15 PM CASTINGS DRAFTER Ancillary Procedure Department of Ophthalmology in [place], [place] [address] [place] [phone] Suri Izquierdo M.D. [address] [facility] [place] [phone] 03/21/2024 12:20 PM CASTINGS DRAFTER Appointment Outpatient Procedure Center in [address] [address] Suri Izquierdo M.D. [address] [place] [facility] [place] [phone] Medical Devices Implanted Type Area Call Center Recruiter Device Identifier Shelf Expiration Date Model / Serial / Lot J J Sig Patella Oval 41 - Briones [id number] Implanted:Qty: 1 on 10/23/2011 Knee Implant Other/Legacy - See Implant Description [employer] Description:Device Manufactu rer - [employer]. Body Location - Other. Left. Device Status Text - [id number] [id number]. Depuy-Insert Stabilized Sz 5 12.5mm - Briones [id number] Implanted:Qty: 1 on 10/23/2011 Knee Implant Other/Legacy - See Implant Description [employer] Description:Device Manufactu rer - [employer]. Body Location - Other. Left. Device Status Text - [id number] [id number]. Depuy-Tib Tray Mod Cement Cocr Sz5 - Briones [id number] Implanted:Qty: 1 on 10/23/2011 Knee Implant Other/Legacy - See Implant Description [employer] Description:Device Manufactu rer - [employer]. Body Location - Other. Left. Device Status Text - [id number] [id number]. Sigma Post Stab.W Lug Fem Sz 6 Lt - Briones [id number] Implanted:Qty: 1 on 10/23/2011 Knee Implant Other/Legacy - See Implant Description [employer] Description:Device Manufactu rer - [employer]. Body Location - Other. Left. Device Status Text - KNEE [id number]. Cement Bone Large - Briones [id number] Implanted:Qty: 2 on 10/23/2011 Misc Other [place] Description:Device Manufactu rer - Elwin Amarilis.. Device Status Text - [id number]. Procedures [...] mg/mL ??Route: intravitreal, Site: Left Eye ??[facility]: 17093-470-99, Lot: [id number], Expiration date: 04/07/2024 Balanced salt solution irrigation [...] or count fingers. Avastin, LEFT eye. [facility] 71937-563-73 LOT [id number] EXP +subconj LIDO - helped greatly - no pain. No complications. Nicholas Carlos MD us Suri Izquierdo M.D. OPH CLINIC PROCEDURE S Final Result * Intravitreal [...] or count fingers. Avastin, LEFT eye. [facility] 24313-570-39 LOT [id number] EXP 01/19/2024 Coalgood pain with injection after multiple numbing drops and Q-tips. Would recommend subconj lido/epi No complications. Nicholas Carlos MD Suri Izquierdo M.D. [facility] PROCEDURE S Edited Result - Final * Anderson Retinal Photocoagulation - OS - Left Eye (12/13/2023 11:26 AM CDT) Narrative [facility] - 12/13/2023 11:26 AM CDT [...] post procedure care education. Wero Hall M.D. [facility] PROCEDURE S Final Result [facility] NON[facility] * B-Scan Ultrasound - OS - Left Eye (11/30/2023 2:12 PM CDT) Narrative [facility] NON-IMAG[facility] - 12/03/2023 3:25 PM CDT 11/30/2023 B-scan Left Eye: Moderate to dense vitreous opacities mostly inferiorly, likely retinal detachment nasally from approximately 130E - 430E with possible break visualized on L430. Retina appears otherwise attached, no mass noted. Suri Izquierdo M.D. OPHTH ULTRASOUND Final Result Performing Organization Address City/[facility]/ZIP Co de Phone Number MC OPHTHALMOLGY NON-IMAGING ORDERS * Eyes US-Eye [id number]-[id number] Image Exam (11/30/2023 12:05 AM CDT) Only [...] Not In System IMG NON RAD IMAGING PROCE DURES Final Result Performing Organization Address [facility] de Phone Number IIMS NA * Intravitreal [...] mg/mL ??Route: intravitreal, Site: Left Eye ??[facility]: 85490-501-59 Balanced salt solution irrigation to injected eye [...] or count fingers. Avastin, LEFT eye. [facility] 97798-939-80 LOT [id number] EXP 01/06/2024 First injection in CF. ??Poor visual potential. ??Neovascular glaucoma and high intraocular pressure. ??Would consider cyclophotocoagulation as patient is having daily headaches likely related to uncontrolled intraocular pressure on maximal medical treatment. ?? No injection complications. Nicholas Carlos MD us Suri Izquierdo M.D. [facility] PROCEDURE S Final Result * Creatinine with [...] M.D. LAB BLOOD ADD-ON Final Re sult [facility] [address] [place] [address], [facility] [address] [place] [address] * (ABNORMAL) Electrolyte Panel with Creatinine Dimple (10/26/2011 4:13 AM CDT) BUN (Blood Urea Nitrogen), S 8 8 - 24 MG/DL [facility] Sodium, P 135 135 - 145 MMOL/L [facility] HX Bicarbonate, P/S 32(H) 22 - 29 MMOL/L [facility] Potassium, P 4.5 3.6 - 5.2 MMOL/L [facility] Chloride, S 98(L) 100 - 108 MMOL/L [facility] Creatinine, Dimple 0.8(L) 0.9 - 1.4 MG/DL [facility] Glucose, S 117 70 - 140 MG/DL [facility] 10/26/2011 4:13 AM CDT 10/26/2011 4:13 AM CDT us Allison Redmond P.A.-C., P.A. LAB BLOOD ADD-ON Fi nal Result [facility] [address] [place] [address], [facility] from Last 3 Months or Most Recently Relevant to Health Maintenance Insurance MEDICARE [facility]
--- OUTSIDE RECORDS SUMMARY | 2024-01-31 10:11 | XMS_ITS | Encounter Summary ---
Author Organization [facility] Address [address] [place] [address] Care Team Providers Care Puller Over Name Role Phone Unavailable Primary Care Provider Unavailabl e Reason for Visit * Reason Comments Med Refill Encounter Details Date Type Department Care Team ([facility] st Contact Info) Description 01/16/2024 Refill Department of Ophthalmology in [place], [place] [address] [place] [address] Suri Izquierdo M.D. [address] [place] [address] Med Refill Social History Tobacco Use Types Packs/Day Years Used Date Smoking Tobacco: Every Day Cigarettes Smokeless Tobacco: Never [facility] Utilities Answer Date Recorded In the past 12 months has [facility] electric, gas, oil, or water company [...] PM CDT Legal Sex Male 4:05 PM LAB REP Gender Identity Male 07/25/2023 8:23 PM CDT Sexual Orientation Straight 07/25/2023 8: 23 PM CDT documented as of this encounter Plan of Treatment Upcoming Encounters Date Type Department Care Team (Latest Contact Info) Description 02/26/2024 1:00 PM LAB REP Ancillary Procedure Department of Ophthalmology in [place], [place] [address] [place] [address] Suri Izquierdo M.D. [address] [place] [address] 02/26/2024 1:30 PM LAB REP Ancillary Procedure Department of Ophthalmology in [place], [place] [address] [place] [address] 02/26/2024 2:00 PM LAB REP Ancillary Procedure Department of Ophthalmology in [place], [place] [address] [place] [address] Suri Izquierdo M.D. [address] [place] [phone] 02/26/2024 2:15 PM LAB REP Ancillary Procedure Department of Ophthalmology in [place], [place] [address] [place] [address] Suri Izquierdo M.D. [address] [place] [address] 03/21/2024 12:20 PM LAB REP Appointment Outpatient Procedure Center in [address] [phone] Suri Izquierdo M.D. [address] [place] [address] documented as of this encounter Visit Diagnoses Not on filedocumented in this encounter
--- OUTSIDE RECORDS SUMMARY | 2024-01-31 10:11 | XMS_ITS | Encounter Summary ---
Author Organization [facility] Address [address] [place] [address] Care Team Providers Care Unemployment Claims Adjudicator Name Role Phone Unavailable Primary Care Provider [...] living situation today? I have a [facility] place to live 07/25/2023 Sex and Gender Information Value Date Recorded Sex Assigned at Male 07/25/2023 8:23 PM CDT Legal Sex Male 4:05 PM SURVEYOR HELPER ROD Gender Identity Male 07/25/2023 8:23 PM CDT Sexual Orientation Straight 07/25/2023 8: 23 PM CDT documented as of this encounter Plan of Treatment Upcoming Encounters Date Type Department Care Team (Latest Contact Info) Description 02/26/2024 1:00 PM SURVEYOR HELPER ROD Ancillary Procedure Department of Ophthalmology in [place], [place] [address] [place] [address] Suri Izquierdo M.D. [address] [place] [phone] 02/26/2024 1:30 PM SURVEYOR HELPER ROD Ancillary Procedure Department of Ophthalmology in [place], [place] [address] [place] [address] 02/26/2024 2:00 PM SURVEYOR HELPER ROD Ancillary Procedure Department of Ophthalmology in [place], [place] [address] [place] [address] Suri Izquierdo M.D. [address] [place] [phone] 02/26/2024 2:15 PM SURVEYOR HELPER ROD Ancillary Procedure Department of Ophthalmology in [place], [place] [address] [place] [address] Suri Izquierdo M.D. [address] [place] [phone] 03/21/2024 12:20 PM SURVEYOR HELPER ROD Appointment Outpatient Procedure Center in [address] [address] Suri Izquierdo M.D. [address] [place] [address] documented as of this encounter Procedures Procedure Name Priority Date/Time Associated Diagnosis Comments OPHTHALMOLOGY IMAGE EXAM Routine 11/30/2023 12:05 AM CDT documented in this encounter Results * Eyes US-Eye [id number]-Fhit-Qvqdyjuzofbuh Image Exam (11/30/2023 12:05 AM CDT) Narrative IIMS - 11/30/2023 2:12 PM CDT This order has been created and auto-finalized to support the import of images acquired without order. The clinical documentation to support these images can be found on the encounter that produced images. us Provider Not In System IMG NON RAD IMAGING PROCE DURES Final Result IIMS NA documented in this encounter Visit Diagnoses Not on filedocumented in this encounter
--- OUTSIDE RECORDS SUMMARY | 2024-01-31 10:12 | XMS_ITS | Encounter Summary ---
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 [address] [place] [address] 02/26/2024 1:30 PM DRILL PRESS OPERATOR FOR METAL Ancillary Procedure Department of Ophthalmology in [place], [place] [address] [place] [address] 02/26/2024 2:00 PM DRILL PRESS OPERATOR FOR METAL Ancillary Procedure Department of Ophthalmology in [place], [place] [address] [place] [address] Suri Izquierdo M.D. [address] [place] [phone] 02/26/2024 2:15 PM DRILL PRESS OPERATOR FOR METAL Ancillary Procedure Department of Ophthalmology in [place], [place] [address] [place] [address] Suri Izquierdo M.D. [address] [place] [address] 03/21/2024 12:20 PM DRILL PRESS OPERATOR FOR METAL Appointment Outpatient Procedure Center in [address] [address] Suri Izquierdo M.D. [address] [place] [address] documented as of this encounter Visit Diagnoses Not on filedocumented in this encounter
--- OUTSIDE RECORDS SUMMARY | 2024-01-31 10:12 | XMS_ITS | Encounter Summary ---
Author Organization [facility] Address [address] [place] [address] Care Team Providers Care Family Nurse Practitioner Name Role Phone Unavailable Primary Care Provider Unavailabl e Reason for Referral * Outpatient (Routine) - Authorized Specialty Diagnoses / Procedures Referred By Janeth phillips Referred To Contact Diagnoses Glaucoma Neovascular Procedures Intravitreal Injection, Pharmacologic Agent - OS - Left Eye Suri Izquierdo M.D. [address] [place] [address] Phone: tel: fax: [facility] Region Referral ID Status Reason Start Date Expiration Date V isits Requested Visits Authorized [id number] Authorized 10/19/2023 10/18/2024 5 5 Reason for Visit * Outpatient (Routine) - Authorized Specialty Diagnoses / Procedures Referred By Janeth phillips Referred To Contact Diagnoses Glaucoma Neovascular Procedures Intravitreal Injection, Pharmacologic Agent - OS - Left Eye Suri Izquierdo M.D. [address] [place] [address] Phone: tel: [facility] Region Referral ID Status Reason Start Date Expiration Date V isits Requested Visits Authorized [id number] Authorized 10/19/2023 10/18/2024 5 5 Encounter Details Date Type Department Care Team (Latest Contact Info) Description 10/23/2023 1:51 PM CDT - 10/23/2023 2:53 PM CDT Hospital Encounter Outpatient Procedure Center in [place], [place] [address] [place] [address] Suri Izquierdo M.D. [address] [place] [address] Glaucoma Neovascular Discharge Disposition: Home or Self Care Social History Tobacco Use Types Packs/Day Years Used Date Smoking Tobacco: Unknown [facility] Utilities Answer Date Recorded In the past [...] your living situation today? I have a [facility] place to live 07/25/2023 Sex and Gender Information Value Date Recorded Sex Assigned at Male 07/25/2023 8:23 PM CDT Legal Sex Male 4:05 PM CARTRIDGE GAUGER Gender Identity Male 07/25/2023 8:23 PM CDT [...] times a day. 5 mL 3 10/19/2023 latanoprost (XALATAN) 0.005 % ophthalmic solution Administer 1 drop into both eyes at bedtime. 07/07/2023 4 documented as of this encounter Plan of Treatment Upcoming Encounters Date Type Department Care Team (Latest Contact Info) Description 02/26/2024 1:00 PM CARTRIDGE GAUGER Ancillary Procedure Department of Ophthalmology in [place], [place] [address] [place] [address] Suri Izquierdo M.D. [address] [place] [phone] 02/26/2024 1:30 PM CARTRIDGE GAUGER Ancillary Procedure Department of Ophthalmology in [place], [place] [address] [place] [phone] 02/26/2024 2:00 PM CARTRIDGE GAUGER Ancillary Procedure Department of Ophthalmology in [place], [place] [address] [place] [phone] Suri Izquierdo M.D. [address] [place] [phone] 02/26/2024 2:15 PM CARTRIDGE GAUGER Ancillary Procedure Department of Ophthalmology in [place], [place] [address] [place] [phone] Suri Izquierdo M.D. [address] [place] [phone] 03/21/2024 12:20 PM CARTRIDGE GAUGER Appointment Outpatient Procedure Center in [address] [phone] Suri Izquierdo M.D. [address] [place] [phone] documented as of this encounter Procedures Procedure [...] Site: Left Eye ??[facility]: [id number] Balanced salt solution irrigation to injected eye [...] and return schedule given if requested. MEHRDAD [id number] Exp 01/06/24 Shelia Moody M.D. OPHTH CLINIC PROCEDURES Final Result documented in this encounter Visit Diagnoses Diagnosis Glaucoma Neovascular documented in this encounter Administered Medications Active Administered Medications - up to 3 most recent administrations Medication Order MAR Action Action Date Dose Rate Site balanced salt solution ophthalmic irrigation 30 mL (BSS) 30 mL, left eye, As needed, DIRECTED OPHTHALMIC IN OR, Starting on Sun10/23/23 at 0946, For 365 daysIndications:Glaucoma Neovascular Given 10/23/2023 2:55 PM CDT 30 mL carboxymethylcellulose 1 % ophthalmic solution 1 drop (TheraTears) 1 drop, left eye, As needed, dry eyes, DIRECTED OPHTHALMIC IN OR, Starting on Sun10/23/23 at 0946, For 365 daysIndications:Glaucoma Neovascular Given 10/23/2023 2:55 PM CDT 1 drop povidone-iodine 5 % ophthalmic solution 1 drop (Betadine) 1 drop, left eye, As needed, irrigation, DIRECTED OPHTHALMIC IN OR, Starting on Sun10/23/23 at 0946, For 365 days, Irrigate ocular and periocular region and leave for 2 mins; then flush with sterile saline solution.Indications:Glaucoma Neovascular Given 10/23/2023 2:55 PM CDT 1 drop proparacaine 0.5 % ophthalmic solution 1 drop (Alcaine) 1 drop, left eye, As needed, DIRECTED OPHTHALMIC IN OR, Starting on Sun10/23/23 at 0946, For 365 daysIndications:Glaucoma Neovascular Given 10/23/2023 2:55 PM CDT 1 drop tetracaine (PF) 0.5 % ophthalmic solution 1 drop (Altacaine) 1 drop, left eye, As needed, DIRECTED OPHTHALMIC IN OR, Starting on Sun10/23/23 at 0946, For 365 daysIndications:Glaucoma Neovascular Given 10/23/2023 2:55 PM CDT 1 drop Inactive Administered Medications - up to 3 most recent administrations Medication Order MAR Action Action Date Dose Rate Site bevacizumab intraocular injection 1.25 mg (Avastin) 1.25 mg, intravitreal, As needed, DIRECTED OPHTHALMIC IN OR, Starting on Sun10/23/23 at 1522, Inject into left eye.Indications:Glaucoma Neovascular Given 10/23/2023 3:22 PM CDT 1.25 mg Left Eye documented in this encounter
--- OUTSIDE RECORDS SUMMARY | 2024-01-31 10:12 | XMS_ITS | Encounter Summary ---
Author Organization [facility] Address [address] [place] [address] Care Team Providers Care Director Emergency Services Name Role Phone Unavailable Primary Care Provider Unavailabl e Encounter Details Date Type Department Care Team (Latest Contact Info) Description 10/19/2023 Clinical Communication Department of Ophthalmology in [place], [place] [address] [place] [address] Suri Izquierdo M.D. [address] [place] [address] Social History Tobacco Use Types Packs/Day Years Used Date Smoking Tobacco: Unknown [facility] Utilities Answer Date Recorded In [...] your living situation today? I have a [facility] place to live 07/25/2023 Sex and Gender Information Value Date Recorded Sex Assigned at Male 07/25/2023 8:23 PM CDT Legal Sex Male 4:05 PM PROFESSOR OF MEDICINE Gender Identity Male 07/25/2023 8:23 PM CDT Sexual Orientation Straight 07/25/2023 8: 23 PM CDT documented as of this encounter Plan of Treatment Upcoming Encounters Date Type Department Care Team (Latest Contact Info) Description 02/26/2024 1:00 PM PROFESSOR OF MEDICINE Ancillary Procedure Department of Ophthalmology in [place], [place] [address] [place] [address] Suri Izquierdo M.D. [address] [place] [address] 02/26/2024 1:30 PM PROFESSOR OF MEDICINE Ancillary Procedure Department of Ophthalmology in [place], [place] [address] [place] [address] 02/26/2024 2:00 PM PROFESSOR OF MEDICINE Ancillary Procedure Department of Ophthalmology in [place], [place] [address] [place] [address] Suri Izquierdo M.D. [address] [place] [phone] 02/26/2024 2:15 PM PROFESSOR OF MEDICINE Ancillary Procedure Department of Ophthalmology in [place], [place] [address] [place] [address] Suri Izquierdo M.D. [address] [place] [address] 03/21/2024 12:20 PM PROFESSOR OF MEDICINE Appointment Outpatient Procedure Center in [address] [address] Suri Izquierdo M.D. [address] [place] [address] documented as of this encounter Visit Diagnoses Not on filedocumented in this encounter
--- OUTSIDE RECORDS SUMMARY | 2024-01-31 10:12 | XMS_ITS | Encounter Summary ---
Author Organization [facility] Address [address] [place] [address] Care Team Providers Care Sql Ssis Developer Name Role Phone Unavailable Primary Care Provider Unavailabl e Encounter Details Date Type Department Care Team (Latest Contact Info) Description 11/30/2023 1:00 PM CDT Ancillary Procedure Department of Ophthalmology in [place], [place] [address] [place] [address] Suri Izquierdo M.D. [address] [place] [address] Hemorrhage Vitreous Left (HCC) Social History Tobacco Use Types Packs/Day Years Used Date Smoking Tobacco: Unknown [facility] Utilities Answer Date Recorded In the past 12 months has [facility] electric, gas, oil, or water [...] PM CDT Legal Sex Male 4:05 PM ORAL PATHOLOGIST Gender Identity Male 07/25/2023 8:23 PM CDT Sexual Orientation Straight 07/25/2023 8: 23 PM CDT documented as of this encounter Plan of Treatment Upcoming Encounters Date Type Department Care Team (Latest Contact Info) Description 02/26/2024 1:00 PM ORAL PATHOLOGIST Ancillary Procedure Department of Ophthalmology in [place], [place] [address] [place] [address] Suri Izquierdo M.D. [address] [place] [address] 02/26/2024 1:30 PM ORAL PATHOLOGIST Ancillary Procedure Department of Ophthalmology in [place], [place] [address] [place] [address] 02/26/2024 2:00 PM ORAL PATHOLOGIST Ancillary Procedure Department of Ophthalmology in [place], [place] [address] [place] [address] Suri Izquierdo M.D. [address] [place] [address] 02/26/2024 2:15 PM ORAL PATHOLOGIST Ancillary Procedure Department of Ophthalmology in [place], [place] [address] [place] [address] Suri Izquierdo M.D. [address] [place] [address] 03/21/2024 12:20 PM ORAL PATHOLOGIST Appointment Outpatient Procedure Center in [address] [address] Suri Izquierdo M.D. [address] [place] [address] documented as of this encounter Procedures Procedure [...] mass noted. JH Suri Izquierdo M.D. OPHTH ULTRASOUND Final Result OPHTHALMOLGY NON-IMAGING ORDERS documented in this encounter Visit Diagnoses Diagnosis Hemorrhage Vitreous Left (HCC) documented in this encounter
--- OUTSIDE RECORDS SUMMARY | 2024-01-31 10:12 | XMS_ITS | Encounter Summary ---
Author Organization [facility] Address [address] [place] [address] Care Team Providers Care Supervisor Home Economics Name Role Phone Unavailable Primary Care Provider Unavailabl e Reason for Visit * Outpatient (Routine) - Closed Specialty Diagnoses / Procedures Referred By Janeth t Referred To Contact Ophthalmology Suri Izquierdo M.D. [address] [place] [phone] Phone: tel: fax: [facility] Referral ID Status Reason Start Date Expiration Date Visits Re quested Visits Authorized [id number] Closed 11/09/2023 05/10/2025 1 1 Encounter Details Date Type Department Care Team (Latest Contact Info) Description 11/30/2023 1:30 PM CDT Office Visit Department of Ophthalmology in [place], [place] [address] [place] [phone] Suri Izquierdo M.D. [address] [place] [phone] Hemorrhage Vitreous Left (HCC) (Primary Dx); Retinal [...] PM CDT Legal Sex Male 4:05 PM GRAPHIC COORDINATOR Gender Identity Male 07/25/2023 8:23 PM [...] is also scheduled with neurology here at [place] in December and saw his local nurse discharge earlier this month. PLAN: - Pre-operative evaluation [...] last injection with OCT macula. Injection Location: hybris injection slot in [place]? Left eye Injection plan staffed with Dr. Herrera on 10/19/23 Patient discussed and seen with Dr. Jara and Dr. Ferris today, 11/30/23. Suri Izquierdo M.D. PGY-2 Ophthalmology Resident documented in this encounter Plan of Treatment Upcoming Encounters Date Type Department Care Team (Latest Contact Info) Description 02/26/2024 1:00 PM GRAPHIC COORDINATOR Ancillary Procedure Department of Ophthalmology in [place], [place] [address] [place] [phone] Suri Izquierdo M.D. [address] [place] [phone] 02/26/2024 1:30 PM GRAPHIC COORDINATOR Ancillary Procedure Department of Ophthalmology in [place], [place] [address] [place] [phone] 02/26/2024 2:00 PM GRAPHIC COORDINATOR Ancillary Procedure Department of Ophthalmology in [place], [place] [address] [place] [phone] Suri Izquierdo M.D. [address] [place] [address] 02/26/2024 2:15 PM GRAPHIC COORDINATOR Ancillary Procedure Department of Ophthalmology in [place], [place] [address] [place] [address] Suri Izquierdo M.D. 200 [place] [address] 03/21/2024 12:20 PM GRAPHIC COORDINATOR Appointment Outpatient Procedure Center in [address] [phone] Suri Izquierdo M.D. 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
--- OUTSIDE RECORDS SUMMARY | 2024-01-31 10:12 | XMS_ITS | Encounter Summary ---
Author Organization [facility] Address [address] [place] [address] Care Team Providers Care Director Of Public Relations Name Role Phone Unavailable Primary Care Provider Unavailabl e Reason for Referral * Outpatient (Routine) - Authorized Specialty Diagnoses / Procedures Referred By Janeth phillips Referred To Contact Diagnoses Glaucoma Neovascular Procedures Intravitreal Injection, Pharmacologic Agent - OS - Left Eye Suri Izquierdo M.D. [address] [place] [address] Phone: tel: fax: [facility] Region Referral ID Status Reason Start Date Expiration Date V isits Requested Visits Authorized [id number] Authorized 10/19/2023 10/18/2024 5 5 Reason for Visit * Outpatient (Routine) - Authorized Specialty Diagnoses / Procedures Referred By Janeth phillips Referred To Contact Diagnoses Glaucoma Neovascular Procedures Intravitreal Injection, Pharmacologic Agent - OS - Left Eye Suri Izquierdo M.D. [address] [place] [address] Phone: tel: [facility] Region Referral ID Status Reason Start Date Expiration Date V isits Requested Visits Authorized [id number] Authorized 10/19/2023 10/18/2024 5 5 Encounter Details Date Type Department Care Team (Latest Contact Info) Description 11/22/2023 9:02 AM CDT - 11/22/2023 11:59 PM CDT Hospital Encounter Outpatient Procedure Center in [address] [address] Suri Izquierdo M.D. [address] [place] [address] Glaucoma Neovascular Discharge Disposition: Home or Self [...] PM CDT Legal Sex Male 4:05 PM RESEARCH ASSOCIATE POLICY Gender Identity Male 07/25/2023 8:23 PM CDT [...] (Latest Contact Info) Description 02/26/2024 1:00 PM RESEARCH ASSOCIATE POLICY Ancillary Procedure Department of Ophthalmology in [place], [place] [address] [place] [phone] Suri Izquierdo M.D. [address] [place] [phone] 02/26/2024 1:30 PM RESEARCH ASSOCIATE POLICY Ancillary Procedure Department of Ophthalmology in [place], [place] [address] [place] [phone] 02/26/2024 2:00 PM RESEARCH ASSOCIATE POLICY Ancillary Procedure Department of Ophthalmology in [place], [place] [address] [place] [phone] Suri Izquierdo M.D. [address] [place] [phone] 02/26/2024 2:15 PM RESEARCH ASSOCIATE POLICY Ancillary Procedure Department of Ophthalmology in [place], [place] [address] [place] [phone] Suri Izquierdo M.D. [address] [place] [phone] 03/21/2024 12:20 PM RESEARCH ASSOCIATE POLICY Appointment Outpatient Procedure Center in [address] [address] Suri Izquierdo M.D. [address] [place] [phone] documented as of this encounter Procedures Procedure [...] 25 mg/mL ??Route: intravitreal, Site: Left Eye ??[facility]: 61941-109-54 Balanced salt solution irrigation to injected eye [...] motion or count fingers. Avastin, LEFT eye. [facility] 65734-653-01 LOT [id number] EXP 01/06/2024 First injection in [place]. ??Poor [...] on Yun 11/22/23 at 0944, For 1 doseIndications:Glaucoma Neovascular Given 11/22/2023 9:44 AM CDT 1.25 mg Left Eye documented in this encounter
--- OUTSIDE RECORDS SUMMARY | 2024-01-31 10:12 | XMS_ITS | Encounter Summary ---
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 [address] [place] [address] Phone: tel: fax: [facility] Referral ID Status Reason Start Date Expiration Date Visits Re quested Visits Authorized [id number] Closed 10/23/2023 04/23/2025 1 1 * Outpatient (Routine) - Closed Specialty Diagnoses / Procedures Referred By Janeth phillips Referred To Contact Ophthalmology Suri Izquierdo M.D. [address] [place] [address] Phone: tel: fax: [facility] Referral ID Status Reason Start Date Expiration Date Visits Re quested Visits Authorized [id number] Closed 10/23/2023 04/23/2025 1 1 Scheduling Instructions VTD Reason for Visit * Outpatient (Routine) - Closed Specialty Diagnoses / Procedures Referred By Janeth phillips Referred To Contact Ophthalmology Suri Izquierdo M.D. [address] [place] [address] Phone: tel: fax: [facility] Referral ID Status Reason Start Date Expiration Date Visits Re quested Visits Authorized [id number] Closed 10/19/2023 04/19/2025 1 1 Encounter Details Date Type Department Care Team (Latest Contact Info) Description 10/23/2023 12:30 PM CDT Office Visit Department of Ophthalmology in [place], [place] [address] [place] [phone] Suri Izquierdo M.D. [address] [place] [address] Occlusion Carotid Artery Left (Primary Dx); Ischemia Retina; Glaucoma Neovascular; Neuropathy Optic Ischemic Bilateral Social History Tobacco Use Types Packs/Day Years Used Date Smoking Tobacco: Unknown [facility] Utilities Answer Date Recorded In the past 12 months has [email or web address], gas, oil, or water [employer] threatened to shut off services in your [...] living situation today? I have a [facility] place to live 07/25/2023 Sex and Gender Information Value Date Recorded Sex Assigned at Male 07/25/2023 8:23 PM CDT Legal Sex Male 4:05 PM HEALTH CARE LAW SPECIALIST Gender Identity Male 07/25/2023 8:23 PM [...] had to drive to pharmacy in the [facility] to fill the prescription. He is otherwise using all his eye drops as instructed. After discussing with his children, he decided that he would prefer to establish care with a vascular specialist and or stroke specialist here at [facility], so he did not reach [...] place a referral tostroke neurology here at [place]. PLAN: - Avastin injection this afternoon in [...] last injection with OCT macula. Injection Location: [facility] Hold injection slot in [place]? Left eye Staffed with Dr. Herrera on 10/19/23 Patient discussed and seen with Dr. Sanchez today. Suri Izquierdo M.D. PGY-2 Ophthalmology Resident documented in this encounter Plan of Treatment Upcoming Encounters Date Type Department Care Team (Latest Contact Info) Description 02/26/2024 1:00 PM HEALTH CARE LAW SPECIALIST Ancillary Procedure Department of Ophthalmology in [place], [place] [address] [place] [address] Suri Izquierdo M.D. [address] [place] [address] 02/26/2024 1:30 PM HEALTH CARE LAW SPECIALIST Ancillary Procedure Department of Ophthalmology in [place], [place] [address] [place] [address] 02/26/2024 2:00 PM HEALTH CARE LAW SPECIALIST Ancillary Procedure Department of Ophthalmology in [place], [place] [address] [place] [address] Suri Izquierdo M.D. [address] [place] [address] 02/26/2024 2:15 PM HEALTH CARE LAW SPECIALIST Ancillary Procedure Department of Ophthalmology in [place], [place] [address] [place] [address] Suri Izquierdo M.D. [address] [place] [address] 03/21/2024 12:20 PM HEALTH CARE LAW SPECIALIST Appointment Outpatient Procedure Center in [address] [address] Suri Izquierdo M.D. [address] [place] [address] Scheduled Referrals Name Type Priority Associated Diagnoses [...]
--- OUTSIDE RECORDS SUMMARY | 2024-01-31 10:12 | XMS_ITS | Encounter Summary ---
Author Organization [facility] Address [address] [place] [address] Care Team Providers Care Stock Selector Name Role Phone Unavailable Primary Care Provider Unavailabl e Encounter Details Date Type Department Care Team (Late st Contact Info) Description 10/23/2023 Orders Only Department of Ophthalmology in [place], [place] [address] [place] [phone] Anabel Lang, C.O.A. [address] [place] [address] Glaucoma Neovascular (Primary Dx) Social History Tobacco Use Types Packs/Day Years Used Date Smoking Tobacco: Unknown [facility] Utilities Answer Date [...] PM CDT Legal Sex Male 4:05 PM DATA WAREHOUSE ARCHITECT Gender Identity Male 07/25/2023 8:23 PM CDT Sexual Orientation Straight 07/25/2023 8: 23 PM CDT documented as of this encounter Plan of Treatment Upcoming Encounters Date Type Department Care Team (Latest Contact Info) Description 02/26/2024 1:00 PM DATA WAREHOUSE ARCHITECT Ancillary Procedure Department of Ophthalmology in [place], [place] [address] [place] [address] Suri Izquierdo M.D. [address] [place] [address] 02/26/2024 1:30 PM DATA WAREHOUSE ARCHITECT Ancillary Procedure Department of Ophthalmology in [place], [place] [address] [place] [address] 02/26/2024 2:00 PM DATA WAREHOUSE ARCHITECT Ancillary Procedure Department of Ophthalmology in [place], [place] [address] [place] [address] Suri Izquierdo M.D. [address] [place] [phone] 02/26/2024 2:15 PM DATA WAREHOUSE ARCHITECT Ancillary Procedure Department of Ophthalmology in [place], [place] [address] [place] [address] Suri Izquierdo M.D. [address] [place] [address] 03/21/2024 12:20 PM DATA WAREHOUSE ARCHITECT Appointment Outpatient Procedure Center in [address] [address] Suri Izquierdo M.D. [address] [place] [address] documented as of this encounter Visit Diagnoses Diagnosis Glaucoma Neovascular- Primary documented in this encounter
--- OUTSIDE RECORDS SUMMARY | 2024-01-31 10:12 | XMS_ITS | Encounter Summary ---
Author Organization [facility] Address [address] [place] [address] Care Team Providers Care Concrete Stone Fabricator Name Role Phone Unavailable Primary Care Provider Unavailabl e Reason for Referral * Outpatient (Routine) - Authorized Specialty Diagnoses / Procedures Referred By Janeth phillips Referred To Contact Vascular Medicine Diagnoses Ischemia Retina Occlusion Carotid Artery Left Suri Izquierdo M.D. [address] [place] [address] Phone: tel: fax: [facility] Referral ID Status Reason Start Date Expiration Date V isits Requested Visits Authorized [id number] Authorized 11/03/2023 05/04/2025 1 1 * Outpatient (Routine) - Closed Specialty Diagnoses / Procedures Referred By Janeth phillips Referred To Contact Ophthalmology Suri Izquierdo M.D. [address] [place] [address] Phone: tel: fax: [facility] Referral ID Status Reason Start Date Expiration Date Visits Re quested Visits Authorized [id number] Closed 11/02/2023 05/03/2025 1 1 Reason for Visit * Reason Comments Occlusion Carotid Artery Lef * Outpatient (Routine) - Closed Specialty Diagnoses / Procedures Referred By Janeth phillips Referred To Contact Ophthalmology Suri Izquierdo M.D. [address] [place] [address] Phone: tel: fax: [facility] Referral ID Status Reason Start Date Expiration Date Visits Re quested Visits Authorized [id number] Closed 10/23/2023 04/23/2025 1 1 Encounter Details Date Type Department Care Team (Latest Contact Info) Description 11/02/2023 12:45 PM CDT Office Visit Department of Ophthalmology in [place], [place] [address] [place] [phone] Suri Izquierdo M.D. [address] [place] [address] Hemorrhage Vitreous Left (HCC) (Primary Dx); Ischemia Retina; Occlusion Carotid Artery Left Social History Tobacco Use Types Packs/Day Years Used Date Smoking Tobacco: Unknown [facility] Utilities Answer Date Recorded In the past 12 months has th e electric, gas, oil, or water [employer] threatened to shut off services in your [...] PM CDT Legal Sex Male 4:05 PM DOG LICENSE OFFICER SUPERVISOR Gender Identity Male 07/25/2023 8:23 PM CDT [...] understanding.He is scheduled with neurology here at [place] in December. The patient plans to schedule an appointment with [facility], and I have placed a referral [...] last injection with OCT macula. Injection Location: [facility] Hold injection slot in [place]? Left eye Staffed with Dr. Herrera on 10/19/23 Patient discussed and seen with Dr. Calderon today. Suri Izquierdo M.D. PGY-2 Ophthalmology Resident documented in this encounter Plan of Treatment Upcoming Encounters Date Type Department Care Team (Latest Contact Info) Description 02/26/2024 1:00 PM DOG LICENSE OFFICER SUPERVISOR Ancillary Procedure Department of Ophthalmology in [place], [place] [address] [place] [address] Suri Izquierdo M.D. [address] [place] [address] 02/26/2024 1:30 PM DOG LICENSE OFFICER SUPERVISOR Ancillary Procedure Department of Ophthalmology in [place], [place] [address] [place] [address] 02/26/2024 2:00 PM DOG LICENSE OFFICER SUPERVISOR Ancillary Procedure Department of Ophthalmology in [place], [place] [address] [place] [address] Suri Izquierdo M.D. [address] [place] [address] 02/26/2024 2:15 PM DOG LICENSE OFFICER SUPERVISOR Ancillary Procedure Department of Ophthalmology in [place], [place] [address] [place] [address] Suri Izquierdo M.D. [address] [place] [address] 03/21/2024 12:20 PM DOG LICENSE OFFICER SUPERVISOR Appointment Outpatient Procedure Center in [address] [address] Suri Izquierdo M.D. [address] [place] [phone] Scheduled Referrals Name Type Priority Associated Diagnoses [...]
--- OUTSIDE RECORDS SUMMARY | 2024-01-31 10:12 | XMS_ITS | Encounter Summary ---
Author Organization [facility] Address [address] [place] [address] Care Team Providers Care Access Consultant Name Role Phone Unavailable Primary Care Provider Unavailabl e Encounter Details Date Type Department Care Team (Latest Contact Info) Description 10/16/2023 Clinical Communication Department of Ophthalmology in [place] [address] [place] [address] Red Gallego M.D. [address] [place] [phone] Social History Tobacco Use Types Packs/Day Years Used Date Smoking Tobacco: Unknown [facility] Utilities Answer Date Recorded In the past 12 months has [facility] electric, gas, oil, or water [...] PM CDT Legal Sex Male 4:05 PM ELECTRICIAN ASSISTANT Gender Identity Male 07/25/2023 8:23 PM CDT Sexual Orientation Straight 07/25/2023 8: 23 PM CDT documented as of this encounter Plan of Treatment Upcoming Encounters Date Type Department Care Team (Latest Contact Info) Description 02/26/2024 1:00 PM ELECTRICIAN ASSISTANT Ancillary Procedure Department of Ophthalmology in [place], [place] [address] [place] [address] Suri Izquierdo M.D. [address] [place] [address] 02/26/2024 1:30 PM ELECTRICIAN ASSISTANT Ancillary Procedure Department of Ophthalmology in [place], [place] [address] [place] [address] 02/26/2024 2:00 PM ELECTRICIAN ASSISTANT Ancillary Procedure Department of Ophthalmology in [place], [place] [address] [place] [address] Suri Izquierdo M.D. [address] [place] [phone] 02/26/2024 2:15 PM ELECTRICIAN ASSISTANT Ancillary Procedure Department of Ophthalmology in [place], [place] [address] [place] [address] Suri Izquierdo M.D. [address] [place] [address] 03/21/2024 12:20 PM ELECTRICIAN ASSISTANT Appointment Outpatient Procedure Center in [address] [address] Suri Izquierdo M.D. 200 [place] [address] documented as of this encounter Visit Diagnoses Not on filedocumented in this encounter
--- OUTSIDE RECORDS SUMMARY | 2024-01-31 10:12 | XMS_ITS | Encounter Summary ---
Author Organization [facility] Address [address] [place] [address] Care Team Providers Care Paper Deliverer Name Role Phone Unavailable Primary Care Provider Unavailabl e Reason for Referral * Outpatient (Routine) - Closed Specialty Diagnoses / Procedures Referred By Janeth phillips Referred To Contact Ophthalmology Suri Izquierdo M.D. [address] [place] [phone] Phone: tel: fax: [facility] Referral ID Status Reason Start Date Expiration Date Visits Re quested Visits Authorized [id number] Closed 11/09/2023 05/10/2025 1 1 Reason for Visit * Outpatient (Routine) - Closed Specialty Diagnoses / Procedures Referred By Janeth phillips Referred To Contact Ophthalmology Suri Izquierdo M.D. [address] [place] [address] Phone: tel: fax: [facility] Referral ID Status Reason Start Date Expiration Date Visits Re quested Visits Authorized [id number] Closed 11/02/2023 05/03/2025 1 1 Encounter Details Date Type Department Care Team (Latest Contact Info) Description 11/09/2023 12:00 PM CDT Office Visit Department of Ophthalmology in [place], [place] [address] [place] [phone] Suri Izquierdo M.D. [address] [place] [address] Hemorrhage Vitreous Left (HCC) (Primary Dx); Glaucoma [...] PM CDT Legal Sex Male 4:05 PM KITCHEN CHEF Gender Identity Male 07/25/2023 8:23 PM CDT [...] He is scheduled with neurology here at [place] in December and is seeing his dry house attendant early next week. PLAN: - Continue Avastin [...] last injection with OCT macula. Injection Location: [facility] injection slot in [place]? Left eye Injection plan staffed with Dr. Herrera on 10/19/23 Patient discussed and seen with Dr. Benton today, 11/09/23. Suri Izquierdo M.D. PGY-2 Ophthalmology Resident documented in this encounter Plan of Treatment Upcoming Encounters Date Type Department Care Team (Latest Contact Info) Description 02/26/2024 1:00 PM KITCHEN CHEF Ancillary Procedure Department of Ophthalmology in [place], [place] [address] [place] [address] Suri Izquierdo M.D. [address] [place] [phone] 02/26/2024 1:30 PM KITCHEN CHEF Ancillary Procedure Department of Ophthalmology in [place], [place] [address] [place] [phone] 02/26/2024 2:00 PM KITCHEN CHEF Ancillary Procedure Department of Ophthalmology in [place], [place] [address] [place] [phone] Suri Izquierdo M.D. [address] [place] [phone] 02/26/2024 2:15 PM KITCHEN CHEF Ancillary Procedure Department of Ophthalmology in [place], [place] [address] [place] [address] Suri Izquierdo M.D. [address] [place] [phone] 03/21/2024 12:20 PM KITCHEN CHEF Appointment Outpatient Procedure Center in [address] [phone] Suri Izquierdo M.D. [address] [place] [address] Scheduled Orders Name Type Priority Associated Diagnoses [...] appears otherwise attached, no mass noted. [facility] us Suri Izquierdo M.D. OPHTH ULTRASOUND Final Result OPHTHALMOLGY NON-IMAGING ORDERS documented in this encounter Visit Diagnoses Diagnosis Hemorrhage Vitreous Left (HCC)- Primary Glaucoma Neovascular Occlusion Carotid Artery Left Hemorrhage Vitreous Left (HCC) documented in this encounter
--- OUTSIDE RECORDS SUMMARY | 2024-01-31 10:12 | XMS_ITS | Encounter Summary ---
Author Organization [facility] Address [address] [place] [address] Care Team Providers Care Outcomes Analyst Name Role Phone Unavailable Primary Care Provider Unavailabl e Encounter Details Date Type Department Care Team (Late st Contact Info) Description 11/30/2023 Ancillary Procedure Department of Ophthalmology Social History Tobacco Use Types Packs/Day Years Used Date Smoking Tobacco: Unknown 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 [address] [place] [address] 02/26/2024 1:30 PM DIGITAL SOLUTIONS ARCHITECT Ancillary Procedure Department of Ophthalmology in [place], [place] [address] [place] [address] 02/26/2024 2:00 PM DIGITAL SOLUTIONS ARCHITECT Ancillary Procedure Department of Ophthalmology in [place], [place] [address] [place] [address] Suri Izquierdo M.D. [address] [place] [phone] 02/26/2024 2:15 PM DIGITAL SOLUTIONS ARCHITECT Ancillary Procedure Department of Ophthalmology in [place], [place] [address] [place] [address] Suri Izquierdo M.D. [address] [place] [phone] 03/21/2024 12:20 PM DIGITAL SOLUTIONS ARCHITECT Appointment Outpatient Procedure Center in [address] [place] [address] Suri Izquierdo M.D. [address] [place] [address] documented as of this encounter Procedures Procedure Name Priority Date/Time Associated Diagnosis Comments OPHTHALMOLOGY IMAGE EXAM Routine 11/30/2023 12:00 AM CDT documented in this encounter Results * Video-Eyes US-Eye G-[id number] Image Exam (11/30/2023 12:00 AM CDT) Narrative IIMS - 11/30/2023 2:12 PM CDT This order has been created and auto-finalized to support the import of images acquired without order. The clinical documentation to support these images can be found on the encounter that produced images. us Provider Not In System IMG NON RAD IMAGING PROCE JOCE Final Result IIMS NA documented in this encounter Visit Diagnoses Not on filedocumented in this encounter
--- OUTSIDE RECORDS SUMMARY | 2024-01-31 10:12 | XMS_ITS | Encounter Summary ---
Author Organization [facility] Address [address] [place] [address] Care Team Providers Care Molecular Biology Scientist Name Role Phone Unavailable Primary Care Provider Unavailabl e Encounter Details Date Type Department Care Team (Latest Contact Info) Description 10/23/2023 2:54 PM CDT - 10/23/2023 11:59 PM CDT Hospital Encounter Outpatient Procedure Center in [place], [place] [address] [place] [address] Shelia Laughlin M.D. [address] [place] [address] Discharge Disposition: Home or Self Care Social History Tobacco Use Types Packs/Day Years Used Date Smoking Tobacco: Unknown [facility] Utilities Answer Date Recorded In the past [address] 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 5 mL 3 10/19/2023 4 latanoprost (XALATAN) 0.005 % ophthalmic solution Administer 1 drop into both eyes at bedtime. 07/07/2023 4 documented as of this encounter Plan of Treatment Upcoming Encounters Date Type Department Care Team (Latest Contact Info) Description 02/26/2024 1:00 PM AUTOMOTIVE PORTER Ancillary Procedure Department of Ophthalmology in [place], [place] [address] [place] [address] Suri Izquierdo M.D. [address] [place] [phone] 02/26/2024 1:30 PM AUTOMOTIVE PORTER Ancillary Procedure Department of Ophthalmology in [place], [place] [address] [place] [address] 02/26/2024 2:00 PM AUTOMOTIVE PORTER Ancillary Procedure Department of Ophthalmology in [place], [place] [address] [place] [address] Suri Izquierdo M.D. [address] [place] [phone] 02/26/2024 2:15 PM AUTOMOTIVE PORTER Ancillary Procedure Department of Ophthalmology in [place], [place] [address] [place] [address] Suri Izquierdo M.D. [address] [place] [phone] 03/21/2024 12:20 PM AUTOMOTIVE PORTER Appointment Outpatient Procedure Center in [address] [phone] Suri Izquierdo M.D. [address] [place] [address] documented as of this encounter Procedures Procedure [...] intravitreal, Site: Left Eye ??[facility]: 15585-585-92 Balanced salt solution irrigation to injected eye [...] and return schedule given if requested. MEHRDAD [id number] Exp 01/06/24 us Shelia Moody M.D. OPHTH CLINIC PROCEDURES Final Result documented in this encounter Visit Diagnoses Not on filedocumented in this encounter
--- OUTSIDE RECORDS SUMMARY | 2024-01-31 10:12 | XMS_ITS | Encounter Summary ---
Author Organization [facility] Address [address] [place] [address] Care Team Providers Care Student Ambassador Name Role Phone Unavailable Primary Care Provider Unavailabl e Encounter Details Date Type Department Care Team (Latest Contact Info) Description 10/18/2023 Clinical Communication Department of Ophthalmology in [place], [place] [address] [place] [address] Provider, Unknown Social History Tobacco Use Types Packs/Day Years Used Date Smoking Tobacco: Unknown [facility] Utilities Answer Date Recorded In the past 12 months has [facility] electric, gas, oil, or water [...] PM CDT Legal Sex Male 4:05 PM 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 [address] [place] [phone] 02/26/2024 1:30 PM GEOSPATIAL APPLICATIONS DEVELOPER Ancillary Procedure Department of Ophthalmology in [place], [place] [address] [place] [address] 02/26/2024 2:00 PM GEOSPATIAL APPLICATIONS DEVELOPER Ancillary Procedure Department of Ophthalmology in [place], [place] [address] [place] [address] Suri Izquierdo M.D. [address] [place] [phone] 02/26/2024 2:15 PM GEOSPATIAL APPLICATIONS DEVELOPER Ancillary Procedure Department of Ophthalmology in [place], [place] [address] [place] [address] Suri Izquierdo M.D. [address] [place] [phone] 03/21/2024 12:20 PM GEOSPATIAL APPLICATIONS DEVELOPER Appointment Outpatient Procedure Center in [address] [phone] Suri Izquierdo M.D. [address] [place] [address] documented as of this encounter Visit Diagnoses Not on filedocumented in this encounter
--- OUTSIDE RECORDS SUMMARY | 2024-01-31 10:12 | XMS_ITS | Clinical Summary ---
Author Organization [facility] Address [place], [place] [address] Care Team Providers Care Sighter Name Role Phone Marcio Gonzalez MD Primary Care Provider [phone] Allergies Active Allergy Reactions Criticality Noted Date Comments Codeine Other - Describe In Comment Field Medium 07/04/2006 doesn't tolerate Oxycodone Hallucinations High 02/13/2022 Penicillins Rash Medium 07/04/2006 Medications Medication Sig Dispensed Refills Start Date End Date Status acetaminophen (TYLENOL) 325 mg tablet Take 2 Tablets (650 mg) by mouth every 6 hours. Max acetaminophen dose: 4000mg in 24 hrs. 0 02/14/2022 Active acetic acid 0.25% 0.25 % irrigation APPLY 5 MINUTE SOAK TO WOUND EVERY OTHER DAY AND NEEDED FOLLOWING WOUND CARE ORDERS. 10/19/2022 Active ammonium lactate 12% topical (LACHYDRIN) 12 % lotion APPLY TO LEGS AND FEET ONCE DAILY. 10/19/2022 Active BiPapIndications:Ob structive sleep apnea bPAP machine [...] use: Daily 1 Each 11 12/28/2022 Active aspirin chewable 81 mg chewable tablet Chew 81 mg by mouth once daily with a meal. Active brimonidine (ALPHAGAN) 0.2 % ophthalmic solution Place 1 Drop into left eye two times daily. Active apixaban (ELIQUIS) 5 mg tabletIndications:P aroxysmal atrial fibrillation (HC) Take 1 Tablet (5 mg) by mouth two times daily. 180 Tablet 2 09/18/2023 Active latanoprost (XALATAN) 0.005 % ophthalmic solution Place 1 Drop into both eyes. 11/02/2023 Active dorzolamide (TRUSOPT) 2 % ophthalmic solution INSTILL 1 DROP INTO LEFT EYE TWICE A DAY Active atropine (ISOPTO ATROPINE) 1 % ophthalmic solution Place 1 Drop into left eye two times daily. 10/19/2023 Active dilTIAZem (DILACOR XR; DILTIA XT) 180 mg Extended-Release capsuleIndications: Paroxysmal atrial fibrillation (HC) Take 1 Capsule (180 mg) by mouth once daily. 90 Capsule 3 11/13/2023 Active mirtazapine (REMERON) 7.5 mg tabletIndications:C hronic insomnia Take 1 Tablet (7.5 mg) by mouth at bedtime. Please take at 7PM 60 Tablet 11/15/2023 Active fluticasone vhw-ldyfurzcqpwv-go lanterol (Trelegy Ellipta) 100-62.5-25 mcg inhalerIndications: Panlobular emphysema (HC) Inhale 1 Puff by mouth once daily. 180 Each 3 01/01/2024 Active albuterol HFA (PRO-AIR; VENTOLIN; PROVENTIL) 90 mcg/actuation inhalerIndications: Other emphysema (HC) Inhale 2 Puffs by mouth every 4 hours if needed for Shortness of Breath 1st choice or Wheezing 2nd choice. 18 Each 5 01/01/2024 Active potassium chloride (Klor-Con M20) 20 mEq extended-release tablet (part/cryst)Indicat ions:Edema of right lower extremity Take 1 Tablet (20 mEq) by mouth two times daily with meals. 180 Tablet 3 01/01/2024 Active atorvastatin (LIPITOR) 40 mg tabletIndications:O ther hyperlipidemia Take 1 Tablet (40 mg) by mouth at bedtime. 90 Tablet 3 01/01/2024 Active traMADoL (ULTRAM) 50 mg tabletIndications:R ight leg pain TAKE 1 TABLET BY MOUTH DAILY NEEDED FOR WOUND PAIN OR BACK PAIN 40 Tablet 01/01/2024 Active magnesium oxide (MAG-OX 400) 400 mg tabletIndications:L ow magnesium level Take 1 Tablet (400 mg) by mouth once daily. 90 Tablet 3 01/01/2024 Active furosemide (LASIX) 20 mg tabletIndications:E jeannie of right lower extremity Take 1 Tablet (20 mg) by mouth two times daily. 180 Tablet 3 01/01/2024 Active ketorolac 0.5 % ophthalmic (ACULAR) solution Place 1 Drop into left eye four times daily. 12/12/2023 Active Problems Problem Noted Date Diagnosed Date [...] clinic today. He had presented to [facility] on 11/09/2018 with difficulty finding words and [...] Finding Difficulties Recommended follow up at [facility] Stroke Clinic. 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 07/07/2009 09/21/2010 Overview (07/27/2009): INR Goal Range: 1.8 - 2.5 Encounters Date Type Department Care Team Description 01/21/2024 8:15 AM CDT Orders Only [facility] [address] [place] [address] Lab, [place] [facility] 01/21/2024 Travel 01/14/2024 Refill [facility] [address] [place] [address] [address] Marcio Gonzalez MD Refill Request (Tramadol ) 01/03/2024 Orders Only [facility] [address] [place] [address] Marcio Gonzalez MD <No scans attached> 01/01/2024 10:00 AM CDT Office Visit [facility] [address] [place] [address] Marcio Gonzalez MD Medicare ANNUAL (subsequent) Visit (78 years) 01/01/2024 Travel 12/18/2023 Refill [facility] [address] [facility] [place] [address] Marcio Gonzalez MD Refill Request (Tramadol) 12/04/2023 3:30 PM CDT Office Visit [address] [address] Ricarda Bautista MD Follow Up (F/U visit/OV,FU CT on chart from [place] no new imaging/PT states feeling alright/Losing sight in eye - might be blockage of artery /Stated all medications are up to date) 12/04/2023 Travel 11/22/2023 Telephone [facility] [address] [place] [address] Ricarda Bautista MD Appointment Request 11/13/2023 10:00 AM CDT Office Visit [facility] [address] [place] [phone] Radha Carlin MBBS CV General Cardiology Est (IN PERSON - 4MO ROUTINE CHECK//PCP:Marcio Gonzalez MD/) 11/13/2023 Travel 11/12/2023 Refill [facility] [address] [place] [address] Dorian Draper MD Refill Request (Mirtazapine 7.5mg tablet) 11/12/2023 Telephone [facility] [address] [place] [address] Ricarda Bautista MD Appointment Request 11/12/2023 Refill [facility] [address] [address] Marcio Gonzalez MD Refill Request (Klor-con M20, Atorvastatin, Furosemide, Trelegy Ellipta, Tramadol) from Last 3 Months Immunizations Name Administration [...] file 07/27/2023 Food Insecurity Answer Date Recorded Do you worry your food will run out before you are able to buy more? 1 07/27/2023 Transportation Needs Answer Date Record ed Lack of Transportation (Medical) 1 07/27/2023 Housing Stability Answer Date Recorded What is your housing situation today? 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 Oxygen Saturation 91% 01/01/2024 10: 15 AM CDT Inhaled Oxygen Concentration - - Weight 129.6 kg (285 lb 11.2 oz) 2023 10:15 AM CDT Height 185.4 cm (6' 1) 12/04/2023 3:35 PM CDT Body Mass Index 37.69 12/04/2023 3:35 PM CDT Plan of Treatment Health Maintenance Due [...] Completed 02/08/2022 Medical Devices Implanted Type Area Service Attendant Device Identifier Shelf Expiration Date Model / Serial / Lot Tissue Pericardium 0.8x8cm Phot[employer]ix Bovine - [id number] Implanted:Qty: 1 on 02/13/2022 by Kael Hernandez MD at [facility] Cv Implants Right: Groin [employer] 02/27/2022 PFP 0.8X8 / / [id number] Stent Aaa [id number] Excluder Ibc - [id number] Implanted:Qty: 1 on 02/13/2022 by Kael Hernandez MD at [facility] Right: Iliac Artery [employer] 2024 [id number] / [id number] / Stent Aaa [id number] Excluder Iic - [id number] Implanted:Qty: 1 on 02/13/2022 by Kael Hernandez MD at [facility] Right: Iliac Artery [employer] 04/20/2024 [id number] / [id number] / Procedures Procedure Name Priority Date/Time Associated Diagnosis Comments BASIC METABOLIC PANEL Routine 01/21/2024 8:26 AM CDT Paroxysmal atrial fibrillation (HC) CBC WITH AUTO DIFFERENTIAL Routine 01/21/2024 8:26 AM CDT Paroxysmal atrial fibrillation (HC) ALT (SGPT) Routine 01/21/2024 8:26 AM CDT Paroxysmal atrial fibrillation (HC) LIPID PANEL W REFLEX MEASURED LDL Routine 01/21/2024 8:26 AM CDT Elevated lipids PSA (TOTAL) (QUEST) Routine 01/01/2024 1 1:25 [...] Relevant to Health Maintenance Results * (ABNORMAL) LIPID PANEL W REFLEX MEASURED LDL (01/21/2024 8:26 AM CDT) Only the most recent of2 resultswithin the time period is included. CHOLESTEROL, TOTAL 104 <200 mg/dL [facility] HDL CHOLESTEROL 28(L) > OR = 40 mg/dL [facility] TRIGLYCERIDES 125 <150 mg/dL [facility] LDL-CHOLESTEROL 55 mg/dL (calc) [facility] Comment: Reference range: <100 Desirable range <100 mg/dL for primary prevention; ?? <70 mg/dL for patients with CHD or diabetic patients with > or = 2 CHD risk factors. LDL-C is now calculated using the Kylie calculation, which is a validated novel method providing better accuracy than the Friedewald equation in the estimation of LDL-C. Hector SS et al. ISHMAEL. 2013;310(19): 5209-7169 (http://education.AllDigital/faq/VHJ522) CHOL/HDLC RATIO 3.7 <5.0 (calc) [facility] NON HDL CHOLESTEROL 76 <130 mg/dL (calc) [facility] Comment: For patients with diabetes plus 1 major ASCVD risk factor, treating to a non-HDL-C goal of <100 mg/dL (LDL-C of <70 mg/dL) is considered a therapeutic option. Blood BLOOD SPECIMEN / Unknown 01/21/2024 8:26 AM CDT 01/21/2024 8:27 AM CDT Marcio Gonzalez MD CHEMISTRY [employer] [facility] [address] [place] [address], [facility] [address] [place] [address] * (ABNORMAL) CBC AND DIFFERENTIAL (01/21/2024 8:26 AM CDT) [facility] WHITE BLOOD CELL COUNT 7.9 3.8 - 10.8 Thousand/u L [facility] RED BLOOD CELL COUNT 3.55(L) 4.20 - 5.80 Million/uL [facility] HEMOGLOBIN 11.0(L) 13.2 - 17.1 g/dL [facility] HEMATOCRIT 34.3(L) 38.5 - 50.0 % [facility] MCV 96.6 80.0 - 100.0 fL [facility] MCH 31.0 27.0 - 33.0 pg [facility] MCHC 32.1 32.0 - 36.0 g/dL [facility] Comment: For adults, a slight decrease in the calculated MCHC value (in the range of 30 to 32 g/dL) is most likely not clinically significant; however, it should be interpreted with caution in correlation with other red cell parameters and the patient's clinical condition. RDW 13.5 11.0 - 15.0 % [facility] PLATELET COUNT 197 140 - 400 Thousand/u L [facility] MPV 11.8 7.5 - 12.5 fL [facility] ABSOLUTE NEUTROPHILS 4,100 1,500 - 7,800 cells/uL [facility] ABSOLUTE LYMPHOCYTES 2,781 850 - 3,900 cells/uL [facility] ABSOLUTE MONOCYTES 885 200 - 950 cells/uL [facility] ABSOLUTE EOSINOPHILS 87 15 - 500 cells/uL [facility] ABSOLUTE BASOPHILS 47 0 - 200 cells/uL [facility] NEUTROPHILS 51.9 % [facility] LYMPHOCYTES 35.2 % [facility] MONOCYTES 11.2 % [facility] EOSINOPHILS 1.1 % [facility] BASOPHILS 0.6 % [facility] CBC (INCLUDES DIFF/PLT) COMMENTS [facility] Comment: Review of peripheral smear confirms automated results. Blood BLOOD SPECIMEN / Unknown 01/21/2024 8:26 AM CDT 01/21/2024 8:27 AM CDT Marcio Gonzalez MD HEMATOLOGY [employer] [address] [place] [address], [facility] [address] [place] [address] * ALT (SGPT) (01/21/2024 8:26 AM CDT) [facility] ALT 19 9 - 46 U/L [facility] Blood BLOOD SPECIMEN / Unknown 01/21/2024 8:26 AM CDT 01/21/2024 8:27 AM CDT Marcio Gonzalez MD CHEMISTRY [employer] [facility] [address] [place] [address], [facility] [address] [place] [address] * (ABNORMAL) BASIC METABOLIC PANEL (01/21/2024 8:26 AM CDT) Only the most recent of2 resultswithin the time period is included. [facility] GLUCOSE 107(H) 65 - 99 mg/dL [facility] Comment: ? Fasting reference interval For someone without known diabetes, a glucose value between 100 and 125 mg/dL is consistent with prediabetes and should be confirmed with a follow-up test. UREA NITROGEN (BUN) 12 7 - 25 mg/dL [facility] CREATININE 1.03 0.70 - 1.28 mg/dL [facility] EGFR 74 > OR = 60 mL/min/1. 73m2 [facility] BUN/CREATININE RATIO SEE NOTE: 6 - 22 (calc) [facility] Comment: ?? Not Reported: BUN and Creatinine are within ?? reference range. ? SODIUM 138 135 - 146 mmol/L [facility] POTASSIUM 4.2 3.5 - 5.3 mmol/L [facility] CHLORIDE 99 98 - 110 mmol/L [facility] CARBON DIOXIDE 33(H) 20 - 32 mmol/L [facility] ELECTROLYTE BALANCE 6(L) 7 - 17 mmol/L (calc) [facility] CALCIUM 9.4 8.6 - 10.3 mg/dL [facility] tyra [facility] Blood BLOOD SPECIMEN / Unknown 01/21/2024 8:26 AM CDT 01/21/2024 8:27 AM CDT Marcio Gonzalez MD CHEMISTRY Performing Organization Address City/[facility]/ZIP Co de Phone Number [employer] [facility] [address] [place] [address], [place] [phone] [facility] [address] [place] [address] * (ABNORMAL) PSA (TOTAL) (QUEST) (01/01/2024 11:25 AM CDT) PSA, TOTAL 5.16(H) < OR = 4.00 ng/mL [facility] Comment: The total PSA value from this assay system is standardized against the WHO standard. The test result will be approximately 20% lower when compared to the equimolar-standardized total PSA (Case Lyle). Comparison of serial PSA results should be [...] Gonzalez MD SEND OUTS Performing Organization Address [facility]/ZIP Co de Phone Number [employer] [facility] [address] [place] [address], [place] [phone] [facility] [address] [place] [address] * (ABNORMAL) HEMOGLOBIN A1C SCREENING (01/01/2024 11:23 AM CDT) HEMOGLOBIN A1C 5.8(H) <5.7 % of total Hgb [facility] Comment: For someone without known diabetes, a [...] change in test platforms from the Ac[employer] S[employer] Ss[employer] Developer to the Lindsey leland c503 may have shifted HbA1c results compared to historical results. Based on laboratory validation testing conducted at [facility], the Lindsey platform relative to the Acosta [...] 11:23 AM CDT Marcio Gonzalez MD CHEMISTRY Performing Organization Address City/[facility]/ZIP Co de Phone Number [facility] [address] [place] [address], [facility] [address] [place] [address] * MAGNESIUM (01/01/2024 11:23 AM CDT) MAGNESIUM 2.0 1.5 - 2.5 mg/dL [facility] Blood BLOOD SPECIMEN / Unknown 01/01/2024 11:23 AM CDT 01/01/2024 11:23 AM CDT Marcio Gonzalez MD CHEMISTRY Performing Organization Address City/[facility]/ZIP Co de Phone Number [facility] [address] [place] [address], [facility] [address] [place] [address] * EKG 12 LEAD (11/13/2023 10:44 AM CDT) Interpretation Normal sinus rhythm Normal ECG Ventricular Rate 63 BPM Atrial Rate 63 BPM P-R Interval 180 ms QRS Duration 112 ms QT 408 ms QTc 417 ms P [place] 76 degrees R [place] 46 degrees T [place] 50 degrees 11/13/2023 10:4 4 AM CDT 11/13/2023 5:50 PM CDT Radha Remington Carlin MBBS EKG ORD * ANTI HCV (02/08/2022 11:20 AM CDT) HEPATITIS C ANTIBODY Non-React mandie Non-React mandie 02/09/2022 2:56 PM CDT [facility] Comment:Antibodies to HCV no t detected; does not exclude the possibility of exposure to HCV. Blood BLOOD SPECIMEN / Unknown Venipuncture / Unknown 02/08/2022 11:20 AM CDT 02/08/2022 11:27 AM CDT aMrcio Gonzalez MD SEND OUTS [facility] [address] [place] [address], [place] * CT CHEST SCREENING LOW DOSE [...] @11/02/2021 8:56:18 AM Pediatric and Body Radiology [email or web address] Narrative 11/02/2021 9:43 AM CDT For [...] Documents on File Type Date Recorded Patient Geography Professor Expl anation Treatment Guidelines 02/11/2022 * Full Code (Latest Code Status on File) Date Activated Date Inactivated Comments 02/13/2022 1:00 PM 02/14/2022 5:39 PM Question Answer Comments Code Status Discussion: Reviewed Preferences * Full Code Date Activated Date Inactivated Comments 02/13/2022 6:05 AM 02/13/2022 12:59 PM Question Answer Comments Code Status Discussion: Unable to Assess Preferences, Provider to review later Care Teams Sighter Relationship Specialty Start Date End [place] [address] PCP - General Family Practice 12/20/15
== END 2024-01-31 10:02 | disposition home or self-care (01) ==
LOC: WOUND 10:02
PROVIDERS: PCP Family Medicine; Visit Provider Nurse Practitioner Family
DX: I87.311 Chronic venous hypertension (idiopathic) with ulcer of right lower extremity (principal); I89.0 Lymphedema, not elsewhere classified; L97.212 Non-pressure chronic ulcer of right calf with fat layer exposed
CPT/HCPCS: 15271; Q4151

== ENCOUNTER 2024-02-14 10:02 | Outpatient (CLI) | payer MEDICARE, BC, SELFPAY ==
--- OUTSIDE RECORDS SUMMARY | 2024-02-14 10:04 | XMS_ITS | Encounter Summary ---
Author Organization [facility] Address [address] [place] [address] Care Team Providers Care Anesthesia Associate Name Role Phone Unavailable Primary Care Provider Unavailabl e Encounter Details Date Type Department Care Team (Latest Contact Info) Description 01/29/2024 Clinical Communication Department of Ophthalmology in [place], [place] [address] [place] [address] Doc Ferrsi M.D. 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 - 01/29/2024 12:[address] non Gonda orders for patients injection series. Next injection in [place] on 03/21/24. Thank you documented in this encounter Plan of Treatment Upcoming Encounters Date Type Department Care Team (Latest Contact Info) Description 02/26/2024 1:00 PM QUAD STAYER Ancillary Procedure Department of Ophthalmology in [place], [place] [address] [place] [address] Suri Izquierdo M.D. [address] [place] [address] 02/26/2024 1:30 PM QUAD STAYER Ancillary Procedure Department of Ophthalmology in [place], [place] [address] [place] [address] 02/26/2024 2:00 PM QUAD STAYER Ancillary Procedure Department of Ophthalmology in [place], [place] [address] [place] [phone] Suri Izquierdo M.D. [address] [place] [address] 02/26/2024 2:15 PM QUAD STAYER Ancillary Procedure Department of Ophthalmology in [place], [place] [address] [place] [address] Suri Izquierdo M.D. [address] [place] [address] 03/21/2024 12:20 PM QUAD STAYER Appointment Outpatient Procedure Center in [address] [phone] Suri Izquierdo M.D. [address] [place] [phone] documented as of this encounter Visit Diagnoses Not on filedocumented in this encounter
--- OUTSIDE RECORDS SUMMARY | 2024-02-14 10:04 | XMS_ITS ---
Author Organization [facility] Address [address] [place] [address] Care Team Providers Care Sash Finisher Name Role Phone Unavailable Unavailable Unavailable Surgery Details Not on file Complications Check Surgery Details section. Procedure Estimated Blood Loss Check Surgery Details section. Procedure Findings Check Surgery Details section. Procedure Specimens Taken Check Surgery Details section.
--- OUTSIDE RECORDS SUMMARY | 2024-02-14 10:04 | XMS_ITS | Referral Summary ---
Author Organization [facility] Address [address] [place] [address] Care Team Providers Care Lead Database Administrator Name Role Phone Unavailable Primary Care Provider Unavailabl e Source Comments Patient records contain information from all sites at [facility]. For routine questions regarding patient records, call [phone] during business hours, M-F 8:00 AM - 5:00 PM Central Time. Record requests for emergency care only can be directed to [phone] at any time.[facility] Encounters Date Type Department Care Team Description 02/12/2024 Orders Only Department of Ophthalmology in [place], [place] [address] [place] [address] Andi Ortez C.O.A. 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 01/24/2024 7:59 AM CDT - 01/24/2024 11:59 PM CDT Hospital Encounter Outpatient Procedure Center in [address] [phone] Suri Izquierdo M.D. Glaucoma Neovascular Discharge Disposition: Home or Self Care 01/16/2024 Refill Department of Ophthalmology in [place], [place] [address] [place] [address] Suri Izquierdo M.D. Med Refill 01/11/2024 Orders Only Department of Ophthalmology in [place], [place] [address] [place] [phone] Andi Ortez C.O.A. 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 12/27/2023 1:01 PM CDT - 12/27/2023 11:59 PM CDT Hospital Encounter Outpatient Procedure Center in [address] [phone] Suri Izquierdo M.D. Glaucoma Neovascular Discharge Disposition: Home or Self Care 12/19/2023 10:00 AM CDT Comprehensive Visit Department of Neurology in [address] [address] Jojo Barrientos M.D. Occlusion Carotid Artery Left; Ischemia Retina; Glaucoma Neovascular; Neuropathy Optic Ischemic Bilateral 2023 12:15 PM CDT Clinical Communication Virtual Review in [address] [address] Pre-visit Intake 12/13/2023 10:00 AM CDT Procedure visit Department of Ophthalmology in [place], [place] [address] [place] [phone] Wero Gasca M.D. 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 12/07/2023 Clinical Communication Department of Ophthalmology in [address] [address] Carl Petty 12/07/2023 Documentation Department of Ophthalmology in [place], [place] [address] [place] [address] Suri Izquierdo M.D. 11/30/2023 12:05 AM CDT Ancillary Procedure Department of Ophthalmology 11/30/2023 Ancillary Procedure Department of Ophthalmology 11/30/2023 1:30 PM CDT Office Visit Department of Ophthalmology in [place], [place] [address] [place] [address] Suri Izquierdo M.D. 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 Hemorrhage Vitreous Left (HCC) 11/22/2023 9:02 AM CDT - 11/22/2023 11:59 PM CDT Hospital Encounter Outpatient Procedure Center in [address] [address] Suri Izquierdo M.D. Glaucoma Neovascular Discharge Disposition: Home or Self Care from [...] 5 mL 3 4 01/17/20 24 Discontin ued([facility]) Hospital, Clinic, or Other Facility Administered Medication [...] Tobacco: Every Day Cigarettes Smokeless Tobacco: Never [facility] Utilities Answer Date Recorded In the past 12 months has e [place], gas, oil, or water company threatened to [...] your living situation today? 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 [address] [place] [phone] 02/26/2024 1:30 PM ALLIED HEALTH TEACHER Ancillary Procedure Department of Ophthalmology in [place], [place] [address] [place] [phone] 02/26/2024 2:00 PM ALLIED HEALTH TEACHER Ancillary Procedure Department of Ophthalmology in [place], [place] [address] [place] [phone] Suri Izquierdo M.D. [address] [place] [phone] 02/26/2024 2:15 PM ALLIED HEALTH TEACHER Ancillary Procedure Department of Ophthalmology in [place], [place] [address] [place] [phone] Suri Izquierdo M.D. [address] [place] [phone] 03/21/2024 12:20 PM ALLIED HEALTH TEACHER Appointment Outpatient Procedure Center in [address] [address] Suri Izquierdo M.D. [address] [place] [phone] Medical Devices Implanted Type Area Volleyball Coach Device Identifier Shelf Expiration Date Model / Serial / Lot J J Sig Patella Oval 41 - Briones [id number] Implanted:Qty: 1 on 10/23/2011 Knee Implant Other/Legacy - See Implant Description [employer] Description:Device Manufactu [facility] [employer]. Body Location - Other. Left. Device Status Text - [id number] [id number]. Depuy-Insert Stabilized Sz 5 12.5mm - Briones [id number] Implanted:Qty: 1 on 10/23/2011 Knee Implant Other/Legacy - See Implant Description [employer] Description:Device Manufactu rer - [employer]. Body Location - Other. Left. Device Status Text - [id number] [id number]. Depuy-Tib Tray Mod Cement Cocr Sz5 - Briones [id number] Implanted:Qty: 1 on 10/23/2011 Knee Implant Other/Legacy - See Implant Description [employer] Description:Device Manufactu rer - [employer]. Body Location - Other. Left. Device Status Text - [id number] [id number]. Sigma Post Stab.W Lug Fem Sz 6 Lt - Briones [id number] Implanted:Qty: 1 on 10/23/2011 Knee Implant Other/Legacy - See Implant Description [employer] Description:Device Manufactu rer - J [employer]. Body Location - Other. Left. Device Status Text - [id number] [id number]. Cement Bone Large - Briones [id number] Implanted:Qty: 2 on 10/23/2011 Misc Other [place] Description:Device Manufactu rer - Pett[employer]ar[employer].. Device Status Text - [id number]. Procedures [...] intravitreal, Site: Left Eye ??[facility]: 06310-947-04, Lot: [id number], Expiration date: 04/07/2024 Balanced salt solution irrigation [...] fingers. Avastin, LEFT eye. [facility] 10216-799-26 LOT [id number] EXP +subconj LIDO - helped greatly - [...] fingers. Avastin, LEFT eye. [facility] 11199-725-72 LOT [id number] EXP 01/19/2024 Gage pain with injection after multiple numbing drops and Q-tips. Would recommend subconj lido/epi No complications. Nicholas Carlos MD Suri Izquierdo M.D. [facility] PROCEDURE S Edited Result - Final * Anderson Retinal Photocoagulation - OS - Left Eye (12/13/2023 11:26 AM CDT) Narrative [facility] - 12/13/2023 11:26 AM CDT [...] post procedure care education. Wero Hall M.D. [facility] PROCEDURE S Final Result Performing Organization Address City/[facility] Co de Phone Number [facility] ORD[facility] * B-Scan Ultrasound - OS - Left Eye (11/30/2023 2:12 PM CDT) Narrative OPHTHALMOL NON-IMAGING ORDERS - 12/03/2023 3:25 PM CDT 11/30/2023 B-scan Left Eye: Moderate to dense vitreous opacities mostly inferiorly, likely retinal detachment nasally from approximately 130E - 430E with possible break visualized on L430. Retina appears otherwise attached, no mass noted. Suri Izquierdo M.D. [facility] ULTRASOUND Final Result [facility] * Eyes US-Eye T-Iapg-Vyntsxitmfokm Image Exam (11/30/2023 12:05 AM CDT) Only [...] NON RAD IMAGING PROCE DURES Final Result IICA NA * Intravitreal Injection, Pharmacologic Agent - [...] intravitreal, Site: Left Eye ??[facility]: 72328-906-17 Balanced salt solution irrigation to injected eye [...] fingers. Avastin, LEFT eye. [facility] 03002-997-32 LOT [id number] EXP 01/06/2024 First injection in [place]. ??Poor visual potential. ??Neovascular glaucoma and high intraocular pressure. ??Would consider cyclophotocoagulation as patient is having daily headaches likely related to uncontrolled intraocular pressure on maximal medical treatment. ?? No injection complications. Nicholas Carlos MD Suri Izquierdo M.D. [facility] PROCEDURE S Final Result * Creatinine [...] M.D. LAB BLOOD ADD-ON Final Re sult [facility] [address] [place] [address], [facility] [address] [place] [address] * (ABNORMAL) Electrolyte Panel with Creatinine Dimple (10/26/2011 4:13 AM CDT) BUN (Blood Urea Nitrogen), S 8 8 - 24 MG/DL [facility] Sodium, P 135 135 - 145 MMOL/L [facility] HX Bicarbonate, P/S 32(H) 22 - 29 MMOL/L [facility] Potassium, P 4.5 3.6 - 5.2 MMOL/L [facility] Chloride, S 98(L) 100 - 108 MMOL/L [facility] Creatinine, Dimple 0.8(L) 0.9 - 1.4 MG/DL [facility] Glucose, S 117 70 - 140 MG/DL [facility] 10/26/2011 4:13 AM CDT 10/26/2011 4:13 AM CDT us Allison Redmond P.A.-C., P.A. LAB BLOOD ADD-ON Fi nal Result [facility] [address] from Last 3 Months or Most Recently Relevant to Health Maintenance Insurance MEDICARE [facility]
--- OUTSIDE RECORDS SUMMARY | 2024-02-14 10:04 | XMS_ITS | Encounter Summary ---
Author Organization [facility] Address [address] [place] [address] Care Team Providers Care Manufacturers Service Representative Name Role Phone Unavailable Primary Care Provider Unavailabl e Reason for Visit * Reason Comments Retina Follow Up * Outpatient (Routine) - Closed Specialty Diagnoses / Procedures Referred By Janeth phillips Referred To Contact Ophthalmology Wero Gasca M.D. [address] [place] [phone] Phone: tel: fax: Doc Ferris M.D. [address] [place] [phone] Phone: tel: fax: Referral ID Status Reason Start Date Expiration Date Visits Re quested Visits Authorized [id number] Closed 12/13/2023 06/13/2025 1 1 Encounter Details Date Type Department Care Team (Latest Contact Info) Description 01/11/2024 9:45 AM CDT Office Visit Department of Ophthalmology in [place], [place] [address] [place] [phone] Doc Ferris M.D. 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 Followup: 8-weeks after last injection-- no testing Injection Location: [place] Hold injection slot in [place]? Left eye documented in this encounter Plan of Treatment Upcoming Encounters Date Type Department Care Team (Latest Contact Info) Description 02/26/2024 1:00 PM CIVIL STRUCTURAL ENGINEER Ancillary Procedure Department of Ophthalmology in [place], [place] [address] [place] [address] Suri Izquierdo M.D. [address] [place] [phone] 02/26/2024 1:30 PM CIVIL STRUCTURAL ENGINEER Ancillary Procedure Department of Ophthalmology in [place], [place] [address] [place] [address] 02/26/2024 2:00 PM CIVIL STRUCTURAL ENGINEER Ancillary Procedure Department of Ophthalmology in [place], [place] [address] [place] [address] Suri Izquierdo M.D. [address] [place] [address] 02/26/2024 2:15 PM CIVIL STRUCTURAL ENGINEER Ancillary Procedure Department of Ophthalmology in [place], [place] [address] [place] [address] Suri Izquierdo M.D. 200 [place] [address] 03/21/2024 12:20 PM CIVIL STRUCTURAL ENGINEER Appointment Outpatient Procedure Center in [address] [phone] Suri Izquierdo M.D. 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
--- OUTSIDE RECORDS SUMMARY | 2024-02-14 10:04 | XMS_ITS | Encounter Summary ---
Author Organization [facility] Address [address] [place] [address] Care Team Providers Care Wafer Cleaner Name Role Phone Unavailable Primary Care Provider Unavailabl e Reason for Referral * Outpatient (Routine) - Authorized Specialty Diagnoses / Procedures Referred By Janeth phillips Referred To Contact Ophthalmology Doc Ferris M.D. [address] [place] [address] Phone: tel: fax: [facility] Referral ID Status Reason Start Date Expiration Date V isits Requested Visits Authorized [id number] Authorized 01/11/2024 07/12/2025 1 1 Scheduling Instructions Retinal Injection Plan created on 10/23/2023 Left Eye: Avastin Left eye for Other: neovascular glaucoma in the next 2 weeks in [place] Follow-up for 1 more injections of Avastin in 8 weeks. Followup: 8-weeks after last injection-- no testing Injection Location: [place] Hold injection slot in [place]? 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 [address] [place] [address] Phone: tel: fax: [facility] Referral ID Status Reason Start Date Expiration Date V isits Requested Visits Authorized [id number] Authorized 01/11/2024 01/10/2025 1 1 Encounter Details Date Type Department Care Team (Late st Contact Info) Description 01/11/2024 Orders Only Department of Ophthalmology in [place], [place] [address] [place] [address] Andi Ortez C.O.A. 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 [address] [place] [address] 02/26/2024 1:30 PM DRUG ABUSE WORKER Ancillary Procedure Department of Ophthalmology in [place], [place] [address] [place] [address] 02/26/2024 2:00 PM DRUG ABUSE WORKER Ancillary Procedure Department of Ophthalmology in [place], [place] [address] [place] [address] Suri Izquierdo M.D. [address] [place] [phone] 02/26/2024 2:15 PM DRUG ABUSE WORKER Ancillary Procedure Department of Ophthalmology in [place], [place] [address] [place] [address] Suri Izquierdo M.D. [address] [place] [address] 03/21/2024 12:20 PM DRUG ABUSE WORKER Appointment Outpatient Procedure Center in [address] [phone] Suri Izquierdo M.D. 200 [place] [address] Scheduled Orders Name Type Priority Associated Diagnoses [...]
--- OUTSIDE RECORDS SUMMARY | 2024-02-14 10:04 | XMS_ITS | Clinical Summary ---
Author Organization [facility] Address [address] [place] [address] Care Team Providers Care Desk Operator Name Role Phone Unavailable Primary Care Provider Unavailabl e Source Comments Patient records contain information from all sites at [facility]. For routine questions regarding patient records, call [phone] during business hours, M-F 8:00 AM - 5:00 PM Central Time. Record requests for emergency care only can be directed to [phone] at any time.[facility] Allergies Active Allergy Reactions Criticality Noted [...] 5 mL 3 4 01/17/20 24 Discontin ued([facility]) Hospital, Clinic, or Other Facility Administered Medication [...] 02/12/2024 Orders Only Department of Ophthalmology in [place], [place] [address] [place] [phone] Andi Ortez C.O.A. 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 01/24/2024 7:59 AM CDT - 01/24/2024 11:59 PM CDT Hospital Encounter Outpatient Procedure Center in [address] [phone] Suri Izquierdo M.D. Glaucoma Neovascular Discharge Disposition: Home or Self Care 01/16/2024 Refill Department of Ophthalmology in [address] [address] Suri Izquierdo M.D. Med Refill 01/11/2024 9:45 AM CDT Office Visit Department of Ophthalmology in [place], [place] [address] [place] [phone] Doc Ferris M.D. 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 12/27/2023 1:01 PM CDT - 12/27/2023 11:59 PM CDT Hospital Encounter Outpatient Procedure Center in [address] [phone] Suri Izquierdo M.D. Glaucoma Neovascular Discharge Disposition: Home or Self Care 12/19/2023 10:00 AM CDT Comprehensive Visit Department of Neurology in [address] [address] Jojo Barrientos M.D. Occlusion Carotid Artery Left; Ischemia Retina; Glaucoma Neovascular; Neuropathy Optic Ischemic Bilateral 2023 12:15 PM CDT Clinical Communication Virtual Review in [address] [address] Pre-visit Intake 12/13/2023 10:00 AM CDT Procedure visit Department of Ophthalmology in [place], [place] [address] [place] [address] Wero Gasca M.D. 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 12/07/2023 Clinical Communication Department of Ophthalmology in [place], [place] [address] [place] [address] Carl Petty 12/07/2023 Documentation Department of Ophthalmology in [place], [place] [address] [place] [address] Suir Izquierdo M.D. 11/30/2023 1:30 PM CDT Office Visit Department of Ophthalmology in [place], [place] [address] [place] [address] Suri Izquierdo M.D. 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 Hemorrhage Vitreous Left (HCC) 11/30/2023 12:05 AM CDT Ancillary Procedure Department of Ophthalmology 11/30/2023 Ancillary Procedure Department of Ophthalmology 11/22/2023 9:02 AM CDT - 11/22/2023 11:59 PM CDT Hospital Encounter Outpatient Procedure Center in [address] [address] Suri Izquierdo M.D. Glaucoma Neovascular Discharge Disposition: Home or Self Care from Last 3 Months Social History Tobacco Use Types Packs/Day Years Used Date Smoking Tobacco: Every Day Cigarettes Smokeless Tobacco: Never [facility] Utilities Answer Date Recorded In the past 12 months has [email or web address] electric, gas, oil, or water company threatened [...] your living situation today? I have a [facility] place to live 07/25/2023 Sex and Gender Information Value Date Recorded Sex Assigned at Male 07/25/2023 8:23 PM CDT Legal Sex Male 4:05 PM HEALTH SERVICES INFORMATION SPECIALIST Gender Identity Male 07/25/2023 8:23 PM [...] Contact Info) Description 02/26/2024 1:00 PM HEALTH SERVICES INFORMATION SPECIALIST Ancillary Procedure Department of Ophthalmology in [place], [place] [address] [place] [phone] Suri Izquierdo M.D. [address] [place] [phone] 02/26/2024 1:30 PM HEALTH SERVICES INFORMATION SPECIALIST Ancillary Procedure Department of Ophthalmology in [place], [place] [address] [place] [phone] 02/26/2024 2:00 PM HEALTH SERVICES INFORMATION SPECIALIST Ancillary Procedure Department of Ophthalmology in [place], [place] [address] [place] [phone] Suri Izquierdo M.D. [address] [place] [phone] 02/26/2024 2:15 PM HEALTH SERVICES INFORMATION SPECIALIST Ancillary Procedure Department of Ophthalmology in [place], [place] [address] [place] [phone] Suri Izquierdo M.D. [address] [place] [phone] 03/21/2024 12:20 PM HEALTH SERVICES INFORMATION SPECIALIST Appointment Outpatient Procedure Center in [address] [phone] Suri Izquierdo M.D. [address] [place] [phone] Health Maintenance Due Date Last Done Comments Hepatitis C Screening 1945 Tobacco Cessation counseling 1945 Zoster Vaccines (1 of 2) 12/15/1995 DTaP,Tdap,and Td Vaccines (3 - Td or Tdap) 03/16/2018 03/16/2008, 07/04/2006 RSV vaccine - (32-36 weeks) or 60+ years (1 - 1-dose 75+ series) 2020 Depression Screening (Annual PHQ-2) 04/09/2023 COVID-19 Vaccine (2023- season) 2023 01/17/2023, 01/10/2022, 08/23/2021, Additional history exists Influenza Vaccine (#1) 2024 , 01/10/2022, 02/22/2021, Additional history exists Potassium Level 03/27/2024 03/27/2023, 0 11/2021, 02/13/2022, Additional history exists Sodium Level 03/27/2024 03/27/2023, 11/2021, 02/13/2022, Additional history exists Creatinine Level (Kidney Function Test) 07/29/2024 07/30/2023, 03/27/2023, 02/14/2022, Additional history exists Pneumococcal vaccine (65+ years) Completed 05/19/2015, 06/05/2013, 03/14/2000 Abdominal Aortic Aneurysm (AAA) Screen Discontinued 07/30/2018, 01/11/2016 Fall Risk Screen (Annual) Completed 01/24/2024 IPV Vaccines Aged Out No longer eligi ble based on patient's age to complete this topic Medical Devices Implanted Type Area Branding Specialist Device Identifier Shelf Expiration Date Model / Serial / Lot J J Sig Patella Oval 41 - Briones [id number] Implanted:Qty: 1 on 10/23/2011 Knee Implant Other/Legacy - See Implant Description [employer] Description:Device Manufactu rer - [employer]. Body Location - Other. Left. Device Status Text - [id number] [id number]. Depuy-Insert Stabilized Sz 5 12.5mm - Briones [id number] Implanted:Qty: 1 on 10/23/2011 Knee Implant Other/Legacy - See Implant Description [employer] Description:Device Manufactu rer - [employer]. Body Location - Other. Left. Device Status Text - [id number] [id number]. Depuy-Tib Tray Mod Cement Cocr Sz5 - Briones [id number] Implanted:Qty: 1 on 10/23/2011 Knee Implant Other/Legacy - See Implant Description [employer] Description:Device Manufactu rer - [employer]. Body Location - Other. Left. Device Status Text - KNEE [id number]. Sigma Post Stab.W Lug Fem Sz 6 Lt - Briones [id number] Implanted:Qty: 1 on 10/23/2011 Knee Implant Other/Legacy - See Implant Description [employer] Description:Device Manufactu rer - [employer]. Body Location - Other. Left. Device Status Text - KNEE [id number]. Cement Bone Large - Briones [id number] Implanted:Qty: 2 on 10/23/2011 Misc Other [place] Description:Device Manufactu rer - Beverly Amarilis.. Device [...] - Left Eye (01/24/2024 8:46 AM CDT) Buzz Cagle M.D. - 01/24/2024 8:50 AM CDT Pre-Procedure [...] mg/mL ??Route: intravitreal, Site: Left Eye ??[facility]: 34266-975-21, Lot: [id number], Expiration date: 04/07/2024 Balanced salt solution irrigation [...] fingers. Avastin, LEFT eye. [facility] 18031-687-35 LOT [id number] EXP +subconj LIDO - helped greatly - no pain. No complications. Nicholas Carlos MD Suri Izquierdo M.D. OPH CLINIC PROCEDURE S [...] fingers. Avastin, LEFT eye. [facility] [id number] LOT [id number] EXP 01/19/2024 [place] pain with injection after multiple numbing drops and Q-tips. Would recommend subconj lido/epi No complications. Nicholas Carlos MD us Suri Izquierdo M.D. OPHTH CLINIC PROCEDURE S Edited Result - Final * [...] care education. Wero Hall M.D. OPH CLINIC PROCEDURE S Final Result Performing Organization Address [facility] Co de Phone Number [facility] * B-Scan Ultrasound - OS - Left Eye (11/30/2023 2:12 PM CDT) Narrative [facility] NON-IMAGING ORDERS - 12/03/2023 3:25 PM CDT 11/30/2023 B-scan Left Eye: Moderate to dense vitreous opacities mostly inferiorly, likely retinal detachment nasally from approximately 130E - 430E with possible break visualized on L430. Retina appears otherwise attached, no mass noted. Suri Izquierdo M.D. [facility] ULTRASOUND Final Result Performing Organization Address [facility] de Phone Number [facility] NON-IMAGING ORDERS * Eyes US-Eye P-Elbj-Brmetjiizvoca Image Exam (11/30/2023 12:05 AM CDT) Only [...] NON RAD IMAGING PROCE JOCE Final Result Performing Organization Address [facility] Co de Phone Number [facility] NA [...] mg/mL ??Route: intravitreal, Site: Left Eye ??[facility]: 88859-047-40 Balanced salt solution irrigation to injected eye [...] fingers. Avastin, LEFT eye. [facility] 23535-244-24 LOT [id number] EXP 01/06/2024 First injection in CF. ??Poor visual potential. ??Neovascular glaucoma and high intraocular pressure. ??Would consider cyclophotocoagulation as patient is having daily headaches likely related to uncontrolled intraocular pressure on maximal medical treatment. ?? No injection complications. Nicholas Carlos MD us Suri Izquierdo M.D. OPH CLINIC PROCEDURE S Final Result * Creatinine with [...] M.D. LAB BLOOD ADD-ON Final Re sult Performing Organization Address City/[facility]/ZIP Co de Phone Number [facility] [place] [address] D[address] [facility] 200 [place] [address] * (ABNORMAL) Electrolyte Panel with Creatinine Dimple (10/26/2011 4:13 AM CDT) BUN (Blood Urea Nitrogen), S 8 8 - 24 MG/DL [facility] [place] Sodium, P 135 135 - 145 MMOL/L [facility] [place] HX Bicarbonate, P/S 32(H) 22 - 29 MMOL/L [facility] [place] Potassium, P 4.5 3.6 - 5.2 MMOL/L [facility] [place] Chloride, S 98(L) 100 - 108 MMOL/L [facility] [place] Creatinine, Dimple 0.8(L) 0.9 - 1.4 MG/DL [facility] [place] Glucose, S 117 70 - 140 MG/DL [facility] [place] 10/26/2011 4:13 AM CDT 10/26/2011 4:13 AM CDT Allison Redmond P.A.-C., P.A. LAB BLOOD ADD-ON Fi nal Result Performing Organization Address City/[facility]/ZIP Co de Phone Number [facility] [place] [address] from Last 3 Months or Most Recently Relevant to Health Maintenance Insurance MEDICARE [facility]
--- OUTSIDE RECORDS SUMMARY | 2024-02-14 10:04 | XMS_ITS | Encounter Summary ---
Author Organization [facility] Address [address] [place] [address] Care Team Providers Care Bobbin Cleaner Name Role Phone Unavailable Primary Care Provider Unavailabl e Reason for Visit * Reason Comments Med Refill Encounter Details Date Type Department Care Team ([facility] st Contact Info) Description 01/16/2024 Refill Department of Ophthalmology in [place], [place] [address] [place] [address] Suri Izquierdo M.D. [address] [place] [address] Med Refill Social History Tobacco Use Types Packs/Day Years Used Date Smoking Tobacco: Every Day Cigarettes Smokeless Tobacco: Never [facility] Utilities Answer Date Recorded In the past 12 months has [facility] electric, gas, oil, or water [...] PM CDT Legal Sex Male 4:05 PM CORPORATE DEVELOPMENT INTERN Gender Identity Male 07/25/2023 8:23 PM CDT Sexual Orientation Straight 07/25/2023 8: 23 PM CDT documented as of this encounter Plan of Treatment Upcoming Encounters Date Type Department Care Team (Latest Contact Info) Description 02/26/2024 1:00 PM CORPORATE DEVELOPMENT INTERN Ancillary Procedure Department of Ophthalmology in [place], [place] [address] [place] [address] Suri Izquierdo M.D. 200 [place] [address] 02/26/2024 1:30 PM CORPORATE DEVELOPMENT INTERN Ancillary Procedure Department of Ophthalmology in [place], [place] [address] [place] [address] 02/26/2024 2:00 PM CORPORATE DEVELOPMENT INTERN Ancillary Procedure Department of Ophthalmology in [place], [place] [address] [place] [address] Suri Izquierdo M.D. [address] [place] [phone] 02/26/2024 2:15 PM CORPORATE DEVELOPMENT INTERN Ancillary Procedure Department of Ophthalmology in [place], [place] [address] [place] [address] Suri Izquierdo M.D. [address] [place] [address] 03/21/2024 12:20 PM CORPORATE DEVELOPMENT INTERN Appointment Outpatient Procedure Center in [address] [address] Suri Izquierdo M.D. [address] [place] [address] documented as of this encounter Visit Diagnoses Not on filedocumented in this encounter
--- OUTSIDE RECORDS SUMMARY | 2024-02-14 10:04 | XMS_ITS | Encounter Summary ---
Author Organization [facility] Address [address] [place] [address] Care Team Providers Care Wood Drilling Machine Operator Name Role Phone Unavailable Primary Care Provider Unavailabl e Reason for Referral * Outpatient (Routine) - Authorized Specialty Diagnoses / Procedures Referred By Janeth phillips Referred To Contact Diagnoses Glaucoma Neovascular Procedures Intravitreal Injection, Pharmacologic Agent - OS - Left Eye Suri Izquierdo M.D. [address] [place] [address] Phone: tel: fax: [facility] Region Referral ID Status Reason Start Date Expiration Date V isits Requested Visits Authorized [id number] Authorized 10/19/2023 10/18/2024 5 5 Reason for Visit * Outpatient (Routine) - Authorized Specialty Diagnoses / Procedures Referred By Janeth phillips Referred To Contact Diagnoses Glaucoma Neovascular Procedures Intravitreal Injection, Pharmacologic Agent - OS - Left Eye Suri Izquierdo M.D. [address] [place] [address] Phone: tel: [facility] Region Referral ID Status Reason Start Date Expiration Date V isits Requested Visits Authorized [id number] Authorized 10/19/2023 10/18/2024 5 5 Encounter Details Date Type Department Care Team (Latest Contact Info) Description 01/24/2024 7:59 AM CDT - 01/24/2024 11:59 PM CDT Hospital Encounter Outpatient Procedure Center in [address] [address] Suri Izquierdo M.D. [address] [place] [address] Glaucoma Neovascular Discharge Disposition: Home or Self Care Social History Tobacco Use Types Packs/Day Years Used Date Smoking Tobacco: Every Day Cigarettes Smokeless Tobacco: Never [facility] Utilities Answer Date Recorded In the past [...] your living situation today? I have a [facility] place to live 07/25/2023 Sex and Gender Information Value Date Recorded Sex Assigned at Male 07/25/2023 8:23 PM CDT Legal Sex Male 4:05 PM COMIC WRITER Gender Identity Male 07/25/2023 8:23 PM CDT [...] (Latest Contact Info) Description 02/26/2024 1:00 PM COMIC WRITER Ancillary Procedure Department of Ophthalmology in [place], [place] [address] [place] [phone] Suri Izquierdo M.D. [address] [place] [phone] 02/26/2024 1:30 PM COMIC WRITER Ancillary Procedure Department of Ophthalmology in [place], [place] [address] [place] [phone] 02/26/2024 2:00 PM COMIC WRITER Ancillary Procedure Department of Ophthalmology in [place], [place] [address] [place] [phone] Suri Izquierdo M.D. [address] [place] [phone] 02/26/2024 2:15 PM COMIC WRITER Ancillary Procedure Department of Ophthalmology in [place], [place] [address] [place] [phone] Suri Izquierdo M.D. [address] [place] [phone] 03/21/2024 12:20 PM COMIC WRITER Appointment Outpatient Procedure Center in [address] [phone] Suri Izquierdo M.D. [address] [place] [phone] documented as of this encounter Procedures Procedure [...] intravitreal, Site: Left Eye ??[facility]: [id number], Lot: [id number], Expiration date: 04/07/2024 Balanced salt solution irrigation [...] fingers. Avastin, LEFT eye. [facility] [id number] LOT [id number] EXP +subconj LIDO - helped greatly - [...]
--- OUTSIDE RECORDS SUMMARY | 2024-02-14 10:04 | XMS_ITS | Encounter Summary ---
Author Organization [facility] Address [address] [place] [address] Care Team Providers Care Manager Building Name Role Phone Unavailable Primary Care Provider Unavailabl e Encounter Details Date Type Department Care Team (Latest Contact Info) Description 01/09/2024 Clinical Communication Department of Ophthalmology in [place], [place] [address] [place] [address] Doc Ferris M.D. [address] [place] [address] Social History Tobacco Use Types Packs/Day Years Used Date Smoking Tobacco: Every Day Cigarettes Smokeless Tobacco: Never [facility] Utilities Answer Date Recorded In the [...] CDT Legal Sex Male 4:05 PM MEDICAL RECORD RETRIEVAL SPECIALIST Gender Identity Male 07/25/2023 8:23 PM CDT Sexual Orientation Straight 07/25/2023 8: 23 PM CDT documented as of this encounter Plan of Treatment Upcoming Encounters Date Type Department Care Team (Latest Contact Info) Description 02/26/2024 1:00 PM MEDICAL RECORD RETRIEVAL SPECIALIST Ancillary Procedure Department of Ophthalmology in [place], [place] [address] [place] [address] Suri Izquierdo M.D. [address] [place] [address] 02/26/2024 1:30 PM MEDICAL RECORD RETRIEVAL SPECIALIST Ancillary Procedure Department of Ophthalmology in [place], [place] [address] [place] [address] 02/26/2024 2:00 PM MEDICAL RECORD RETRIEVAL SPECIALIST Ancillary Procedure Department of Ophthalmology in [place], [place] [address] [place] [address] Suri Izquierdo M.D. [address] [place] [phone] 02/26/2024 2:15 PM MEDICAL RECORD RETRIEVAL SPECIALIST Ancillary Procedure Department of Ophthalmology in [place], [place] [address] [place] [address] Suri Izquierdo M.D. [address] [place] [address] 03/21/2024 12:20 PM MEDICAL RECORD RETRIEVAL SPECIALIST Appointment Outpatient Procedure Center in [address] [address] Suri Izquierdo M.D. [address] [place] [address] documented as of this encounter Visit Diagnoses Not on filedocumented in this encounter
--- OUTSIDE RECORDS SUMMARY | 2024-02-14 10:04 | XMS_ITS | Encounter Summary ---
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) Social History Tobacco Use Types Packs/Day Years Used Date Smoking Tobacco: Every Day Cigarettes Smokeless Tobacco: Never [facility] Utilities Answer Date Recorded In the [...] PM CDT Legal Sex Male 4:05 PM DISTRICT PLANT SUPERVISOR Gender Identity Male 07/25/2023 8:23 PM CDT Sexual Orientation Straight 07/25/2023 8: 23 PM CDT documented as of this encounter Plan of Treatment Upcoming Encounters Date Type Department Care Team (Latest Contact Info) Description 02/26/2024 1:00 PM DISTRICT PLANT SUPERVISOR Ancillary Procedure Department of Ophthalmology in [place], [place] 200 [place] [address] Suri Izquierdo M.D. 200 [place] [address] 02/26/2024 1:30 PM DISTRICT PLANT SUPERVISOR Ancillary Procedure Department of Ophthalmology in [place], [place] [address] [place] [address] 02/26/2024 2:00 PM DISTRICT PLANT SUPERVISOR Ancillary Procedure Department of Ophthalmology in [place], [place] [address] [place] [address] Suri Izquierdo M.D. [address] [place] [phone] 02/26/2024 2:15 PM DISTRICT PLANT SUPERVISOR Ancillary Procedure Department of Ophthalmology in [place], [place] [address] [place] [address] Suri Izquierdo M.D. [address] [place] [phone] 03/21/2024 12:20 PM DISTRICT PLANT SUPERVISOR Appointment Outpatient Procedure Center in [address] [phone] Suri Izquierdo M.D. 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
--- OUTSIDE RECORDS SUMMARY | 2024-02-14 10:05 | XMS_ITS | Encounter Summary ---
Author Organization [facility] Address [address] [place] [address] Care Team Providers Care Ambulatory Technologist Name Role Phone Unavailable Primary Care Provider Unavailabl e Reason for Referral * Outpatient (Routine) - Authorized Specialty Diagnoses / Procedures Referred By Janeth phillips Referred To Contact Diagnoses Glaucoma Neovascular Procedures Intravitreal Injection, Pharmacologic Agent - OS - Left Eye Suri Izquierdo M.D. [address] [place] [address] Phone: tel: fax: [facility] Region Referral ID Status Reason Start Date Expiration Date V isits Requested Visits Authorized [id number] Authorized 10/19/2023 10/18/2024 5 5 Reason for Visit * Outpatient (Routine) - Authorized Specialty Diagnoses / Procedures Referred By Janeth phillips Referred To Contact Diagnoses Glaucoma Neovascular Procedures Intravitreal Injection, Pharmacologic Agent - OS - Left Eye Suri Izquierdo M.D. [address] [place] [address] Phone: tel: fax[facility] Region Referral ID Status Reason Start Date Expiration Date V isits Requested Visits Authorized [id number] Authorized 10/19/2023 10/18/2024 5 5 Encounter Details Date Type Department Care Team (Latest Contact Info) Description 12/27/2023 1:01 PM CDT - 12/27/2023 11:59 PM CDT Hospital Encounter Outpatient Procedure Center in [address] [phone] Suri Izquierdo M.D. [address] [place] [address] Glaucoma Neovascular Discharge Disposition: Home or Self Care Social History Tobacco Use Types Packs/Day Years Used Date Smoking Tobacco: Every Day Cigarettes Smokeless Tobacco: Never [facility] Utilities Answer Date Recorded [...] PM CDT Legal Sex Male 4:05 PM SEARCH ENGINEER Gender Identity Male 07/25/2023 8:23 PM [...] (Latest Contact Info) Description 02/26/2024 1:00 PM SEARCH ENGINEER Ancillary Procedure Department of Ophthalmology in [place], [place] [address] [place] [phone] Suri Izquierdo M.D. [address] [place] [phone] 02/26/2024 1:30 PM SEARCH ENGINEER Ancillary Procedure Department of Ophthalmology in [place], [place] [address] [place] [phone] 02/26/2024 2:00 PM SEARCH ENGINEER Ancillary Procedure Department of Ophthalmology in [place], [place] [address] [place] [phone] Suri Izquierdo M.D. [address] [place] [phone] 02/26/2024 2:15 PM SEARCH ENGINEER Ancillary Procedure Department of Ophthalmology in [place], [place] [address] [place] [phone] Suri Izquierdo M.D. [address] [place] [phone] 03/21/2024 12:20 PM SEARCH ENGINEER Appointment Outpatient Procedure Center in [address] [phone] Suri Izquierdo M.D. [address] [place] [phone] (work) documented as of this encounter Procedures [...] motion or count fingers. Avastin, LEFT eye. [facility] [place] 2] 50192-627-16 LOT [id number] EXP 01/19/2024 [place] pain with injection after multiple numbing drops [...]
--- OUTSIDE RECORDS SUMMARY | 2024-02-14 10:05 | XMS_ITS | Encounter Summary ---
Author Organization [facility] Address [address] [place] [address] Care Team Providers Care Sander Machine Name Role Phone Unavailable Primary Care Provider Unavailabl e Reason for Referral * Outpatient (Routine) - Closed Specialty Diagnoses / Procedures Referred By Janeth t Referred To Contact Procedures Tamayo Retinal Photocoagulation - OS - Left Eye Wero Gasca M.D. [address] [place] [address] Phone: tel: fax: [facility] Referral ID Status Reason Start Date Expiration Date Visits Re quested Visits Authorized [id number] Closed 12/13/2023 12/12/2024 1 1 * Outpatient (Routine) - Closed Specialty Diagnoses / Procedures Referred By Janeth phillips Referred To Contact Ophthalmology Wero Gasca M.D. 200 [place] [address] Phone: tel: fax: Doc Ferris M.D. 200 [place] [address] Phone: tel: fax: Referral ID Status Reason Start Date Expiration Date Visits Re quested Visits Authorized [id number] Closed 12/13/2023 06/13/2025 1 1 Reason for Visit * Reason Comments Procedure * Outpatient (Routine) - Closed Specialty Diagnoses / Procedures Referred By Janeth t Referred To Contact Diagnoses Retinal Detachment With Single Break Left Eye Glaucoma Neovascular Procedures Focal Laser - OS - Left Eye Suri Izquierdo M.D. [address] [place] [address] Phone: tel: fax: [facility] Referral ID Status Reason Start Date Expiration Date Visits Re quested Visits Authorized [id number] Closed 12/07/2023 12/06/2024 1 1 Encounter Details Date Type Department Care Team (Latest Contact Info) Description 12/13/2023 10:00 AM CDT Procedure visit Department of Ophthalmology in [place], [place] [address] [place] [phone] Wero Gasca M.D. 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 I have a [facility] place to live 07/25/2023 Sex and Gender Information Value Date Recorded Sex Assigned at Male 07/25/2023 8:23 PM CDT Legal Sex Male 4:05 PM LENS MOLDER Gender Identity Male 07/25/2023 8:23 PM CDT [...] last injection with OCT macula. Injection Location: [place] Hold injection slot in [place]? Left eye documented in this encounter Plan of Treatment Upcoming Encounters Date Type Department Care Team (Latest Contact Info) Description 02/26/2024 1:00 PM LENS MOLDER Ancillary Procedure Department of Ophthalmology in [place], [place] [address] [place] [phone] Suri Izquierdo M.D. [address] [place] [phone] 02/26/2024 1:30 PM LENS MOLDER Ancillary Procedure Department of Ophthalmology in [place], [place] [address] [place] [phone] 02/26/2024 2:00 PM LENS MOLDER Ancillary Procedure Department of Ophthalmology in [place], [place] [address] [place] [phone] Suri Izquierdo M.D. [address] [place] [phone] 02/26/2024 2:15 PM LENS MOLDER Ancillary Procedure Department of Ophthalmology in [place], [place] [address] [place] [phone] Suri Izquierdo M.D. [address] [place] [phone] 03/21/2024 12:20 PM LENS MOLDER Appointment Outpatient Procedure Center in [address] [phone] Suri Izquierdo M.D. [address] [place] [phone] Scheduled Referrals Name Type Priority Associated Diagnoses [...]
--- OUTSIDE RECORDS SUMMARY | 2024-02-14 10:05 | XMS_ITS | Encounter Summary ---
Author Organization [facility] Address [address] [place] [address] Care Team Providers Care Blast Furnace Operator Name Role Phone Unavailable Primary Care Provider Unavailabl e Encounter Details Date Type Department Care Team (Late st Contact Info) Description 11/30/2023 Ancillary Procedure Department of Ophthalmology Social History Tobacco Use Types Packs/Day Years Used Date Smoking Tobacco: Unknown [facility] Utilities Answer Date Recorded In the past 12 months has th e electric, gas, oil, or water [employer] threatened to shut off services in your [...] PM CDT Legal Sex Male 4:05 PM PERPETUAL INVENTORY CLERK Gender Identity Male 07/25/2023 8:23 PM CDT Sexual Orientation Straight 07/25/2023 8: 23 PM CDT documented as of this encounter Plan of Treatment Upcoming Encounters Date Type Department Care Team (Latest Contact Info) Description 02/26/2024 1:00 PM PERPETUAL INVENTORY CLERK Ancillary Procedure Department of Ophthalmology in [place], [place] [address] [place] [address] Suri Izquierdo M.D. [address] [place] [address] 02/26/2024 1:30 PM PERPETUAL INVENTORY CLERK Ancillary Procedure Department of Ophthalmology in [place], [place] [address] [place] [address] 02/26/2024 2:00 PM PERPETUAL INVENTORY CLERK Ancillary Procedure Department of Ophthalmology in [place], [place] [address] [place] [address] Suri Izquierdo M.D. [address] [place] [phone] 02/26/2024 2:15 PM PERPETUAL INVENTORY CLERK Ancillary Procedure Department of Ophthalmology in [place], [place] [address] [place] [address] Suri Izquierdo M.D. [address] [place] [phone] 03/21/2024 12:20 PM PERPETUAL INVENTORY CLERK Appointment Outpatient Procedure Center in [address] [place] [address] Suri Izquierdo M.D. [address] [place] [address] documented as of this encounter Procedures Procedure Name Priority Date/Time Associated Diagnosis Comments OPHTHALMOLOGY IMAGE EXAM Routine 11/30/2023 12:00 AM CDT documented in this encounter Results * Video-Eyes US-Eye [id number] Image Exam (11/30/2023 12:00 AM CDT) Narrative [...]
--- OUTSIDE RECORDS SUMMARY | 2024-02-14 10:05 | XMS_ITS | Encounter Summary ---
Author Organization [facility] Address [address] [place] [address] Care Team Providers Care Loan Collector Name Role Phone Unavailable Primary Care Provider Unavailabl e Encounter Details Date Type Department Care Team (Latest Contact Info) Description 10/19/2023 Clinical Communication Department of Ophthalmology in [place], [place] [address] [place] [address] Suri Izquierdo M.D. [address] [place] [address] Social History Tobacco Use Types Packs/Day Years [...] living situation today? I have a [facility] place to live 07/25/2023 Sex and Gender Information Value Date Recorded Sex Assigned at Male 07/25/2023 8:23 PM CDT Legal Sex Male 4:05 PM GARAGE CONSTRUCTION EQUIPMENT MECHANIC Gender Identity Male 07/25/2023 8:23 PM CDT Sexual Orientation Straight 07/25/2023 8: 23 PM CDT documented as of this encounter Plan of Treatment Upcoming Encounters Date Type Department Care Team (Latest Contact Info) Description 02/26/2024 1:00 PM GARAGE CONSTRUCTION EQUIPMENT MECHANIC Ancillary Procedure Department of Ophthalmology in [place], [place] [address] [place] [address] Suri Izquierdo M.D. [address] [place] [address] 02/26/2024 1:30 PM GARAGE CONSTRUCTION EQUIPMENT MECHANIC Ancillary Procedure Department of Ophthalmology in [place], [place] [address] [place] [address] 02/26/2024 2:00 PM GARAGE CONSTRUCTION EQUIPMENT MECHANIC Ancillary Procedure Department of Ophthalmology in [place], [place] [address] [place] [address] Suri Izquierdo M.D. [address] [place] [phone] 02/26/2024 2:15 PM GARAGE CONSTRUCTION EQUIPMENT MECHANIC Ancillary Procedure Department of Ophthalmology in [place], [place] [address] [place] [address] Suri Izquierdo M.D. [address] [place] [address] 03/21/2024 12:20 PM GARAGE CONSTRUCTION EQUIPMENT MECHANIC Appointment Outpatient Procedure Center in [address] [phone] Suri Izquierdo M.D. [address] [place] [address] documented as of this encounter Visit Diagnoses Not on filedocumented in this encounter
--- OUTSIDE RECORDS SUMMARY | 2024-02-14 10:05 | XMS_ITS | Encounter Summary ---
Author Organization [facility] Address [address] [place] [address] Care Team Providers Care Eyelet Riveter Name Role Phone Unavailable Primary Care Provider Unavailabl e Reason for Referral * Outpatient (Routine) - Closed Specialty Diagnoses / Procedures Referred By Janeth t Referred To Contact Diagnoses Retinal Detachment With Single Break Left Eye Glaucoma Neovascular Procedures Focal Laser - OS - Left Eye Suri Izquierdo M.D. [address] [place] [phone] Phone: tel: fax: [facility] Referral ID Status Reason Start Date Expiration Date Visits Re quested Visits Authorized [id number] Closed 12/07/2023 12/06/2024 1 1 Encounter Details Date Type Department Care Team (Late st Contact Info) Description 12/07/2023 Documentation Department of Ophthalmology in [place], [place] [address] [place] [phone] Suri Izquierdo M.D. [address] [place] [phone] Social History Tobacco Use Types Packs/Day Years [...] PM CDT Legal Sex Male 4:05 PM MAINS AND SERVICE SUPERVISOR Gender Identity Male 07/25/2023 8:23 PM [...] within the next week. Discussed with front office associate, who will schedule this. Discussed with Dr. Ferris. documented in this encounter Plan of Treatment Upcoming Encounters Date Type Department Care Team (Latest Contact Info) Description 02/26/2024 1:00 PM MAINS AND SERVICE SUPERVISOR Ancillary Procedure Department of Ophthalmology in [place], [place] [address] [place] [phone] Suri Izquierdo M.D. [address] [place] [phone] 02/26/2024 1:30 PM MAINS AND SERVICE SUPERVISOR Ancillary Procedure Department of Ophthalmology in [place], [place] [address] [place] [phone] 02/26/2024 2:00 PM MAINS AND SERVICE SUPERVISOR Ancillary Procedure Department of Ophthalmology in [place], [place] [address] [place] [phone] Suri Izquierdo M.D. [address] [place] [phone] 02/26/2024 2:15 PM MAINS AND SERVICE SUPERVISOR Ancillary Procedure Department of Ophthalmology in [place], [place] [address] [place] [phone] Suri Izquierdo M.D. [address] [place] [phone] 03/21/2024 12:20 PM MAINS AND SERVICE SUPERVISOR Appointment Outpatient Procedure Center in [address] [address] Suri Izquierdo M.D. 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
--- OUTSIDE RECORDS SUMMARY | 2024-02-14 10:05 | XMS_ITS | Encounter Summary ---
Author Organization [facility] Address [address] [place] [address] Care Team Providers Care Bridal Stylist Sales Consultant Name Role Phone Unavailable Primary Care Provider Unavailabl e Encounter Details Date Type Department Care Team (Latest Contact Info) Description 12/07/2023 Clinical Communication Department of Ophthalmology in [place], [place] [address] [place] [address] Carl Petty Social History Tobacco Use Types Packs/Day Years Used Date Smoking Tobacco: Unknown [facility] Utilities Answer Date Recorded In [...] PM CDT Legal Sex Male 4:05 PM ROLL CLAMP OPERATOR Gender Identity Male 07/25/2023 8:23 PM CDT Sexual Orientation Straight 07/25/2023 8: 23 PM CDT documented as of this encounter Plan of Treatment Upcoming Encounters Date Type Department Care Team (Latest Contact Info) Description 02/26/2024 1:00 PM ROLL CLAMP OPERATOR Ancillary Procedure Department of Ophthalmology in [place], [place] [address] [place] [address] Suri Izquierdo M.D. [address] [place] [address] 02/26/2024 1:30 PM ROLL CLAMP OPERATOR Ancillary Procedure Department of Ophthalmology in [place], [place] [address] [place] [address] 02/26/2024 2:00 PM ROLL CLAMP OPERATOR Ancillary Procedure Department of Ophthalmology in [place], [place] [address] [place] [address] Suri Izquierdo M.D. [address] [place] [phone] 02/26/2024 2:15 PM ROLL CLAMP OPERATOR Ancillary Procedure Department of Ophthalmology in [place], [place] [address] [place] [address] Suri Izquierdo M.D. [address] [place] [address] 03/21/2024 12:20 PM ROLL CLAMP OPERATOR Appointment Outpatient Procedure Center in [address] [phone] Suri Izquierdo M.D. [address] [place] [phone] documented as of this encounter Visit Diagnoses Not on filedocumented in this encounter
--- OUTSIDE RECORDS SUMMARY | 2024-02-14 10:05 | XMS_ITS | Encounter Summary ---
Author Organization [facility] Address [address] [place] [address] Care Team Providers Care Caterer Helper Name Role Phone Unavailable Primary Care Provider Unavailabl e Reason for Referral * Outpatient (Routine) - Authorized Specialty Diagnoses / Procedures Referred By Janeth phillips Referred To Contact Diagnoses Glaucoma Neovascular Procedures Intravitreal Injection, Pharmacologic Agent - OS - Left Eye Suri Izquierdo M.D. [address] [place] [address] Phone: tel: fax: [facility] Region Referral ID Status Reason Start Date Expiration Date V isits Requested Visits Authorized [id number] Authorized 10/19/2023 10/18/2024 5 5 Reason for Visit * Outpatient (Routine) - Authorized Specialty Diagnoses / Procedures Referred By Janeth phillips Referred To Contact Diagnoses Glaucoma Neovascular Procedures Intravitreal Injection, Pharmacologic Agent - OS - Left Eye Suri Izquierdo M.D. [address] [place] [address] Phone: tel: [facility] Region Referral ID Status Reason Start Date Expiration Date V isits Requested Visits Authorized [id number] Authorized 10/19/2023 10/18/2024 5 5 Encounter Details Date Type Department Care Team (Latest Contact Info) Description 11/22/2023 9:02 AM CDT - 11/22/2023 11:59 PM CDT Hospital Encounter Outpatient Procedure Center in [address] [phone] Suri Izquierdo M.D. [address] [place] [address] Glaucoma Neovascular Discharge Disposition: Home or Self [...] PM CDT Legal Sex Male 4:05 PM SUPERINTENDENT PLANT Gender Identity Male 07/25/2023 8:23 PM CDT [...] (Latest Contact Info) Description 02/26/2024 1:00 PM SUPERINTENDENT PLANT Ancillary Procedure Department of Ophthalmology in [place], [place] [address] [place] [phone] Suri Izquierdo M.D. [address] [place] [phone] 02/26/2024 1:30 PM SUPERINTENDENT PLANT Ancillary Procedure Department of Ophthalmology in [place], [place] [address] [place] [phone] 02/26/2024 2:00 PM SUPERINTENDENT PLANT Ancillary Procedure Department of Ophthalmology in [place], [place] [address] [place] [phone] Suri Izquierdo M.D. [address] [place] [phone] 02/26/2024 2:15 PM SUPERINTENDENT PLANT Ancillary Procedure Department of Ophthalmology in [place], [place] [address] [place] [phone] Suri Izquierdo M.D. [address] [place] [phone] 03/21/2024 12:20 PM SUPERINTENDENT PLANT Appointment Outpatient Procedure Center in [address] [phone] Suri Izquierdo M.D. [address] [place] [phone] documented as of this encounter Procedures Procedure [...] mg/mL ??Route: intravitreal, Site: Left Eye ??[facility]: 41299-379-01 Balanced salt solution irrigation to injected eye [...] or count fingers. Avastin, LEFT eye. [facility] 89969-779-09 LOT [id number] EXP 01/06/2024 First injection in [place]. ??Poor [...]
--- OUTSIDE RECORDS SUMMARY | 2024-02-14 10:05 | XMS_ITS | Encounter Summary ---
Author Organization [facility] Address [address] [place] [address] Care Team Providers Care Air Chief Marshal Name Role Phone Unavailable Primary Care Provider Unavailabl e Encounter Details Date Type Department Care Team (Latest Contact Info) Description 12/07/2023 Clinical Communication Department of Ophthalmology in [place], [place] [address] [place] [address] Suri Izquierdo M.D. [address] [place] [address] Social History Tobacco Use Types Packs/Day Years Used Date Smoking Tobacco: Unknown [facility] Utilities Answer Date Recorded In the [...] PM CDT Legal Sex Male 4:05 PM MODULAR SET CREW MEMBER Gender Identity Male 07/25/2023 8:23 PM CDT Sexual Orientation Straight 07/25/2023 8: 23 PM CDT documented as of this encounter Plan of Treatment Upcoming Encounters Date Type Department Care Team (Latest Contact Info) Description 02/26/2024 1:00 PM MODULAR SET CREW MEMBER Ancillary Procedure Department of Ophthalmology in [place], [place] [address] [place] [address] Suri Izquierdo M.D. [address] [place] [address] 02/26/2024 1:30 PM MODULAR SET CREW MEMBER Ancillary Procedure Department of Ophthalmology in [place], [place] [address] [place] [address] 02/26/2024 2:00 PM MODULAR SET CREW MEMBER Ancillary Procedure Department of Ophthalmology in [place], [place] [address] [place] [address] Suri Izquierdo M.D. [address] [place] [phone] 02/26/2024 2:15 PM MODULAR SET CREW MEMBER Ancillary Procedure Department of Ophthalmology in [place], [place] [address] [place] [address] Suri Izquierdo M.D. [address] [place] [address] 03/21/2024 12:20 PM MODULAR SET CREW MEMBER Appointment Outpatient Procedure Center in [address] [phone] Suri Izquierdo M.D. [address] [place] [address] documented as of this encounter Visit Diagnoses Not on filedocumented in this encounter
--- OUTSIDE RECORDS SUMMARY | 2024-02-14 10:05 | XMS_ITS | Encounter Summary ---
Author Organization [facility] Address [address] [place] [address] Care Team Providers Care Radio Division Lieutenant Name Role Phone Unavailable Primary Care Provider Unavailabl e Encounter Details Date Type Department Care Team (Latest Contact Info) Description 10/18/2023 Clinical Communication Department of Ophthalmology in [place], [place] [address] [place] [address] Provider, Unknown Social History Tobacco Use Types Packs/Day Years Used Date Smoking Tobacco: Unknown [facility] Utilities Answer Date Recorded In the past 12 months has [facility] electric, gas, oil, or water company [...] PM CDT Legal Sex Male 4:05 PM MIXER MACHINE FEEDER Gender Identity Male 07/25/2023 8:23 PM CDT Sexual Orientation Straight 07/25/2023 8: 23 PM CDT documented as of this encounter Plan of Treatment Upcoming Encounters Date Type Department Care Team (Latest Contact Info) Description 02/26/2024 1:00 PM MIXER MACHINE FEEDER Ancillary Procedure Department of Ophthalmology in [place], [place] [address] [place] [address] Suri Izquierdo M.D. [address] [place] [phone] 02/26/2024 1:30 PM MIXER MACHINE FEEDER Ancillary Procedure Department of Ophthalmology in [place], [place] [address] [place] [address] 02/26/2024 2:00 PM MIXER MACHINE FEEDER Ancillary Procedure Department of Ophthalmology in [place], [place] [address] [place] [address] Suri Izquierdo M.D. [address] [place] [phone] 02/26/2024 2:15 PM MIXER MACHINE FEEDER Ancillary Procedure Department of Ophthalmology in [place], [place] [address] [place] [address] Suri Izquierdo M.D. [address] [place] [phone] 03/21/2024 12:20 PM MIXER MACHINE FEEDER Appointment Outpatient Procedure Center in [address] [phone] Suri Izquierdo M.D. [address] [place] [address] documented as of this encounter Visit Diagnoses Not on filedocumented in this encounter
--- OUTSIDE RECORDS SUMMARY | 2024-02-14 10:05 | XMS_ITS | Encounter Summary ---
Author Organization [facility] Address [address] [place] [address] Care Team Providers Care Real Estate Branch Manager Name Role Phone Unavailable Primary Care Provider Unavailabl e Encounter Details Date Type Department Care Team (Late st Contact Info) Description 11/30/2023 12:05 AM CDT Ancillary Procedure Department of Ophthalmology Social History Tobacco Use Types Packs/Day Years Used Date Smoking Tobacco: Unknown [facility] Utilities Answer Date Recorded In [...] PM CDT Legal Sex Male 4:05 PM UTILITY MECHANIC Gender Identity Male 07/25/2023 8:23 PM CDT Sexual Orientation Straight 07/25/2023 8: 23 PM CDT documented as of this encounter Plan of Treatment Upcoming Encounters Date Type Department Care Team (Latest Contact Info) Description 02/26/2024 1:00 PM UTILITY MECHANIC Ancillary Procedure Department of Ophthalmology in [place], [place] [address] [place] [address] Suri Izquierdo M.D. [address] [place] [phone] 02/26/2024 1:30 PM UTILITY MECHANIC Ancillary Procedure Department of Ophthalmology in [place], [place] [address] [place] [address] 02/26/2024 2:00 PM UTILITY MECHANIC Ancillary Procedure Department of Ophthalmology in [place], [place] [address] [place] [address] Suri Izquierdo M.D. [address] [place] [phone] 02/26/2024 2:15 PM UTILITY MECHANIC Ancillary Procedure Department of Ophthalmology in [place], [place] [address] [place] [address] Suri Izquierdo M.D. [address] [place] [phone] 03/21/2024 12:20 PM UTILITY MECHANIC Appointment Outpatient Procedure Center in [address] [address] Suri Izquierdo M.D. [address] [place] [address] documented as of this encounter Procedures Procedure Name Priority Date/Time Associated Diagnosis Comments OPHTHALMOLOGY IMAGE EXAM Routine 11/30/2023 12:05 AM CDT documented in this encounter Results * Eyes US-Eye O-Plnh-Nqqalyppckefb Image Exam (11/30/2023 12:05 AM CDT) Narrative [...]
--- OUTSIDE RECORDS SUMMARY | 2024-02-14 10:05 | XMS_ITS | Encounter Summary ---
Author Organization [facility] Address [address] [place] [address] Care Team Providers Care Control Director Name Role Phone Unavailable Primary Care Provider Unavailabl e Encounter Details Date Type Department Care Team (Latest Contact Info) Description 10/16/2023 Clinical Communication Department of Ophthalmology in [place] [address] [place] [address] Red Gallego M.D. [address] [place] [phone] Social History Tobacco Use Types Packs/Day Years Used Date Smoking Tobacco: Unknown [facility] Utilities Answer Date Recorded In the past 12 months has [facility] electric, gas, oil, or water [...] PM CDT Legal Sex Male 4:05 PM STRAP MACHINE OPERATOR Gender Identity Male 07/25/2023 8:23 PM CDT Sexual Orientation Straight 07/25/2023 8: 23 PM CDT documented as of this encounter Plan of Treatment Upcoming Encounters Date Type Department Care Team (Latest Contact Info) Description 02/26/2024 1:00 PM STRAP MACHINE OPERATOR Ancillary Procedure Department of Ophthalmology in [place], [place] [address] [place] [address] Suri Izquierdo M.D. [address] [place] [address] 02/26/2024 1:30 PM STRAP MACHINE OPERATOR Ancillary Procedure Department of Ophthalmology in [place], [place] [address] [place] [address] 02/26/2024 2:00 PM STRAP MACHINE OPERATOR Ancillary Procedure Department of Ophthalmology in [place], [place] [address] [place] [address] Suri Izquierdo M.D. [address] [place] [phone] 02/26/2024 2:15 PM STRAP MACHINE OPERATOR Ancillary Procedure Department of Ophthalmology in [place], [place] [address] [place] [address] Suri Izquierdo M.D. [address] [place] [address] 03/21/2024 12:20 PM STRAP MACHINE OPERATOR Appointment Outpatient Procedure Center in [address] [address] Suri Izquierdo M.D. [address] [place] [address] documented as of this encounter Visit Diagnoses Not on filedocumented in this encounter
--- OUTSIDE RECORDS SUMMARY | 2024-02-14 10:05 | XMS_ITS | Clinical Summary ---
Author Organization [facility] Address [place], [place] [address] Care Team Providers Care Director Blood Bank Name Role Phone Marcio Gonzalez MD Primary Care Provider [phone] Allergies Active Allergy Reactions Criticality Noted Date [...] LEGS AND FEET ONCE DAILY. 10/19/2022 Active BiPapIndications:Obs tructive sleep apnea bPAP machine [...] times daily. Active apixaban (ELIQUIS) 5 mg tabletIndications:Pa roxysmal [...] 3 11/13/2023 Active mirtazapine (REMERON) 7.5 mg tabletIndications:Ch ronic insomnia Take 1 Tablet (7.5 mg) by mouth at bedtime. Please take at 7PM 60 Tablet 11/15/2023 Active fluticasone hxo-mmdxestthvfc-zim anterol (Trelegy Ellipta) 100-62.5-25 mcg inhalerIndications:P anlobular [...] chloride (Klor-Con M20) 20 mEq extended-release tablet (part/cryst)Indicati ons:Edema of right lower extremity Take 1 Tablet (20 mEq) by mouth two times daily with meals. 180 Tablet 3 01/01/2024 Active atorvastatin (LIPITOR) 40 mg tabletIndications:Ot her hyperlipidemia Take 1 Tablet (40 mg) by mouth at bedtime. 90 Tablet 3 01/01/2024 Active traMADoL (ULTRAM) 50 mg tabletIndications:Ri ght leg pain TAKE 1 TABLET BY MOUTH DAILY NEEDED FOR WOUND PAIN OR BACK PAIN 40 Tablet 01/01/2024 Active magnesium oxide (MAG-OX 400) 400 mg tabletIndications:Lo w magnesium level Take 1 Tablet (400 mg) by mouth once daily. 90 Tablet 3 01/01/2024 Active furosemide (LASIX) 20 mg tabletIndications:Ed rosa elena of right lower extremity Take 1 Tablet (20 mg) by mouth two times daily. 180 Tablet 3 01/01/2024 Active Active Problems Problem Noted Date Diagnosed [...] clinic today. He had [facility] [place] [facility] [place] with difficulty finding words and [...] Finding Difficulties Recommended follow up at [facility]. Speech therapy, OT, and PHYSICAL [...] Problem Noted Date Diagnosed Date Resolved Date rn long term care (current) use of anticoagulants 07/07/2009 09/21/2010 Overview (07/27/2009): INR Goal Range: 1.8 - 2.5 Encounters Date Type Department Care Team Description 01/21/2024 8:15 AM CDT Orders Only [place] [address] [place] [address] Lab, [place] [facility] 01/21/2024 Travel 01/14/2024 Refill [facility] [address] [place] [address] [address] Marcio Gonzalez MD Refill Request (Tramadol ) 01/03/2024 Orders Only [facility] [address] [place] [address] [address] Marcio Gonzalez MD <No scans attached> 01/01/2024 10:00 AM CDT Office Visit [facility] [address] [place] [address] Marcio Gonzalez MD Medicare ANNUAL (subsequent) Visit (78 years) 01/01/2024 Travel 12/18/2023 Refill [facility] [address] [place] [address] Marcio Gonzalez MD Refill Request (Tramadol) 12/04/2023 3:30 PM CDT Office Visit [facility] [address] [place] [address] Ricarda Bautista MD Follow Up (F/U visit/OV,FU CT on chart from [place] no new imaging/PT states feeling alright/Losing sight in eye - might be blockage of artery /Stated all medications are up to date) 12/04/2023 Travel 11/22/2023 [place]phone [facility] [address] [place], [place] [phone] Ricarda Bautista MD Appointment Request from Last 3 Months Immunizations Name Administration [...] Date Smoking Tobacco: Every Day Cigarettes 1 60.8 Started: 1963; Last attempted to quit: 07/30/2023 Smokeless Tobacco: Never Tobacco Cessation:Ready to Q uit: No; Counseling Given: No Comments:15-20 cigarettes a day- updated 11/13/2023 Alcohol Use Standard Drinks/Week Comments Yes 14 (1 standard drink = 0.6 oz pu re alcohol) 2 beers a day PHQ-2 Answer Date Recorded PHQ-2 TOTAL SCORE 2 01/01/2024 Social Connections Answer Date Recorded Do you often feel lonely or isolated from those around you? 0 07/27/2023 Alcohol Use Answer Date Recorded [...] 07/27/2023 Transportation Needs Answer Date Record ed Does lack of transportation keep you from medica l appointments? 1 07/27/2023 Does lack of transportation keep you from work, meetings or getting things that you need? 1 07/27/2023 Housing Stability Answer Date Recorded [...] Respiratory Rate 18 05/02/2023 10:5 7 AM SUPERVISOR CHAR HOUSE Oxygen Saturation 91% 01/01/2024 10: 15 AM [...] Completed 02/08/2022 Medical Devices Implanted Type Area Primary Montessori Teacher Device Identifier Shelf Expiration Date Model / Serial / Lot Tissue Pericardium 0.8x8cm Photofix Bovine - [id number] Implanted:Qty: 1 on 02/13/2022 by Kael Hernandez MD at [facility] Cv Implants Right: Groin [employer] 02/27/2022 PFP 0.8X8 / / [id number] Stent Aaa [id number] Excluder Ibc - [id number] Implanted:Qty: 1 on 02/13/2022 by Kael Hernandez MD at [facility] Right: Iliac Artery [employer] 2024 [id number] / [id number] / Stent Aaa [id number] Excluder Iic - [id number] Implanted:Qty: 1 on 02/13/2022 by Kael Hernandez MD at [facility] Right: Iliac Artery [employer] 04/20/2024 [id number] / [id number] / Procedures Procedure Name Priority Date/Time Associated [...] Routine 01/01/2024 11:23 AM CDT Other hyperlipidemia ANTI HCV Routine 02/08/2022 11:20 AM CDT [...] is included. CHOLESTEROL, TOTAL 104 <200 mg/dL [facility] HDL CHOLESTEROL 28(L) > OR = 40 mg/dL [facility] TRIGLYCERIDES 125 <150 mg/dL [facility] LDL-CHOLESTEROL 55 mg/dL (calc) [facility] Comment: Reference range: <100 Desirable range <100 mg/dL for primary prevention; ?? <70 mg/dL for patients with CHD or diabetic patients with > or = 2 CHD risk factors. LDL-C is now calculated using the Hector-Nevin calculation, which is a validated novel method providing better accuracy than the Friedewald equation in the estimation of LDL-C. Hector WICK et al. ISHMAEL. 2013;310(19): 5853-2560 (http://education.Neighbortree.com/faq/SNH191) CHOL/HDLC RATIO 3.7 <5.0 (calc) [facility] NON HDL CHOLESTEROL 76 <130 mg/dL (calc) [facility] Comment: For patients with diabetes plus 1 major ASCVD risk factor, treating to a non-HDL-C goal of <100 mg/dL (LDL-C of <70 mg/dL) is considered a therapeutic option. Blood BLOOD SPECIMEN / Unknown 01/21/2024 8:26 AM CDT 01/21/2024 8:27 AM CDT Marcio Gonzalez MD CHEMISTRY [employer] [facility] [address] [place] [address], [facility] [address] [place] [address] * (ABNORMAL) CBC AND DIFFERENTIAL (01/21/2024 8:26 AM CDT) WHITE BLOOD CELL COUNT 7.9 3.8 - 10.8 Thousand/u L [facility] RED BLOOD CELL COUNT 3.55(L) 4.20 - 5.80 Million/uL [facility] HEMOGLOBIN 11.0(L) 13.2 - 17.1 g/dL [facility] [...] 8:27 AM CDT Marcio Gonzalez MD HEMATOLOGY Performing Organization Address [facility]/ZIP Co de Phone Number [employer] [facility] [address] [place] [address], [facility] [address] [place] [address] * ALT (SGPT) (01/21/2024 8:26 AM CDT) Pathologist [facility] ALT 19 9 - 46 U/L [facility] Blood BLOOD SPECIMEN / Unknown 01/21/2024 8:26 AM CDT 01/21/2024 8:27 AM CDT Marcio Gonzalez MD CHEMISTRY Performing Organization Address [facility]/ZIP Co de Phone Number [employer] [facility] [address] [place] [address], [place] [phone] [facility] [address] [place] [address] * (ABNORMAL) BASIC METABOLIC PANEL (01/21/2024 8:26 AM CDT) Only the most recent of2 resultswithin the time period is included. GLUCOSE 107(H) 65 - 99 mg/dL [facility] Comment: ? Fasting reference interval For someone without known diabetes, a glucose value between 100 and 125 mg/dL is consistent with prediabetes and should be confirmed with a follow-up test. UREA NITROGEN (BUN) 12 7 - 25 mg/dL [facility] CREATININE 1.03 0.70 - 1.28 mg/dL [facility] EGFR 74 > OR = 60 mL/min/1. 73m2 [facility] BUN/CREATININE RATIO SEE NOTE: 6 - 22 (calc) [facility] Comment: ?? Not Reported: BUN and Creatinine are within ?? reference range. ? SODIUM 138 135 - 146 mmol/L [facility] [facility] POTASSIUM 4.2 3.5 - 5.3 mmol/L [facility] CHLORIDE 99 98 - 110 mmol/L [employer] [facility] CARBON DIOXIDE 33(H) 20 - 32 mmol/L [employer] ELECTROLYTE BALANCE 6(L) 7 - 17 mmol/L (calc) [employer] [facility] CALCIUM 9.4 8.6 - 10.3 mg/dL [employer] [facility] Blood BLOOD SPECIMEN / Unknown 01/21/2024 8:26 AM CDT 01/21/2024 8:27 AM CDT Marcio Gonzalez MD CHEMISTRY [employer] [facility] [address] [place] [address], [facility] [address] [place] [address] * (ABNORMAL) PSA (TOTAL) ([facility]) (01/01/2024 11:25 AM CDT) PSA, TOTAL 5.16(H) < OR = 4.00 ng/mL [facility] Comment: The total PSA value from this assay system is standardized against the WHO standard. The test result will be approximately 20% lower when compared to the equimolar-standardized total PSA (Case [place]). Comparison of serial PSA results should be [...] AM CDT Marcio Gonzalez MD SEND OUTS [employer] [facility] [address] [place] [address], [facility] [address] [place] [address] * (ABNORMAL) HEMOGLOBIN A1C SCREENING (01/01/2024 11:23 AM CDT) HEMOGLOBIN A1C 5.8(H) <5.7 % of total Hgb [facility] Comment: For someone without known diabetes, a [...] ? This test was performed on the Linsdey leland c503 platform. Effective 06/13/23, a change in test platforms from the [employer] Observer to the Lindsey leland c503 may have shifted HbA1c results compared to historical results. Based on laboratory validation testing conducted at [facility], the Lindsey platform relative to the Acosta [...] Marcio Gonzalez MD CHEMISTRY Performing Organization Address City/[facility]/ZIP Co de Phone Number [employer] [facility] [address] [place] [address], [facility] [address] [place] [address] * MAGNESIUM (01/01/2024 11:23 AM CDT) Pathologist [facility] MAGNESIUM 2.0 1.5 - 2.5 mg/dL [facility] Blood BLOOD SPECIMEN / Unknown 01/01/2024 11:23 AM CDT 01/01/2024 11:23 AM CDT Marcio Gonzalez MD CHEMISTRY Performing Organization Address [facility] de Phone Number [employer] [facility] [address] [place] [address], [facility] [address] [place] [address] * ANTI HCV (02/08/2022 11:20 AM CDT) [facility] HEPATITIS C ANTIBODY Non-React mandie Non-React mandie 02/09/2022 2:56 PM CDT [facility] [employer] [facility] Comment:Antibodies to HCV no t detected; does not exclude the possibility of exposure to HCV. Blood BLOOD SPECIMEN / Unknown Venipuncture / Unknown 02/08/2022 11:20 AM CDT 02/08/2022 11:27 AM CDT Marcio Gonzalez MD SEND OUTS Performing Organization Address City/[facility]/ZIP Co de Phone Number [facility] [employer] [facility] [address] [place] [address], [place] * CT CHEST SCREENING LOW DOSE [...] @11/02/2021 8:56:18 AM Pediatric and Body Radiology [email or web address] Narrative 11/02/2021 9:43 AM CDT For [...] Documents on File Type Date Recorded Patient Chorus Master Expl anation Treatment Guidelines 02/11/2022 * Full Code (Latest Code Status on File) Date Activated Date Inactivated Comments 02/13/2022 1:00 PM 02/14/2022 5:39 PM Question Answer Comments Code Status Discussion: Reviewed Preferences * Full Code Date Activated Date Inactivated Comments 02/13/2022 6:05 AM 02/13/2022 12:59 PM Question Answer Comments Code Status Discussion: Unable to Assess Preferences, Provider to review later Care Teams Director Blood Bank Relationship Specialty Start Date End Date Marcio Gonzalez MD [address] [place] [address] PCP - General Family Practice 12/20/15
--- OUTSIDE RECORDS SUMMARY | 2024-02-14 10:05 | XMS_ITS | Encounter Summary ---
Author Organization [facility] Address [address] [place] [address] Care Team Providers Care Marine Propulsion Technician Name Role Phone Unavailable Primary Care Provider Unavailabl e Reason for Referral * Outpatient (Routine) - Closed Specialty Diagnoses / Procedures Referred By Janeth phillips Referred To Contact Ophthalmology Suri Izquierdo M.D. [address] [place] [address] Phone: tel: fax: [facility] Referral ID Status Reason Start Date Expiration Date Visits Re quested Visits Authorized [id number] Closed 11/09/2023 05/10/2025 1 1 Reason for Visit * Outpatient (Routine) - Closed Specialty Diagnoses / Procedures Referred By Janeth phillips Referred To Contact Ophthalmology Suri Izquierdo M.D. [address] [place] [address] Phone: tel: fax: [facility] Referral ID Status Reason Start Date Expiration Date Visits Re quested Visits Authorized [id number] Closed 11/02/2023 05/03/2025 1 1 Encounter Details Date Type Department Care Team (Latest Contact Info) Description 11/09/2023 12:00 PM CDT Office Visit Department of Ophthalmology in [place], [place] [address] [place] [phone] Suri Izquierdo M.D. [address] [place] [address] Hemorrhage Vitreous Left (HCC) (Primary Dx); Glaucoma Neovascular; Occlusion Carotid Artery Left Social History Tobacco Use Types Packs/Day Years Used Date Smoking Tobacco: Unknown [facility] Utilities Answer Date Recorded In the [...] PM CDT Legal Sex Male 4:05 PM KISS SETTER HAND Gender Identity Male 07/25/2023 8:23 PM CDT [...] He is scheduled with neurology here at [place] in December and is seeing his slp early next week. PLAN: - Continue Avastin [...] last injection with OCT macula. Injection Location: [facility] injection slot in [place]? Left eye Injection plan staffed with Dr. Herrera on 10/19/23 Patient discussed and seen with Dr. Benton today, 11/09/23. Suri Izquierdo M.D. PGY-2 Ophthalmology Resident documented in this encounter Plan of Treatment Upcoming Encounters Date Type Department Care Team (Latest Contact Info) Description 02/26/2024 1:00 PM KISS SETTER HAND Ancillary Procedure Department of Ophthalmology in [place], [place] [address] [place] [address] Suri Izquierdo M.D. [address] [place] [phone] 02/26/2024 1:30 PM KISS SETTER HAND Ancillary Procedure Department of Ophthalmology in [place], [place] [address] [place] [phone] 02/26/2024 2:00 PM KISS SETTER HAND Ancillary Procedure Department of Ophthalmology in [place], [place] [address] [place] [phone] Suri Izquierdo M.D. [address] [place] [phone] 02/26/2024 2:15 PM KISS SETTER HAND Ancillary Procedure Department of Ophthalmology in [place], [place] [address] [place] [address] Suri Izquierdo M.D. [address] [place] [phone] 03/21/2024 12:20 PM KISS SETTER HAND Appointment Outpatient Procedure Center in [address] [address] Suri Izquierdo M.D. [address] [place] [address] Scheduled Orders Name Type Priority Associated Diagnoses [...]
--- OUTSIDE RECORDS SUMMARY | 2024-02-14 10:05 | XMS_ITS | Encounter Summary ---
Author Organization [facility] Address [address] [place] [address] Care Team Providers Care Director Of Cath Lab Name Role Phone Unavailable Primary Care Provider Unavailabl e Reason for Visit * Reason Onset Date Comments Pre-visit Intake 2023 Encounter Details Date Type Department Care Team (Latest Contact Info) Description 2023 12:15 PM CDT Clinical Communication Virtual Review in [place], [place] [address] [place] [address] Pre-visit Intake Social History Tobacco Use Types Packs/Day Years Used Date Smoking Tobacco: Every Day Cigarettes Smokeless Tobacco: Never [facility] Utilities Answer Date Recorded In the past [...] your living situation today? [facility] to live 07/25/2023 Sex and Gender Information Value Date Recorded Sex Assigned at Male 07/25/2023 8:23 PM CDT Legal Sex Male 4:05 PM CASH VAN SALESPERSON Gender Identity Male 07/25/2023 8:23 PM CDT Sexual Orientation Straight 07/25/2023 8: 23 PM CDT documented as of this encounter Plan of Treatment Upcoming Encounters Date Type Department Care Team (Latest Contact Info) Description 02/26/2024 1:00 PM CASH VAN SALESPERSON Ancillary Procedure Department of Ophthalmology in [place], [place] [address] [place] [address] Suri Izquierdo M.D. [address] [place] [phone] 02/26/2024 1:30 PM CASH VAN SALESPERSON Ancillary Procedure Department of Ophthalmology in [place], [place] [address] [place] [address] 02/26/2024 2:00 PM CASH VAN SALESPERSON Ancillary Procedure Department of Ophthalmology in [place], [place] [address] [place] [address] Suri Izquierdo M.D. [address] [place] [phone] 02/26/2024 2:15 PM CASH VAN SALESPERSON Ancillary Procedure Department of Ophthalmology in [place], [place] [address] [place] [address] Suri Izquierdo M.D. [address] [place] [address] [place] [address] 03/21/2024 12:20 PM CASH VAN SALESPERSON Appointment Outpatient Procedure Center in [address] [address] Suri Izquierdo M.D. [address] [place] [address] documented as of this encounter Visit Diagnoses Not on filedocumented in this encounter
--- OUTSIDE RECORDS SUMMARY | 2024-02-14 10:05 | XMS_ITS | Encounter Summary ---
Author Organization [facility] Address [address] [place] [address] Care Team Providers Care Refrigerator Car Icer Name Role Phone Unavailable Primary Care Provider Unavailabl e Reason for Visit * Outpatient (Routine) - Closed Specialty Diagnoses / Procedures Referred By Janeth t Referred To Contact Ophthalmology Suri Izquierdo M.D. [address] [place] [phone] Phone: tel: fax: [facility] Referral ID Status Reason Start Date Expiration Date Visits Re quested Visits Authorized [id number] Closed 11/09/2023 05/10/2025 1 1 Encounter Details Date Type Department Care Team (Latest Contact Info) Description 11/30/2023 1:30 PM CDT Office Visit Department of Ophthalmology in [place], [place] [address] [place] [phone] Suri Izquierdo M.D. 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 PLAN: - Pre-operative evaluation [...] last injection with OCT macula. Injection Location: [facility] injection slot in [place]? Left eye Injection plan staffed with Dr. Herrera on 10/19/23 Patient discussed and seen with Dr. Jara and Dr. Ferris today, 11/30/23. Suri Izquierdo M.D. PGY-2 Ophthalmology Resident documented in this encounter Plan of Treatment Upcoming Encounters Date Type Department Care Team (Latest Contact Info) Description 02/26/2024 1:00 PM NIPPING MACHINE OPERATOR Ancillary Procedure Department of Ophthalmology in [place], [place] [address] [place] [phone] Suri Izquierdo M.D. [address] [place] [phone] 02/26/2024 1:30 PM NIPPING MACHINE OPERATOR Ancillary Procedure Department of Ophthalmology in [place], [place] [address] [place] [phone] 02/26/2024 2:00 PM NIPPING MACHINE OPERATOR Ancillary Procedure Department of Ophthalmology in [place], [place] [address] [place] [phone] Suri Izquierdo M.D. [address] [place] [phone] 02/26/2024 2:15 PM NIPPING MACHINE OPERATOR Ancillary Procedure Department of Ophthalmology in [place], [place] [address] [place] [phone] Suri Izquierdo M.D. [address] [place] [phone] 03/21/2024 12:20 PM NIPPING MACHINE OPERATOR Appointment Outpatient Procedure Center in [address] [phone] Suri Izquierdo M.D. 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
--- OUTSIDE RECORDS SUMMARY | 2024-02-14 10:05 | XMS_ITS | Encounter Summary ---
Author Organization [facility] Address [address] [place] [address] Care Team Providers Care Promotion Producer Name Role Phone Unavailable Primary Care Provider Unavailabl e Reason for Visit * Outpatient (Routine) - Closed Specialty Diagnoses / Procedures Referred By Avelinaac t Referred To Contact Neurology Diagnoses Occlusion Carotid Artery Left Ischemia Retina Glaucoma Neovascular Neuropathy Optic Ischemic Bilateral Suri Izquierdo M.D. 200 [place] [address] Phone: tel: fax: [facility] Referral ID Status Reason Start Date Expiration Date Visits Re quested Visits Authorized [id number] Closed 10/23/2023 04/23/2025 1 1 Encounter Details Date Type Department Care Team (Latest Contact Info) Description 12/19/2023 10:00 AM CDT Comprehensive Visit Department of Neurology in [place], [place] [address] [place] [phone] Jojo Barrientos M.D. [address] [place] [phone] Occlusion Carotid Artery Left; Ischemia Retina; Glaucoma Neovascular; Neuropathy Optic Ischemic Bilateral Social History Tobacco Use Types Packs/Day Years Used Date Smoking Tobacco: Every Day Cigarettes Smokeless Tobacco: Never [facility] Utilities Answer Date Recorded In the [...] PM CDT Legal Sex Male 4:05 PM GROUND CONTROL APPROACH TECHNICIAN Gender Identity Male 07/25/2023 8:23 PM CDT [...] (Latest Contact Info) Description 02/26/2024 1:00 PM GROUND CONTROL APPROACH TECHNICIAN Ancillary Procedure Department of Ophthalmology in [place], [place] [address] [place] [phone] Suri Izquierdo M.D. [address] [place] [phone] 02/26/2024 1:30 PM GROUND CONTROL APPROACH TECHNICIAN Ancillary Procedure Department of Ophthalmology in [place], [place] [address] [place] [phone] 02/26/2024 2:00 PM GROUND CONTROL APPROACH TECHNICIAN Ancillary Procedure Department of Ophthalmology in [place], [place] [address] [place] [phone] Suri Izquierdo M.D. [address] [place] [phone] 02/26/2024 2:15 PM GROUND CONTROL APPROACH TECHNICIAN Ancillary Procedure Department of Ophthalmology in [place], [place] [address] [place] [phone] Suri Izquierdo M.D. [address] [place] [phone] 03/21/2024 12:20 PM GROUND CONTROL APPROACH TECHNICIAN Appointment Outpatient Procedure Center in [address] [phone] Suri Izquierdo M.D. [address] [place] [phone] documented as of this encounter Visit Diagnoses Diagnosis Occlusion Carotid Artery Left Ischemia Retina Glaucoma Neovascular Neuropathy Optic Ischemic Bilateral documented in this encounter
--- OUTSIDE RECORDS SUMMARY | 2024-02-14 10:05 | XMS_ITS | Encounter Summary ---
Author Organization [facility] Address [address] [place] [address] Care Team Providers Care Shellfish Sorter Name Role Phone Unavailable Primary Care Provider Unavailabl e Encounter Details Date Type Department Care Team (Latest Contact Info) Description 11/30/2023 1:00 PM CDT Ancillary Procedure Department of Ophthalmology in [place], [place] [address] [place] [phone] Suri Izquierdo M.D. [address] [place] [address] Hemorrhage Vitreous Left (HCC) Social History Tobacco Use Types Packs/Day Years Used Date Smoking Tobacco: Unknown [facility] Utilities Answer Date Recorded In the past 12 months has [employer] electric, gas, oil, or water company threatened [...] your living situation today? [facility] 07/25/2023 Sex and Gender Information Value Date Recorded Sex Assigned at Male 07/25/2023 8:23 PM CDT Legal Sex Male 4:05 PM TRAINING AND DEVELOPMENT MANAGER Gender Identity Male 07/25/2023 8:23 PM CDT Sexual Orientation Straight 07/25/2023 8: 23 PM CDT documented as of this encounter Plan of Treatment Upcoming Encounters Date Type Department Care Team (Latest Contact Info) Description 02/26/2024 1:00 PM TRAINING AND DEVELOPMENT MANAGER Ancillary Procedure Department of Ophthalmology in [place], [place] [address] [place] [phone] Suri Izquierdo M.D. [address] [place] [phone] 02/26/2024 1:30 PM TRAINING AND DEVELOPMENT MANAGER Ancillary Procedure Department of Ophthalmology in [place], [place] [address] [place] [phone] 02/26/2024 2:00 PM TRAINING AND DEVELOPMENT MANAGER Ancillary Procedure Department of Ophthalmology in [place], [place] [address] [place] [address] Suri Izquierdo M.D. [address] [place] [phone] 02/26/2024 2:15 PM TRAINING AND DEVELOPMENT MANAGER Ancillary Procedure Department of Ophthalmology in [place], [place] [address] [place] [address] Suri Izquierdo M.D. [address] [place] [phone] 03/21/2024 12:20 PM TRAINING AND DEVELOPMENT MANAGER Appointment Outpatient Procedure Center in [address] [phone] Suri Izquierdo M.D. [address] [place] [phone] documented as of this encounter Procedures Procedure [...]
== END 2024-02-14 10:03 | disposition home or self-care (01) ==
LOC: WOUND 10:02
PROVIDERS: PCP Family Medicine; Visit Provider Nurse Practitioner Family
DX: I89.0 Lymphedema, not elsewhere classified (principal); Z72.0 Tobacco use
CPT/HCPCS: G0463